=== PATIENT | male | born 1975 | race Caucasian/White ===

== ENCOUNTER → 2017-12-11 15:45 | Outpatient (CLI) | payer OTHER, SELFPAY ==
[2017-12-11 18:01] LABS: Amphetamine Urine VISTA NEGATIVE (<1000 ng/mL); Barbiturate Urine VISTA NEGATIVE (< 200 ng/mL); Benzodiazepine Urine VISTA NEGATIVE (< 200 ng/mL); Cocaine Urine VISTA NEGATIVE (< 300 ng/mL); Ecstacy Urine VISTA NEGATIVE (< 500 ng/mL); Methadone Urine VISTA NEGATIVE (< 300 ng/mL); PCP Urine VISTA NEGATIVE (< 25 ng/mL); THC Urine VISTA NEGATIVE (< 50 ng/mL); Vista UDS pH Range 6
== END ==
PROVIDERS: Family Provider Internal Medicine; PCP Internal Medicine; Visit Provider Anesthesiology
DX: F11.20 Opioid dependence, uncomplicated (principal)
CPT/HCPCS: 80307

== ENCOUNTER 2018-01-19 03:59 | Emergency (ER) | payer OTHER, SELFPAY ==
[2018-01-19 04:00] VITALS: BP 168/86; PULSE 104; RESP 20; TEMP 36.5; O2SAT 97; BMI 40.8
--- NOTE | 2018-01-19 04:07 | CT_ITS ---
STUDY: CT ABDOMEN AND PELVIS WITHOUT CONTRAST REASON FOR EXAM: Male, 42 years old. LOW ABDOMEN PAIN THAT RADIATES INTO BILATERAL FLANK AND NAUSEA THIS AM,ELEVATED BP RADIATION DOSAGE (If Supplied By Facility): CTDIvol = ( 23.63 ) mGy, DLP = ( 1387.22 ) mGycm TECHNIQUE: Transaxial images were obtained from the dome of the diaphragm to the symphysis pubis without oral contrast, and without intravenous contrast. Sagittal and coronal images were reconstructed. Individualized dose optimization techniques were used for this CT. COMPARISON: None. FINDINGS: The visualized lung bases are unremarkable. The visualized portions of the heart are within normal limits. There is a diffuse contour abnormality of the liver consistent with cirrhotic changes. There are surgical clips in the gallbladder fossa consistent with a prior cholecystectomy. There is moderate splenomegaly measuring 21 x 12 x 17 cm. Normal pancreas. Normal bilateral adrenal glands. Normal right kidney. Normal left kidney. Normal visualized stomach. Normal small intestine. Normal colon. The appendix is visualized and appears normal. Normal abdominal aorta. Normal inferior vena cava. Large varicose veins are seen in the retroperitoneum most likely represent portosystemic venous shunts. Normal urinary bladder. Normal abdominal wall. Normal osseous structures. CT/Abdomen/Pelvis without Cont IMPRESSION: Liver cirrhosis. Portal hypertension. Moderate splenomegaly. Large varicose veins are seen in the retroperitoneum most likely represent portosystemic venous shunts. Electronically Signed: Timoteo Harmon MD at 5:23 EDT Tel , Service support ,
--- NOTE | 2018-01-19 04:09 | ED.DCSUM_ITS ---
- ER Visit Summary Date of Service: 01/19/18 Chief Complaint: [] Left flank and back pain History of Present Illness: The patient is a 42 M planing of left flank and lower abdominal pain and back pain since 130 this morning approximately 2 and half hours ago. He came on suddenly a sleep continuous sharp pain. Difficult to get comfortable. Associated with nausea. He uses Zofran with minimal relief. No history of kidney stone. Never had this before. [place] normal before bed. Physical Examination: Vital signs reviewed General: Well-nourished well-developed Head: Normocephalic atraumatic Eyes: Pupils equal round and reactive to light extraocular movements intact ENT: TMs clear no hemotympanum no trauma Neck: Nontender full range of motion Cardiovascular: Regular rate rhythm no murmurs normal S1-S2 Respiratory: No distress clear to auscultation bilaterally chest nontender Abdomen: Soft nontender nondistended normal bowel sounds no masses Back: Nontender no CVA tenderness Extremities: Nontender active range of motion ?4 extremities no trauma Skin: Normal color no trauma Neuro alert oriented cranial nerves II through XII intact normal strength sensation reflexes Test Results: [] Emergency Department Course and Treatment: [] IV established given IV fluids Zofran Toradol and morphine. Lab work and CT abdomen pelvis obtained. Work shows a chronic thrombocytopenia at 50,000. Chemistries normal except glucose 133. Urinalysis normal. CT abdomen pelvis shows evidence of liver cirrhosis findings with moderate splenomegaly and varicosities. No stones seen or other abnormalities. This was discussed with the patient. He has been told he has a fatty liver in the past. He has never had hepatitis. He can follow-up with gastroenterology. At this time however reevaluation he just has some mild soreness in his right groin area. No hernia felt. Left-sided pain is gone. Is unclear to me the cause of this discomfort. Nonetheless I feel he can follow -up. Treatment Plan: [] Disposition: [] Impression: [] Lower abdominal pain This note was generated with [employer] dictation software. It may contain incorrect words, spelling, and punctuation that were not noted in review of the chart prior to signing ED Disposition - Plan for ED Patient: Chief Complaint: Abd Pain Referrals: Joselyn Cummings DO [Primary Care Provider] -
[2018-01-19] MEDS: Ondansetron 4 MG/2 ML Vial IV (04:17)
[2018-01-19 04:18] LABS: Absolute Lymphocyte Count 0.58 X10^3/ul (0.83-4.51); Absolute Neutrophil Count 6.7 X10^3/uL (2.0-7.7); Basophil# 0.01 X10^3/uL; Basophil% 0.1 % (0-1); Eosinophil# 0.14 X10^3/uL; Eosinophils% 1.7 % (0-5); Hematocrit 43.4 % (40-54); Hemoglobin 14.7 g/dl (13.0-16.5); Lymphocyte # 0.58 X10^3/ul (4.0); Lymphocyte % 7.2 % (19-41); Mean Corp Hgb Conc 33.9 g/gl (32-36); Mean Corpuscular Hgb 30.6 pg (27.0-32.0); Mean Corpuscular Volume 90.4 fL (80-94); Mean Platelet Vol. 11.6 fl (6.2-12.0); Monocyte# 0.62 X10^3/uL; Monocyte% 7.7 % (0-10); Neutrophil # 6.67 X10^3/uL (2.7-7.7); Neutrophil % 83.2 % (47-70); Platelet Count 59 K/mm3 (150-450); RBC Distribution Width CV 15.3 % (11.6-14.6); RBC Distribution Width SD 50.5 fl (35.1-43.9)
[2018-01-19] MEDS: morphine 8 MG/ML Syringe IV (04:18)
[2018-01-19] MEDS: Ketorolac 30 MG/ML Syringe IV (04:18)
[2018-01-19] MEDS: 0.9% Normal Saline 1,000 ML 1000 ML IV (04:18)
[2018-01-19 04:20] LABS: Differential Indicated SCAN CRITERIA MET; POSITIVE COUNT NO; POSITIVE DIFFERENTIAL YES; POSITIVE MORPHOLOGY NO
[2018-01-19 04:27] LABS: Anion Gap 5 (5-15); BUN 12 mg/dL (7-18); BUN/Creat Ratio 14.7 RATIO (10-20); Calcium,Total 8.4 mg/dL (8.5-10.1); Chloride 106 mmol/L (98-107); Creatinine, Serum 0.82 mg/dL (0.70-1.30); EST Glomerular Filtration Rate 109 mL/min (>60); Est Glom Filt Rate - Afr Amer 132 mL/min (>60); Estimated Creatinine Clearance 138.83 ml/min; Glucose 133 mg/dL (74-106); Potassium 4.4 mmol/L (3.5-5.1); Sodium Level 142 mmol/L (136-145)
[2018-01-19 04:51] LABS: Platelet Estimate MKD DEC (ADEQ)
[2018-01-19 04:52] LABS: Differential Comment SCANNED
[2018-01-19 04:56] LABS: Bacteria 0 SEEN /hpf (None Seen); Color, Urine Yellow (Yellow); Glucose, Dipstick Normal (Normal); Ketone-Dipstick Negative (Negative); Leukocyte Esterase-Dipstick Negative /ul (Negative); Mucous, Urine 0 SEEN /hpf (<or=2+); Nitrite-Dipstick Negative (Negative); Occult Blood-Urine Negative /ul (Negative); Protein-Dipstick Negative (Negative); Red Blood Cells-Urine 0 SEEN /hpf (0-5); Specific Gravity, Urine 1.015 (1.002-1.030); Squamous Epithelial Cells - UA 0 SEEN /hpf (0-5); Urine Bilirubin Dipstick Negative (Negative); Urine Clarity Clear (Clear); Urine Urobilinogen Normal (Normal); White Blood Cells 0 SEEN /hpf (0-5)
--- NOTE | 2018-01-19 05:37 | ED.DEP ---
ED Disposition - Plan for ED Patient: Disposition: Home or Assisted Living Chief Complaint: Abd Pain Instructions: ED Abdominal Pain Unkn Cause Referrals: Joselyn Cummings DO [Primary Care Provider] - Vahe Rowell MD [STAFF PHYSICIAN] -
[2018-01-19 05:47] VITALS: BP 157/68; PULSE 106; RESP 18; O2SAT 98
--- NOTE | 2018-01-19 05:48 | ED.RN ---
IV DC'ED, CATHETER INTACT, SMALL GAUZE DRESSING PLACED. DISCHARGE INSTRUCTIONS GIVEN TO AND REVIEWED WITH PATIENT, PATIENT DENIES QUESTIONS OR CONCERNS AND VOICES UNDERSTANDING OF DISCHARGE INSTRUCTIONS. PT AMBULATES OUT OF ROOM WITHOUT DIFFICULTY.
== END 2018-01-19 05:49 | disposition home or self-care (01) ==
PROVIDERS: Emergency Provider Emergency Medicine; Family Provider Internal Medicine; PCP Internal Medicine
DX: R10.30 Lower abdominal pain, unspecified (principal); E66.9 Obesity, unspecified; R11.0 Nausea; E11.9 Type 2 diabetes mellitus without complications; Z86.718 Personal history of other venous thrombosis and embolism; Z86.14 Personal history of Methicillin resistant Staphylococcus aureus infection; K74.60 Unspecified cirrhosis of liver; R16.1 Splenomegaly, not elsewhere classified; I83.90 Asymptomatic varicose veins of unspecified lower extremity
CPT/HCPCS: 74176; 80048; 81001; 85025; 96361; 96374; 96375; 99283; J7030; A4216; J2405

== ENCOUNTER → 2018-02-09 07:25 | Outpatient (CLI) | payer OTHER, SELFPAY | PROVIDERS: Family Provider Internal Medicine; PCP Internal Medicine; Visit Provider Anesthesiology | DX: Z53.9 Procedure and treatment not carried out, unspecified reason (principal) ==

== ENCOUNTER → 2018-04-23 17:56 | Outpatient (CLI) | payer SELFPAY ==
[2018-04-23 19:16] LABS: Amphetamine Urine VISTA POSITIVE (<1000 ng/mL); Barbiturate Urine VISTA NEGATIVE (< 200 ng/mL); Benzodiazepine Urine VISTA NEGATIVE (< 200 ng/mL); Cocaine Urine VISTA NEGATIVE (< 300 ng/mL); Ecstacy Urine VISTA NEGATIVE (< 500 ng/mL); Methadone Urine VISTA NEGATIVE (< 300 ng/mL); PCP Urine VISTA NEGATIVE (< 25 ng/mL); THC Urine VISTA NEGATIVE (< 50 ng/mL); Vista UDS pH Range 6
== END ==
PROVIDERS: Family Provider Internal Medicine; PCP Internal Medicine; Visit Provider Anesthesiology Pain Medicine
DX: F11.20 Opioid dependence, uncomplicated (principal)
CPT/HCPCS: 80307

== ENCOUNTER → 2018-07-16 15:01 | Outpatient (CLI) | payer OTHER, SELFPAY ==
[2018-07-16 16:31] LABS: International Normalized Ratio 1.3; Prothrombin Time (Protime)PT. 16.5 SECONDS (11.7-14.9)
[2018-07-16 16:32] LABS: Partial Thromboplast Time 36.7 Seconds (24.1-36.2)
== END ==
PROVIDERS: Family Provider Internal Medicine; PCP Internal Medicine; Referring Provider Anesthesiology; Visit Provider Anesthesiology
DX: K74.69 Other cirrhosis of liver (principal)
CPT/HCPCS: 36415; 85610; 85730

== ENCOUNTER → 2018-09-17 19:23 | Outpatient (CLI) | payer OTHER, SELFPAY ==
[2018-09-17 20:20] LABS: Amphetamine Urine VISTA POSITIVE (<1000 ng/mL); Barbiturate Urine VISTA NEGATIVE (< 200 ng/mL); Benzodiazepine Urine VISTA NEGATIVE (< 200 ng/mL); Cocaine Urine VISTA NEGATIVE (< 300 ng/mL); Ecstacy Urine VISTA NEGATIVE (< 500 ng/mL); Methadone Urine VISTA NEGATIVE (< 300 ng/mL); PCP Urine VISTA NEGATIVE (< 25 ng/mL); THC Urine VISTA NEGATIVE (< 50 ng/mL); Vista UDS pH Range 6
== END ==
PROVIDERS: Family Provider Internal Medicine; PCP Internal Medicine; Visit Provider Anesthesiology
DX: F11.20 Opioid dependence, uncomplicated (principal)
CPT/HCPCS: 80307

== ENCOUNTER 2018-09-22 16:00 | Outpatient (RCR) | payer OTHER, SELFPAY ==
--- NOTE | 2018-08-23 14:34 | HP.PTEVAL_ITS ---
Patient's Visit Information LIBRADO CARLSON is a 43 year old M referred to Physical Therapy by Rafael Beck MD with a diagnosis of Back pain, leg pain.. Date of Evaluation: 08/23/18 Physical Therapist: Robe Blair DPT, OC - Visit Plan Frequency: 3x /Week Duration: 4-6 Weeks Plan: 3x/week x 3-6 start with pool therapy for movement of LB, postural correection, L/S ext and core, LE,postural strength/ex. Progress to I or land as helpful. Overall pateint is very painful and if improvements not made, I would recommend return to doctor for possible referral to ortho. Although they could not heklp him 2 yrs ago, things may have changed. - Subjective Subjective: Deteriorating disc in LB. R LBP constant for 3 years, no specific onset incident. Had MRI and showed degeneration. Saw surgeon last year and cannot help him. Is in pain management with injections, got stomach pain and catscan showed cirrhosis so no more injections. On oxycodone for LBP was 3x/day and down to 2x/day. Sleep is interrupted as he cannot get to sleep, rolling really hurts. Turning too quick gives shot of pain like it does rolling at night. Leg cramps at night 50% of nights in quad and calf. Intermittent edema in legs but not lately. 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 Not missed work lately but has in past. Basic aDLS are a pain. Uses grabber a lot at home. Can dress self. I shower. Is not riding motorcycle and avoids any fun stuff due to back pain. [place] snot ride bikes. Did ride them al little in summer but worse lately. Walks dogs at night 15 minutes, worse as he goes. Lying down is best posiition. No problems with bowel or bladder. - Pain R LBP Pain Intensity (Out of 10): 7 Pain Intensity Range: 5, 7 Comment: bad last couple weeks. - Objective leans R in sitting. slow transfers. Coughing hurts. Pt is hesitant with all movements. flat lordosis and very limited pelvic and postural movments. LB AROM ext max limited and painful centrally, R SB limited>L and painful to R. Flexion mod limited and hesitant. HS adn gastroc mod tight, quads mod tight. + slump R and + SLR R. reflexes 2/3 patella and achilles. Sensation LE WNL to gross light touch. Strength LE 5/5 ankles, 4/5 R hip and knee due to pain with flexion and extension of both. PPU 1/2 way and painful self limiting. slightly better extension after PPUx10. Safe and I with gait and trasnfers albeit slow. - Goals Goal 1:: Trasnfer out of chair and fro table without evidence slowness or pain Goal Time Frame: 4-6 Weeks Goal 2:: Full L/S AROM with no greater than 1/10 pain. Goal Time Frame: 4-6 Weeks Goal 3:: Pt feel 50% better at 1-2/10 pain at worst. Goal Time Frame: 4-6 Weeks Goal 4:: I approp HEP to limit future problems. Goal Time Frame: 4-6 Weeks Goal 5:: Sleep without discomfort at night Goal Time Frame: 4-6 Weeks - Rehabilitation Potential Physical Therapy Diagnosis: LB radiulopathy Rehabilitation Potential: Fair - Anticipated Interventions Patient/Client Instruction: Educate patient on: Condition, Plan of Care For the Purpose of:: To decrease pain Therapeutic Exercise to Include: Strength training, Flexibilty training, In an aquatic setting, Passive ROM, Active ROM, Dynamic Lumbar Stabilization, Jose Exercises For the Purpose of:: To decrease pain, To increase ROM, To improve nutrient delivery to tissue, To improve muscle performance and motor function, To increase tolerance to activity/condition/position, To improve ability of physical actions for home/community/work/leisure Thank you for the opportunity to evaluate your patient. For Medicare and Medicare HMO plans, please review the plan of care and approve it. It will need to be FAXED BACK to us at [phone] for Medicare purposes. Please let me know if there are questions or concerns regarding this plan of care. Physician Signature: Date:
--- NOTE | 2018-12-06 08:02 | HP.PT.NRP ---
HP - Discharge Summary (1) - Patient Information LIBRADO CARLSON was seen in my office for initial evaluation on 08/23/18. The following Plan of Care was established for this patient: Initial Frequency: 3x /Week Initial Duration: 4-6 Weeks - Anticipated Interventions Patient/Client Instruction: Educate patient on: Condition, Plan of Care For the Purpose of:: To decrease pain Therapeutic Exercise to Include: Strength training, Flexibilty training, In an aquatic setting, Passive ROM, Active ROM, Dynamic Lumbar Stabilization, Jose Exercises For the Purpose of:: To decrease pain, To increase ROM, To improve nutrient delivery to tissue, To improve muscle performance and motor function, To increase tolerance to activity/condition/position, To improve ability of physical actions for home/community/work/leisure This patient was last seen in our office 09/22/18. Pertinent comments regarding their Physical therapy will appear below: Pt seen 5 visits of his 12 visit POC adn then neglected to schedule any further visits. At this point, it has been over two months and i will disconinue due to non attendance. At this point I will be discontinuing this patient from physical therapy. I would be happy to see this patient again in the future if found appropriate by the physician. Thank you! Robe Blair, DPT, OCS, CSCS
== END 2018-09-22 19:00 | disposition home or self-care (01) ==
LOC: PT 16:00
PROVIDERS: Family Provider Internal Medicine; PCP Internal Medicine; Referring Provider Anesthesiology; Visit Provider Anesthesiology
DX: M54.9 Dorsalgia, unspecified (principal); M79.606 Pain in leg, unspecified
CPT/HCPCS: 97113; 97162

== ENCOUNTER → 2018-11-12 18:18 | Outpatient (CLI) | payer OTHER, SELFPAY ==
[2018-11-12 18:58] LABS: Amphetamine Urine VISTA POSITIVE (<1000 ng/mL); Barbiturate Urine VISTA NEGATIVE (< 200 ng/mL); Benzodiazepine Urine VISTA NEGATIVE (< 200 ng/mL); Cocaine Urine VISTA NEGATIVE (< 300 ng/mL); Ecstacy Urine VISTA NEGATIVE (< 500 ng/mL); Methadone Urine VISTA NEGATIVE (< 300 ng/mL); PCP Urine VISTA NEGATIVE (< 25 ng/mL); THC Urine VISTA NEGATIVE (< 50 ng/mL); Vista UDS pH Range 6
== END ==
PROVIDERS: Family Provider Internal Medicine; PCP Internal Medicine; Visit Provider Anesthesiology
DX: F11.20 Opioid dependence, uncomplicated (principal)
CPT/HCPCS: 80307

== ENCOUNTER 2019-01-16 23:08 | Inpatient (IN) | payer OTHER, SELFPAY ==
[2019-01-16 23:09] VITALS: BP 157/79; PULSE 96; RESP 20; TEMP 37; O2SAT 99; BMI 38.5
--- NOTE | 2019-01-17 00:45 | ED.VISSUMM ---
- ER Visit Summary Date of Service: 01/17/19 Chief Complaint: Acute on chronic back pain with chronic pain syndrome Right lower leg redness, swelling and pain with chills. History of Present Illness: The patient is a 43 M history of liver cirrhosis, fatty liver, prior MRSA and cholecystectomy. Patient states he is getting chemotherapy back pain for last 9 days. See pain management. He denies any falls or trauma. He is on no blood thinners. He also states he had a prior DVT in his right lower leg after surgery. He is a right lower leg pain, redness and swelling the to date. No fever but chills. No fall or trauma to his leg. Physical Examination: Middle-aged male complaining of pain. Vital signs are stable. Temperature 98.6. He does not look septic or toxic. HEENT exam unremarkable. Neck nontender. No lymphadenopathy. Lungs clear to auscultation bilaterally. Heart regular rate and rhythm no murmur. Abdomen soft and nontender. Normal bowel sounds no peritoneal signs. Patient is moving all 4 extremities. Neurovascular intact. Left lower extremity is unremarkable. Right lower extremity from the knee to the foot has 1+ pitting edema. Redness and warmth. Tender anteriorly. No cords. Clinically that anterior right lower leg looks like cellulitis. He has dorsi and plantar flexion in both lower extremities. Normal DP pulses. Back the cervical, thoracic and lumbar spines are nontender. There is no signs of trauma. He has right SI tenderness. Neurologically is awake alert with no focal motor or sensory deficits. Test Results: CBC White count 6.5. Hemoglobin 13. No bands. Chemistries normal. Blood cultures x2 sent. Emergency Department Course and Treatment: Treated with morphine, Zofran and Toradol for pain. Started on Zosyn for right lower extremity cellulitis. He will also need an ultrasound of the right lower extremity due to his history of a prior DVT but that is unavailable at this time. Treatment Plan: Repeat exam at 020 8 AM patient is doing well. He I went over his test results. I spoke to the hospitalist about admission. At this time we will treat him for possible right lower leg cellulitis. However this could be a DVT and will need ultrasound. The hospitalist and I discussed that. Disposition: Admission Impression: Right lower extremity cellulitis with edema Acute on chronic back pain Rule out DVT right lower extremity pending noninvasive study This note was generated with [employer] dictation software. It may contain incorrect words, spelling, and punctuation that were not noted in review of the chart prior to signing ED Disposition - Plan for ED Patient: Referrals: Joselyn Cummings DO [Primary Care Provider] -
[2019-01-17] MEDS: Ondansetron 4 MG/2 ML Vial IV ×2 (01:08→08:35)
[2019-01-17] MEDS: Ketorolac 30 MG/ML Syringe IV (01:10)
[2019-01-17] MEDS: morphine 8 MG/ML Syringe 6 MG IV (01:13)
[2019-01-17 01:19] LABS: Absolute Lymphocyte Count 0.57 X10^3/ul (0.83-4.51); Absolute Neutrophil Count 5.4 X10^3/uL (2.0-7.7); Basophil# 0.01 X10^3/uL; Basophil% 0.2 % (0-1); Eosinophil# 0.12 X10^3/uL; Eosinophils% 1.9 % (0-5); Hematocrit 38.8 % (40-54); Hemoglobin 13.6 g/dl (13.0-16.5); Lymphocyte # 0.57 X10^3/ul (4.0); Lymphocyte % 8.8 % (19-41); Mean Corp Hgb Conc 35.1 g/gl (32-36); Mean Corpuscular Hgb 31.3 pg (27.0-32.0); Mean Corpuscular Volume 89.4 fL (80-94); Monocyte# 0.34 X10^3/uL; Monocyte% 5.3 % (0-10); Neutrophil # 5.41 X10^3/uL (2.7-7.7); Neutrophil % 83.8 % (47-70); RBC Distribution Width CV 14.9 % (11.6-14.6); RBC Distribution Width SD 48.7 fl (35.1-43.9); Red Blood Count 4.34 M/mm3 (4.6-6.2); White Blood Count 6.5 K/mm3 (4.4-11.0)
[2019-01-17 01:23] LABS: Anion Gap 5 (5-15); BUN 9 mg/dL (7-18); BUN/Creat Ratio 11.9 RATIO (10-20); Calcium,Total 8.2 mg/dL (8.5-10.1); Chloride 105 mmol/L (98-107); Creatinine, Serum 0.76 mg/dL (0.70-1.30); EST Glomerular Filtration Rate 119 mL/min (>60); Est Glom Filt Rate - Afr Amer 144 mL/min (>60); Estimated Creatinine Clearance 148.25 ml/min; Glucose 102 mg/dL (74-106); Potassium 3.5 mmol/L (3.5-5.1); Sodium Level 139 mmol/L (136-145)
[2019-01-17 01:33] LABS: Platelet Count 49 K/mm3 (150-450)
[2019-01-17 01:34] LABS: Differential Comment SCANNED; Differential Indicated SCAN CRITERIA MET; POSITIVE COUNT YES; POSITIVE DIFFERENTIAL YES; POSITIVE MORPHOLOGY NO; Platelet Estimate MKD DEC (ADEQ); Red Cell Morphology NORM C+C NORMAL (NORM C&C)
--- NOTE | 2019-01-17 01:34 | ED.RN ---
dr whitley made aware of platelets of 49.
--- NOTE | 2019-01-17 02:02 | HP.PCM_ITS ---
Problem List (1) DVT (deep venous thrombosis) Status: Chronic Qualifiers: DVT location: lower extremity Affected thrombotic vein of extremity: unspecified vein of extremity Chronicity: unspecified Laterality: unspecified laterality Qualified Code(s): I82.409 - Acute embolism and thrombosis of unspecified deep veins of unspecified lower extremity (2) Morbid obesity due to excess calories Status: Chronic (3) Cellulitis Status: Acute Qualifiers: Site of cellulitis: extremity Site of cellulitis of extremity: lower extremity Laterality: right Qualified Code(s): L03.115 - Cellulitis of right lower limb History of Present Illness Date of Admission: 01/17/19 Chief Complaint: right leg pain The patient is a 43 year old M Soriaon cirrhosis; MRSA of the left ankle; DVT after surgery on the right leg; chronic back pain who follows up with pain management; and who presented to the emergency department with 1 day history of progressively worsening excruciating stabbing and throbbing pain of his right leg that increases with movement. His pain is nonradiating. Associated with his symptoms is chills; nausea without vomiting as well as anorexia. At the emergency department patient was given morphine and Toradol to help with his pain. Also patient noticed swelling, redness and increased warmth of his right lower extremity. Also patient reports of increasing pain of his lower back. Significantly patient follows up with Dr. Beck; pain management doctor associated with [facility]. Patient reported that every 2-4 months he gets shots at his back. He reported that 5 days after receiving his last shot he noticed increasing pain at his back. At emergency department patient was given morphine; Zofran; Toradol and Zosyn. Patient has been using a scooter for mobility. Past Medical History Past Medical History (Chronic Problems): Chronic Problems DVT (deep venous thrombosis) (Chronic) Morbid obesity due to excess calories (Chronic) Diabetes mellitus with complication (Chronic) Edema (Chronic) Venous insufficiency (Chronic) Allergies No Known Allergies Allergy (Verified 01/19/18 03:59) Home Medications: Ambulatory Orders Medication Instructions Recorded Oxycodone HCl/Acetaminophen 1 - 2 tablet PO Q6H PRN PRN #15 08/17/16 [Percocet 5-325] tablet Gabapentin [Neurontin] 300 mg PO BIDCM 01/07/17 Methocarbamol [Robaxin] 500 mg PO QHS 01/07/17 Ondansetron [Zofran Odt] 4 mg PO Q8H PRN PRN #10 tablet 06/30/17 Dextroamp-Amphet ER 30 mg Cap 30 mg PO BID 01/17/19 Surgical History: cholecystectomy, - - Foot surgery, Finger surgery, Testicular surgery, ? EGD/L[facility]aro. Psychiatric History: Attn. deficit disorder Lives: With Family Smoking Status: Former smoker Alcohol: None - *Family History Maternal History Items: COPD, Hypertension Paternal History Items: Cancer Review of Systems Constitutional: Reports: Chills. Denies: Fever, Weight Change HEENT: Denies: Head Aches, Sinus Congestion, Sinus Drainage Cardiovascular: Reports: Edema - Right leg. Denies: Chest Pain, Palpitations Respiratory: Denies: Cough, Shortness of breath at rest, Sputum production Gastrointestinal: Reports: Nausea. Denies: Abdominal Pain, Vomiting Genitourinary: Denies: Dysuria Musculoskeletal: Reports: Back Pain, Leg Pain. Denies: Joint Pain Skin: Denies: Rash, Wounds Neurological: Denies: Numbness, Tingling, Focal weakness Psychiatric: Denies: Anxiety, Depression, Homicidal Ideations, Suicidal Ideations Hematologic/ Lymphatic: Denies: Easy Bruising, Easy Bleeding VTE Information - Inpt Only VTE Present on Admission: No VTE Mechan Device Prophylaxis: None VTE Pharm Prophylaxis ordered?: Yes Patient Problems: Active and Suspected Problems Cellulitis (Acute) - Physical Exam General: Alert, Oriented x3, Cooperative HEENT: Atraumatic, PERRLA, EOMI, Normocephalic Neck: Supple, No JVD, Negative Carotid Bruits Lungs: Clear to auscultation, Normal air movement Cardiovascular: Regular rate, No murmurs Abdomen: Bowel Sounds Present, Soft, Non Tender Extremities: Capillary Refill Less than 3 Seconds, Edema - Right leg, Tenderness - Right leg Skin: - - Erythema and increased redness of right leg. Ulcer on right fowler. Musculoskeletal: No Tenderness to Palpation of Joints or Extremities Neurological: Cranial nerves II-XII grossly intact Psych/Mental Status: Normal Affect, Appropriate Vital Signs Temp Pulse Resp BP Pulse Ox 98.6 F 96 20 H 157/79 H 99 01/16/19 23:09 01/16/19 23:09 01/16/19 23:09 01/16/19 23:09 01/16/19 23:09 Oxygen Delivery Method Room Air Weight: 139.706 kg Body Mass Index (BMI) 38.5 Finger Stick Blood Glucose 106 Laboratory Tests Past 24 Hrs 01/17/19 01/17/19 01:00 01:00 WBC 6.5 RBC 4.34 L Hgb 13.6 Hct 38.8 L MCV 89.4 MCH 31.3 MCHC 35.1 RDW 14.9 H RDW Differential 48.7 H Plt Count 49 L* MPV 11.0 Immature Gran % (Auto) 0.000 Neut % (Auto) 83.8 H Lymph % (Auto) 8.8 L [place] % (Auto) 5.3 Eos % (Auto) 1.9 Baso % (Auto) 0.2 Absolute Neuts (auto) 5.4 Absolute Lymphs (auto) 0.57 L Total Counted Not Reportable Differential Comment SCANNED Diff Path Review May foll Platelet Estimate MKD DEC RBC Morphology NORM C+C Sodium 139 Potassium 3.5 Chloride 105 Carbon Dioxide 29.0 Anion Gap 5 BUN 9 Creatinine 0.76 Estim Creat Clear Calc 148.25 Est GFR (MDRD) Af Amer 144 Est GFR (MDRD) Non-Af 119 BUN/Creatinine Ratio 11.9 Glucose 102 Calcium 8.2 L Assessment/Plan All Active Problems Cellulitis (Acute) Intervertebral disc disorder with radiculopathy of lumbar region (Acute) Malnutrition (Resolved) Ulcer of left ankle (Resolved) Other intervertebral disc degeneration, lumbar region (Acute) Other intervertebral disc degeneration, lumbar region (Acute) Spinal stenosis of lumbar region with neurogenic claudication (Acute) Spinal stenosis of lumbar region with neurogenic claudication (Acute) Lumbar disc prolapse with compression radiculopathy (Acute) Lumbar disc disease with radiculopathy (Acute) Lumbar disc disease with radiculopathy (Acute) Intervertebral disc disorder with radiculopathy of lumbar region (Acute) Cellulitis of left ankle (Resolved) The patient is a 43 year old M Sor[place] cirrhosis; MRSA of the left ankle; DVT after surgery on the right leg; chronic back pain who follows up with pain management; and who presented to the emergency department with 1 day history of progressively worsening excruciating stabbing and throbbing pain of his right leg with associated chills; nausea without vomiting and anorexia consistent with likely cellulitis. Acute Cellulitis Also on right fowler probable portal of entry of bacteria. Patient received Zosyn in the emergency department. Patient has no increased risk of Pseudomonas so will switch to Ancef 2 g every 8 hours. Follow CBC and BMP. We will get ultrasound of his right lower extremity to rule out DVT. Continue home Percocet as needed. Morphine as needed added to regimen. IV Zofran ordered. Because of his history of [place] cirrhosis will shy away from acetaminophen. Blood cultures were ordered in the emergency department, follow Acute on chronic lower back pain. Pain management as above Methocarbamol continued Gabapentin continued. Consider discussing case with Dr. Beck; his pain management doctor. PT and OT to work patient. ADHD Dextroamphetamine continued. Diabetes mellitus On presentation his blood glucose was within goal. Diet controlled at home Calorie controlled diet ordered. Thrombocytopenia On admission his platelet was 49 Chronic Differential diagnosis include liver disease Trend Elevated blood pressure without diagnosis of hypertension On presentation his blood pressure was not within goal. Trend blood pressures DVT prophylaxis Subcutaneous Lovenox. Code Visit OBSV E&M: [id number] Initial observation care L3
--- NOTE | 2019-01-17 03:20 | VDLE_ITS ---
Reason For Study: Pain RLE RIGHT LEFT GSV is normal. CFV is compressible, spontaneous, phasic, CFV is compressible, spontaneous, phasic, competent, and demonstrates normal competent and demonstrates normal augmentation. augmentation. FV is compressible, spontaneous, phasic, competent and demonstrates normal augmentation. POP V is compressible, spontaneous, phasic, competent and demonstrates normal augmentation. T/P Trunk is compressible. PTV is compressible. RT PerV is compressible. Rt SoleusV is dilated and non compressible consistent with acute DVT. Procedure Exam performed portable in patient room. A preliminary report was called and/or faxed to [facility]. Interpretation Summary Acute deep venous thrombosis right soleus vein. Patent and compressible right great saphenous vein Normal flow patterns left common femoral vein. Ordering Physician: Patrick Delgado Referring Physician: Joselyn Cummings Performed By: Charissa Aj, CYNDI, RVT
[2019-01-17 03:38] VITALS: BMI 38.9; BMI 39.0
[2019-01-17 04:00] VITALS: BMI 39.0
[2019-01-17 04:06] VITALS: BP 129/59; PULSE 103; RESP 18; TEMP 37.3; O2SAT 94
[2019-01-17 04:18] LABS: Albumin, Serum 3.6 g/dL (3.2-5.0)
[2019-01-17] MEDS: oxyCODONE 5 MG Tablet PO ×3 (04:59→19:35)
[2019-01-17] MEDS: Cefazolin 2 GM in 0.9% Normal Saline 100 ML IV ×2 (05:00→14:50)
[2019-01-17 07:35] VITALS: O2SAT 91
[2019-01-17 08:06] VITALS: BP 125/65; PULSE 78; RESP 16; TEMP 36.8; O2SAT 98
[2019-01-17] MEDS: Gabapentin 300 MG Capsule PO ×2 (08:22→16:53)
[2019-01-17] MEDS: 0.9% NaCl Peripheral Flush Adult/Peds IV (08:35)
[2019-01-17 11:46] LABS: Pathologist Review Reviewed
[2019-01-17] MEDS: APIXABAN 5 MG TABLET 10 MG PO ×2 (12:22→21:14)
--- NOTE | 2019-01-17 12:28 | CASEMGMT ---
RN CM Assessment Presentation: Cellulitis, radiculopathy of lumbar region Intro role of CM and purpose of RN CM assessment to patient in room. Pt is sleepy but able to participate in assessment. Demographics, PCP and Pharmacy verified. Pt states prior to a week ago he was independent, but back pain and leg pain have made it difficult for him to ambulate. He was using an umbrella around the house. RN CM let him know his can purchase cane for him for safety, but CM will review Pt/OT notes. Pt continued to work, used [employer] work. PCP: Dr. Joselyn Cummings Preferred Pharmacy: [facility] Insurance:[facility] Prescription Benefit: yes LNOK: Carmencita Ceballos Living Arrangements: First floor set up with bathroom and bedroom. can assist, but pt was independent prior to this episode. Transportation: drives DME: no HHC: no Patient DC goals: Home DC PLAN: anticipate home on discharge. PT/OT evaluations deferred for today. Rickie FERRELL RN ACM
--- NOTE | 2019-01-17 13:30 | PCM.PROGNOTE ---
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 Temp at admission to the emergency department was 98.6. White blood cell count was 6.5 with 84% neutrophils. Platelet count was low at 49,000 and review of old labs shows it has been chronically low since 2014. BMP was unremarkable. Blood cultures were drawn in the emergency department and he was treated with Zosyn. He was admitted to the hospital and was started on Ancef by the night hospitalist. A venous ultrasound was done on the right lower extremity and showed acute deep vein thrombosis of the right soleus vein. The right greater saphenous vein was patent and compressible and there was normal flow in the left common femoral vein. He has had MRSA infection in the RLE MM and had to have I&D in the past. This was in 2016. Recently he has been having increased back pain and has been using a scooter to get around at work. No FH of hypercoagulable disorders. His legs always swell and he does not consistently wear compression stockings. He does not moisturize his legs and the skin of the RLE is cracked open in several spots. He has a venous stasis ulcer on the R distal lateral leg that is currently healed but, when his legs swell a lot it breaks open. There is also a very small ulceration on the anterior fowler about mid fowler that appears to have a yellow crust. - Physical Exam General: Alert, Oriented x3, Cooperative, No apparent distress HEENT: Atraumatic, PERRLA, Normocephalic Oral: Moist Mucosa Neck: Supple Lungs: Clear to auscultation Cardiovascular: Regular rate, Regular Rhythm, Normal S1, Normal S2, No Gallop Abdomen: Bowel Sounds Present, Soft, Non Tender, Non-Distended, - - no pitting edema in the flanks Extremities: No clubbing, No cyanosis, Edema - of the RLE distl to the knee. There is erythema and increased warmth to touch. The skin over the distal leg is dry and cracked. there is a healed venous stasis ulcer on the lateral distal LE that periodically breaks open when his legs swell. there is a pinpoint opneing in the skin over the mid tibial shaft that has a small gold crust on it. No purulent DC. Neurological: Cranial nerves II-XII grossly intact, Neuro grossly intact Psych/Mental Status: Appropriate Vital Signs Temp Pulse Resp BP Pulse Ox 98.3 F 78 16 125/65 H 98 01/17/19 08:06 01/17/19 08:06 01/17/19 08:06 01/17/19 08:06 01/17/19 08:06 Oxygen Delivery Method Room Air Weight: 311 lb 15.265 oz Body Mass Index (BMI) 38.9 Finger Stick Blood Glucose 106 Intake and Output for Last 24 Hours 01/15/19 01/16/19 01/17/19 23:59 23:59 23:59 Intake Total 368 / 368 Balance 368 / 368 Laboratory Tests Past 24 Hrs 01/17/19 01/17/19 01/17/19 01:00 01:00 01:00 WBC 6.5 RBC 4.34 L Hgb 13.6 Hct 38.8 L MCV 89.4 MCH 31.3 MCHC 35.1 RDW 14.9 H RDW Differential 48.7 H Plt Count 49 L* MPV 11.0 Immature Gran % (Auto) 0.000 Neut % (Auto) 83.8 H Lymph % (Auto) 8.8 L [place] % (Auto) 5.3 Eos % (Auto) 1.9 Baso % (Auto) 0.2 Absolute Neuts (auto) 5.4 Absolute Lymphs (auto) 0.57 L Total Counted Not Reportable Differential Comment SCANNED Diff Path Review Reviewed Platelet Estimate MKD DEC RBC Morphology NORM C+C Sodium 139 Potassium 3.5 Chloride 105 Carbon Dioxide 29.0 Anion Gap 5 BUN 9 Creatinine 0.76 Estim Creat Clear Calc 148.25 Est GFR (MDRD) Af Amer 144 Est GFR (MDRD) Non-Af 119 BUN/Creatinine Ratio 11.9 Glucose 102 Calcium 8.2 L Albumin 3.6 Medical Necessity - Tobacco Use Smoking Status: Former smoker Assessment/Plan All Active Problems Cellulitis (Acute) Intervertebral disc disorder with radiculopathy of lumbar region (Acute) Malnutrition (Resolved) Ulcer of left ankle (Resolved) Other intervertebral disc degeneration, lumbar region (Acute) Other intervertebral disc degeneration, lumbar region (Acute) Spinal stenosis of lumbar region with neurogenic claudication (Acute) Spinal stenosis of lumbar region with neurogenic claudication (Acute) Lumbar disc prolapse with compression radiculopathy (Acute) Lumbar disc disease with radiculopathy (Acute) Lumbar disc disease with radiculopathy (Acute) Intervertebral disc disorder with radiculopathy of lumbar region (Acute) Cellulitis of left ankle (Resolved) Impressions 1. cellulitis and DVT RLE - hx of MRSA cellulitis 2. 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 thrombocytopenia due to DEAN/cirrhosis 4. obesity 5. DVT R 6. 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 hx if DM II - diet controlled at present DC Ancef and start Vancomycin Check an ESR, CRP and HGBA1C Started on Eliquis loading dose Eucerin BID elevate the LE's to control edema Reinforced the need for compression stockings and moisturizing his legs every day to prevent venous stasis ulcers in the future. advised weight loss to help with swelling of the LE's and with back pain. consult with the implementation consultant for weight loss
[2019-01-17 14:10] VITALS: BP 129/64; PULSE 97; RESP 16; TEMP 37.6; O2SAT 98
--- NOTE | 2019-01-17 16:38 | PCM.RX.CS ---
Consult Pharmacy has been consulted to manage selected antiobiotic: Vancomycin Type of Consult: New start Suspected Infection: Skin/Soft tissue Prior Doses of Antibiotics Received/Current Regimen: None Labs: Sodium 139 mmol/L (136-145) 01/17/19 01:00 Potassium 3.5 mmol/L (3.5-5.1) 01/17/19 01:00 Chloride 105 mmol/L (98-107) 01/17/19 01:00 Carbon Dioxide 29.0 mmol/L (21.0-32.0) 01/17/19 01:00 Anion Gap 5 (5-15) 01/17/19 01:00 BUN 9 mg/dL (7-18) 01/17/19 01:00 Creatinine 0.76 mg/dL (0.70-1.30) 01/17/19 01:00 Est GFR (MDRD) Af Amer 144 mL/min (>60) 01/17/19 01:00 Est GFR (MDRD) Non-Af 119 mL/min (>60) 01/17/19 01:00 BUN/Creatinine Ratio 11.9 RATIO (10-20) 01/17/19 01:00 Glucose 102 mg/dL (74-106) 01/17/19 01:00 Weight used for dosin kg Estimated Creatinine Clearance: 148ml/min Goal Trough: 15-20 mcg/mL Pharmacy Plan for Drug Dosing: Vancomycin for cellulitis. Pt will receive a standard loading dose of 2grams (based on 15mg/kg) over 2 hours to start 01/17/19 at 1630. The initial dose recommendation is for Vancomycin 1500mg q8h to start 6 hours after the loading dose. The dose was started early due to the pt's bmi. An initial trough will be drawn 01/18/19 at 2130. Pharmacy Service will continue to monitor and adjust dosing as required. Follow-Up Labs: Trough Vancomycin - 01/18/19 at 2130
[2019-01-17 17:01] LABS: CRP < 2.90 mg/L (0.0-3.0)
[2019-01-17 17:29] LABS: Erythrocyte Sedimentation Rate < 1 mm/hr (0-15)
[2019-01-17] MEDS: DEXTROAMPHETAMINE/AMPHETAMINE 30 MG TABLET PO (17:52)
[2019-01-17 18:07] LABS: Hemoglobin A1c 4.8 % (4.2-6.3)
[2019-01-17 19:38] VITALS: BP 149/60; PULSE 94; RESP 18; TEMP 36.9; O2SAT 97
[2019-01-17] MEDS: Methocarbamol 500 MG Tablet PO ×2 (21:14)
[2019-01-17] MEDS: Morphine 2 MG/ML Syringe IV (22:53)
[2019-01-18 01:40] VITALS: BP 133/62; PULSE 86; RESP 18; TEMP 36.7; O2SAT 96
[2019-01-18] MEDS: oxyCODONE 5 MG Tablet PO ×2 (04:01→10:47)
[2019-01-18 06:00] LABS: Absolute Lymphocyte Count 0.83 X10^3/ul (0.83-4.51); Absolute Neutrophil Count 4.1 X10^3/uL (2.0-7.7); Basophil# 0.03 X10^3/uL; Basophil% 0.5 % (0-1); Eosinophil# 0.21 X10^3/uL; Eosinophils% 3.6 % (0-5); Hematocrit 35.9 % (40-54); Hemoglobin 12.4 g/dl (13.0-16.5); Lymphocyte # 0.83 X10^3/ul (4.0); Lymphocyte % 14.3 % (19-41); Mean Corp Hgb Conc 34.5 g/gl (32-36); Mean Corpuscular Hgb 31.1 pg (27.0-32.0); Mean Platelet Vol. 11.8 fl (6.2-12.0); Monocyte# 0.66 X10^3/uL; Monocyte% 11.3 % (0-10); Neutrophil # 4.08 X10^3/uL (2.7-7.7); Neutrophil % 70.1 % (47-70); RBC Distribution Width CV 15.2 % (11.6-14.6); RBC Distribution Width SD 49.6 fl (35.1-43.9); Red Blood Count 3.99 M/mm3 (4.6-6.2); White Blood Count 5.8 K/mm3 (4.4-11.0)
[2019-01-18 06:04] LABS: Differential Indicated SCAN CRITERIA MET; POSITIVE COUNT YES; POSITIVE DIFFERENTIAL NO; POSITIVE MORPHOLOGY NO; Platelet Count 45 K/mm3 (150-450)
[2019-01-18 06:05] LABS: ALB/GLOB Ratio 0.9 RATIO (0.9-2.4); AST(SGOT) 29 U/L (15-37); Alanine Aminotransfer ALT/SGPT 53 U/L (16-61); Albumin, Serum 2.7 g/dL (3.2-5.0); Alkaline Phosphatase 60 U/L (45-117); Anion Gap 2 (5-15); BUN 11 mg/dL (7-18); BUN/Creat Ratio 16.2 RATIO (10-20); Calcium,Total 7.9 mg/dL (8.5-10.1); Chloride 113 mmol/L (98-107); Creatinine, Serum 0.68 mg/dL (0.70-1.30); EST Glomerular Filtration Rate 134 mL/min (>60); Est Glom Filt Rate - Afr Amer 162 mL/min (>60); Estimated Creatinine Clearance 165.69 ml/min; Globulin 2.9 g/dL (2.2-4.2); Glucose 128 mg/dL (74-106); Magnesium 2.2 mg/dL (1.6-2.6); Phosphorus 2.5 mg/dL (2.5-4.9); Potassium 4.2 mmol/L (3.5-5.1); Protein, Total 5.6 g/dL (6.4-8.2); Sodium Level 141 mmol/L (136-145)
[2019-01-18 06:34] LABS: Differential Comment SCAN; Platelet Estimate MKD DEC (ADEQ)
[2019-01-18 06:35] LABS: Platelet Morphology LARGE
[2019-01-18 08:30] VITALS: BP 132/67; PULSE 77; RESP 16; TEMP 36.9; O2SAT 98
[2019-01-18] MEDS: Gabapentin 300 MG Capsule PO ×2 (08:37→16:39)
[2019-01-18] MEDS: DEXTROAMPHETAMINE/AMPHETAMINE 30 MG TABLET PO ×2 (08:37→16:39)
[2019-01-18] MEDS: APIXABAN 5 MG TABLET 10 MG PO ×2 (10:30→23:01)
[2019-01-18 12:34] LABS: Pathologist Review Reviewed
--- NOTE | 2019-01-18 12:34 | CT_ITS ---
We are attempting to reach Ping Gaspar to discuss findings. An addendum with communication details will be sent when the communication is complete. STUDY: CTA CHEST REASON FOR EXAM: Male, 43 years old. Short of breath, history of DVT RADIATION DOSAGE (If Supplied By Facility): CTDIvol = ( 20.45 ) mGy, DLP = ( 2733.52 ) mGycm TECHNIQUE: The examination was performed with the intravenous administration of 100 IV Isovue 370. Post-processing of the angiographic images was performed, with multiplanar reformation and 3D reconstruction. Individualized dose optimization techniques were used for this CT. COMPARISON: None. FINDINGS: There are no filling defects within the right and left main pulmonary arteries. Evaluation of more distal pulmonary is nondiagnostic due to significant respiratory motion and timing of the contrast bolus. There is no aneurysmal dilatation of the thoracic aorta. Evaluation for dissection within the descending thoracic aorta is nondiagnostic due to respiratory motion. No dissection is visualized within the descending thoracic aorta. Evaluation for small pulmonary nodules is also nondiagnostic due to significant respiratory motion. There is mild cardiomegaly. There are mild multilevel Schmorl's nodes thoracic spine with small osteophytes. There is splenomegaly. There are upper abdominal varices. There is nodularity to the surface of the liver. CT/CTA Chest W/WO Contrast IMPRESSION: Nondiagnostic exam to exclude pulmonary emboli. There are no pulmonary emboli within the main pulmonary arteries. Evaluation of the more distal pulmonary arteries including segmental and subsegmental pulmonary arteries is nondiagnostic due to significant respiratory motion and timing of the contrast bolus. A repeat exam or VQ scan could be performed to further evaluate. Cardiomegaly Nondiagnostic exam to evaluate for small pulmonary nodules due to respiratory motion Evidence for hepatic cirrhosis, portal hypertension, splenomegaly and upper abdominal varices Electronically Signed: Kyle Holder, at 16:24 EDT Tel , Service support ,
--- NOTE | 2019-01-18 12:36 | CT_ITS ---
HISTORY: SOB, DVT RLE, CIRROHSIS TECHNIQUE: Helically acquired images were obtained of the abdomen and pelvis following 100 cc Isovue-300 IV contrast. Oral contrast was administered. A radiation dose optimization technique was used for this scan. COMPARISON: 01/19/18 CT abdomen and pelvis. FINDINGS: # of images incl. paperwork: 487 Cirrhotic liver, only mildly nodular, similar to prior. Moderate to severe splenomegaly unchanged. Again demonstrated is cavernous transformation of the portal vein with very large varicosities, with a dilated patent splenic vein with adjacent varicosities, and very large varicosities extending inferiorly adjacent to the left renal vein, and in the retroperitoneum left greater than right common iliac veins. The IVC is dilated secondary to receiving blood from these varicosities. No ascites, no free air. No obstruction or inflammation of the bowel. Normal appendix. Status post fundoplication. No hiatal hernia. Pancreas, adrenal glands, kidneys, urinary bladder and prostate unremarkable. Lung bases clear. No acute osseous abnormality. CT/Abdomen/Pelvis WITH Contrast IMPRESSION: Little change compared to the previous study. Cirrhotic liver with cavernous transformation of the portal vein and very large varicosities particularly in the retroperitoneum adjacent to the common iliac vessels. No ascites. Individualized dose optimization techniques were used for this CT. at 0154 Reported and signed by: Tommy Hernandes MD Electronically Signed: Tommy Hernandes, at 1:53 EDT Tel , Service support ,
--- NOTE | 2019-01-18 12:38 | PCM.PROGNOTE ---
Patient Problems: Active and Suspected Problems Cellulitis (Acute) Subjective: Vancomycin day #2 All events of the past 24 hours have been reviewed. Vital signs are stable. Pulse ox is 96-98% on room air Hemoglobin today is 12.4, down from 13.6 at admission. White blood cell count remains normal at 5.8 and the differential is unremarkable today. Platelets are stable at 45,000. BMP is unremarkable. HGBA1c was 4.8. Total bili is 1.7 but the AST, ALT and alkaline phosphatase are all normal. I reviewed an old CT the abdomen and pelvis which was done in January 2018 and it showed a cirrhotic liver with portal hypertension. There is moderate splenomegaly and large varicose veins were seen in the retroperitoneum. No ascites. ESR is < 1 and the CRP is normal. He continues to complain of pain in his right leg and it remains swollen. There is redness with mild warmth to touch. He has erythema of the right medial thigh and it is warm to touch also. A hard vein is palpable and very tender to palpation. He denies shortness of breath but has not been up and ambulating. He denies chest pain. He has R groin pain - Physical Exam General: Alert, Oriented x3, Cooperative, No apparent distress HEENT: Atraumatic Lungs: Clear to auscultation Cardiovascular: Regular rate, Regular Rhythm, Normal S1, Normal S2, No Gallop Abdomen: Bowel Sounds Present, Soft, Non-Distended, Obese, Tender - with palpation of the right groin......has a few enlarged tender nodes Extremities: Edema - LLE and the hands Skin: No rashes, - - patchy redness and warmth to touch of the R medial thigh and the calf. the skin over the distal LE looks much better after Eucerin and there is no cracking of the skin. Lymphatic: Inguinal Adenopathy Neurological: Cranial nerves II-XII grossly intact, Neuro grossly intact Vital Signs Temp Pulse Resp BP Pulse Ox 98.4 F 77 16 132/67 H 98 01/18/19 08:30 01/18/19 08:30 01/18/19 08:30 01/18/19 08:30 01/18/19 08:30 Oxygen Delivery Method Room Air Weight: 311 lb 15.265 oz Body Mass Index (BMI) 38.9 Finger Stick Blood Glucose 106 Intake and Output for Last 24 Hours 01/16/19 01/17/19 01/18/19 23:59 23:59 23:59 Intake Total 368 / 368 2061 Output Total 825 / 825 Balance -457 / -457 2061 Laboratory Tests Past 24 Hrs 01/17/19 01/17/19 01/17/19 01:00 01:00 01:00 WBC RBC Hgb Hct MCV MCH MCHC RDW RDW Differential Plt Count MPV Immature Gran % (Auto) Neut % (Auto) Lymph % (Auto) [place] % (Auto) Eos % (Auto) Baso % (Auto) Absolute Neuts (auto) Absolute Lymphs (auto) Total Counted Differential Comment Diff Path Review Platelet Estimate Plt Morphology Comment ESR < 1 Sodium Potassium Chloride Carbon Dioxide Anion Gap BUN Creatinine Estim Creat Clear Calc Est GFR (MDRD) Af Amer Est GFR (MDRD) Non-Af BUN/Creatinine Ratio Glucose Hemoglobin A1c 4.8 Calcium Phosphorus Magnesium Total Bilirubin AST ALT Alkaline Phosphatase C-React Prot Ext Range < 2.90 Total Protein Albumin Globulin Albumin/Globulin Ratio 01/18/19 01/18/19 05:32 05:32 WBC 5.8 RBC 3.99 L Hgb 12.4 L Hct 35.9 L MCV 90.0 MCH 31.1 MCHC 34.5 RDW 15.2 H RDW Differential 49.6 H Plt Count 45 L* MPV 11.8 Immature Gran % (Auto) 0.200 Neut % (Auto) 70.1 H Lymph % (Auto) 14.3 L [place] % (Auto) 11.3 H Eos % (Auto) 3.6 Baso % (Auto) 0.5 Absolute Neuts (auto) 4.1 Absolute Lymphs (auto) 0.83 Total Counted Not Reportable Differential Comment SCAN Diff Path Review Reviewed Platelet Estimate MKD DEC Plt Morphology Comment LARGE ESR Sodium 141 Potassium 4.2 Chloride 113 H Carbon Dioxide 26.0 Anion Gap 2 L BUN 11 Creatinine 0.68 L Estim Creat Clear Calc 165.69 Est GFR (MDRD) Af Amer 162 Est GFR (MDRD) Non-Af 134 BUN/Creatinine Ratio 16.2 Glucose 128 H Hemoglobin A1c Calcium 7.9 L Phosphorus 2.5 Magnesium 2.2 Total Bilirubin 1.70 H AST 29 ALT 53 Alkaline Phosphatase 60 C-React Prot Ext Range Total Protein 5.6 L Albumin 2.7 L Globulin 2.9 Albumin/Globulin Ratio 0.9 Medical Necessity - Tobacco Use Smoking Status: Former smoker Assessment/Plan All Active Problems Cellulitis (Acute) Intervertebral disc disorder with radiculopathy of lumbar region (Acute) Malnutrition (Resolved) Ulcer of left ankle (Resolved) Other intervertebral disc degeneration, lumbar region (Acute) Other intervertebral disc degeneration, lumbar region (Acute) Spinal stenosis of lumbar region with neurogenic claudication (Acute) Spinal stenosis of lumbar region with neurogenic claudication (Acute) Lumbar disc prolapse with compression radiculopathy (Acute) Lumbar disc disease with radiculopathy (Acute) Lumbar disc disease with radiculopathy (Acute) Intervertebral disc disorder with radiculopathy of lumbar region (Acute) Cellulitis of left ankle (Resolved) Impressions 1. DVT of the RLE - in a pt with cirrhosis, thrombocytopenia and mildly prolonged PT.......may have a hypercoagulable disorder or occult malignancy 2. chronic thrombocytopenia - stable 3. possible cellulitis but, I feel the erythema and warmth are more likely due to VTE since he is afebrile and the ESR is < 1 and the CRP < 2.9 4. DEAN with cirrhosis 5. obesity Continue vancomycin - I do not think he has cellulitis but, will await the results of the blood cultures CTA of the chest CT scan of the abdomen and pelvis with and without contrast Continue Eliquis ? why he has VTE.....his PT in Jul was 16.5 due to auto-anticoagulation from cirrhosis. Increase pain medication I am very concerned about anticoagulation in a pt with cirrhosis and retroperitoneal varices. Why does he have a DVT? his PT was mildly elevated last fall and his PLT's are chronically low. Hypercoagulable disorder? 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 His GI doc is Dr. Corley. I called the office to discuss anticoagulation and get his recommendations but, was placed on hold for > 30 minutes and had to hang up and go see my patients. There was no option to leave a message. Will call again in the AM. If I am unable to reach his doctor may try to transfer to another facility where GI is available. He may be a candidate for an IVC filter. Code Visit Inpatient E&M: 12556 Subs Hosp L3
[2019-01-18 14:16] VITALS: BP 138/75; PULSE 98; RESP 16; TEMP 37; O2SAT 98
[2019-01-18] MEDS: oxyCODONE 5 MG Tablet 10 MG PO ×3 (15:09→23:35)
[2019-01-18 20:32] VITALS: BP 144/53; PULSE 87; RESP 18; TEMP 37.2; O2SAT 100
[2019-01-18] MEDS: Morphine 4 MG/ML Syringe IV (20:42)
[2019-01-18] MEDS: 0.9% NaCl Peripheral Flush Adult/Peds IV ×3 (20:42→23:37)
[2019-01-18 23:05] LABS: Vancomycin, Trough Level 10.1 ug/mL (5.0-15.0)
--- NOTE | 2019-01-19 00:03 | PCM.RX.CS ---
Consult Pharmacy has been consulted to manage selected antiobiotic: Vancomycin Type of Consult: Follow-up Suspected Infection: Skin/Soft tissue Prior Doses of Antibiotics Received/Current Regimen: Medications Vancomycin HCl 2,000 mg/ (Sodium Chloride) 540 mls @ 250 mls/hr IV Q8H OPAL Discontinued Medications Vancomycin HCl 1,500 mg/ (Sodium Chloride) 530 mls @ 250 mls/hr IV Q8H OPAL Last Admin: 01/18/19 23:01 Dose: 250 mls/hr Labs: Sodium 141 mmol/L (136-145) 01/18/19 05:32 Potassium 4.2 mmol/L (3.5-5.1) 01/18/19 05:32 Chloride 113 mmol/L (98-107) H 01/18/19 05:32 Carbon Dioxide 26.0 mmol/L (21.0-32.0) 01/18/19 05:32 Anion Gap 2 (5-15) L 01/18/19 05:32 BUN 11 mg/dL (7-18) 01/18/19 05:32 Creatinine 0.68 mg/dL (0.70-1.30) L 01/18/19 05:32 Est GFR (MDRD) Af Amer 162 mL/min (>60) 01/18/19 05:32 Est GFR (MDRD) Non-Af 134 mL/min (>60) 01/18/19 05:32 BUN/Creatinine Ratio 16.2 RATIO (10-20) 01/18/19 05:32 Glucose 128 mg/dL (74-106) H 01/18/19 05:32 Vancomycin Trough 10.1 ug/mL (5.0-15.0) 01/18/19 22:00 Weight used for dosin.3 kg Estimated Creatinine Clearance: 166 Goal Trough: 15-20 mcg/mL Pharmacy Plan for Drug Dosing: Trough level of 10.1, below the target range of 15-20. Dose was increased to 2000mg q8h. Will re-draw trough before fourth dose at new strength. Pharmacy Service will continue to monitor and adjust dosing as required. Follow-Up Labs: Trough Vancomycin Labs to be done on [date and time ordered]: 01/20/19 @4229
[2019-01-19 02:34] VITALS: BP 142/61; PULSE 74; RESP 16; TEMP 37; O2SAT 95
[2019-01-19] MEDS: oxyCODONE 5 MG Tablet 10 MG PO ×3 (05:02→14:18)
[2019-01-19 06:36] LABS: Hematocrit 37.3 % (40-54); Hemoglobin 12.9 g/dl (13.0-16.5); Mean Corp Hgb Conc 34.6 g/gl (32-36); Mean Corpuscular Hgb 30.8 pg (27.0-32.0); Mean Platelet Vol. 11.1 fl (6.2-12.0); RBC Distribution Width CV 15.2 % (11.6-14.6); RBC Distribution Width SD 49.7 fl (35.1-43.9); Red Blood Count 4.19 M/mm3 (4.6-6.2); White Blood Count 6.1 K/mm3 (4.4-11.0)
[2019-01-19 06:40] LABS: Platelet Count 49 K/mm3 (150-450); Scan Indicated on CBC? Y/N YES- FLAGS NOTED
[2019-01-19 07:07] LABS: Differential Comment SCAN
[2019-01-19 07:30] VITALS: O2SAT 97
[2019-01-19 07:50] VITALS: BP 128/70; PULSE 78; RESP 16; TEMP 36.8; O2SAT 100
[2019-01-19] MEDS: Morphine 4 MG/ML Syringe IV ×2 (08:24→14:27)
[2019-01-19] MEDS: Gabapentin 300 MG Capsule PO ×2 (08:37→17:09)
[2019-01-19] MEDS: APIXABAN 5 MG TABLET 10 MG PO (08:37)
[2019-01-19] MEDS: DEXTROAMPHETAMINE/AMPHETAMINE 30 MG TABLET PO ×2 (08:40→17:09)
--- NOTE | 2019-01-19 12:05 | CASEMGMT ---
Tertiary facilities in-network with patient's insurance: [facility], [facility], , [facility], [facility], [facility].
[2019-01-19 12:19] LABS: Pathologist Review Reviewed
[2019-01-19 13:45] VITALS: BP 135/59; PULSE 88; RESP 16; TEMP 36.4; O2SAT 100
--- NOTE | 2019-01-19 14:54 | NURSING ---
student nurses charting used for educational and learning purposes. reviewed by eduin
[2019-01-19 17:17] LABS: International Normalized Ratio 1.4; Partial Thromboplast Time 41.2 Seconds (24.1-36.2); Prothrombin Time (Protime)PT. 17.2 SECONDS (11.7-14.9)
[2019-01-19] MEDS: HEPARIN/D5w 25,000 UNITS 25,000 UNITS/250 ML IV.SOLN. 18 UNITS IV (17:42)
[2019-01-19] MEDS: oxyCODONE 5 MG Tablet 15 MG PO ×2 (19:11→23:50)
--- NOTE | 2019-01-19 19:31 | PN_ITS ---
Patient Problems: Active and Suspected Problems Cellulitis (Acute) Subjective: Day #3 vancomycin All events the past 24 hours been reviewed. He has been afebrile since admission. Vital signs are stable He is 95-100% saturated on room air. Platelet count is stable. Hemoglobin is stable. He complains that his back pain is not adequately relieved with OxyIR 10 mg every 4 hours as needed. The pain in the right inner thigh is improved and the redness has nearly resolved. He denies nausea. No bright red blood per rectum. Denies chest pain and also denies shortness of breath. No abdominal pain. No Nausea. - Physical Exam General: Alert, Oriented x3, Cooperative, Well developed, Well nourished HEENT: Normocephalic Oral: Moist Mucosa Neck: Supple, No JVD, Trachea Midline Lungs: Clear to auscultation Cardiovascular: Regular rate, Regular Rhythm, Normal S1, Normal S2, No Gallop Abdomen: Bowel Sounds Present, Soft, Non Tender, Non-Distended, Obese Extremities: - - The RLE is swollen and red to the knee. There are no openings in the skin. It is tender to palpate and has increased warmth to touch. Skin: No breakdown Musculoskeletal: No Muscle Wasting Neurological: Cranial nerves II-XII grossly intact, Neuro grossly intact Psych/Mental Status: Normal Affect, Appropriate Vital Signs Temp Pulse Resp BP Pulse Ox 97.6 F L 88 16 135/59 H 100 01/19/19 13:45 01/19/19 13:45 01/19/19 13:45 01/19/19 13:45 01/19/19 13:45 Oxygen Delivery Method Room Air Weight: 311 lb 4.683 oz Body Mass Index (BMI) 38.9 Finger Stick Blood Glucose 106 Intake and Output for Last 24 Hours 01/17/19 01/18/19 01/19/19 23:59 23:59 23:59 Intake Total 368 / 368 4783 / 4783 2706 / 2706 Output Total 825 / 825 2450 / 2450 4600 / 4600 Balance -457 / -457 2333 / 2333 -1894 / -1894 Microbiology Past 72 Hours 01/17/19 01:20 Blood Culture - Preliminary Blood Culture (Wb) #2 - Anticubital Right No growth in 48 hours. 01/17/19 01:00 Blood Culture - Preliminary Blood Culture (Wb) #2 - Anticubital Left No growth in 48 hours. Laboratory Tests Past 24 Hrs 01/18/19 01/19/19 01/19/19 22:00 06:05 16:54 WBC 6.1 RBC 4.19 L Hgb 12.9 L Hct 37.3 L MCV 89.0 MCH 30.8 MCHC 34.6 RDW 15.2 H RDW Differential 49.7 H Plt Count 49 L* MPV 11.1 Differential Comment SCAN Diff Path Review Reviewed PT 17.2 H INR 1.4 APTT 41.2 H Vancomycin Trough 10.1 Medical Necessity - Tobacco Use Smoking Status: Former smoker Assessment/Plan All Active Problems Cellulitis (Acute) Intervertebral disc disorder with radiculopathy of lumbar region (Acute) Malnutrition (Resolved) Ulcer of left ankle (Resolved) Other intervertebral disc degeneration, lumbar region (Acute) Other intervertebral disc degeneration, lumbar region (Acute) Spinal stenosis of lumbar region with neurogenic claudication (Acute) Spinal stenosis of lumbar region with neurogenic claudication (Acute) Lumbar disc prolapse with compression radiculopathy (Acute) Lumbar disc disease with radiculopathy (Acute) Lumbar disc disease with radiculopathy (Acute) Intervertebral disc disorder with radiculopathy of lumbar region (Acute) Cellulitis of left ankle (Resolved) Impressions 1. DVT of the RLE - in a pt with cirrhosis, thrombocytopenia and mildly prolonged PT.......may have a hypercoagulable disorder or occult malignancy 2. chronic thrombocytopenia - stable 3. possible cellulitis but, I feel the erythema and warmth are more likely due to VTE since he is afebrile and the ESR is < 1 and the CRP < 2.9 4. DEAN with cirrhosis 5. 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 Corley, to discuss the best anticoagulant in this pt and whether he would benefit from a IVC filter Code Visit Inpatient E&M: [id number] Subs Hosp L2
[2019-01-19 21:06] VITALS: BP 147/84; PULSE 93; RESP 18; TEMP 36.8
[2019-01-19] MEDS: Methocarbamol 500 MG Tablet PO (21:17)
[2019-01-19] MEDS: Morphine 2 MG/ML Syringe IV (21:56)
[2019-01-19 23:40] VITALS: BP 135/71; PULSE 91; RESP 18; TEMP 36.8; O2SAT 94
[2019-01-19 23:51] LABS: Partial Thromboplast Time 66.9 Seconds (24.1-36.2)
[2019-01-20 02:24] VITALS: BP 124/58; PULSE 79; RESP 18; TEMP 36.7; O2SAT 96
[2019-01-20] MEDS: oxyCODONE 5 MG Tablet 15 MG PO ×5 (05:01→21:40)
--- NOTE | 2019-01-20 05:55 | VDLE_ITS ---
Reason For Study: DVT RIGHT LEFT GSV is normal. CFV is compressible, spontaneous, phasic, CFV is compressible, spontaneous, phasic, competent, and demonstrates normal competent and demonstrates normal augmentation. augmentation. FV is compressible, spontaneous, phasic, competent and demonstrates normal augmentation. POP V is compressible, spontaneous, phasic, competent and demonstrates normal augmentation. T/P Trunk is compressible. PTV is compressible. RT PerV is compressible. Soleus Vein is dilated and noncompressible. No chage from previous study done 01/17/19. Procedure Exam performed portable in patient room. The exam was diagnostic. A preliminary report was called and/or faxed to [facility]. Interpretation Summary Deep venous thrombosis right soleus vein with no change from 01/17/19. Patent and compressible right great saphenous vein Normal flow patterns left common femoral vein Ordering Physician: Ping Gaspar Performed By: Austen Begum RVT
[2019-01-20 06:09] LABS: Absolute Lymphocyte Count 1.15 X10^3/ul (0.83-4.51); Basophil# 0.02 X10^3/uL; Basophil% 0.4 % (0-1); Eosinophil# 0.39 X10^3/uL; Eosinophils% 7.5 % (0-5); Hematocrit 36.7 % (40-54); Hemoglobin 12.7 g/dl (13.0-16.5); Lymphocyte # 1.15 X10^3/ul (4.0); Mean Corp Hgb Conc 34.6 g/gl (32-36); Mean Corpuscular Hgb 30.8 pg (27.0-32.0); Mean Corpuscular Volume 89.1 fL (80-94); Mean Platelet Vol. 11.7 fl (6.2-12.0); Monocyte# 0.64 X10^3/uL; Monocyte% 12.3 % (0-10); Neutrophil # 3.02 X10^3/uL (2.7-7.7); Neutrophil % 57.8 % (47-70); Platelet Count 66 K/mm3 (150-450); RBC Distribution Width CV 15.1 % (11.6-14.6); RBC Distribution Width SD 48.9 fl (35.1-43.9); Red Blood Count 4.12 M/mm3 (4.6-6.2); White Blood Count 5.2 K/mm3 (4.4-11.0)
[2019-01-20 06:16] LABS: POSITIVE COUNT NO; POSITIVE DIFFERENTIAL NO; POSITIVE MORPHOLOGY NO
[2019-01-20 06:26] LABS: International Normalized Ratio 1.3; Prothrombin Time (Protime)PT. 16.4 SECONDS (11.7-14.9)
[2019-01-20 06:32] LABS: Partial Thromboplast Time 80.1 Seconds (24.1-36.2)
[2019-01-20] MEDS: HEPARIN/D5w 25,000 UNITS 25,000 UNITS/250 ML IV.SOLN. 17 UNITS IV (06:47)
[2019-01-20 06:55] LABS: Vancomycin, Trough Level 15.5 ug/mL (5.0-15.0)
[2019-01-20 07:35] VITALS: O2SAT 93
--- NOTE | 2019-01-20 07:50 | PCM.RX.CS ---
Consult Pharmacy has been consulted to manage selected antiobiotic: Vancomycin Type of Consult: Follow-up Suspected Infection: Skin/Soft tissue Prior Doses of Antibiotics Received/Current Regimen: Vancomycin 2000mg IV q8h x3 doses. Labs: Sodium 141 mmol/L (136-145) 01/18/19 05:32 Potassium 4.2 mmol/L (3.5-5.1) 01/18/19 05:32 Chloride 113 mmol/L (98-107) H 01/18/19 05:32 Carbon Dioxide 26.0 mmol/L (21.0-32.0) 01/18/19 05:32 Anion Gap 2 (5-15) L 01/18/19 05:32 BUN 11 mg/dL (7-18) 01/18/19 05:32 Creatinine 0.68 mg/dL (0.70-1.30) L 01/18/19 05:32 Est GFR (MDRD) Af Amer 162 mL/min (>60) 01/18/19 05:32 Est GFR (MDRD) Non-Af 134 mL/min (>60) 01/18/19 05:32 BUN/Creatinine Ratio 16.2 RATIO (10-20) 01/18/19 05:32 Glucose 128 mg/dL (74-106) H 01/18/19 05:32 Vancomycin Trough 15.5 ug/mL (5.0-15.0) H 01/20/19 05:58 Microbiology: Microbiology 01/17/19 01:20 Blood Culture (Wb) #2 - Anticubital Right Blood Culture - Preliminary No growth in 48 hours. 01/17/19 01:00 Blood Culture (Wb) #2 - Anticubital Left Blood Culture - Preliminary No growth in 48 hours. Weight used for dosin kg Goal Trough: 15-20 mcg/mL Pharmacy Plan for Drug Dosin43 year old male with a bmi of 38.7, admitted for MRSA+ cellulitis. Goal trough for the pt is 15-20. Recent dosing of Vancomycin 1500mg IV q8h resulted in a trough of 10.1. Dose was increased to 2grams q8h and trough drawn after 3 doses. New trough level resulted in a level of 15.5. Recommend keeping the pt on the same dose and interval of 2grams q8h and drawing another trough in 4 days (01/24/19) since he is at goal. Pharmacy Service will continue to monitor and adjust dosing as required. Follow-Up Labs: Trough Vancomycin - 01/24/19 at 0630
--- NOTE | 2019-01-20 08:03 | PN_ITS ---
Subjective: Day #4 vancomycin All events of the past 24 hours of been reviewed. Afebrile. Vital signs are stable. He is 93-96% saturated on room air. All lab was personally reviewed. White blood cell count is 5.2 with a normal differential. Eosinophils are 7.5 today. EDMUND globin is 12.7 and stable. Platelet count is actually improving and is 66,000 today. PT is 16.4 with an INR of 1.3 and his PTT is 80. Vancomycin trough is 15.5. Eliquis was discontinued on 01/19/2019 and the patient was started on heparin and Coumadin. 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 Corley and he recommended Coumadin since it is reversible. He related that the pt has no GI varices. He continues to complain of severe back pain and also pain in his right leg. Objective: General: Alert, Oriented x3, Cooperative, No apparent distress HEENT: Atraumatic Lungs: Clear to auscultation Cardiovascular: Regular rate, Regular Rhythm, Normal S1, Normal S2, No Gallop Abdomen: Bowel Sounds Present, Soft, Non-Distended, Obese, Tender - with palpation of the right groin......has a few enlarged tender nodes Extremities: Edema - LLE and the hands Skin: No rashes, - - patchy redness and warmth to touch of the R medial thigh and the calf. The skin over the distal LE looks much better after Eucerin and there is no cracking of the skin. Lymphatic: Inguinal Adenopathy Neurological: Cranial nerves II-XII grossly intact, Neuro grossly intact - Physical Exam Vital Signs Temp Pulse Resp BP Pulse Ox 98.1 F 79 18 124/58 H 93 01/20/19 02:24 01/20/19 02:24 01/20/19 02:24 01/20/19 02:24 01/20/19 07:35 Oxygen Delivery Method Room Air Weight: 309 lb 8 oz Body Mass Index (BMI) 38.9 Finger Stick Blood Glucose 106 Intake and Output for Last 24 Hours 01/18/19 01/19/19 01/20/19 23:59 23:59 23:59 Intake Total 4783 / 4783 3622 / 3622 120 / 120 Output Total 2450 / 2450 5775 / 5775 1000 / 1000 Balance 2333 / 2333 -2153 / -2153 -880 / -880 Microbiology Past 72 Hours 01/17/19 01:20 Blood Culture - Preliminary Blood Culture (Wb) #2 - Anticubital Right No growth in 48 hours. 01/17/19 01:00 Blood Culture - Preliminary Blood Culture (Wb) #2 - Anticubital Left No growth in 48 hours. Laboratory Tests Past 24 Hrs 01/19/19 01/19/19 01/19/19 06:05 16:54 23:30 WBC RBC Hgb Hct MCV MCH MCHC RDW RDW Differential Plt Count MPV Immature Gran % (Auto) Neut % (Auto) Lymph % (Auto) [place] % (Auto) Eos % (Auto) Baso % (Auto) Absolute Neuts (auto) Absolute Lymphs (auto) Total Counted Diff Path Review Reviewed PT 17.2 H INR 1.4 APTT 41.2 H 66.9 H Vancomycin Trough 01/20/19 01/20/19 01/20/19 05:58 05:58 05:58 WBC 5.2 RBC 4.12 L Hgb 12.7 L Hct 36.7 L MCV 89.1 MCH 30.8 MCHC 34.6 RDW 15.1 H RDW Differential 48.9 H Plt Count 66 L MPV 11.7 Immature Gran % (Auto) 0.000 Neut % (Auto) 57.8 Lymph % (Auto) 22.0 [place] % (Auto) 12.3 H Eos % (Auto) 7.5 H Baso % (Auto) 0.4 Absolute Neuts (auto) 3.0 Absolute Lymphs (auto) 1.15 Total Counted Not Reportable Diff Path Review PT 16.4 H INR 1.3 APTT 80.1 H Vancomycin Trough 15.5 H Medical Necessity - Tobacco Use Smoking Status: Former smoker Assessment/Plan All Active Problems Cellulitis (Acute) Intervertebral disc disorder with radiculopathy of lumbar region (Acute) DVT (deep venous thrombosis) (Acute) Malnutrition (Resolved) Ulcer of left ankle (Resolved) Intervertebral disc disorder with radiculopathy of lumbar region (Acute) Cellulitis of left ankle (Resolved) Impressions 1. DVT of the RLE - in a pt with cirrhosis, thrombocytopenia and mildly prolonged PT.......may have a hypercoagulable disorder or occult malignancy 2. chronic thrombocytopenia - stable 3. possible cellulitis but, I feel the erythema and warmth are more likely due to VTE since he is afebrile and the ESR is < 1 and the CRP < 2.9 4. DEAN with cirrhosis 5. obesity 6. 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 Corley, to discuss the best anticoagulant in this pt and whether he would benefit from a IVC filter ESR is less than 1 and CRP is less than 2.9 Code Visit Inpatient E&M: 25093 Subs Hosp L2
[2019-01-20 08:25] VITALS: BP 139/78; PULSE 81; RESP 16; TEMP 36.6; O2SAT 99
[2019-01-20] MEDS: Gabapentin 300 MG Capsule PO ×2 (08:41→17:21)
[2019-01-20] MEDS: DEXTROAMPHETAMINE/AMPHETAMINE 30 MG TABLET PO ×2 (08:45→17:19)
[2019-01-20] MEDS: Heparin Injection (Vial) 5,000 UNIT/ML VIAL IV (13:50)
[2019-01-20 14:00] VITALS: BP 132/72; PULSE 92; RESP 16; TEMP 36.8; O2SAT 97
[2019-01-20] MEDS: Morphine 4 MG/ML Syringe IV (14:00)
[2019-01-20 14:51] VITALS: BP 132/72; PULSE 92; RESP 16; TEMP 36.8; O2SAT 97
[2019-01-20 20:24] LABS: Partial Thromboplast Time 70.6 Seconds (24.1-36.2)
[2019-01-20 20:53] VITALS: BP 139/57; PULSE 94; RESP 18; TEMP 36.9; O2SAT 97
[2019-01-20] MEDS: Methocarbamol 500 MG Tablet PO (21:46)
[2019-01-20] MEDS: HEPARIN/D5w 25,000 UNITS 25,000 UNITS/250 ML IV.SOLN. 18 UNITS IV (22:32)
[2019-01-21 02:23] VITALS: BP 124/51; PULSE 82; RESP 16; TEMP 36.9; O2SAT 96
[2019-01-21] MEDS: oxyCODONE 5 MG Tablet 15 MG PO ×5 (02:29→20:36)
[2019-01-21 03:00] LABS: International Normalized Ratio 1.2; Prothrombin Time (Protime)PT. 15.2 SECONDS (11.7-14.9)
[2019-01-21 03:18] LABS: Partial Thromboplast Time 73.6 Seconds (24.1-36.2)
[2019-01-21 05:14] LABS: Absolute Lymphocyte Count 1.24 X10^3/ul (0.83-4.51); Absolute Neutrophil Count 2.5 X10^3/uL (2.0-7.7); Basophil# 0.04 X10^3/uL; Basophil% 0.8 % (0-1); Eosinophil# 0.36 X10^3/uL; Eosinophils% 7.6 % (0-5); Hematocrit 37.3 % (40-54); Hemoglobin 13.1 g/dl (13.0-16.5); Lymphocyte # 1.24 X10^3/ul (4.0); Lymphocyte % 26.2 % (19-41); Mean Corp Hgb Conc 35.1 g/gl (32-36); Mean Corpuscular Hgb 31.3 pg (27.0-32.0); Monocyte# 0.59 X10^3/uL; Monocyte% 12.4 % (0-10); Neutrophil # 2.51 X10^3/uL (2.7-7.7); Platelet Count 69 K/mm3 (150-450); RBC Distribution Width CV 15.1 % (11.6-14.6); RBC Distribution Width SD 49.3 fl (35.1-43.9); Red Blood Count 4.19 M/mm3 (4.6-6.2); White Blood Count 4.7 K/mm3 (4.4-11.0)
[2019-01-21 05:22] LABS: POSITIVE COUNT NO; POSITIVE DIFFERENTIAL NO; POSITIVE MORPHOLOGY NO
[2019-01-21 08:00] VITALS: PULSE 80
[2019-01-21] MEDS: Gabapentin 300 MG Capsule PO ×2 (09:25→17:22)
[2019-01-21] MEDS: Morphine 4 MG/ML Syringe IV ×2 (09:30→18:39)
[2019-01-21] MEDS: DEXTROAMPHETAMINE/AMPHETAMINE 30 MG TABLET PO ×2 (09:32→17:22)
--- NOTE | 2019-01-21 10:19 | NURSING ---
This AM~0242, patient's PTT was within goal range. This makes 2nd consecutive PTT within goal range.
--- NOTE | 2019-01-21 12:54 | PN_ITS ---
Subjective: Day #5 antibiotics Afebrile, stable vital signs All labs personally reviewed. White blood cell count today is 4.7 with no left shift. PT is 15.2 today and the INR is 1.2. PTT is 73.6. Platelet count has actually improved since admission and is currently 69,000. Hemoglobin is stable at 13.1. No bruising, bleeding from the nose or mouth or anus. Continues to c/o severe back pain and RLE.......not motivated to get out of bed. - Physical Exam General: Alert Oral: Moist Mucosa, No Gingival or Mucosal Lesions/ Ulcerations Cardiovascular: Regular rate, Regular Rhythm, Normal S1, Normal S2, No Gallop Abdomen: Bowel Sounds Present, Soft, Non Tender, Non-Distended Extremities: - - Patchy erythema of the medial thigh has resolved. He continues to have circumferential erythema extending from the right tibial plateau to the ankle. No openings in the skin. The skin is beginning to take on a purplish cast sometimes seen with streptococcal cellulitis. Skin: No rashes Vital Signs Temp Pulse Resp BP Pulse Ox 98.5 F 80 16 124/51 H 96 01/21/19 02:23 01/21/19 08:00 01/21/19 02:23 01/21/19 02:23 01/21/19 02:23 Oxygen Delivery Method Room Air Weight: 308 lb 12.8 oz Body Mass Index (BMI) 38.9 Finger Stick Blood Glucose 106 Intake and Output for Last 24 Hours 01/19/19 01/20/19 01/21/19 23:59 23:59 23:59 Intake Total 3622 / 3622 4800 / 4800 918 / 918 Output Total 5775 / 5775 4750 / 4750 1000 / 1000 Balance -2153 / -2153 50 / 50 -82 / -82 Microbiology Past 72 Hours 01/17/19 01:20 Blood Culture - Preliminary Blood Culture (Wb) #2 - Anticubital Right No growth in 48 hours. 01/17/19 01:00 Blood Culture - Preliminary Blood Culture (Wb) #2 - Anticubital Left No growth in 48 hours. Laboratory Tests Past 24 Hrs 01/20/19 01/20/19 01/21/19 12:35 20:05 02:42 WBC RBC Hgb Hct MCV MCH MCHC RDW RDW Differential Plt Count MPV Immature Gran % (Auto) Neut % (Auto) Lymph % (Auto) [place] % (Auto) Eos % (Auto) Baso % (Auto) Absolute Neuts (auto) Absolute Lymphs (auto) Total Counted PT 15.2 H INR 1.2 APTT 43.0 H 70.6 H 01/21/19 01/21/19 02:42 02:42 WBC 4.7 RBC 4.19 L Hgb 13.1 Hct 37.3 L MCV 89.0 MCH 31.3 MCHC 35.1 RDW 15.1 H RDW Differential 49.3 H Plt Count 69 L MPV 12.0 Immature Gran % (Auto) 0.000 Neut % (Auto) 53.0 Lymph % (Auto) 26.2 [place] % (Auto) 12.4 H Eos % (Auto) 7.6 H Baso % (Auto) 0.8 Absolute Neuts (auto) 2.5 Absolute Lymphs (auto) 1.24 Total Counted Not Reportable PT INR APTT 73.6 H Medical Necessity - Tobacco Use Smoking Status: Former smoker Assessment/Plan All Active Problems Cellulitis (Acute) Intervertebral disc disorder with radiculopathy of lumbar region (Acute) DVT (deep venous thrombosis) (Acute) Malnutrition (Resolved) Ulcer of left ankle (Resolved) Intervertebral disc disorder with radiculopathy of lumbar region (Acute) Cellulitis of left ankle (Resolved) Impressions 1. DVT of the RLE - in a pt with cirrhosis, thrombocytopenia and mildly prolonged PT.......may have a hypercoagulable disorder or occult malignancy 2. chronic thrombocytopenia - stable 3. possible cellulitis but, I feel the erythema and warmth are more likely due to VTE since he is afebrile and the ESR is < 1 and the CRP < 2.9 4. DEAN with cirrhosis 5. obesity 6. Suspected depression Continue antibiotics Adjust warfarin-discontinue heparin when the INR is 2 or greater. Because of his cirrhosis and thrombocytopenia will attempt to maintain the INR between 2 and 2.5 Code Visit Inpatient E&M: 16671 Subs Hosp L1
[2019-01-21] MEDS: HEPARIN/D5w 25,000 UNITS 25,000 UNITS/250 ML IV.SOLN. 18 UNITS IV (13:25)
[2019-01-21] MEDS: Clindamycin HCl 150 MG Capsule 450 MG PO ×2 (14:00→22:15)
[2019-01-21 14:04] VITALS: BP 124/67; PULSE 85; RESP 18; TEMP 37.1; O2SAT 97
--- NOTE | 2019-01-21 15:15 | CASEMGMT ---
MARIA EUGENIA BERMUDEZ followed up with patient regarding discharge needs. Per therapy notes patient has been using [facility]. Patient states he may benefit from [facility]. Script for [facility] on chart for hospitalist to sign. Patient can take script at discharge and fill at DME company of choice.
[2019-01-21 20:00] VITALS: BP 141/65; PULSE 94; RESP 16; TEMP 37.1; O2SAT 97
[2019-01-21] MEDS: Methocarbamol 500 MG Tablet PO (22:15)
[2019-01-22] MEDS: HEPARIN/D5w 25,000 UNITS 25,000 UNITS/250 ML IV.SOLN. 18 UNITS IV ×2 (02:23→16:32)
[2019-01-22] MEDS: oxyCODONE 5 MG Tablet 15 MG PO ×5 (02:27→22:33)
[2019-01-22 03:59] VITALS: BP 137/65; PULSE 94; RESP 16; TEMP 36.9; O2SAT 95
[2019-01-22] MEDS: Clindamycin HCl 150 MG Capsule 450 MG PO ×3 (06:01→21:26)
[2019-01-22 07:29] VITALS: BP 141/73; PULSE 85; RESP 16; TEMP 36.8; O2SAT 94
[2019-01-22] MEDS: DEXTROAMPHETAMINE/AMPHETAMINE 30 MG TABLET PO ×2 (07:48→16:31)
[2019-01-22] MEDS: Gabapentin 300 MG Capsule PO ×2 (07:49→16:36)
[2019-01-22 08:19] LABS: International Normalized Ratio 1.3; Prothrombin Time (Protime)PT. 15.9 SECONDS (11.7-14.9)
[2019-01-22 14:02] VITALS: BP 135/58; PULSE 80; RESP 16; TEMP 36.7; O2SAT 99
--- NOTE | 2019-01-22 18:14 | PN_ITS ---
Subjective: Day #6 antibiotics-clindamycin All events of the past 24 hours have been reviewed. He is afebrile with stable vital signs. INR is 1.3 today and the dose was increased yesterday from 2.5 mg daily to 5 mg daily. PLT's are stable at 69,000 Objective: No change in the examination of the right lower extremity. Continues to be in bed most of the time. I have not seen him in the chair yet. He states he ambulates but I have not observe this. Heart-regular rate and rhythm, no murmurs, no gallop Abdomen-soft, Nontender, nondistended, normal bowel sounds heard Appears depressed and is tearful at times - Physical Exam Vital Signs Temp Pulse Resp BP Pulse Ox 98.0 F 80 16 135/58 H 99 01/22/19 14:02 01/22/19 14:02 01/22/19 14:02 01/22/19 14:02 01/22/19 14:02 Oxygen Delivery Method Room Air Weight: 313 lb 15.012 oz Body Mass Index (BMI) 38.9 Finger Stick Blood Glucose 106 Intake and Output for Last 24 Hours 01/20/19 01/21/19 01/22/19 23:59 23:59 23:59 Intake Total 4800 / 4800 2312 / 2312 137 / 137 Output Total 4750 / 4750 2550 / 2550 1450 / 1450 Balance 50 / 50 -238 / -238 -1313 / -1313 Microbiology Past 72 Hours 01/17/19 01:20 Blood Culture - Final Blood Culture (Wb) #2 - Anticubital Right No growth in 5 days. 01/17/19 01:00 Blood Culture - Final Blood Culture (Wb) #2 - Anticubital Left No growth in 5 days. Laboratory Tests Past 24 Hrs 01/22/19 07:39 PT 15.9 H INR 1.3 Medical Necessity - Tobacco Use Smoking Status: Former smoker Assessment/Plan All Active Problems Cellulitis (Acute) Intervertebral disc disorder with radiculopathy of lumbar region (Acute) DVT (deep venous thrombosis) (Acute) Malnutrition (Resolved) Ulcer of left ankle (Resolved) Intervertebral disc disorder with radiculopathy of lumbar region (Acute) Cellulitis of left ankle (Resolved) Impressions 1. DVT of the RLE - in a pt with cirrhosis, thrombocytopenia and mildly prolonged PT.......may have a hypercoagulable disorder or occult malignancy 2. chronic thrombocytopenia - stable 3. possible cellulitis but, I feel the erythema and warmth are more likely due to VTE since he is afebrile and the ESR is < 1 and the CRP < 2.9 4. DEAN with cirrhosis 5. obesity change the Gabapentin to 300 mg BID and 600 mg at HS add Trazodone 50 mg at HS Start Effexor ER 37.5 mg A QAM - need to increase slowly due to liver dz and it can affect INR Reviewed the MRI of the LS spine and the only place there is a problem is at L5- S1. Encouraged his to purchase a TENS unit at the pharmacy and use it for back pain 3-4 times a day. Encouraged weight loss. Encouraged him to get up and walk 3 times a day Recheck the INR in the AM...DC when the INR is >1.9 Code Visit Inpatient E&M: 85596 Subs Hosp L2
[2019-01-22 20:08] VITALS: BP 136/71; PULSE 79; RESP 16; TEMP 37.3; O2SAT 96
[2019-01-22] MEDS: Morphine 4 MG/ML Syringe IV (20:25)
[2019-01-22] MEDS: Gabapentin 600 MG Tablet PO (21:26)
[2019-01-22] MEDS: Methocarbamol 500 MG Tablet PO (21:26)
[2019-01-22] MEDS: traZODone 50 MG Tablet PO (21:26)
[2019-01-23 02:05] VITALS: BP 133/66; PULSE 84; RESP 14; TEMP 37.4; O2SAT 96
[2019-01-23] MEDS: oxyCODONE 5 MG Tablet 15 MG PO ×4 (04:17→21:15)
[2019-01-23] MEDS: Clindamycin HCl 150 MG Capsule 450 MG PO ×3 (05:59→21:15)
[2019-01-23] MEDS: HEPARIN/D5w 25,000 UNITS 25,000 UNITS/250 ML IV.SOLN. 18 UNITS IV ×2 (06:01→21:17)
[2019-01-23 06:48] LABS: International Normalized Ratio 1.4; Prothrombin Time (Protime)PT. 17.1 SECONDS (11.7-14.9)
[2019-01-23 07:00] LABS: Hematocrit 38.7 % (40-54); Hemoglobin 13.5 g/dl (13.0-16.5); Mean Corp Hgb Conc 34.9 g/gl (32-36); Mean Corpuscular Hgb 31.5 pg (27.0-32.0); Mean Corpuscular Volume 90.2 fL (80-94); Mean Platelet Vol. 10.8 fl (6.2-12.0); Platelet Count 78 K/mm3 (150-450); RBC Distribution Width CV 15.2 % (11.6-14.6); RBC Distribution Width SD 50.2 fl (35.1-43.9); Red Blood Count 4.29 M/mm3 (4.6-6.2); White Blood Count 5.6 K/mm3 (4.4-11.0)
[2019-01-23 07:08] LABS: Scan Indicated on CBC? Y/N NO
--- NOTE | 2019-01-23 07:48 | PCM.PROGNOTE ---
Subjective: Hemoglobin is stable at 13.5 and platelets are up to 78,000. The INR today is 1.4 and PTT is pending. Remains afebrile. Still with minimal activity despite encouragement to ambulate. Objective: Right lower extremity has circumferential red/violaceous appearance to it with no openings in the skin. Edema has decreased. There is minimal increased warmth to touch today. Skin remains well moisturized. - Physical Exam Vital Signs Temp Pulse Resp BP Pulse Ox 99.4 F H 84 14 133/66 H 96 01/23/19 02:05 01/23/19 02:05 01/23/19 02:05 01/23/19 02:05 01/23/19 02:05 Oxygen Delivery Method Room Air Weight: 308 lb 13.882 oz Body Mass Index (BMI) 38.9 Finger Stick Blood Glucose 106 Intake and Output for Last 24 Hours 01/21/19 01/22/19 01/23/19 23:59 23:59 23:59 Intake Total 2312 / 2312 137 / 137 1131 / 1131 Output Total 2550 / 2550 1450 / 1450 1150 / 1150 Balance -238 / -238 -1313 / -1313 -19 / -19 Microbiology Past 72 Hours 01/17/19 01:20 Blood Culture - Final Blood Culture (Wb) #2 - Anticubital Right No growth in 5 days. 01/17/19 01:00 Blood Culture - Final Blood Culture (Wb) #2 - Anticubital Left No growth in 5 days. Laboratory Tests Past 24 Hrs 01/22/19 01/23/19 01/23/19 07:39 06:10 06:10 WBC 5.6 RBC 4.29 L Hgb 13.5 Hct 38.7 L MCV 90.2 MCH 31.5 MCHC 34.9 RDW 15.2 H RDW Differential 50.2 H Plt Count 78 L MPV 10.8 PT 15.9 H 17.1 H INR 1.3 1.4 APTT 01/23/19 06:10 WBC RBC Hgb Hct MCV MCH MCHC RDW RDW Differential Plt Count MPV PT INR APTT Pending Medical Necessity - Tobacco Use Smoking Status: Former smoker Assessment/Plan All Active Problems Cellulitis (Acute) Intervertebral disc disorder with radiculopathy of lumbar region (Acute) DVT (deep venous thrombosis) (Acute) Malnutrition (Resolved) Ulcer of left ankle (Resolved) Intervertebral disc disorder with radiculopathy of lumbar region (Acute) Cellulitis of left ankle (Resolved) Impressions 1. DVT of the RLE - in a pt with cirrhosis, thrombocytopenia and mildly prolonged PT.......may have a hypercoagulable disorder or occult malignancy 2. chronic thrombocytopenia - stable 3. possible cellulitis but, I feel the erythema and warmth are more likely due to VTE since he is afebrile and the ESR is < 1 and the CRP < 2.9 4. DEAN with cirrhosis 5. obesity Daily warfarin dose increased We will give an extra 3 mg today Recheck PT/INR and CBC in the a.m. Platelets have remained stable despite heparin infusion in fact they have improved. White blood cell count has been normal for the duration of his admission. He initially had a left shift but this resolved on 01/20/2019. ESR was less than 1 and CRP was less than 2.9. I think he does have cellulitis but is unable to mount sufficient immune response due to DEAN/cirrhosis. will continue to treat for cellulitis Code Visit Inpatient E&M: 94134 Subs Hosp L1
[2019-01-23 08:20] VITALS: BP 133/67; PULSE 89; RESP 16; TEMP 36.8; O2SAT 97
[2019-01-23] MEDS: DEXTROAMPHETAMINE/AMPHETAMINE 30 MG TABLET PO ×2 (08:32→17:35)
[2019-01-23] MEDS: Gabapentin 300 MG Capsule PO ×2 (08:34→17:34)
[2019-01-23] MEDS: Venlafaxine XR 37.5 MG Capsule PO (10:43)
[2019-01-23 14:46] VITALS: BP 134/70; PULSE 86; RESP 16; TEMP 36.9; O2SAT 95
[2019-01-23] MEDS: Morphine 4 MG/ML Syringe IV ×2 (17:46→22:28)
[2019-01-23 21:15] VITALS: BP 150/70; PULSE 82; RESP 18; TEMP 36.7; O2SAT 94
[2019-01-23] MEDS: traZODone 50 MG Tablet PO (21:15)
[2019-01-23] MEDS: Methocarbamol 500 MG Tablet PO (21:15)
[2019-01-23] MEDS: Gabapentin 600 MG Tablet PO (21:15)
[2019-01-23] MEDS: 0.9% NaCl Peripheral Flush Adult/Peds IV (22:29)
[2019-01-24 02:55] VITALS: BP 133/57; PULSE 83; RESP 18; TEMP 36.6; O2SAT 93
[2019-01-24 06:27] LABS: Absolute Lymphocyte Count 1.25 X10^3/ul (0.83-4.51); Basophil# 0.03 X10^3/uL; Basophil% 0.5 % (0-1); Eosinophils% 7.3 % (0-5); Hematocrit 38.6 % (40-54); Hemoglobin 13.3 g/dl (13.0-16.5); Lymphocyte # 1.25 X10^3/ul (4.0); Lymphocyte % 22.8 % (19-41); Mean Corp Hgb Conc 34.5 g/gl (32-36); Mean Platelet Vol. 11.4 fl (6.2-12.0); Monocyte# 0.75 X10^3/uL; Monocyte% 13.7 % (0-10); Neutrophil # 3.03 X10^3/uL (2.7-7.7); Neutrophil % 55.2 % (47-70); Platelet Count 90 K/mm3 (150-450); RBC Distribution Width CV 15.2 % (11.6-14.6); RBC Distribution Width SD 49.9 fl (35.1-43.9); Red Blood Count 4.29 M/mm3 (4.6-6.2); White Blood Count 5.5 K/mm3 (4.4-11.0)
[2019-01-24] MEDS: Clindamycin HCl 150 MG Capsule 450 MG PO ×2 (06:31→15:07)
[2019-01-24 06:34] LABS: International Normalized Ratio 1.8; Prothrombin Time (Protime)PT. 21.2 SECONDS (11.7-14.9)
[2019-01-24] MEDS: oxyCODONE 5 MG Tablet 15 MG PO ×3 (06:35→15:09)
[2019-01-24 06:38] LABS: POSITIVE COUNT NO; POSITIVE DIFFERENTIAL NO; POSITIVE MORPHOLOGY NO
[2019-01-24 08:43] VITALS: BP 119/66; PULSE 74; RESP 18; TEMP 36.9; O2SAT 94
[2019-01-24 08:45] VITALS: PULSE 88
[2019-01-24] MEDS: Gabapentin 300 MG Capsule PO (08:54)
[2019-01-24] MEDS: DEXTROAMPHETAMINE/AMPHETAMINE 30 MG TABLET PO (08:55)
[2019-01-24] MEDS: HEPARIN/D5w 25,000 UNITS 25,000 UNITS/250 ML IV.SOLN. 18 UNITS IV (10:07)
[2019-01-24] MEDS: Venlafaxine XR 37.5 MG Capsule PO (10:08)
--- NOTE | 2019-01-24 11:49 | NURSING ---
Addendum entered by Sherley Bingham 01/24/19 12:14: received return call from melodie aware he will be over around 12:30 to see pt, primary RN aware Original Note: left message for [facility] as dr. mercado requesting him see pt prior to his discharge
--- NOTE | 2019-01-24 12:13 | CASEMGMT ---
MARIA EUGENIA BERMUDEZ received script from hospitalist for Outpatient Aquatic Therapy. Script placed on chart and will be included with discharge paperwork. MARIA EUGENIA BERMUDEZ updated patient regarding script and instructed him to follow-up with [facility] regarding scheduling. Patient voiced understanding. CM to continue to follow and plan for a safe discharge.
--- NOTE | 2019-01-24 12:34 | DCINST_ITS ---
- Discharge Diagnoses Current Active Problems: Current Active and Chronic Problems Cellulitis (Acute) You will use the following diet at home:: Other - Resume previous diet Your food should be the consistency of: Regular Your liquids should be the consistency of: Regular/Thin Discharge Activity: Return to Normal Activity, May not drive while taking narcotic pain medications., Use Walker Return to work on:: 01/31/19 May resume sexual activity in: No Restrictions Weight Bearing Status: Full weight bearing Keep extremity elevated above heart level: Left Leg Call your doctor if you observe: Fever of 101 or Higher, Shortness of breath, Dizziness, Fainting spells, Chest pain, Uncontrolled pain, - - Call your PCP if severe diarrhea ( > 5 stools a day), painful sores in the mouth, painful swallowing, rash or itching. Taking a probiotic such as Lactobacillus or Kefir can help with loose stools while taking antibiotics. Any bleeding from the nose, mouth or anus or large bruises. Additional Instructions: 1. I have started you on an anti-depressant that will also help with chronic pain......it is called effexor. There is an interaction with warfarin but, we will be monitoring the PT/INR (bleeding time) We want to keep the INR between 2 and 2.3 since you have liver disease and low platelets. If the dosage is changed will need to get a PT/INR in 1 week. 2. The prescription for PT must say PT/aqua therapy not just aqua therapy.....hopefully this will work for you....if not tell Dr. Cummings and they will call the insurance company and ask why and straighten it out. 3. Please follow up with counselling to learn how to deal with chronic disease.......I think this will help you a lot.....you seem very depressed. 4. I called Dr. Worthy's office and told them I would be giving you a prescription for Oxy IR to get you through the DVT and the cellulitis until they resolve and they were going to put a note in the chart. 5. Depression makes EVERY pain worse and just taking a pill will not help.....therapy is very important. Depression not only affects you it will affect work, , children in addition to you. 6. I am giving you a lab slip to have the bleeding time and a platelet count Wed morning. Pending Tests on Discharge: none Allergies/Adverse Reactions: Allergies No Known Allergies Allergy (Verified 01/19/18 03:59) Medications to take at Discharge Methocarbamol [Robaxin] 500 mg PO QHS 01/07/17 Ondansetron [Zofran Odt] 4 mg PO Q8H PRN PRN #10 tablet 06/30/17 Dextroamp-Amphet ER 30 mg Cap 30 mg PO BID 01/17/19 Oxycodone [Oxyir] 5 mg PO BID 01/17/19 Clindamycin [Cleocin] 300 mg PO TID #18 cap 01/24/19 Enoxaparin Sodium [Lovenox] 140 mg SQ Q12H #10 syr 01/24/19 Gabapentin [Neurontin] 300 mg PO TID #120 cap 01/24/19 Oxycodone [Oxyir] 15 mg PO Q4H PRN PRN 7 Days #60 tab 01/24/19 Venlafaxine XR [Effexor Xr] 37.5 mg PO DAILY #30 cap 01/24/19 Warfarin [Coumadin] 7.5 mg PO DAILY #45 tab 01/24/19 The following prescriptions were given: Oxycodone [Oxyir] 15 mg PO Q4H PRN PRN 7 Days #60 tab PRN Reason: Pain Enoxaparin Sodium [Lovenox] 140 mg SQ Q12H #10 syr Venlafaxine XR [Effexor Xr] 37.5 mg PO DAILY #30 cap Warfarin [Coumadin] 7.5 mg PO DAILY #45 tab Clindamycin [Cleocin] 300 mg PO TID #18 cap Gabapentin [Neurontin] 300 mg PO TID #120 cap Orders to be completed after discharge: CBC-Complete Blood Cnt No Diff Location: Laboratory Prothrombin Time w/INR Location: Laboratory Primary Care Physician: Joselyn Cummings DO [Primary Care Provider] - Please follow up with your Primary Care Physician in: thursday at 11 Test Results: Test results from this visit will be discussed in further detail at your follow- up appointment, if applicable. Please Follow Up With: Joselyn Cummings DO When: THURSDAY at 11 Please Follow Up With: Dr. Mcelroy When: Thursday Proposed Discharge Date: 01/24/19
--- NOTE | 2019-01-24 12:49 | PCM.DC.SUM ---
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 Hospital Course and Treatment Imaging Results: Clinical Impression(s) from Imaging Studies Chest CTA 01/18/19 12:34 IMPRESSION: Nondiagnostic exam to exclude pulmonary emboli. There are no pulmonary emboli within the main pulmonary arteries. Evaluation of the more distal pulmonary arteries including segmental and subsegmental pulmonary arteries is nondiagnostic due to significant respiratory motion and timing of the contrast bolus. A repeat exam or VQ scan could be performed to further evaluate. Cardiomegaly Nondiagnostic exam to evaluate for small pulmonary nodules due to respiratory motion Evidence for hepatic cirrhosis, portal hypertension, splenomegaly and upper abdominal varices Electronically Signed: Kyle Holder, at 16:24 EDT Tel , Service support , ADDENDUM: 01/18/19 0903 IMPRESSION: Nondiagnostic exam to exclude pulmonary emboli. There are no pulmonary emboli within the main pulmonary arteries. Evaluation of the more distal pulmonary arteries including segmental and subsegmental pulmonary arteries is nondiagnostic due to significant respiratory motion and timing of the contrast bolus. A repeat exam or VQ scan could be performed to further evaluate. Cardiomegaly Nondiagnostic exam to evaluate for small pulmonary nodules due to respiratory motion Evidence for hepatic cirrhosis, portal hypertension, splenomegaly and upper abdominal varices N.B. : The above information has been verbally conveyed by Kyle Holder to Dr. Ping Gaspar MD, on 01/18/2019 16:36:05 (ET). Electronically Signed: Kyle Holder at 16:24 EDT Tel , Service support , Abdomen/Pelvis CT 01/18/19 12:36 IMPRESSION: Little change compared to the previous study. Cirrhotic liver with cavernous transformation of the portal vein and very large varicosities particularly in the retroperitoneum adjacent to the common iliac vessels. No ascites. Individualized dose optimization techniques were used for this CT. at 0154 Reported and signed by: Tommy Hernandes MD Electronically Signed: Tommy Hernandes, at 1:53 EDT Tel , Service support , Laboratory Results - last 24 hr 01/24/19 01/24/19 05:38 05:38 WBC 5.5 RBC 4.29 L Hgb 13.3 Hct 38.6 L MCV 90.0 MCH 31.0 MCHC 34.5 RDW 15.2 H RDW Differential 49.9 H Plt Count 90 L MPV 11.4 Immature Gran % (Auto) 0.500 Neut % (Auto) 55.2 Lymph % (Auto) 22.8 [place] % (Auto) 13.7 H Eos % (Auto) 7.3 H Baso % (Auto) 0.5 Absolute Neuts (auto) 3.0 Absolute Lymphs (auto) 1.25 Total Counted Not Reportable PT 21.2 H INR 1.8 APTT 79.0 H Microbiology 01/17/19 01:20 Blood Culture (Wb) #2 - Anticubital Right Blood Culture - Final No growth in 5 days. 01/17/19 01:00 Blood Culture (Wb) #2 - Anticubital Left Blood Culture - Final No growth in 5 days. [facility] Operations: None Procedures: None Summary of Care Provided: The patient is a 43-year-old male with a past medical history of cirrhosis secondary to SORIANO, morbid obesity, chronic back pain, thrombocytopenia, diabetes mellitus type 2(not currently on any medication.....tells me it has resolved), venous insufficiency and DVT of the right leg following a surgery who presented to the emergency department on 01/17/2019 complaining of right leg pain, chills and redness of the right lower extremity. Temp at admission to the emergency department was 98.6. White blood cell count was 6.5 with 84% neutrophils. Platelet count was low at 49,000 and review of old labs shows it has been chronically low since 2014. BMP was unremarkable. Blood cultures were drawn in the emergency department and he was treated with Zosyn. He was admitted to the hospital and was started on Ancef by the night hospitalist. A venous ultrasound was done on the right lower extremity and showed acute deep vein thrombosis of the right soleus vein. The right greater saphenous vein was patent and compressible and there was normal flow in the left common femoral vein. On PE there was patchy erythema of the right lower extremity and a 2 mm opening in the skin at approximately mid tibia. The patchy erythema extended up the medial thigh and there was increased warmth to touch. He was initially started on Eliquis but, I was finally able to connect with his human services worker, Dr. Corley, and he recommended a heparin drip and warfarin. He was started on a heparin infusion and platelets were monitored daily for a few days. The platelets actually improved while on heparin and increased from 44,000-90,000. Warfarin dosage was adjusted daily and on 01/24/2019 was 1.8. His platelets on that day were 90,000. He was discharged home on Lovenox and 7.5 mg of Warfarin daily. He has an appt with Dr. Cummings on Thu at 11 AM. He was maintained on clindamycin 300 mg p.o. 3 times daily at discharge for suspected strep cellulitis of the right lower extremity. The edema had improved but there was still some patchy redness with very minimal increased warmth to touch. While in the hospital he was noted to be severely depressed. He is not coping well with the chronic diagnosis of Soriano and cirrhosis. He was given literature to read about cirrhosis and what to expect. Prior to discharge he was seen in consultation by Johnnie from behavioral health and given resources to follow-up with for counseling to learn how to deal with his chronic illness. He was started on Effexor XR 37.5 mg daily while in the hospital and was tolerating prior to discharge. Effexor can prolong the INR and so if there is any change made in the doses he should have follow-up PT/INR. He was given a lab slip to have a PT/INR and CBC done on 01/26/[address] Cummings in the office. He will also follow-up with Dr. Beck for chronic pain management. He was given a prescription for OxyIR and instructed to take 15 mg every 4 hours as needed for pain. He was given 60 tablets. A phone call was made to Dr. Beck's office and they will make a notation in the chart. He will also continue to follow-up with Dr. Corley and will farrah the office to schedule an appt. PHYSICAL EXAM: GENERAL: alert, oriented X 3, Cooperative, NAD, looks depressed, poor pain tolerance ORAL: moist mucosa, no mucosal lesions NECK: No JVD, supple, trachea midline LUNGS: CTA, symmetric chest expansion HEART: RRR, Normal S1 and S2, no rub, no gallop ABDOMEN: soft, NT, ND, BS present, no guarding with palpation EXTREMITIES: Decreased edema of the RLE, no erythema involving the R thigh. He still has circumferential edema of the RLE distal to the knee. No openings in the skin, minimal increased warmth to touch SKIN: No rashes, no breakdown NEUROLOGIC: no focal neurologic deficits PSYCH: appropriate, normal affect, pleasant This note was generated with [employer] dictation software. It may contain incorrect words, spelling, and punctuation that were not noted in checking the note before signing. - Physical Exam Vital Signs Temp Pulse Resp BP Pulse Ox 98.5 F 88 18 119/66 94 01/24/19 08:43 01/24/19 08:45 01/24/19 08:43 01/24/19 08:43 01/24/19 08:43 Oxygen Delivery Method Room Air Weight: 308 lb 3.3 oz Body Mass Index (BMI) 38.9 Finger Stick Blood Glucose 106 Intake and Output for Last 24 Hours 01/22/19 01/23/19 01/24/19 23:59 23:59 23:59 Intake Total 137 / 137 1131 / 1131 1138.4 / 1138.4 Output Total 1450 / 1450 1150 / 1150 1300 / 1300 Balance -1313 / -1313 -19 / -19 -161.6 / -161.6 Microbiology Past 72 Hours 01/17/19 01:20 Blood Culture - Final Blood Culture (Wb) #2 - Anticubital Right No growth in 5 days. 01/17/19 01:00 Blood Culture - Final Blood Culture (Wb) #2 - Anticubital Left No growth in 5 days. Laboratory Tests Past 24 Hrs 01/24/19 01/24/19 05:38 05:38 WBC 5.5 RBC 4.29 L Hgb 13.3 Hct 38.6 L MCV 90.0 MCH 31.0 MCHC 34.5 RDW 15.2 H RDW Differential 49.9 H Plt Count 90 L MPV 11.4 Immature Gran % (Auto) 0.500 Neut % (Auto) 55.2 Lymph % (Auto) 22.8 [place] % (Auto) 13.7 H Eos % (Auto) 7.3 H Baso % (Auto) 0.5 Absolute Neuts (auto) 3.0 Absolute Lymphs (auto) 1.25 Total Counted Not Reportable PT 21.2 H INR 1.8 APTT 79.0 H Discharge Activity: Return to Normal Activity, May not drive while taking narcotic pain medications., Use Walker Return to work on:: 01/31/19 May resume sexual activity in: No Restrictions Weight Bearing Status: Full weight bearing Keep extremity elevated above heart level: Left Leg Call your doctor if you observe: Fever of 101 or Higher, Shortness of breath, Dizziness, Fainting spells, Chest pain, Uncontrolled pain, - - Call your PCP if severe diarrhea ( > 5 stools a day), painful sores in the mouth, painful swallowing, rash or itching. Taking a probiotic such as Lactobacillus or Kefir can help with loose stools while taking antibiotics. Any bleeding from the nose, mouth or anus or large bruises. Home Medications: Medications to take at Discharge Methocarbamol [Robaxin] 500 mg PO QHS 01/07/17 Ondansetron [Zofran Odt] 4 mg PO Q8H PRN PRN #10 tablet 06/30/17 Dextroamp-Amphet ER 30 mg Cap 30 mg PO BID 01/17/19 Oxycodone [Oxyir] 5 mg PO BID 01/17/19 Clindamycin [Cleocin] 300 mg PO TID #18 cap 01/24/19 Enoxaparin Sodium [Lovenox] 140 mg SQ Q12H #10 syr 01/24/19 Gabapentin [Neurontin] 300 mg PO TID #120 cap 01/24/19 Oxycodone [Oxyir] 15 mg PO Q4H PRN PRN 7 Days #60 tab 01/24/19 Venlafaxine XR [Effexor Xr] 37.5 mg PO DAILY #30 cap 01/24/19 Warfarin [Coumadin] 7.5 mg PO DAILY #45 tab 01/24/19 Following Prescrptions Were Given to Patient: Oxycodone [Oxyir] 15 mg PO Q4H PRN PRN 7 Days #60 tab PRN Reason: Pain Enoxaparin Sodium [Lovenox] 140 mg SQ Q12H #10 syr Venlafaxine XR [Effexor Xr] 37.5 mg PO DAILY #30 cap Warfarin [Coumadin] 7.5 mg PO DAILY #45 tab Clindamycin [Cleocin] 300 mg PO TID #18 cap Gabapentin [Neurontin] 300 mg PO TID #120 cap Other Amb Orders: CBC-Complete Blood Cnt No Diff Location: Laboratory Prothrombin Time w/INR Location: Laboratory Primary Care Physician: Joselyn Cummings DO [Primary Care Provider] - Please follow up with your Primary Care Physician in: thursday at 11 Please Follow Up With: Joselyn Cummings DO When: THURSDAY at 11 Please Follow Up With: Dr. Mcelroy When: Thursday Disposition: Home Minutes spent on discharge:: 40 Patient Condition:: Stable Medical Necessity - Tobacco Use Smoking Status: Former smoker Tobacco Use: Non-smoker Meaningful Use Info Meaningful Use Diagnoses (Choose all that apply): None applicable Code Visit Inpatient E&M: 09649 Disch Hosp
--- NOTE | 2019-01-24 13:20 | BH.NOTE ---
BH: Inpatient Note - Notes Behavioral Health Inpatient Note: 01/24/19 13:20 Referral to [facility] from Dr. Gaspar due to depressive symptoms related to chronic medical issues. Met with pt in his room with present. Pt denies any suicidal ideations, plan, or intent. Reports passive thoughts of sometimes life isn't worth it however again denies any thoughts of suicide. Pt believes that primary stressor is pain associated with medical symptoms which has limited his ability to complete tasks around the house and at work. Loss of independence also impacting depression and overall emotions. Insight into correlation between medical and depression. Endorses decreased sleep, decreased energy, hopelessness, anhedonia, irritability, and no pleasure in activities. Reports mild to moderate anxiety. Discussed the benefits of mental health counseling to decrease depressive symptoms. Pt was receptive and was given list of local mental health providers. Encouraged to follow-up.
[2019-01-24 15:10] VITALS: BP 134/65; PULSE 97; RESP 18; TEMP 37.2; O2SAT 97
--- NOTE | 2019-01-25 15:39 | CASEMGMT ---
RN CM Discharge Follow-up Phone Call: AMARILIS: 13 Strata: 4 Call Date: 01/25/19 Discharge Date: 01/24/19 Time of Call: 1540 Duration: 1 min Admitting Diagnosis: Cellulitis, DVT RN CM attempted to complete follow-up phone call after recent hospitalization. No answer, voice message left with return contact information.
== END 2019-01-24 17:08 | disposition home or self-care (01) | DRG 300 ==
LOC: ED 01-17 00:27 → MS3 01-17 03:07
PROVIDERS: Family Medicine; Admitting Provider Hospitalist; Emergency Provider Emergency Medicine; Family Provider Internal Medicine; PCP Internal Medicine; Visit Provider Internal Medicine
DX: I82.4Z1 Acute embolism and thrombosis of unspecified deep veins of right distal lower extremity (principal); L03.115 Cellulitis of right lower limb; K74.60 Unspecified cirrhosis of liver; K75.81 Nonalcoholic steatohepatitis (NASH); D69.59 Other secondary thrombocytopenia; I87.2 Venous insufficiency (chronic) (peripheral); E66.01 Morbid (severe) obesity due to excess calories; Z68.38 Body mass index [BMI] 38.0-38.9, adult; Z87.891 Personal history of nicotine dependence; G89.4 Chronic pain syndrome; Z86.718 Personal history of other venous thrombosis and embolism; Z86.14 Personal history of Methicillin resistant Staphylococcus aureus infection; M48.062 Spinal stenosis, lumbar region with neurogenic claudication; M51.16 Intervertebral disc disorders with radiculopathy, lumbar region
CPT/HCPCS: 36415; 71275; 74177; 80048; 80053; 80202; 82040; 83036; 83735; 84100; 85025; 85027; 85610; 85652; 85730; 86140; 87040; 93971; 97116; 97162; 97530; 97802; 99282; J7040; Q9967; A4216; J2405

== ENCOUNTER → 2019-01-26 10:30 | Outpatient (CLI) | payer OTHER, SELFPAY ==
[2019-01-17 03:38] VITALS: BMI 38.9
[2019-01-26 11:13] LABS: Hematocrit 41.7 % (40-54); Hemoglobin 14.6 g/dl (13.0-16.5); International Normalized Ratio 2.5; Mean Corpuscular Hgb 31.3 pg (27.0-32.0); Mean Corpuscular Volume 89.5 fL (80-94); Mean Platelet Vol. 10.7 fl (6.2-12.0); Platelet Count 110 K/mm3 (150-450); Prothrombin Time (Protime)PT. 27.1 SECONDS (11.7-14.9); RBC Distribution Width CV 15.1 % (11.6-14.6); RBC Distribution Width SD 49.1 fl (35.1-43.9); Red Blood Count 4.66 M/mm3 (4.6-6.2); White Blood Count 5.9 K/mm3 (4.4-11.0)
[2019-01-26 11:14] LABS: Scan Indicated on CBC? Y/N NO
== END ==
PROVIDERS: Family Provider Internal Medicine; PCP Internal Medicine; Referring Provider Internal Medicine; Visit Provider Internal Medicine
DX: D69.6 Thrombocytopenia, unspecified (principal); I82.409 Acute embolism and thrombosis of unspecified deep veins of unspecified lower extremity
CPT/HCPCS: 36415; 85027; 85610

== ENCOUNTER 2019-02-11 10:21 | Inpatient (IN) | payer OTHER, SELFPAY ==
[2019-01-17 03:38] VITALS: BMI 38.9
[2019-02-11 10:23] VITALS: BP 159/77; PULSE 101; RESP 18; TEMP 36.6; O2SAT 99; BMI 38.5
[2019-02-11] MEDS: 0.9% Normal Saline 1,000 ML 150 ML IV ×2 (11:04→17:30)
[2019-02-11] MEDS: Ondansetron 4 MG/2 ML Vial IV (11:04)
[2019-02-11 11:17] LABS: Absolute Lymphocyte Count 0.67 X10^3/ul (0.83-4.51); Absolute Neutrophil Count 7.5 X10^3/uL (2.0-7.7); Basophil# 0.03 X10^3/uL; Basophil% 0.3 % (0-1); Eosinophil# 0.25 X10^3/uL; Eosinophils% 2.8 % (0-5); Hemoglobin 13.6 g/dl (13.0-16.5); Lymphocyte # 0.67 X10^3/ul (4.0); Lymphocyte % 7.4 % (19-41); Mean Corp Hgb Conc 34.9 g/gl (32-36); Mean Corpuscular Hgb 30.8 pg (27.0-32.0); Mean Corpuscular Volume 88.2 fL (80-94); Mean Platelet Vol. 10.8 fl (6.2-12.0); Monocyte# 0.62 X10^3/uL; Monocyte% 6.9 % (0-10); Neutrophil # 7.45 X10^3/uL (2.7-7.7); Neutrophil % 82.5 % (47-70); POSITIVE COUNT NO; POSITIVE DIFFERENTIAL NO; POSITIVE MORPHOLOGY NO; Platelet Count 74 K/mm3 (150-450); RBC Distribution Width CV 14.8 % (11.6-14.6); Red Blood Count 4.42 M/mm3 (4.6-6.2)
[2019-02-11 11:29] LABS: Anion Gap 4 (5-15); BUN 7 mg/dL (7-18); BUN/Creat Ratio 9.2 RATIO (10-20); Calcium,Total 8.4 mg/dL (8.5-10.1); Chloride 108 mmol/L (98-107); Creatinine, Serum 0.76 mg/dL (0.70-1.30); EST Glomerular Filtration Rate 118 mL/min (>60); Est Glom Filt Rate - Afr Amer 143 mL/min (>60); Estimated Creatinine Clearance 148.25 ml/min; Glucose 134 mg/dL (74-106); Potassium 3.6 mmol/L (3.5-5.1); Sodium Level 140 mmol/L (136-145)
--- NOTE | 2019-02-11 11:33 | ED.VISSUMM ---
- ER Visit Summary Date of Service: 02/11/19 Chief Complaint: [Redness and swelling to right leg] History of Present Illness: The patient is a 43 M [presents the emergency department with complaint of redness and swelling to his right leg that he noticed this morning. Patient describes chills at home. He denies any significant pain. Patient states that he was diagnosed with a DVT 1 month ago and was placed on warfarin. Patient tells me he is been compliant with his medication. He denies any chest pain or shortness of breath.] Physical Examination: [HEENT-PERRLA, EOMI. Cranial nerves II through XII grossly intact. TMs clear. Mucous membranes moist. No adenopathy. Cardiovascular-regular rate and rhythm without murmur or ectopy Lungs-clear to auscultation, chest wall stable without crepitus or subcu emphysema Abdomen-normoactive bowel sounds, soft, nontender, no rebound or rigidity, no peritoneal signs. Extremities-intact ?4, normal range of motion, normal pulses, atraumatic. Right leg-patient does have erythema from the knee down to the foot. There is warmth associated. There is dry skin and cracked skin noted to the area of the ankle. He has normal dorsal pedal and posterior tibial pulses.] Test Results: [CBC with differential obtained showed a white count of 9.0, hemoglobin 13.6, hematocrit 39, platelets 74. Sodium was 140, potassium 3.6, chloride 108, CO2 28, BUN 7, creatinine 0.76, glucose 134.] Emergency Department Course and Treatment: [Patient had an IV line established and was started on Unasyn 3 g IV.] Treatment Plan: [Patient will likely require admission for IV antibiotics] Disposition: [Admit] Impression: [Cellulitis right leg DVT right leg] This note was generated with [employer] dictation software. It may contain incorrect words, spelling, and punctuation that were not noted in review of the chart prior to signing ED Disposition - Plan for ED Patient: Referrals: Joselyn Cummings DO [Primary Care Provider] -
[2019-02-11 11:34] LABS: International Normalized Ratio 2.2; Prothrombin Time (Protime)PT. 24.6 SECONDS (11.7-14.9)
[2019-02-11 11:38] LABS: Lactic Acid 1.6 mmol/L (0.4-2.0)
--- NOTE | 2019-02-11 12:15 | NURSING ---
DR GAMINO FOR DR MILLER
--- NOTE | 2019-02-11 12:18 | NURSING ---
MED SURG OBS PAINTSIL CELLULITIS RT LEG
[2019-02-11 12:20] VITALS: BP 127/40; PULSE 90; RESP 18; TEMP 37.4; O2SAT 99
--- NOTE | 2019-02-11 12:22 | HP.PCM_ITS ---
Problem List (1) Liver cirrhosis secondary to DEAN Status: Chronic (2) Thrombocytopenia Status: Chronic (3) Cellulitis Status: Acute Qualifiers: Site of cellulitis: extremity Site of cellulitis of extremity: lower extremity Laterality: right Qualified Code(s): L03.115 - Cellulitis of right lower limb (4) Morbid obesity due to excess calories Status: Chronic (5) Diabetes mellitus with complication Status: Chronic History of Present Illness Date of Admission: 02/11/19 Chief Complaint: Left lower extremity swelling and redness - 1 day The patient is a 43 year old M with PMHx of cirrhosis due to Dean, morbid obesity, chronic back pain, recently discharged with who comes in with complaints of right lower extremity swelling and redness. Patient states that he noticed that his right lower extremity was swollen and red today. He has been on his Coumadin. Denied any fever or chills or shortness of breath or chest pain. Vitals in ED showed temp 97.9F, HR 101, BP 159/77, RR 18, spo2 97% on room air. WBC 9.0, Hb 13.6, plt 74, INR 2.2, BMP is unremarkable. Lactic acid is 1.6. Blood cultures is negative. 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) Thrombocytopenia (Chronic) Morbid obesity due to excess calories (Chronic) Diabetes mellitus with complication (Chronic) Edema (Chronic) Venous insufficiency (Chronic) Other intervertebral disc degeneration, lumbar region (Chronic) Other intervertebral disc degeneration, lumbar region (Chronic) Spinal stenosis of lumbar region with neurogenic claudication (Chronic) Spinal stenosis of lumbar region with neurogenic claudication (Chronic) Lumbar disc prolapse with compression radiculopathy (Chronic) Lumbar disc disease with radiculopathy (Chronic) Allergies No Known Allergies Allergy (Verified 02/11/19 10:23) Home Medications: Ambulatory Orders Medication Instructions Recorded Methocarbamol [Robaxin] 500 mg PO QHS 01/07/17 Ondansetron [Zofran Odt] 4 mg PO Q8H PRN PRN #10 tablet 06/30/17 Dextroamp-Amphet ER 30 mg Cap 30 mg PO BID 01/17/19 Oxycodone [Oxyir] 5 mg PO BID 01/17/19 Gabapentin [Neurontin] 300 mg PO BID 02/11/19 Warfarin [Coumadin] 7.5 mg PO DAILY 02/11/19 Surgical History: cholecystectomy, - - Foot surgery, Finger surgery, Testicular surgery, ? EGD/Lazaro. Psychiatric History: Attn. deficit disorder Lives: Spouse/ Significant Other, With Family Smoking Status: Never smoker Tobacco Use: Non-smoker Alcohol: None Drugs: None - *Family History Maternal History Items: COPD, Hypertension Paternal History Items: Cancer Review of Systems Constitutional: Reports: Anorexia, Malaise, Weakness, Fatigue. Denies: Chills, Fever, Weight Change Eyes: Denies: Blurred vision, Cataracts, Conjunctivae Inflammation, Double vision, Pain, Redness, Vision Change HEENT: Denies: Difficulty Hearing, Difficulty Swallowing, Head Aches, Hearing Ch anges, Post Nasal Drip, Sinus Congestion, Sinus Drainage Cardiovascular: Denies: Chest Pain, Claudication, Orthopnea, Palpitations, Paroxysmal Noc. Dyspnea Respiratory: Denies: Cough, Hemoptysis, Shortness of breath at rest, Shortness of breath upon exertion, Sputum production Gastrointestinal: Denies: Abdominal Pain, Constipation, Hematemesis, Nausea, Vomiting Genitourinary: Denies: Dysuria, Frequency, Incontinence Musculoskeletal: Denies: Joint Pain, Joint stiffness, Joint swelling, Joint Tenderness Skin: Reports: - - Redness of the right lower extremity with differential warmth from the foot to the lower half of the right leg. Denies: Wounds Neurological: Denies: Numbness, Tingling, Focal weakness Psychiatric: Denies: Anxiety, Depression, Homicidal Ideations, Suicidal Ideations Hematologic/ Lymphatic: Denies: Easy Bruising, Easy Bleeding VTE Information - Inpt Only VTE Present on Admission: No VTE Pharm Prophylaxis ordered?: Yes - Physical Exam General: Alert, Oriented x3, Cooperative, No apparent distress HEENT: Atraumatic, PERRLA, EOMI, Normocephalic Oral: Moist Mucosa Neck: Supple Lungs: Clear to auscultation, Normal air movement Cardiovascular: Regular rate, Regular Rhythm, Normal S1, Normal S2, No murmurs Abdomen: Bowel Sounds Present, Soft, Non Tender, Non-Distended, No Hepato- splenomegaly Extremities: Edema, - - Redness of the right lower extremity with differential warmth from the foot to the lower half of the right leg Skin: No rashes Musculoskeletal: No Tenderness to Palpation of Joints or Extremities Lymphatic: No Cervical, Supraclavicular, or Inguinal Adenopathy Neurological: Cranial nerves II-XII grossly intact, Neuro grossly intact Psych/Mental Status: Normal Affect, Appropriate Vital Signs Temp Pulse Resp BP Pulse Ox 97.9 F 101 H 18 159/77 H 99 02/11/19 10:23 02/11/19 10:23 02/11/19 10:23 02/11/19 10:23 02/11/19 10:23 Oxygen Delivery Method Room Air Weight: 139.706 kg Body Mass Index (BMI) 38.5 Finger Stick Blood Glucose 106 Laboratory Tests Past 24 Hrs 02/11/19 02/11/19 02/11/19 10:55 10:55 10:55 WBC 9.0 RBC 4.42 L Hgb 13.6 Hct 39.0 L MCV 88.2 MCH 30.8 MCHC 34.9 RDW 14.8 H RDW Differential 48.0 H Plt Count 74 L MPV 10.8 Immature Gran % (Auto) 0.100 Neut % (Auto) 82.5 H Lymph % (Auto) 7.4 L [place] % (Auto) 6.9 Eos % (Auto) 2.8 Baso % (Auto) 0.3 Absolute Neuts (auto) 7.5 Absolute Lymphs (auto) 0.67 L Total Counted Not Reportable PT 24.6 H INR 2.2 Sodium 140 Potassium 3.6 Chloride 108 H Carbon Dioxide 28.0 Anion Gap 4 L BUN 7 Creatinine 0.76 Estim Creat Clear Calc 148.25 Est GFR (MDRD) Af Amer 143 Est GFR (MDRD) Non-Af 118 BUN/Creatinine Ratio 9.2 L Glucose 134 H Lactic Acid Calcium 8.4 L 02/11/19 10:55 WBC RBC Hgb Hct MCV MCH MCHC RDW RDW Differential Plt Count MPV Immature Gran % (Auto) Neut % (Auto) Lymph % (Auto) [place] % (Auto) Eos % (Auto) Baso % (Auto) Absolute Neuts (auto) Absolute Lymphs (auto) Total Counted PT INR Sodium Potassium Chloride Carbon Dioxide Anion Gap BUN Creatinine Estim Creat Clear Calc Est GFR (MDRD) Af Amer Est GFR (MDRD) Non-Af BUN/Creatinine Ratio Glucose Lactic Acid 1.6 Calcium Assessment/Plan All Active Problems Cellulitis (Acute) Intervertebral disc disorder with radiculopathy of lumbar region (Acute) DVT (deep venous thrombosis) (Acute) Malnutrition (Resolved) Ulcer of left ankle (Resolved) Intervertebral disc disorder with radiculopathy of lumbar region (Acute) Cellulitis of left ankle (Resolved) 43 year old M with PMHx of cirrhosis due to Dean, morbid obesity, chronic back pain, recently discharged with who comes in with complaints of right lower extremity swelling and redness. 1. Right LLE cellulitis, recently diagnosed with right lower extremity DVT, started on Coumadin Blood cultures pending, will admit patient to the floor, elevate lower extremity, IV cefazolin, pain control with oxycodone and morphine IV 2. Thrombocytopenia, likely secondary to liver cirrhosis, patient is on Coumadin, continue to monitor 3. Cirrhosis secondary to DEAN, follows with GI in the [facility] 3. Chronic back pain, continue home pain regimen 4. Morbid obesity, BMI 38.7,diet and exercises recommended 5. DVT prophylaxis with Coumadin; INR therapeutic Code Visit Inpatient E&M: 01484 Init Hosp L3
--- NOTE | 2019-02-11 12:46 | CASEMGMT ---
RN CM Assessment Introduced role of RN CM to patient.? Patient is alert, oriented and able?to participate in RN CM Assessment. ?Care providers, pharmacy, and demographics verified. Presentation: Redness and swelling to Right Leg Admit Dx: Cellulitis Re-Admit: Yes, 01/17-01/24/19 for Cellulitis Barriers/Issues: None. Patient states was having some difficulty with getting his Rx filled for the walker after his last hospital DC, states that it was not in network at one place and the other did not carry walkers. States that he has a walker that he borrowed from someone he can use if needed. PCP: Joselyn Cummings Specialist: Patient states went [facility]. Preferred Pharmacy: [facility] Insurance: [facility] Rx Benefit:?Yes LNOK: Carmencita Ceballos LW/HPOA: No, Refused offered information Living Arrangements:? Lives with on 1st floor set up w/bathroom and bedroom. ADL?s: Independent with ambulation and ADL's Transportation: Patient drives, will drive upon DC DME: CPAP HHC: None SNF: None Goal: None, states does not feel he will need any help or equipment DC PLAN: Home with no anticipated needs identified at this time. JACQUELYN Fraser
[2019-02-11 13:02] VITALS: BMI 38.7
[2019-02-11 13:10] VITALS: BP 113/53; PULSE 91; RESP 20; TEMP 37.1; O2SAT 97
[2019-02-11] MEDS: oxyCODONE 5 MG Tablet PO ×2 (13:55→20:36)
[2019-02-11 14:32] LABS: AST(SGOT) 28 U/L (15-37); Alanine Aminotransfer ALT/SGPT 31 U/L (16-61); Albumin, Serum 3.4 g/dL (3.2-5.0); Alkaline Phosphatase 106 U/L (45-117); Bilirubin, Direct 0.34 mg/dL (0.00-0.30); Globulin 3.9 g/dL (2.2-4.2); Protein, Total 7.3 g/dL (6.4-8.2)
[2019-02-11] MEDS: Cefazolin 1 GM/50 ML BAG IV ×2 (15:06→22:12)
[2019-02-11] MEDS: Gabapentin 300 MG Capsule PO ×2 (15:06→22:12)
[2019-02-11] MEDS: Ondansetron ODT 4 MG Tablet PO (16:12)
[2019-02-11 17:25] VITALS: BP 129/58; PULSE 92; RESP 18; TEMP 37.6; O2SAT 97
[2019-02-11 22:04] VITALS: BP 121/63; PULSE 89; RESP 18; TEMP 37.3; O2SAT 97
[2019-02-11] MEDS: Methocarbamol 500 MG Tablet PO (22:12)
[2019-02-11 22:51] LABS: Bedside Glucose 113 mg/dL (70-110)
[2019-02-12] MEDS: 0.9% Normal Saline 1,000 ML 150 ML IV ×4 (00:54→23:30)
[2019-02-12 04:20] VITALS: BP 131/62; PULSE 93; RESP 18; TEMP 36.9; O2SAT 97
[2019-02-12] MEDS: oxyCODONE 5 MG Tablet PO ×5 (04:31→23:30)
[2019-02-12] MEDS: Cefazolin 1 GM/50 ML BAG IV ×3 (05:55→22:04)
[2019-02-12 06:33] LABS: International Normalized Ratio 3.3; Prothrombin Time (Protime)PT. 33.5 SECONDS (11.7-14.9)
[2019-02-12 06:38] LABS: Absolute Lymphocyte Count 0.97 X10^3/ul (0.83-4.51); Absolute Neutrophil Count 3.9 X10^3/uL (2.0-7.7); Basophil# 0.02 X10^3/uL; Basophil% 0.4 % (0-1); Eosinophil# 0.13 X10^3/uL; Eosinophils% 2.3 % (0-5); Hematocrit 34.8 % (40-54); Lymphocyte # 0.97 X10^3/ul (4.0); Mean Corp Hgb Conc 34.5 g/gl (32-36); Mean Corpuscular Hgb 30.7 pg (27.0-32.0); Mean Platelet Vol. 10.3 fl (6.2-12.0); Monocyte# 0.68 X10^3/uL; Neutrophil # 3.88 X10^3/uL (2.7-7.7); Neutrophil % 68.1 % (47-70); Platelet Count 50 K/mm3 (150-450); RBC Distribution Width CV 15.1 % (11.6-14.6); RBC Distribution Width SD 48.8 fl (35.1-43.9); Red Blood Count 3.91 M/mm3 (4.6-6.2); White Blood Count 5.7 K/mm3 (4.4-11.0)
[2019-02-12 06:42] LABS: POSITIVE COUNT NO; POSITIVE DIFFERENTIAL NO; POSITIVE MORPHOLOGY NO
[2019-02-12 06:46] LABS: ALB/GLOB Ratio 0.8 RATIO (0.9-2.4); AST(SGOT) 22 U/L (15-37); Alanine Aminotransfer ALT/SGPT 23 U/L (16-61); Albumin, Serum 2.7 g/dL (3.2-5.0); Alkaline Phosphatase 78 U/L (45-117); Anion Gap 2 (5-15); BUN 7 mg/dL (7-18); BUN/Creat Ratio 9.8 RATIO (10-20); Calcium,Total 7.7 mg/dL (8.5-10.1); Chloride 112 mmol/L (98-107); Creatinine, Serum 0.72 mg/dL (0.70-1.30); EST Glomerular Filtration Rate 127 mL/min (>60); Est Glom Filt Rate - Afr Amer 153 mL/min (>60); Estimated Creatinine Clearance 156.48 ml/min; Globulin 3.2 g/dL (2.2-4.2); Glucose 110 mg/dL (74-106); Potassium 3.7 mmol/L (3.5-5.1); Protein, Total 5.9 g/dL (6.4-8.2); Sodium Level 140 mmol/L (136-145)
[2019-02-12 09:42] LABS: Bedside Glucose 169 mg/dL (70-110)
[2019-02-12] MEDS: Gabapentin 300 MG Capsule PO ×2 (10:01→22:04)
[2019-02-12 10:15] VITALS: BP 126/54; PULSE 74; RESP 16; TEMP 36.9; O2SAT 98
[2019-02-12 11:31] LABS: Bedside Glucose 92 mg/dL (70-110)
--- NOTE | 2019-02-12 12:08 | PCM.PN.HOSP ---
Subjective: Patient was seen and examined. Denied any new complaints. Pain is much improved. No fevers or chills. Objective: Physical Exam General: Alert, Oriented x3, Cooperative, No apparent distress HEENT: Atraumatic, PERRLA, EOMI, Normocephalic Oral: Moist Mucosa Neck: Supple Lungs: Clear to auscultation, Normal air movement Cardiovascular: Regular rate, Regular Rhythm, Normal S1, Normal S2, No murmurs Abdomen: Bowel Sounds Present, Soft, Non Tender, Non-Distended, No Hepato-splenomegaly Extremities: Edema, - - Redness of the right lower extremity with differential warmth from the foot to the lower half of the right leg Skin: No rashes Musculoskeletal: No Tenderness to Palpation of Joints or Extremities Lymphatic: No Cervical, Supraclavicular, or Inguinal Adenopathy Neurological: Cranial nerves II-XII grossly intact, Neuro grossly intact Psych/Mental Status: Normal Affect, Appropriate Vitals/I&O's: Vital Signs Temp Pulse Resp BP Pulse Ox 98.4 F 74 16 126/54 H 98 02/12/19 10:15 02/12/19 10:15 02/12/19 10:15 02/12/19 10:15 02/12/19 10:15 Oxygen Delivery Method Room Air Weight: 142 kg Body Mass Index (BMI) 38.7 Finger Stick Blood Glucose 106 Intake and Output for Last 24 Hours 02/10/19 02/11/19 02/12/19 23:59 23:59 23:59 Intake Total 901 / 901 2500 / 2500 Output Total 450 / 450 1750 / 1750 Balance 451 / 451 750 / 750 Laboratory Results 02/11/19 10:30: Total Bilirubin 1.10 H, Direct Bilirubin 0.34 H, AST 28, ALT 31, Alkaline Phosphatase 106, Total Protein 7.3, Albumin 3.4, Globulin 3.9 02/11/19 22:11: POC Glucose 113 H 02/12/19 05:05: WBC 5.7, RBC 3.91 L, Hgb 12.0 L, Hct 34.8 L, MCV 89.0, MCH 30.7, MCHC 34.5, RDW 15.1 H, RDW Differential 48.8 H, Plt Count 50 L*, MPV 10.3, Immature Gran % (Auto) 0.200, Neut % (Auto) 68.1, Lymph % (Auto) 17.0 L, [place] % (Auto) 12.0 H, Eos % (Auto) 2.3, Baso % (Auto) 0.4, Absolute Neuts (auto) 3.9, Absolute Lymphs (auto) 0.97, Total Counted Not Reportable, Diff Path Review February02/12/19 06:05: Sodium 140, Potassium 3.7, Chloride 112 H, Carbon Dioxide 26.0, Anion Gap 2 L, BUN 7, Creatinine 0.72, Estim Creat Clear Calc 156.48, Est GFR (MDRD) Af Amer 153, Est GFR (MDRD) Non-Af 127, BUN/Creatinine Ratio 9.8 L, Glucose 110 H, Calcium 7.7 L, Total Bilirubin 1.90 H, AST 22, ALT 23, Alkaline Phosphatase 78, Total Protein 5.9 L, Albumin 2.7 L, Globulin 3.2, Albumin/Globulin Ratio 0.8 L 02/12/19 06:05: PT 33.5 H, INR 3.3 02/12/19 06:51: POC Glucose 169 H 02/12/19 11:29: POC Glucose 92 Current Medications Acetaminophen (Tylenol) 650 mg PO Q6H PRN PRN PRN Reason: Mild Pain (1-3)/Temp > 100.7 F Gabapentin (Neurontin) 300 mg PO BID [facility] Last Admin: 02/12/19 10:01 Dose: 300 mg Sodium Chloride () 1,000 mls @ 150 mls/hr IV .Q6H40M [facility] Last Admin: 02/12/19 08:39 Dose: 150 mls/hr Cefazolin Sodium () 1 gm in 50 mls @ 150 mls/hr IV Q8 [facility] Last Admin: 02/12/19 05:55 Dose: 150 mls/hr Insulin Human Lispro (Humalog Kwikpen (Bkc)) 0 unit SQ ACHS [facility]; Protocol Last Admin: 02/12/19 12:02 Dose: Not Given Methocarbamol (Robaxin) 500 mg PO QHS [facility] Last Admin: 02/11/19 22:12 Dose: 500 mg Morphine Sulfate () 1 mg IV Q4H PRN PRN PRN Reason: SEVERE PAIN (6-10/10) Non-Formulary Medication (Dextroamp-Amphet Er 30 Mg Cap) 30 mg PO BID [facility] Ondansetron HCl (Zofran Odt) 4 mg PO Q8H PRN PRN PRN Reason: NAUSEA Last Admin: 02/11/19 16:12 Dose: 4 mg Oxycodone HCl (Oxyir) 5 mg PO Q4H PRN PRN PRN Reason: SEVERE PAIN (6-10/10) Last Admin: 02/12/19 10:01 Dose: 5 mg Sodium Chloride () 5 - 15 ml IV UD PRN PRN Reason: SALINE FLUSH Medical Necessity - Tobacco Use Smoking Status: Never smoker Tobacco Use: Non-smoker Assessment/Plan All Active Problems Cellulitis (Acute) Intervertebral disc disorder with radiculopathy of lumbar region (Acute) DVT (deep venous thrombosis) (Acute) Malnutrition (Resolved) Ulcer of left ankle (Resolved) Intervertebral disc disorder with radiculopathy of lumbar region (Acute) Cellulitis of left ankle (Resolved) 43 year old M with PMHx 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 1. Right LLE cellulitis, recently diagnosed with right lower extremity DVT, started on Coumadin Blood cultures pending, continue to elevate lower extremity, IV cefazolin, pain control with oxycodone and morphine IV 2. Thrombocytopenia, likely secondary to liver cirrhosis, platelets dropped to 50,000, no signs of bleeding, continue to monitor We will recheck labs tomorrow, if persistent, will switch antibiotics 3. Cirrhosis secondary to DEAN, follows with GI in the [facility] 3. Chronic back pain, continue home pain regimen 4. Morbid obesity, BMI 38.7,diet and exercises recommended 5. DVT prophylaxis with Coumadin; INR supratherapeutic - coumadin on hold for today Code Visit Inpatient E&M: 60977 Subs Hosp L2
[2019-02-12 14:43] VITALS: BP 140/58; PULSE 90; RESP 18; TEMP 36.7; O2SAT 98
[2019-02-12 20:24] VITALS: BP 145/72; PULSE 84; RESP 16; TEMP 37.1; O2SAT 100
[2019-02-12] MEDS: Methocarbamol 500 MG Tablet PO (22:04)
[2019-02-13 02:24] VITALS: BP 120/57; PULSE 90; RESP 16; TEMP 37; O2SAT 95
[2019-02-13] MEDS: Cefazolin 1 GM/50 ML BAG IV ×3 (05:17→21:19)
[2019-02-13 06:30] LABS: Absolute Lymphocyte Count 0.91 X10^3/ul (0.83-4.51); Absolute Neutrophil Count 2.3 X10^3/uL (2.0-7.7); Basophil# 0.03 X10^3/uL; Basophil% 0.7 % (0-1); Eosinophil# 0.23 X10^3/uL; Eosinophils% 5.7 % (0-5); Hematocrit 34.1 % (40-54); Hemoglobin 11.9 g/dl (13.0-16.5); Lymphocyte # 0.91 X10^3/ul (4.0); Lymphocyte % 22.5 % (19-41); Mean Corp Hgb Conc 34.9 g/gl (32-36); Mean Corpuscular Hgb 30.8 pg (27.0-32.0); Mean Corpuscular Volume 88.3 fL (80-94); Mean Platelet Vol. 11.3 fl (6.2-12.0); Monocyte# 0.58 X10^3/uL; Monocyte% 14.3 % (0-10); Neutrophil % 56.8 % (47-70); Platelet Count 53 K/mm3 (150-450); RBC Distribution Width CV 14.9 % (11.6-14.6); RBC Distribution Width SD 48.3 fl (35.1-43.9); Red Blood Count 3.86 M/mm3 (4.6-6.2); White Blood Count 4.1 K/mm3 (4.4-11.0)
[2019-02-13 06:31] LABS: International Normalized Ratio 2.6; Prothrombin Time (Protime)PT. 27.8 SECONDS (11.7-14.9)
[2019-02-13 06:33] LABS: POSITIVE COUNT NO; POSITIVE DIFFERENTIAL NO; POSITIVE MORPHOLOGY NO
[2019-02-13] MEDS: 0.9% Normal Saline 1,000 ML 150 ML IV (06:41)
[2019-02-13 06:52] LABS: Anion Gap 7 (5-15); BUN 6 mg/dL (7-18); BUN/Creat Ratio 9.4 RATIO (10-20); Calcium,Total 7.4 mg/dL (8.5-10.1); Chloride 110 mmol/L (98-107); Creatinine, Serum 0.64 mg/dL (0.70-1.30); EST Glomerular Filtration Rate 145 mL/min (>60); Est Glom Filt Rate - Afr Amer 175 mL/min (>60); Estimated Creatinine Clearance 176.04 ml/min; Glucose 102 mg/dL (74-106); Potassium 3.7 mmol/L (3.5-5.1); Sodium Level 141 mmol/L (136-145)
[2019-02-13] MEDS: oxyCODONE 5 MG Tablet PO ×3 (08:08→21:16)
[2019-02-13] MEDS: Gabapentin 300 MG Capsule PO ×2 (08:09→21:16)
[2019-02-13 08:23] VITALS: BP 123/64; PULSE 88; RESP 16; TEMP 36.7; O2SAT 98
[2019-02-13 11:15] VITALS: BP 116/51; PULSE 77; RESP 16; TEMP 36.7; O2SAT 98
--- NOTE | 2019-02-13 11:52 | PCM.PN.HOSP ---
Subjective: Patient was seen and examined. He feels much improved. No fevers or chills. Swelling and redness of the lower extremities improving. Review of systems is negative Objective: Physical Exam General: Alert, Oriented x3, Cooperative, No apparent distress HEENT: Atraumatic, PERRLA, EOMI, Normocephalic Oral: Moist Mucosa Neck: Supple Lungs: Clear to auscultation, Normal air movement Cardiovascular: Regular rate, Regular Rhythm, Normal S1, Normal S2, No murmurs Abdomen: Bowel Sounds Present, Soft, Non Tender, Non-Distended, No Hepato-splenomegaly Extremities: Edema, - - Improving redness of the right lower extremity with differential warmth from the foot to the lower half of the right leg, wrinkles of skin of leg from resolving edema. Skin: No rashes Musculoskeletal: No Tenderness to Palpation of Joints or Extremities Lymphatic: No Cervical, Supraclavicular, or Inguinal Adenopathy Neurological: Cranial nerves II-XII grossly intact, Neuro grossly intact Psych/Mental Status: Normal Affect, Appropriate Vitals/I&O's: Vital Signs Temp Pulse Resp BP Pulse Ox 98.1 F 77 16 116/51 L 98 02/13/19 11:15 02/13/19 11:15 02/13/19 11:15 02/13/19 11:15 02/13/19 11:15 Oxygen Delivery Method Room Air Weight: 139.8 kg Body Mass Index (BMI) 38.7 Finger Stick Blood Glucose 106 Intake and Output for Last 24 Hours 02/11/19 02/12/19 02/13/19 23:59 23:59 23:59 Intake Total 901 / 901 6127 / 6127 1799 / 1799 Output Total 450 / 450 1750 / 1750 Balance 451 / 451 4377 / 4377 1799 / 1799 Microbiology Past 72 Hours 02/11/19 11:05 Blood Culture (Wb) - Anticubital Right Blood Culture - Preliminary No growth in 48 hours. 02/11/19 10:55 Blood Culture (Wb) - Left Forearm Blood Culture - Preliminary No growth in 48 hours. Laboratory Results 02/13/19 05:35: PT 27.8 H, INR 2.6 02/13/19 05:35: WBC 4.1 L, RBC 3.86 L, Hgb 11.9 L, Hct 34.1 L, MCV 88.3, MCH 30.8, MCHC 34.9, RDW 14.9 H, RDW Differential 48.3 H, Plt Count 53 L, MPV 11.3, Immature Gran % (Auto) 0.000, Neut % (Auto) 56.8, Lymph % (Auto) 22.5, [place] % (Auto) 14.3 H, Eos % (Auto) 5.7 H, Baso % (Auto) 0.7, Absolute Neuts (auto) 2.3, Absolute Lymphs (auto) 0.91, Total Counted Not Reportable 02/13/19 05:35: Sodium 141, Potassium 3.7, Chloride 110 H, Carbon Dioxide 24.0, Anion Gap 7, BUN 6 L, Creatinine 0.64 L, Estim Creat Clear Calc 176.04, Est GFR (MDRD) Af Amer 175, Est GFR (MDRD) Non-Af 145, BUN/Creatinine Ratio 9.4 L, Glucose 102, Calcium 7.4 L Current Medications Acetaminophen (Tylenol) 650 mg PO Q6H PRN PRN PRN Reason: Mild Pain (1-3)/Temp > 100.7 F Gabapentin (Neurontin) 300 mg PO BID [facility] Last Admin: 02/13/19 08:09 Dose: 300 mg Cefazolin Sodium () 1 gm in 50 mls @ 150 mls/hr IV Q8 [facility] Last Admin: 02/13/19 05:17 Dose: 150 mls/hr Methocarbamol (Robaxin) 500 mg PO QHS [facility] Last Admin: 02/12/19 22:04 Dose: 500 mg Morphine Sulfate () 1 mg IV Q4H PRN PRN PRN Reason: SEVERE PAIN (6-10/10) Non-Formulary Medication (Dextroamp-Amphet Er 30 Mg Cap) 30 mg PO BID [facility] Ondansetron HCl (Zofran Odt) 4 mg PO Q8H PRN PRN PRN Reason: NAUSEA Last Admin: 02/11/19 16:12 Dose: 4 mg Oxycodone HCl (Oxyir) 5 mg PO Q4H PRN PRN PRN Reason: SEVERE PAIN (6-10/10) Last Admin: 02/13/19 08:08 Dose: 5 mg Sodium Chloride () 5 - 15 ml IV UD PRN PRN Reason: SALINE FLUSH Warfarin Sodium (Coumadin (Pbkc)) 7.5 mg PO DAILY@1700 [facility] Medical Necessity - Tobacco Use Smoking Status: Never smoker Tobacco Use: Non-smoker Assessment/Plan All Active Problems Cellulitis (Acute) Intervertebral disc disorder with radiculopathy of lumbar region (Acute) DVT (deep venous thrombosis) (Acute) Malnutrition (Resolved) Ulcer of left ankle (Resolved) Intervertebral disc disorder with radiculopathy of lumbar region (Acute) Cellulitis of left ankle (Resolved) 43 year old M with PMHx 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 1. Right LLE cellulitis, recently diagnosed with right lower extremity DVT, started on Coumadin Blood cultures negative, on IV cefazolin, continue to elevate lower extremity, pain control with oxycodone and morphine IV 2. Thrombocytopenia, likely secondary to liver cirrhosis, platelets count is 53,000, no signs of bleeding, continue to monitor 3. Cirrhosis secondary to DEAN, follows with GI in the [facility] 4. Chronic back pain, continue home pain regimen 5. Morbid obesity, BMI 38.7,diet and exercises recommended 6. DVT prophylaxis with Coumadin; INR is therapeutic Code Visit Inpatient E&M: 86089 Subs Hosp L2
--- NOTE | 2019-02-13 11:55 | PN_ITS ---
Subjective: Patient was seen and examined. He feels much improved. No fevers or chills. Swelling and redness of the lower extremities improving. Review of systems is negative Objective: Physical Exam General: Alert, Oriented x3, Cooperative, No apparent distress HEENT: Atraumatic, PERRLA, EOMI, Normocephalic Oral: Moist Mucosa Neck: Supple Lungs: Clear to auscultation, Normal air movement Cardiovascular: Regular rate, Regular Rhythm, Normal S1, Normal S2, No murmurs Abdomen: Bowel Sounds Present, Soft, Non Tender, Non-Distended, No Hepato- splenomegaly Extremities: Edema, - - Improving redness of the right lower extremity with differential warmth from the foot to the lower half of the right leg, wrinkles of skin of leg from resolving edema. Skin: No rashes Musculoskeletal: No Tenderness to Palpation of Joints or Extremities Lymphatic: No Cervical, Supraclavicular, or Inguinal Adenopathy Neurological: Cranial nerves II-XII grossly intact, Neuro grossly intact Psych/Mental Status: Normal Affect, Appropriate Vitals/I&O's: Vital Signs Temp Pulse Resp BP Pulse Ox 98.1 F 77 16 116/51 L 98 02/13/19 11:15 02/13/19 11:15 02/13/19 11:15 02/13/19 11:15 02/13/19 11:15 Oxygen Delivery Method Room Air Weight: 139.8 kg Body Mass Index (BMI) 38.7 Finger Stick Blood Glucose 106 Intake and Output for Last 24 Hours 02/11/19 02/12/19 02/13/19 23:59 23:59 23:59 Intake Total 901 / 901 6127 / 6127 1799 / 1799 Output Total 450 / 450 1750 / 1750 Balance 451 / 451 4377 / 4377 1799 / 1799 Microbiology Past 72 Hours 02/11/19 11:05 Blood Culture (Wb) - Anticubital Right Blood Culture - Preliminary No growth in 48 hours. 02/11/19 10:55 Blood Culture (Wb) - Left Forearm Blood Culture - Preliminary No growth in 48 hours. Laboratory Results 02/13/19 05:35: PT 27.8 H, INR 2.6 02/13/19 05:35: WBC 4.1 L, RBC 3.86 L, Hgb 11.9 L, Hct 34.1 L, MCV 88.3, MCH 30.8, MCHC 34.9, RDW 14.9 H, RDW Differential 48.3 H, Plt Count 53 L, MPV 11.3, Immature Gran % (Auto) 0.000, Neut % (Auto) 56.8, Lymph % (Auto) 22.5, [place] % (Auto) 14.3 H, Eos % (Auto) 5.7 H, Baso % (Auto) 0.7, Absolute Neuts (auto) 2.3, Absolute Lymphs (auto) 0.91, Total Counted Not Reportable 02/13/19 05:35: Sodium 141, Potassium 3.7, Chloride 110 H, Carbon Dioxide 24.0, Anion Gap 7, BUN 6 L, Creatinine 0.64 L, Estim Creat Clear Calc 176.04, Est GFR (MDRD) Af Amer 175, Est GFR (MDRD) Non-Af 145, BUN/Creatinine Ratio 9.4 L, Glucose 102, Calcium 7.4 L Current Medications Acetaminophen (Tylenol) 650 mg PO Q6H PRN PRN PRN Reason: Mild Pain (1-3)/Temp > 100.7 F Gabapentin (Neurontin) 300 mg PO BID [facility] Last Admin: 02/13/19 08:09 Dose: 300 mg Cefazolin Sodium () 1 gm in 50 mls @ 150 mls/hr IV Q8 [facility] Last Admin: 02/13/19 05:17 Dose: 150 mls/hr Methocarbamol (Robaxin) 500 mg PO QHS [facility] Last Admin: 02/12/19 22:04 Dose: 500 mg Morphine Sulfate () 1 mg IV Q4H PRN PRN PRN Reason: SEVERE PAIN (6-10/10) Non-Formulary Medication (Dextroamp-Amphet Er 30 Mg Cap) 30 mg PO BID [facility] Ondansetron HCl (Zofran Odt) 4 mg PO Q8H PRN PRN PRN Reason: NAUSEA Last Admin: 02/11/19 16:12 Dose: 4 mg Oxycodone HCl (Oxyir) 5 mg PO Q4H PRN PRN PRN Reason: SEVERE PAIN (6-10/10) Last Admin: 02/13/19 08:08 Dose: 5 mg Sodium Chloride () 5 - 15 ml IV UD PRN PRN Reason: SALINE FLUSH Warfarin Sodium (Coumadin (Pbkc)) 7.5 mg PO DAILY@1700 [facility] Medical Necessity - Tobacco Use Smoking Status: Never smoker Tobacco Use: Non-smoker Assessment/Plan All Active Problems Cellulitis (Acute) Intervertebral disc disorder with radiculopathy of lumbar region (Acute) DVT (deep venous thrombosis) (Acute) Malnutrition (Resolved) Ulcer of left ankle (Resolved) Intervertebral disc disorder with radiculopathy of lumbar region (Acute) Cellulitis of left ankle (Resolved) 43 year old M with PMHx 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 1. Right LLE cellulitis, recently diagnosed with right lower extremity DVT, started on Coumadin Blood cultures negative, on IV cefazolin, continue to elevate lower extremity, pain control with oxycodone and morphine IV 2. Thrombocytopenia, likely secondary to liver cirrhosis, platelets count is 53,000, no signs of bleeding, continue to monitor 3. Cirrhosis secondary to DEAN, follows with GI in the [facility] 4. Chronic back pain, continue home pain regimen 5. Morbid obesity, BMI 38.7,diet and exercises recommended 6. DVT prophylaxis with Coumadin; INR is therapeutic Code Visit Inpatient E&M: 29048 Subs Hosp L2
[2019-02-13] MEDS: 0.9% NaCl Peripheral Flush Adult/Peds IV ×2 (13:41→21:19)
[2019-02-13 14:15] VITALS: BP 135/66; PULSE 91; RESP 16; TEMP 37.1; O2SAT 98
[2019-02-13 19:59] VITALS: BP 147/71; PULSE 82; RESP 16; TEMP 37.3; O2SAT 98
[2019-02-13] MEDS: Methocarbamol 500 MG Tablet PO (21:16)
[2019-02-14 02:31] VITALS: BP 134/62; PULSE 81; RESP 16; TEMP 37.1; O2SAT 94
[2019-02-14] MEDS: 0.9% NaCl Peripheral Flush Adult/Peds IV ×2 (05:19→07:16)
[2019-02-14] MEDS: Cefazolin 1 GM/50 ML BAG IV (05:20)
[2019-02-14] MEDS: oxyCODONE 5 MG Tablet PO (05:20)
[2019-02-14 05:47] LABS: Absolute Lymphocyte Count 1.02 X10^3/ul (0.83-4.51); Absolute Neutrophil Count 1.9 X10^3/uL (2.0-7.7); Basophil# 0.03 X10^3/uL; Basophil% 0.8 % (0-1); Eosinophil# 0.22 X10^3/uL; Eosinophils% 6.1 % (0-5); Hematocrit 35.2 % (40-54); Hemoglobin 12.3 g/dl (13.0-16.5); Lymphocyte # 1.02 X10^3/ul (4.0); Lymphocyte % 28.1 % (19-41); Mean Corp Hgb Conc 34.9 g/gl (32-36); Mean Corpuscular Hgb 30.8 pg (27.0-32.0); Mean Corpuscular Volume 88.2 fL (80-94); Mean Platelet Vol. 11.4 fl (6.2-12.0); Monocyte# 0.42 X10^3/uL; Monocyte% 11.6 % (0-10); Neutrophil # 1.93 X10^3/uL (2.7-7.7); Neutrophil % 53.1 % (47-70); Platelet Count 64 K/mm3 (150-450); RBC Distribution Width CV 14.9 % (11.6-14.6); RBC Distribution Width SD 48.2 fl (35.1-43.9); Red Blood Count 3.99 M/mm3 (4.6-6.2); White Blood Count 3.6 K/mm3 (4.4-11.0)
[2019-02-14 05:50] LABS: POSITIVE COUNT NO; POSITIVE DIFFERENTIAL NO; POSITIVE MORPHOLOGY NO
[2019-02-14 06:12] LABS: ALB/GLOB Ratio 0.7 RATIO (0.9-2.4); AST(SGOT) 26 U/L (15-37); Alanine Aminotransfer ALT/SGPT 23 U/L (16-61); Albumin, Serum 2.6 g/dL (3.2-5.0); Alkaline Phosphatase 92 U/L (45-117); Anion Gap 5 (5-15); BUN 8 mg/dL (7-18); BUN/Creat Ratio 11.8 RATIO (10-20); Calcium,Total 7.8 mg/dL (8.5-10.1); Chloride 107 mmol/L (98-107); Creatinine, Serum 0.68 mg/dL (0.70-1.30); EST Glomerular Filtration Rate 134 mL/min (>60); Est Glom Filt Rate - Afr Amer 163 mL/min (>60); Estimated Creatinine Clearance 165.69 ml/min; Globulin 3.7 g/dL (2.2-4.2); Glucose 114 mg/dL (74-106); Potassium 3.9 mmol/L (3.5-5.1); Protein, Total 6.3 g/dL (6.4-8.2); Sodium Level 139 mmol/L (136-145)
[2019-02-14 07:26] LABS: International Normalized Ratio 2.1; Prothrombin Time (Protime)PT. 23.4 SECONDS (11.7-14.9)
[2019-02-14 07:38] VITALS: BP 116/71; PULSE 72; RESP 18; TEMP 36.7; O2SAT 97
[2019-02-14 07:39] VITALS: PULSE 72
--- NOTE | 2019-02-14 08:09 | DS.PCM_ITS ---
Discharge Date and Diagnosis Date of Admission: 02/11/19 Date of Discharge: 02/14/19 - Secondary Discharge Diagnosis Chronic Problems Liver cirrhosis secondary to DEAN (Chronic) Thrombocytopenia (Chronic) Morbid obesity due to excess calories (Chronic) Diabetes mellitus with complication (Chronic) Edema (Chronic) Venous insufficiency (Chronic) Other intervertebral disc degeneration, lumbar region (Chronic) Other intervertebral disc degeneration, lumbar region (Chronic) Spinal stenosis of lumbar region with neurogenic claudication (Chronic) Spinal stenosis of lumbar region with neurogenic claudication (Chronic) 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 1. Right LLE cellulitis, recently diagnosed with right lower extremity DVT, started on Coumadin Blood cultures negative, on IV cefazolin. Patient on conservative management with elevation of lower extremity, pain control with oxycodone and morphine IV. Patient is discharged on cefadroxil for 5 more days to complete a total of 7 days of antibiotic treatment. 2. Thrombocytopenia, likely secondary to liver cirrhosis, platelets count is 53,000, no signs of bleeding, continue to monitor. Patient platelet count is holding up on Coumadin. 3. Cirrhosis secondary to DEAN, follows with GI in the [facility] 4. Chronic back pain, with lumbar degenerative disc disorder. continue home pain regimen. Patient follows Dr. Beck. Patient asked for oxycodone pr escription for 2 to 3 weeks was told that he can give for 2 or 3 days as he needs to get more from pain doctor. Prescription for 7 tablets of oxycodone 5 mg twice daily given. Patient also complained of right lower leg pain 5. Morbid obesity, BMI 38.7,diet and exercises recommended 6. DVT prophylaxis with Coumadin; INR is therapeutic Discharge medication reconciliation done. Discharge follow-up instructions completed. Discharge process discussed with the patient and all questions were answered to patient's satisfaction. Total time spent, exact 35 minutes on discharge meds reconciliation, examination, review of imaging and blood test and discussion with the patient on follow-up instructions. Subjective: Seen and examined. Right lower extremity redness, tenderness and induration getting better. This entire history of right lower leg DVT diagnosed about a month ago and is on Coumadin. Patient is supposed to take Coumadin for a total of 3 months durati on. 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 - Physical Exam General: Alert, Oriented x3, Cooperative HEENT: Atraumatic, PERRLA, EOMI, Normocephalic Oral: Moist Mucosa Neck: Supple, No JVD, Negative Carotid Bruits Lungs: Clear to auscultation, No rhonchi, No wheeze, No rales, Diminished - Air entry is diminished in bilateral lung bases. Cardiovascular: Regular rate, Regular Rhythm, Normal S1, Normal S2, No murmurs Abdomen: Bowel Sounds Present, Soft, Non Tender, Non-Distended Extremities: Capillary Refill Less than 3 Seconds, Edema Skin: No breakdown, Rash Present - Erythematous rash present. Extent of c ellulitis getting better. Musculoskeletal: Arthritic Changes, Tenderness - Mild tenderness present in right calf. Tenderness present also lumbar spine. Lymphatic: No Cervical, Supraclavicular, or Inguinal Adenopathy Neurological: Cranial nerves II-XII grossly intact, Deep Tendon Reflexes 2+/4 and Symmetrical, Neuro grossly intact Psych/Mental Status: Normal Affect, Appropriate Vital Signs Temp Pulse Resp BP Pulse Ox 98.1 F 72 18 116/71 97 02/14/19 07:38 02/14/19 07:39 02/14/19 07:38 02/14/19 07:38 02/14/19 07:38 Oxygen Delivery Method Room Air Weight: 299 lb 9.731 oz Body Mass Index (BMI) 38.7 Finger Stick Blood Glucose 106 Intake and Output for Last 24 Hours 02/12/19 02/13/19 02/14/19 23:59 23:59 23:59 Intake Total 6127 / 6127 2449 / 2449 1302 / 1302 Output Total 1750 / 1750 Balance 4377 / 4377 2449 / 2449 1302 / 1302 Microbiology Past 72 Hours 02/11/19 11:05 Blood Culture - Preliminary Blood Culture (Wb) - Anticubital Right No growth in 48 hours. 02/11/19 10:55 Blood Culture - Preliminary Blood Culture (Wb) - Left Forearm No growth in 48 hours. Laboratory Tests Past 24 Hrs 02/14/19 02/14/19 02/14/19 05:20 05:20 07:10 WBC 3.6 L RBC 3.99 L Hgb 12.3 L Hct 35.2 L MCV 88.2 MCH 30.8 MCHC 34.9 RDW 14.9 H RDW Differential 48.2 H Plt Count 64 L MPV 11.4 Immature Gran % (Auto) 0.300 Neut % (Auto) 53.1 Lymph % (Auto) 28.1 [place] % (Auto) 11.6 H Eos % (Auto) 6.1 H Baso % (Auto) 0.8 Absolute Neuts (auto) 1.9 L Absolute Lymphs (auto) 1.02 Total Counted Not Reportable PT 23.4 H INR 2.1 Sodium 139 Potassium 3.9 Chloride 107 Carbon Dioxide 27.0 Anion Gap 5 BUN 8 Creatinine 0.68 L Estim Creat Clear Calc 165.69 Est GFR (MDRD) Af Amer 163 Est GFR (MDRD) Non-Af 134 BUN/Creatinine Ratio 11.8 Glucose 114 H Calcium 7.8 L Total Bilirubin 0.80 AST 26 ALT 23 Alkaline Phosphatase 92 Total Protein 6.3 L Albumin 2.6 L Globulin 3.7 Albumin/Globulin Ratio 0.7 L Discharge Activity: May Not Drive - for 1 week for Lower ext cellulitis Call your doctor if you observe: Fever of 101 or Higher, Inability to urinate, Inability to have a bowel movement, Shortness of breath, Fainting spells, Swelling in the ankles, Increased palpitations (irregular heartbeat), Uncontrolled pain Home Medications: Medications to take at Discharge Methocarbamol [Robaxin] 500 mg PO QHS 01/07/17 Dextroamp-Amphet ER 30 mg Cap 30 mg PO BID 01/17/19 Gabapentin [Neurontin] 300 mg PO BID 02/11/19 Warfarin [Coumadin] 7.5 mg PO DAILY 02/11/19 Cefadroxil [Duracef] 500 mg PO BID #10 capsule 02/14/19 Ondansetron [Zofran Odt] 4 mg PO Q8H PRN PRN #20 tablet 02/14/19 Oxycodone [Oxyir] 5 mg PO BID #7 tablet 02/14/19 Following Prescrptions Were Given to Patient: Ondansetron [Zofran Odt] 4 mg PO Q8H PRN PRN #20 tablet PRN Reason: Nausea/Vomiting Cefadroxil [Duracef] 500 mg PO BID #10 capsule Oxycodone [Oxyir] 5 mg PO BID #7 tablet Primary Care Physician: Joselyn Cummings DO [Primary Care Provider] - Please follow up with your Primary Care Physician in: in 2 weeks Medical Necessity - Tobacco Use Smoking Status: Never smoker Tobacco Use: Non-smoker Meaningful Use Info Meaningful Use Diagnoses (Choose all that apply): None applicable Code Visit Inpatient E&M: 29775 Disch Hosp
--- NOTE | 2019-02-14 08:09 | DCINST_ITS ---
You will use the following diet at home:: Calorie/Carbohydrate Controlled (specify 1200, 1400, etc) Your food should be the consistency of: Regular Discharge Activity: May Not Drive - for 1 week for Lower ext cellulitis Call your doctor if you observe: Fever of 101 or Higher, Inability to urinate, Inability to have a bowel movement, Shortness of breath, Fainting spells, Swelling in the ankles, Increased palpitations (irregular heartbeat), Uncontrolled pain Allergies/Adverse Reactions: Allergies No Known Allergies Allergy (Verified 02/11/19 10:23) Medications to take at Discharge Methocarbamol [Robaxin] 500 mg PO QHS 01/07/17 Ondansetron [Zofran Odt] 4 mg PO Q8H PRN PRN #10 tablet 06/30/17 Dextroamp-Amphet ER 30 mg Cap 30 mg PO BID 01/17/19 Oxycodone [Oxyir] 5 mg PO BID 01/17/19 Gabapentin [Neurontin] 300 mg PO BID 02/11/19 Warfarin [Coumadin] 7.5 mg PO DAILY 02/11/19 Cefadroxil [Duracef] 500 mg PO BID #10 capsule 02/14/19 The following prescriptions were given: Cefadroxil [Duracef] 500 mg PO BID #10 capsule Primary Care Physician: Joselyn Cummings DO [Primary Care Provider] - Please follow up with your Primary Care Physician in: in 2 weeks Test Results: Test results from this visit will be discussed in further detail at your follow- up appointment, if applicable.
[2019-02-14] MEDS: Gabapentin 300 MG Capsule PO (09:11)
[2019-02-14 12:52] LABS: Pathologist Review Reviewed
--- NOTE | 2019-02-15 12:18 | CASEMGMT ---
MARIA EUGENIA CM DC PHONE CALL DC DATE: 02/14/19 DC Disposition: Home LACE/STRATA: 01/21 attempted call to phone listed. Message machine did not have pt identifier. No message left. Rickie FERRELL RN ACM
== END 2019-02-14 10:17 | disposition home or self-care (01) | DRG 603 ==
LOC: ED 11:08 → MS3 12:34
PROVIDERS: Admitting Provider Internal Medicine; Emergency Provider Emergency Medicine; Family Provider Internal Medicine; PCP Internal Medicine; Referring Provider Internal Medicine; Visit Provider Internal Medicine
DX: L03.115 Cellulitis of right lower limb (principal); I82.491 Acute embolism and thrombosis of other specified deep vein of right lower extremity; K74.60 Unspecified cirrhosis of liver; K75.81 Nonalcoholic steatohepatitis (NASH); E66.01 Morbid (severe) obesity due to excess calories; Z68.38 Body mass index [BMI] 38.0-38.9, adult; D69.59 Other secondary thrombocytopenia; M51.36 Other intervertebral disc degeneration, lumbar region; Z79.01 Long term (current) use of anticoagulants; G89.29 Other chronic pain; M54.9 Dorsalgia, unspecified
CPT/HCPCS: 36415; 80048; 80053; 80076; 82962; 83605; 85025; 85610; 87040; 99284; J7030; A4216; J0295; J2405

== ENCOUNTER → 2019-02-25 20:32 | Outpatient (CLI) | payer OTHER, SELFPAY ==
[2019-02-11 13:02] VITALS: BMI 38.7
[2019-02-25 21:09] LABS: Amphetamine Urine VISTA POSITIVE (<1000 ng/mL); Barbiturate Urine VISTA NEGATIVE (< 200 ng/mL); Benzodiazepine Urine VISTA NEGATIVE (< 200 ng/mL); Cocaine Urine VISTA NEGATIVE (< 300 ng/mL); Ecstacy Urine VISTA NEGATIVE (< 500 ng/mL); Methadone Urine VISTA NEGATIVE (< 300 ng/mL); PCP Urine VISTA NEGATIVE (< 25 ng/mL); THC Urine VISTA NEGATIVE (< 50 ng/mL); Vista UDS pH Range 5
== END ==
LOC: LAB 20:34
PROVIDERS: Family Provider Internal Medicine; PCP Internal Medicine; Visit Provider Anesthesiology
DX: F11.20 Opioid dependence, uncomplicated (principal)
CPT/HCPCS: 80307

== ENCOUNTER → 2019-06-10 16:24 | Outpatient (CLI) | payer OTHER, SELFPAY ==
[2019-02-11 13:02] VITALS: BMI 38.7
[2019-06-10 17:24] LABS: Amphetamine Urine VISTA POSITIVE (<1000 ng/mL); Barbiturate Urine VISTA NEGATIVE (< 200 ng/mL); Benzodiazepine Urine VISTA NEGATIVE (< 200 ng/mL); Cocaine Urine VISTA NEGATIVE (< 300 ng/mL); Ecstacy Urine VISTA NEGATIVE (< 500 ng/mL); Methadone Urine VISTA NEGATIVE (< 300 ng/mL); PCP Urine VISTA NEGATIVE (< 25 ng/mL); THC Urine VISTA NEGATIVE (< 50 ng/mL); Vista UDS pH Range 8
== END ==
LOC: LAB 16:27
PROVIDERS: Family Provider Internal Medicine; PCP Internal Medicine; Referring Provider Anesthesiology; Visit Provider Anesthesiology
DX: F11.20 Opioid dependence, uncomplicated (principal)
CPT/HCPCS: 80307

== ENCOUNTER 2019-06-25 11:18 | Inpatient (IN) | payer OTHER, SELFPAY ==
[2019-02-11 13:02] VITALS: BMI 38.7
[2019-06-25] VITALS (10 sets, daily range): BP systolic 127–161; BP diastolic 61–71; PULSE 101–117; RESP 18–22; TEMP 36.8–37.9; O2SAT 94–99; BMI 41.2; BMI 41.9; BMI 42.0
--- NOTE | 2019-06-25 11:39 | VDLE_ITS ---
Reason For Study: Pain, Swelling RIGHT GSV is normal. CFV is compressible, spontaneous, phasic, competent and demonstrates normal augmentation. FV is compressible, spontaneous, phasic, competent and demonstrates normal augmentation. POP V is compressible, spontaneous, phasic, competent and demonstrates normal augmentation. T/P Trunk is compressible. PTV is compressible. RT PerV is compressible. Heterogenous, vascular structures noted Rt Groin measuring 1.23cm x 3.21cm and 1.50cm x 2.82cm Difficult to visualize Rt PeroV due to swelling. Procedure Exam performed portable in ED. A preliminary report was called and/or faxed to Dr. Fish. Interpretation Summary Deep veins of the right lower extremity are patent and compressible segmentally. There is no evidence of right lower extremity deep vein thrombosis. Valvular competence appears intact within the proximal deep venous system on the right . The right great saphenous vein appears patent and compressible segmentally. The right peroneal vein was not well visualized due to swelling. Several vascularized, heterogeneous structures are noted in the right groin, with dimensions as documented above. These may represent lymphadenopathy. Clinical correlation is advised. Ordering Physician: Odilon Fish Referring Physician: Joselyn Cummings Performed By: Charissa Aj, CYNDI, RVT
--- NOTE | 2019-06-25 11:41 | NURSING ---
VASCULAR PAGED AND RESPONDED. SHE WILL BE IN
[2019-06-25] MEDS: fentaNYL 100 MCG/2 ML Ampul IV (11:49)
[2019-06-25 11:55] LABS: Absolute Lymphocyte Count 0.46 X10^3/uL (0.83-4.51); Basophil# 0.04 X10^3/uL; Basophil% 0.7 % (0-1); Eosinophil# 0.21 X10^3/uL; Eosinophils% 3.4 % (0-5); Hematocrit 37.5 % (40-54); Hemoglobin 13.1 g/dL (13.0-16.5); Lymphocyte # 0.46 X10^3/ul (4.0); Lymphocyte % 7.5 % (19-41); Mean Corp Hgb Conc 34.9 g/dL (32-36); Mean Corpuscular Hgb 30.6 pg (27.0-32.0); Mean Corpuscular Volume 87.6 fL (80-94); Mean Platelet Vol. 11.4 fl (6.2-12.0); Monocyte# 0.38 X10^3/uL; Monocyte% 6.2 % (0-10); NRBC Flagged by Analyzer 0 % (0-5); Neutrophil # 5.03 X10^3/uL (2.7-7.7); Neutrophil % 81.9 % (47-70); POSITIVE DIFFERENTIAL YES; Platelet Count 68 K/mm3 (150-450); RBC Distribution Width CV 13.9 % (11.6-14.6); RBC Distribution Width SD 44.1 fl (35.1-43.9); Red Blood Count 4.28 M/mm3 (4.6-6.2); White Blood Count 6.1 K/mm3 (4.4-11.0)
[2019-06-25 11:59] LABS: Differential Indicated SCAN CRITERIA MET
[2019-06-25 12:00] LABS: International Normalized Ratio 1.2; Prothrombin Time (Protime)PT. 15.3 SECONDS (11.7-14.9)
[2019-06-25 12:01] LABS: Partial Thromboplast Time 36.2 Seconds (24.1-36.2)
[2019-06-25 12:14] LABS: ALB/GLOB Ratio 0.8 RATIO (0.9-2.4); AST(SGOT) 48 U/L (15-37); Alanine Aminotransfer ALT/SGPT 33 U/L (16-61); Albumin, Serum 3.2 g/dL (3.2-5.0); Alkaline Phosphatase 104 U/L (45-117); Anion Gap 3 (5-15); BUN 8 mg/dL (7-18); BUN/Creat Ratio 10.4 RATIO (10-20); Chloride 107 mmol/L (98-107); Creatinine, Serum 0.77 mg/dL (0.70-1.30); EST Glomerular Filtration Rate 116 mL/min (>60); Est Glom Filt Rate - Afr Amer 140 mL/min (>60); Globulin 4.1 g/dL (2.2-4.2); Glucose 151 mg/dL (74-106); Potassium 3.7 mmol/L (3.5-5.1); Protein, Total 7.3 g/dL (6.4-8.2); Sodium Level 138 mmol/L (136-145)
[2019-06-25 12:16] LABS: Platelet Estimate MOD DEC (ADEQ)
[2019-06-25 12:17] LABS: Lactic Acid 1.4 mmol/L (0.4-2.0)
--- NOTE | 2019-06-25 13:44 | ED.DCSUM_ITS ---
- ER Visit Summary Date of Service: 06/25/19 Chief Complaint: Right leg pain History of Present Illness: The patient is a 44 M with right leg pain. Patient has ongoing swelling and redness to his right leg but the pain started today. He has a history of Soriano and cirrhosis. He has a history of low platelets, diabetes, DVT, edema, cellulitis. He is not currently on blood thinners. He has a previous history of smoking. No fevers or systemic symptoms. Physical Examination: Afebrile. Heart rate 109. Otherwise vitals unremarkable. Patient appears uncomfortable. Right leg is diffusely swollen, more so than the left with warmth and redness. He has multiple abrasions up his leg. He is neurovascular intact distally. Otherwise exam unremarkable. Test Results: DVT ultrasound was negative. Platelets 68. Glucose 151. INR 1.2 and PTT 36.2. Lactate 1.4. Blood cultures pending. Emergency Department Course and Treatment: Patient received fentanyl while awaiting results. There was no evidence of DVT. I am more concerned for cellulitis. Labs are not horribly abnormal, but he has multiple medical issues and comorbidities. I believe he would benefit from IV antibiotics and inpatient care. He required additional pain medicine. I spoke with Dr. Millan who will admit. She advised that she will see the patient before starting antibiotics. Treatment Plan: As above Disposition: Admission Impression: 1. Right leg cellulitis This note was generated with [employer] dictation software. It may contain incorrect words, spelling, and punctuation that were not noted in review of the chart prior to signing ED Disposition - Plan for ED Patient: Referrals: Joselyn Cummings DO [Primary Care Provider] -
--- NOTE | 2019-06-25 13:46 | NURSING ---
MED SURG KORAM CELLULITIS
[2019-06-25] MEDS: fentaNYL 100 MCG/2 ML Ampul 50 MCG IV (13:52)
--- NOTE | 2019-06-25 13:53 | HP.PCM_ITS ---
History of Present Illness Date of Admission: 06/25/19 Chief Complaint: Pain and swelling in right lower extremity. The patient is a 44 year old M with past medical history of known alcohol colic steatohepatitis and history of DVT. He also has a history of recurrent cellulitis. He was admitted through the ED on 06/25/2019 with a complaint of pain and swelling in his right lower extremity as well as fever and chills. Symptoms started 1 day before admission. Patient states that he has eczema and is usually scratching his right lower extremity. He has had cellulitis multiple times in the right lower extremity. Yesterday after work, he was scratching on account of itching and woke up this morning she realized that the right lower extremity was markedly swollen and erythematous and very tender. He had associated fever and chills. He therefore decided to come into the ED. Vitals in the ED at time of review showed pulse rate of 101 and respiratory rate of 22 though heart rate during review went as high as the 120s and 1 teens and respiratory rate was up to the high 20s. CBC showed no leukocytosis with white cell count of 6.1. Chemistry was significant for total bilirubin of 1.4 and ALT of 48. Of note, patient denied consuming any raw seafood and denied being in any water bodies recently. Duplex done of the right lower extremity was negative for any DVT. He was started on IV Unasyn and is being admitted to be managed for sepsis due to cellulitis of the right lower extremity. 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 EGD/Lazaro. Psychiatric History: Attn. deficit disorder Lives: Spouse/ Significant Other Smoking Status: Former smoker Alcohol: None Drugs: None - *Family History Maternal History Items: COPD, Hypertension Paternal History Items: Cancer Review of Systems Constitutional: Reports: Chills, Fever, Malaise, Weakness, Fatigue. Denies: Anorexia Eyes: Denies: Blurred vision HEENT: Denies: Head Aches, Sinus Congestion, Sinus Drainage Cardiovascular: Denies: Chest Pain, Chest Pressure, Chest Tightness, Heaviness, Light Headedness, Orthopnea, Palpitations Respiratory: Denies: Cough, Shortness of breath at rest, Sputum production Gastrointestinal: Denies: Abdominal Pain, Nausea, Vomiting Genitourinary: Denies: Dysuria Musculoskeletal: Reports: Leg Pain Skin: Reports: Rash, Skin Changes - eczema and pruritus. Denies: Wounds Neurological: Denies: Numbness, Tingling, Focal weakness Psychiatric: Denies: Anxiety, Depression, Homicidal Ideations, Suicidal Ideations Hematologic/ Lymphatic: Denies: Easy Bruising, Easy Bleeding VTE Information - Inpt Only VTE Present on Admission: No VTE Pharm Prophylaxis ordered?: Yes - Physical Exam General: Alert, Oriented x3, Cooperative, No apparent distress, Lethargic HEENT: Atraumatic, PERRLA, EOMI, Normocephalic Oral: Dry Mucosa Neck: Supple, No JVD, Negative Carotid Bruits Lungs: Clear to auscultation, Normal air movement Cardiovascular: Normal S1, Normal S2, No murmurs, Tachycardic Abdomen: Bowel Sounds Present, Soft, Non Tender, Non-Distended, No Hepato- splenomegaly Extremities: No edema, Capillary Refill Less than 3 Seconds Skin: - - healing excoriations on RLE Musculoskeletal: - - RLE is markedly swollen, erythema extending from foot to just below knee, tender to touch; multiple erythematous excoriations Lymphatic: No Cervical, Supraclavicular, or Inguinal Adenopathy Neurological: Cranial nerves II-XII grossly intact, Neuro grossly intact, Motor Exam 5/5 strength throughout Psych/Mental Status: Normal Affect, Appropriate, Alert and oriented to time, place, person, mood and affect Vital Signs Temp Pulse Resp BP Pulse Ox 99.0 F 101 H 22 H 153/71 H 98 06/25/19 13:44 06/25/19 13:44 06/25/19 13:44 06/25/19 11:18 06/25/19 13:44 Oxygen Delivery Method Room Air Weight: 330 lb Body Mass Index (BMI) 41.2 Finger Stick Blood Glucose 106 Laboratory Tests Past 24 Hrs 06/25/19 06/25/19 06/25/19 11:40 11:40 11:40 WBC 6.1 RBC 4.28 L Hgb 13.1 Hct 37.5 L MCV 87.6 MCH 30.6 MCHC 34.9 RDW Std Deviation 44.1 H RDW Coeff of Ramya 13.9 Plt Count 68 L MPV 11.4 Immature Gran % (Auto) 0.300 Neut % (Auto) 81.9 H Lymph % (Auto) 7.5 L Clinch % (Auto) 6.2 Eos % (Auto) 3.4 Baso % (Auto) 0.7 Absolute Neuts (auto) 5.0 Absolute Lymphs (auto) 0.46 L Nucleated RBC % 0 Platelet Estimate MOD DEC PT 15.3 H INR 1.2 APTT 36.2 Sodium 138 Potassium 3.7 Chloride 107 Carbon Dioxide 28.0 Anion Gap 3 L BUN 8 Creatinine 0.77 Estim Creat Clear Calc 144.80 Est GFR (MDRD) Af Amer 140 Est GFR (MDRD) Non-Af 116 BUN/Creatinine Ratio 10.4 Glucose 151 H Lactic Acid Calcium 8.0 L Total Bilirubin 1.40 H AST 48 H ALT 33 Alkaline Phosphatase 104 Total Protein 7.3 Albumin 3.2 Globulin 4.1 Albumin/Globulin Ratio 0.8 L 06/25/19 11:40 WBC RBC Hgb Hct MCV MCH MCHC RDW Std Deviation RDW Coeff of Ramya Plt Count MPV Immature Gran % (Auto) Neut % (Auto) Lymph % (Auto) Clinch % (Auto) Eos % (Auto) Baso % (Auto) Absolute Neuts (auto) Absolute Lymphs (auto) Nucleated RBC % Platelet Estimate PT INR APTT Sodium Potassium Chloride Carbon Dioxide Anion Gap BUN Creatinine Estim Creat Clear Calc Est GFR (MDRD) Af Amer Est GFR (MDRD) Non-Af BUN/Creatinine Ratio Glucose Lactic Acid 1.4 Calcium Total Bilirubin AST ALT Alkaline Phosphatase Total Protein Albumin Globulin Albumin/Globulin Ratio Assessment/Plan All Active Problems Cellulitis (Acute) Intervertebral disc disorder with radiculopathy of lumbar region (Acute) DVT (deep venous thrombosis) (Acute) Malnutrition (Resolved) Ulcer of left ankle (Resolved) Intervertebral disc disorder with radiculopathy of lumbar region (Acute) Cellulitis of left ankle (Resolved) 44 y/o male admitted with a complaint of right LE redness and swelling of one day duration 1. Sepsis due to RLE cellulitis * admit to MEd sug with telemetry * SIRS criteria is 2/4 * no leucytosytosis * RLE duplex was negative for PE * start IV unasyn * IV morphine and oxycodone prn for pain control * keep RLE elevated * hydrate with IVF NS gently; patient's BP was up in the 150s systolic at time of review, with lactic acid of only 1.4. Will therefore hydrate with IVF NS 150cc/hr x 3 bags. * 2. History of DEAN: bilirubin is 1.4. AST is 48. Stable. Will monitor 3. History of DVT in RLE: had DVT in the past when he had cellulitis. Duplex during this admission is negative. DVT prophylaxis: lovenox Code Visit Inpatient E&M: 39343 Init Hosp L3
[2019-06-25] MEDS: 0.9% Normal Saline 1,000 ML 125 ML IV (15:48)
[2019-06-25] MEDS: Morphine 2 MG/ML Syringe IV ×2 (16:59→23:58)
[2019-06-25] MEDS: 0.9% Normal Saline 1,000 ML 150 ML IV (17:02)
[2019-06-25] MEDS: Ondansetron ODT 4 MG Tablet PO (17:07)
[2019-06-25] MEDS: Gabapentin 300 MG Capsule PO (17:08)
[2019-06-25] MEDS: oxyCODONE 5 MG Tablet PO (20:54)
[2019-06-25] MEDS: Methocarbamol 500 MG Tablet PO (20:55)
[2019-06-25] MEDS: Cefazolin 2 GM in 0.9% Normal Saline 100 ML IV (21:22)
[2019-06-26] VITALS (12 sets, daily range): BP systolic 127–155; BP diastolic 56–74; PULSE 88–105; RESP 16–18; TEMP 36.8–37.3; O2SAT 96–99
[2019-06-26] MEDS: 0.9% Normal Saline 1,000 ML 150 ML IV ×2 (00:03→06:44)
[2019-06-26] MEDS: Cefazolin 2 GM in 0.9% Normal Saline 100 ML IV ×3 (05:20→22:54)
[2019-06-26] MEDS: oxyCODONE 5 MG Tablet PO ×3 (05:23→22:50)
[2019-06-26] MEDS: DEXTROAMPHETAMINE/AMPHETAMINE 30 MG TABLET PO ×2 (06:45→13:17)
[2019-06-26 06:48] LABS: Absolute Lymphocyte Count 0.95 X10^3/uL (0.83-4.51); Absolute Neutrophil Count 5.9 X10^3/uL (2.0-7.7); Basophil# 0.04 X10^3/uL; Basophil% 0.5 % (0-1); Eosinophils% 3.8 % (0-5); Hematocrit 33.7 % (40-54); Hemoglobin 11.8 g/dL (13.0-16.5); Lymphocyte # 0.95 X10^3/ul (4.0); Lymphocyte % 12.1 % (19-41); Mean Corpuscular Volume 88.5 fL (80-94); Mean Platelet Vol. 11.8 fl (6.2-12.0); Monocyte# 0.66 X10^3/uL; Monocyte% 8.4 % (0-10); NRBC Flagged by Analyzer 0 % (0-5); Neutrophil # 5.87 X10^3/uL (2.7-7.7); Neutrophil % 74.9 % (47-70); Platelet Count 61 K/mm3 (150-450); RBC Distribution Width CV 14.3 % (11.6-14.6); RBC Distribution Width SD 45.8 fl (35.1-43.9); Red Blood Count 3.81 M/mm3 (4.6-6.2); White Blood Count 7.8 K/mm3 (4.4-11.0)
[2019-06-26 06:59] LABS: Anion Gap 5 (5-15); BUN 10 mg/dL (7-18); BUN/Creat Ratio 12.8 RATIO (10-20); Calcium,Total 7.8 mg/dL (8.5-10.1); Chloride 110 mmol/L (98-107); Creatinine, Serum 0.78 mg/dL (0.70-1.30); EST Glomerular Filtration Rate 114 mL/min (>60); Est Glom Filt Rate - Afr Amer 138 mL/min (>60); Estimated Creatinine Clearance 142.94 ml/min; Glucose 125 mg/dL (74-106); Potassium 4.1 mmol/L (3.5-5.1); Sodium Level 139 mmol/L (136-145)
[2019-06-26] MEDS: Enoxaparin 40 MG/0.4 ML Syringe SC (08:19)
[2019-06-26] MEDS: Gabapentin 300 MG Capsule PO ×2 (08:19→17:18)
[2019-06-26] MEDS: Morphine 2 MG/ML Syringe IV ×2 (08:22→14:27)
[2019-06-26] MEDS: Ondansetron ODT 4 MG Tablet PO ×2 (08:30→17:19)
--- NOTE | 2019-06-26 09:32 | PN_ITS ---
Subjective: Patient seen and examined. He was admitted on 06/25/2019 with complaint of right lower extremity redness, swelling and pain. He has been managed for cellulitis of the right lower extremity and is on IV cefazolin. Patient states pain is better today he feels like the swelling is going down. Fever and chills have resolved. Review of systems otherwise negative. Labs and vitals reviewed. Temperature peaked at 100.2 Fahrenheit overnight. Tachycardia has also resolved. Has no leukocytosis with white cell count being 7.8 today. Blood cultures are pending. Vitals/I&O's: Vital Signs Temp Pulse Resp BP Pulse Ox 98.6 F 89 18 129/62 H 96 06/26/19 05:24 06/26/19 05:24 06/26/19 05:24 06/26/19 05:24 06/26/19 05:24 Oxygen Delivery Method Room Air Weight: 335 lb 12.224 oz Body Mass Index (BMI) 41.9 Finger Stick Blood Glucose 106 Intake and Output for Last 24 Hours 06/24/19 06/25/19 06/26/19 23:59 23:59 23:59 Intake Total 1659.5 / 2619.5 2415.0 / 2415.0 Output Total 700 / 1400 1600 / 1600 Balance 959.5 / 1219.5 815.0 / 815.0 General: Alert, Oriented x3, Cooperative, No apparent distress, Lethargic HEENT: Atraumatic, PERRLA, EOMI, Normocephalic Oral: Dry Mucosa Neck: Supple, No JVD, Negative Carotid Bruits Lungs: Clear to auscultation, Normal air movement Cardiovascular: Normal S1, Normal S2, No murmurs, Tachycardic Abdomen: Bowel Sounds Present, Soft, Non Tender, Non-Distended, No Hepato- splenomegaly Extremities: No edema, Capillary Refill Less than 3 Seconds Skin: - - healing excoriations on RLE Musculoskeletal: - - RLE swelling has improved mildly, still erythematous but tenderness has improved. Lymphatic: No Cervical, Supraclavicular, or Inguinal Adenopathy Neurological: Cranial nerves II-XII grossly intact, Neuro grossly intact, Motor Exam 5/5 strength throughout Psych/Mental Status: Normal Affect, Appropriate, Alert and oriented to time, place, person, mood and affect Laboratory Results 06/25/19 11:40: WBC 6.1, RBC 4.28 L, Hgb 13.1, Hct 37.5 L, MCV 87.6, MCH 30.6, MCHC 34.9, RDW Std Deviation 44.1 H, RDW Coeff of Ramya 13.9, Plt Count 68 L, MPV 11.4, Immature Gran % (Auto) 0.300, Neut % (Auto) 81.9 H, Lymph % (Auto) 7.5 L, [place] % (Auto) 6.2, Eos % (Auto) 3.4, Baso % (Auto) 0.7, Absolute Neuts (auto) 5.0, Absolute Lymphs (auto) 0.46 L, Nucleated RBC % 0, Platelet Estimate MOD 06/25/19 11:40: PT 15.3 H, INR 1.2, APTT 36.2 06/25/19 11:40: Sodium 138, Potassium 3.7, Chloride 107, Carbon Dioxide 28.0, Anion Gap 3 L, BUN 8, Creatinine 0.77, Estim Creat Clear Calc 144.80, Est GFR (MDRD) Af Amer 140, Est GFR (MDRD) Non-Af 116, BUN/Creatinine Ratio 10.4, Glucose 151 H, Calcium 8.0 L, Total Bilirubin 1.40 H, AST 48 H, ALT 33, Alkaline Phosphatase 104, Total Protein 7.3, Albumin 3.2, Globulin 4.1, Albumin/Globulin Ratio 0.8 L 06/25/19 11:40: Lactic Acid 1.4 06/26/19 06:08: WBC 7.8, RBC 3.81 L, Hgb 11.8 L, Hct 33.7 L, MCV 88.5, MCH 31.0, MCHC 35.0, RDW Std Deviation 45.8 H, RDW Coeff of Ramya 14.3, Plt Count 61 L, MPV 11.8, Immature Gran % (Auto) 0.300, Neut % (Auto) 74.9 H, Lymph % (Auto) 12.1 L, [place] % (Auto) 8.4, Eos % (Auto) 3.8, Baso % (Auto) 0.5, Absolute Neuts (auto) 5.9, Absolute Lymphs (auto) 0.95, Nucleated RBC % 0 06/26/19 06:08: Sodium 139, Potassium 4.1, Chloride 110 H, Carbon Dioxide 24.0, Anion Gap 5, BUN 10, Creatinine 0.78, Estim Creat Clear Calc 142.94, Est GFR (MDRD) Af Amer 138, Est GFR (MDRD) Non-Af 114, BUN/Creatinine Ratio 12.8, Glucose 125 H, Calcium 7.8 L Current Medications Dextrose (D50w Syringe) 0 gm IV X1 PRN; Protocol PRN Reason: Hypoglycemia Enoxaparin Sodium (Lovenox) 40 mg SC DAILY@1000 OPAL Last Admin: 06/26/19 08:19 Dose: 40 mg Documented by: Gabapentin (Neurontin) 300 mg PO BIDCM [facility] Last Admin: 06/26/19 08:19 Dose: 300 mg Documented by: Glucagon () 1 mg IM .X1 PRN PRN Reason: Hypoglycemia Cefazolin Sodium 2 gm/ Sodium (Chloride) 110 mls @ 150 mls/hr IV Q8 [facility] Last Infusion: 06/26/19 06:11 Dose: Infused Documented by: Sodium Chloride () 1,000 mls @ 150 mls/hr IV .Q6H40M [facility] Stop: 06/26/19 12:09 Last Admin: 06/26/19 06:44 Dose: 150 mls/hr Documented by: Methocarbamol (Robaxin) 500 mg PO QHS [facility] Last Admin: 06/25/19 20:55 Dose: 500 mg Documented by: Morphine Sulfate () 2 mg IV Q3H PRN PRN PRN Reason: SEVERE PAIN (6-10/10) Last Admin: 06/26/19 08:22 Dose: 2 mg Documented by: Ondansetron HCl (Zofran Odt) 4 mg PO Q8H PRN PRN PRN Reason: NAUSEA/VOMITING Last Admin: 06/26/19 08:30 Dose: 4 mg Documented by: Oxycodone HCl (Oxyir) 5 mg PO TID [facility] Last Admin: 06/26/19 05:23 Dose: 5 mg Documented by: Medical Necessity - Tobacco Use Smoking Status: Former smoker Assessment/Plan All Active Problems Cellulitis (Acute) Intervertebral disc disorder with radiculopathy of lumbar region (Acute) DVT (deep venous thrombosis) (Acute) Malnutrition (Resolved) Ulcer of left ankle (Resolved) Intervertebral disc disorder with radiculopathy of lumbar region (Acute) Cellulitis of left ankle (Resolved) 44 y/o male admitted with a complaint of right LE redness and swelling of one day duration 1. Sepsis due to RLE cellulitis * SIRS criteria today is 0/4 * white cell count remains down at 7.8 * RLE duplex was negative for PE * on IV cefazolin * IV morphine and oxycodone prn for pain control * keep RLE elevated * blood cultures pending * 2. History of DEAN: Stable. Will monitor 3. History of DVT in RLE: had DVT in the past when he had cellulitis. Duplex done on admission was negative. 4. Chronic back pain: on oxycodone at home. DVT prophylaxis: lovenox Code Visit Inpatient E&M: 27786 [facility] Hosp L3
[2019-06-26] MEDS: Morphine 4 MG/ML Syringe IV ×2 (17:19→20:46)
[2019-06-26] MEDS: Methocarbamol 500 MG Tablet PO (22:51)
[2019-06-26] MEDS: 0.9% NaCl Peripheral Flush Adult/Peds IV (22:54)
[2019-06-27 03:00] VITALS: PULSE 87
[2019-06-27 03:41] VITALS: BP 139/78; PULSE 92; RESP 16; TEMP 36.9; O2SAT 96
[2019-06-27] MEDS: 0.9% NaCl Peripheral Flush Adult/Peds IV ×2 (03:44→06:08)
[2019-06-27] MEDS: Morphine 4 MG/ML Syringe IV ×2 (04:01→11:17)
[2019-06-27 06:05] VITALS: BP 142/77; PULSE 85; RESP 18
[2019-06-27 06:07] LABS: Absolute Lymphocyte Count 1.14 X10^3/uL (0.83-4.51); Absolute Neutrophil Count 3.9 X10^3/uL (2.0-7.7); Basophil# 0.03 X10^3/uL; Basophil% 0.5 % (0-1); Eosinophil# 0.33 X10^3/uL; Eosinophils% 5.5 % (0-5); Hematocrit 33.6 % (40-54); Hemoglobin 11.6 g/dL (13.0-16.5); Lymphocyte # 1.14 X10^3/ul (4.0); Lymphocyte % 19.1 % (19-41); Mean Corp Hgb Conc 34.5 g/dL (32-36); Mean Corpuscular Hgb 30.8 pg (27.0-32.0); Mean Corpuscular Volume 89.1 fL (80-94); Mean Platelet Vol. 11.6 fl (6.2-12.0); NRBC Flagged by Analyzer 0 % (0-5); Neutrophil # 3.86 X10^3/uL (2.7-7.7); Neutrophil % 64.6 % (47-70); Platelet Count 66 K/mm3 (150-450); RBC Distribution Width CV 14.4 % (11.6-14.6); RBC Distribution Width SD 46.3 fl (35.1-43.9); Red Blood Count 3.77 M/mm3 (4.6-6.2)
[2019-06-27] MEDS: oxyCODONE 5 MG Tablet PO (06:08)
[2019-06-27] MEDS: DEXTROAMPHETAMINE/AMPHETAMINE 30 MG TABLET PO (06:09)
[2019-06-27] MEDS: Cefazolin 2 GM in 0.9% Normal Saline 100 ML IV (06:09)
[2019-06-27 06:12] LABS: Anion Gap 6 (5-15); BUN 8 mg/dL (7-18); Calcium,Total 7.7 mg/dL (8.5-10.1); Chloride 109 mmol/L (98-107); EST Glomerular Filtration Rate 110 mL/min (>60); Est Glom Filt Rate - Afr Amer 134 mL/min (>60); Estimated Creatinine Clearance 139.37 ml/min; Glucose 130 mg/dL (74-106); Potassium 3.8 mmol/L (3.5-5.1); Sodium Level 141 mmol/L (136-145)
[2019-06-27 09:40] VITALS: BP 152/70; PULSE 94; RESP 20; TEMP 36.8; O2SAT 99
[2019-06-27] MEDS: Enoxaparin 40 MG/0.4 ML Syringe SC (09:41)
[2019-06-27] MEDS: Gabapentin 300 MG Capsule PO (09:41)
--- NOTE | 2019-06-27 10:14 | DCINST_ITS ---
You will use the following diet at home:: Calorie/Carbohydrate Controlled (specify 1200, 1400, etc) - 1999 Your food should be the consistency of: Regular Your liquids should be the consistency of: Regular/Thin Discharge Activity: Return to Normal Activity, No Restrictions Call your doctor if you observe: Fever of 101 or Higher, Shortness of breath, Dizziness, Fainting spells, Swelling in the ankles, Chest pain, Increased palpitations (irregular heartbeat) Allergies/Adverse Reactions: Allergies No Known Allergies Allergy (Verified 06/25/19 11:18) Medications to take at Discharge Methocarbamol [Robaxin] 500 mg PO QHS 01/07/17 Dextroamp-Amphet ER 30 mg Cap 30 mg PO BID 01/17/19 Gabapentin [Neurontin] 300 mg PO BID 02/11/19 Ondansetron [Zofran Odt] 4 mg PO Q8H PRN PRN #20 tablet 02/14/19 Oxycodone [Oxyir] 5 mg PO TID 06/25/19 Cephalexin [Keflex] 500 mg PO Q6 #36 cap 06/27/19 The following prescriptions were given: Cephalexin [Keflex] 500 mg PO Q6 #36 cap Transmission Status: Pending to [facility] Primary Care Physician: Joselyn Cummings DO [Primary Care Provider] - Please follow up with your Primary Care Physician in: 3-5 days Test Results: Test results from this visit will be discussed in further detail at your follow- up appointment, if applicable.
--- NOTE | 2019-06-27 11:04 | PHA.DC.MC ---
Pharmacy Service has performed discharge medication reconciliation and counseling for this patient. The patient's discharge medication list was reviewed for discrepancies and discrepancies were resolved. The patient was counseled on the following discharge medications and changes in medications for homegoing were reviewed. 1. CEPHALEXIN 500MG PO Q6H X6 DAYS The Reason for Use, instructions for use, and potential side effects were reviewed for all new medications. The patient's questions regarding all of their medications were answered. The patient was able to verbally demonstrate an understanding of their discharge medications. Home Medications Methocarbamol [Robaxin] 500 mg PO QHS 01/07/17 Dextroamp-Amphet ER 30 mg Cap 30 mg PO BID 01/17/19 Gabapentin [Neurontin] 300 mg PO BID 02/11/19 Ondansetron [Zofran Odt] 4 mg PO Q8H PRN PRN #20 tablet 02/14/19 Oxycodone [Oxyir] 5 mg PO TID 06/25/19 Cephalexin [Keflex] 500 mg PO Q6 #36 cap 06/27/19
--- NOTE | 2019-06-27 11:12 | CASEMGMT ---
MARIA EUGENIA BERMUDEZ assessment: Face to Face with patient for initial transition planning/care coordination assessment. MARIA EUGENIA BERMUDEZ introduced self and role at [facility], pt voices understanding and consents to assessment at this time. Pt is lying in bed in no distress at this time. Pt is A/Ox4 at this time and answers all questions appropriately at this time. Pt's is at bedside during assessment. Care providers, pharmacy, and demographics verified at this time. PCP: Zoila Specialists: [facility] liver specialist in [facility] Pharmacy: Alec Leyva Insurance: [employer] Prescription Benefit: UMR Living Will/HPOA: Pt states does not have LW/HPOA and declines info at this time. LNOK: Carmencita Ceballos, Living Arrangements: Pt states lives with in house and states no concerns at home at this time. Pt states is independent with ADL's. Transportation: Pt states drives self and states no transportation concerns at this time. DME/HHC: Pt states does not have any DME and states no need for any at this time. Pt states no hx of HHC or SNF at this time. Pt states no concerns with going home at time of discharge. 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 Pt states does not smoke or drink ETOH. Pt states no further concerns/needs at this time. CM to follow for any further discharge planning/needs. Advised pt to ask for CM if any further questions/concerns/needs arise, voices understanding. Pt Goal: Home Plan[place] MARIA EUGENIA BERMUDEZ
[2019-06-27 11:43] VITALS: PULSE 94; RESP 20
--- NOTE | 2019-06-27 12:28 | PCM.DC.SUM ---
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 There is no evidence of right lower extremity deep vein thrombosis. Valvular competence appears intact within the proximal deep venous system on the right . The right great saphenous vein appears patent and compressible segmentally. The right peroneal vein was not well visualized due to swelling. Several vascularized, heterogeneous structures are noted in the right groin, with dimensions as documented above. These may represent lymphadenopathy. Clinical correlation is advised. Consults: None Operations: None Procedures: None Summary of Care Provided: Per HPI: The patient is a 44 year old M with past medical history of known alcohol colic steatohepatitis and history of DVT. He also has a history of recurrent cellulitis. He was admitted through the ED on 06/25/2019 with a complaint of pain and swelling in his right lower extremity as well as fever and chills. Symptoms started 1 day before admission. Patient states that he has eczema and is usually scratching his right lower extremity. He has had cellulitis multiple times in the right lower extremity. Yesterday after work, he was scratching on account of itching and woke up this morning she realized that the right lower extremity was markedly swollen and erythematous and very tender. He had associated fever and chills. He therefore decided to come into the ED. Vitals in the ED at time of review showed pulse rate of 101 and respiratory rate of 22 though heart rate during review went as high as the 120s and 1 teens and respiratory rate was up to the high 20s. CBC showed no leukocytosis with white cell count of 6.1. Chemistry was significant for total bilirubin of 1.4 and ALT of 48. Of note, patient denied consuming any raw seafood and denied being in any water bodies recently. Duplex done of the right lower extremity was negative for any DVT. He was started on IV Unasyn and is being admitted to be managed for sepsis due to cellulitis of the right lower extremity. Hospital Course: 1. Right lower extremity cellulitis with [id number] male with significant past medical history of nonalcoholic steatohepatitis as well as chronic lower extremity swelling that is bilateral. He said that his right lower extremity was more swollen on this admission than his left and it was warm and red. This is the fourth time he has had cellulitis in that right lower extremity this year. He had an ultrasound Doppler to evaluate for DVT which was negative for DVT. He also states that he spoke to his primary care physician who thinks that a lot of the cellulitis is secondary to his job where he is on his feet for 12 hours a day. He is in the process of getting disability so that way he can take care of his health first. He was started on Ancef and received 5 doses total since admission and he states that his redness has practically resolved, and that the pain that he was feeling is also much improved, he is remained afebrile and never had a leukocytosis. He would like to go home on oral antibiotics. This was discussed with both him and the family and they were in agreement with the plan. Risks and benefits of going home were also discussed, and he was discharged with Keflex and outpatient follow-up. 2. Morbid obesity-I had a 45-minute discussion with him and the family about weight loss and lifestyle modifications. We discussed the fact that his obesity contributes to his chronic back pain as well as his swelling and other chronic conditions. 3. His other medical diagnoses were evaluated and his home medications were continued where appropriate - Physical Exam General: Alert, Oriented x3, Cooperative, No apparent distress HEENT: Atraumatic, PERRLA, EOMI, Normocephalic Oral: Moist Mucosa Neck: Supple, No JVD Lungs: Clear to auscultation, Normal air movement, No rhonchi, No wheeze, No rales Cardiovascular: Regular rate, Regular Rhythm, Normal S1, Normal S2, No murmurs Abdomen: Soft, Non Tender, Non-Distended, No Hepato-splenomegaly, Obese Extremities: Capillary Refill Less than 3 Seconds, Edema - Bilateral 1-2+ pitting Skin: - - Right lower extremity appears to have chronic venous stasis changes, erythema is not visible, however photos from admission on the 's phone were reviewed and his extremity today appears much better than it did on admission Neurological: Neuro grossly intact, Sensory exam intact to light touch and pain Psych/Mental Status: Normal Affect, Appropriate Vital Signs Temp Pulse Resp BP Pulse Ox 98.3 F 94 20 H 152/70 H 99 06/27/19 09:40 06/27/19 11:43 06/27/19 11:43 06/27/19 09:40 06/27/19 09:40 Oxygen Delivery Method Room Air Weight: 335 lb 12.224 oz Body Mass Index (BMI) 41.9 Finger Stick Blood Glucose 106 Intake and Output for Last 24 Hours 06/25/19 06/26/19 06/27/19 23:59 23:59 23:59 Intake Total 1659.5 / 2619.5 4475.0 / 4775.0 810 / 810 Output Total 700 / 1400 2850 / 3650 1400 / 1400 Balance 959.5 / 1219.5 1625.0 / 1125.0 -590 / -590 Laboratory Tests Past 24 Hrs 06/27/19 06/27/19 05:25 05:25 WBC 6.0 RBC 3.77 L Hgb 11.6 L Hct 33.6 L MCV 89.1 MCH 30.8 MCHC 34.5 RDW Std Deviation 46.3 H RDW Coeff of Ramya 14.4 Plt Count 66 L MPV 11.6 Immature Gran % (Auto) 0.300 Neut % (Auto) 64.6 Lymph % (Auto) 19.1 [place] % (Auto) 10.0 Eos % (Auto) 5.5 H Baso % (Auto) 0.5 Absolute Neuts (auto) 3.9 Absolute Lymphs (auto) 1.14 Nucleated RBC % 0 Sodium 141 Potassium 3.8 Chloride 109 H Carbon Dioxide 26.0 Anion Gap 6 BUN 8 Creatinine 0.80 Estim Creat Clear Calc 139.37 Est GFR (MDRD) Af Amer 134 Est GFR (MDRD) Non-Af 110 BUN/Creatinine Ratio 10.0 Glucose 130 H Calcium 7.7 L Discharge Activity: Return to Normal Activity, No Restrictions Call your doctor if you observe: Fever of 101 or Higher, Shortness of breath, Dizziness, Fainting spells, Swelling in the ankles, Chest pain, Increased palpitations (irregular heartbeat) Home Medications: Medications to take at Discharge Methocarbamol [Robaxin] 500 mg PO QHS 01/07/17 Dextroamp-Amphet ER 30 mg Cap 30 mg PO BID 01/17/19 Gabapentin [Neurontin] 300 mg PO BID 02/11/19 Ondansetron [Zofran Odt] 4 mg PO Q8H PRN PRN #20 tablet 02/14/19 Oxycodone [Oxyir] 5 mg PO TID 06/25/19 Cephalexin [Keflex] 500 mg PO Q6 #36 cap 06/27/19 Following Prescrptions Were Given to Patient: Cephalexin [Keflex] 500 mg PO Q6 #36 cap Transmission Status: Received by [facility] Primary Care Physician: Joselyn Cummings DO [Primary Care Provider] - Please follow up with your Primary Care Physician in: 3-5 days Please Follow Up With: Joselyn Cummings DO Disposition: Home Minutes spent on discharge:: 35 Patient Condition:: Stable Medical Necessity - Tobacco Use Smoking Status: Former smoker Meaningful Use Info Meaningful Use Diagnoses (Choose all that apply): None applicable Code Visit Inpatient E&M: 39426 Disch Hosp
--- NOTE | 2019-06-28 14:58 | CASEMGMT ---
RN CM Discharge F/U Phone Call LACE: 12 Strata: 4 Discharge date: 06/27/19 Call date: 06/28/19 Call time: [id number] Attempted to reach pt without success at this time, message left for pt to call this RN CM back, if/when able. SStaten RN CM Admission dx: Cellulitis
== END 2019-06-27 11:37 | disposition home or self-care (01) | DRG 872 ==
LOC: ED 11:46 → PCU 14:34
PROVIDERS: Admitting Provider Student in an Organized Health Care Education/Training Program; Emergency Provider Emergency Medicine; Family Provider Internal Medicine; PCP Internal Medicine; Referring Provider Student in an Organized Health Care Education/Training Program; Visit Provider Family Medicine
DX: A41.9 Sepsis, unspecified organism (principal); L03.115 Cellulitis of right lower limb; Z68.41 Body mass index [BMI] 40.0-44.9, adult; L30.9 Dermatitis, unspecified; K75.81 Nonalcoholic steatohepatitis (NASH); K74.60 Unspecified cirrhosis of liver; D69.6 Thrombocytopenia, unspecified; E66.01 Morbid (severe) obesity due to excess calories; I87.2 Venous insufficiency (chronic) (peripheral); E11.9 Type 2 diabetes mellitus without complications; Z79.891 Long term (current) use of opiate analgesic; Z82.49 Family history of ischemic heart disease and other diseases of the circulatory system; Z82.5 Family history of asthma and other chronic lower respiratory diseases; Z86.718 Personal history of other venous thrombosis and embolism; Z87.891 Personal history of nicotine dependence; M51.16 Intervertebral disc disorders with radiculopathy, lumbar region; G89.29 Other chronic pain; M54.9 Dorsalgia, unspecified
CPT/HCPCS: 36415; 80048; 80053; 83605; 85025; 85610; 85730; 87040; 93971; 97802; 99285; J7030; A4216; J0295

== ENCOUNTER → 2019-06-29 12:12 | Outpatient (CLI) | payer OTHER, SELFPAY ==
[2019-06-25 15:01] VITALS: BMI 41.9
[2019-06-29 19:21] LABS: M R Staph aureus DNA By PCR Negative (Negative); Probe Check PASS; Specimen Processing Control PASS
== END ==
PROVIDERS: Family Provider Internal Medicine; PCP Internal Medicine; Referring Provider Nurse Practitioner; Visit Provider Nurse Practitioner
DX: L03.90 Cellulitis, unspecified (principal)
CPT/HCPCS: 87641

== ENCOUNTER → 2019-07-05 16:25 | Outpatient (CLI) | payer OTHER, SELFPAY ==
[2019-02-11 13:02] VITALS: BMI 38.7
[2019-06-25 15:01] VITALS: BMI 41.9
--- NOTE | 2019-07-05 16:45 | MRI_ITS ---
STUDY: MRI LUMBAR SPINE WITHOUT CONTRAST REASON FOR EXAM: Male, 44 years old. Back pain and right leg pain TECHNIQUE: Standardized fat and water weighted pulse sequences were obtained in the sagittal and axial planes. COMPARISON: July 21, 2016 FINDINGS: T12-L1: Normal endplates. Normal disc height, hydration and morphology. Normal bilateral facet joints. Normal central canal and bilateral lateral recesses. Normal bilateral intervertebral neural foramina. Normal lumbar lordosis. There is no substantial scoliosis. Normal conus medullaris that terminates at T12-L1 L1-2: Normal endplates. Normal disc height, hydration and morphology. Normal bilateral facet joints. Normal central canal and bilateral lateral recesses. Normal bilateral intervertebral neural foramina. L2-3: Normal endplates. Normal disc height, hydration and morphology. Normal bilateral facet joints. Normal central canal and bilateral lateral recesses. Normal bilateral intervertebral neural foramina. L3-4: Normal endplates. Normal disc height, hydration and morphology. Normal bilateral facet joints. Normal central canal and bilateral lateral recesses. Normal bilateral intervertebral neural foramina. L4-5: Normal endplates. Normal disc height, hydration and tiny right foraminal disc protrusion.. Normal bilateral facet joints. Normal central canal and bilateral lateral recesses. Mild right neuroforaminal encroachment.. L5-S1: Degenerative endplate changes. Normal disc height, desiccation and minor annular bulge in association with a moderate size broad-based central/right paracentral disc protrusion impinging upon the thecal sac.. Bilateral facet arthropathy. Mild narrowing of the central canal. Normal bilateral lateral recesses. Normal bilateral intervertebral neural foramina. Normal visualized sacral ala. Normal visualized paraspinous soft tissue structures. The disc protrusion at L5-S1 has increased in size since prior exam. The tiny right foraminal disc protrusion at L4-5 is new finding MRI/Spine Lumbar (Routine) IMPRESSION: Mild right neural foraminal encroachment at L4-5 secondary to tiny disc protrusion. Minor bulging annulus at L5-S1 in association with moderate-sized broad-based central/right paracentral disc protrusion impinging upon the thecal sac and mildly narrowing the central canal. Electronically Signed: John Paul Mendez MD at 20:02 EDT , Service support ,
== END ==
PROVIDERS: Family Provider Internal Medicine; PCP Internal Medicine; Referring Provider Anesthesiology; Visit Provider Anesthesiology
DX: M54.16 Radiculopathy, lumbar region (principal)
CPT/HCPCS: 72148

== ENCOUNTER → 2019-07-08 18:17 | Outpatient (CLI) | payer OTHER, SELFPAY ==
[2019-06-25 15:01] VITALS: BMI 41.9
[2019-07-08 18:46] LABS: Amphetamine Urine VISTA POSITIVE (<1000 ng/mL); Barbiturate Urine VISTA NEGATIVE (< 200 ng/mL); Benzodiazepine Urine VISTA NEGATIVE (< 200 ng/mL); Cocaine Urine VISTA NEGATIVE (< 300 ng/mL); Ecstacy Urine VISTA NEGATIVE (< 500 ng/mL); Methadone Urine VISTA NEGATIVE (< 300 ng/mL); PCP Urine VISTA NEGATIVE (< 25 ng/mL); THC Urine VISTA NEGATIVE (< 50 ng/mL); Vista UDS pH Range 5
== END ==
PROVIDERS: Family Provider Internal Medicine; PCP Internal Medicine; Referring Provider Anesthesiology; Visit Provider Anesthesiology
DX: F11.20 Opioid dependence, uncomplicated (principal)
CPT/HCPCS: 36415; 80307

== ENCOUNTER → 2019-07-13 16:22 | Outpatient (CLI) | payer OTHER, SELFPAY ==
[2019-06-25 15:01] VITALS: BMI 41.9
[2019-07-13 18:13] LABS: Albumin, Serum 3.1 g/dL (3.2-5.0); BUN 6 mg/dL (7-18); BUN/Creat Ratio 8.1 RATIO (10-20); Calcium,Total 8.6 mg/dL (8.5-10.1); Chloride 110 mmol/L (98-107); Creatinine, Serum 0.74 mg/dL (0.70-1.30); EST Glomerular Filtration Rate 122 mL/min (>60); Est Glom Filt Rate - Afr Amer 147 mL/min (>60); Glucose 128 mg/dL (74-106); Phosphorus 3.8 mg/dL (2.5-4.9); Potassium 3.8 mmol/L (3.5-5.1); Sodium Level 144 mmol/L (136-145)
== END ==
PROVIDERS: Family Provider Internal Medicine; PCP Internal Medicine; Referring Provider Nurse Practitioner; Visit Provider Nurse Practitioner
DX: M79.89 Other specified soft tissue disorders (principal)
CPT/HCPCS: 36415; 80069

== ENCOUNTER 2019-07-13 22:14 | Inpatient (IN) | payer OTHER, SELFPAY ==
[2019-06-25 15:01] VITALS: BMI 41.9
[2019-07-13 22:15] VITALS: BP 150/86; PULSE 88; RESP 14; TEMP 36.9; O2SAT 97; BMI 42.4
--- NOTE | 2019-07-13 22:55 | ED.DCSUM_ITS ---
History of Present Illness Chief Complaint: Cellulitis Informant: Patient Onset: Yesterday Context: Sudden Onset Timing: Continuous Narrative: Patient is a 44-year-old male with history of Soriano, cellulitis of the lower e xtremity and chronic low back pain presenting with worsening pain, swelling and redness of his right foot. Patient states he was recently admitted to the hospital approximately 2 weeks ago for cellulitis in the same area. We discharged home on a course of Keflex. Patient finished antibiotics 2 to 3 days ago. Since then he has had increased swelling of that foot. Today he notes that he had increased pain, tingling and redness that has progressed quickly throughout the day. Patient denies any fever or chills. States that his cellulitis usually comes on quickly and so he came to the emergency room immediately for further evaluation. He notes he does have a history of 2 blood clots in that leg as well. Patient denies any other complaints at this time. He denies any associated chest pain, shortness of breath or difficulty breathing. He denies any new injury or trauma. He denies any pain with range of motion of the ankle or foot. Past Medical History - Allergies and Home Meds Allergies/Adverse Reactions: Allergies No Known Allergies Allergy (Verified 07/13/19 22:18) Past Medical History: - - SORIANO, chronic back pain, hx of DVT Surgical History: cholecystectomy, - - Foot surgery, Finger surgery, Testicular surgery, ? EGD/L[facility]aro. Smoking Status: Former smoker - Family History Maternal Family History: Reports: COPD, Hypertension Paternal Family History: Reports: Cancer Review of Systems All systems negative except as indicated Musculoskeletal: Reports: Extremity Pain - RLE- foot Skin: Reports: Rash - RLE- foot Physical Exam Vital Signs/Narrative: Vital Signs Temp Pulse Resp BP Pulse Ox 07/13/19 22:15 98.4 F 88 14 150/86 H 97 Inital Vital Signs reviewed: Yes General: Well nourished, Well developed, No Acute Distress Head: Normocephalic, Atraumatic Eyes: Perrl, EOMI ENT: Moist mucous membranes, No rhinorrhea Neck: Supple, Nontender Cardiovascular: Regular rate, Regular rhythm, No murmurs Respiratory: No distress, CTA bilaterally, Chest nontender Abdomen: Soft, Nontender, Nondistended, Normal bowel sounds Back: Nontender, Normal Inspection Extremities: Tenderness - Right foot- distal, Edema - 2+ RLE, >LLE, - - No associated crepitus Skin: Rash - Blanching, erythematous rash over dorsal aspect of distal foot, warm to touch, chronic skin changes of the right lower extremity, 2 cm healing wound over proximal fowler of the right Neurological: Alert, Oriented x3, Cranial nerves II-XII grossly intact, Normal Strength, Normal Sensation Psychological: Normal affect, Normal Mood Diagnostic/Tx/Re-eval Clinical Impression(s) from Imaging Studies Venous Duplex 07/13/19 22:57 IMPRESSION: Negative exam. No evidence of right lower extremity DVT. at 0012 Reported and signed by: Diego Cook MD Electronically Signed: Diego Cook, at 0:11 EDT Tel , Service support , Laboratory Data 07/13/19 07/13/19 07/13/19 23:22 23:22 23:22 WBC Cancelled Corrected WBC Cancelled RBC Cancelled Hgb Cancelled Hct Cancelled MCV Cancelled MCH Cancelled MCHC Cancelled RDW Std Deviation Cancelled RDW Coeff of Ramya Cancelled Plt Count Cancelled MPV Cancelled Immature Gran % (Auto) Cancelled Neut % (Auto) Cancelled Lymph % (Auto) Cancelled [place] % (Auto) Cancelled Eos % (Auto) Cancelled Baso % (Auto) Cancelled Absolute Neuts (auto) Cancelled Absolute Lymphs (auto) Cancelled Total Counted Cancelled Neutrophils % (Manual) Cancelled Band Neutrophils % Cancelled Lymphocytes % (Manual) Cancelled Monocytes % (Manual) Cancelled Eosinophils % (Manual) Cancelled Basophils % (Manual) Cancelled Metamyelocytes % Cancelled Myelocytes % Cancelled Promyelocytes % Cancelled Blast Cells % Cancelled Plasma Cell % (Manual) Cancelled Other Cells % Cancelled Nucleated RBC % Cancelled Nucleated RBCs/100 WBC Cancelled Differential Comment Cancelled Diff Path Review Cancelled Hypersegmented Neuts Cancelled Atypical Lymphocytes Cancelled Reactive Lymphocytes Cancelled Smudge Cells Cancelled Toxic Granulation Cancelled Toxic Vacuolation Cancelled Dohle Bodies Cancelled Candi Rods Cancelled Platelet Estimate Cancelled Plt Morphology Comment Cancelled RBC Morphology Cancelled Polychromasia Cancelled Hypochromasia Cancelled Poikilocytosis Cancelled Basophilic Stippling Cancelled Anisocytosis Cancelled Microcytosis Cancelled Macrocytosis Cancelled Spherocytes Cancelled Sickle Cells Cancelled Target Cells Cancelled Tear Drop Cells Cancelled Ovalocytes Cancelled Stomatocytes Cancelled Singh-[place] Bodies Cancelled Bartolo Cells Cancelled Bite Cells Cancelled Crenated Cell Cancelled Acanthocytes (Spur) Cancelled Rouleaux Cancelled Schistocytes Cancelled Sodium 142 Potassium 3.7 Chloride 112 H Carbon Dioxide 26.0 Anion Gap 4 L BUN 5 L Creatinine 0.76 Estim Creat Clear Calc 146.70 Est GFR (MDRD) Af Amer 142 Est GFR (MDRD) Non-Af 118 BUN/Creatinine Ratio 6.6 L Glucose 157 H Lactic Acid 1.6 Calcium 8.5 07/14/19 00:01 WBC 3.8 L Corrected WBC RBC 3.86 L Hgb 11.6 L Hct 33.9 L MCV 87.8 MCH 30.1 MCHC 34.2 RDW Std Deviation 46.1 H RDW Coeff of Ramya 14.6 Plt Count 72 L MPV 11.4 Immature Gran % (Auto) 0.000 Neut % (Auto) 48.2 Lymph % (Auto) 33.9 [place] % (Auto) 9.5 Eos % (Auto) 7.6 H Baso % (Auto) 0.8 Absolute Neuts (auto) 1.8 L Absolute Lymphs (auto) 1.29 Total Counted Neutrophils % (Manual) Band Neutrophils % Lymphocytes % (Manual) Monocytes % (Manual) Eosinophils % (Manual) Basophils % (Manual) Metamyelocytes % Myelocytes % Promyelocytes % Blast Cells % Plasma Cell % (Manual) Other Cells % Nucleated RBC % 0 Nucleated RBCs/100 WBC Differential Comment Diff Path Review Hypersegmented Neuts Atypical Lymphocytes Reactive Lymphocytes Smudge Cells Toxic Granulation Toxic Vacuolation Dohle Bodies Candi Rods Platelet Estimate Plt Morphology Comment RBC Morphology Polychromasia Hypochromasia Poikilocytosis Basophilic Stippling Anisocytosis Microcytosis Macrocytosis Spherocytes Sickle Cells Target Cells Tear Drop Cells Ovalocytes Stomatocytes Singh-[place] Bodies Bartolo Cells Bite Cells Crenated Cell Acanthocytes (Spur) Rouleaux Schistocytes Sodium Potassium Chloride Carbon Dioxide Anion Gap BUN Creatinine Estim Creat Clear Calc Est GFR (MDRD) Af Amer Est GFR (MDRD) Non-Af BUN/Creatinine Ratio Glucose Lactic Acid Calcium Diagnostic Data Venous Duplex 07/13/19 22:57 IMPRESSION: Negative exam. No evidence of right lower extremity DVT. at 0012 Reported and signed by: Diego Cook MD Electronically Signed: Diego Cook, at 0:11 EDT Tel , Service support , - Medical Decision Making Patient is evaluated for pain and redness of his right lower extremity. Exam is consistent with cellulitis. Venous duplex is obtained which is negative for DVT. Patient is given morphine initially for pain control. Patient does have mild improvement of but does require re-dose with 1 mg of IV Dilaudid. He is given IV fluids. Patient is leukopenic. His absolute neutrophil count is low but he does not meet criteria for neutropenia. Because of patient's history of recurrent cellulitis with return when he stopped his antibiotics as well and is immune compromised state from his liver disease he will be admitted for IV antibiotics. He is given IV vancomycin in the ER. Blood cultures are obtained. Patient is agreeable with this plan. He is stable for the general medical floor at time of disposition. ED Disposition - Plan for ED Patient: Disposition: Acute [facility] Diagnosis: Cellulitis, Leukopenia
--- NOTE | 2019-07-13 22:57 | US_ITS ---
HISTORY: RT LEG CELLULITIS-lower calf EXAMINATION: US Venous Duplex LE Unilat / Limited TECHNIQUE: De La Cruz scale, pulse wave, and color flow Doppler imaging was performed of the lower extremity venous system. The right greater saphenous, common femoral, femoral, and popliteal veins were interrogated. COMPARISON: 06/25/2019 FINDINGS: There is normal compression, augmentation, and signal throughout the visualized right lower extremity deep veins. At the right calf, the peroneal deep veins are not well seen. No mass or fluid collection. US/Venous Duplex Imag/Limited/Uni IMPRESSION: Negative exam. No evidence of right lower extremity DVT. at 0012 Reported and signed by: Diego Cook MD Electronically Signed: Diego Cook, at 0:11 EDT Tel , Service support ,
[2019-07-13] MEDS: morphine 8 MG/ML Syringe 6 MG IV (23:26)
[2019-07-13 23:48] LABS: Anion Gap 4 (5-15); BUN 5 mg/dL (7-18); BUN/Creat Ratio 6.6 RATIO (10-20); Calcium,Total 8.5 mg/dL (8.5-10.1); Chloride 112 mmol/L (98-107); Creatinine, Serum 0.76 mg/dL (0.70-1.30); EST Glomerular Filtration Rate 118 mL/min (>60); Est Glom Filt Rate - Afr Amer 142 mL/min (>60); Glucose 157 mg/dL (74-106); Potassium 3.7 mmol/L (3.5-5.1); Sodium Level 142 mmol/L (136-145)
[2019-07-13 23:54] LABS: Lactic Acid 1.6 mmol/L (0.4-2.0)
[2019-07-14] VITALS (8 sets, daily range): BP systolic 107–155; BP diastolic 62–82; PULSE 72–98; RESP 14–20; TEMP 36.4–37.3; O2SAT 95–98; BMI 42.2
[2019-07-14 00:10] LABS: Absolute Lymphocyte Count 1.29 X10^3/uL (0.83-4.51); Absolute Neutrophil Count 1.8 X10^3/uL (2.0-7.7); Basophil# 0.03 X10^3/uL; Basophil% 0.8 % (0-1); Eosinophil# 0.29 X10^3/uL; Eosinophils% 7.6 % (0-5); Hematocrit 33.9 % (40-54); Hemoglobin 11.6 g/dL (13.0-16.5); Lymphocyte # 1.29 X10^3/ul (4.0); Lymphocyte % 33.9 % (19-41); Mean Corp Hgb Conc 34.2 g/dL (32-36); Mean Corpuscular Hgb 30.1 pg (27.0-32.0); Mean Corpuscular Volume 87.8 fL (80-94); Mean Platelet Vol. 11.4 fl (6.2-12.0); Monocyte# 0.36 X10^3/uL; Monocyte% 9.5 % (0-10); NRBC Flagged by Analyzer 0 % (0-5); Neutrophil # 1.83 X10^3/uL (2.7-7.7); Neutrophil % 48.2 % (47-70); Platelet Count 72 K/mm3 (150-450); RBC Distribution Width CV 14.6 % (11.6-14.6); RBC Distribution Width SD 46.1 fl (35.1-43.9); Red Blood Count 3.86 M/mm3 (4.6-6.2); White Blood Count 3.8 K/mm3 (4.4-11.0)
--- NOTE | 2019-07-14 00:40 | PCM.HP.STD ---
Problem List (1) Cellulitis Status: Acute Qualifiers: Site of cellulitis: extremity Site of cellulitis of extremity: lower extremity Laterality: right Qualified Code(s): L03.115 - Cellulitis of right lower limb (2) Intervertebral disc disorder with radiculopathy of lumbar region Status: Chronic History of Present Illness Date of Admission: 07/14/19 Chief Complaint: swelling of right foot and right leg The patient is a 44 year old M with a significant history of DEAN; morbid obesity; MRSA infection of left leg; and multiple cellulitis and DVT of the right leg presenting with right foot and right leg swelling. Patient was admitted at our [facility] about 2 weeks ago for cellulitis. He was discharged home on Keflex. He finished taking the Keflex dose about 3 days ago and his cellulitic symptoms reoccurred. Associated with his symptoms is pain and erythema of his right foot and his right leg. He has a wound on his fowler that he sustained about 2 weeks ago from a JORJE hose. He thinks that his recurring cellulitis is from standing on his feet 12 hours at his job so he finally quit his job. He reports episodic drainage from his right calf which is chronic. Patient has appointment with wound care and is planning to see an infectious disease doctor at the wound care center. Doppler of his right leg in the emergency department was unremarkable for DVT. 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) Morbid obesity due to excess calories (Chronic) Diabetes mellitus with complication (Chronic) Edema (Chronic) Venous insufficiency (Chronic) Other intervertebral disc degeneration, lumbar region (Chronic) Other intervertebral disc degeneration, lumbar region (Chronic) Spinal stenosis of lumbar region with neurogenic claudication (Chronic) Spinal stenosis of lumbar region with neurogenic claudication (Chronic) Lumbar disc prolapse with compression radiculopathy (Chronic) Lumbar disc disease with radiculopathy (Chronic) Allergies No Known Allergies Allergy (Verified 07/13/19 22:18) Home Medications: Ambulatory Orders Medication Instructions Recorded Methocarbamol [Robaxin] 500 mg PO QHS 01/07/17 Dextroamp-Amphet ER 30 mg Cap 30 mg PO BID 01/17/19 Gabapentin [Neurontin] 300 mg PO BID 02/11/19 Ondansetron [Zofran Odt] 4 mg PO Q8H PRN PRN #20 tablet 02/14/19 Oxycodone [Oxyir] 5 mg PO TID 06/25/19 Cephalexin [Keflex] 500 mg PO Q6 #36 cap 06/27/19 Surgical History: cholecystectomy, - - Foot surgery, Finger surgery, Testicular surgery, ? EGD/Lazaro. Psychiatric History: Attn. deficit disorder Lives: With Family Smoking Status: Former smoker Tobacco Use: Cigarettes Alcohol: None - *Family History Maternal History Items: COPD, Hypertension Paternal History Items: Cancer Review of Systems Constitutional: Denies: Chills, Fever, Weight Change HEENT: Denies: Head Aches, Sinus Congestion, Sinus Drainage Cardiovascular: Denies: Chest Pain, Palpitations Respiratory: Denies: Cough, Shortness of breath at rest, Sputum production Gastrointestinal: Denies: Abdominal Pain, Nausea, Vomiting Genitourinary: Denies: Dysuria Musculoskeletal: Denies: Joint Pain, Joint Tenderness Skin: Reports: Skin Changes - Erythema and swelling of right foot and leg, Wounds - Right fowler; and abrasions on right calf. Denies: Rash Neurological: Reports: Numbness - Toes of right foot. Denies: Focal weakness, Tingling Psychiatric: Denies: Anxiety, Depression, Homicidal Ideations, Suicidal Ideations Hematologic/ Lymphatic: Denies: Easy Bruising, Easy Bleeding VTE Information - Inpt Only VTE Present on Admission: No VTE Mechan Device Prophylaxis: None VTE Pharm Prophylaxis ordered?: Yes - Physical Exam General: Alert, Oriented x3, Cooperative HEENT: Atraumatic, PERRLA, EOMI, Normocephalic Neck: Supple, No JVD, Negative Carotid Bruits Lungs: Clear to auscultation, Normal air movement Cardiovascular: Regular rate, No murmurs Abdomen: Bowel Sounds Present, Soft, Non Tender Extremities: Capillary Refill Less than 3 Seconds, Edema, Tenderness - Right foot Skin: Ulcer/ Wound - Right fowler; and with 2 areas of abrasions on cough, - - Erythema of right foot; prominence of the planatar side of metacarpophalangeal joint of right hallucis Musculoskeletal: No Muscle Wasting Neurological: Cranial nerves II-XII grossly intact Psych/Mental Status: Normal Affect, Appropriate Vital Signs Temp Pulse Resp BP Pulse Ox 98.4 F 88 14 150/86 H 97 07/13/19 22:15 07/13/19 22:15 07/13/19 22:15 07/13/19 22:15 07/13/19 22:15 Oxygen Delivery Method Room Air Weight: 154 kg Body Mass Index (BMI) 42.4 Finger Stick Blood Glucose 106 Laboratory Tests Past 24 Hrs 07/13/19 07/13/19 07/13/19 23:22 23:22 23:22 WBC Cancelled Corrected WBC Cancelled RBC Cancelled Hgb Cancelled Hct Cancelled MCV Cancelled MCH Cancelled MCHC Cancelled RDW Std Deviation Cancelled RDW Coeff of Ramya Cancelled Plt Count Cancelled MPV Cancelled Immature Gran % (Auto) Cancelled Neut % (Auto) Cancelled Lymph % (Auto) Cancelled Smith % (Auto) Cancelled Eos % (Auto) Cancelled Baso % (Auto) Cancelled Absolute Neuts (auto) Cancelled Absolute Lymphs (auto) Cancelled Total Counted Cancelled Neutrophils % (Manual) Cancelled Band Neutrophils % Cancelled Lymphocytes % (Manual) Cancelled Monocytes % (Manual) Cancelled Eosinophils % (Manual) Cancelled Basophils % (Manual) Cancelled Metamyelocytes % Cancelled Myelocytes % Cancelled Promyelocytes % Cancelled Blast Cells % Cancelled Plasma Cell % (Manual) Cancelled Other Cells % Cancelled Nucleated RBC % Cancelled Nucleated RBCs/100 WBC Cancelled Differential Comment Cancelled Diff Path Review Cancelled Hypersegmented Neuts Cancelled Atypical Lymphocytes Cancelled Reactive Lymphocytes Cancelled Smudge Cells Cancelled Toxic Granulation Cancelled Toxic Vacuolation Cancelled Dohle Bodies Cancelled Candi Rods Cancelled Platelet Estimate Cancelled Plt Morphology Comment Cancelled RBC Morphology Cancelled Polychromasia Cancelled Hypochromasia Cancelled Poikilocytosis Cancelled Basophilic Stippling Cancelled Anisocytosis Cancelled Microcytosis Cancelled Macrocytosis Cancelled Spherocytes Cancelled Sickle Cells Cancelled Target Cells Cancelled Tear Drop Cells Cancelled Ovalocytes Cancelled Stomatocytes Cancelled [place] Bodies Cancelled [place] Cells Cancelled Bite Cells Cancelled Crenated Cell Cancelled Acanthocytes (Spur) Cancelled Rouleaux Cancelled Schistocytes Cancelled Sodium 142 Potassium 3.7 Chloride 112 H Carbon Dioxide 26.0 Anion Gap 4 L BUN 5 L Creatinine 0.76 Estim Creat Clear Calc 146.70 Est GFR (MDRD) Af Amer 142 Est GFR (MDRD) Non-Af 118 BUN/Creatinine Ratio 6.6 L Glucose 157 H Lactic Acid 1.6 Calcium 8.5 07/14/19 00:01 WBC 3.8 L Corrected WBC RBC 3.86 L Hgb 11.6 L Hct 33.9 L MCV 87.8 MCH 30.1 MCHC 34.2 RDW Std Deviation 46.1 H RDW Coeff of Ramya 14.6 Plt Count 72 L MPV 11.4 Immature Gran % (Auto) 0.000 Neut % (Auto) 48.2 Lymph % (Auto) 33.9 Smith % (Auto) 9.5 Eos % (Auto) 7.6 H Baso % (Auto) 0.8 Absolute Neuts (auto) 1.8 L Absolute Lymphs (auto) 1.29 Total Counted Neutrophils % (Manual) Band Neutrophils % Lymphocytes % (Manual) Monocytes % (Manual) Eosinophils % (Manual) Basophils % (Manual) Metamyelocytes % Myelocytes % Promyelocytes % Blast Cells % Plasma Cell % (Manual) Other Cells % Nucleated RBC % 0 Nucleated RBCs/100 WBC Differential Comment Diff Path Review Hypersegmented Neuts Atypical Lymphocytes Reactive Lymphocytes Smudge Cells Toxic Granulation Toxic Vacuolation Dohle Bodies Candi Rods Platelet Estimate Plt Morphology Comment RBC Morphology Polychromasia Hypochromasia Poikilocytosis Basophilic Stippling Anisocytosis Microcytosis Macrocytosis Spherocytes Sickle Cells Target Cells Tear Drop Cells Ovalocytes Stomatocytes [place] Bodies [place] Cells Bite Cells Crenated Cell Acanthocytes (Spur) Rouleaux Schistocytes Sodium Potassium Chloride Carbon Dioxide Anion Gap BUN Creatinine Estim Creat Clear Calc Est GFR (MDRD) Af Amer Est GFR (MDRD) Non-Af BUN/Creatinine Ratio Glucose Lactic Acid Calcium Assessment/Plan All Active Problems Cellulitis (Acute) The patient is a 44 year old M with a significant history of DEAN cirrhosis; morbid obesity; MRSA infection of left leg; and multiple cellulitis and DVT of the right leg presenting with right foot and right leg swelling; erythema; pain and tenderness of the same extremity consistent with acute recurrent cellulitis. Acute recurrent cellulitis On previous admission patient responded well to Ancef and was discharged home on Keflex. At the emergency department patient received vancomycin. Will start patient on IV Ancef. On home oxycodone for back pain. Oxycodone. Continue for moderate pain. Morphine IV for severe pain. PRN Zofran ordered. Bowel protocol in place. Noted to have prominence of the plantar side of metacarpophalangeal joint of right hallucis. Patient can follow-up up with podiatry outpatient. Pancytopenia Review of old labs show that this is chronic. Patient is scheduled to see hematology as outpatient Trend CBC Degenerative joint disease of the back Pain medication as above Methocarbamol continued Morbid obesity Counseled. ADHD On amphetamines. DVT prophylaxis Subcutaneous Lovenox; weight-based. Code Visit Inpatient E&M: 14277 Init Hosp L3
[2019-07-14] MEDS: 0.9% Normal Saline 1,000 ML 999 ML IV (00:46)
[2019-07-14] MEDS: HYDROmorphone 1 MG/ML Syringe IV (00:51)
[2019-07-14] MEDS: oxyCODONE 5 MG Tablet PO ×4 (03:14→21:27)
[2019-07-14] MEDS: Cefazolin 1 GM/50 ML BAG IV (03:26)
[2019-07-14] MEDS: Morphine 4 MG/ML Syringe IV (06:40)
[2019-07-14] MEDS: 0.9% NaCl Peripheral Flush Adult/Peds IV (06:40)
[2019-07-14] MEDS: Enoxaparin 40 MG/0.4 ML Syringe SC ×2 (09:14→21:27)
[2019-07-14] MEDS: Gabapentin 300 MG Capsule PO ×2 (09:15→21:27)
[2019-07-14] MEDS: Senna/Docusate Sodium 1 Tablet PO (09:15)
[2019-07-14 12:27] LABS: Uric Acid 2.4 mg/dL (3.5-7.2)
--- NOTE | 2019-07-14 14:22 | PN_ITS ---
<John Breen - Last Filed: 07/14/19 14:22> Subjective: Ongoing pain, redness, warmth, swellling of the RLE, originating in foot/ankle area. This makes it painful and difficult to walk on. No fevers/chills. Pt states this occurred the day after stopping the keflex he was on as an outpatient. Since admission he denies any improvement. Wound distal to knee is 2/2 compression stocking cutting into the leg when it began swelling again. No discharge/drainage. No open wounds distal to this. Denies limited ROM or crepitus. - Physical Exam General: Alert, Oriented x3, Cooperative HEENT: Atraumatic, PERRLA, EOMI, Normocephalic Neck: Supple, No JVD, Negative Carotid Bruits Lungs: Clear to auscultation, Normal air movement Cardiovascular: Regular rate, No murmurs Abdomen: Bowel Sounds Present, Soft, Non Tender Extremities: No edema, Capillary Refill Less than 3 Seconds, Edema - 2-3+ edema Right foot/ankle. Skin: Rash Present - Right foot has erythematous, diffuse, changes Musculoskeletal: No Tenderness to Palpation of Joints or Extremities, - - RLE swelling, erythema, warmth, tenderness below knee especially in the right foot/ankle. No recent injury. Small open wound below knee without drainage. Diffuse soft swelling, no specific collection found. Callus right great toe pad. Neurological: Cranial nerves II-XII grossly intact Psych/Mental Status: Normal Affect, Appropriate, Alert and oriented to time, place, person, mood and affect Vital Signs Temp Pulse Resp BP Pulse Ox 98.0 F 85 14 155/74 H 96 07/14/19 12:00 07/14/19 12:00 07/14/19 12:00 07/14/19 12:00 07/14/19 12:00 Oxygen Delivery Method Room Air Weight: 337 lb 8.443 oz Body Mass Index (BMI) 42.2 Finger Stick Blood Glucose 106 Intake and Output for Last 24 Hours 07/12/19 07/13/19 07/14/19 23:59 23:59 23:59 Intake Total 1456.50 / 1456.50 Balance 1456.50 / 1456.50 Laboratory Tests Past 24 Hrs 07/13/19 07/13/19 07/13/19 23:22 23:22 23:22 WBC Cancelled Corrected WBC Cancelled RBC Cancelled Hgb Cancelled Hct Cancelled MCV Cancelled MCH Cancelled MCHC Cancelled RDW Std Deviation Cancelled RDW Coeff of Ramya Cancelled Plt Count Cancelled MPV Cancelled Immature Gran % (Auto) Cancelled Neut % (Auto) Cancelled Lymph % (Auto) Cancelled [place] % (Auto) Cancelled Eos % (Auto) Cancelled Baso % (Auto) Cancelled Absolute Neuts (auto) Cancelled Absolute Lymphs (auto) Cancelled Total Counted Cancelled Neutrophils % (Manual) Cancelled Band Neutrophils % Cancelled Lymphocytes % (Manual) Cancelled Monocytes % (Manual) Cancelled Eosinophils % (Manual) Cancelled Basophils % (Manual) Cancelled Metamyelocytes % Cancelled Myelocytes % Cancelled Promyelocytes % Cancelled Blast Cells % Cancelled Plasma Cell % (Manual) Cancelled Other Cells % Cancelled Nucleated RBC % Cancelled Nucleated RBCs/100 WBC Cancelled Differential Comment Cancelled Diff Path Review Cancelled Hypersegmented Neuts Cancelled Atypical Lymphocytes Cancelled Reactive Lymphocytes Cancelled Smudge Cells Cancelled Toxic Granulation Cancelled Toxic Vacuolation Cancelled Dohle Bodies Cancelled Candi Rods Cancelled Platelet Estimate Cancelled Plt Morphology Comment Cancelled RBC Morphology Cancelled Polychromasia Cancelled Hypochromasia Cancelled Poikilocytosis Cancelled Basophilic Stippling Cancelled Anisocytosis Cancelled Microcytosis Cancelled Macrocytosis Cancelled Spherocytes Cancelled Sickle Cells Cancelled Target Cells Cancelled Tear Drop Cells Cancelled Ovalocytes Cancelled Stomatocytes Cancelled [place] Bodies Cancelled [place] Cells Cancelled Bite Cells Cancelled Crenated Cell Cancelled Acanthocytes (Spur) Cancelled Rouleaux Cancelled Schistocytes Cancelled Sodium 142 Potassium 3.7 Chloride 112 H Carbon Dioxide 26.0 Anion Gap 4 L BUN 5 L Creatinine 0.76 Estim Creat Clear Calc 146.70 Est GFR (MDRD) Af Amer 142 Est GFR (MDRD) Non-Af 118 BUN/Creatinine Ratio 6.6 L Glucose 157 H Lactic Acid 1.6 Uric Acid Calcium 8.5 07/14/19 07/14/19 00:01 12:00 WBC 3.8 L Corrected WBC RBC 3.86 L Hgb 11.6 L Hct 33.9 L MCV 87.8 MCH 30.1 MCHC 34.2 RDW Std Deviation 46.1 H RDW Coeff of Ramya 14.6 Plt Count 72 L MPV 11.4 Immature Gran % (Auto) 0.000 Neut % (Auto) 48.2 Lymph % (Auto) 33.9 [place] % (Auto) 9.5 Eos % (Auto) 7.6 H Baso % (Auto) 0.8 Absolute Neuts (auto) 1.8 L Absolute Lymphs (auto) 1.29 Total Counted Neutrophils % (Manual) Band Neutrophils % Lymphocytes % (Manual) Monocytes % (Manual) Eosinophils % (Manual) Basophils % (Manual) Metamyelocytes % Myelocytes % Promyelocytes % Blast Cells % Plasma Cell % (Manual) Other Cells % Nucleated RBC % 0 Nucleated RBCs/100 WBC Differential Comment Diff Path Review Hypersegmented Neuts Atypical Lymphocytes Reactive Lymphocytes Smudge Cells Toxic Granulation Toxic Vacuolation Dohle Bodies Candi Rods Platelet Estimate Plt Morphology Comment RBC Morphology Polychromasia Hypochromasia Poikilocytosis Basophilic Stippling Anisocytosis Microcytosis Macrocytosis Spherocytes Sickle Cells Target Cells Tear Drop Cells Ovalocytes Stomatocytes [place] Bodies [place] Cells Bite Cells Crenated Cell Acanthocytes (Spur) Rouleaux Schistocytes Sodium Potassium Chloride Carbon Dioxide Anion Gap BUN Creatinine Estim Creat Clear Calc Est GFR (MDRD) Af Amer Est GFR (MDRD) Non-Af BUN/Creatinine Ratio Glucose Lactic Acid Uric Acid 2.4 L Calcium Medical Necessity - Tobacco Use Smoking Status: Former smoker Tobacco Use: Cigarettes Assessment/Plan All Active Problems Cellulitis (Acute) 1. Recurrent cellulitis vs gout/pseudogout - pain swelling warmth and redness recurred after completing Keflex. Since presentation he has been on ancef and vanc. no improvement on abx. No fever/chills/leukcytosis. Prednisone started. Uric acid level negative. Abx stopped. Venous US negative for DVT -Colchicine should be avoided in patients with chronic hepatic impairment. 2. Pancytopenia likely 2/2 DEAN - trend. 3. Hx DVT - does not chronically take anticoagulation, has had 2 DVTs in the past. As above, US negative. 4. Morbid obesity - dietary eval. 5. ADHD - stimulants held at admission 6. DJD spine - robaxin, gabapentin DVT ppx: lovenox DC planning: monitor for improvement with steroids. This patient was seen by John Breen PA-C Under the supervision of Dr. Knowles <Robe Knowles - Last Filed: 07/14/19 15:41> Subjective: States that his foot is unchanged despite antibiotics. Previously when he had cellulitis, it involved much of his lower leg. - Physical Exam General: Alert, Cooperative HEENT: Atraumatic, Normocephalic Extremities: - - swelling and erythema on dorsum of right foot with TTP Psych/Mental Status: Normal Affect, Appropriate Vital Signs Temp Pulse Resp BP Pulse Ox 36.7 C 85 14 155/74 H 96 07/14/19 12:00 07/14/19 12:00 07/14/19 12:00 07/14/19 12:00 07/14/19 12:00 Oxygen Delivery Method Room Air Weight: 153.1 kg Body Mass Index (BMI) 42.2 Finger Stick Blood Glucose 106 Intake and Output for Last 24 Hours 07/12/19 07/13/19 07/14/19 23:59 23:59 23:59 Intake Total 1456.50 / 1456.50 Balance 1456.50 / 1456.50 Laboratory Tests Past 24 Hrs 07/13/19 07/13/19 07/13/19 23:22 23:22 23:22 WBC Cancelled Corrected WBC Cancelled RBC Cancelled Hgb Cancelled Hct Cancelled MCV Cancelled MCH Cancelled MCHC Cancelled RDW Std Deviation Cancelled RDW Coeff of Ramya Cancelled Plt Count Cancelled MPV Cancelled Immature Gran % (Auto) Cancelled Neut % (Auto) Cancelled Lymph % (Auto) Cancelled [place] % (Auto) Cancelled Eos % (Auto) Cancelled Baso % (Auto) Cancelled Absolute Neuts (auto) Cancelled Absolute Lymphs (auto) Cancelled Total Counted Cancelled Neutrophils % (Manual) Cancelled Band Neutrophils % Cancelled Lymphocytes % (Manual) Cancelled Monocytes % (Manual) Cancelled Eosinophils % (Manual) Cancelled Basophils % (Manual) Cancelled Metamyelocytes % Cancelled Myelocytes % Cancelled Promyelocytes % Cancelled Blast Cells % Cancelled Plasma Cell % (Manual) Cancelled Other Cells % Cancelled Nucleated RBC % Cancelled Nucleated RBCs/100 WBC Cancelled Differential Comment Cancelled Diff Path Review Cancelled Hypersegmented Neuts Cancelled Atypical Lymphocytes Cancelled Reactive Lymphocytes Cancelled Smudge Cells Cancelled Toxic Granulation Cancelled Toxic Vacuolation Cancelled Dohle Bodies Cancelled Candi Rods Cancelled Platelet Estimate Cancelled Plt Morphology Comment Cancelled RBC Morphology Cancelled Polychromasia Cancelled Hypochromasia Cancelled Poikilocytosis Cancelled Basophilic Stippling Cancelled Anisocytosis Cancelled Microcytosis Cancelled Macrocytosis Cancelled Spherocytes Cancelled Sickle Cells Cancelled Target Cells Cancelled Tear Drop Cells Cancelled Ovalocytes Cancelled Stomatocytes Cancelled [place] Bodies Cancelled [place] Cells Cancelled Bite Cells Cancelled Crenated Cell Cancelled Acanthocytes (Spur) Cancelled Rouleaux Cancelled Schistocytes Cancelled Sodium 142 Potassium 3.7 Chloride 112 H Carbon Dioxide 26.0 Anion Gap 4 L BUN 5 L Creatinine 0.76 Estim Creat Clear Calc 146.70 Est GFR (MDRD) Af Amer 142 Est GFR (MDRD) Non-Af 118 BUN/Creatinine Ratio 6.6 L Glucose 157 H Lactic Acid 1.6 Uric Acid Calcium 8.5 07/14/19 07/14/19 00:01 12:00 WBC 3.8 L Corrected WBC RBC 3.86 L Hgb 11.6 L Hct 33.9 L MCV 87.8 MCH 30.1 MCHC 34.2 RDW Std Deviation 46.1 H RDW Coeff of Ramya 14.6 Plt Count 72 L MPV 11.4 Immature Gran % (Auto) 0.000 Neut % (Auto) 48.2 Lymph % (Auto) 33.9 [place] % (Auto) 9.5 Eos % (Auto) 7.6 H Baso % (Auto) 0.8 Absolute Neuts (auto) 1.8 L Absolute Lymphs (auto) 1.29 Total Counted Neutrophils % (Manual) Band Neutrophils % Lymphocytes % (Manual) Monocytes % (Manual) Eosinophils % (Manual) Basophils % (Manual) Metamyelocytes % Myelocytes % Promyelocytes % Blast Cells % Plasma Cell % (Manual) Other Cells % Nucleated RBC % 0 Nucleated RBCs/100 WBC Differential Comment Diff Path Review Hypersegmented Neuts Atypical Lymphocytes Reactive Lymphocytes Smudge Cells Toxic Granulation Toxic Vacuolation Dohle Bodies Candi Rods Platelet Estimate Plt Morphology Comment RBC Morphology Polychromasia Hypochromasia Poikilocytosis Basophilic Stippling Anisocytosis Microcytosis Macrocytosis Spherocytes Sickle Cells Target Cells Tear Drop Cells Ovalocytes Stomatocytes [place] Bodies [place] Cells Bite Cells Crenated Cell Acanthocytes (Spur) Rouleaux Schistocytes Sodium Potassium Chloride Carbon Dioxide Anion Gap BUN Creatinine Estim Creat Clear Calc Est GFR (MDRD) Af Amer Est GFR (MDRD) Non-Af BUN/Creatinine Ratio Glucose Lactic Acid Uric Acid 2.4 L Calcium Assessment/Plan Patient seen and examined independently. Data reviewed. I agree with the above note by the physician legal assistant. 1. Right foot erythema: I am suspecting that this may actually not be cellulitis given that he did not improve with antibiotics which include vancomycin and a ceftezole and. The appearance clinically seems to be more consistent with gout, [place] not the typical location being on the dorsum of his foot. It is however more exquisitely tender than anywhere else on his leg. I discussed with the patient and his that this could be the possibility and the plan would be to discontinue the antibiotics and start him on prednisone. Patient not a candidate for colchicine given his liver disease. If patient improves by tomorrow then that would be a likely diagnosis and then just have him continue with burst of prednisone to completion. And no antibiotics. They both seemed comfortable during this conversation and all questions were answered. I explained to them both that if things get worse then I would have low threshold to reinitiate antibiotics. Uric acid was performed and was actually low at 2.4 however uric acid can be normal levels during acute flare. Code Visit Procedures: Other Procedure - See Report - non-billable rounding.
[2019-07-14] MEDS: predniSONE 20 MG Tablet 60 MG PO (15:39)
--- NOTE | 2019-07-14 16:13 | CASEMGMT ---
RN CM Assessment Introduced role of RN CM to patient and patient Carmencita at bedside.? Patient is alert, oriented and able?to participate in RN CM Assessment. ?Care providers, pharmacy, and demographics verified. Presentation: Patient was recently admitted for Cellulitis and finished antibiotics a few days ago. C/o worsening of pain, swelling. and redness to Rt foot. Admit Dx: Cellulitis Re-Admit: Yes, 06/25-06/27/19 for Cellulitis Barriers/Issues: Patient states with his chronic medical conditions that it has been getting harder for him to walk further distances and was inquiring about an electric scooter, this writer producer advised him to discuss with his physician and probably have to see physical medicine for prescription and approval. This writer producer did discuss some superintendent terminal planning such as DIANA and additional services that may beneficial . PCP: Joselyn Cummings Specialists: Liver- Dr Corley, Pain- Dr Beck (In Dr Murrieta's office) Preferred Pharmacy: [facility] [place], [place] Insurance: UMR Rx Benefit: Yes? ?LNOK: Carmencita Ceballos LW/HPOA: None, Declines offered information Living Arrangements:?Lives with and kids in a 2 story home, 3 steps to enter ADL?s: Independent with ambulation and ADLs Transportation: Both patient and drive DME: CPAP- cannot recall which DME company, Denies any other DME HHC: None SNF: None Goal: Home and does not think will have any needs. Denies any questions/concerns/issues with DC planning at this time. Aware CM remains available for any emerging needs. DC PLAN: Home with no anticipated needs identified. JACQUELYN Fraser
[2019-07-14] MEDS: Methocarbamol 500 MG Tablet PO (21:27)
[2019-07-15 03:30] VITALS: BP 149/65; PULSE 96; RESP 16; TEMP 36.3; O2SAT 96
[2019-07-15] MEDS: oxyCODONE 5 MG Tablet PO (06:01)
[2019-07-15 07:02] LABS: Absolute Lymphocyte Count 0.98 X10^3/uL (0.83-4.51); Absolute Neutrophil Count 3.1 X10^3/uL (2.0-7.7); Basophil# 0.03 X10^3/uL; Basophil% 0.6 % (0-1); Eosinophil# 0.19 X10^3/uL; Eosinophils% 4.1 % (0-5); Hematocrit 33.5 % (40-54); Hemoglobin 11.5 g/dL (13.0-16.5); Lymphocyte # 0.98 X10^3/ul (4.0); Lymphocyte % 21.1 % (19-41); Mean Corp Hgb Conc 34.3 g/dL (32-36); Mean Corpuscular Hgb 30.4 pg (27.0-32.0); Mean Corpuscular Volume 88.6 fL (80-94); Mean Platelet Vol. 11.4 fl (6.2-12.0); Monocyte% 6.5 % (0-10); NRBC Flagged by Analyzer 0 % (0-5); Neutrophil # 3.14 X10^3/uL (2.7-7.7); Neutrophil % 67.7 % (47-70); Platelet Count 68 K/mm3 (150-450); RBC Distribution Width CV 14.3 % (11.6-14.6); RBC Distribution Width SD 46.1 fl (35.1-43.9); Red Blood Count 3.78 M/mm3 (4.6-6.2); White Blood Count 4.6 K/mm3 (4.4-11.0)
--- NOTE | 2019-07-15 07:47 | DCINST_ITS ---
You will use the following diet at home:: Regular Your food should be the consistency of: Regular Your liquids should be the consistency of: Regular/Thin Discharge Activity: Return to Normal Activity Call your doctor if your incision/area has: Increased Pain/ Swelling, Increased Redness Call your doctor if you observe: Fever of 101 or Higher Allergies/Adverse Reactions: Allergies No Known Allergies Allergy (Verified 07/13/19 22:18) Medications to take at Discharge Methocarbamol [Robaxin] 500 mg PO QHS 01/07/17 Dextroamp-Amphet ER 30 mg Cap 30 mg PO BID 01/17/19 Gabapentin [Neurontin] 300 mg PO BID 02/11/19 Ondansetron [Zofran Odt] 4 mg PO Q8H PRN PRN #20 tablet 02/14/19 Oxycodone [Oxyir] 5 mg PO TID 06/25/19 predniSONE tablet 2 tab PO DAILY@0800 #6 tab 07/15/19 The following prescriptions were given: predniSONE tablet 2 tab PO DAILY@0800 #6 tab Transmission Status: Pending to [facility] Primary Care Physician: Joselyn Cummings DO [Primary Care Provider] - Within 1 Week Test Results: Test results from this visit will be discussed in further detail at your follow-up appointment, if applicable. Proposed Discharge Date: 07/15/19
--- NOTE | 2019-07-15 07:49 | PCM.DC.SUM ---
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) Morbid obesity due to excess calories (Chronic) Diabetes mellitus with complication (Chronic) Edema (Chronic) Venous insufficiency (Chronic) Other intervertebral disc degeneration, lumbar region (Chronic) Other intervertebral disc degeneration, lumbar region (Chronic) Spinal stenosis of lumbar region with neurogenic claudication (Chronic) Spinal stenosis of lumbar region with neurogenic claudication (Chronic) 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 No evidence of right lower extremity DVT. at 0012 Reported and signed by: Diego Cook MD Electronically Signed: Diego Cook, at 0:11 EDT Tel , Service support , Operations: None Procedures: None Summary of Care Provided: The patient is a 44 year old M presents with pain on the dorsum of his right foot. Patient also had redness. Patient recently completed treatment for right lower extremity cellulitis and then couple days later his foot got worse. Concern was for recurrent cellulitis and patient was started on vancomycin as well as cefazolin. Patient yesterday stated that his foot was getting better. On exam, patient had some localized swelling and bogginess on the dorsum of his right foot. Patient has overall swelling in his right lower extremity given history of DVT as compared to his left. So I discussed with the patient that I felt that this may actually not be cellulitis this time and could be possible gout. Stop the antibiotics yesterday and started him on prednisone. Today, the patient is doing better. Patient did have uric acid level that was drawn and was normal at 2.4. This does not rule out gout flare during possible acute gout flare but the patient will continue with burst of total 5 days of prednisone. Patient advised, given his history of cellulitis, if he has any increased redness or pain to notify his physician or come back into the emergency room. At home the way to definitively rule out gout would be to do a arthrocentesis but given the location of the dorsum of his foot that would be difficult to perform with this episode. I discussed with the patient that prednisone, given his liver disease is safe as short-term treatment. I told him that I would not be able to use colchicine given his known cirrhosis. [] Patient Problems: Active and Suspected Problems Gout attack (Suspected) - Physical Exam General: Alert, No apparent distress HEENT: Atraumatic, Normocephalic Skin: - - Resolved erythema on the dorsum of his right foot. Still with swelling and slight warmth. Vital Signs Temp Pulse Resp BP Pulse Ox 36.3 C L 96 16 149/65 H 96 07/15/19 03:30 07/15/19 03:30 07/15/19 03:30 07/15/19 03:30 07/15/19 03:30 Oxygen Delivery Method Room Air Weight: 153.1 kg Body Mass Index (BMI) 42.2 Finger Stick Blood Glucose 106 Intake and Output for Last 24 Hours 07/13/19 07/14/19 07/15/19 23:59 23:59 23:59 Intake Total 1456.50 / 1816.50 840 / 840 Balance 1456.50 / 1816.50 840 / 840 Laboratory Tests Past 24 Hrs 07/14/19 07/15/19 12:00 06:42 WBC 4.6 RBC 3.78 L Hgb 11.5 L Hct 33.5 L MCV 88.6 MCH 30.4 MCHC 34.3 RDW Std Deviation 46.1 H RDW Coeff of Ramya 14.3 Plt Count 68 L MPV 11.4 Immature Gran % (Auto) 0.000 Neut % (Auto) 67.7 Lymph % (Auto) 21.1 [place] % (Auto) 6.5 Eos % (Auto) 4.1 Baso % (Auto) 0.6 Absolute Neuts (auto) 3.1 Absolute Lymphs (auto) 0.98 Nucleated RBC % 0 Uric Acid 2.4 L Discharge Diet: 2000 mg Sodium Diet Discharge Activity: Return to Normal Activity Call your doctor if your incision/area has: Increased Pain/ Swelling, Increased Redness Call your doctor if you observe: Fever of 101 or Higher Home Medications: Medications to take at Discharge Methocarbamol [Robaxin] 500 mg PO QHS 01/07/17 Dextroamp-Amphet ER 30 mg Cap 30 mg PO BID 01/17/19 Gabapentin [Neurontin] 300 mg PO BID 02/11/19 Ondansetron [Zofran Odt] 4 mg PO Q8H PRN PRN #20 tablet 02/14/19 Oxycodone [Oxyir] 5 mg PO TID 06/25/19 predniSONE tablet 2 tab PO DAILY@0800 #6 tab 07/15/19 Following Prescrptions Were Given to Patient: predniSONE tablet 2 tab PO DAILY@0800 #6 tab Transmission Status: Pending to [facility] Primary Care Physician: Joselyn Cummings DO [Primary Care Provider] - Within 1 Week Disposition: Home Minutes spent on discharge:: 28 Patient Condition:: Good Medical Necessity - Tobacco Use Smoking Status: Former smoker Tobacco Use: Cigarettes Meaningful Use Info Meaningful Use Diagnoses (Choose all that apply): None applicable Code Visit Inpatient E&M: 70693 Disch Hosp
[2019-07-15] MEDS: predniSONE 20 MG Tablet 40 MG PO (08:45)
[2019-07-15] MEDS: Gabapentin 300 MG Capsule PO (08:45)
--- NOTE | 2019-07-18 15:56 | CASEMGMT ---
MARIA EUGENIA BERMUDEZ F/U Phone Call LACE: 12 Strata: 4 Discharge date: 07/15/19 Call date: 07/18/19 Call time: [id number] Duration: 1 minute Admission dx: Gout attack Pt states has been 'alright' since discharge. Pt states no questions regarding discharge instructions or medications at this time. Pt states that area is still sl. red but swelling is 'much better.' Pt states has f/u with PCP on thursday. Pt states no suggestions for [facility] at this time. Pt states no further questions/concerns/needs at this time. S[place]en MARIA EUGENIA CM
== END 2019-07-15 09:06 | disposition home or self-care (01) | DRG 554 ==
LOC: ED 22:43 → PCU 07-14 00:56
PROVIDERS: Physician Assistant; Admitting Provider Hospitalist; Emergency Provider Emergency Medicine; Family Provider Internal Medicine; PCP Internal Medicine
DX: M10.9 Gout, unspecified (principal); D61.818 Other pancytopenia; Z68.41 Body mass index [BMI] 40.0-44.9, adult; M47.9 Spondylosis, unspecified; E66.01 Morbid (severe) obesity due to excess calories; F90.9 Attention-deficit hyperactivity disorder, unspecified type; Z86.718 Personal history of other venous thrombosis and embolism; K74.60 Unspecified cirrhosis of liver; K75.81 Nonalcoholic steatohepatitis (NASH); E11.9 Type 2 diabetes mellitus without complications; I87.2 Venous insufficiency (chronic) (peripheral)
CPT/HCPCS: 36415; 80048; 83605; 84550; 85025; 87040; 93971; 97802; 99285; J7030; A4216

== ENCOUNTER 2019-08-11 10:15 | Outpatient (RCR) | payer OTHER, SELFPAY ==
[2019-07-14 01:35] VITALS: BMI 42.2
[2019-07-20 08:32] VITALS: BP 156/80; PULSE 89; RESP 20; TEMP 37.4; BMI 41.3
--- NOTE | 2019-07-20 17:04 | PCM.WC.HP ---
(1) Ulcer of right lower extremity with fat layer exposed Status: Acute Current Visit: Yes Code(s): L97.912 - Non-pressure chronic ulcer of unspecified part of right lower leg with fat layer exposed (2) Venous insufficiency Status: Chronic Current Visit: Yes (3) DVT (deep venous thrombosis) Status: Inactive Current Visit: No Code(s): I82.409 - Acute embolism and thrombosis of unspecified deep veins of unspecified lower extremity History of Present Illness Date of Service: 07/20/19 Chief Complaint: Recurrent right lower extremity swelling and right leg ulcer. History of Wound: Mr. Ceballos is a 44-year-old who was referred to the wound center due to recurrent right lower extremity swelling. He is status post several hospital admissions/management for right lower extremity cellulitis. Most recent symptoms said to have started in December at which time he also had a DVT. Has had 2 DVTs in his right lower extremity and subsequently has noted significant swelling in his right as compared to his left. He also recently noted a right leg ulcer. Started out as a blister after use of his compression stockings. Conservative measures have not been helpful. Denies chills, fever otherwise feeling of unwell. 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) Morbid obesity due to excess calories (Chronic) Diabetes mellitus with complication (Chronic) Edema (Chronic) Venous insufficiency (Chronic) Other intervertebral disc degeneration, lumbar region (Chronic) Other intervertebral disc degeneration, lumbar region (Chronic) Spinal stenosis of lumbar region with neurogenic claudication (Chronic) Spinal stenosis of lumbar region with neurogenic claudication (Chronic) 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 EGD/[facility]. Allergies/Adverse Reactions: Allergies No Known Allergies Allergy (Verified 07/13/19 22:18) Home Medications: Ambulatory Orders Medication Instructions Recorded Methocarbamol [Robaxin] 500 mg PO QHS 01/07/17 Dextroamp-Amphet ER 30 mg Cap 30 mg PO BID 01/17/19 Gabapentin [Neurontin] 300 mg PO BID 02/11/19 Ondansetron [Zofran Odt] 4 mg PO Q8H PRN PRN #20 tablet 02/14/19 Oxycodone [Oxyir] 5 mg PO TID 06/25/19 Furosemide [Lasix] 20 mg PO DAILY 07/20/19 Spironolactone [Aldactone] 07/20/19 - Family History Maternal COPD, Hypertension Paternal Cancer Smoking Status: Former smoker Review of Systems Constitutional: Denies: Anorexia, Chills, Fever Eyes: Denies: Blurred vision, Pain, Redness HEENT: Denies: Difficulty Swallowing Cardiovascular: Denies: Chest Pain, Chest Pressure Respiratory: Denies: Hemoptysis Gastrointestinal: Denies: Abdominal Pain, Hematemesis, Vomiting Skin: Denies: Jaundice - Physical Exam Vital Signs Temp Pulse Resp BP 99.3 F H 89 20 H 156/80 H 07/20/19 08:32 07/20/19 08:32 07/20/19 08:32 07/20/19 08:32 General: Alert, Oriented x3, Cooperative, No apparent distress HEENT: Atraumatic, Normocephalic Oral: Moist Mucosa Neck: Supple Lungs: Normal air movement Cardiovascular: Regular rate, Regular Rhythm, Normal S1, Normal S2 Abdomen: Non Tender, Obese Extremities: No cyanosis Skin: Ulcer/ Wound Wound Measurements and Assessment WC - Nurse 1 - General Ulcer Measurement Start: 07/20/19 08:28 Freq: Status: Active Protocol: Activity Type Activity Date Activity User E-Sign Co-Sign Detail Recorded Client Recorded Date Recorded By Document 07/20/19 08:32 DL [id number] 07/20/19 08:55 DL 07/20/19 08:32 Wound Center Nurse 1 [Ulcer Assessment] #3 R Calf -Current Size (cm) - Length 0.3 -Current Size (cm) - Width 0.3 -Current Size (cm) - Depth 0.1 -Total Square Cm 0.09 -Photo Taken Yes -Exudate Amt None Present -Wound Margin Distinct, Outline Attached -Granulation Amt None Present (0 %) -Necrosis Amt Small (1-33%) -Necrotic Tissue Type Adherent Slough -Structure Exposed N/A -Texture (Meghna-wound Skin Appearance) Induration, Localized Edema -Moisture (Meghna-wound Skin Appearance No Abnormality ) -Color (Meghna-wound Skin Appearance) Erythema -Temperature (Meghna-wound Skin No Abnormality Appearance) (Pt Warm) -Tenderness on Palpation (Meghna-wound No Skin Appearance) -Ulcer Cleansing Rinsed/ Irrigated with Saline -Foul Odor after Cleansing No -Anesthetic Used 5% Lidocaine Gel #2 R Upper LE -Current Size (cm) - Length 0.7 -Current Size (cm) - Width 1.8 -Current Size (cm) - Depth 0.2 -Total Square Cm 1.26 -Photo Taken Yes -Exudate Amt None Present -Wound Margin Thickened -Granulation Amt None Present (0 %) -Necrosis Amt Large (67-100%) -Necrotic Tissue Type Adherent Slough -Structure Exposed N/A -Texture (Meghna-wound Skin Appearance) Localized Edema ,Scarring -Moisture (Meghna-wound Skin Appearance No Abnormality ) -Color (Meghna-wound Skin Appearance) Erythema -Temperature (Meghna-wound Skin No Abnormality Appearance) (Pt Warm) -Tenderness on Palpation (Meghna-wound No Skin Appearance) -Ulcer Cleansing Rinsed/ Irrigated with Saline -Foul Odor after Cleansing No -Anesthetic Used 5% Lidocaine Gel [Edema Assessment] -Right Calf (cm) 50.5 -Right Ankle (cm) 30.4 -Left Calf (cm) 44 -Left Ankle (cm) 30.4 WC - Nurse 2 - General Ulcer CM Notes Start: 07/20/19 08:28 Freq: Status: Active Protocol: Activity Type Activity Date Activity User E-Sign Co-Sign Detail Recorded Client Recorded Date Recorded By Document 07/20/19 09:33 MW [id number] 07/20/19 09:41 MW 07/20/19 09:33 Wound Center Nurse 2 [Procedure/Treatment] #3 R Calf -Time 09:34 -Correct Patient Yes -Correct Side, Site, Position Yes -Correct Procedure Yes -Procedure Performed No -Post Debridement Size (cm) - Length 0 -Post Debridement Size (cm) - Width 0 -Post Debridement Size (cm) - Depth 0 -Total Square Cm 0 -Wound/Ulcer Outcome Healed- Epithelialized -Treatment Response Procedure Tolerated Well #2 R Upper LE -Time 09:35 -Correct Patient Yes -Correct Side, Site, Position Yes -Correct Procedure Yes -Procedure Performed Yes -Type of Procedure Debridement -Clinical Debridement Subcutaneous -Post Debridement Size (cm) - Length 0.6 -Post Debridement Size (cm) - Width 2.0 -Post Debridement Size (cm) - Depth 0.2 -Total Square Cm 1.20 -Wound/Ulcer Outcome Not Healed -Ulcer Cleansing Rinsed/ Irrigated with Saline -Foul Odor after Cleansing No -Bioengineered Tissue No -Bleeding Controlled with Pressure -Offloading No -Treatment Response Procedure Tolerated Well [See Physician Procedure note for Specifics] Pain Scale: 0-10 Numeric [Pain] -Is Patient Pain Free? Yes Musculoskeletal: No Muscle Wasting Neurological: Cranial nerves II-XII grossly intact Psych/Mental Status: Normal Affect Debridement Note Post-Debridement Measurements/Treatment WC - Nurse 2 - General Ulcer CM Notes Start: 07/20/19 08:28 Freq: Status: Active Protocol: Activity Type Activity Date Activity User E-Sign Co-Sign Detail Recorded Client Recorded Date Recorded By Document 07/20/19 09:33 MW [id number] 07/20/19 09:41 MW 07/20/19 09:33 Wound Center Nurse 2 #3 R Calf -Time 09:34 -Correct Patient Yes -Correct Side, Site, Position Yes -Correct Procedure Yes -Procedure Performed No -Post Debridement Size (cm) - Length 0 -Post Debridement Size (cm) - Width 0 -Post Debridement Size (cm) - Depth 0 -Total Square Cm 0 -Wound/Ulcer Outcome Healed- Epithelialized -Treatment Response Procedure Tolerated Well #2 R Upper LE -Time 09:35 -Correct Patient Yes -Correct Side, Site, Position Yes -Correct Procedure Yes -Procedure Performed Yes -Type of Procedure Debridement -Clinical Debridement Subcutaneous -Post Debridement Size (cm) - Length 0.6 -Post Debridement Size (cm) - Width 2.0 -Post Debridement Size (cm) - Depth 0.2 -Total Square Cm 1.20 -Wound/Ulcer Outcome Not Healed -Ulcer Cleansing Rinsed/ Irrigated with Saline -Foul Odor after Cleansing No -Bioengineered Tissue No -Bleeding Controlled with Pressure -Offloading No -Treatment Response Procedure Tolerated Well Pain Scale: 0-10 Numeric Is Patient Pain Free? Yes Wound debrided: Right leg Type of Debridement: Excisional debridement Anesthesia Used: 4% Lidocaine Solution Depth: Down to and including healthy tissue, in the subcutaneous layer Percentage of wound debrided: 100 Instrument Used: 3mm curette Tissue Removed: Slough and devitalized tissue Severity: Fat Layer Exposed Amount of bleeding with debridement: Mild Bleeding Controlled with: Pressure Patient tolerated procedure well Assessment/Plan Active Problems Ulcer of right lower extremity with fat layer exposed (Acute) Venous insufficiency (Chronic) Assessment: Recurrent right lower extremity swelling status post 2 episodes of DVT to his right leg. Right leg ulcer. Plan: Debridement done as documented above, procedure was well-tolerated. Patient's recurrent swelling may be due to post DVT syndrome/obstruction/venous insufficiency. Promogran moistened to right leg ulcer. 3M wrap for edema management. Arrangements are being made for thigh-high compression stockings (30 to 40 mmHg). Follow-up on Thursday for nurse visit/change. Exercise as tolerated, leg elevation also recommended. Increase protein intake. His questions were answered and he was advised to call with any further questions or concerns. Follow-up with me in a week. This note was generated with [employer] dictation software. It may contain incorrect words, spelling, and punctuation that were not noted in checking the note before signing.
[2019-07-22 08:24] VITALS: BP 160/85; PULSE 84; RESP 18; TEMP 37.1; BMI 41.3
[2019-07-27 09:42] VITALS: BP 155/87; PULSE 97; RESP 18; TEMP 37.7; BMI 41.3
--- NOTE | 2019-07-27 10:34 | PN.PCM_ITS ---
(1) Ulcer of right lower extremity with fat layer exposed Status: Acute Current Visit: Yes Code(s): L97.912 - Non-pressure chronic ulcer of unspecified part of right lower leg with fat layer exposed (2) Venous insufficiency Status: Chronic Current Visit: Yes Type of Wound Date of Service: 07/27/19 Chief Complaint: Recurrent right lower extremity swelling and right leg ulcer. History of Wound: Mr. Ceballos is a 44-year-old who was referred to the wound center due to recurrent right lower extremity swelling. He is status post [facility] hospital admissions/management for right lower extremity cellulitis. Most recent symptoms said to have started in December at which time he also had a DVT. Has had 2 DVTs in his right lower extremity and subsequently has noted significant swelling in his right as compared to his left. He also recently noted a right leg ulcer. Started out as a blister after use of his compression stockings. Conservative measures have not been helpful. Denies chills, fever otherwise feeling of unwell. Progress of Wound: Improving right leg ulcer and edema. New minimal left fowler wo und from scratching. - Physical Exam Vital Signs Temp Pulse Resp BP 99.8 F H 97 18 155/87 H 07/27/19 09:42 07/27/19 09:42 07/27/19 09:42 07/27/19 09:42 General: Alert, Oriented x3, Cooperative, No apparent distress HEENT: Atraumatic, Normocephalic Oral: Moist Mucosa Neck: Supple Lungs: Normal air movement Abdomen: Non Tender, Obese Extremities: No cyanosis Skin: Ulcer/ Wound Wound Measurements and Assessment WC - Nurse 1 - General Ulcer Measurement Start: 07/20/19 08:28 Freq: Status: Active Protocol: Activity Type Activity Date Activity User E-Sign Co-Sign Detail Recorded Client Recorded Date Recorded By Document 07/27/19 09:42 [id number] 07/27/19 09:56 07/27/19 09:42 Wound Center Nurse 1 [Ulcer Assessment] #4 Left fowler -Combined with other wound No -Current Size (cm) - Length 1.0 -Current Size (cm) - Width 0.3 -Current Size (cm) - Depth 0.1 -Total Square Cm 0.30 -Date of Last Picture (Recall this 07/27/19 field) -Photo Taken Yes -Epithelialization None Present -Tunneling No -Undermining/Tunneling No -Circular Undermining No -Exudate Amt Small -Exudate Type Serosanguineous -Wound Margin Distinct, Outline Attached -Granulation Amt Large (67-100%) -Granulation Quality Red -Slough/Fibrin Yes -Necrosis Amt None Present (0 %) -Necrotic Tissue Type Adherent Slough -Structure Exposed N/A -Texture (Meghna-wound Skin Appearance) No Abnormality, Assessed -Moisture (Meghna-wound Skin Appearance No Abnormality, ) Assessed -Color (Meghna-wound Skin Appearance) No Abnormality, Assessed -Temperature (Meghna-wound Skin No Abnormality Appearance) (Pt Warm) -Tenderness on Palpation (Meghna-wound No Skin Appearance) -Ulcer Cleansing Rinsed/ Irrigated with Saline -Foul Odor after Cleansing No -Anesthetic Used 4% Lidocaine Solution #2 R Upper LE -Combined with other wound No -Current Size (cm) - Length 0.7 -Current Size (cm) - Width 1.4 -Current Size (cm) - Depth 0.1 -Total Square Cm 0.98 -Photo Taken No -Epithelialization None Present -Tunneling No -Undermining/Tunneling No -Circular Undermining No -Exudate Amt Medium -Exudate Type Serosanguineous -Wound Margin Distinct, Outline Attached -Granulation Amt Small (1-33%) -Granulation Quality Red -Slough/Fibrin Yes -Necrosis Amt Small (1-33%) -Necrotic Tissue Type Adherent Slough -Structure Exposed N/A -Texture (Meghna-wound Skin Appearance) No Abnormality, Assessed -Moisture (Meghna-wound Skin Appearance Dry/Scaly ) -Color (Meghna-wound Skin Appearance) No Abnormality, Assessed -Temperature (Meghna-wound Skin No Abnormality Appearance) (Pt Warm) -Tenderness on Palpation (Meghna-wound No Skin Appearance) -Ulcer Cleansing Rinsed/ Irrigated with Saline -Foul Odor after Cleansing No -Anesthetic Used 4% Lidocaine Solution [Edema Assessment] -Lower Limb Edema Present No -Right Calf (cm) 42.7 -Right Ankle (cm) 27.0 -Left Calf (cm) 39.8 -Left Ankle (cm) 26.2 WC - Nurse 2 - General Ulcer CM Notes Start: 07/20/19 08:28 Freq: Status: Active Protocol: Activity Type Activity Date Activity User E-Sign Co-Sign Detail Recorded Client Recorded Date Recorded By Document 07/27/19 10:09 MW [id number] 07/27/19 10:13 MW 07/27/19 10:09 Wound Center Nurse 2 [Procedure/Treatment] #4 Left fowler -Time 10:10 -Correct Patient Yes -Correct Side, Site, Position Yes -Correct Procedure Yes -Procedure Performed No -Wound/Ulcer Outcome Not Healed -Ulcer Cleansing Not Cleansed -Bleeding Controlled with NA -Offloading No -Treatment Response Procedure Tolerated Well #2 R Upper LE -Time 10:10 -Correct Patient Yes -Correct Side, Site, Position Yes -Correct Procedure Yes -Procedure Performed Yes -Type of Procedure Debridement -Clinical Debridement Subcutaneous -Post Debridement Size (cm) - Length 0.5 -Post Debridement Size (cm) - Width 1.1 -Post Debridement Size (cm) - Depth 0.1 -Total Square Cm 0.55 -Wound/Ulcer Outcome Not Healed -Ulcer Cleansing Rinsed/ Irrigated with Saline -Foul Odor after Cleansing No -Bioengineered Tissue No -Bleeding Controlled with Pressure -Offloading No -Treatment Response Procedure Tolerated Well [See Physician Procedure note for Specifics] Pain Scale: 0-10 Numeric [Pain] -Is Patient Pain Free? Yes Musculoskeletal: No Muscle Wasting Neurological: Cranial nerves II-XII grossly intact Psych/Mental Status: Normal Affect Debridement Note Post-Debridement Measurements/Treatment WC - Nurse 2 - General Ulcer CM Notes Start: 07/20/19 08:28 Freq: Status: Active Protocol: Activity Type Activity Date Activity User E-Sign Co-Sign Detail Recorded Client Recorded Date Recorded By Document 07/20/19 09:33 MW [id number] 07/20/19 09:41 MW Document 07/27/19 10:09 MW [id number] 07/27/19 10:13 MW 07/20/19 07/27/19 09:33 10:09 Wound Center Nurse 2 #4 Left fowler -Time 10:10 -Correct Patient Yes -Correct Side, Site, Position Yes -Correct Procedure Yes -Procedure Performed No -Wound/Ulcer Outcome Not Healed -Ulcer Cleansing Not Cleansed -Bleeding Controlled with NA -Offloading No -Treatment Response Procedure Tolerated Well #3 R Calf -Time 09:34 -Correct Patient Yes -Correct Side, Site, Position Yes -Correct Procedure Yes -Procedure Performed No -Post Debridement Size (cm) - Length 0 -Post Debridement Size (cm) - Width 0 -Post Debridement Size (cm) - Depth 0 -Total Square Cm 0 -Wound/Ulcer Outcome Healed- Epithelialized -Treatment Response Procedure Tolerated Well #2 R Upper LE -Time 09:35 10:10 -Correct Patient Yes Yes -Correct Side, Site, Position Yes Yes -Correct Procedure Yes Yes -Procedure Performed Yes Yes -Type of Procedure Debridement Debridement -Clinical Debridement Subcutaneous Subcutaneous -Post Debridement Size (cm) - Length 0.6 0.5 -Post Debridement Size (cm) - Width 2.0 1.1 -Post Debridement Size (cm) - Depth 0.2 0.1 -Total Square Cm 1.20 0.55 -Wound/Ulcer Outcome Not Healed Not Healed -Ulcer Cleansing Rinsed/ Rinsed/ Irrigated with Irrigated with Saline Saline -Foul Odor after Cleansing No No -Bioengineered Tissue No No -Bleeding Controlled with Pressure Pressure -Offloading No No -Treatment Response Procedure Procedure Tolerated Well Tolerated Well Pain Scale: 0-10 Numeric Is Patient Pain Free? Yes Yes Wound debrided: Left Leg Type of Debridement: Excisional debridement Anesthesia Used: 4% Lidocaine Solution Depth: Down to and including healthy tissue, in the subcutaneous layer Percentage of wound debrided: 100 Instrument Used: 3mm curette Tissue Removed: Slough and devitalized tissue Amount of bleeding with debridement: Mild Bleeding Controlled with: Pressure Patient tolerated procedure well Assessment/Plan Active Problems Ulcer of right lower extremity with fat layer exposed (Acute) Venous insufficiency (Chronic) Assessment: Recurrent right lower extremity swelling status post 2 episodes of DVT to his right leg. Right leg ulcer. Plan: Debridement done as documented above, procedure was well-tolerated. Improving. Continue moistened pomogran to right leg ulcer. Adaptic to left fowler wound. 3M wrap for edema management. Now has thigh high compression stockings. Will start after healing. Exercise as tolerated, leg elevation also recommended. Increase protein intake. His questions were answered and he was advised to call with any further questions or concerns. Follow-up with me in a week. This note was generated with [employer] software. It may contain incorrect words, spelling, and punctuation that were not noted in checking the note before signing.
[2019-08-04 09:43] VITALS: BP 163/82; PULSE 81; RESP 16; TEMP 37.5; BMI 41.3
--- NOTE | 2019-08-04 10:19 | PN.PCM_ITS ---
(1) Ulcer of right lower extremity with fat layer exposed Status: Acute Current Visit: Yes Code(s): L97.912 - Non-pressure chronic ulcer of unspecified part of right lower leg with fat layer exposed (2) Venous insufficiency Status: Chronic Current Visit: Yes Type of Wound Date of Service: 08/04/19 Chief Complaint: Recurrent right lower extremity swelling and right leg ulcer. History of Wound: Mr. Ceballos is a 44-year-old who was referred to the wound center due to recurrent right lower extremity swelling. He is status post [facility] hospital admissions/management for right lower extremity cellulitis. Most recent symptoms said to have started in December at which time he also had a DVT. Has had 2 DVTs in his right lower extremity and subsequently has noted significant swelling in his right as compared to his left. He also recently noted a right leg ulcer. Started out as a blister after use of his compression stockings. Conservative measures have not been helpful. Denies chills, fever otherwise feeling of unwell. Progress of Wound: Improving. No new concerns at this time. - Physical Exam Vital Signs Temp Pulse Resp BP 99.5 F H 81 16 163/82 H 08/04/19 09:43 08/04/19 09:43 08/04/19 09:43 08/04/19 09:43 General: Alert, Oriented x3, Cooperative, No apparent distress HEENT: Atraumatic, Normocephalic Oral: Moist Mucosa Neck: Supple Lungs: Normal air movement Abdomen: Non Tender, Obese Extremities: No cyanosis, Edema Skin: Ulcer/ Wound Wound Measurements and Assessment WC - Nurse 1 - General Ulcer Measurement Start: 07/20/19 08:28 Freq: Status: Active Protocol: Activity Type Activity Date Activity User E-Sign Co-Sign Detail Recorded Client Recorded Date Recorded By Document 08/04/19 09:43 [facility] [id number] 08/04/19 09:56 [facility] 08/04/19 09:43 Wound Center Nurse 1 [Ulcer Assessment] #4 Left fowler -Combined with other wound No -Current Size (cm) - Length 0.1 -Current Size (cm) - Width 0.1 -Current Size (cm) - Depth 0.1 -Total Square Cm 0.01 -Photo Taken No -Epithelialization Large 67-100% -Tunneling No -Undermining/Tunneling No -Circular Undermining No -Exudate Amt None Present -Slough/Fibrin Yes -Necrosis Amt Small (1-33%) -Necrotic Tissue Type Eschar -Texture (Meghna-wound Skin Appearance) Assessed, Scarring -Moisture (Meghna-wound Skin Appearance Assessed,Dry/ ) Scaly -Color (Meghna-wound Skin Appearance) Assessed -Temperature (Meghna-wound Skin No Abnormality Appearance) (Pt Warm) -Tenderness on Palpation (Meghna-wound No Skin Appearance) -Ulcer Cleansing soap and water -Foul Odor after Cleansing No -Anesthetic Used 5% Lidocaine Gel #2 R Upper LE -Combined with other wound No -Current Size (cm) - Length 0.3 -Current Size (cm) - Width 0.7 -Current Size (cm) - Depth 0.1 -Total Square Cm 0.21 -Photo Taken No -Epithelialization Small 1-33% -Tunneling No -Undermining/Tunneling No -Circular Undermining No -Exudate Amt Small -Exudate Type Sanguineous -Wound Margin Distinct, Outline Attached -Granulation Amt Large (67-100%) -Granulation Quality Red -Slough/Fibrin No -Necrosis Amt None Present (0 %) -Texture (Meghna-wound Skin Appearance) Assessed -Moisture (Meghna-wound Skin Appearance Assessed,Dry/ ) Scaly -Color (Meghna-wound Skin Appearance) Assessed -Temperature (Meghna-wound Skin No Abnormality Appearance) (Pt Warm) -Tenderness on Palpation (Meghna-wound No Skin Appearance) -Ulcer Cleansing soap and water -Foul Odor after Cleansing No -Anesthetic Used 5% Lidocaine Gel [Edema Assessment] -Lower Limb Edema Present Yes -Right Calf (cm) 42.8 -Right Ankle (cm) 25.1 -Left Calf (cm) 42.6 -Left Ankle (cm) 25.7 WC - Nurse 2 - General Ulcer CM Notes Start: 07/20/19 08:28 Freq: Status: Active Protocol: Activity Type Activity Date Activity User E-Sign Co-Sign Detail Recorded Client Recorded Date Recorded By Document 08/04/19 10:16 MW [id number] 08/04/19 10:19 MW 08/04/19 10:16 Wound Center Nurse 2 [Procedure/Treatment] #4 Left fowler -Time 10:18 -Correct Patient Yes -Correct Side, Site, Position Yes -Correct Procedure Yes -Procedure Performed No -Wound/Ulcer Outcome Not Healed -Ulcer Cleansing Not Cleansed -Foul Odor after Cleansing No -Bioengineered Tissue No -Bleeding Controlled with NA -Offloading No -Treatment Response Procedure Tolerated Well #2 R Upper LE -Time 10:17 -Correct Patient Yes -Correct Side, Site, Position Yes -Correct Procedure Yes -Procedure Performed Yes -Type of Procedure Debridement -Clinical Debridement Subcutaneous -Post Debridement Size (cm) - Length 0.3 -Post Debridement Size (cm) - Width 0.8 -Post Debridement Size (cm) - Depth 0.1 -Total Square Cm 0.24 -Wound/Ulcer Outcome Not Healed -Ulcer Cleansing Rinsed/ Irrigated with Saline -Foul Odor after Cleansing No -Bioengineered Tissue No -Bleeding Controlled with Pressure -Offloading No -Treatment Response Procedure Tolerated Well [See Physician Procedure note for Specifics] Pain Scale: 0-10 Numeric [Pain] -Is Patient Pain Free? Yes Musculoskeletal: No Muscle Wasting Neurological: Cranial nerves II-XII grossly intact Psych/Mental Status: Normal Affect Debridement Note Post-Debridement Measurements/Treatment WC - Nurse 2 - General Ulcer CM Notes Start: 07/20/19 08:28 Freq: Status: Active Protocol: Activity Type Activity Date Activity User E-Sign Co-Sign Detail Recorded Client Recorded Date Recorded By Document 07/20/19 09:33 MW [id number] 07/20/19 09:41 MW Document 07/27/19 10:09 MW [id number] 07/27/19 10:13 MW Document 08/04/19 10:16 MW [id number] 08/04/19 10:19 MW 07/20/19 07/27/19 08/04/19 09:33 10:09 10:16 Wound Center Nurse 2 #4 Left fowler -Time 10:10 10:18 -Correct Patient Yes Yes -Correct Side, Site, Position Yes Yes -Correct Procedure Yes Yes -Procedure Performed No No -Wound/Ulcer Outcome Not Healed Not Healed -Ulcer Cleansing Not Cleansed Not Cleansed -Foul Odor after Cleansing No -Bioengineered Tissue No -Bleeding Controlled with NA NA -Offloading No No -Treatment Response Procedure Procedure Tolerated Well Tolerated Well #3 R Calf -Time 09:34 -Correct Patient Yes -Correct Side, Site, Position Yes -Correct Procedure Yes -Procedure Performed No -Post Debridement Size (cm) - Length 0 -Post Debridement Size (cm) - Width 0 -Post Debridement Size (cm) - Depth 0 -Total Square Cm 0 -Wound/Ulcer Outcome Healed- Epithelialized -Treatment Response Procedure Tolerated Well #2 R Upper LE -Time 09:35 10:10 10:17 -Correct Patient Yes Yes Yes -Correct Side, Site, Position Yes Yes Yes -Correct Procedure Yes Yes Yes -Procedure Performed Yes Yes Yes -Type of Procedure Debridement Debridement Debridement -Clinical Debridement Subcutaneous Subcutaneous Subcutaneous -Post Debridement Size (cm) - Length 0.6 0.5 0.3 -Post Debridement Size (cm) - Width 2.0 1.1 0.8 -Post Debridement Size (cm) - Depth 0.2 0.1 0.1 -Total Square Cm 1.20 0.55 0.24 -Wound/Ulcer Outcome Not Healed Not Healed Not Healed -Ulcer Cleansing Rinsed/ Rinsed/ Rinsed/ Irrigated with Irrigated with Irrigated with Saline Saline Saline -Foul Odor after Cleansing No No No -Bioengineered Tissue No No No -Bleeding Controlled with Pressure Pressure Pressure -Offloading No No No -Treatment Response Procedure Procedure Procedure Tolerated Well Tolerated Well Tolerated Well Pain Scale: 0-10 Numeric Is Patient Pain Free? Yes Yes Yes Wound debrided: Right Leg Type of Debridement: Excisional debridement Anesthesia Used: 4% Lidocaine Solution Depth: Down to and including healthy tissue, in the subcutaneous layer Percentage of wound debrided: 100 Instrument Used: 3mm curette Tissue Removed: Slough and devitlized tissue Severity: Fat Layer Exposed Amount of bleeding with debridement: Mild Bleeding Controlled with: Pressure Patient tolerated procedure well Assessment/Plan Active Problems Ulcer of right lower extremity with fat layer exposed (Acute) Venous insufficiency (Chronic) Assessment: Recurrent right lower extremity swelling status post 2 episodes of DVT to his right leg. Right leg ulcer. Plan: Debridement done as documented above, procedure was well-tolerated. Improving. Continue moistened pomogran to right leg ulcer. Adaptic to left fowler wound. 3M wrap for edema management. Now has thigh high compression stockings. Will start after healing. Exercise as tolerated, leg elevation also recommended. Increase protein intake. His questions were answered and he was advised to call with any further questions or concerns. Follow-up with me in a week. This note was generated with [employer] software. It may contain incorrect words, spelling, and punctuation that were not noted in checking the note before signing.
[2019-08-11 10:17] VITALS: BP 157/85; PULSE 94; RESP 16; TEMP 37.6; BMI 41.3
--- NOTE | 2019-08-11 10:56 | PN.PCM_ITS ---
(1) Ulcer of right lower extremity with fat layer exposed Status: Acute Current Visit: Yes Code(s): L97.912 - Non-pressure chronic ulcer of unspecified part of right lower leg with fat layer exposed (2) Venous insufficiency Status: Chronic Current Visit: Yes Type of Wound Date of Service: 08/11/19 Chief Complaint: Recurrent right lower extremity swelling and right leg ulcer. History of Wound: Mr. Ceballos is a 44-year-old who was referred to the wound center due to recurrent right lower extremity swelling. He is status post [facility] hospital admissions/management for right lower extremity cellulitis. Most recent symptoms said to have started in December at which time he also had a DVT. Has had 2 DVTs in his right lower extremity and subsequently has noted significant swelling in his right as compared to his left. He also recently noted a right leg ulcer. Started out as a blister after use of his compression stockings. Conservative measures have not been helpful. Denies chills, fever otherwise feeling of unwell. Progress of Wound: Improving. No new concerns at this time. - Physical Exam Vital Signs Temp Pulse Resp BP 99.6 F H 94 16 157/85 H 08/11/19 10:17 08/11/19 10:17 08/11/19 10:17 08/11/19 10:17 General: Alert, Oriented x3, Cooperative, No apparent distress HEENT: Atraumatic, Normocephalic Oral: Moist Mucosa Neck: Supple Lungs: Normal air movement Extremities: No cyanosis, Edema Skin: Ulcer/ Wound Wound Measurements and Assessment WC - Nurse 1 - General Ulcer Measurement Start: 07/20/19 08:28 Freq: Status: Active Protocol: Activity Type Activity Date Activity User E-Sign Co-Sign Detail Recorded Client Recorded Date Recorded By Document 08/11/19 10:17 [facility] [id number] 08/11/19 10:26 [facility] 08/11/19 10:17 Wound Center Nurse 1 [Ulcer Assessment] #4 Left fowler -Combined with other wound No -Current Size (cm) - Length 0.1 -Current Size (cm) - Width 0.1 -Current Size (cm) - Depth 0.1 -Total Square Cm 0.01 -Epithelialization Large 67-100% #2 R Upper LE -Combined with other wound No -Current Size (cm) - Length 0.3 -Current Size (cm) - Width 0.9 -Current Size (cm) - Depth 0.1 -Total Square Cm 0.27 -Photo Taken No -Epithelialization Small 1-33% -Tunneling No -Undermining/Tunneling No -Circular Undermining No -Exudate Amt Small -Exudate Type Serosanguineous -Wound Margin Distinct, Outline Attached -Granulation Amt Large (67-100%) -Granulation Quality Red -Slough/Fibrin Yes -Necrosis Amt Small (1-33%) -Necrotic Tissue Type Adherent Slough -Texture (Meghna-wound Skin Appearance) Assessed, Scarring -Moisture (Meghna-wound Skin Appearance Assessed,Dry/ ) Scaly -Color (Meghna-wound Skin Appearance) Assessed -Temperature (Meghna-wound Skin No Abnormality Appearance) (Pt Warm) -Tenderness on Palpation (Meghna-wound No Skin Appearance) -Ulcer Cleansing SOAP AND WATER -Foul Odor after Cleansing No -Anesthetic Used 4% Lidocaine Solution [Edema Assessment] -Lower Limb Edema Present Yes -Right Calf (cm) 45.1 -Right Ankle (cm) 25.8 -Left Calf (cm) 41.5 -Left Ankle (cm) 27.3 WC - Nurse 2 - General Ulcer CM Notes Start: 07/20/19 08:28 Freq: Status: Active Protocol: Activity Type Activity Date Activity User E-Sign Co-Sign Detail Recorded Client Recorded Date Recorded By Document 08/11/19 10:46 MW [id number] 08/11/19 10:48 MW 08/11/19 10:46 Wound Center Nurse 2 [Procedure/Treatment] #4 Left fowler -Time 10:46 -Correct Patient Yes -Correct Side, Site, Position Yes -Correct Procedure Yes -Procedure Performed No -Post Debridement Size (cm) - Length 0 -Post Debridement Size (cm) - Width 0 -Post Debridement Size (cm) - Depth 0 -Total Square Cm 0 -Wound/Ulcer Outcome Healed- Epithelialized #2 R Upper LE -Time 10:47 -Correct Patient Yes -Correct Side, Site, Position Yes -Correct Procedure Yes -Procedure Performed Yes -Type of Procedure Debridement -Clinical Debridement Subcutaneous -Post Debridement Size (cm) - Length 0.2 -Post Debridement Size (cm) - Width 0.4 -Post Debridement Size (cm) - Depth 0.1 -Total Square Cm 0.08 -Wound/Ulcer Outcome Not Healed -Ulcer Cleansing Rinsed/ Irrigated with Saline -Foul Odor after Cleansing No -Bioengineered Tissue No -Bleeding Controlled with Pressure -Offloading No -Treatment Response Procedure Tolerated Well [See Physician Procedure note for Specifics] Pain Scale: 0-10 Numeric [Pain] -Is Patient Pain Free? Yes Musculoskeletal: No Muscle Wasting Neurological: Cranial nerves II-XII grossly intact Psych/Mental Status: Normal Affect Debridement Note Post-Debridement Measurements/Treatment WC - Nurse 2 - General Ulcer CM Notes Start: 07/20/19 08:28 Freq: Status: Active Protocol: Activity Type Activity Date Activity User E-Sign Co-Sign Detail Recorded Client Recorded Date Recorded By Document 07/20/19 09:33 MW [id number] 07/20/19 09:41 MW Document 07/27/19 10:09 MW [id number] 07/27/19 10:13 MW Document 08/04/19 10:16 MW [id number] 08/04/19 10:19 MW Document 08/11/19 10:46 MW [id number] 08/11/19 10:48 MW 07/20/19 07/27/19 08/04/19 09:33 10:09 10:16 Wound Center Nurse 2 #4 Left fowler -Time 10:10 10:18 -Correct Patient Yes Yes -Correct Side, Site, Position Yes Yes -Correct Procedure Yes Yes -Procedure Performed No No -Post Debridement Size (cm) - Length -Post Debridement Size (cm) - Width -Post Debridement Size (cm) - Depth -Total Square Cm -Wound/Ulcer Outcome Not Healed Not Healed -Ulcer Cleansing Not Cleansed Not Cleansed -Foul Odor after Cleansing No -Bioengineered Tissue No -Bleeding Controlled with NA NA -Offloading No No -Treatment Response Procedure Procedure Tolerated Well Tolerated Well #3 R Calf -Time 09:34 -Correct Patient Yes -Correct Side, Site, Position Yes -Correct Procedure Yes -Procedure Performed No -Post Debridement Size (cm) - Length 0 -Post Debridement Size (cm) - Width 0 -Post Debridement Size (cm) - Depth 0 -Total Square Cm 0 -Wound/Ulcer Outcome Healed- Epithelialized -Treatment Response Procedure Tolerated Well #2 R Upper LE -Time 09:35 10:10 10:17 -Correct Patient Yes Yes Yes -Correct Side, Site, Position Yes Yes Yes -Correct Procedure Yes Yes Yes -Procedure Performed Yes Yes Yes -Type of Procedure Debridement Debridement Debridement -Clinical Debridement Subcutaneous Subcutaneous Subcutaneous -Post Debridement Size (cm) - Length 0.6 0.5 0.3 -Post Debridement Size (cm) - Width 2.0 1.1 0.8 -Post Debridement Size (cm) - Depth 0.2 0.1 0.1 -Total Square Cm 1.20 0.55 0.24 -Wound/Ulcer Outcome Not Healed Not Healed Not Healed -Ulcer Cleansing Rinsed/ Rinsed/ Rinsed/ Irrigated with Irrigated with Irrigated with Saline Saline Saline -Foul Odor after Cleansing No No No -Bioengineered Tissue No No No -Bleeding Controlled with Pressure Pressure Pressure -Offloading No No No -Treatment Response Procedure Procedure Procedure Tolerated Well Tolerated Well Tolerated Well Pain Scale: 0-10 Numeric Is Patient Pain Free? Yes Yes Yes 08/11/19 10:46 Wound Center Nurse 2 #4 Left fowler -Time 10:46 -Correct Patient Yes -Correct Side, Site, Position Yes -Correct Procedure Yes -Procedure Performed No -Post Debridement Size (cm) - Length 0 -Post Debridement Size (cm) - Width 0 -Post Debridement Size (cm) - Depth 0 -Total Square Cm 0 -Wound/Ulcer Outcome Healed- Epithelialized -Ulcer Cleansing -Foul Odor after Cleansing -Bioengineered Tissue -Bleeding Controlled with -Offloading -Treatment Response #3 R Calf -Time -Correct Patient -Correct Side, Site, Position -Correct Procedure -Procedure Performed -Post Debridement Size (cm) - Length -Post Debridement Size (cm) - Width -Post Debridement Size (cm) - Depth -Total Square Cm -Wound/Ulcer Outcome -Treatment Response #2 R Upper LE -Time 10:47 -Correct Patient Yes -Correct Side, Site, Position Yes -Correct Procedure Yes -Procedure Performed Yes -Type of Procedure Debridement -Clinical Debridement Subcutaneous -Post Debridement Size (cm) - Length 0.2 -Post Debridement Size (cm) - Width 0.4 -Post Debridement Size (cm) - Depth 0.1 -Total Square Cm 0.08 -Wound/Ulcer Outcome Not Healed -Ulcer Cleansing Rinsed/ Irrigated with Saline -Foul Odor after Cleansing No -Bioengineered Tissue No -Bleeding Controlled with Pressure -Offloading No -Treatment Response Procedure Tolerated Well Pain Scale: 0-10 Numeric Is Patient Pain Free? Yes Wound debrided: Right Leg Type of Debridement: Selective debridement Anesthesia Used: 4% Lidocaine Solution Depth: Down to and including healthy tissue Percentage of wound debrided: 100 Tissue Removed: Slough and devitalized tissue Severity: Fat Layer Exposed Amount of bleeding with debridement: Mild Bleeding Controlled with: Pressure Patient tolerated procedure well Assessment/Plan Active Problems Ulcer of right lower extremity with fat layer exposed (Acute) Venous insufficiency (Chronic) Assessment: Recurrent right lower extremity swelling status post 2 episodes of DVT to his right leg. Right leg ulcer. Plan: Debridement done as documented above, procedure was well-tolerated. Improving. Continue moistened pomogran to right leg ulcer with adaptic over top. Change daily. Thigh high compression stockings daily for edema management. Exercise as tolerated, leg elevation also recommended. Increase protein intake. His questions were answered and he was advised to call with any further questions or concerns. Follow-up with me in a week. This note was generated with [employer] dictation software. It may contain incorrect words, spelling, and punctuation that were not noted in checking the note before signing.
== END 2019-08-11 23:59 ==
LOC: WC 10:15
PROVIDERS: Family Provider Internal Medicine; PCP Internal Medicine; Visit Provider Internal Medicine
DX: E11.622 Type 2 diabetes mellitus with other skin ulcer (principal); I87.2 Venous insufficiency (chronic) (peripheral); L97.812 Non-pressure chronic ulcer of other part of right lower leg with fat layer exposed; M79.89 Other specified soft tissue disorders; E66.01 Morbid (severe) obesity due to excess calories; Z68.41 Body mass index [BMI] 40.0-44.9, adult; Z71.3 Dietary counseling and surveillance; Z79.899 Other long term (current) drug therapy; Z86.718 Personal history of other venous thrombosis and embolism; Z87.891 Personal history of nicotine dependence
CPT/HCPCS: 11042; 29581; 97597; 99213; G0463

== ENCOUNTER 2019-08-18 09:25 | Outpatient (RCR) | payer OTHER, SELFPAY ==
[2019-08-12 01:23] VITALS: BP 157/85; PULSE 94; RESP 16; TEMP 37.6
== END 2019-09-10 23:59 ==
LOC: WC 09:25
PROVIDERS: Family Provider Internal Medicine; PCP Internal Medicine; Visit Provider Internal Medicine
DX: Z09 Encounter for follow-up examination after completed treatment for conditions other than malignant neoplasm (principal)

== ENCOUNTER → 2019-09-07 09:36 | Outpatient (CLI) | payer OTHER, SELFPAY ==
[2019-08-11 10:17] VITALS: BMI 41.3
--- NOTE | 2019-09-07 09:40 | BI_ITS ---
MAMMOGRAPHY - BILATERAL DIAGNOSTIC REASON FOR EXAM: Male, 44 years old. PERTINENT HISTORY: Non-contributory. TECHNIQUE: Digital examination. Mediolateral oblique (MLO) and craniocaudad (CC) views of both breasts were obtained. CAD: COMPARISON: None. FINDINGS: Breast Composition of scattered fibroglandular tissue Slight prominence of the fibroglandular tissue behind the nipple on the left. There is focal area of density with the microcalcifications in the left axilla. Apparently this is a mole with some deodorant particles and this was markedly by the tech as seen on the patient's skin , it is not significant. No abnormality detected on the right side BI/DIAG MAMM W/CAD, BILAT IMPRESSION: Prominence of the fibroglandular tissue on the left no masses seen patient had ultrasound as well, please refer to that report. Electronically Signed: Braydon Bowers, at 12:09 EST Tel , Service support ,
--- NOTE | 2019-09-07 09:40 | US_ITS ---
STUDY: ULTRASOUND BREAST - LEFT REASON FOR EXAM: Male, 44 years old. TECHNIQUE: Axial and longitudinal images of the LEFT breast were performed with a high resolution ultrasound transducer. # OF IMAGES: 17 COMPARISON: None. FINDINGS: LEFT Breast: There is prominence of the fibroglandular tissue behind the nipple on the left side but no obvious masses suggest malignancy. US/Breast Limited Unilateral IMPRESSION: Prominence of the fibroglandular tissue behind the nipple on the left no obvious pathology. Electronically Signed: Braydon Bowers, at 12:01 EST Tel , Service support ,
== END ==
PROVIDERS: Family Provider Internal Medicine; PCP Internal Medicine; Visit Provider Internal Medicine
DX: N64.89 Other specified disorders of breast (principal)
CPT/HCPCS: 76642; 77062; 77066; G0279

== ENCOUNTER → 2019-10-07 17:51 | Outpatient (CLI) | payer OTHER, SELFPAY ==
[2019-10-07 18:16] LABS: Amphetamine Urine VISTA POSITIVE (<1000 ng/mL); Barbiturate Urine VISTA NEGATIVE (< 200 ng/mL); Benzodiazepine Urine VISTA NEGATIVE (< 200 ng/mL); Cocaine Urine VISTA NEGATIVE (< 300 ng/mL); Ecstacy Urine VISTA NEGATIVE (< 500 ng/mL); Methadone Urine VISTA NEGATIVE (< 300 ng/mL); PCP Urine VISTA NEGATIVE (< 25 ng/mL); THC Urine VISTA NEGATIVE (< 50 ng/mL); Vista UDS pH Range 5
== END ==
LOC: LAB 17:53
PROVIDERS: Family Provider Internal Medicine; PCP Internal Medicine; Referring Provider Anesthesiology; Visit Provider Anesthesiology
DX: F11.20 Opioid dependence, uncomplicated (principal)
CPT/HCPCS: 36415; 80307

== ENCOUNTER → 2019-11-29 10:17 | Outpatient (CLI) | payer OTHER, SELFPAY ==
--- NOTE | 2019-11-29 10:21 | RAD_ITS ---
HISTORY: MEDIAL KNEE PAIN S/P FEELING POP 2 WEEKS AGO EXAMINATION/TECHNIQUE: XR right 4 views COMPARISON: 06/30/2017 FINDINGS: No fracture or acute osseous abnormality. Joint spaces appear preserved. No bony erosions. Normal bony alignment. Small benign appearing bone island of the lateral femoral condyle. Suprapatellar effusion, new compared to previous. Otherwise negative exam. RAD/Knee 4 or More Views IMPRESSION: 1. Suprapatellar effusion, new compared to previous. Consider MRI to exclude internal derangement. 2. Otherwise stable exam. No fracture or bony abnormality. at 0538 Reported and signed by: Diego Cook MD Electronically Signed: Diego Cook, at 5:37 EST Tel , Service support ,
== END ==
LOC: HPRAD 10:18
PROVIDERS: PCP Internal Medicine; Referring Provider Nurse Practitioner; Visit Provider Nurse Practitioner
DX: M25.561 Pain in right knee (principal)
CPT/HCPCS: 73564

== ENCOUNTER 2020-02-19 21:19 | Emergency (ER) | payer OTHER, SELFPAY ==
[2020-02-19 21:20] VITALS: BP 157/76; PULSE 108; PULSE 111; RESP 18; TEMP 36.8; O2SAT 97; O2SAT 98; BMI 44.7
--- NOTE | 2020-02-19 21:31 | ED.VISSUMM ---
- ER Visit Summary Date of Service: 02/19/20 Chief Complaint: Hematuria History of Present Illness: The patient is a 44 M presenting with hematuria. Patient states this started a few hours ago. He noticed pink-tinged urine in the toilet. He states he also had difficulty urinating today and throughout the week. He denies fever. He denies concern for STD. He has chronic back pain that is no worse than usual. Denies other complaints. Physical Examination: Vitals are stable. Patient is afebrile. Alert no acute distress. HEENT exam is unremarkable. Neck is supple. Lungs are clear and equal bilaterally. Heart is regular rate and rhythm. Abdomen is soft nontender nondistended. No rebound or guarding : Normal. No rash or discharge. No testicular tenderness. Extremities are unremarkable. Skin is warm and dry. Remainder of exam is unremarkable. Emergency Department Course and Treatment: Bernabe catheter was placed and irrigated. His urine is clear. Urinalysis shows 10-25 white blood cells, over 100 red blood cells, positive glucose. Basic metabolic panel was obtained and shows glucose of 378. Patient states that he was told in the past that he no longer has diabetes and was taken off medications. He ate just before arrival to the ED. He states he is able to monitor his blood sugar at home and will check a fasting blood sugar in the morning. He will follow up with his PCP in the morning. Bernabe leg bag was placed. Urine culture was sent. He was started on Keflex. He was given insulin subcutaneously. Repeat blood sugar is 274. Patient feels improved. He is advised to follow-up with his primary care physician tomorrow. Advised return to ED for worsening complaints. Disposition: Discharge home Impression: UTI, urinary retention, hyperglycemia This note was generated with [employer] dictation software. It may contain incorrect words, spelling, and punctuation that were not noted in review of the chart prior to signing ED Disposition - Plan for ED Patient: Referrals: Joselyn Cummings DO [Primary Care Provider] -
[2020-02-19 21:49] LABS: Bacteria 0 SEEN /hpf (None Seen); Mucous, Urine 0 SEEN /hpf (<or=2+); Squamous Epithelial Cells - UA 0 SEEN /hpf (0-5)
[2020-02-19 21:52] LABS: Color, Urine Yellow (Yellow); Glucose, Dipstick 1000 mg/dl (Normal); Ketone-Dipstick 5 mg/dl (Negative); Leukocyte Esterase-Dipstick 100 /ul (Negative); Nitrite-Dipstick Negative (Negative); Occult Blood-Urine 250 /ul (Negative); Protein-Dipstick 100 mg/dl (Negative); Urine Bilirubin Dipstick Negative (Negative); Urine Clarity Sl. Cloudy (Clear); Urine Urobilinogen Normal (Normal)
[2020-02-19 22:13] LABS: Red Blood Cells-Urine > 100 SEEN /hpf (0-5); White Blood Cells 10-25 SEEN /hpf (0-5)
[2020-02-19 22:45] LABS: Anion Gap 7 (5-15); BUN 9 mg/dL (7-18); BUN/Creat Ratio 8.5 RATIO (10-20); Calcium,Total 8.4 mg/dL (8.5-10.1); Chloride 109 mmol/L (98-107); Creatinine, Serum 1.06 mg/dL (0.70-1.30); EST Glomerular Filtration Rate 80 mL/min (>60); Est Glom Filt Rate - Afr Amer 97 mL/min (>60); Estimated Creatinine Clearance 105.18 ml/min; Glucose 378 mg/dL (74-106); Potassium 4.6 mmol/L (3.5-5.1); Sodium Level 141 mmol/L (136-145)
[2020-02-19] MEDS: Cephalexin 250 MG Capsule 500 MG PO (23:23)
[2020-02-19] MEDS: Insulin Lispro 100 UNIT/ML INSULN.PEN 10 UNIT SC (23:23)
[2020-02-19 23:32] VITALS: BP 146/80; PULSE 102; RESP 16
--- NOTE | 2020-02-20 00:10 | ED.DEP ---
ED Disposition - Plan for ED Patient: Prescriptions: Cephalexin [Keflex] 500 mg PO Q12 #14 capsule Referrals: Joselyn Cummings DO [Primary Care Provider] - Travis Lee MD [STAFF PHYSICIAN] -
[2020-02-20 00:11] LABS: Bedside Glucose 274 mg/dL (70-110)
--- NOTE | 2020-02-20 00:15 | ED.DEP ---
ED Disposition - Plan for ED Patient: Instructions: ED Urinary Retention Male, ED Hematuria, ED Diabetic Hyperglycemia Prescriptions: Cephalexin [Keflex] 500 mg PO Q12 #14 cap Prescription Printed Referrals: Travis Lee MD [STAFF PHYSICIAN] - Joselyn Cummings DO [Primary Care Provider] -
== END 2020-02-20 00:25 | disposition home or self-care (01) ==
LOC: ED 22:00
PROVIDERS: Emergency Provider Emergency Medicine; PCP Internal Medicine
DX: N39.0 Urinary tract infection, site not specified (principal); R33.9 Retention of urine, unspecified; R73.9 Hyperglycemia, unspecified; G89.29 Other chronic pain; I10 Essential (primary) hypertension; K75.81 Nonalcoholic steatohepatitis (NASH); M54.9 Dorsalgia, unspecified
CPT/HCPCS: 36415; 51702; 80048; 81001; 82962; 87086; 99283

== ENCOUNTER → 2020-03-06 17:28 | Outpatient (CLI) | payer OTHER, SELFPAY ==
[2020-02-19 21:20] VITALS: BMI 44.7
--- NOTE | 2020-03-06 | CYSPIN_PTH ---
PATIENT: LIBRADO CARLSON LOC: [facility] U#:[id number] AGE/SX: 50/M ROOM: RE03/06/[address]: Dr. Travis Lee MD : 1975 BED: DIS: SPEC #: [id number] RECD: 03/07/20 11:58 STATUS: DOMINGA REKhloe #: [id number] POLLO: 03/06/20 00:[address]: Travis Lee DEPT: CYTOLOGY RECD BY: Javy Kang ENTERED: 03/07/20 11:58 SP TYPE: CYSPIN FL OTHR DR: Dr. Joselyn Cummings, DO Tissues: Urine Procedures: Pap Stain (control) Special Stain Group II Cytospin Fluid HEADER OPERATION: Not noted PRE-OP DIAGNOSIS: Microscopic hematuria TISSUE SUBMITTED: Urine for cytology DIAGNOSIS CYTOLOGY Urine for cytology (cytospin): Negative for malignant cells. AM:rich 03/08/20 CYTOLOGY STUDY Slides are reviewed. CYTOLOGY GROSS Received is 40 ml of orange cloudy fluid labeled with the patient's name and and designated per the requisition as urine. Submitted for cytology preparation. / rich 03/07/20 TC:5 [facility]: [id number]
[2020-03-06 17:30] LABS: Cytology, Body Fluid / CSF SEE PATHOLOGY REPORT
== END ==
PROVIDERS: PCP Internal Medicine; Referring Provider Urology; Visit Provider Urology
DX: R31.29 Other microscopic hematuria (principal)
CPT/HCPCS: 88108; 88313

== ENCOUNTER → 2020-03-08 07:46 | Outpatient (CLI) | payer OTHER, SELFPAY ==
[2020-02-19 21:20] VITALS: BMI 44.7
--- NOTE | 2020-03-08 07:53 | CT_ITS ---
STUDY: CT ABDOMEN AND PELVIS WITH AND WITHOUT CONTRAST REASON FOR EXAM: Male, 44 years old. GROSS HEMATURIA/BLADDER LESIONS -- SURG-GB,STOMACH FOR ACID REFLUX RADIATION DOSAGE (If Supplied By Facility): CTDIvol = ( 26.98 ) mGy, DLP = ( 4585.73 ) mGycm TECHNIQUE: Transaxial images were obtained from the dome of the diaphragm to the symphysis pubis without oral contrast. IV 100mL Isovue-300 was administered. Sagittal and coronal images were reconstructed. Individualized dose optimization techniques were used for this CT. COMPARISON: Comparison is made with prior examination dated January 18, 2019. FINDINGS: The visualized lung bases are unremarkable. The visualized portions of the heart are within normal limits. Normal liver. There are surgical clips in the gallbladder fossa consistent with a prior cholecystectomy. There is moderate splenomegaly. Varicosities are once again seen in the region of the splenic hilum. Normal pancreas. Normal bilateral adrenal glands. Normal right kidney. Normal left kidney. Normal visualized stomach. Normal small intestine. There are scattered colonic diverticula consistent with diverticulosis. The appendix is visualized and appears normal. There is scattered atherosclerotic calcification of the abdominal aorta, without a demonstrated aneurysm. Normal inferior vena cava. Stable appearance of the retroperitoneal varicosities extending inferior to the pelvis. The inferior vena cava is distended. This is unchanged. Normal urinary bladder. There are prostatic calcifications. Normal abdominal wall. Normal osseous structures. CT/CT Abd/Pelvis W/WO Contrast IMPRESSION: Moderate splenomegaly with the persistent enlarged varicosities in the retroperitoneum extending into the pelvis more prominent on the left side. Electronically Signed: Timothy Guo, at 8:45 EDT , Service support ,
== END ==
LOC: CT 07:47
PROVIDERS: PCP Internal Medicine; Referring Provider Nurse Practitioner Adult Health; Visit Provider Nurse Practitioner Adult Health
DX: R31.0 Gross hematuria (principal)
CPT/HCPCS: 74178; Q9967

== ENCOUNTER → 2020-03-09 18:04 | Outpatient (CLI) | payer OTHER, SELFPAY ==
[2020-02-19 21:20] VITALS: BMI 44.7
[2020-03-09 18:50] LABS: Amphetamine Urine VISTA POSITIVE (<1000 ng/mL); Barbiturate Urine VISTA NEGATIVE (< 200 ng/mL); Benzodiazepine Urine VISTA NEGATIVE (< 200 ng/mL); Cocaine Urine VISTA NEGATIVE (< 300 ng/mL); Ecstacy Urine VISTA NEGATIVE (< 500 ng/mL); Methadone Urine VISTA NEGATIVE (< 300 ng/mL); PCP Urine VISTA NEGATIVE (< 25 ng/mL); THC Urine VISTA NEGATIVE (< 50 ng/mL); Vista UDS pH Range 6
== END ==
PROVIDERS: Referring Provider Anesthesiology; Visit Provider Anesthesiology
DX: F11.20 Opioid dependence, uncomplicated (principal)
CPT/HCPCS: 36415; 80307

== ENCOUNTER 2020-04-16 11:51 | Day surgery (SDC) | payer OTHER, SELFPAY ==
--- NOTE | 2020-04-10 15:58 | EKG12_ITS ---
Test Reason : Blood Pressure : / mmHG Vent. Rate : 098 BPM Atrial Rate : 098 BPM P-R Int : 146 ms QRS Dur : 090 ms QT Int : 386 ms P-R-T Axes : 047 017 041 degrees QTc Int : 492 ms Normal sinus rhythm Prolonged QT Abnormal ECG Confirmed by CHARISSA CULLEN, KIAN ([id number]), supervising film or videotape editor SADIE CONTRERAS ([id number]) on 04/11/2020 12:43:55 PM Referred By: Stephani Mitchell Confirmed By:KIAN CARRINGTON MD
--- NOTE | 2020-04-10 16:12 | HP.PCM_ITS ---
History and Physical History and Physical Patient Name: Timothy Ceballos : 1975 From: KAREEM STEELE NP DATE OF SURGERY: 04/16/2020 SCHEDULED PROCEDURE: Right knee arthroscopy with medial meniscectomy and chondroplasty HISTORY OF PRESENT ILLNESS: Preoperative history and physical exam was performed on April 04, 2020. This is a 44-year-old male who injured his knee on November 12, 2019. The patient was walking in a store, heard a pop and experienced increased pain and swelling in the right knee. He describes the pain as constant, sharp, stabbing and sore. The pain is located over the medial aspect of the right knee. The pain is 3 on a scale of 10 at best, 5 on a scale of 10 on average and 8 on a scale of 10 at worst. He denies numbness and tingling. The patient does experience clicking, catching, locking and popping in the right knee. He does report instability in the right knee. Previous conservative measures attempted include aspiration with a cortisone injection, formal physical therapy and weight loss. He denies fevers, chills, chest pain, shortness of breath or difficulty breathing. The patient does have a history pertinent for asthma, ulcers, stomach varices, portal hypertension and non-alcoholics cirrhosis. He has a history of DVT in the right leg. Surgical clearance has been obtained from Dr. Corley. We did request clearance from Dr. Cummings with internal medicine. After failing conservative measures and discussing treatment options with Dr. Timothy Bunn the patient does wish to proceed with a right knee arthroscopy with medial meniscectomy and chondroplasty. The patient does see Dr. Beck for pain management. He is in a pain contract with Dr. Beck. The patient states Dr. Beck will manage his pain postoperatively. REVIEW OF SYSTEMS: ROS: Const: Denies anorexia, change in appetite, fever, hard of hearing, vision problems and weight change. CV: Denies chest pain, heart murmur, irregular heartbeat and peripheral vascular disease. Resp: Reports asthma and wheezing, but denies cough, pneumonia, sleep apnea, SOB and tuberculosis. GI: Denies constipation, diarrhea, difficulty swallowing, heartburn, nausea, bloody stools and vomiting. : Urinary: denies incontinence. Musculo: Reports trouble walking, but denies leg swelling, limp and weakness. Skin: Denies Raynaud's, history of shingles and tattoo. Neuro: Reports numbness/tingling but denies ambulatory dysfunction, dizziness and tremor. Psych: Denies anxiety, depression, insomnia, mental illness and stress. Isai/Lymph: Denies anemia, bleeding/bruising tendency and past transfusion. Reviewed, no changes. PAST MEDICAL HISTORY: Advance Care Plan: No Advance Directives Effective Date: 11/30/2019 PMH: Medical Problems: Asthma, Ulcers, High Blood Pressure, Non Alchoholic Cirrhosis Accidents: Fracture - RT ARM- A CHILD Surgical Hx: Gallbladder - (2000) AMEYA RT Hand Fifth Finger - FX Acid Relux SX RT Foot Plantar Facistis - (01/2012) STEFAN @ [facility] Anesthesia Complications: None Assistive Devices: None Reviewed and updated. 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 Personal Habits: Cigarette Use: Former.Alcohol: Denies use.Drug Use: Denies Use.Enjoy Exercising: Exercises 1-3 x/month. Reviewed and updated. VITALS: Ht: 75 Wt: 367lb 4oz Wt k.585 BMI: 45.9 BP: 106/57 Pulse: 107 Resp: 24 T: 98.3 T: 36.8C ALLERGIES: No Known Drug Allergy MEDICATIONS: Oxycodone HCL 5 mg 1 by mouth every 6 hours, Gabapentin 400 mg 3 po qd, Adderall 30 mg 2 po qd, Furosemide 20 mg 2 po qd, Spironolactone 50 mg 2 po qd, Milk Thistle 1 po qd, Vitamin E 1 po qd, Robaxin-750 750 mg 1po qhs, Lisinopril 20 mg take 1 tablet by mouth once daily, Tamsulosin HCL 0.4 mg 1 by mouth every day, Dupixent 200 mg/1.14ml Every 2 weeks PRE-OP EXAM: General appearance:NORMAL Other: Eyes: Conjunctivae and lids: NORMAL Pupils: ERR Ears, Nose, Mouth, and Throat: NORMAL Other: Inspection of lips, teeth and gums: NORMAL Other: Respiratory: Assessment of respiratory effort: NORMAL Other: Auscultation of lungs: clear to auscultation no wheezes, rhonchi or rales. Cardiovascular: Auscultation of heart: regular rate and rhythm, no murmurs, gallops or rubs. Gastrointestinal: Exam of abdomen: soft, nontender, nondistended bowel sounds present. Neurological: see below Psychiatric: Orientation to time, place and person: NORMAL Other: Mood and affect: NORMAL Other: PHYSICAL EXAMINATION: The patient ambulates with an antalgic gait. Right knee with moderate effusion. No erythema, warmth or signs of infection. Pain with palpation along the medial lateral joint lines. Range of motion: 0 extension to 95 flexion. Negative anterior drawer testing. Negative posterior drawer testing. Pain medially with Kika testing. Stable to varus and valgus stress testing. Negative Homans sign. Patient does have pitting edema on the right lower extremity. Sensation intact to light touch. IMAGING STUDIES: X-rays of the right knee obtained at [facility] on November 29, 2019 reveal degenerative changes over the medial compartment. No acute fractures or dislocations. No lytic or blastic lesions. MRI obtained on December 03, 2019 reveals degenerative changes in the medial compartment with chronic undersurface tearing of the medial meniscus, bone bruising of the medial femoral condyle, MCL sprain and a large knee effusion with lateral subluxation of the patella. IMPRESSION: 1. Right knee, osteoarthritis 2. Medial meniscus tear, right knee 3. Knee effusion, right 4. Hypertension 5. Asthma 6. Obesity 7. Nonalcoholic fatty liver disease PLAN: Dr. Timothy Bunn did discuss and review with the patient all treatment options including surgical versus nonsurgical. The patient does wish to proceed with the above-stated procedure. Potential risk, benefits and complications of the procedure were discussed in detail including but not limited to , infection, nerve and blood vessel damage, persistent pain, numbness, tingling, paresthesia, blood clot, pulmonary embolism and requirement for possible further surgery. The patient expressed full understanding and has no further questions for the doctor. The patient does agree to proceed with the above-stated procedure and has signed the surgery consent form. The patient will bring a walker or crutches to the hospital the day of the surgery. The patient does have a history of deep vein thrombosis in the right lower extremity. We are in the process of discussing DVT prophylaxis with his his dairy chemist. The patient stated he is only able to take Coumadin. At the time of the history and physical we had not heard back from his dairy chemist. Discussed with the patient the risks associated with the COVID-19 virus including the risk of exposure while at the hospital. The patient was reassured local hospitals have low infection rates and taken all necessary precautions to limit patient exposure to COVID-19. Limiting the patient's time in the hospital may decrease their exposure to COVID-19. The patient was notified that we will need to comply with any screening or testing the hospital wishes to perform and that surgery may be delayed for any positive test results. This dictation was created using voice recognition software. Phonetic and/or grammatical errors may exist. ___ I have re-examined the patient. There are no clinical changes since date of exam. ___ See progress notes for changes. ___ Dictated on admission Date: Time: Signature:
[2020-04-16] VITALS (8 sets, daily range): BP systolic 123–146; BP diastolic 51–66; PULSE 73–88; RESP 14–16; TEMP 36.4–37.2; O2SAT 95–100; BMI 46.0
[2020-04-16] MEDS: Lactated Ringers 1,000 ML 100 ML IV (12:43)
[2020-04-16] MEDS: Epinephrine (1 mg/ml) 1 MG/ML VIAL (14:03)
[2020-04-16] MEDS: Bupiv/Epi 0.5% Mpf 30 ML Vial (14:04)
--- NOTE | 2020-04-16 15:05 | PCM.OPRPT ---
Report of Operation Date of Procedure: 04/16/20 Pre-Operative Diagnosis: Internal derangement right knee Post-Operative Diagnosis: MMT, grade II chondromalacia MFC and patella, 7 mm x 7mm cartilagenous loose body Surgery/Procedure Performed:: Diagnostic and Operative arthroscopy right knee Type of Anesthesia:: General Anesthesiologist: Liam Jj - Admit VTE Documentation VTE Present on Admission: No VTE Mechan Device Prophylaxis: SCD's, Thigh High JORJE Hose VTE Pharm Prophylaxis ordered?: Yes
[2020-04-16] MEDS: HYDROcodone Bitartrate/Apap 5/325 Tablet PO (15:42)
== END 2020-04-16 16:27 | disposition home or self-care (01) ==
LOC: SDC 11:53 → AC 11:53
PROVIDERS: Orthopaedic Surgery; PCP Internal Medicine; Referring Provider Registered Nurse; Visit Provider Registered Nurse
PROC: (CPT 29870; principal; 2020-04-16 13:10)
DX: M17.11 Unilateral primary osteoarthritis, right knee (principal); E66.9 Obesity, unspecified; S83.241A Other tear of medial meniscus, current injury, right knee, initial encounter; M25.461 Effusion, right knee; M94.261 Chondromalacia, right knee; Z86.718 Personal history of other venous thrombosis and embolism; Z79.899 Other long term (current) drug therapy; K76.6 Portal hypertension; K74.60 Unspecified cirrhosis of liver; K76.0 Fatty (change of) liver, not elsewhere classified; I10 Essential (primary) hypertension; J45.909 Unspecified asthma, uncomplicated; Z20.828 Contact with and (suspected) exposure to other viral communicable diseases
CPT/HCPCS: 01400; 29880; 87635; 93005; G2023; J7120; J2405; U0003

== ENCOUNTER → 2020-06-15 10:58 | Outpatient (CLI) | payer OTHER, SELFPAY ==
[2020-04-16 12:25] VITALS: BMI 46.0
[2020-06-15 12:17] LABS: Amphetamine Urine VISTA NEGATIVE (<1000 ng/mL); Barbiturate Urine VISTA NEGATIVE (< 200 ng/mL); Benzodiazepine Urine VISTA NEGATIVE (< 200 ng/mL); Cocaine Urine VISTA NEGATIVE (< 300 ng/mL); Ecstacy Urine VISTA NEGATIVE (< 500 ng/mL); Methadone Urine VISTA NEGATIVE (< 300 ng/mL); PCP Urine VISTA NEGATIVE (< 25 ng/mL); THC Urine VISTA NEGATIVE (< 50 ng/mL); Vista UDS pH Range 6
== END ==
PROVIDERS: PCP Internal Medicine; Visit Provider Anesthesiology
DX: F11.20 Opioid dependence, uncomplicated (principal)
CPT/HCPCS: 80307

== ENCOUNTER 2020-07-05 | Inpatient (IN) | payer OTHER, SELFPAY ==
[2020-04-16 12:25] VITALS: BMI 46.0
[2020-07-05] VITALS (13 sets, daily range): BP systolic 135–171; BP diastolic 55–100; PULSE 85–104; RESP 18–22; TEMP 36.6–37.1; O2SAT 95–97; BMI 47.5; BMI 47.2; BMI 47.3
--- NOTE | 2020-07-05 00:16 | ED.DCSUM_ITS ---
History of Present Illness Chief Complaint: Cellulitis Informant: Patient Narrative: 45-year-old male presenting for chief complaint of cellulitis which developed on his left leg. He states he usually gets this in his right leg and takes antibiotics and gets better. Patient then stated that he was having some chest pain when he takes a deep breath. He states he has a history of a provoked DVT from surgery for plantar fasciitis and also has a history of unprovoked DVT. He was previously on Coumadin but states they took him off of it because he has Dean and he has liver cirrhosis and they did not want him to have any GI bleeding. 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 EGD/Lazaro. Lives: Spouse/ Significant Other Smoking Status: Former smoker Alcohol: None Drugs: None - Family History Maternal Family History: Reports: COPD, Hypertension Paternal Family History: Reports: Cancer Review of Systems General: Reports: Sweats. Denies: Fever Eyes: Denies: Visual changes - bilaterally, Diplopia ENT: Denies: Rhinorrhea, Sore throat Cardiovascular: Reports: Chest pain Respiratory: Denies: Dyspnea, Cough, Dyspnea on exertion Gastrointestinal: Denies: Abdominal pain, Nausea, Vomiting, Diarrhea, Melena, Hematochezia Musculoskeletal: Reports: Extremity Pain - Left leg pain Skin: Reports: - - Left leg rash. Denies: Abscess Neurological: Denies: Headache, Weakness Psych: Reports: Depression Physical Exam Vital Signs/Narrative: Vital Signs Temp Pulse Resp BP Pulse Ox 07/05/20 00:11 104 H 22 H 97 07/05/20 00:00 98.4 F 102 H 20 H 149/83 H 97 Inital Vital Signs reviewed: Yes General: Obese, No Acute Distress Head: Normocephalic, Atraumatic ENT: Moist mucous membranes, No rhinorrhea Cardiovascular: Regular rhythm, Tachycardia Respiratory: No distress, CTA bilaterally Abdomen: Soft, Nontender Extremities: - - Noticed to palpation left leg over rash Skin: Rash - Edema and warmth extending over the left knee extending up into the thigh and is nearly circumferential around the thigh. Neurological: Alert, Oriented x3 Psychological: Normal affect, Normal Mood Diagnostic/Tx/Re-eval Clinical Impression(s) from Imaging Studies Chest X-Ray 07/05/20 00:20 IMPRESSION: Normal x-ray examination of the chest. Electronically Signed: Milton Snider MD at 1:00 EDT , Service support , Chest CTA 07/05/20 00:55 IMPRESSION: There is inadequate IV contrast to detect pulmonary embolism. There is inadequate IV contrast detect dissection of the aorta. Repeat examination or VQ scan may be helpful. Normal heart and pericardium. The lungs are well expanded. Normal pulmonary parenchyma. Normal pleura. Liver and spleen are enlarged. There has been a cholecystectomy. Electronically Signed: Milton Snider MD at 2:06 EDT , Service support , Laboratory Data 07/05/20 07/05/20 07/05/20 00:20 00:20 00:20 WBC 4.3 L RBC 3.89 L Hgb 12.2 L Hct 35.2 L MCV 90.5 MCH 31.4 MCHC 34.7 RDW Std Deviation 47.0 H RDW Coeff of Ramya 14.3 Plt Count 50 L* MPV 12.0 Immature Gran % (Auto) 0.200 Neut % (Auto) 68.1 Lymph % (Auto) 17.6 L [place] % (Auto) 11.5 H Eos % (Auto) 2.1 Baso % (Auto) 0.5 Absolute Neuts (auto) 3.0 Absolute Lymphs (auto) 0.76 L Nucleated RBC % 0 Differential Comment SCANNED Platelet Estimate MOD DEC PT 15.8 H INR 1.3 APTT 38.9 H D-Dimer Quant (PE/DVT) 0.52 H* Sodium 138 Potassium 3.8 Chloride 109 H Carbon Dioxide 26.0 Anion Gap 3 L BUN 7 Creatinine 0.82 Estim Creat Clear Calc 134.54 Est GFR (MDRD) Af Amer 129 Est GFR (MDRD) Non-Af 107 BUN/Creatinine Ratio 8.5 L Glucose 312 H Lactic Acid Calcium 7.9 L Troponin I 0.027 07/05/20 00:28 WBC RBC Hgb Hct MCV MCH MCHC RDW Std Deviation RDW Coeff of Ramya Plt Count MPV Immature Gran % (Auto) Neut % (Auto) Lymph % (Auto) [place] % (Auto) Eos % (Auto) Baso % (Auto) Absolute Neuts (auto) Absolute Lymphs (auto) Nucleated RBC % Differential Comment Platelet Estimate PT INR APTT D-Dimer Quant (PE/DVT) Sodium Potassium Chloride Carbon Dioxide Anion Gap BUN Creatinine Estim Creat Clear Calc Est GFR (MDRD) Af Amer Est GFR (MDRD) Non-Af BUN/Creatinine Ratio Glucose Lactic Acid 1.3 Calcium Troponin I - EKG Initial EKG Interpretation: No Acute Injury Pattern, Sinus Tachycardia - Medical Decision Making Patient presents with concern for cellulitis on his leg which is fairly well circumferential on the left thigh extending into the posterior knee. It is c onsistent with cellulitis. Patient also has complaint of chest pain and he has a history of DVT and is not anticoagulated due to his DEAN thrombocytopenia. His troponin was negative. His EKG is sinus rhythm without signs of ischemia. D-dimer is elevated so he did have CTA of the chest however the CTA was nondiagnostic. Although his d-dimer could be elevated from his cellulitis I believe he needs to be admitted for a VQ scan. Believe the patient could also benefit from antibiotics for his cellulitis. I initially gave him clindamycin however the hospitalist requested Ancef as well. Patient will be admitted to the medical floor in stable condition. Impression: 1. Chest pain 2. Cellulitis left leg 3. Thrombocytopenia 4. Leukopenia ED Disposition - Plan for ED Patient: Disposition: Acute Care Hospital [facility]
--- NOTE | 2020-07-05 00:20 | RAD_ITS ---
STUDY: X-RAY CHEST REASON FOR EXAM: Male, 45 years old. CP WITH INSPIRATIONS TECHNIQUE: Frontal view COMPARISON: 01/06/2016 FINDINGS: The lungs are clear and expanded. There is no demonstrated pleural abnormality. Normal size heart. Normal mediastinum and akil. Normal visualized pulmonary arteries. Normal visualized aortic arch and descending thoracic aorta. Normal visualized thoracic spine. Normal visualized ribs, clavicles, and shoulders. There is no demonstrated abnormality of the visualized soft tissue structures of the upper abdomen. RAD/Chest 1 View (Portable) IMPRESSION: Normal x-ray examination of the chest. Electronically Signed: Milton Snider MD at 1:00 EDT , Service support ,
--- NOTE | 2020-07-05 00:20 | EKG12_ITS ---
Test Reason : CP Blood Pressure : / mmHG Vent. Rate : 088 BPM Atrial Rate : 088 BPM P-R Int : 158 ms QRS Dur : 100 ms QT Int : 386 ms P-R-T Axes : 037 031 058 degrees QTc Int : 467 ms Normal sinus rhythm Normal ECG When compared with ECG of 05-JUL-2020 15:01, MANUAL COMPARISON REQUIRED, DATA IS UNCONFIRMED Confirmed by JILLIAN CULLEN, HERMILA ([id number]), legal editor ELICIA BARBA ([id number]) on 07/10/2020 12:42:52 PM Referred By: ISAIAS Confirmed By:HERMILA WALSH MD
[2020-07-05 00:30] LABS: Absolute Lymphocyte Count 0.76 X10^3/uL (0.83-4.51); Basophil# 0.02 X10^3/uL; Basophil% 0.5 % (0-1); Eosinophil# 0.09 X10^3/uL; Eosinophils% 2.1 % (0-5); Hematocrit 35.2 % (40-54); Hemoglobin 12.2 g/dL (13.0-16.5); Lymphocyte # 0.76 X10^3/ul (4.0); Lymphocyte % 17.6 % (19-41); Mean Corp Hgb Conc 34.7 g/dL (32-36); Mean Corpuscular Hgb 31.4 pg (27.0-32.0); Mean Corpuscular Volume 90.5 fL (80-94); Monocyte% 11.5 % (0-10); NRBC Flagged by Analyzer 0 % (0-5); Neutrophil # 2.95 X10^3/uL (2.7-7.7); Neutrophil % 68.1 % (47-70); POSITIVE COUNT YES; Platelet Count 50 K/mm3 (150-450); RBC Distribution Width CV 14.3 % (11.6-14.6); Red Blood Count 3.89 M/mm3 (4.6-6.2); White Blood Count 4.3 K/mm3 (4.4-11.0)
[2020-07-05 00:36] LABS: Differential Indicated SCAN CRITERIA MET
[2020-07-05] MEDS: Aspirin 81 MG TAB.CHEW 324 MG PO (00:40)
[2020-07-05 00:48] LABS: Anion Gap 3 (5-15); BUN 7 mg/dL (7-18); BUN/Creat Ratio 8.5 RATIO (10-20); Calcium,Total 7.9 mg/dL (8.5-10.1); Chloride 109 mmol/L (98-107); Creatinine, Serum 0.82 mg/dL (0.70-1.30); EST Glomerular Filtration Rate 107 mL/min (>60); Est Glom Filt Rate - Afr Amer 129 mL/min (>60); Estimated Creatinine Clearance 134.54 ml/min; Glucose 312 mg/dL (74-106); Potassium 3.8 mmol/L (3.5-5.1); Sodium Level 138 mmol/L (136-145)
[2020-07-05 00:51] LABS: Differential Comment SCANNED; Platelet Estimate MOD DEC (ADEQ)
[2020-07-05 00:54] LABS: D-Dimer Quantitative (DVT/PE) 0.52 FEU/ug/m (0.27-0.49)
--- NOTE | 2020-07-05 00:55 | CT_ITS ---
STUDY: CTA CHEST REASON FOR EXAM: Male, 45 years old. SOB, CELLULITIS LEFT INNER THIGH WITH REDNESS, HX ASTHMA RADIATION DOSAGE (If Supplied By Facility): CTDIvol = ( 70.49 ) mGy, DLP = ( 1728.17 ) mGycm TECHNIQUE: The examination was performed with the intravenous administration of IV 100mL Isovue-370. Post-processing of the angiographic images was performed, with multiplanar reformation and 3D reconstruction. Individualized dose optimization techniques were used for this CT. COMPARISON: None. FINDINGS: There is inadequate IV contrast to detect pulmonary embolism. Normal thoracic aorta and visualized great vessels. There is inadequate IV contrast detect dissection of the aorta. Normal heart and pericardium. Normal mediastinum. Normal hilar regions. Normal visualized trachea and bronchi. The lungs are well expanded. Normal pulmonary parenchyma. Normal pleura. Normal chest wall structures. Normal osseous structures. Liver and spleen are enlarged. There has been a cholecystectomy. CT/CTA Chest W/WO Contrast IMPRESSION: There is inadequate IV contrast to detect pulmonary embolism. There is inadequate IV contrast detect dissection of the aorta. Repeat examination or VQ scan may be helpful. Normal heart and pericardium. The lungs are well expanded. Normal pulmonary parenchyma. Normal pleura. Liver and spleen are enlarged. There has been a cholecystectomy. Electronically Signed: Milton Snider MD at 2:06 EDT , Service support ,
[2020-07-05] MEDS: Ondansetron 4 MG/2 ML Vial IM (01:22)
[2020-07-05] MEDS: 0.9% Normal Saline 1,000 ML 999 ML IV ×2 (01:22→04:14)
[2020-07-05] MEDS: Morphine 4 MG/ML Syringe IV ×2 (01:24→02:52)
[2020-07-05 04:06] LABS: International Normalized Ratio 1.3; Prothrombin Time (Protime)PT. 15.8 SECONDS (11.7-14.9)
[2020-07-05 04:07] LABS: Partial Thromboplast Time 38.9 Seconds (24.1-36.2)
[2020-07-05] MEDS: Cefazolin 2 GM in 0.9% Normal Saline 100 ML IV ×3 (04:14→21:30)
[2020-07-05 04:15] LABS: Lactic Acid 1.3 mmol/L (0.4-1.9)
--- NOTE | 2020-07-05 04:26 | PCM.HP.STD ---
History of Present Illness Date of Admission: 07/05/20 Chief Complaint: Cellulitis The patient is a 45 year old M with a PMH as below who presents to the hospital with cellulitis. It started on his left leg and appears to be somewhat circumferential. He denies any fevers or chills here, but states that he usually gets infection on his right leg and it resolves with antibiotics. He also expressed to the ED physician that he was having chest pain when he takes a deep breath he has a history of a provoked DVT from surgery as well as a history of unprovoked DVT. 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 He had a d-dimer was obtained which was slightly elevated to 0.52 which is likely secondary to a cellulitis however a CTA was performed unfortunately the contrast bolus was not adequate and therefore a PE cannot be definitively ruled out. However from a vital sign standpoint, he is not hypoxic and he is not tachycardic. His troponin is normal and his lactic acid is unremarkable. 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) Morbid obesity due to excess calories (Chronic) Diabetes mellitus with complication (Chronic) Edema (Chronic) Venous insufficiency (Chronic) Other intervertebral disc degeneration, lumbar region (Chronic) Other intervertebral disc degeneration, lumbar region (Chronic) Spinal stenosis of lumbar region with neurogenic claudication (Chronic) Spinal stenosis of lumbar region with neurogenic claudication (Chronic) 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 EGD/Lazaro. Psychiatric History: Attn. deficit disorder Lives: Spouse/ Significant Other Smoking Status: Former smoker Tobacco Use: Non-smoker Alcohol: None Drugs: None - *Family History Maternal History Items: COPD, Hypertension Paternal History Items: Cancer Review of Systems Constitutional: Denies: Chills, Fever, Weight Change HEENT: Denies: Head Aches, Sinus Congestion, Sinus Drainage Cardiovascular: Reports: Chest Pain. Denies: Palpitations Respiratory: Denies: Cough, Shortness of breath at rest, Sputum production Gastrointestinal: Denies: Abdominal Pain, Nausea, Vomiting Genitourinary: Denies: Dysuria Musculoskeletal: Denies: Joint Pain, Joint Tenderness Skin: Reports: Rash - Left leg. Denies: Wounds Neurological: Denies: Numbness, Tingling, Focal weakness Psychiatric: Denies: Anxiety, Depression, Homicidal Ideations, Suicidal Ideations Hematologic/ Lymphatic: Denies: Easy Bruising, Easy Bleeding VTE Information - Inpt Only VTE Present on Admission: No - Physical Exam Vitals/I&O's: Vital Signs Temp Pulse Resp BP Pulse Ox 98.4 F 85 18 139/66 H 96 07/05/20 04:16 07/05/20 04:16 07/05/20 04:16 07/05/20 04:16 07/05/20 04:16 Oxygen Delivery Method Room Air Weight: 379 lb 13.703 oz Body Mass Index (BMI) 47.5 Finger Stick Blood Glucose 274 Intake and Output for Last 24 Hours 07/03/20 07/04/20 07/05/20 23:59 23:59 23:59 Intake Total 1054 / 1054 Balance 1054 / 1054 General: Alert, Oriented x3, Cooperative, No apparent distress HEENT: Atraumatic, PERRLA, EOMI, Normocephalic Oral: Moist Mucosa Neck: Supple, No JVD Lungs: Clear to auscultation, Normal air movement, No rhonchi, No wheeze, No rales Cardiovascular: Regular rate, Regular Rhythm, Normal S1, Normal S2, No murmurs Abdomen: Soft, Non Tender, Non-Distended, No Hepato-splenomegaly Extremities: No edema, Capillary Refill Less than 3 Seconds Skin: Rash Present - Edema and erythema over his left knee to his left thigh Neurological: Neuro grossly intact, Sensory exam intact to light touch and pain Psych/Mental Status: Normal Affect, Appropriate Laboratory Results 07/05/20 00:20: WBC 4.3 L, RBC 3.89 L, Hgb 12.2 L, Hct 35.2 L, MCV 90.5, MCH 31.4, MCHC 34.7, RDW Std Deviation 47.0 H, RDW Coeff of Ramya 14.3, Plt Count 50 L*, MPV 12.0, Immature Gran % (Auto) 0.200, Neut % (Auto) 68.1, Lymph % (Auto) 17.6 L, [place] % (Auto) 11.5 H, Eos % (Auto) 2.1, Baso % (Auto) 0.5, Absolute Neuts (auto) 3.0, Absolute Lymphs (auto) 0.76 L, Nucleated RBC % 0, Differential Comment SCANNED, Platelet Estimate MOD 07/05/20 00:20: PT 15.8 H, INR 1.3, APTT 38.9 H, D-Dimer Quant (PE/DVT) 0.52 H* 07/05/20 00:20: Sodium 138, Potassium 3.8, Chloride 109 H, Carbon Dioxide 26.0, Anion Gap 3 L, BUN 7, Creatinine 0.82, Estim Creat Clear Calc 134.54, Est GFR (MDRD) Af Amer 129, Est GFR (MDRD) Non-Af 107, BUN/Creatinine Ratio 8.5 L, Glucose 312 H, Calcium 7.9 L, Troponin I 0.027 07/05/20 00:28: Lactic Acid 1.3 Current Medications Cefazolin Sodium 2 gm/ Sodium (Chloride) 110 mls @ 150 mls/hr IV X1 ONE Stop: 07/05/20 04:33 Last Admin: 07/05/20 04:14 Dose: 150 mls/hr Documented by: Sodium Chloride () 1,000 mls @ 999 mls/hr IV .[id number] ONE Stop: 07/05/20 04:56 Last Admin: 07/05/20 04:14 Dose: 999 mls/hr Documented by: Assessment/Plan All Active Problems Ulcer of right lower extremity with fat layer exposed (Acute) Cellulitis (Ruled-out) 1. Sepsis secondary to left lower extremity cellulitis/questionable PE -He was slightly septic in the ER on presentation, this has resolved with fluids and antibiotics -We will continue with Ancef -Given where his erythema and cellulitis is in the lack of significant lower extremity swelling on the left leg I do not think that a Doppler will be necessary -Currently with a platelet count of 50 he is not a candidate for full anticoagulation therefore place him on SCDs -May need a VQ scan during this admission to completely rule out a PE though based on his vital signs I do not feel like this is very high on the differential, chest x-ray was normal -Urine blood cultures are pending 2. Cirrhosis secondary to Dean/chronic thrombocytopenia -Platelet count generally is around 60,000, currently 50,000 making him not a great candidate for systemic anticoagulation -Continue to monitor, will obtain a CMP in the morning 3. Chronic pain secondary to bulging disks in his lower back -Stable -Continue with his home pain regimen 4. HTN -Blood pressure is stable, he states that he supposed be on lisinopril -Can reorder this medication once verified by pharmacy 5. BPH -States that he is on Flomax at home -Can order this medication once verified by pharmacy DVT: SCDs Inpatient E&M: [id number] Init Hosp L2
[2020-07-05 04:28] LABS: Bacteria 0 SEEN /hpf (None Seen); Mucous, Urine 0 SEEN /hpf (<or=2+); Squamous Epithelial Cells - UA 0 SEEN /hpf (0-5); White Blood Cells 0 SEEN /hpf (0-5)
[2020-07-05 04:31] LABS: Color, Urine Yellow (Yellow); Glucose, Dipstick 1000 mg/dl (Normal); Ketone-Dipstick Negative (Negative); Leukocyte Esterase-Dipstick Negative /ul (Negative); Nitrite-Dipstick Negative (Negative); Occult Blood-Urine 50 /ul (Negative); Protein-Dipstick Negative (Negative); Urine Bilirubin Dipstick Negative (Negative); Urine Clarity Clear (Clear); Urine Urobilinogen 1 mg/dl (Normal)
[2020-07-05 04:41] LABS: Red Blood Cells-Urine 0-5 SEEN /hpf (0-5)
[2020-07-05] MEDS: 0.9% Normal Saline 1,000 ML 100 ML IV ×2 (05:20→14:37)
[2020-07-05 05:57] LABS: Absolute Lymphocyte Count 1.08 X10^3/uL (0.83-4.51); Absolute Neutrophil Count 3.2 X10^3/uL (2.0-7.7); Basophil# 0.03 X10^3/uL; Basophil% 0.6 % (0-1); Eosinophil# 0.14 X10^3/uL; Eosinophils% 2.7 % (0-5); Hemoglobin 12.2 g/dL (13.0-16.5); Lymphocyte # 1.08 X10^3/ul (4.0); Lymphocyte % 20.9 % (19-41); Mean Corp Hgb Conc 34.9 g/dL (32-36); Mean Corpuscular Hgb 31.4 pg (27.0-32.0); Mean Corpuscular Volume 90.2 fL (80-94); Mean Platelet Vol. 11.9 fl (6.2-12.0); Monocyte# 0.69 X10^3/uL; Monocyte% 13.3 % (0-10); NRBC Flagged by Analyzer 0 % (0-5); Neutrophil # 3.22 X10^3/uL (2.7-7.7); Neutrophil % 62.3 % (47-70); POSITIVE COUNT YES; Platelet Count 52 K/mm3 (150-450); RBC Distribution Width CV 14.3 % (11.6-14.6); RBC Distribution Width SD 46.5 fl (35.1-43.9); Red Blood Count 3.88 M/mm3 (4.6-6.2); White Blood Count 5.2 K/mm3 (4.4-11.0)
[2020-07-05] MEDS: oxyCODONE 5 MG Tablet PO ×2 (06:03→21:30)
[2020-07-05 06:39] LABS: ALB/GLOB Ratio 0.8 RATIO (0.9-2.4); AST(SGOT) 40 U/L (15-37); Alanine Aminotransfer ALT/SGPT 28 U/L (16-61); Albumin, Serum 2.9 g/dL (3.2-5.0); Alkaline Phosphatase 108 U/L (45-117); Anion Gap 3 (5-15); BUN 5 mg/dL (7-18); BUN/Creat Ratio 6.7 RATIO (10-20); Calcium,Total 7.6 mg/dL (8.5-10.1); Chloride 107 mmol/L (98-107); Creatinine, Serum 0.74 mg/dL (0.70-1.30); EST Glomerular Filtration Rate 121 mL/min (>60); Est Glom Filt Rate - Afr Amer 146 mL/min (>60); Estimated Creatinine Clearance 149.08 ml/min; Globulin 3.6 g/dL (2.2-4.2); Glucose 165 mg/dL (74-106); Potassium 3.8 mmol/L (3.5-5.1); Protein, Total 6.5 g/dL (6.4-8.2); Sodium Level 137 mmol/L (136-145)
--- NOTE | 2020-07-05 07:23 | VDLE_ITS ---
Reason For Study: Swelling RIGHT LEFT GSV is normal. GSV is normal. CFV is compressible, spontaneous, competent CFV is compressible, spontaneous, competent, and demonstrates pulsatile venous flow. and demonstrates pulsatile venous flow. FV is compressible, spontaneous, competent FV is compressible, spontaneous, competent and demonstrates pulsatile venous flow. and demonstrates pulsatile venous flow. POP V is compressible, spontaneous, competent POP V is compressible, spontaneous, competent and demonstrates pulsatile venous flow. and demonstrates pulsatile venous flow. T/P Trunk is compressible. T/P Trunk is compressible. PTV is compressible. PTV is compressible. RT PerV is compressible. LT PerV is compressible. Procedure Exam performed in department. A preliminary report was called and/or faxed to RN. Interpretation Summary No evidence for acute deep venous thrombosis bilateral lower extremities with patent and compressible bilateral great saphenous veins. Pulsitile venous flow noted bilaterally consistent with proximal venous hypertension or obstruction; clinical correlation would be appropriate Ordering Physician: Dariel Goel Referring Physician: Joselyn Cummings M.D. Performed By: Mitzi Nash RVT and Student
[2020-07-05] MEDS: Acetaminophen 325 MG Tablet 650 MG PO ×2 (08:35→14:57)
[2020-07-05] MEDS: Ondansetron 4 MG/2 ML Vial IV (08:35)
--- NOTE | 2020-07-05 11:15 | CASEMGMT ---
RN CM Face to Face with patient for initial transition planning/care coordination assessment. RN CM introduced self and role at [facility]. Patient lying in bed, alert and oriented. Patient willing to participate in assessment and is able to answer all questions appropriately. Care providers, pharmacy, and demographics verified. Patient wishes to discharge home, denies need for home health at this time. Patient states he has no further needs or concerns at this time. CM to follow for discharge planning needs that may arise. PCP: Zoila Specialists: Ebony, pain; Jory, [employer] and gastro Preferred Pharmacy: [facility] Insurance: U[employer] Prescription Benefit: yes Living Will/HPOA: none LNOK: Living Arrangements: Patient lives with and 5 kids in a 2 story home with bed and bath on the main level. Patient states he is independent at home. Transportation: self/ DME/HHC: Patient states he has a cpap machine at home. Patient denies previous HHC. Disposition Plan: Patient to discharge home with family support and follow-up plans in place. Mitzi FERRELL, RN, CM
--- NOTE | 2020-07-05 14:40 | PCM.PN.HOSP ---
Reason for Visit: Seen and examined. Follow-up for right thigh cellulitis. Multiple comorbidities including Soriano related cirrhosis Objective: No fever or chills. No tachycardia or hypotension. Lactic acid normal Patient also complained of chest pain in the afternoon. EKG is being done. Physical exam General: Alert, Oriented x3, Cooperative, morbid obesity, BMI 47.3 HEENT: Atraumatic, PERRLA, EOMI, Normocephalic Oral: No Gingival or Mucosal Lesions/ Ulcerations Neck: Supple, No JVD, Negative Carotid Bruits Lungs: Air entry diminished in bilateral lung bases. No crepitation/rhonchi Cardiovascular: Regular rate, Regular Rhythm, Normal S1, Normal S2, No murmurs Abdomen: Mild abdominal distention. Fat abdomen. No significant shifting dullness palpable. Bowel Sounds Present, Soft, Non Tender : No renal angle tenderness. No suprapubic tenderness. Extremities: Bilateral lower extremity edema. Capillary Refill Less than 3 Seconds Skin: Macular rash present over left thigh. Musculoskeletal: No Tenderness to Palpation of Joints or Extremities Neurological: Cranial nerves II-XII grossly intact, Deep Tendon Reflexes 2+/4 and Symmetrical, Neuro grossly intact Psych/Mental Status: Normal Affect, Appropriate. Vitals/I&O's: Vital Signs Temp Pulse Resp BP Pulse Ox 98.1 F 86 18 135/55 H 96 07/05/20 08:37 07/05/20 08:37 07/05/20 08:37 07/05/20 08:37 07/05/20 08:37 Oxygen Delivery Method Room Air Weight: 378 lb 1.484 oz Body Mass Index (BMI) 47.2 Finger Stick Blood Glucose 274 Intake and Output for Last 24 Hours 07/03/20 07/04/20 07/05/20 23:59 23:59 23:59 Intake Total 3092.33 / 3092.33 Balance 3092.33 / 3092.33 Laboratory Results 07/05/20 00:20: WBC 4.3 L, RBC 3.89 L, Hgb 12.2 L, Hct 35.2 L, MCV 90.5, MCH 31.4, MCHC 34.7, RDW Std Deviation 47.0 H, RDW Coeff of Ramya 14.3, Plt Count 50 L*, MPV 12.0, Immature Gran % (Auto) 0.200, Neut % (Auto) 68.1, Lymph % (Auto) 17.6 L, Noble % (Auto) 11.5 H, Eos % (Auto) 2.1, Baso % (Auto) 0.5, Absolute Neuts (auto) 3.0, Absolute Lymphs (auto) 0.76 L, Nucleated RBC % 0, Differential Comment SCANNED, Platelet Estimate MOD 07/05/20 00:20: PT 15.8 H, INR 1.3, APTT 38.9 H, D-Dimer Quant (PE/DVT) 0.52 H* 07/05/20 00:20: Sodium 138, Potassium 3.8, Chloride 109 H, Carbon Dioxide 26.0, Anion Gap 3 L, BUN 7, Creatinine 0.82, Estim Creat Clear Calc 134.54, Est GFR (MDRD) Af Amer 129, Est GFR (MDRD) Non-Af 107, BUN/Creatinine Ratio 8.5 L, Glucose 312 H, Calcium 7.9 L, Troponin I 0.027 07/05/20 00:28: Lactic Acid 1.3 07/05/20 04:20: Urine Color Yellow, Urine Clarity Clear, Urine pH 7.0, Ur Specific [place] 1.010, Urine Protein Negative, Urine Glucose (UA) 1000 H, Urine Ketones Negative, Urine Occult Blood 50 H, Urine Nitrite Negative, Urine Bilirubin Negative, Urine Urobilinogen 1 H, Ur Leukocyte Esterase Negative, Urine RBC 0-5 SEEN, Urine WBC 0 SEEN, Ur Squamous Epith Cells 0 SEEN, Urine Bacteria 0 SEEN, Urine Mucus 0 SEEN 07/05/20 05:40: WBC 5.2, RBC 3.88 L, Hgb 12.2 L, Hct 35.0 L, MCV 90.2, MCH 31.4, MCHC 34.9, RDW Std Deviation 46.5 H, RDW Coeff of Ramya 14.3, Plt Count 52 L, MPV 11.9, Immature Gran % (Auto) 0.200, Neut % (Auto) 62.3, Lymph % (Auto) 20.9, Noble % (Auto) 13.3 H, Eos % (Auto) 2.7, Baso % (Auto) 0.6, Absolute Neuts (auto) 3.2, Absolute Lymphs (auto) 1.08, Nucleated RBC % 0 07/05/20 05:40: Sodium 137, Potassium 3.8, Chloride 107, Carbon Dioxide 27.0, Anion Gap 3 L, BUN 5 L, Creatinine 0.74, Estim Creat Clear Calc 149.08, Est GFR (MDRD) Af Amer 146, Est GFR (MDRD) Non-Af 121, BUN/Creatinine Ratio 6.7 L, Glucose 165 H, Calcium 7.6 L, Total Bilirubin 1.40 H, AST 40 H, ALT 28, Alkaline Phosphatase 108, Total Protein 6.5, Albumin 2.9 L, Globulin 3.6, Albumin/Globulin Ratio 0.8 L Current Medications Acetaminophen (Tylenol) 650 mg PO Q6H PRN PRN PRN Reason: Pain Score 1-10/Temp > 100.7 F Last Admin: 07/05/20 08:35 Dose: 650 mg Documented by: Sodium Chloride () 1,000 mls @ 100 mls/hr IV .Q10H [facility] Last Admin: 07/05/20 14:37 Dose: 100 mls/hr Documented by: Cefazolin Sodium 2 gm/ Sodium (Chloride) 110 mls @ 150 mls/hr IV Q8 [facility] Last Admin: 07/05/20 14:37 Dose: 150 mls/hr Documented by: Sodium Chloride () 250 mls @ 15 mls/hr IV .[id number] PRN PRN Reason: Saline Flush Melatonin (Melatonin) 3 mg PO QHS PRN PRN PRN Reason: INSOMNIA Methocarbamol (Robaxin) 500 mg PO QHS [facility] Ondansetron HCl (Zofran) 4 mg IV Q8H PRN PRN PRN Reason: NAUSEA/VOMITING Last Admin: 07/05/20 08:35 Dose: 4 mg Documented by: Oxycodone HCl (Oxyir) 5 mg PO BID [facility] Last Admin: 07/05/20 06:03 Dose: 5 mg Documented by: Sodium Chloride () 10 - 40 ml IV UD PRN PRN Reason: SALINE FLUSH Medical Necessity - Tobacco Use Smoking Status: Former smoker Tobacco Use: Non-smoker Assessment/Plan All Active Problems Ulcer of right lower extremity with fat layer exposed (Acute) Cellulitis (Ruled-out) 1. Sepsis secondary to left lower extremity cellulitis: Patient admitted on [facility] floor. On IV fluids and antibiotics. Venous Doppler was done and is negative for DVT. With history of chronic thrombocytopenia, severe platelet 150,000, role of anticoagulant was discussed with the patient. Modified Wells criteria was calculated and it is 1.5, low risk for PE and 1.5 for DVT that is less than 4 risk for DVT. Patient had history of 2 times DVT in right leg as he has problem with the right knee ligament injury in the past. Patient decided not to go for VQ scan as test seemed futile for therapeutic purpose as he is not good candidate for anticoagulation. Currently on IV cefazolin 2 g every 8 hourly. Blood cultures x2 are pending. Culture pending. 2.Atypical chest pain probably musculoskeletal: Patient never chest pain on the floor different than in ER. He describes chest pain as around the left nipple area without radiation, constant for 1 hour with relieved with lifting the left arm. Repeat EKG shows normal sinus rhythm at [address]-T changes. It is similar to the first EKG. Repeat troponin. First troponin negative. 3. 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 Albumin 2.9. He never had paracentesis. 3. Chronic pain secondary to bulging disks in his lower back -Continue with his home pain regimen 4. HTN: Blood pressure is controlled. 5. BPH: On Flomax. DVT: SCDs
[2020-07-05] MEDS: Ibuprofen 600 MG Tablet PO (15:16)
[2020-07-05] MEDS: Gabapentin 300 MG Capsule PO (18:24)
[2020-07-05] MEDS: Methocarbamol 500 MG Tablet PO (21:30)
[2020-07-06] VITALS (17 sets, daily range): BP systolic 141–193; BP diastolic 60–83; PULSE 79–96; RESP 14–20; TEMP 36.6–37.2; O2SAT 91–99
[2020-07-06] MEDS: MELATONIN 3 MG TABLET PO (02:05)
[2020-07-06] MEDS: Cefazolin 2 GM in 0.9% Normal Saline 100 ML IV ×3 (05:10→23:01)
--- NOTE | 2020-07-06 08:41 | NURSING ---
This nurse in to see pt, asked how he was doing this morning. pt stated, Not good. pt states he has had chest pain for a couple hours now. Doesnt feel like it did yesterday. feels like something is in my chest. States pain radiates from middle of chest to to upper rt and lt lobes. This nurse taking Vital Signs. BP 185/63. HR 90.
[2020-07-06] MEDS: Gabapentin 300 MG Capsule PO ×2 (08:48→18:30)
[2020-07-06] MEDS: oxyCODONE 5 MG Tablet PO (09:14)
--- NOTE | 2020-07-06 09:43 | EKG12_ITS ---
Test Reason : CP Blood Pressure : / mmHG Vent. Rate : 081 BPM Atrial Rate : 081 BPM P-R Int : 156 ms QRS Dur : 096 ms QT Int : 392 ms P-R-T Axes : 064 037 057 degrees QTc Int : 455 ms Normal sinus rhythm Normal ECG When compared with ECG of 05-JUL-2020 00:11, MANUAL COMPARISON REQUIRED, DATA IS UNCONFIRMED Confirmed by JILLIAN CULLEN, HERMILA ([id number]), editorial project manager ELICIA BARBA ([id number]) on 07/10/2020 12:43:05 PM Referred By: PRASANNA Confirmed By:HERMILA WALSH MD
--- NOTE | 2020-07-06 09:45 | NURSING ---
This nurse tried to give the Flu Vaccine to pt this morning, pt refused. Not now. Will try again later.
--- NOTE | 2020-07-06 10:04 | NM_ITS ---
CLINICAL: 45-year-old male with reported history of pleuritic chest discomfort. VENTILATION-PERFUSION LUNG SCINTIGRAPHY COMPARISON: Plain film chest radiograph report 07/05/2020 FINDINGS: The patient was administered 47.4 mCi 99m Tc DTPA aerosol. The aerosol ventilation study demonstrates heterogeneous ventilation identified throughout the bilateral lung serna without corresponding radiographic changes defined on plain film chest x-ray report dated 07/05/2020. Central clumping of the aerosol is noted in the bilateral hemithorax. Following the intravenous administration of 5.5 mCi of 99m Tc MAA the pulmonary perfusion study reveals uniform perfusion throughout both lung serna. There are no segmental or subsegmental perfusion defects identified. There are no ventilation-perfusion mismatches observed. NM/Lung Scan Vent/Perf IMPRESSION: 1. NORMAL 99m Tc MAA pulmonary perfusion imaging examination, according to PIOPED II interpretive criteria. (Sotsman et al, Radiology 246: 941, 2008 Sodilma et al, J Nucl Med 49: 1741, 2008). 2. Central clumping of the aerosol may be secondary to obstructive airway mechanics and or clinical tachypnea. Electronically Signed: Anibal Bright DO at 12:39 EDT Tel , Service support ,
[2020-07-06] MEDS: Lisinopril 20 MG Tablet PO (10:31)
[2020-07-06] MEDS: Enalaprilat 1.25 MG/ML Vial IV (10:31)
[2020-07-06] MEDS: 0.9% Saline Lock 10 ML Syringe IV ×3 (10:32→22:47)
--- NOTE | 2020-07-06 10:55 | NURSING ---
Pt is off the floor at this time.
[2020-07-06] MEDS: Ketorolac 15 MG/ML Vial IV (12:10)
--- NOTE | 2020-07-06 13:17 | NURSING ---
Dr. Goel aware that BP still high despite Vasotec and Lisinopril. Wants pt to go to PCU.
--- NOTE | 2020-07-06 13:21 | PCM.PN.HOSP ---
Reason for Visit: Hypertensive urgency. Blood pressure 185/63. Had 1.25 mg IV enalapril with no change in blood pressure. Patient again had chest pain in the morning which seems more musculoskeletal. EKG and troponin was again done and was normal with no change from the previous EKG Furthermore, patient had VQ scan which was read normal. Physical exam General: Alert, Oriented x3, Cooperative, morbid obesity, BMI 47.3 HEENT: Atraumatic, PERRLA, EOMI, Normocephalic Oral: No Gingival or Mucosal Lesions/ Ulcerations Neck: Supple, No JVD, Negative Carotid Bruits Lungs: Air entry diminished in bilateral lung bases. No crepitation/rhonchi. Mild reproducible tenderness on the left subclavicular region Cardiovascular: Regular rate, Regular Rhythm, Normal S1, Normal S2, No murmurs Abdomen: Mild abdominal distention. Fat abdomen. No significant shifting dullness palpable. Bowel Sounds Present, Soft, Non Tender : No renal angle tenderness. No suprapubic tenderness. Extremities: Bilateral lower extremity edema. Capillary Refill Less than 3 Seconds Skin: Macular rash present over left thigh. Musculoskeletal: No Tenderness to Palpation of Joints or Extremities Neurological: Cranial nerves II-XII grossly intact, Deep Tendon Reflexes 2+/4 and Symmetrical, Neuro grossly intact Psych/Mental Status: Normal Affect, Appropriate. Vitals/I&O's: Vital Signs Temp Pulse Resp BP Pulse Ox 98.5 F 91 20 H 185/60 H 99 07/06/20 12:16 07/06/20 12:16 07/06/20 12:16 07/06/20 12:16 07/06/20 12:16 Oxygen Delivery Method Room Air Weight: 378 lb 1.484 oz Body Mass Index (BMI) 47.2 Finger Stick Blood Glucose 274 Intake and Output for Last 24 Hours 07/04/20 07/05/20 07/06/20 23:59 23:59 23:59 Intake Total 4163.99 / 4763.99 1430 / 1430 Output Total 575 / 575 1800 / 1800 Balance 3588.99 / 4188.99 -370 / -370 Laboratory Results 07/05/20 15:20: Troponin I 0.020 07/06/20 10:10: Troponin I 0.025 Current Medications Acetaminophen (Tylenol) 650 mg PO Q6H PRN PRN PRN Reason: Pain Score 1-10/Temp > 100.7 F Last Admin: 07/05/20 14:57 Dose: 650 mg Documented by: Enalaprilat (Vasotec) 1.25 mg IV Q6 PRN PRN Reason: sbp>170 Last Admin: 07/06/20 10:31 Dose: 1.25 mg Documented by: Gabapentin (Neurontin) 300 mg PO BIDCOX BRANSON Last Admin: 07/06/20 08:48 Dose: 300 mg Documented by: Cefazolin Sodium 2 gm/ Sodium (Chloride) 110 mls @ 150 mls/hr IV Q8 [facility] Last Infusion: 07/06/20 06:01 Dose: Infused Documented by: Sodium Chloride () 250 mls @ 15 mls/hr IV .[id number] PRN PRN Reason: Saline Flush Ketorolac Tromethamine (Toradol (Bkc)) 15 mg IV Q6 PRN PRN Reason: Pain Score 6-10/10 Stop: 07/11/20 09:04 Last Admin: 07/06/20 12:10 Dose: 15 mg Documented by: Melatonin (Melatonin) 3 mg PO QHS PRN PRN PRN Reason: INSOMNIA Last Admin: 07/06/20 02:05 Dose: 3 mg Documented by: Methocarbamol (Robaxin) 500 mg PO QHS [facility] Last Admin: 07/05/20 21:30 Dose: 500 mg Documented by: Ondansetron HCl (Zofran) 4 mg IV Q8H PRN PRN PRN Reason: NAUSEA/VOMITING Last Admin: 07/05/20 08:35 Dose: 4 mg Documented by: Ondansetron HCl (Zofran Odt) 4 mg PO Q8H PRN PRN PRN Reason: NAUSEA/VOMITING Oxycodone HCl (Oxyir) 5 mg PO BID [facility] Last Admin: 07/06/20 09:14 Dose: 5 mg Documented by: Sodium Chloride () 10 - 40 ml IV UD PRN PRN Reason: SALINE FLUSH Last Admin: 07/06/20 12:10 Dose: 10 ml Documented by: STROKE Vital Signs/Narrative: Vital Signs Temp Pulse Resp BP Pulse Ox 07/06/20 12:16 98.5 F 91 20 H 185/60 H 99 Medical Necessity - Tobacco Use Smoking Status: Former smoker Tobacco Use: Non-smoker Assessment/Plan All Active Problems Ulcer of right lower extremity with fat layer exposed (Acute) Cellulitis (Ruled-out) 1. Sepsis secondary to left lower extremity cellulitis: [facility] On IV fluids and antibiotics. Venous Doppler was done and is negative for DVT. With history of chronic thrombocytopenia, severe platelet 150,000, role of anticoagulant was discussed with the patient. Modified Wells criteria was calculated and it is 1.5, low risk for PE and 1.5 for DVT that is less than 4 risk for DVT. Patient had history of 2 times DVT in right leg as he has problem with the right knee ligament injury in the past. Patient decided not to go for VQ scan as test seemed futile for therapeutic purpose as he is not good candidate for anticoagulation. Currently on IV cefazolin 2 g every 8 hourly. Blood cultures x2 are pending. Culture pending. 2. Atypical chest pain probably musculoskeletal: Patient never chest pain on the floor different than in ER. He describes chest pain as around the left nipple area without radiation, constant for 1 hour with relieved with lifting the left arm. Repeat EKG shows normal sinus rhythm at [address]-T changes. Patient had serial EKG and troponin continuously 3 times in last 2 days and are negative for acute coronary syndrome. No ischemic changes. Furthermore, patient had VQ scan which was reported normal. 3. Hypertensive urgency: Patient is being transferred to PCU on IV labetalol 20 mg every 6 hourly as needed, IV enalapril and hydralazine oral 50 mg 3 times daily. Blood parameter ordered 4. 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 Albumin 2.9. He never had paracentesis. 5. Chronic pain secondary to bulging disks in his lower back -Continue with his home pain regimen 6. HTN: Blood pressure is controlled. 7. BPH: On Flomax. DVT: SCDs Total time of the visit including total time spent in counseling or coordination of care, (more than 50% of the total time, spent in obtaining medical information from nurses and other ancillary care providers) , review of labs and imaging is 30 minutes. Clinical Impression(s) from Imaging Studies Chest X-Ray 07/05/20 00:20 IMPRESSION: Normal x-ray examination of the chest. Electronically Signed: Milton Snider MD at 1:00 EDT , Service support , Chest CTA 07/05/20 00:55 IMPRESSION: There is inadequate IV contrast to detect pulmonary embolism. There is inadequate IV contrast detect dissection of the aorta. Repeat examination or VQ scan may be helpful. Normal heart and pericardium. The lungs are well expanded. Normal pulmonary parenchyma. Normal pleura. Liver and spleen are enlarged. There has been a cholecystectomy. Lung Scan-VQ NM 07/06/20 10:04 IMPRESSION: 1. NORMAL 99m Tc MAA pulmonary perfusion imaging examination, according to PIOPED II interpretive criteria. (Sotsman et al, Radiology 246: 941, 2008 Sodilma et al, J Nucl Med 49: 1741, 2008). 2. Central clumping of the aerosol may be secondary to obstructive airway mechanics and or clinical tachypnea. Inpatient E&M: 50626 [facility] L3
--- NOTE | 2020-07-06 13:59 | NURSING ---
Report given to MARIA EUGENIA Monahan in PCU.
[2020-07-06] MEDS: HYDROmorphone 1 MG/ML Syringe IV (14:35)
[2020-07-06] MEDS: hydrALAZINE 50 MG Tablet PO ×2 (15:16→22:46)
[2020-07-06] MEDS: oxyCODONE CR 15 MG Tablet PO ×2 (16:06→22:46)
[2020-07-06] MEDS: Labetalol (Prefilled) 20 MG/4 ML IV (16:07)
[2020-07-06] MEDS: Ondansetron 4 MG/2 ML Vial IV (19:01)
[2020-07-06] MEDS: Methocarbamol 500 MG Tablet PO (22:47)
[2020-07-06] MEDS: proCHLORPERazine 10 MG/2 ML Vial 5 MG IV (22:47)
[2020-07-07] MEDS: Ondansetron 4 MG/2 ML Vial IV ×2 (02:24→08:32)
[2020-07-07] MEDS: 0.9% Saline Lock 10 ML Syringe IV (02:24)
[2020-07-07 03:03] VITALS: PULSE 97
[2020-07-07 04:32] VITALS: BP 157/78; PULSE 100; RESP 12; TEMP 36.6; O2SAT 95
[2020-07-07 05:25] VITALS: PULSE 99
[2020-07-07] MEDS: hydrALAZINE 50 MG Tablet PO (05:25)
[2020-07-07] MEDS: Cefazolin 2 GM in 0.9% Normal Saline 100 ML IV (05:26)
[2020-07-07 07:02] VITALS: PULSE 102
[2020-07-07 09:53] VITALS: BP 171/53; PULSE 103; RESP 16; TEMP 36.6; O2SAT 97
--- NOTE | 2020-07-07 10:05 | DCINST_ITS ---
You will use the following diet at home:: Calorie/Carbohydrate Controlled (specify 1200, 1400, etc), Cardiac Your food should be the consistency of: Regular Discharge Activity: May Not Drive Call your doctor if you observe: Fever of 101 or Higher, Coldness, Increased Pain, Numbness or Tingling, Change in Color, Inability to urinate, Shortness of breath, Dizziness, Fainting spells, Swelling in the ankles, Chest pain, Prolonged hiccoughing, Increased palpitations (irregular heartbeat), Calf discomfort, Uncontrolled pain Additional Instructions: Follow-up with [facility] and medical office professional [place] for Soriano/cirrhosis. Allergies/Adverse Reactions: Allergies No Known Allergies Allergy (Verified 07/05/20 00:03) Medications to take at Discharge Methocarbamol [Robaxin] 500 mg PO QHS 01/07/17 Gabapentin [Neurontin] 300 mg PO BID 02/11/19 Ondansetron [Zofran Odt] 4 mg PO Q8H PRN PRN #20 tablet 02/14/19 Oxycodone [Oxyir] 5 mg PO BID 06/25/19 Dupilumab [Dupixent Syringe] 300 mg SQ .[id number] 04/09/20 Cefadroxil 1 gm PO BID #10 tab 07/07/20 hydrALAZINE [Apresoline] 75 mg PO TID #100 tab 07/07/20 The following prescriptions were given: hydrALAZINE [Apresoline] 75 mg PO TID #100 tab Transmission Status: Pending to [facility] Cefadroxil 1 gm PO BID #10 tab Transmission Status: Pending to [facility] Primary Care Physician: Joselyn Cummings DO [Primary Care Provider] - Please follow up with your Primary Care Physician in: in 2 weeks Test Results: Test results from this visit will be discussed in further detail at your follow- up appointment, if applicable. Please Follow Up With: Rafael Beck MD When: for pain
--- NOTE | 2020-07-07 10:06 | PCM.DC.SUM ---
Discharge Date and Diagnosis Date of Admission: 07/05/20 Date of Discharge: 07/07/20 - Primary Discharge Diagnosis Acute Problems: Sepsis secondary left lower extremity cellulitis. Atypical chest pain most probably musculoskeletal. ACS, PE and DVT ruled out. 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) Morbid obesity due to excess calories (Chronic) Diabetes mellitus with complication (Chronic) Edema (Chronic) Venous insufficiency (Chronic) Other intervertebral disc degeneration, lumbar region (Chronic) Other intervertebral disc degeneration, lumbar region (Chronic) Spinal stenosis of lumbar region with neurogenic claudication (Chronic) Spinal stenosis of lumbar region with neurogenic claudication (Chronic) 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 He also had left-sided upper chest pain. 1. Sepsis secondary to left lower extremity cellulitis: Patient admitted on MedSurg floor. On IV fluids and antibiotics. Patient cellulitis got better and discharged home Duricef 1 g twice daily for 5 more days. Blood culture no growth for more than 48 hours. Urine culture negative. VQ scan was done and is negative for PE; reported normal. 2. Atypical chest pain probably musculoskeletal: Patient never chest pain on the floor different than in ER. He describes chest pain as around the left nipple area without radiation, constant for 1 hour with relieved with lifting the left arm. Repeat EKG shows normal sinus rhythm at [address]-T changes. Patient had serial EKG x3 and troponin continuously 3 times in last 2 days and are negative for acute coronary syndrome. No ischemic changes. Furthermore, patient had VQ scan which was reported normal. Venous Doppler was done and is negative for DVT. Patient denies history of DVT in the past. Currently he has chronic thrombocytopenia. 3. Hypertensive urgency: Patient is being transferred to PCU on IV labetalol 20 mg every 6 hourly as needed, IV enalapril and hydralazine oral 50 mg 3 times daily. Blood parameter ordered 4. 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 Albumin 2.9. He never had paracentesis. 5. Chronic pain secondary to bulging disks in his lower back -Continue with his home pain regimen. Patient follows Dr. Beck and is on OxyIR. 6. HTN: Blood pressure is controlled. 7. BPH: On Flomax. DVT: SCDs Discharge medication reconciliation done. Discharge follow-up instructions completed. Discharge process discussed with the patient and all questions were answered to patient and his satisfaction. Prescription sent to patient pharmacy. Total time spent, exact 35 minutes on discharge meds reconciliation, examination, coordination of care with nurses and ancillary staff, review of imaging and blood test and discussion with the patient on follow-up instructions Objective: Seen and examined. Heart rate in 100s. Blood pressure is elevated 171/53 controlled to 160/59. Patient wants to go home. Patient had back pain yesterday after nuclear VQ scan. Also feels nausea and takes Zofran at home. Physical exam General: Alert, Oriented x3, Cooperative, morbid obesity, BMI 47.3 HEENT: Atraumatic, PERRLA, EOMI, Normocephalic Oral: No Gingival or Mucosal Lesions/ Ulcerations Neck: Supple, No JVD, Negative Carotid Bruits Lungs: Air entry diminished in bilateral lung bases. No crepitation/rhonchi. Mild reproducible tenderness on the left subclavicular region Cardiovascular: Regular rate, Regular Rhythm, Normal S1, Normal S2, No murmurs Abdomen: Mild abdominal distention. Fat abdomen. No significant shifting dullness palpable. Bowel Sounds Present, Soft, Non Tender : No renal angle tenderness. No suprapubic tenderness. Extremities: Bilateral lower extremity edema. Capillary Refill Less than 3 Seconds Skin: Macular rash present over left thigh. Musculoskeletal: No Tenderness to Palpation of Joints or Extremities Neurological: Cranial nerves II-XII grossly intact, Deep Tendon Reflexes 2+/4 and Symmetrical, Neuro grossly intact Psych/Mental Status: Normal Affect, Appropriate. - Physical Exam Vitals/I&O's: Vital Signs Temp Pulse Resp BP Pulse Ox 98 F 103 H 16 171/53 H 97 07/07/20 09:53 07/07/20 09:53 07/07/20 09:53 07/07/20 09:53 07/07/20 09:53 Oxygen Delivery Method Room Air Weight: 378 lb 1.484 oz Body Mass Index (BMI) 47.2 Finger Stick Blood Glucose 274 Intake and Output for Last 24 Hours 07/05/20 07/06/20 07/07/20 23:59 23:59 23:59 Intake Total 4163.99 / 4763.99 2570.25 / 2680.25 682.5 / 682.5 Output Total 575 / 575 2725 / 2725 960 / 960 Balance 3588.99 / 4188.99 -154.75 / -44.75 -277.5 / -277.5 Microbiology Past 72 Hours 07/05/20 04:20 Urine, Clean Catch Urine Culture - Final Culture exhibits no growth. 07/05/20 04:12 Blood Culture (Wb) - Right Hand Blood Culture - Preliminary No growth in 48 hours. 07/05/20 04:10 Blood Culture (Wb) - Anticubital Left Blood Culture - Preliminary No growth in 48 hours. Laboratory Results 07/06/20 10:10: Troponin I 0.025 Current Medications Acetaminophen (Tylenol) 650 mg PO Q6H PRN PRN PRN Reason: Pain Score 1-10/Temp > 100.7 F Last Admin: 07/05/20 14:57 Dose: 650 mg Documented by: Enalaprilat (Vasotec) 1.25 mg IV Q6 PRN PRN Reason: sbp>170 Last Admin: 07/06/20 10:31 Dose: 1.25 mg Documented by: Gabapentin (Neurontin) 300 mg PO BIDCM [facility] Last Admin: 07/07/20 08:36 Dose: Not Given Documented by: Hydralazine HCl (Apresoline) 50 mg PO TID [facility] Last Admin: 07/07/20 05:25 Dose: 50 mg Documented by: Hydromorphone HCl (Dilaudid Inj) 1 mg IV Q3H PRN PRN PRN Reason: Pain Score 7-10/10 Last Admin: 07/06/20 14:35 Dose: 1 mg Documented by: Cefazolin Sodium 2 gm/ Sodium (Chloride) 110 mls @ 150 mls/hr IV Q8 [facility] Last Infusion: 07/07/20 06:10 Dose: Infused Documented by: Sodium Chloride () 250 mls @ 15 mls/hr IV .[id number] PRN PRN Reason: Saline Flush Last Infusion: 07/07/20 06:10 Dose: 15 mls/hr Documented by: Ketorolac Tromethamine (Toradol (Bkc)) 15 mg IV Q6 PRN PRN Reason: Pain Score 6-10/10 Stop: 07/11/20 09:04 Last Admin: 07/06/20 12:10 Dose: 15 mg Documented by: Labetalol HCl (Trandate) 20 mg IV Q4H PRN PRN Reason: SBP>180 [facility] Last Admin: 07/06/20 16:07 Dose: 20 mg Documented by: Melatonin (Melatonin) 3 mg PO QHS PRN PRN PRN Reason: INSOMNIA Last Admin: 07/06/20 02:05 Dose: 3 mg Documented by: Methocarbamol (Robaxin) 500 mg PO QHS [facility] Last Admin: 07/06/20 22:47 Dose: 500 mg Documented by: Ondansetron HCl (Zofran) 4 mg IV Q6H PRN PRN PRN Reason: NAUSEA Last Admin: 07/07/20 08:32 Dose: 4 mg Documented by: Oxycodone HCl (Oxyir) 10 mg PO Q4H PRN PRN PRN Reason: Pain Score 6-10/10 Oxycodone HCl (Oxycontin) 15 mg PO BID [facility] Last Admin: 07/07/20 09:54 Dose: Not Given Documented by: Prochlorperazine Edisylate (Compazine Iv) 5 mg IV Q4H PRN PRN PRN Reason: NAUSEA Last Admin: 07/06/20 22:47 Dose: 5 mg Documented by: Sodium Chloride () 10 - 40 ml IV UD PRN PRN Reason: SALINE FLUSH Last Admin: 07/07/20 02:24 Dose: 30 ml Documented by: Home Medications: Medications to take at Discharge Methocarbamol [Robaxin] 500 mg PO QHS 01/07/17 Gabapentin [Neurontin] 300 mg PO BID 02/11/19 Ondansetron [Zofran Odt] 4 mg PO Q8H PRN PRN #20 tablet 02/14/19 Oxycodone [Oxyir] 5 mg PO BID 06/25/19 Dupilumab [Dupixent Syringe] 300 mg SQ .[id number] 04/09/20 Cefadroxil 1 gm PO BID #10 tab 07/07/20 hydrALAZINE [Apresoline] 75 mg PO TID #100 tab 07/07/20 Following Prescriptions Were Given to Patient: hydrALAZINE [Apresoline] 75 mg PO TID #100 tab Transmission Status: Received by [facility]30 Cefadroxil 1 gm PO BID #10 tab Transmission Status: Received by [facility]30 Primary Care Physician: Joselyn Cummings DO [Primary Care Provider] - Medical Necessity - Tobacco Use Smoking Status: Former smoker Tobacco Use: Non-smoker Meaningful Use Info Meaningful Use Diagnoses (Choose all that apply): None applicable Inpatient E&M: 412[address] [facility]
[2020-07-07 11:50] VITALS: BP 160/59; PULSE 103; RESP 16; TEMP 36.5; O2SAT 96
--- NOTE | 2020-07-09 13:49 | CASEMGMT ---
MARIA EUGENIA BERMUDEZ DC PHONE CALL DC DATE: 07/07/2020 DC Disposition: Home Diagnosis on Discharge: Sepsis, cellulitis. LACE/STRATA: 08/14 Attempted call to patient's phone, no answer. No message left due to no name identifier on messaging. Rickie SINGHN RN AC
--- NOTE | 2020-07-12 13:18 | EKG12_ITS ---
Test Reason : CP Blood Pressure : / mmHG Vent. Rate : 101 BPM Atrial Rate : 101 BPM P-R Int : 154 ms QRS Dur : 084 ms QT Int : 350 ms P-R-T Axes : 032 015 062 degrees QTc Int : 453 ms Sinus tachycardia Septal infarct , age undetermined Abnormal ECG Confirmed by MICHAEL CULLEN, PHIL ([id number]), purchasing expeditor ELICIA BARBA ([id number]) on 07/12/2020 1:20:36 PM Referred By: OLY Confirmed By:ISACC RODRIGUEZ MD
== END 2020-07-07 11:53 | disposition home or self-care (01) | DRG 872 ==
LOC: ED 02:39 → MS3 04:26 → PCU 07-06 14:14
PROVIDERS: Admitting Provider Family Medicine; Emergency Provider Student in an Organized Health Care Education/Training Program; PCP Internal Medicine; Visit Provider Internal Medicine
DX: A41.9 Sepsis, unspecified organism (principal); L03.116 Cellulitis of left lower limb; Z68.42 Body mass index [BMI] 45.0-49.9, adult; R07.89 Other chest pain; I16.0 Hypertensive urgency; K75.81 Nonalcoholic steatohepatitis (NASH); K74.60 Unspecified cirrhosis of liver; D69.6 Thrombocytopenia, unspecified; I87.2 Venous insufficiency (chronic) (peripheral); E11.9 Type 2 diabetes mellitus without complications; E66.01 Morbid (severe) obesity due to excess calories; M51.16 Intervertebral disc disorders with radiculopathy, lumbar region; G89.29 Other chronic pain; I10 Essential (primary) hypertension; N40.0 Benign prostatic hyperplasia without lower urinary tract symptoms; Z82.49 Family history of ischemic heart disease and other diseases of the circulatory system; Z82.5 Family history of asthma and other chronic lower respiratory diseases; Z86.718 Personal history of other venous thrombosis and embolism; Z87.891 Personal history of nicotine dependence
CPT/HCPCS: 36415; 71045; 71275; 78582; 80048; 80053; 81001; 83605; 84484; 85025; 85379; 85610; 85730; 87040; 87086; 93005; 93970; 97162; 99251; 99285; A9540; A9567; J7030; J7050; Q9967; A4216; G0463; J2405

== ENCOUNTER 2020-10-05 12:02 | Observation (INO) | payer OTHER, SELFPAY ==
[2020-07-05 05:21] VITALS: BMI 47.2
[2020-10-05] VITALS (18 sets, daily range): BP systolic 134–173; BP diastolic 41–111; PULSE 68–113; RESP 16–22; TEMP 36.6–37.6; O2SAT 94–97; BMI 46.8
--- NOTE | 2020-10-05 12:21 | CT_ITS ---
STUDY: CT ABDOMEN AND PELVIS WITH CONTRAST REASON FOR EXAM: Male, 45 years old. PERIRECTAL PAIN AND FULLNESS X 3 DAYS RADIATION DOSAGE (If Supplied By Facility): CTDIvol = ( 32.03 ) mGy, DLP = ( 1664.73 ) mGycm TECHNIQUE: Transaxial images were obtained from the dome of the diaphragm to the symphysis pubis without oral contrast. IV 100mL Isovue-300 was administered. Sagittal and coronal images were reconstructed. Individualized dose optimization techniques were used for this CT. COMPARISON: 03/08/2020. FINDINGS: Lung bases are clear. Heart size is normal. Diffuse fatty infiltration of the liver. Nodular hepatic contour consistent with cirrhosis. Small portal vein is consistent with portal hypertension and possible occlusion with cavernous transformation. These findings are unchanged compared to the prior study. The gallbladder is surgically absent. Normal pancreas. Spleen is moderately enlarged measuring up to 21 cm AP. Enlarged splenic vein. Prominent retroperitoneal varices. The adrenal glands are normal. The kidneys are unremarkable. No stones or hydronephrosis. The aorta is normal in caliber. There is no free fluid or free air. No bowel obstruction or inflammatory change. Normal appendix. Urinary bladder is unremarkable. Normal osseous structures. 2.6 x 5.1 x 6 cm perianal collection posterior and inferior to the anal verge. Trace foci of gas within the collection. Mild inflammatory stranding surrounding the collection. CT/Abdomen/Pelvis W IV Cont ONLY IMPRESSION: 1. Perianal abscess. 2. 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 3. Hepatic steatosis. Electronically Signed: Deanna Jimenez MD at 13:34 EST Tel , Service support ,
--- NOTE | 2020-10-05 12:22 | ED.DCSUM_ITS ---
History of Present Illness Chief Complaint: Cellulitis Informant: Patient Onset: Days Maximum Severity: Mild Narrative: Presents complaining of perirectal pain and fullness for about 2 days he noticed some slight blood tingeing when he wiped after bowel movements. He has no history of any perirectal problems. He has a history of nonalcoholic cirrhosis related fatty liver stable no diabetes, his urinary habits are normal his bowel habits are loose, he is having intense pain that shoots into his scrotum. No fever no cough no coronavirus exposures Past Medical History - Allergies and Home Meds Allergies/Adverse Reactions: Allergies No Known Allergies Allergy (Verified 10/05/20 12:04) Primary Care Physician: Joselyn Cummings DO [Primary Care Provider] - Past Medical History: - - Nonalcoholic cirrhosis likely related to fatty liver by his history Surgical History: cholecystectomy, - - Foot surgery, Finger surgery, Testicular surgery, ? EGD/[facility]aro. Smoking Status: Former smoker - Family History Maternal Family History: Reports: COPD, Hypertension Paternal Family History: Reports: Cancer Review of Systems General: Denies: Chills, Fever, Sweats Eyes: Denies: Visual changes - bilaterally, Diplopia ENT: Denies: Rhinorrhea, Sore throat Cardiovascular: Denies: Chest pain, Palpitations Respiratory: Denies: Dyspnea, Cough, Dyspnea on exertion Gastrointestinal: Denies: Abdominal pain, Nausea, Vomiting, Diarrhea, Melena, Hematochezia Genitourinary: Reports: - - Rectal pain. Denies: Dysuria, Hematuria, Frequency Musculoskeletal: Denies: Back pain, Extremity Pain Skin: Denies: Rash, Wounds Neurological: Denies: Headache, Weakness, Numbness Physical Exam Vital Signs/Narrative: Vital Signs Temp Pulse Resp BP Pulse Ox 10/05/20 12:04 98.4 F 113 H 17 158/111 H 95 General: Well nourished, Well developed, No Acute Distress Head: Normocephalic, Atraumatic Eyes: Perrl, EOMI ENT: Moist mucous membranes, No rhinorrhea Neck: Supple, Nontender Cardiovascular: Regular rate, Regular rhythm, No murmurs Respiratory: No distress, CTA bilaterally, Chest nontender Abdomen: Soft, Nontender, Nondistended, Normal bowel sounds Rectal: - - He has about a 4 cm area of perirectal fullness that extends slightly into the scrotal base, the scrotal area area testicles scrotal sac are all negative no signs of foreign years gangrene fullness redness, rectal exam shows some discomfort with palpation no obvious mass in the rectum Back: Nontender, Normal Inspection Extremities: Nontender, No edema Skin: Normal color, No rash Neurological: Alert, Oriented x3, Cranial nerves II-XII grossly intact, Normal Strength, Normal Sensation Psychological: Normal affect, Normal Mood Diagnostic/Tx/Re-eval - Medical Decision Making Given all the above differentials rather extensive perirectal abscess, IV fluids pain management CT and reevaluation CT scan showed shows a 3 x 5 x 6 cm perianal abscess see that report there is some small gas bubbles associated with the above, the patient indicates he cannot tolerate procedures that are done with local anesthetic and is asking to be basically put to sleep for the procedure, I spoke with Dr. Espinal who is on- call for surgery and he will be to see the patient shortly for further management options Disposition pending surgery evaluation Impression final perianal abscess ED Disposition - Plan for ED Patient: Referrals: Joselyn Cummings DO [Primary Care Provider] -
[2020-10-05] MEDS: morphine 8 MG/ML Syringe IV ×2 (12:39→13:04)
[2020-10-05] MEDS: Ondansetron 4 MG/2 ML Vial IV (12:39)
[2020-10-05 12:45] LABS: Absolute Lymphocyte Count 0.88 X10^3/uL (0.83-4.51); Absolute Neutrophil Count 4.6 X10^3/uL (2.0-7.7); Basophil# 0.02 X10^3/uL; Basophil% 0.3 % (0-1); Eosinophil# 0.17 X10^3/uL; Eosinophils% 2.7 % (0-5); Hematocrit 38.5 % (40-54); Hemoglobin 13.7 g/dL (13.0-16.5); Lymphocyte # 0.88 X10^3/ul (4.0); Lymphocyte % 13.8 % (19-41); Mean Corp Hgb Conc 35.6 g/dL (32-36); Mean Corpuscular Hgb 30.6 pg (27.0-32.0); Mean Corpuscular Volume 85.9 fL (80-94); Mean Platelet Vol. 11.8 fl (6.2-12.0); Monocyte# 0.62 X10^3/uL; Monocyte% 9.7 % (0-10); NRBC Flagged by Analyzer 0 % (0-5); Neutrophil # 4.64 X10^3/uL (2.7-7.7); POSITIVE COUNT YES; Platelet Count 73 K/mm3 (150-450); RBC Distribution Width CV 13.2 % (11.6-14.6); RBC Distribution Width SD 40.9 fl (35.1-43.9); Red Blood Count 4.48 M/mm3 (4.6-6.2); White Blood Count 6.4 K/mm3 (4.4-11.0)
[2020-10-05 12:57] LABS: Anion Gap 5 (5-15); BUN 8 mg/dL (7-18); BUN/Creat Ratio 9.4 RATIO (10-20); Calcium,Total 7.8 mg/dL (8.5-10.1); Chloride 106 mmol/L (98-107); Creatinine, Serum 0.86 mg/dL (0.70-1.30); EST Glomerular Filtration Rate 102 mL/min (>60); Est Glom Filt Rate - Afr Amer 124 mL/min (>60); Estimated Creatinine Clearance 128.28 ml/min; Glucose 315 mg/dL (74-106); Potassium 3.8 mmol/L (3.5-5.1); Sodium Level 137 mmol/L (136-145)
[2020-10-05 14:56] LABS: Bacteria 0 SEEN /hpf (None Seen); Mucous, Urine 0 SEEN /hpf (<or=2+); Squamous Epithelial Cells - UA 0 SEEN /hpf (0-5); White Blood Cells 0 SEEN /hpf (0-5)
[2020-10-05 15:10] LABS: Color, Urine Yellow (Yellow); Glucose, Dipstick 1000 mg/dl (Normal); Ketone-Dipstick 5 mg/dl (Negative); Leukocyte Esterase-Dipstick 25 /ul (Negative); Nitrite-Dipstick Negative (Negative); Occult Blood-Urine 150 /ul (Negative); Protein-Dipstick Negative (Negative); Urine Bilirubin Dipstick 1 mg/dL (Negative); Urine Clarity Clear (Clear); Urine Urobilinogen 8 mg/dl (Normal)
[2020-10-05 15:11] LABS: Red Blood Cells-Urine 0-5 SEEN /hpf (0-5)
[2020-10-05] MEDS: HYDROmorphone 0.5 MG/0.5 ML SYRINGE IV (15:59)
--- NOTE | 2020-10-05 16:24 | CON.PCM_ITS ---
Problem List (1) Perianal abscess Status: Acute Reason for Consult Date of Consultation: 10/05/20 History of Present Illness: The patient is a 45 year old M Presents complaining of perirectal pain and fullness for about 2 days he noticed some slight blood tingeing when he wiped after bowel movements. He has no history of any perirectal problems. He has a history of nonalcoholic cirrhosis related fatty liver stable no diabetes, his urinary habits are normal his bowel habits are loose, he is having intense pain that shoots into his scrotum. 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) Morbid obesity due to excess calories (Chronic) Diabetes mellitus with complication (Chronic) Edema (Chronic) Venous insufficiency (Chronic) Other intervertebral disc degeneration, lumbar region (Chronic) Other intervertebral disc degeneration, lumbar region (Chronic) Spinal stenosis of lumbar region with neurogenic claudication (Chronic) Spinal stenosis of lumbar region with neurogenic claudication (Chronic) 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 EGD/Lazaro. Psychiatric History: Attn. deficit disorder Smoking Status: Former smoker - *Family History Maternal History Items: COPD, Hypertension Paternal History Items: Cancer Review of Systems Constitutional: Denies: Chills, Fever, Weight Change Cardiovascular: Denies: Chest Pain, Chest Pressure, Chest Tightness, Palpitations Respiratory: Denies: Cough, Hemoptysis, Shortness of breath at rest, Shortness of breath upon exertion, Wheezing Gastrointestinal: Denies: Abdominal Pain, Constipation, Diarrhea, Hematemesis, Nausea, Melena, Vomiting - Physical Exam Vitals/I&O's: Vital Signs Temp Pulse Resp BP Pulse Ox 98 F 83 16 147/80 H 96 12/25/20 14:32 10/05/20 14:32 10/05/20 14:32 10/05/20 15:59 10/05/20 14:32 Oxygen Delivery Method Room Air Weight: 375 lb Body Mass Index (BMI) 46.8 Finger Stick Blood Glucose 274 Intake and Output for Last 24 Hours 10/03/20 10/04/20 10/05/20 23:59 23:59 23:59 Intake Total 600 / 600 Balance 600 / 600 General: Alert, Oriented x3 Lungs: Clear to auscultation Cardiovascular: Regular rate, Regular Rhythm, No murmurs Abdomen: Bowel Sounds Present, Soft, Non Tender, Non-Distended, - - Patient in the anterior perianal area has a fluctuant mass which is firm hard and tender. Microbiology Past 72 Hours 10/05/20 15:33 Mucosa - Nose SARS-CoV-2 Antigen (Rapid) - Final Laboratory Results 10/05/20 12:25: WBC 6.4, RBC 4.48 L, Hgb 13.7, Hct 38.5 L, MCV 85.9, MCH 30.6, MCHC 35.6, RDW Std Deviation 40.9, RDW Coeff of Ramya 13.2, Plt Count 73 L, MPV 11.8, Immature Gran % (Auto) 0.500, Neut % (Auto) 73.0 H, Lymph % (Auto) 13.8 L, [place] % (Auto) 9.7, Eos % (Auto) 2.7, Baso % (Auto) 0.3, Absolute Neuts (auto) 4.6, Absolute Lymphs (auto) 0.88, Nucleated RBC % 0 10/05/20 12:25: Sodium 137, Potassium 3.8, Chloride 106, Carbon Dioxide 26.0, Anion Gap 5, BUN 8, Creatinine 0.86, Estim Creat Clear Calc 128.28, Est GFR (MDRD) Af Amer 124, Est GFR (MDRD) Non-Af 102, BUN/Creatinine Ratio 9.4 L, Glucose 315 H, Calcium 7.8 L 10/05/20 14:50: Urine Color Yellow, Urine Clarity Clear, Urine pH 5.0, Ur Specific [place] 1.010, Urine Protein Negative, Urine Glucose (UA) 1000 H, Urine Ketones 5 H, Urine Occult Blood 150 H, Urine Nitrite Negative, Urine Bilirubin 1 H, Urine Urobilinogen 8 H, Ur Leukocyte Esterase 25 H, Urine RBC 0-5 SEEN, Urine WBC 0 SEEN, Ur Squamous Epith Cells 0 SEEN, Urine Bacteria 0 SEEN, Urine Mucus 0 SEEN Assessment/Plan All Active Problems Ulcer of right lower extremity with fat layer exposed (Acute) Perianal abscess (Acute) Cellulitis (Ruled-out) Plan will be perform an incision and drainage of the perianal abscess under general anesthetic. Patient will be admitted to the hospital after this for pain control. Risk benefits to include bleeding and infection were reviewed with the patient patient also understands that this might be the development of a fistula formation and we will need to watch for this over the next several months as this heals. Office Visits / Consults: [id number] IP Consult L4 - Modifier [id number]
[2020-10-05] MEDS: BUPIVACAINE LIPOSOME/PF 20 ML VIAL OPERA.SITE (16:30)
--- NOTE | 2020-10-05 16:50 | PCM.OPRPT ---
Problem List (1) Perianal abscess Status: Acute Report of Operation Date of Procedure: 10/05/20 Pre-Operative Diagnosis: Perianal abscess Post-Operative Diagnosis: Same Surgery/Procedure Performed:: Incision and drainage of perianal abscess Type of Anesthesia:: General Anesthesiologist: Michi Mullins Estimated Blood Loss (mL): < 25 cc Description of Procedure: Patient was brought into the operating room. Placed in the supine position. Under excellent general endotracheal ovation legs were placed up in stirrups the perineum from the scrotum down to the anus was sterilely prepped and draped in usual fashion. Exparel was injected. A 10 cm incision was made entering a large abscess cavity purulent in nature. Foul-smelling. Aerobic and anaerobic cultures were obtained. I irrigated out the wound. I use electrocautery for good in the stasis. I injected more Exparel around the wound. The depth of the cavity was approximately 4 cm the length was approximately 10 cm it did not appear to track in the anus nor up into the scrotum. The surrounding skin looked viable there was no areas of necrotic skin and there was no areas that tracked. I had a nice open cavity where I was able to irrigate out given the fact that this area was raw I did sprinkle some Ty onto the wound held some pressure. Remove the excess Exparel. Betadine Kerlix was then placed into the wound. ABD was placed into the wound. Sterile dressings were applied. - Admit VTE Documentation VTE Present on Admission: No VTE Mechan Device Prophylaxis: SCD's VTE Pharm Prophylaxis ordered?: No Reason prophylaxis not ordered:: Treatment Not Indicated [id number]: Other Procedure [place] [address]
[2020-10-05] MEDS: 0.9% Normal Saline 1,000 ML 100 ML IV (18:26)
[2020-10-05] MEDS: Calcium Carbonate 500 MG Tablet 1000 MG PO (18:44)
[2020-10-05 18:45] LABS: M R Staph aureus DNA By PCR Negative (Negative); Probe Check PASS; Specimen Processing Control PASS; Staph aureus DNA By PCR NEGATIVE (Negative)
--- NOTE | 2020-10-05 19:03 | PN_ITS ---
Patient Problems: Active and Suspected Problems Perianal abscess (Acute) Subjective: 45-year-old male presents to the hospital with a perianal abscess. He was taken to the OR and had this drained. His only chronic medical condition is chronic back pain he takes gabapentin, Robaxin and oxycodone for. He has gained 60 pounds he says over the last year and his blood sugars now up to 318 he does go to the doctor and his last A1c in 2019 was 4.8. He says that he has been getting thirstier over the last month or so. Vitals/I&O's: Vital Signs Temp Pulse Resp BP Pulse Ox 98.8 F 89 18 151/81 H 94 10/05/20 17:55 10/05/20 17:55 10/05/20 17:55 10/05/20 17:55 10/05/20 17:55 Oxygen Delivery Method Room Air Weight: 375 lb Body Mass Index (BMI) 46.8 Finger Stick Blood Glucose 274 Intake and Output for Last 24 Hours 10/03/20 10/04/20 10/05/20 23:59 23:59 23:59 Intake Total 600 / 600 Balance 600 / 600 General: Alert, Oriented x3, Cooperative, No apparent distress HEENT: Atraumatic, PERRLA, EOMI, Normocephalic Oral: Moist Mucosa Neck: Supple, No JVD Lungs: Clear to auscultation, Normal air movement, No rhonchi, No wheeze, No rales Cardiovascular: Regular rate, Regular Rhythm, Normal S1, Normal S2, No murmurs Abdomen: Soft, Non Tender, Non-Distended, No Hepato-splenomegaly Extremities: No edema, Capillary Refill Less than 3 Seconds Skin: No rashes, No breakdown Neurological: Neuro grossly intact, Sensory exam intact to light touch and pain Psych/Mental Status: Normal Affect, Appropriate Microbiology Past 72 Hours 10/05/20 15:33 Mucosa - Nose SARS-CoV-2 Antigen (Rapid) - Final Laboratory Results 10/05/20 12:25: WBC 6.4, RBC 4.48 L, Hgb 13.7, Hct 38.5 L, MCV 85.9, MCH 30.6, MCHC 35.6, RDW Std Deviation 40.9, RDW Coeff of Ramya 13.2, Plt Count 73 L, MPV 11.8, Immature Gran % (Auto) 0.500, Neut % (Auto) 73.0 H, Lymph % (Auto) 13.8 L, [place] % (Auto) 9.7, Eos % (Auto) 2.7, Baso % (Auto) 0.3, Absolute Neuts (auto) 4.6, Absolute Lymphs (auto) 0.88, Nucleated RBC % 0 10/05/20 12:25: Sodium 137, Potassium 3.8, Chloride 106, Carbon Dioxide 26.0, Anion Gap 5, BUN 8, Creatinine 0.86, Estim Creat Clear Calc 128.28, Est GFR (MDRD) Af Amer 124, Est GFR (MDRD) Non-Af 102, BUN/Creatinine Ratio 9.4 L, Glucose 315 H, Calcium 7.8 L 10/05/20 14:50: Urine Color Yellow, Urine Clarity Clear, Urine pH 5.0, Ur Specific [place] 1.010, Urine Protein Negative, Urine Glucose (UA) 1000 H, Urine Ketones 5 H, Urine Occult Blood 150 H, Urine Nitrite Negative, Urine Bilirubin 1 H, Urine Urobilinogen 8 H, Ur Leukocyte Esterase 25 H, Urine RBC 0-5 SEEN, Urine WBC 0 SEEN, Ur Squamous Epith Cells 0 SEEN, Urine Bacteria 0 SEEN, Urine Mucus 0 SEEN 10/05/20 : S.aureus Protein A PCR NEGATIVE, MRSA (PCR) Negative Current Medications Calcium Carbonate (Calcium Carbonate 500 Mg Tablet) 1,000 mg PO TIDCM [facility] Last Admin: 10/05/20 18:44 Dose: 1,000 mg Documented by: Dextrose (Dextrose 50%-Water 25 Gm/50 Ml Disp.Syrin) 0 gm IV X1 PRN; Protocol PRN Reason: Hypoglycemia Enoxaparin Sodium (Enoxaparin 40 Mg/0.4 Ml Syringe) 40 mg SC DAILY [facility] Gabapentin (Gabapentin 300 Mg Capsule) 300 mg PO BID [facility] Glucagon (Glucagon 1 Mg/Ml Syringe) 1 mg IM .X1 PRN PRN Reason: Hypoglycemia Hydromorphone HCl (Hydromorphone 0.5 Mg/0.5 Ml Syringe) 0.5 - 1 mg IV Q2H PRN PRN PRN Reason: Pain Score 1-10 Sodium Chloride () 1,000 mls @ 100 mls/hr IV .Q10H [facility] Last Admin: 10/05/20 18:26 Dose: 100 mls/hr Documented by: Piperacillin Sod/Tazobactam (Sod 3.375 gm/ Sodium Chloride) 50 mls @ 12.5 mls/hr IV Q8 OPAL Sodium Chloride () 250 mls @ 15 mls/hr IV .[id number] PRN PRN Reason: Saline Flush Sodium Chloride () 250 mls @ 15 mls/hr IV .[id number] PRN PRN Reason: Additional IVPB Infusion Insulin Glargine (Insulin Glargine 100 Units/Ml Pen) 10 units SC QHS OPAL Insulin Human Lispro (Insulin Lispro 100 Unit/Ml Insuln.Pen) 0 unit SC ACHS OPAL; Protocol Ketorolac Tromethamine (Ketorolac 15 Mg/Ml Vial) 15 mg IV Q6H PRN PRN PRN Reason: Pain Score 1-10 Methocarbamol (Methocarbamol 500 Mg Tablet) 500 mg PO QHS OPAL Ondansetron HCl (Ondansetron 4 Mg/2 Ml Vial) 4 mg IV Q8H PRN PRN PRN Reason: NAUSEA Oxycodone HCl (Oxycodone 5 Mg Tablet) 5 - 10 mg PO Q4H PRN PRN PRN Reason: Pain Score 6-10 Sodium Chloride (0.9% Saline Lock 10 Ml Syringe) 10 - 40 ml IV UD PRN PRN Reason: SALINE FLUSH STROKE Vital Signs/Narrative: Vital Signs Temp Pulse Resp BP Pulse Ox 10/05/20 17:55 98.8 F 89 18 151/81 H 94 10/05/20 17:33 99.7 F H 91 16 147/41 H 94 10/05/20 17:31 92 16 136/60 H 94 10/05/20 17:17 84 16 165/87 H 95 10/05/20 17:15 86 16 137/74 H 96 10/05/20 17:11 84 16 156/78 H 94 10/05/20 17:08 97 16 173/86 H 95 10/05/20 17:01 99.6 F H 68 16 165/92 H 96 10/05/20 15:59 147/80 H Medical Necessity - Tobacco Use Smoking Status: Former smoker Assessment/Plan All Active Problems Ulcer of right lower extremity with fat layer exposed (Acute) Perianal abscess (Acute) Cellulitis (Ruled-out) 1. Perianal abscess -Status post I&D 10/05/2020 -Continue with Zosyn, cultures are pending -Pain meds per primary 2. Hyperglycemia/morbid obesity/Soriano -He states that he has been borderline diabetic previously and then this year he gained 60 pounds -With his polydipsia, will check an A1c and place him on 10 units of Lantus overnight as well as sliding scale insulin with Accu-Cheks AC at bedtime -If his A1c comes back elevated he will likely need to be discharged on Metformin or even insulin depending on how high the A1c is -Discussed lifestyle modifications, his BMI is 46.9 -Nothing to do for Soriano other than monitoring, did advise weight loss 3. Chronic back pain -Stable -Continue with his home meds DVT: Lovenox OBSV E&M: [id number] Subsequent observation care L3
[2020-10-05] MEDS: oxyCODONE 5 MG Tablet PO (20:24)
[2020-10-05 20:50] LABS: Hemoglobin A1c 7.4 % (3.8-5.6)
[2020-10-05] MEDS: Insulin Lispro 100 UNIT/ML INSULN.PEN SC (21:48)
[2020-10-05] MEDS: Methocarbamol 500 MG Tablet PO (21:57)
[2020-10-05] MEDS: Gabapentin 300 MG Capsule PO (21:57)
[2020-10-05 22:20] LABS: Bedside Glucose 240 mg/dL (70-110)
[2020-10-06 01:24] VITALS: BP 137/68; PULSE 79; RESP 18; TEMP 37; O2SAT 97
[2020-10-06] MEDS: oxyCODONE 5 MG Tablet PO ×5 (01:26→20:21)
[2020-10-06] MEDS: 0.9% Normal Saline 1,000 ML 100 ML IV (03:02)
[2020-10-06 05:33] VITALS: BP 159/67; PULSE 84; RESP 18; TEMP 37.1; O2SAT 95
[2020-10-06 06:51] LABS: Bedside Glucose 146 mg/dL (70-110)
[2020-10-06] MEDS: Calcium Carbonate 500 MG Tablet 1000 MG PO ×2 (08:05→16:20)
[2020-10-06] MEDS: Ketorolac 15 MG/ML Vial IV ×2 (08:07→16:25)
--- NOTE | 2020-10-06 09:22 | PCM.PN.SRG ---
Patient Problems: Active and Suspected Problems Perianal abscess (Acute) Subjective: Patient is feeling better. - Physical Exam Vitals/I&O's: Vital Signs Temp Pulse Resp BP Pulse Ox 98.7 F 84 18 159/67 H 95 10/06/20 05:33 10/06/20 05:33 10/06/20 05:33 10/06/20 05:33 10/06/20 05:33 Oxygen Delivery Method Room Air Weight: 375 lb Body Mass Index (BMI) 46.8 Finger Stick Blood Glucose 274 Intake and Output for Last 24 Hours 10/04/20 10/05/20 10/06/20 23:59 23:59 23:59 Intake Total 600.25 / 600.25 1666 / 1666 Output Total 750 / 750 900 / 900 Balance -149.75 / -149.75 766 / 766 Microbiology Past 72 Hours 10/05/20 15:33 Mucosa - Nose SARS-CoV-2 Antigen (Rapid) - Final Laboratory Results 10/05/20 12:25: WBC 6.4, RBC 4.48 L, Hgb 13.7, Hct 38.5 L, MCV 85.9, MCH 30.6, MCHC 35.6, RDW Std Deviation 40.9, RDW Coeff of Ramya 13.2, Plt Count 73 L, MPV 11.8, Immature Gran % (Auto) 0.500, Neut % (Auto) 73.0 H, Lymph % (Auto) 13.8 L, [place] % (Auto) 9.7, Eos % (Auto) 2.7, Baso % (Auto) 0.3, Absolute Neuts (auto) 4.6, Absolute Lymphs (auto) 0.88, Nucleated RBC % 0 10/05/20 12:25: Sodium 137, Potassium 3.8, Chloride 106, Carbon Dioxide 26.0, Anion Gap 5, BUN 8, Creatinine 0.86, Estim Creat Clear Calc 128.28, Est GFR (MDRD) Af Amer 124, Est GFR (MDRD) Non-Af 102, BUN/Creatinine Ratio 9.4 L, Glucose 315 H, Calcium 7.8 L 10/05/20 12:25: Hemoglobin A1c 7.4 H 10/05/20 14:50: Urine Color Yellow, Urine Clarity Clear, Urine pH 5.0, Ur Specific [place] 1.010, Urine Protein Negative, Urine Glucose (UA) 1000 H, Urine Ketones 5 H, Urine Occult Blood 150 H, Urine Nitrite Negative, Urine Bilirubin 1 H, Urine Urobilinogen 8 H, Ur Leukocyte Esterase 25 H, Urine RBC 0-5 SEEN, Urine WBC 0 SEEN, Ur Squamous Epith Cells 0 SEEN, Urine Bacteria 0 SEEN, Urine Mucus 0 SEEN 10/05/20 21:46: POC Glucose 240 H 10/05/20 : S.aureus Protein A PCR NEGATIVE, MRSA (PCR) Negative 10/06/20 06:30: POC Glucose 146 H Current Medications Calcium Carbonate (Calcium Carbonate 500 Mg Tablet) 1,000 mg PO TIDCM [facility] Last Admin: 10/06/20 08:05 Dose: 1,000 mg Documented by: Dextrose (Dextrose 50%-Water 25 Gm/50 Ml Disp.Syrin) 0 gm IV X1 PRN; Protocol PRN Reason: Hypoglycemia Enoxaparin Sodium (Enoxaparin 40 Mg/0.4 Ml Syringe) 40 mg SC DAILY [facility] Gabapentin (Gabapentin 300 Mg Capsule) 300 mg PO BID [facility] Last Admin: 10/05/20 21:57 Dose: 300 mg Documented by: Glucagon (Glucagon 1 Mg/Ml Syringe) 1 mg IM .X1 PRN PRN Reason: Hypoglycemia Hydromorphone HCl (Hydromorphone 0.5 Mg/0.5 Ml Syringe) 0.5 - 1 mg IV Q2H PRN PRN PRN Reason: Pain Score 1-10 Sodium Chloride () 1,000 mls @ 100 mls/hr IV .Q10H [facility] Last Admin: 10/06/20 03:02 Dose: 100 mls/hr Documented by: Piperacillin Sod/Tazobactam (Sod 3.375 gm/ Sodium Chloride) 50 mls @ 12.5 mls/hr IV Q8 [facility] Last Admin: 10/06/20 05:35 Dose: 12.5 mls/hr Documented by: Sodium Chloride () 250 mls @ 15 mls/hr IV .[id number] PRN PRN Reason: Saline Flush Last Infusion: 10/06/20 05:35 Dose: 0 mls/hr Documented by: Sodium Chloride () 250 mls @ 15 mls/hr IV .[id number] PRN PRN Reason: Additional IVPB Infusion Insulin Glargine (Insulin Glargine 100 Units/Ml Pen) [facility] Last Admin: 10/05/20 21:47 Dose: 10 u Documented by: Insulin Human Lispro (Insulin Lispro 100 Unit/Ml Insuln.Pen) 0 unit SC [facility]; Protocol Last Admin: 10/06/20 06:33 Dose: Not Given Documented by: Ketorolac Tromethamine (Ketorolac 15 Mg/Ml Vial) 15 mg IV Q6H PRN PRN PRN Reason: Pain Score 1-10 Last Admin: 10/06/20 08:07 Dose: 15 mg Documented by: Methocarbamol (Methocarbamol 500 Mg Tablet) 500 mg PO QHS [facility] Last Admin: 10/05/20 21:57 Dose: 500 mg Documented by: Ondansetron HCl (Ondansetron 4 Mg/2 Ml Vial) 4 mg IV Q8H PRN PRN PRN Reason: NAUSEA Oxycodone HCl (Oxycodone 5 Mg Tablet) 5 - 10 mg PO Q4H PRN PRN PRN Reason: Pain Score 6-10 Last Admin: 10/06/20 05:35 Dose: 10 mg Documented by: Sodium Chloride (0.9% Saline Lock 10 Ml Syringe) 10 - 40 ml IV UD PRN PRN Reason: SALINE FLUSH Medical Necessity - Tobacco Use Smoking Status: Former smoker Assessment/Plan All Active Problems Ulcer of right lower extremity with fat layer exposed (Acute) Perianal abscess (Acute) Cellulitis (Ruled-out) This point will have the come in and be taught how to do dressing changes. Patient will be following up with the wound center.
[2020-10-06 09:30] VITALS: BP 142/83; PULSE 69; RESP 18; TEMP 36.6; O2SAT 94
--- NOTE | 2020-10-06 09:33 | PCM.DC.GS ---
Discharge Diet: Light diet - advance as tolerated - If you have questions about your diet instructions, please talk to your doctor. Discharge Activity: May Not Drive - for 1 week or while taking narcotic pain medicine. May shower in (days): 1 Lifting Restrictions: 10 pounds Call your doctor if your incision/area has: Continuous Slow Oozing, Sudden Increased Bleeding, Increased Pain/ Swelling, Increased Redness, Foul Smelling Discharge Call your doctor if you observe: Fever of 101 or Higher Suture Line Care: Avoid Pulling/Pushing, Avoid Pinching/Bending Additional Dressing/Incision Instructions:: Wet-to-dry dressing changes twice daily. Prior to dressing changes soak in Epson salts bath for at least 30 minutes. Put 2 cups of Epson salts and is hot is water is can tolerated further soaking. Additional Instructions: Please call and make an appointment with the wound center. Allergies/Adverse Reactions: Allergies No Known Allergies Allergy (Verified 10/05/20 12:04) Medications to take at Discharge Methocarbamol [Robaxin] 500 mg PO QHS 01/07/17 Gabapentin [Neurontin] 300 mg PO BID 02/11/19 Oxycodone [Oxyir] 5 mg PO BID 06/25/19 Gauze Bandage [Kerlix] 1 ea TP BID #10 bandage 10/06/20 Oxycodone [Oxyir] 10 mg PO Q6H PRN PRN 5 Days #20 tablet 10/06/20 Sodium Cl 0.9PC Irrig. Soln [Ns For Irrigation] 1,000 ml IR BID 10 Days #3 irrig.soln 10/06/20 The following prescriptions were given: Gauze Bandage [Kerlix] 1 ea TP BID #10 bandage Transmission Status: Pending to [facility] Sodium Cl 0.9PC Irrig. Soln [Ns For Irrigation] 1,000 ml IR BID 10 Days #3 irrig.soln Transmission Status: Pending to [facility] Oxycodone [Oxyir] 10 mg PO Q6H PRN PRN 5 Days #20 tablet PRN Reason: Pain 1-10 Or Fever Transmission Status: Sent to [facility] Primary Care Physician: Joselyn Cummings DO [Primary Care Provider] - Test Results: Test results from this visit will be discussed in further detail at your follow-up appointment, if applicable. Please Follow Up With: Odilon Espinal MD - [phone] When: Call to make an appointment to be seen in about 10 days.
--- NOTE | 2020-10-06 09:36 | PCM.DC ---
- Discharge Diagnoses Current Active Problems: Current Active and Chronic Problems Perianal abscess (Acute) You will use the following diet at home:: Calorie/Carbohydrate Controlled (specify 1200, 1400, etc) - 1800 farrah Your food should be the consistency of: Regular Your liquids should be the consistency of: Regular/Thin Discharge Activity: Return to Normal Activity Weight Bearing Status: Full weight bearing Additional Instructions: Change packing twice daily after epson salt bath for 20 min Follow up with the [facility]-schedule for next week [phone], you will need follow up with Dr. Espinal after you go to the wound center Allergies/Adverse Reactions: Allergies No Known Allergies Allergy (Verified 10/05/20 12:04) Medications to take at Discharge Methocarbamol [Robaxin] 500 mg PO QHS 01/07/17 Gabapentin [Neurontin] 300 mg PO BID 02/11/19 Gauze Bandage [Kerlix] 1 ea TP BID #10 bandage 10/06/20 Oxycodone [Oxyir] 10 mg PO Q6H PRN PRN 5 Days #20 tab 10/06/20 Sodium Cl 0.9PC Irrig. Soln [Ns For Irrigation] 1,000 ml IR BID 10 Days #3 irrig.soln 10/06/20 metFORMIN HCl [Glucophage] 850 mg PO BIDCM #60 tab 10/06/20 The following prescriptions were given: metFORMIN HCl [Glucophage] 850 mg PO BIDCM #60 tab Transmission Status: Pending to [facility] Gauze Bandage [Kerlix] 1 ea TP BID #10 bandage Transmission Status: Pending to [facility] Sodium Cl 0.9PC Irrig. Soln [Ns For Irrigation] 1,000 ml IR BID 10 Days #3 irrig.soln Transmission Status: Pending to [facility] Oxycodone [Oxyir] 10 mg PO Q6H PRN PRN 5 Days #20 tab PRN Reason: Pain 1-10 Or Fever Transmission Status: Received by [facility] Primary Care Physician: Joselyn Cummings DO [Primary Care Provider] - Test Results: Test results from this visit will be discussed in further detail at your follow-up appointment, if applicable.
[2020-10-06] MEDS: Enoxaparin 40 MG/0.4 ML Syringe SC (09:51)
[2020-10-06] MEDS: Gabapentin 300 MG Capsule PO ×2 (09:52→22:28)
--- NOTE | 2020-10-06 10:45 | CASEMGMT ---
Per Teddy note, pt's to be taught how to complete twice daily dressing changes prior to discharge. Pt to be started on PO DM med and per Dr. Julio, will advise pt to get glucometer at [facility]. Richar DEL CID CM
[2020-10-06] MEDS: HYDROmorphone 0.5 MG/0.5 ML SYRINGE IV ×2 (10:52→22:34)
[2020-10-06] MEDS: 0.9% Saline Lock 10 ML Syringe IV ×2 (10:53→22:33)
--- NOTE | 2020-10-06 11:42 | PCM.PROGNOTE ---
Patient Problems: Active and Suspected Problems Perianal abscess (Acute) Subjective: Patient was seen and examined today, I discussed his medical status with Dr. Espinal today, the plan was to discharge the patient home but the was unable to change the patient's packing in his wound and so his discharge was not placed. I have decided today to change him to oral medications for blood sugar control and continue fingerstick blood sugars with sliding scale insulin coverage. - Physical Exam Vitals/I&O's: Vital Signs Temp Pulse Resp BP Pulse Ox 97.8 F 69 18 142/83 H 94 10/06/20 09:30 10/06/20 09:30 10/06/20 09:30 10/06/20 09:30 10/06/20 09:30 Oxygen Delivery Method Room Air Weight: 170.097 kg Body Mass Index (BMI) 46.8 Finger Stick Blood Glucose 274 Intake and Output for Last 24 Hours 10/04/20 10/05/20 10/06/20 23:59 23:59 23:59 Intake Total 600.25 / 600.25 1716 / 1716 Output Total 750 / 750 900 / 900 Balance -149.75 / -149.75 816 / 816 General: Alert, Oriented x3, Cooperative, No apparent distress, Well developed, Well nourished HEENT: Atraumatic, PERRLA, EOMI, Normocephalic Oral: Moist Mucosa Neck: Supple, No JVD, Trachea Midline, Thyroid Normal Size and Texture Lungs: Clear to auscultation, Normal air movement, No rhonchi, No wheeze, No rales Cardiovascular: Regular rate, Regular Rhythm, Normal S1, Normal S2, No murmurs, PMI Normal, No rub noted, No Gallop Abdomen: Bowel Sounds Present, Soft, Non Tender, Non-Distended, Obese Extremities: No clubbing, No cyanosis, No edema, Capillary Refill Less than 3 Seconds Skin: No rashes Musculoskeletal: No Tenderness to Palpation of Joints or Extremities Neurological: Cranial nerves II-XII grossly intact, Neuro grossly intact, Sensory exam intact to light touch and pain, Coordination normal Psych/Mental Status: Normal Affect, Appropriate, Alert and oriented to time, place, person, mood and affect Microbiology Past 72 Hours 10/05/20 Unknown Aspirate - Buttock Gram Stain - Final 10/05/20 15:33 Mucosa - Nose SARS-CoV-2 Antigen (Rapid) - Final Laboratory Results 10/05/20 12:25: WBC 6.4, RBC 4.48 L, Hgb 13.7, Hct 38.5 L, MCV 85.9, MCH 30.6, MCHC 35.6, RDW Std Deviation 40.9, RDW Coeff of Ramya 13.2, Plt Count 73 L, MPV 11.8, Immature Gran % (Auto) 0.500, Neut % (Auto) 73.0 H, Lymph % (Auto) 13.8 L, [place] % (Auto) 9.7, Eos % (Auto) 2.7, Baso % (Auto) 0.3, Absolute Neuts (auto) 4.6, Absolute Lymphs (auto) 0.88, Nucleated RBC % 0 10/05/20 12:25: Sodium 137, Potassium 3.8, Chloride 106, Carbon Dioxide 26.0, Anion Gap 5, BUN 8, Creatinine 0.86, Estim Creat Clear Calc 128.28, Est GFR (MDRD) Af Amer 124, Est GFR (MDRD) Non-Af 102, BUN/Creatinine Ratio 9.4 L, Glucose 315 H, Calcium 7.8 L 10/05/20 12:25: Hemoglobin A1c 7.4 H 10/05/20 14:50: Urine Color Yellow, Urine Clarity Clear, Urine pH 5.0, Ur Specific [place] 1.010, Urine Protein Negative, Urine Glucose (UA) 1000 H, Urine Ketones 5 H, Urine Occult Blood 150 H, Urine Nitrite Negative, Urine Bilirubin 1 H, Urine Urobilinogen 8 H, Ur Leukocyte Esterase 25 H, Urine RBC 0-5 SEEN, Urine WBC 0 SEEN, Ur Squamous Epith Cells 0 SEEN, Urine Bacteria 0 SEEN, Urine Mucus 0 SEEN 10/05/20 21:46: POC Glucose 240 H 10/05/20 : S.aureus Protein A PCR NEGATIVE, MRSA (PCR) Negative 10/06/20 06:30: POC Glucose 146 H Current Medications Calcium Carbonate (Calcium Carbonate 500 Mg Tablet) 1,000 mg PO TIDCM [facility] Last Admin: 10/06/20 08:05 Dose: 1,000 mg Documented by: Dextrose (Dextrose 50%-Water 25 Gm/50 Ml Disp.Syrin) 0 gm IV X1 PRN; Protocol PRN Reason: Hypoglycemia Enoxaparin Sodium (Enoxaparin 40 Mg/0.4 Ml Syringe) 40 mg SC DAILY [facility] Last Admin: 10/06/20 09:51 Dose: 40 mg Documented by: Gabapentin (Gabapentin 300 Mg Capsule) 300 mg PO BID [facility] Last Admin: 10/06/20 09:52 Dose: 300 mg Documented by: Glucagon (Glucagon 1 Mg/Ml Syringe) 1 mg IM .X1 PRN PRN Reason: Hypoglycemia Hydromorphone HCl (Hydromorphone 0.5 Mg/0.5 Ml Syringe) 0.5 - 1 mg IV Q2H PRN PRN PRN Reason: Pain Score 1-10 Last Admin: 10/06/20 10:52 Dose: 0.5 mg Documented by: Sodium Chloride () 1,000 mls @ 100 mls/hr IV .Q10H [facility] Last Admin: 10/06/20 03:02 Dose: 100 mls/hr Documented by: Piperacillin Sod/Tazobactam (Sod 3.375 gm/ Sodium Chloride) 50 mls @ 12.5 mls/hr IV Q8 [facility] Last Infusion: 10/06/20 10:00 Dose: Infused Documented by: Sodium Chloride () 250 mls @ 15 mls/hr IV .[id number] PRN PRN Reason: Saline Flush Last Infusion: 10/06/20 05:35 Dose: 0 mls/hr Documented by: Sodium Chloride () 250 mls @ 15 mls/hr IV .[id number] PRN PRN Reason: Additional IVPB Infusion Insulin Glargine (Insulin Glargine 100 Units/Ml Pen) 10 units SC QHS [facility] Last Admin: 10/05/20 21:47 Dose: 10 u Documented by: Insulin Human Lispro (Insulin Lispro 100 Unit/Ml Insuln.Pen) 0 unit SC [facility]; Protocol Last Admin: 10/06/20 06:33 Dose: Not Given Documented by: Ketorolac Tromethamine (Ketorolac 15 Mg/Ml Vial) 15 mg IV Q6H PRN PRN PRN Reason: Pain Score 1-10 Last Admin: 10/06/20 08:07 Dose: 15 mg Documented by: Methocarbamol (Methocarbamol 500 Mg Tablet) 500 mg PO QHS [facility] Last Admin: 10/05/20 21:57 Dose: 500 mg Documented by: Ondansetron HCl (Ondansetron 4 Mg/2 Ml Vial) 4 mg IV Q8H PRN PRN PRN Reason: NAUSEA Oxycodone HCl (Oxycodone 5 Mg Tablet) 5 - 10 mg PO Q4H PRN PRN PRN Reason: Pain Score 6-10 Last Admin: 10/06/20 09:51 Dose: 10 mg Documented by: Sodium Chloride (0.9% Saline Lock 10 Ml Syringe) 10 - 40 ml IV UD PRN PRN Reason: SALINE FLUSH Last Admin: 10/06/20 10:53 Dose: 10 ml Documented by: Medical Necessity - Tobacco Use Smoking Status: Former smoker Assessment/Plan All Active Problems Ulcer of right lower extremity with fat layer exposed (Acute) Perianal abscess (Acute) Cellulitis (Ruled-out) #1 type 2 diabetes-I will place the patient on Metformin 850 mg twice a day, he will remain on sliding scale insulin #2 morbid obesity #3 status post perianal abscess drainage postop day #1 #4 liver cirrhosis secondary to Soriano #5 spinal stenosis Inpatient E&M: [id number] [facility] Hosp L2
[2020-10-06] MEDS: Insulin Lispro 100 UNIT/ML INSULN.PEN SC ×3 (11:46→22:26)
[2020-10-06 11:50] LABS: Bedside Glucose 268 mg/dL (70-110)
[2020-10-06] MEDS: metFORMIN HCl 850 MG Tablet PO ×2 (12:09→16:20)
[2020-10-06 14:16] VITALS: PULSE 66
[2020-10-06] MEDS: Amox/Clavulanate 500 MG Tablet PO (16:19)
[2020-10-06 17:00] LABS: Bedside Glucose 171 mg/dL (70-110)
[2020-10-06 22:20] VITALS: BP 147/58; PULSE 82; RESP 18; TEMP 36.8; O2SAT 97
[2020-10-06] MEDS: Methocarbamol 500 MG Tablet PO (22:28)
[2020-10-06 22:56] LABS: Bedside Glucose 161 mg/dL (70-110)
[2020-10-07] VITALS (8 sets, daily range): BP systolic 138–164; BP diastolic 65–89; PULSE 76–81; RESP 18–20; TEMP 36.7–36.8; O2SAT 95–98
[2020-10-07] MEDS: Ketorolac 15 MG/ML Vial IV ×2 (00:19→08:25)
[2020-10-07] MEDS: 0.9% Saline Lock 10 ML Syringe IV ×4 (00:19→22:14)
[2020-10-07] MEDS: oxyCODONE 5 MG Tablet PO ×4 (02:20→20:30)
[2020-10-07] MEDS: Insulin Lispro 100 UNIT/ML INSULN.PEN SC ×3 (06:34→16:24)
[2020-10-07 06:40] LABS: Bedside Glucose 167 mg/dL (70-110)
[2020-10-07] MEDS: Calcium Carbonate 500 MG Tablet 1000 MG PO ×3 (08:26→16:17)
[2020-10-07] MEDS: metFORMIN HCl 850 MG Tablet PO ×2 (08:27→16:17)
[2020-10-07] MEDS: Enoxaparin 40 MG/0.4 ML Syringe SC (08:27)
[2020-10-07] MEDS: Amox/Clavulanate 500 MG Tablet PO ×3 (08:27→16:17)
[2020-10-07] MEDS: Gabapentin 300 MG Capsule PO ×2 (08:28→22:22)
--- NOTE | 2020-10-07 09:46 | PN.SURG_ITS ---
Patient Problems: Active and Suspected Problems Perianal abscess (Acute) Subjective: Pain still an issue with dressing changes needing IV pain medication. Objective: No cellulitis around incision sites dressing is intact. - Physical Exam Vitals/I&O's: Vital Signs Temp Pulse Resp BP Pulse Ox 98.1 F 80 18 154/87 H 96 10/07/20 08:15 10/07/20 08:39 10/07/20 08:15 10/07/20 08:15 10/07/20 08:15 Oxygen Delivery Method Room Air Weight: 375 lb Body Mass Index (BMI) 46.8 Finger Stick Blood Glucose 274 Intake and Output for Last 24 Hours 10/05/20 10/06/20 10/07/20 23:59 23:59 23:59 Intake Total 600.25 / 600.25 4312.67 / 4312.67 600 / 600 Output Total 750 / 750 2400 / 2400 Balance -149.75 / -149.75 1912.67 / 1912.67 600 / 600 Microbiology Past 72 Hours 10/05/20 14:50 Urine, Clean Catch Urine Culture - Preliminary Culture exhibits no growth. 10/05/20 Unknown Aspirate - Buttock Gram Stain - Final 10/05/20 15:33 Mucosa - Nose SARS-CoV-2 Antigen (Rapid) - Final Laboratory Results 10/06/20 11:41: POC Glucose 268 H 10/06/20 16:24: POC Glucose 171 H 10/06/20 22:25: POC Glucose 161 H 10/07/20 06:34: POC Glucose 167 H Current Medications Amoxicillin/Clavulanate Potassium (Amox/Clavulanate 500 Mg Tablet) 500 mg PO TIDCM [facility] Last Admin: 10/07/20 08:27 Dose: 500 mg Documented by: Calcium Carbonate (Calcium Carbonate 500 Mg Tablet) 1,000 mg PO TIDCM [facility] Last Admin: 10/07/20 08:26 Dose: 1,000 mg Documented by: Dextrose (Dextrose 50%-Water 25 Gm/50 Ml Disp.Syrin) 0 gm IV X1 PRN; Protocol PRN Reason: Hypoglycemia Enoxaparin Sodium (Enoxaparin 40 Mg/0.4 Ml Syringe) 40 mg SC DAILY [facility] Last Admin: 10/07/20 08:27 Dose: 40 mg Documented by: Gabapentin (Gabapentin 300 Mg Capsule) 300 mg PO BID [facility] Last Admin: 10/07/20 08:28 Dose: 300 mg Documented by: Glucagon (Glucagon 1 Mg/Ml Syringe) 1 mg IM .X1 PRN PRN Reason: Hypoglycemia Hydromorphone HCl (Hydromorphone 0.5 Mg/0.5 Ml Syringe) 0.5 - 1 mg IV Q2H PRN PRN PRN Reason: Pain Score 1-10 Last Admin: 10/06/20 22:34 Dose: 1 mg Documented by: Sodium Chloride () 250 mls @ 15 mls/hr IV .[id number] PRN PRN Reason: Saline Flush Last Infusion: 10/06/20 05:35 Dose: 0 mls/hr Documented by: Sodium Chloride () 250 mls @ 15 mls/hr IV .[id number] PRN PRN Reason: Additional IVPB Infusion Insulin Human Lispro (Insulin Lispro 100 Unit/Ml Insuln.Pen) 0 unit SC [facility]; Protocol Last Admin: 10/07/20 06:34 Dose: 2 u Documented by: Ketorolac Tromethamine (Ketorolac 15 Mg/Ml Vial) 15 mg IV Q6H PRN PRN PRN Reason: Pain Score 1-10 Last Admin: 10/07/20 08:25 Dose: 15 mg Documented by: Metformin HCl ([facility] Hcl 850 Mg Tablet) [facility] Last Admin: 10/07/20 08:27 Dose: 850 mg Documented by: Methocarbamol (Methocarbamol 500 Mg Tablet) 500 mg PO QHS [facility] Last Admin: 10/06/20 22:28 Dose: 500 mg Documented by: Ondansetron HCl (Ondansetron 4 Mg/2 Ml Vial) 4 mg IV Q8H PRN PRN PRN Reason: NAUSEA Oxycodone HCl (Oxycodone 5 Mg Tablet) 5 - 10 mg PO Q4H PRN PRN PRN Reason: Pain Score 6-10 Last Admin: 10/07/20 08:23 Dose: 10 mg Documented by: Sodium Chloride (0.9% Saline Lock 10 Ml Syringe) 10 - 40 ml IV UD PRN PRN Reason: SALINE FLUSH Last Admin: 10/07/20 08:26 Dose: 10 ml Documented by: Medical Necessity - Tobacco Use Smoking Status: Former smoker Assessment/Plan All Active Problems Ulcer of right lower extremity with fat layer exposed (Acute) Perianal abscess (Acute) Cellulitis (Ruled-out) Hopefully we will get the pain under control today and possibly be able to discharge tomorrow.
[2020-10-07] MEDS: HYDROmorphone 0.5 MG/0.5 ML SYRINGE IV ×3 (10:38→22:14)
[2020-10-07 11:40] LABS: Bedside Glucose 209 mg/dL (70-110)
--- NOTE | 2020-10-07 15:15 | PCM.PROGNOTE ---
Patient Problems: Active and Suspected Problems Perianal abscess (Acute) Subjective: Patient was seen and examined today, he still having incisional pain in his perirectal area. Patient's blood sugar is still not under adequate control, I will continue with present sliding scale insulin and Glucophage for now however and reevaluate. - Physical Exam Vitals/I&O's: Vital Signs Temp Pulse Resp BP Pulse Ox 98.1 F 80 18 154/87 H 96 10/07/20 08:15 10/07/20 12:37 10/07/20 08:15 10/07/20 08:15 10/07/20 08:15 Oxygen Delivery Method Room Air Weight: 170.1 kg Body Mass Index (BMI) 46.8 Finger Stick Blood Glucose 274 Intake and Output for Last 24 Hours 10/05/20 10/06/20 10/07/20 23:59 23:59 23:59 Intake Total 600.25 / 600.25 4312.67 / 4312.67 1100 / 1100 Output Total 750 / 750 2400 / 2400 Balance -149.75 / -149.75 1912.67 / 1912.67 1100 / 1100 General: Alert, Oriented x3, Cooperative, No apparent distress, Well developed, Well nourished HEENT: Atraumatic, PERRLA, EOMI, Normocephalic Oral: Moist Mucosa Neck: Supple, No JVD, Trachea Midline, Thyroid Normal Size and Texture Lungs: Clear to auscultation, Normal air movement, No rhonchi, No wheeze, No rales Cardiovascular: Regular rate, Regular Rhythm, Normal S1, Normal S2, No murmurs, PMI Normal, No rub noted, No Gallop Abdomen: Bowel Sounds Present, Soft, Non Tender, Non-Distended, Obese Extremities: No clubbing, No cyanosis, No edema, Capillary Refill Less than 3 Seconds Skin: No rashes Musculoskeletal: No Tenderness to Palpation of Joints or Extremities Neurological: Cranial nerves II-XII grossly intact, Neuro grossly intact, Sensory exam intact to light touch and pain Psych/Mental Status: Normal Affect, Appropriate, Alert and oriented to time, place, person, mood and affect Microbiology Past 72 Hours 10/05/20 Unknown Aspirate - Buttock Gram Stain - Final 10/05/20 Unknown Aspirate - Buttock Wound Culture - Preliminary Gram positive organism 10/05/20 14:50 Urine, Clean Catch Urine Culture - Preliminary Culture exhibits no growth. 10/05/20 15:33 Mucosa - Nose SARS-CoV-2 Antigen (Rapid) - Final Laboratory Results 10/06/20 16:24: POC Glucose 171 H 10/06/20 22:25: POC Glucose 161 H 10/07/20 06:34: POC Glucose 167 H 10/07/20 11:35: POC Glucose 209 H Current Medications Amoxicillin/Clavulanate Potassium (Amox/Clavulanate 500 Mg Tablet) 500 mg PO TIDCM [facility] Last Admin: 10/07/20 12:03 Dose: 500 mg Documented by: Calcium Carbonate (Calcium Carbonate 500 Mg Tablet) 1,000 mg PO TIDCM [facility] Last Admin: 10/07/20 12:03 Dose: 1,000 mg Documented by: Dextrose (Dextrose 50%-Water 25 Gm/50 Ml Disp.Syrin) 0 gm IV X1 PRN; Protocol PRN Reason: Hypoglycemia Enoxaparin Sodium (Enoxaparin 40 Mg/0.4 Ml Syringe) 40 mg SC DAILY [facility] Last Admin: 10/07/20 08:27 Dose: 40 mg Documented by: Gabapentin (Gabapentin 300 Mg Capsule) 300 mg PO BID [facility] Last Admin: 10/07/20 08:28 Dose: 300 mg Documented by: Glucagon (Glucagon 1 Mg/Ml Syringe) 1 mg IM .X1 PRN PRN Reason: Hypoglycemia Hydromorphone HCl (Hydromorphone 0.5 Mg/0.5 Ml Syringe) 0.5 - 1 mg IV Q2H PRN PRN PRN Reason: Pain Score 1-10 Last Admin: 10/07/20 10:55 Dose: 0.5 mg Documented by: Sodium Chloride () 250 mls @ 15 mls/hr IV .[id number] PRN PRN Reason: Saline Flush Last Infusion: 10/06/20 05:35 Dose: 0 mls/hr Documented by: Sodium Chloride () 250 mls @ 15 mls/hr IV .[id number] PRN PRN Reason: Additional IVPB Infusion Insulin Human Lispro (Insulin Lispro 100 Unit/Ml Insuln.Pen) 0 unit SC ACHS [facility]; Protocol Last Admin: 10/07/20 12:02 Dose: 4 u Documented by: Ketorolac Tromethamine (Ketorolac 15 Mg/Ml Vial) 15 mg IV Q6H PRN PRN PRN Reason: Pain Score 1-10 Last Admin: 10/07/20 08:25 Dose: 15 mg Documented by: Metformin HCl (Metformin Hcl 850 Mg Tablet) 850 mg PO BIDCM [facility] Last Admin: 10/07/20 08:27 Dose: 850 mg Documented by: Methocarbamol (Methocarbamol 500 Mg Tablet) 500 mg PO QHS [facility] Last Admin: 10/06/20 22:28 Dose: 500 mg Documented by: Ondansetron HCl (Ondansetron 4 Mg/2 Ml Vial) 4 mg IV Q8H PRN PRN PRN Reason: NAUSEA Oxycodone HCl (Oxycodone 5 Mg Tablet) 5 - 10 mg PO Q4H PRN PRN PRN Reason: Pain Score 6-10 Last Admin: 10/07/20 08:23 Dose: 10 mg Documented by: Polyethylene Glycol (Polyethylene Glycol 3350 17 Gm Packet) 17 gm PO DAILY [facility] Sodium Chloride (0.9% Saline Lock 10 Ml Syringe) 10 - 40 ml IV UD PRN PRN Reason: SALINE FLUSH Last Admin: 10/07/20 08:26 Dose: 10 ml Documented by: Medical Necessity - Tobacco Use Smoking Status: Former smoker Assessment/Plan All Active Problems Ulcer of right lower extremity with fat layer exposed (Acute) Perianal abscess (Acute) Cellulitis (Ruled-out) #1 type 2 diabetes-patient will remain on Metformin and sliding scale insulin #2 morbid obesity #3 status post perianal abscess drainage postop day #2 #4 liver cirrhosis secondary to Soriano #5 spinal stenosis Inpatient E&M: [id number] [facility] Hosp L2
[2020-10-07 16:35] LABS: Bedside Glucose 195 mg/dL (70-110)
[2020-10-07] MEDS: Polyethylene Glycol 3350 17 GM PACKET PO (17:38)
[2020-10-07] MEDS: Methocarbamol 500 MG Tablet PO (22:22)
[2020-10-08 00:06] LABS: Bedside Glucose 128 mg/dL (70-110)
[2020-10-08] MEDS: oxyCODONE 5 MG Tablet PO ×4 (00:53→16:03)
[2020-10-08 06:14] VITALS: BP 143/66; PULSE 88; RESP 18; TEMP 36.8; O2SAT 95
[2020-10-08 06:56] LABS: Bedside Glucose 102 mg/dL (70-110)
[2020-10-08] MEDS: Amox/Clavulanate 500 MG Tablet PO ×2 (08:43→11:58)
[2020-10-08] MEDS: Calcium Carbonate 500 MG Tablet 1000 MG PO ×2 (08:44→11:58)
[2020-10-08] MEDS: Enoxaparin 40 MG/0.4 ML Syringe SC (08:44)
[2020-10-08] MEDS: metFORMIN HCl 850 MG Tablet PO (08:44)
[2020-10-08] MEDS: Gabapentin 300 MG Capsule PO (08:45)
--- NOTE | 2020-10-08 09:50 | PN.SURG_ITS ---
Patient Problems: Active and Suspected Problems Perianal abscess (Acute) Subjective: Patient evaluated resting comfortably in bed. He notes pain is much more tolerable. He states his is unable to perform dressing changes. Patient notes he has been to the wound center before. - Physical Exam Vitals/I&O's: Vital Signs Temp Pulse Resp BP Pulse Ox 98.3 F 88 18 143/66 H 95 10/08/20 06:14 10/08/20 06:14 10/08/20 06:14 10/08/20 06:14 10/08/20 06:14 Oxygen Delivery Method Room Air Weight: 375 lb 0.101 oz Body Mass Index (BMI) 46.8 Finger Stick Blood Glucose 274 Intake and Output for Last 24 Hours 10/06/20 10/07/20 10/08/20 23:59 23:59 23:59 Intake Total 4312.67 / 4312.67 2300 / 2300 400 / 400 Output Total 2400 / 2400 Balance 1912.67 / 1912.67 2300 / 2300 400 / 400 General: Alert, Oriented x3, Cooperative Skin: - - Moderate sized perianal wound with packing. Small amount of drainage noted on ABD Microbiology Past 72 Hours 10/05/20 Unknown Aspirate - Buttock Gram Stain - Final 10/05/20 Unknown Aspirate - Buttock Wound Culture - Preliminary Gram positive organism 10/05/20 Unknown Aspirate - Buttock Anaerobic Culture - Preliminary Checking for anaerobes, further studies to follow. 10/05/20 14:50 Urine, Clean Catch Urine Culture - Final Culture exhibits no growth. 10/05/20 15:33 Mucosa - Nose SARS-CoV-2 Antigen (Rapid) - Final Laboratory Results 10/07/20 11:35: POC Glucose 209 H 10/07/20 16:23: POC Glucose 195 H 10/07/20 22:19: POC Glucose 128 H 10/08/20 06:39: POC Glucose 102 Current Medications Amoxicillin/Clavulanate Potassium (Amox/Clavulanate 500 Mg Tablet) 500 mg PO TIDCM [facility] Last Admin: 10/08/20 08:43 Dose: 500 mg Documented by: Calcium Carbonate (Calcium Carbonate 500 Mg Tablet) 1,000 mg PO TIDCM [facility] Last Admin: 10/08/20 08:44 Dose: 1,000 mg Documented by: Dextrose (Dextrose 50%-Water 25 Gm/50 Ml Disp.Syrin) 0 gm IV X1 PRN; Protocol PRN Reason: Hypoglycemia Enoxaparin Sodium (Enoxaparin 40 Mg/0.4 Ml Syringe) 40 mg SC DAILY [facility] Last Admin: 10/08/20 08:44 Dose: 40 mg Documented by: Gabapentin (Gabapentin 300 Mg Capsule) 300 mg PO BID [facility] Last Admin: 10/08/20 08:45 Dose: 300 mg Documented by: Glucagon (Glucagon 1 Mg/Ml Syringe) 1 mg IM .X1 PRN PRN Reason: Hypoglycemia Hydromorphone HCl (Hydromorphone 0.5 Mg/0.5 Ml Syringe) 0.5 - 1 mg IV Q2H PRN PRN PRN Reason: Pain Score 1-10 Last Admin: 10/07/20 22:14 Dose: 1 mg Documented by: Sodium Chloride () 250 mls @ 15 mls/hr IV .[id number] PRN PRN Reason: Saline Flush Last Infusion: 10/08/20 08:05 Dose: Infused Documented by: Sodium Chloride () 250 mls @ 15 mls/hr IV .[id number] PRN PRN Reason: Additional IVPB Infusion Insulin Human Lispro (Insulin Lispro 100 Unit/Ml Insuln.Pen) 0 unit SC ACHS [facility]; Protocol Last Admin: 10/08/20 06:41 Dose: Not Given Documented by: Ketorolac Tromethamine (Ketorolac 15 Mg/Ml Vial) 15 mg IV Q6H PRN PRN PRN Reason: Pain Score 1-10 Last Admin: 10/07/20 08:25 Dose: 15 mg Documented by: Metformin HCl (Met[facility] Hcl 850 Mg Tablet) [facility] Last Admin: 10/08/20 08:44 Dose: 850 mg Documented by: Methocarbamol (Methocarbamol 500 Mg Tablet) 500 mg PO QHS [facility] Last Admin: 10/07/20 22:22 Dose: 500 mg Documented by: Ondansetron HCl (Ondansetron 4 Mg/2 Ml Vial) 4 mg IV Q8H PRN PRN PRN Reason: NAUSEA Oxycodone HCl (Oxycodone 5 Mg Tablet) 5 - 10 mg PO Q4H PRN PRN PRN Reason: Pain Score 6-10 Last Admin: 10/08/20 07:35 Dose: 10 mg Documented by: Polyethylene Glycol (Polyethylene Glycol 3350 17 Gm Packet) 17 gm PO DAILY [facility] Last Admin: 10/08/20 08:49 Dose: Not Given Documented by: Sodium Chloride (0.9% Saline Lock 10 Ml Syringe) 10 - 40 ml IV UD PRN PRN Reason: SALINE FLUSH Last Admin: 10/07/20 22:14 Dose: 10 ml Documented by: Medical Necessity - Tobacco Use Smoking Status: Former smoker Assessment/Plan All Active Problems Ulcer of right lower extremity with fat layer exposed (Acute) Perianal abscess (Acute) Cellulitis (Ruled-out) I am following this patient in conjunction with Dr. Crawford in Dr. Espinal's absence. S/p I&D and wound debridement of perianal abscess Wound vac is not appropriate for this patient Patient will need dressing changes daily Recommend wound center versus our office, however he will need someone to change dressing on the weekend. Hopefully can assist with changes If not, patient may need fdc placement Continue on Augmentin for 8 more days Ready for discharge today Inpatient E&M: [id number] [facility] Hosp L1 - No charge
[2020-10-08 10:30] VITALS: BP 168/63; PULSE 85; RESP 16; TEMP 36.9; O2SAT 94
[2020-10-08] MEDS: HYDROmorphone 0.5 MG/0.5 ML SYRINGE IV (10:33)
[2020-10-08] MEDS: 0.9% Saline Lock 10 ML Syringe IV (10:36)
--- NOTE | 2020-10-08 10:54 | NURSING ---
wound photo: travon anal
[2020-10-08] MEDS: Insulin Lispro 100 UNIT/ML INSULN.PEN SC (11:58)
[2020-10-08 12:16] LABS: Bedside Glucose 201 mg/dL (70-110)
--- NOTE | 2020-10-08 14:14 | CASEMGMT ---
MARIA EUGENIA BERMUDEZ NOTE: Per Danette SET UP MECH[employer]SEM[employer] MACHINE, for Dr Espinal, dressing changes can be QD instead of BID. Attempt to teach pt's how to do dressing changes has been made, but she is unable to tolerate this task. Pt's brother girlfriend, Rosanne, is an SET UP MECH[employer] MACHINE and may be available to do them, but pt would prefer other options be explored first. Pt interested in HHC for daily dressing changes. Pt has [employer]. [facility], [facility]'s insurance requires pt to be homebound. Pt has been up ad dary in room w/no DME and is not homebound, so therefore insurance would not cover for HHC. Pt/ made aware. Call placed to [facility] to inquire if they are able to schedule daily dressing changes. MARIA EUGENIA BERMUDEZ left VM with Warren clinical nurse lunch counter manager @ [facility], this AM but have not received call back. Attempts to reach W[facility] clinic has been made several more times today with no results. Per MARIA EUGENIA Hardwick, she has made appt for pt to go to Dr Espinal's office tomorrow @ 0930. Pt to schedule f/u appts. MARIA EUGENIA BERMUDEZ and Mulu DEL CID, met with pt and in room. They were made aware of appt scheduled @ Dr Espinal's office and they are to schedule additonal daily appts with them. They are aware the office is not open this Thu (New Year's) or on the weekends. They will arrange to have Rosanne do daily dressing changes on the days Dr Espinal's office is not open. They deny having any further discharge planning needs/questions. Will obtain script for dressing supplies and give to pt/ when available. Claus FERRELL RN, CM
--- NOTE | 2020-10-08 14:42 | PCM.DC.GS ---
Discharge Diet: Light diet - advance as tolerated - If you have questions about your diet instructions, please talk to your doctor. Discharge Activity: Return to Normal Activity May shower in (days): 1 Weight Bearing Status: Full weight bearing Call your doctor if your incision/area has: Continuous Slow Oozing, Sudden Increased Bleeding, Increased Pain/ Swelling, Increased Redness, Foul Smelling Discharge Call your doctor if you observe: Fever of 101 or Higher Suture Line Care: Avoid Pulling/Pushing, Avoid Pinching/Bending Additional Dressing/Incision Instructions:: Wet-to-dry dressing changes daily. Prior to dressing changes, soak in Epson salts bath for at least 30 minutes. Put 2 cups of Epson salts in warm water and soak for 30 minutes. If the dressing has stool on it, the dressing will need to be removed and dry gauze dressing placed until packing can be completed. Patient to come into our office daily to have dressing changes. Allergies/Adverse Reactions: Allergies No Known Allergies Allergy (Verified 10/05/20 12:04) Medications to take at Discharge Methocarbamol [Robaxin] 500 mg PO QHS 01/07/17 Gabapentin [Neurontin] 300 mg PO BID 02/11/19 Gauze Bandage [Kerlix] 1 ea TP BID #10 bandage 10/06/20 Oxycodone [Oxyir] 10 mg PO Q6H PRN PRN 5 Days #20 tab 10/06/20 Sodium Cl 0.9PC Irrig. Soln [Ns For Irrigation] 1,000 ml IR BID 10 Days #3 irrig.soln 10/06/20 metFORMIN HCl [Glucophage] 850 mg PO BIDCM #60 tab 10/06/20 Amox/Clavulanate Tablet [Augmentin Tablet] 500 mg PO TIDCM 8 Days #24 tab 10/08/20 The following prescriptions were given: Amox/Clavulanate Tablet [Augmentin Tablet] 500 mg PO TIDCM 8 Days #24 tab Transmission Status: Pending to [facility] #30 metFORMIN HCl [Glucophage] 850 mg PO BIDCM #60 tab Transmission Status: Received by [facility] #30 Gauze Bandage [Kerlix] 1 ea TP BID #10 bandage Transmission Status: Received by [facility]30 Sodium Cl 0.9PC Irrig. Soln [Ns For Irrigation] 1,000 ml IR BID 10 Days #3 irrig.soln Transmission Status: Received by [facility]30 Oxycodone [Oxyir] 10 mg PO Q6H PRN PRN 5 Days #20 tab PRN Reason: Pain 1-10 Or Fever Transmission Status: Received by [facility] Primary Care Physician: Joselyn Cummings DO [Primary Care Provider] - Test Results: Test results from this visit will be discussed in further detail at your follow-up appointment, if applicable. Please Follow Up With: Danette Villanueva, STEVENC - [phone] When: Tomorrow at 0930 Proposed Discharge Date: 10/08/20
--- NOTE | 2020-10-08 14:55 | DS.PCM_ITS ---
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) Morbid obesity due to excess calories (Chronic) Diabetes mellitus with complication (Chronic) Edema (Chronic) Venous insufficiency (Chronic) Other intervertebral disc degeneration, lumbar region (Chronic) Other intervertebral disc degeneration, lumbar region (Chronic) Spinal stenosis of lumbar region with neurogenic claudication (Chronic) Spinal stenosis of lumbar region with neurogenic claudication (Chronic) 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 Dr. Espinal performed an incision and drainage of perianal abscess on 10/05/2020. Patient tolerated the procedure well. He was having difficulties with pain control and his glucose levels were not under adequate control. Upon discharge, pain was better controlled. His glucose was better controlled. His is unable to complete dressing changes. Office follow-up was scheduled for the patient for dressing changes. Patient Problems: Active and Suspected Problems Perianal abscess (Acute) - Physical Exam Vitals/I&O's: Vital Signs Temp Pulse Resp BP Pulse Ox 98.5 F 85 16 168/63 H 94 10/08/20 10:30 10/08/20 10:30 10/08/20 10:30 10/08/20 10:30 10/08/20 10:30 Oxygen Delivery Method Room Air Weight: 375 lb 0.101 oz Body Mass Index (BMI) 46.8 Finger Stick Blood Glucose 274 Intake and Output for Last 24 Hours 10/06/20 10/07/20 10/08/20 23:59 23:59 23:59 Intake Total 4312.67 / 4312.67 2300 / 2300 900 / 900 Output Total 2400 / 2400 Balance 1912.67 / 1912.67 2300 / 2300 900 / 900 Skin: Ulcer/ Wound - perianal wound- moderate sized wound with small amount of drainage Microbiology Past 72 Hours 10/05/20 Unknown Aspirate - Buttock Gram Stain - Final 10/05/20 Unknown Aspirate - Buttock Wound Culture - Final Streptococcus group G 10/05/20 Unknown Aspirate - Buttock Anaerobic Culture - Preliminary Checking for anaerobes, further studies to follow. 10/05/20 14:50 Urine, Clean Catch Urine Culture - Final Culture exhibits no growth. 10/05/20 15:33 Mucosa - Nose SARS-CoV-2 Antigen (Rapid) - Final Laboratory Results 10/07/20 16:23: POC Glucose 195 H 10/07/20 22:19: POC Glucose 128 H 10/08/20 06:39: POC Glucose 102 10/08/20 11:56: POC Glucose 201 H Current Medications Amoxicillin/Clavulanate Potassium (Amox/Clavulanate 500 Mg Tablet) 500 mg PO TIDCM [facility] Last Admin: 10/08/20 11:58 Dose: 500 mg Documented by: Calcium Carbonate (Calcium Carbonate 500 Mg Tablet) 1,000 mg PO TIDCM [facility] Last Admin: 10/08/20 11:58 Dose: 1,000 mg Documented by: Dextrose (Dextrose 50%-Water 25 Gm/50 Ml Disp.Syrin) 0 gm IV X1 PRN; Protocol PRN Reason: Hypoglycemia Enoxaparin Sodium (Enoxaparin 40 Mg/0.4 Ml Syringe) 40 mg SC DAILY [facility] Last Admin: 10/08/20 08:44 Dose: 40 mg Documented by: Gabapentin (Gabapentin 300 Mg Capsule) 300 mg PO BID [facility] Last Admin: 10/08/20 08:45 Dose: 300 mg Documented by: Glucagon (Glucagon 1 Mg/Ml Syringe) 1 mg IM .X1 PRN PRN Reason: Hypoglycemia Hydromorphone HCl (Hydromorphone 0.5 Mg/0.5 Ml Syringe) 0.5 - 1 mg IV Q2H PRN PRN PRN Reason: Pain Score 1-10 Last Admin: 10/08/20 10:33 Dose: 0.5 mg Documented by: Sodium Chloride () 250 mls @ 15 mls/hr IV .[id number] PRN PRN Reason: Saline Flush Last Infusion: 10/08/20 08:05 Dose: Infused Documented by: Sodium Chloride () 250 mls @ 15 mls/hr IV .[id number] PRN PRN Reason: Additional IVPB Infusion Insulin Human Lispro (Insulin Lispro 100 Unit/Ml Insuln.Pen) 0 unit SC [facility]; Protocol Last Admin: 10/08/20 11:58 Dose: 4 u Documented by: Ketorolac Tromethamine (Ketorolac 15 Mg/Ml Vial) 15 mg IV Q6H PRN PRN PRN Reason: Pain Score 1-10 Last Admin: 10/07/20 08:25 Dose: 15 mg Documented by: Metformin [facility] ([facility] Hcl 850 Mg [facility]) [facility] Admin: 10/08/20 08:44 Dose: 850 mg Documented by: Methocarbamol (Methocarbamol 500 Mg Tablet) 500 mg PO QHS [facility] Last Admin: 10/07/20 22:22 Dose: 500 mg Documented by: Ondansetron HCl (Ondansetron 4 Mg/2 Ml Vial) 4 mg IV Q8H PRN PRN PRN Reason: NAUSEA Oxycodone HCl (Oxycodone 5 Mg Tablet) 5 - 10 mg PO Q4H PRN PRN PRN Reason: Pain Score 6-10 Last Admin: 10/08/20 12:01 Dose: 10 mg Documented by: Polyethylene Glycol (Polyethylene Glycol 3350 17 Gm Packet) 17 gm PO DAILY [facility] [place] Last Admin: 10/08/20 08:49 Dose: Not Given Documented by: Sodium Chloride (0.9% Saline Lock 10 Ml Syringe) 10 - 40 ml IV UD PRN PRN Reason: SALINE FLUSH Last Admin: 10/08/20 10:36 Dose: 10 ml Documented by: Discharge Diet: Light diet - advance as tolerated - If you have questions about your diet instructions, please talk to your doctor. Discharge Activity: Return to Normal Activity May shower in (days): 1 Weight Bearing Status: Full weight bearing Call your doctor if your incision/area has: Continuous Slow Oozing, Sudden Increased Bleeding, Increased Pain/ Swelling, Increased Redness, Foul Smelling Discharge Call your doctor if you observe: Fever of 101 or Higher Suture Line Care: Avoid Pulling/Pushing, Avoid Pinching/Bending Additional Dressing/Incision Instructions:: Wet-to-dry dressing changes daily. Prior to dressing changes, soak in Epson salts bath for at least 30 minutes. Put 2 cups of Epson salts in warm water and soak for 30 minutes. If the dressing has stool on it, the dressing will need to be removed and dry gauze dressing placed until packing can be completed. Patient to come into our office daily to have dressing changes. Home Medications: Medications to take at Discharge Methocarbamol [Robaxin] 500 mg PO QHS 01/07/17 Gabapentin [Neurontin] 300 mg PO BID 02/11/19 Gauze Bandage [Kerlix] 1 ea TP BID #10 bandage 10/06/20 Oxycodone [Oxyir] 10 mg PO Q6H PRN PRN 5 Days #20 tab 10/06/20 Sodium Cl 0.9PC Irrig. Soln [Ns For Irrigation] 1,000 ml IR BID 10 Days #3 irrig.soln 10/06/20 metFORMIN HCl [Glucophage] 850 mg PO BIDCM #60 tab 10/06/20 Amox/Clavulanate Tablet [Augmentin Tablet] 500 mg PO TIDCM 8 Days #24 tab 10/08/20 Following Prescriptions Were Given to Patient: Amox/Clavulanate Tablet [Augmentin Tablet] 500 mg PO TIDCM 8 Days #24 tab Transmission Status: Pending to [facility] #30 metFORMIN HCl [Glucophage] 850 mg PO BIDCM #60 tab Transmission Status: Received by [facility] #30 Gauze Bandage [Kerlix] 1 ea TP BID #10 bandage Transmission Status: Received by [facility] #30 Sodium Cl 0.9PC Irrig. Soln [Ns For Irrigation] 1,000 ml IR BID 10 Days #3 irrig.soln Transmission Status: Received by [facility] #30 Oxycodone [Oxyir] 10 mg PO Q6H PRN PRN 5 Days #20 tab PRN Reason: Pain 1-10 Or Fever Transmission Status: Received by [facility] #30 Primary Care Physician: Joselyn Cummings DO [Primary Care Provider] - Please Follow Up With: Danette Villanueva PA-C - [phone] When: Tomorrow at 0930 Additional Instructions: Please call and make an appointment with the wound center. Disposition: Home Minutes spent on discharge:: 20 Patient Condition:: Stable Medical Necessity - Tobacco Use Smoking Status: Former smoker Meaningful Use Info Meaningful Use Diagnoses (Choose all that apply): None applicable Inpatient E&M: 52902 Disch Hosp
[2020-10-08 15:20] VITALS: BP 163/92; PULSE 84; RESP 16; TEMP 36.9; O2SAT 97
--- NOTE | 2020-10-08 15:31 | PN_ITS ---
Patient Problems: Active and Suspected Problems Perianal abscess (Acute) Subjective: Patient was seen and examined today, arrangements were made for the patient to have his packing changed on a daily basis, blood sugars are still not under optimal control but I feel that the patient alters his diet and takes the Metformin, he might have a possibility of being under control on oral medications. - Physical Exam Vitals/I&O's: Vital Signs Temp Pulse Resp BP Pulse Ox 98.5 F 85 16 168/63 H 94 10/08/20 10:30 10/08/20 10:30 10/08/20 10:30 10/08/20 10:30 10/08/20 10:30 Oxygen Delivery Method Room Air Weight: 170.1 kg Body Mass Index (BMI) 46.8 Finger Stick Blood Glucose 274 Intake and Output for Last 24 Hours 10/06/20 10/07/20 10/08/20 23:59 23:59 23:59 Intake Total 4312.67 / 4312.67 2300 / 2300 900 / 900 Output Total 2400 / 2400 Balance 1912.67 / 1912.67 2300 / 2300 900 / 900 General: Alert, Oriented x3, Cooperative, No apparent distress, Well developed, Well nourished HEENT: Atraumatic, PERRLA, EOMI, Normocephalic Oral: Moist Mucosa Neck: Supple, No JVD, Trachea Midline, Thyroid Normal Size and Texture Lungs: Clear to auscultation, Normal air movement, No rhonchi, No wheeze, No rales Cardiovascular: Regular rate, Regular Rhythm, Normal S1, Normal S2, No murmurs, PMI Normal, No rub noted, No Gallop Abdomen: Bowel Sounds Present, Soft, Non Tender, Non-Distended, Obese Extremities: No clubbing, No cyanosis, No edema, Capillary Refill Less than 3 Seconds Skin: No rashes Musculoskeletal: No Tenderness to Palpation of Joints or Extremities Neurological: Cranial nerves II-XII grossly intact, Neuro grossly intact, Sensory exam intact to light touch and pain Psych/Mental Status: Normal Affect, Appropriate, Alert and oriented to time, place, person, mood and affect Microbiology Past 72 Hours 10/05/20 Unknown Aspirate - Buttock Gram Stain - Final 10/05/20 Unknown Aspirate - Buttock Wound Culture - Final Streptococcus group G 12/25/20 Unknown Aspirate - Buttock Anaerobic Culture - Preliminary Checking for anaerobes, further studies to follow. 10/05/20 14:50 Urine, Clean Catch Urine Culture - Final Culture exhibits no growth. 10/05/20 15:33 Mucosa - Nose SARS-CoV-2 Antigen (Rapid) - Final Laboratory Results 10/07/20 16:23: POC Glucose 195 H 10/07/20 22:19: POC Glucose 128 H 10/08/20 06:39: POC Glucose 102 10/08/20 11:56: POC Glucose 201 H Current Medications Amoxicillin/Clavulanate Potassium (Amox/Clavulanate 500 Mg Tablet) 500 mg PO TIDCM [facility] Last Admin: 10/08/20 11:58 Dose: 500 mg Documented by: Calcium Carbonate (Calcium Carbonate 500 Mg Tablet) 1,000 mg PO TIDCM [facility] Last Admin: 10/08/20 11:58 Dose: 1,000 mg Documented by: Dextrose (Dextrose 50%-Water 25 Gm/50 Ml Disp.Syrin) 0 gm IV X1 PRN; Protocol PRN Reason: Hypoglycemia Enoxaparin Sodium (Enoxaparin 40 Mg/0.4 Ml Syringe) 40 mg SC DAILY [facility] Last Admin: 10/08/20 08:44 Dose: 40 mg Documented by: Gabapentin (Gabapentin 300 Mg Capsule) 300 mg PO BID [facility] Last Admin: 10/08/20 08:45 Dose: 300 mg Documented by: Glucagon (Glucagon 1 Mg/Ml Syringe) 1 mg IM .X1 PRN PRN Reason: Hypoglycemia Hydromorphone HCl (Hydromorphone 0.5 Mg/0.5 Ml Syringe) 0.5 - 1 mg IV Q2H PRN PRN PRN Reason: Pain Score 1-10 Last Admin: 10/08/20 10:33 Dose: 0.5 mg Documented by: Sodium Chloride () 250 mls @ 15 mls/hr IV .[id number] PRN PRN Reason: Saline Flush Last Infusion: 10/08/20 08:05 Dose: Infused Documented by: Sodium Chloride () 250 mls @ 15 mls/hr IV .[id number] PRN PRN Reason: Additional IVPB Infusion Insulin Human Lispro (Insulin Lispro 100 Unit/Ml Insuln.Pen) 0 unit SC ACHS [facility]; Protocol Last Admin: 10/08/20 11:58 Dose: 4 u Documented by: Ketorolac Tromethamine (Ketorolac 15 Mg/Ml Vial) 15 mg IV Q6H PRN PRN PRN Reason: Pain Score 1-10 Last Admin: 10/07/20 08:25 Dose: 15 mg Documented by: Metformin HCl (Metformin Hcl 850 Mg Tablet) 850 mg PO BIDCM [facility] Last Admin: 10/08/20 08:44 Dose: 850 mg Documented by: Methocarbamol (Methocarbamol 500 Mg Tablet) 500 mg PO QHS [facility] Last Admin: 10/07/20 22:22 Dose: 500 mg Documented by: Ondansetron HCl (Ondansetron 4 Mg/2 Ml Vial) 4 mg IV Q8H PRN PRN PRN Reason: NAUSEA Oxycodone HCl (Oxycodone 5 Mg Tablet) 5 - 10 mg PO Q4H PRN PRN PRN Reason: Pain Score 6-10 Last Admin: 10/08/20 12:01 Dose: 10 mg Documented by: Polyethylene Glycol (Polyethylene Glycol 3350 17 Gm Packet) 17 gm PO DAILY [facility] Last Admin: 10/08/20 08:49 Dose: Not Given Documented by: Sodium Chloride (0.9% Saline Lock 10 Ml Syringe) 10 - 40 ml IV UD PRN PRN Reason: SALINE FLUSH Last Admin: 10/08/20 10:36 Dose: 10 ml Documented by: Medical Necessity - Tobacco Use Smoking Status: Former smoker Assessment/Plan All Active Problems Ulcer of right lower extremity with fat layer exposed (Acute) Perianal abscess (Acute) Cellulitis (Ruled-out) #1 type 2 diabetes-patient will remain on Metformin as an outpatient, he was given a prescription for a glucose monitor, strips, and lancets. He has been instructed to check his sugars twice a day and follow-up with his PCP. #2 morbid obesity #3 status post perianal abscess drainage postop day #3 #4 liver cirrhosis secondary to Soriano #5 spinal stenosis Inpatient E&M: [id number] [facility] L2
== END 2020-10-08 16:23 | disposition home or self-care (01) ==
LOC: ED 12:39 → SDC 15:31 → AC 15:33 → SDC 18:02 → MS3 18:02
PROVIDERS: Family Medicine; Admitting Provider Surgery; Emergency Provider Emergency Medicine; PCP Internal Medicine; Visit Provider Surgery
PROC: (CPT 46040; principal; 2020-10-05 16:00)
DX: K61.0 Anal abscess (principal); K75.81 Nonalcoholic steatohepatitis (NASH); K74.60 Unspecified cirrhosis of liver; I10 Essential (primary) hypertension; M48.062 Spinal stenosis, lumbar region with neurogenic claudication; M51.16 Intervertebral disc disorders with radiculopathy, lumbar region; I87.2 Venous insufficiency (chronic) (peripheral); E66.01 Morbid (severe) obesity due to excess calories; J45.909 Unspecified asthma, uncomplicated; G47.30 Sleep apnea, unspecified; G89.29 Other chronic pain; E11.65 Type 2 diabetes mellitus with hyperglycemia; Z87.891 Personal history of nicotine dependence; Z68.42 Body mass index [BMI] 45.0-49.9, adult; G25.81 Restless legs syndrome; Z86.718 Personal history of other venous thrombosis and embolism; Z79.899 Other long term (current) drug therapy
CPT/HCPCS: 46050; 74177; 80048; 81001; 82962; 83036; 85025; 87070; 87075; 87077; 87086; 87205; 87426; 87640; 96361; 96365; 96366; 96372; 96375; 96376; 97802; 99218; 99251; 99282; J7030; J7050; Q9967; A4216; G0378; G0463; J2405

== ENCOUNTER 2020-10-14 04:39 | Emergency (ER) | payer OTHER, SELFPAY ==
[2020-10-14 04:39] VITALS: BP 184/81; PULSE 89; RESP 18; TEMP 36.6; O2SAT 96; BMI 44.2
--- NOTE | 2020-10-14 04:46 | ED.DCSUM_ITS ---
History of Present Illness Chief Complaint: Lower Extremity Injury Detail of Chief Complaint: left calf pain Informant: Patient Onset: Yesterday Context: Gradual Onset - without injury Timing: Continuous Quality: sore Location: left calf Current Severity: Mild Maximum Severity: Moderate Worsened by: moving, walking Relieved by: remaining still Associated Symptoms: none. no cp, sob, lightheadedness, syncope, palpitations. Narrative: Patient concerned he may have a DVT in his left lower leg. He states that on Abel[place] just over 1 week ago, he had an abscess surgically drained from his perineum in the operating room. Since then he has not been getting around very much and yesterday developed pain without swelling in his left calf. He denies any symptoms of a PE. He states in the past he was on warfarin for DVT and is not anticoagulated any longer. 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 Prior similar symptoms: Yes - similar pain w/ prior DVT - Past Medical History (1) Diabetes mellitus with complication Status: Chronic (2) Intervertebral disc disorder with radiculopathy of lumbar region Status: Chronic (3) Liver cirrhosis secondary to DEAN Status: Chronic (4) Spinal stenosis of lumbar region with neurogenic claudication Status: Chronic (5) Venous insufficiency Status: Chronic (6) Gout attack Status: Suspected (7) DVT (deep venous thrombosis) Status: Inactive Past Medical History - Allergies and Home Meds Allergies/Adverse Reactions: Allergies No Known Allergies Allergy (Verified 10/10/20 10:04) Primary Care Physician: Joselyn Cummings DO [Primary Care Provider] - Surgical History: cholecystectomy, - - Foot surgery, Finger surgery, Testicular surgery, ? EGD/[facility]. - Family History Maternal Family History: Reports: COPD, Hypertension Paternal Family History: Reports: Cancer Review of Systems General: Denies: Chills, Fever, Sweats Eyes: Denies: Visual changes - bilaterally, Diplopia ENT: Denies: Rhinorrhea, Sore throat Cardiovascular: Denies: Chest pain, Palpitations, Heart racing Respiratory: Denies: Dyspnea, Cough, Dyspnea on exertion Gastrointestinal: Denies: Abdominal pain, Nausea, Vomiting, Diarrhea, Melena, Hematochezia Genitourinary: Denies: Dysuria, Hematuria, Frequency Musculoskeletal: Reports: Extremity Pain. Denies: Back pain Skin: Denies: Rash, Abrasions Neurological: Denies: Headache, Weakness, Numbness Physical Exam Vital Signs/Narrative: Vital Signs Temp Pulse Resp BP Pulse Ox 10/14/20 04:39 97.8 F 89 18 184/81 H 96 Inital Vital Signs reviewed: Yes General: Well nourished, Well developed, Obese, No Acute Distress Head: Normocephalic, Atraumatic Eyes: Perrl, EOMI ENT: Moist mucous membranes, No rhinorrhea Neck: Supple, - - FROM Respiratory: No distress Back: Nontender, Normal Inspection Extremities: No edema, Calf Tenderness - Left, with positive Homans. No p alpable cords in left lower leg or thigh. No erythema/color changes. Skin: Normal color, No rash, No Trauma Neurological: Alert, Oriented x3, Cranial nerves II-XII grossly intact, Normal Strength, Normal Sensation, Normal Gait Psychological: Normal affect, Normal Mood Diagnostic/Tx/Re-eval Laboratory Tests 10/14/20 Range/Units 04:50 D-Dimer Quant (PE/DVT) 0.49 (0.27-0.49) FEU/ug/m - Medical Decision Making Patient presents when vascular ultrasound is not available, overnight shift. Therefore, D-dimer was obtained and is within normal limits. Patient is reassured, this essentially rules out an acute DVT. He is advised to follow-up, or is always welcome to return for worsening issues with his leg. ED Disposition - Plan for ED Patient: Disposition: Home or Assisted Living Diagnosis: Pain of left calf Instructions: ED Leg Spasm Referrals: Joselyn Cummings DO [Primary Care Provider] - 1-2 Days if not improving
[2020-10-14 05:17] LABS: D-Dimer Quantitative (DVT/PE) 0.49 FEU/ug/m (0.27-0.49)
== END 2020-10-14 05:40 | disposition home or self-care (01) ==
PROVIDERS: Emergency Provider Emergency Medicine; PCP Internal Medicine
DX: M79.662 Pain in left lower leg (principal); E11.9 Type 2 diabetes mellitus without complications; K75.81 Nonalcoholic steatohepatitis (NASH); K74.60 Unspecified cirrhosis of liver; I87.2 Venous insufficiency (chronic) (peripheral); M54.16 Radiculopathy, lumbar region; Z79.01 Long term (current) use of anticoagulants; Z82.49 Family history of ischemic heart disease and other diseases of the circulatory system; Z86.718 Personal history of other venous thrombosis and embolism; Z90.49 Acquired absence of other specified parts of digestive tract; M48.062 Spinal stenosis, lumbar region with neurogenic claudication
CPT/HCPCS: 36415; 85379; 99282

== ENCOUNTER → 2020-11-30 17:43 | Outpatient (CLI) | payer OTHER, SELFPAY | PROVIDERS: PCP Internal Medicine; Referring Provider Anesthesiology; Visit Provider Anesthesiology | DX: F11.20 Opioid dependence, uncomplicated (principal) | CPT/HCPCS: 36415 ==

== ENCOUNTER 2021-04-05 06:10 | Emergency (ER) | payer OTHER, SELFPAY ==
[2021-04-05 06:11] VITALS: BP 159/58; PULSE 105; RESP 18; TEMP 36.9; O2SAT 100; BMI 44.4
--- NOTE | 2021-04-05 06:28 | EKG12_ITS ---
Test Reason : REPEAT Blood Pressure : / mmHG Vent. Rate : 075 BPM Atrial Rate : 081 BPM P-R Int : 162 ms QRS Dur : 110 ms QT Int : 414 ms P-R-T Axes : 060 032 056 degrees QTc Int : 462 ms Normal sinus rhythm with sinus arrhythmia Cannot rule out Anterior infarct , age undetermined Abnormal ECG Confirmed by CHARISSA CULLEN, KIAN ([id number]), newspaper photo editor ELICIA BARBA ([id number]) on 04/09/2021 6:58:19 AM Referred By: BRIANNA Confirmed By:KIAN CARRINGTON MD
--- NOTE | 2021-04-05 06:29 | EX.ED.DYSGE1 ---
HPI History of Present Illness Chief Complaint: General Illness Informant: patient Onset/Context/Timing Onset: Today Current Severity: Mild Maximum Severity: Moderate Narrative Narrative: Patient presents secondary to not feeling well. Patient states he woke this morning does not feel right. He checked his blood pressure at home and systolic pressure was reading 201. He took his normal blood pressure medication approximately an hour ago. He was not feeling better so came to the emergency room. He states he did feel nauseated and was having some dry heaves. He thinks he may have pulled a muscle across his chest from the dry heaves. He does note that both hands have been shaky for the past 4 days. 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 Lumbar disc disease with radiculopathy Lumbar disc prolapse with compression radiculopathy Malnutrition Morbid obesity due to excess calories Other intervertebral disc degeneration, lumbar region Other intervertebral disc degeneration, lumbar region Perianal abscess Perianal abscess Spinal stenosis of lumbar region with neurogenic claudication Spinal stenosis of lumbar region with neurogenic claudication Thrombocytopenia Ulcer of left ankle Ulcer of right lower extremity with fat layer exposed Venous insufficiency Home Medications methocarbamol 750 mg PO QHS 01/07/17 [History Last Taken 07/03/20 21:00] gabapentin 300 mg PO BID 02/11/19 [History Last Taken 07/05/20 05:00] gauze bandage #10 bandage 10/06/20 [Rx Last Taken Unknown] metformin 850 mg PO BIDCM #60 tab 10/06/20 [Rx Last Taken Unknown] buprenorphine 1 patch TRANSDERMAL QWEEK 04/05/21 [History Last Taken Unknown] lisinopril 10 mg PO DAILY 04/05/21 [History Last Taken Unknown] oxycodone 5 mg PO BID 04/05/21 [History Last Taken Unknown] tamsulosin 0.4 mg PO DAILY 04/05/21 [History Last Taken Unknown] Allergy/AdvReac Type Severity Reaction Status Date / Time No Known Allergies Allergy Verified 04/05/21 06:14 Surgical History history incision and drainage perianal abscess (~10/05/20) Social History Smoking Status: Former smoker ROS ROS ED Constitutional Constitutional ED: Denies chills or fever(s) Eyes Eyes: Denies change in vision ENT ENT ED: Denies sore throat Cardiovascular Cardiovascular: Denies chest pain Respiratory/Chest Respiratory/Chest: Denies cough or dyspnea Gastrointestinal Gastrointestinal: Reports nausea; Denies abdominal pain, diarrhea or vomiting Genitourinary Genitourinary ED: Denies dysuria Musculoskeletal Musculoskeletal: Denies back pain Integumentary Denies rash Neurologic Neurologic: Denies headache(s) or weakness Psychiatric Psychiatric: Denies anxiety or depression Endocrine Endocrinology: Denies polydipsia or polyuria Allergic/Immunologic Allergic/Immunologic ED: Denies urticaria EXAM Physical Exam Const Vital Signs: 04/05/21 06:11 04/05/21 06:16 Temperature 98.4 F Temperature Source Temporal Pulse Rate 105 H Respiratory Rate 18 Respiratory Effort Normal Respiratory Pattern Normal Blood Pressure 159/58 H Blood Pressure Mean 91 Pulse Ox 100 Positive well nourished and well developed General Appearance ED: well developed HEENT Reports normocephalic and head/scalp atraumatic Eyes PERRL and EOMs intact bilaterally Neck supple Chest Wall inspection of chest normal and palpation of chest normal Resp normal respiratory effort and clear to auscultation bilaterally Cardio regular rate and regular rhythm GI normal to inspection, nondistended, normoactive bowel sounds and non-tender Palpation: soft Extremity normal to inspection Neuro oriented x3 and no sensory deficits noted Sensorium / Orientation: alert Motor Exam: strength 5/5 throughout Psych mental status grossly normal Skin no rashes or lesions noted MDM MDM MDM Narrative Medical decision making narrative: EKG and labs are obtained. BGT on arrival is 242. Lab Data Attestation: I reviewed the patient's lab results. Labs: Laboratory Results - last 24 hr 04/05/21 04/05/21 04/05/21 06:20 06:20 06:30 WBC 3.3 L RBC 4.50 L Hgb 14.4 Hct 40.8 MCV 90.7 MCH 32.0 MCHC 35.3 RDW Std Deviation 45.7 H RDW Coeff of Ramya 13.7 Plt Count 60 L MPV 11.6 Immature Gran % (Auto) 0.300 Neut % (Auto) 49.6 Lymph % (Auto) 33.1 Henry % (Auto) 9.4 Eos % (Auto) 6.4 H Baso % (Auto) 1.2 H Absolute Neuts (auto) 1.6 L Absolute Lymphs (auto) 1.09 Nucleated RBC % 0 Differential Comment SCANNED Platelet Estimate MOD DEC Sodium 141 Potassium 3.5 Chloride 108 H Carbon Dioxide 25.0 Anion Gap 8 BUN 6 L Creatinine 0.78 Estim Creat Clear Calc 141.44 Est GFR (MDRD) Af Amer 138 Est GFR (MDRD) Non-Af 114 BUN/Creatinine Ratio 7.7 L Glucose 242 H Calcium 8.1 L Troponin I High Sens 14.2 POC Glucose 04/05/21 06:33 WBC RBC Hgb Hct MCV MCH MCHC RDW Std Deviation RDW Coeff of Ramya Plt Count MPV Immature Gran % (Auto) Neut % (Auto) Lymph % (Auto) Henry % (Auto) Eos % (Auto) Baso % (Auto) Absolute Neuts (auto) Absolute Lymphs (auto) Nucleated RBC % Differential Comment Platelet Estimate Sodium Potassium Chloride Carbon Dioxide Anion Gap BUN Creatinine Estim Creat Clear Calc Est GFR (MDRD) Af Amer Est GFR (MDRD) Non-Af BUN/Creatinine Ratio Glucose Calcium Troponin I High Sens POC Glucose 242 H EKG Initial EKG: Attestation: I personally reviewed and interpreted this EKG as follows: Interpretation: Sinus Rhythm (Sinus at [address] change.) Treatment and Re-Evaluation Comments:: Repeat evaluation patient stated he felt still did not feel well. He tells me he had one episode like this in the past. He had a significant cardiac work-up with no acute findings and it was felt the patient had a panic attack. At this time troponin is added and patient is given a small dose of Ativan. On repeat evaluation he is resting comfortably and states he no longer feels like he is so anxious. High-sensitivity troponin returns at 14 with only 1 hour symptoms. This will be repeated in 2 hours. Discharge Plan Triage Chief Complaint: General Illness ED Provider: Milly Grady Dx/Rx/DC Orders Prescriptions: No Action methocarbamol 500 MG tablet 750 mg PO QHS RF: 0 gabapentin 300 MG capsule 300 mg PO BID RF: 0 (DME) gauze bandage 1 EACH bandage 1 ea TP BID Qty: 10 RF: 5 metformin 850 MG tablet 850 mg PO BIDCM Qty: 60 RF: 0 lisinopril 10 mg tablet 10 mg PO DAILY RF: 0 buprenorphine 10 mcg/hour patch weekly 1 patch transdermal QWEEK RF: 0 tamsulosin 0.4 mg capsule 0.4 mg PO DAILY RF: 0 oxycodone 5 mg tablet 5 mg PO BID RF: 0 Primary Care Provider: Joselyn Cummings Referrals: Joselyn Cummings DO [Primary Care Provider] -
[2021-04-05 06:35] LABS: Bedside Glucose 242 mg/dL (70-110)
[2021-04-05 06:36] LABS: Absolute Lymphocyte Count 1.09 X10^3/uL (0.83-4.51); Absolute Neutrophil Count 1.6 X10^3/uL (2.0-7.7); Basophil# 0.04 X10^3/uL; Basophil% 1.2 % (0-1); Eosinophil# 0.21 X10^3/uL; Eosinophils% 6.4 % (0-5); Hematocrit 40.8 % (40-54); Hemoglobin 14.4 g/dL (13.0-16.5); Lymphocyte # 1.09 X10^3/ul (0.83-4.51); Lymphocyte % 33.1 % (19-41); Mean Corp Hgb Conc 35.3 g/dL (32-36); Mean Corpuscular Volume 90.7 fL (80-94); Mean Platelet Vol. 11.6 fl (6.2-12.0); Monocyte# 0.31 X10^3/uL; Monocyte% 9.4 % (0-10); NRBC Flagged by Analyzer 0 % (0-5); Neutrophil # 1.63 X10^3/uL (2.7-7.7); Neutrophil % 49.6 % (47-70); POSITIVE COUNT YES; Platelet Count 60 K/mm3 (150-450); RBC Distribution Width CV 13.7 % (11.6-14.6); RBC Distribution Width SD 45.7 fl (35.1-43.9); White Blood Count 3.3 K/mm3 (4.4-11.0)
[2021-04-05 06:51] LABS: Differential Indicated SCAN CRITERIA MET
[2021-04-05 06:52] LABS: Differential Comment SCANNED; Platelet Estimate MOD DEC (ADEQ)
[2021-04-05 06:59] LABS: Anion Gap 8 (5-15); BUN 6 mg/dL (7-18); BUN/Creat Ratio 7.7 RATIO (10-20); Calcium,Total 8.1 mg/dL (8.5-10.1); Chloride 108 mmol/L (98-107); Creatinine, Serum 0.78 mg/dL (0.70-1.30); EST Glomerular Filtration Rate 114 mL/min (>60); Est Glom Filt Rate - Afr Amer 138 mL/min (>60); Estimated Creatinine Clearance 141.44 ml/min; Glucose 242 mg/dL (74-106); Potassium 3.5 mmol/L (3.5-5.1); Sodium Level 141 mmol/L (136-145)
[2021-04-05] MEDS: Ondansetron 4 MG/2 ML Vial IV (07:00)
[2021-04-05] MEDS: 0.9% Normal Saline 1,000 ML 150 ML IV (07:00)
[2021-04-05] MEDS: LORazepam 2 MG/ML Syringe 0.5 MG IV (07:27)
[2021-04-05 07:56] LABS: Troponin-I HS 14.2 pg/mL (3.0-78.5)
[2021-04-05 08:14] VITALS: BP 133/61; PULSE 103; RESP 15; O2SAT 96
--- NOTE | 2021-04-05 08:30 | EKG12_ITS ---
Test Reason : GENERAL ILLNNESS Blood Pressure : / mmHG Vent. Rate : 091 BPM Atrial Rate : 091 BPM P-R Int : 162 ms QRS Dur : 108 ms QT Int : 396 ms P-R-T Axes : 057 010 046 degrees QTc Int : 487 ms Normal sinus rhythm Septal infarct , age undetermined Possible Inferior infarct , age undetermined Abnormal ECG Confirmed by CHARISSA CULLEN, KIAN ([id number]), editorial assistant ELICIA BARBA ([id number]) on 04/09/2021 8:38:46 AM Referred By: BRIANNA Confirmed By:KIAN CARRINGTON MD
[2021-04-05 08:52] LABS: Troponin-I HS 12.9 pg/mL (3.0-78.5)
[2021-04-05 09:03] VITALS: BP 130/72; PULSE 64; RESP 15; O2SAT 97
== END 2021-04-05 09:04 | disposition home or self-care (01) ==
PROVIDERS: Emergency Provider Emergency Medicine; PCP Internal Medicine
DX: R11.0 Nausea (principal); D69.6 Thrombocytopenia, unspecified; E11.9 Type 2 diabetes mellitus without complications; I87.2 Venous insufficiency (chronic) (peripheral); Z79.84 Long term (current) use of oral hypoglycemic drugs; Z79.899 Other long term (current) drug therapy; Z87.891 Personal history of nicotine dependence
CPT/HCPCS: 80048; 82962; 84484; 85025; 93005; 96361; 96374; 96375; 99284; J7030; A4216; J2405

== ENCOUNTER 2021-05-17 08:32 | Outpatient (RCR) | payer OTHER, SELFPAY ==
--- NOTE | 2021-05-21 08:53 | HP.OTFCE_ITS ---
Floor (Occasional 1-33% of Day): 25# Floor (Frequent 34-66% of Day): 12# Floor (Constant 67-100% of Day): NA Floor PDL: Light Knee (Occasional 1-33% of Day): 25# Knee (Frequent 34-66% of Day): 12# Knee (Constant 67-100% of Day): NA Knee PDL: Light Waist (Occasional 1-33% of Day): 25# Waist (Frequent 34-66% of Day): 12# Waist (Constant 67-100% of Day): NA Waist PDL: Light Shoulder (Occasional 1-33% of Day): 25# Shoulder (Frequent 34-66% of Day): 12# Shoulder (Constant 67-100% of Day): NA Shoulder PDL: Light Overhead (Occasional 1-33% of Day): 25# Overhead (Frequent 34-66% of Day): 12# Overhead (Constant 67-100% of Day): NA Overhead PDL: Light Bending: Occasional Ability (1-33% of day) Squatting: Occasional Ability (1-33% of day) Comments: low occasional ability Kneeling: No Ablility (0% of day) Comments: knee injury Reaching out: Frequent Ability (34-66% of day) Reaching up: Frequent Ability (34-66% of day) Sitting: Frequent Ability (34-66% of day) Walking: Occasional Ability (1-33% of day) Standing: Occasional Ability (1-33% of day) Duration Sedentary Sedentary Light Light Light Medium Medium Medium Heavy Very Heavy Heavy Occasional (0-33% of day) Frequent (34-66% of day) Constant (67-100% of day) 10 # Negligible Negligible 15 # 8 # Negligible 20 # 10# Negli. 35 # 18 # 7 # 50 # 25 # 10 # 75 # 100 # >100 # 38 # 50 # >50 # 15 # 20 # >20 # Weight:: 158.757 kg Hand Dominance: right Medical History Including Restrictions: This pt states he was in good health until about 5 years ago he developed back pain over time. pt states he underwent physical therapy two or three times but last time pt was there was in 2018. pt states he has been in pain mtg for about 4 years. pt states he gets injections but due to pts dx of DEAN he hasn't had many injections. pt states he did see a orthopedic spine sx about 4 years ago but hasn't return diogo one since. pt states his would like him to have a MRI but hasn't heard back from scheduling yet. pt states he sees his pain mtg. dr Beck today for a four week follow up. pt states he does use compression sock for LE swelling pt states he feels the compression socks are 30-40 mmHg. due to recurrent cellulites. pt states last flair of cellulitis 2019. pt does not exercise on a regular basis. Pt does not use tobacco products. pt states his pain mtg. doctor did place him on a 20# lifting restriction. Diagnoses: DEAN dx 2018 or 2019. HTN dx in 2018/2018. Prostate dx 2018. DM II dx in 2017. left Knee meniscus tear. right knee repaired meniscus 2019. ADHD controlled with medication Symptoms: Back pain. Cramping in LE. Tingling on middle toe of right foot. Left knee pain Pain: Pt reports his pain level is 7/10 with medication of oxycodone taken at 8am. Work History: pt states he has worked for [employer] for 20 years. Pt states the last he worked was 2018. pt states he went on short term disability and followed with assisted disability. pt states the pain mtg told pt to stop working. 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 pt states he does use compression sock for LE swelling pt states he feels the compression socks are 30-40 mmHg. due to recurrent cellulites. pt states last flair of cellulitis 2019. Behavioral: pt was cooperative throughout session- pt flat affect during assessment. ADLS: Pt lives in a two story home with three entry steps without handrail. Pt lives with his and two children (ages 16-17). Pt states he has master bedroom and bathroom on first floor. pt has tub shower combination - pt states he does have a shower chair but does not currently use it. Pt drives [employer]. Pt states his son does the yard work. Pt states he does some of the cooking, cleaning and laundry- pt does not do the grocery shopping. Pt works outside of home- pt states he is independent with bathing and dressing and has not needed assistance with this. Physical Examination: resting heart rate 78 ROM: pt demo UB and LB ROM WFL. pt demo with Strength: pt demo with good UB strength testing with MMT 5/5 UB grossly throughout. Pt LB. MMT 4/5 grossly throughout. pt did complain of back pain with testing LB. Right Hydro Generation Manager Strength Average: 91.66 Right Hydro Generation Manager Strength Percentile: 13% Left Hydro Generation Manager Strength Average: 95.00 Left Hydro Generation Manager Strength Percentile: 28% Right Lateral Pinch Average: 14.00 Right Lateral Pinch Percentile: <10-% Left Lateral Pinch Average: 14.00 Left Lateral Pinch Percentile: 10% Right Tripod Pinch Average: 18.66 Right Tripod Pinch Percentile: 25% Left Tripod Pinch Average: 19.66 Left Tripod Pinch Percentile: 50% Sensation: [place] [employer] sensory testing. right and left tested at 2.83 all digits = Normal sensation Fine Motor: 9 hole-peg. right 18.70sec. = 75%. left 20.53 sec. =50% Balance: pt demonstrated good-normal dynamic and standing balance. no noted loss of balance throughout assessment. Bending: pt demonstrated the ability to bend forward 3/3, 10/10 and 1010. heart rage increased to 114. pt reported back low back pain 8/. pt can bend forward on an occasional ability Squatting: pt demonstrated the ability to squat three times with external support- pt refused to continue due to left knee pain 8/10 and low back pain 8/10. pt can squat on a low occasional ability with external support. Kneeling: pt demonstrated the ability to kneel three times with external support- pt refused to continue due to left knee pain 8/10 and low back pain 8/10. pts heart rate 87. pt demo no safe ability to kneel due to per pt left meniscus tear Reaching out/up: pt demonstrated the ability to reach up/out 3/3, 10/10 and 1010. heart rate 92, pt repots left shoulder pain 12/19. pt can reach out/up on a frequent ability Walking: pt ambulated with a reciprocal antalgic gait pattern. heart rate 106. low back pain and to the right at 7-8/ Standing: pt demonstrated the ability to stand for 4 min with good ability- Sitting: pt demonstrated the ability to sit for 35 min with no apparent or expre ssed discomfort. pt can sit on a frequent ability Climbing Stairs: pt demonstrated the ability to ascend and descend 10 steps with a reciprocal step pattern with use of bilateral handrails. Floor Lift: pt demonstrated the ability to lift 25#. pt demo fair lifting mechanics Knee Lift: pt demonstrate the ability to lift 25#. pt demo fair lifting mechanics Waist Lift: pt demonstrate the ability to lift 25#. pt demo fair lifting mechanics Shoulder Lift: pt demonstrate the ability to lift 25#. pt demo fair lifting mechanics Overhead Lift: pt demonstrate the ability to lift 25#. pt demo fair lifting mechanics Carrying: pt demonstrated the ability to carry 15# for 40 feet with good ability Comments: pt did demo fair lifting mechanics during tasks-. pt reported low back and left knee pain at 05/21. pts heart rate 101 following assessment -pt sat for 4 min and heart rate decreased to 83
--- NOTE | 2021-05-21 08:53 | HP.OTFCE.D ---
FCE D/C Summary - Discharge PAUL COLEMAN was seen for a one time visit for an FCE on 05/17/21 and is discharged.
== END 2021-05-17 19:00 | disposition home or self-care (01) ==
LOC: OT 08:32
PROVIDERS: PCP Nurse Practitioner; Referring Provider Anesthesiology; Visit Provider Anesthesiology
DX: M51.36 Other intervertebral disc degeneration, lumbar region (principal)
CPT/HCPCS: 97750

== ENCOUNTER → 2021-05-17 17:48 | Outpatient (CLI) | payer OTHER, SELFPAY | PROVIDERS: PCP Nurse Practitioner; Referring Provider Anesthesiology; Visit Provider Anesthesiology | DX: F11.20 Opioid dependence, uncomplicated (principal) | CPT/HCPCS: 36415 ==

== ENCOUNTER 2021-05-22 18:01 | Inpatient (IN) | payer OTHER, SELFPAY ==
[2021-05-22] VITALS (15 sets, daily range): BP systolic 121–147; BP diastolic 49–96; PULSE 88–104; RESP 14–20; TEMP 37.7–38.4; O2SAT 93–98; BMI 43.7; BMI 44.4
--- NOTE | 2021-05-22 19:04 | EKG12_ITS ---
Test Reason : DYSRHYTHMIA Blood Pressure : / mmHG Vent. Rate : 089 BPM Atrial Rate : 089 BPM P-R Int : 156 ms QRS Dur : 096 ms QT Int : 410 ms P-R-T Axes : 027 008 032 degrees QTc Int : 498 ms Normal sinus rhythm Normal ECG Confirmed by MICHAEL CULLEN, PHIL ([id number]), state editor ELICIA BARBA ([id number]) on 05/24/2021 10:13:03 A M Referred By: YG Confirmed By:ISACC RODRIGUEZ MD
--- NOTE | 2021-05-22 19:23 | EDS_ITS ---
HPI History of Present Illness Chief Complaint: Cellulitis Informant: patient and spouse/S.O. Onset/Context/Timing Onset: Yesterday (Redness and pain left leg started last evening) and Weeks (Abrasion abdomen with redness approximately 2 weeks ago) Context: Sudden Onset (The wound on the abdomen and left lower extremity/leg) Timing: Continuous Current Severity: Moderate Maximum Severity: Moderate Worsened by: Nothing Relieved by: Nothing Associated Symptoms Associated Symptoms: Fever documented to 101.8 ?F, chills, polyuria and polydipsia Narrative Narrative: Patient is a 46-year-old male with type 2 diabetes, cellulitis (see MRSA) who presents with documented fever 201.8 with shaking chills. He states he had a wound on his abdomen that occurred 2 weeks ago. Shortly afterwards it became red. The redness is gotten worse. Last evening his left leg and foot became red. There are areas of excoriation. He denies double vision or blurred vision. He denies rhinorrhea, congestion postnasal drainage. Denies decreased hearing or drainage from his ears. Denies headache. Denies neck pain or neck stiffness. He denies shortness of breath or cough. Denies chest pain. He does report nausea without vomiting diarrhea. He denies dysuria, frequency, urgency or hematuria. Denies nocturia. Prior similar symptoms: Yes Recent Illness/Hospitalization: No [facility], [facility] Medical History (Updated 05/22/21 @ 20:[address] 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 Lumbar disc disease with radiculopathy Lumbar disc prolapse with compression radiculopathy Malnutrition Morbid obesity due to excess calories Other intervertebral disc degeneration, lumbar region Other intervertebral disc degeneration, lumbar region Perianal abscess Perianal abscess Spinal stenosis of lumbar region with neurogenic claudication Spinal stenosis of lumbar region with neurogenic claudication Thrombocytopenia Ulcer of left ankle Ulcer of right lower extremity with fat layer exposed Venous insufficiency Home Medications methocarbamol 750 mg PO QHS 01/07/17 [History Last Taken 07/03/20 21:00] gabapentin 300 mg PO BID 02/11/19 [History Last Taken 07/05/20 05:00] metformin 850 mg PO BIDCM #60 tab 12/26/20 [Rx Last Taken Unknown] buprenorphine 1 patch TRANSDERMAL QWEEK 04/05/21 [History Last Taken Unknown] lisinopril 10 mg PO DAILY 04/05/21 [History Last Taken Unknown] oxycodone 5 mg PO BID 04/05/21 [History Last Taken Unknown] tamsulosin 0.4 mg PO DAILY 04/05/21 [History Last Taken Unknown] dextroamphetamine-amphetamine [Adderall] 20 mg PO DAILY 05/22/21 [History Last Taken Unknown] Allergy/AdvReac Type Severity Reaction Status Date / Time No Known Allergies Allergy Verified 05/22/21 18:03 Surgical History history incision and drainage perianal abscess (~10/05/20) Social History (Updated 05/22/21 @ 19:[address] Stuart Machado MD) household members: spouse and children Smoking Status: Former smoker alcohol intake: current alcohol intake frequency: other substance use type: does not use ROS ROS ED Constitutional Constitutional ED: Reports chills, fever(s) and sweats Eyes Eyes: Denies blurry vision, change in vision or diplopia ENT ENT ED: Denies ear pain, rhinorrhea or sore throat Cardiovascular Cardiovascular: Denies chest pain, orthopnea, palpitations or racing heartbeat Respiratory/Chest Respiratory/Chest: Denies cough, dyspnea, dyspnea on exertion or orthopnea Gastrointestinal Gastrointestinal: Reports nausea; Denies abdominal pain, constipation, diarrhea or vomiting Genitourinary Genitourinary ED: Denies dysuria, hematuria or urinary frequency Musculoskeletal Musculoskeletal: Denies arthralgias, back pain, myalgias or neck pain Integumentary Reports rash; Denies abscess Neurologic Neurologic: Denies paresthesias or weakness Endocrine Endocrinology: Reports polydipsia and polyuria; Denies polyphagia EXAM Physical Exam Const Vital Signs: 05/22/21 18:01 05/22/21 18:03 05/22/21 19:04 Temperature 100 F H 100 F H 101.1 F H Temperature Source Temporal Temporal Oral Pulse Rate 104 H 104 H 91 Respiratory Rate 20 H 20 H 16 Blood Pressure 147/66 H 147/66 H 143/58 H Blood Pressure Mean 93 93 86 Pulse Ox 97 97 94 Oxygen Delivery Method Room Air Room Air Room Air 05/22/21 19:24 05/22/21 19:35 05/22/21 20:16 Temperature 101.1 F H 101.2 F H Temperature Source Oral Oral Pulse Rate 90 Respiratory Rate 19 H Blood Pressure 144/65 H Blood Pressure Mean 91 Pulse Ox 98 98 Oxygen Delivery Method Room Air Room Air Positive well nourished, well developed and obese General Appearance ED: well developed and other Patient appears ill but not toxic. Nutritional Appearance: obese HEENT Reports dry mucous membranes HEENT Narrative: Head is atraumatic normocephalic. Ears are normal. Nares patent. No posterior pharyngeal erythema. Mouth ED: Yes dry mucous membranes Mouth: dry mucous membranes Eyes PERRL and EOMs intact bilaterally General Eye ED: Negative for pale conjunctiva or scleral icterus Neck No no lymphadenopathy, No supple and No no JVD Chest Wall inspection of chest normal Resp normal respiratory effort and clear to auscultation bilaterally Cardio regular rhythm, S1 normal heart sound, S2 normal heart sound and no murmurs Rate: tachycardic GI normal to inspection, nondistended, normoactive bowel sounds, non-tender and non-distended Palpation: soft Bladder / Kidney Exam: other Back/Spine no CVA tenderness Cervical Spine: Negative for cervical spine tenderness Thoracic Spine / Upper Back: paraspinal muscle tenderness; Negative for thoracic spinal tenderness Extremity Negative for normal to inspection General Extremety ED: Yes edema and tenderness General Extremity: edema Neuro oriented x3, CN's II-XII intact bilaterally and no sensory deficits noted Sensorium / Orientation: alert Motor Exam: strength 5/5 throughout Psych mental status grossly normal Skin No no rashes or lesions noted and No no wounds MDM MDM MDM Narrative Medical decision making narrative: Patient has history of MRSA cellulitis. He has evidence of cellulitis of the left leg and foot as well as abdomen. He was started on Zosyn and vancomycin. Sepsis order set was initiated. He did receive a fluid bolus. He will require admission to the hospital. He has been made aware of this. Appropriate blood work obtained to determine if patient has sepsis versus severe sepsis with organ dysfunction versus septic shock. Lab Data Attestation: I reviewed the patient's lab results. Lab results narrative: Will review prior labs to determine if patient's thrombocytopenia is new. If this says he has organ dysfunction with severe sepsis. Patient has history of thrombocytopenia. Lactate elevated 3.2. This indicates organ dysfunction. Hospitalist been paged for admission. Labs: Laboratory Results - last 24 hr 05/22/21 05/22/21 05/22/21 19:21 19:21 19:21 WBC 6.2 RBC 4.03 L Hgb 12.8 L Hct 37.8 L MCV 93.8 MCH 31.8 MCHC 33.9 RDW Std Deviation 48.6 H RDW Coeff of Ramya 14.1 Plt Count 42 L* MPV 12.3 H Immature Gran % (Auto) 0.600 Neut % (Auto) 85.2 H Lymph % (Auto) 6.8 L [place] % (Auto) 6.3 Eos % (Auto) 0.6 Baso % (Auto) 0.5 Absolute Neuts (auto) 5.3 Absolute Lymphs (auto) 0.42 L Nucleated RBC % 0 Differential Comment Diff Path Review May foll Platelet Estimate MKD DEC RBC Morphology NORM C+C PT 17.6 H INR 1.5 APTT 43.4 H Sodium 137 Potassium 4.0 Chloride 105 Carbon Dioxide 28.0 Anion Gap 4 L BUN 8 Creatinine 0.90 Estim Creat Clear Calc 121.27 Est GFR (MDRD) Af Amer 116 Est GFR (MDRD) Non-Af 96 BUN/Creatinine Ratio 8.9 L Glucose 235 H Lactic Acid Calcium 8.3 L Total Bilirubin 2.90 H AST 39 H ALT 36 Alkaline Phosphatase 104 Total Protein 6.4 Albumin 2.9 L Globulin 3.5 Albumin/Globulin Ratio 0.8 L Urine Color Urine Clarity Urine pH Ur Specific [place] Urine Protein Urine Glucose (UA) Urine Ketones Urine Occult Blood Urine Nitrite Urine Bilirubin Urine Urobilinogen Ur Leukocyte Esterase 05/22/21 05/22/21 19:21 20:19 WBC RBC Hgb Hct MCV MCH MCHC RDW Std Deviation RDW Coeff of Ramya Plt Count MPV Immature Gran % (Auto) Neut % (Auto) Lymph % (Auto) [place] % (Auto) Eos % (Auto) Baso % (Auto) Absolute Neuts (auto) Absolute Lymphs (auto) Nucleated RBC % Differential Comment Diff Path Review Platelet Estimate RBC Morphology PT INR APTT Sodium Potassium Chloride Carbon Dioxide Anion Gap BUN Creatinine Estim Creat Clear Calc Est GFR (MDRD) Af Amer Est GFR (MDRD) Non-Af BUN/Creatinine Ratio Glucose Lactic Acid 3.2 H* Calcium Total Bilirubin AST ALT Alkaline Phosphatase Total Protein Albumin Globulin Albumin/Globulin Ratio Urine Color [place] Urine Clarity Clear Urine pH 6.5 Ur Specific [place] 1.015 Urine Protein 30 H Urine Glucose (UA) 50 H Urine Ketones 5 H Urine Occult Blood 250 H Urine Nitrite Negative Urine Bilirubin Negative Urine Urobilinogen 4 H Ur Leukocyte Esterase 25 H EKG Initial EKG: Attestation: I personally reviewed and interpreted this EKG as follows: Interpretation: Sinus Rhythm (Normal sinus rhythm. EKG is normal. Ventricular rate 89. PA interval 156 ms. Cures duration 96 ms. QT duration 4 to 10 ms. [place] is normal.) Critical Care Time Critical Care Time: Yes Critical care time (excluding procedures): 30-74 minutes (32), Including time spent: (History, physical, documentation, interpretation of laboratory results, review of prior records, initiation of therapy for severe sepsis), Discussing w/Patient &/or Family/Secondary Special Education Teacher, Discussing w/Consultants and Arranging Admission or Transfer Discharge Plan Dx/Rx/DC Orders Clinical Impression: Severe sepsis with acute organ dysfunction, Thrombocytopenia, Cellulitis of left lower leg, Abdominal wall cellulitis Disposition Disposition: Acute Care [facility]
[2021-05-22] MEDS: 0.9% Normal Saline 1,000 ML 999 ML IV ×3 (19:25→23:59)
[2021-05-22] MEDS: Acetaminophen 325 MG Tablet 650 MG PO (19:25)
[2021-05-22 19:47] LABS: Absolute Lymphocyte Count 0.42 X10^3/uL (0.83-4.51); Absolute Neutrophil Count 5.3 X10^3/uL (2.0-7.7); Basophil# 0.03 X10^3/uL; Basophil% 0.5 % (0-1); Eosinophil# 0.04 X10^3/uL; Eosinophils% 0.6 % (0-5); Hematocrit 37.8 % (40-54); Hemoglobin 12.8 g/dL (13.0-16.5); Lymphocyte # 0.42 X10^3/ul (0.83-4.51); Lymphocyte % 6.8 % (19-41); Mean Corp Hgb Conc 33.9 g/dL (32-36); Mean Corpuscular Hgb 31.8 pg (27.0-32.0); Mean Corpuscular Volume 93.8 fL (80-94); Mean Platelet Vol. 12.3 fl (6.2-12.0); Monocyte# 0.39 X10^3/uL; Monocyte% 6.3 % (0-10); NRBC Flagged by Analyzer 0 % (0-5); Neutrophil # 5.27 X10^3/uL (2.7-7.7); Neutrophil % 85.2 % (47-70); POSITIVE COUNT YES; POSITIVE DIFFERENTIAL YES; RBC Distribution Width CV 14.1 % (11.6-14.6); RBC Distribution Width SD 48.6 fl (35.1-43.9); Red Blood Count 4.03 M/mm3 (4.6-6.2); White Blood Count 6.2 K/mm3 (4.4-11.0)
[2021-05-22 19:56] LABS: Differential Indicated SCAN CRITERIA MET; Platelet Count 42 K/mm3 (150-450)
[2021-05-22 19:57] LABS: International Normalized Ratio 1.5; Partial Thromboplast Time 43.4 Seconds (24.1-36.2); Prothrombin Time (Protime)PT. 17.6 SECONDS (11.7-14.9)
[2021-05-22 20:03] LABS: ALB/GLOB Ratio 0.8 RATIO (0.9-2.4); AST(SGOT) 39 U/L (15-37); Alanine Aminotransfer ALT/SGPT 36 U/L (16-61); Albumin, Serum 2.9 g/dL (3.2-5.0); Alkaline Phosphatase 104 U/L (45-117); Anion Gap 4 (5-15); BUN 8 mg/dL (7-18); BUN/Creat Ratio 8.9 RATIO (10-20); Calcium,Total 8.3 mg/dL (8.5-10.1); Chloride 105 mmol/L (98-107); EST Glomerular Filtration Rate 96 mL/min (>60); Est Glom Filt Rate - Afr Amer 116 mL/min (>60); Estimated Creatinine Clearance 121.27 ml/min; Globulin 3.5 g/dL (2.2-4.2); Glucose 235 mg/dL (74-106); Protein, Total 6.4 g/dL (6.4-8.2); Sodium Level 137 mmol/L (136-145)
[2021-05-22 20:19] LABS: Lactic Acid 3.2 mmol/L (0.4-1.9)
[2021-05-22 20:24] LABS: Bacteria 0 SEEN /hpf (None Seen); Mucous, Urine 0 SEEN /hpf (<or=2+)
[2021-05-22 20:26] LABS: Color, Urine Amber (Yellow); Glucose, Dipstick 50 mg/dl (Normal); Ketone-Dipstick 5 mg/dl (Negative); Leukocyte Esterase-Dipstick 25 /ul (Negative); Nitrite-Dipstick Negative (Negative); Occult Blood-Urine 250 /ul (Negative); Protein-Dipstick 30 mg/dl (Negative); Specific Gravity, Urine 1.015 (1.002-1.030); Urine Bilirubin Dipstick Negative (Negative); Urine Clarity Clear (Clear); Urine Urobilinogen 4 mg/dl (Normal); Urine pH 6.5 (5.0 - 8.0)
[2021-05-22 20:32] LABS: Platelet Estimate MKD DEC (ADEQ); Red Cell Morphology NORM C+C NORMAL (NORM C&C)
[2021-05-22 20:46] LABS: Red Blood Cells-Urine 10-25 SEEN /hpf (0-5); Squamous Epithelial Cells - UA 0-5 SEEN /hpf (0-5); White Blood Cells 0-5 SEEN /hpf (0-5)
--- NOTE | 2021-05-22 21:20 | PCM.HP.STD ---
HPI - General HPI Narrative LIBRADO CARLSON, is a 46 M with multiple comorbidities as listed below came to ER with his for left leg redness, swelling along with lower abdominal wall cellulitis, fever with chills and nausea for about 2 weeks. Patient returned from vacation in [place] and he was in swimming pool, and beach. He has history of Soriano treated cirrhosis with thrombocytopenia. Lower abdominal wall cellulitis started with scratch about 2 weeks ago and gradually spread out. Today noticed left leg redness which is spread proximally. Patient having fever with chills, T-max 101.8 Fahrenheit noted at home. He has mild nausea but denies other systemic symptoms of headache or shortness of breath. Denies new urinary tract symptoms including burning micturition alteration of bowel habit. No vomiting. In ED, T-max 101.1 F, heart rate 104/min, no tachypnea or hypoxia. Lactic acid 3.2. UA negative. He was last admitted between July 05, 2020- July 07, 2020 for sepsis secondary to left lower extremity cellulitis, atypical chest pain probably musculoskeletal. Patient quit smoking about 10 years ago. [facility] Medical History (Updated 05/22/21 @ 21:[address] Dariel Goel MD) Cellulitis Cellulitis of left ankle Diabetes mellitus with complication DVT (deep venous thrombosis) Edema Gout attack Intervertebral disc disorder with radiculopathy of lumbar region Intervertebral disc disorder with radiculopathy of lumbar region Liver cirrhosis secondary to SORIANO Lumbar disc disease with radiculopathy Lumbar disc prolapse with compression radiculopathy Malnutrition Morbid obesity due to excess calories Other intervertebral disc degeneration, lumbar region Other intervertebral disc degeneration, lumbar region Perianal abscess Perianal abscess Spinal stenosis of lumbar region with neurogenic claudication Spinal stenosis of lumbar region with neurogenic claudication Thrombocytopenia Ulcer of left ankle Ulcer of right lower extremity with fat layer exposed Venous insufficiency Home Medications methocarbamol 750 mg PO QHS 01/07/17 [History Last Taken 05/21/21] gabapentin 300 mg PO BID 02/11/19 [History Last Taken 05/22/21] metformin 850 mg PO BIDCM #60 tab 10/06/20 [Rx Last Taken 05/22/21] buprenorphine 1 patch TRANSDERMAL FR 04/05/21 [History Last Taken 05/17/21] lisinopril 10 mg PO DAILY 04/05/21 [History Last Taken 05/22/21] oxycodone 5 mg PO BID 04/05/21 [History Last Taken 05/22/21] tamsulosin 0.4 mg PO DAILY 04/05/21 [History Last Taken 05/21/21] dextroamphetamine-amphetamine [Adderall] 20 mg PO DAILY 05/22/21 [History Last Taken 05/08/21] Allergy/AdvReac Type Severity Reaction Status Date / Time No Known Allergies Allergy Verified 05/22/21 18:03 Surgical History history incision and drainage perianal abscess (~10/05/20) Social History household members: spouse and children Smoking Status: Former smoker alcohol intake: current alcohol intake frequency: other substance use type: does not use ROS ROS Narrative Constitutional: Reports fever, malaise and nausea as mentioned HPI HEENT: Reports systems reviewed and no addt'l complaints, except as documented Respiratory/Chest: Denies chest pain, shortness of breath at rest or with exertion Gastrointestinal: No ascites. Denies coffee ground emesis, hematemesis or vomiting Genitourinary: Denies burning urination or new urinary tract symptoms Musculoskeletal: No joint pain and limited range of motion Neurologic: Denies seizure-like activity skin: Rash as mentioned in HPI Endocrinology: Reports systems reviewed and no addt'l complaints, except as documented Hematologic/Lymphatic: Reports systems reviewed and no addt'l complaints, except as documented Rest 12 ROS are negative except as mentioned in HPI Vital Signs Vital Signs Vital Signs: 05/22/21 18:01 05/22/21 18:03 05/22/21 19:04 Temperature 100 F H 100 F H 101.1 F H Temperature Source Temporal Temporal Oral Pulse Rate 104 H 104 H 91 Respiratory Rate 20 H 20 H 16 Blood Pressure 147/66 H 147/66 H 143/58 H Blood Pressure Mean 93 93 86 Pulse Ox 97 97 94 Oxygen Delivery Method Room Air Room Air Room Air 05/22/21 19:24 05/22/21 19:35 05/22/21 20:16 Temperature 101.1 F H 101.2 F H Temperature Source Oral Oral Pulse Rate 90 Respiratory Rate 19 H Blood Pressure 144/65 H Blood Pressure Mean 91 Pulse Ox 98 98 Oxygen Delivery Method Room Air Room Air Weight Weight: 350 lb Body Mass Index (BMI) 43.7 Physical Exam Narrative General: Alert, Oriented x3, Cooperative HEENT: Atraumatic, PERRLA, EOMI, Normocephalic Oral: Oral mucosa dry. No Gingival or Mucosal Lesions/ Ulcerations Neck: Supple, No JVD, Negative Carotid Bruits Lungs: Air entry diminished in bilateral lung bases. No crepitation/rhonchi Cardiovascular: Regular rate, Regular Rhythm, Normal S1, Normal S2, No murmurs Abdomen: Bowel Sounds Present, Soft, Non Tender, Non-Distended : No renal angle tenderness. No suprapubic tenderness. Extremities: No edema, Capillary Refill Less than 3 Seconds Skin: Redness, mild tenderness over lower abdominal wall with a scratch lemuel. No obvious abscess. Erythema, petechial rash, mild induration and swelling over left lower leg below knee. Musculoskeletal: No Tenderness to Palpation of Joints or Extremities Neurological: Cranial nerves II-XII grossly intact, DTR 2+/4 and Symmetrical, Neuro grossly intact Psych/Mental Status: Normal Affect, Appropriate. Results Lab / Micro Data Result Diagrams: 05/22/21 19:21 05/22/21 19:21 Labs: Laboratory Results - last 24 hr 05/22/21 19:21: WBC 6.2, RBC 4.03 L, Hgb 12.8 L, Hct 37.8 L, MCV 93.8, MCH 31.8, MCHC 33.9, RDW Std Deviation 48.6 H, RDW Coeff of Ramya 14.1, Plt Count 42 L*, MPV 12.3 H, Immature Gran % (Auto) 0.600, Neut % (Auto) 85.2 H, Lymph % (Auto) 6.8 L, [place] % (Auto) 6.3, Eos % (Auto) 0.6, Baso % (Auto) 0.5, Absolute Neuts (auto) 5.3, Absolute Lymphs (auto) 0.42 L, Nucleated RBC % 0, Differential Comment , Diff Path Review May , Platelet Estimate MKD DEC, RBC Morphology NORM C+C 05/22/21 19:21: PT 17.6 H, INR 1.5, APTT 43.4 H 05/22/21 19:21: Sodium 137, Potassium 4.0, Chloride 105, Carbon Dioxide 28.0, Anion Gap 4 L, BUN 8, Creatinine 0.90, Estim Creat Clear Calc 121.27, Est GFR (MDRD) Af Amer 116, Est GFR (MDRD) Non-Af 96, BUN/Creatinine Ratio 8.9 L, Glucose 235 H, Calcium 8.3 L, Total Bilirubin 2.90 H, AST 39 H, ALT 36, Alkaline Phosphatase 104, Total Protein 6.4, Albumin 2.9 L, Globulin 3.5, Albumin/Globulin Ratio 0.8 L 05/22/21 19:21: Lactic Acid 3.2 H* 05/22/21 20:19: Urine Color [place], Urine Clarity Clear, Urine pH 6.5, Ur Specific [place] 1.015, Urine Protein 30 H, Urine Glucose (UA) 50 H, Urine Ketones 5 H, Urine Occult Blood 250 H, Urine Nitrite Negative, Urine Bilirubin Negative, Urine Urobilinogen 4 H, Ur Leukocyte Esterase 25 H, Urine RBC 10-25 SEEN, Urine WBC 0-5 SEEN, Ur Squamous Epith Cells 0-5 SEEN, Urine Bacteria 0 SEEN, Urine Mucus 0 SEEN Assessment & Plan Assessment/Plan (1) Abdominal wall cellulitis: (2) Cellulitis of left lower leg: (3) Severe sepsis: PLAN: This 39-year-old gentleman admitted with severe sepsis secondary to abdominal wall and left leg cellulitis. 1. Severe sepsis (fever, tachycardia, lactic acidosis) secondary to abdominal wall and left leg cellulitis: Patient is being admitted in ICU as per severe sepsis protocol. Started on broad-spectrum antibiotic IV vancomycin and Zosyn in ED. With history of cirrhosis, exposure to sea water, skin infection/cellulitis there is risk for vibrio infection. Therefore, doxycycline added. Continuous Improvement [place] and ID consult. IV fluid normal saline bolus as per severe sepsis protocol with strict I&O monitoring and discontinue if fluid overload. Total bilirubin is elevated 2.9, baseline around 1.4, INR 1.5, baseline 1.2 suggestive of liver endorgan dysfunction exacerbated by severe sepsis 2. Soriano related cirrhosis with thrombocytopenia: Currently patient does not have ascites or GI bleed or other decompensation except thrombocytopenia. Watch for fluid overload. 3. Hypertension: Hold antihypertensive medication as patient is in severe sepsis. 4. Chronic pain secondary to bulging disks in his lower back: Hold muscle relaxant. Patient follows Dr. Beck and is on OxyIR. 5. BPH: On Flomax. DVT: SCDs. Pharmacological prophylaxis contraindicated in view of thrombocytopenia. Living will/advanced directive/end of life care: Patient does not have living will or advanced directive. His is next to kin. After discussion of benefits/risks procedures involved with full code, DNR CC arrest and DNR CC, the patient opted for full code. Patient does want artificial life support including intubation, tube feed, ventilator and/chest compression, central venous catheter, vasopressor and DC shock if needed Total time spent in [id number] encounter in discussion of advanced directive 16 minutes. Charges/Coding Visit Charges Inpatient E&M: 32231 Init Hosp L3 Procedures Hospitalists Procedures: 42189 Advncd Care Plan 30 Min
[2021-05-22 21:50] LABS: CPK Total, Creatine Kinase 75 U/L (39-308); Magnesium 1.5 mg/dL (1.6-2.6)
[2021-05-22] MEDS: Doxycycline 100 MG CAPSULE PO (23:13)
[2021-05-22] MEDS: Gabapentin 300 MG Capsule PO (23:13)
[2021-05-22] MEDS: oxyCODONE 5 MG Tablet PO (23:28)
[2021-05-22 23:36] LABS: Bedside Glucose 166 mg/dL (70-110)
[2021-05-22 23:40] LABS: Reflex Lactate? Y
--- NOTE | 2021-05-22 23:43 | PCM.RX.CS ---
Consult Pharmacy has been consulted to manage selected antiobiotic: Vancomycin Type of Consult: New start Suspected Infection: Sepsis Labs: Sodium 137 mmol/L (136-145) 05/22/21 19:21 Potassium 4.0 mmol/L (3.5-5.1) 05/22/21 19:21 Chloride 105 mmol/L (98-107) 05/22/21 19:21 Carbon Dioxide 28.0 mmol/L (21.0-32.0) 05/22/21 19:21 Anion Gap 4 (5-15) L 05/22/21 19:21 BUN 8 mg/dL (7-18) 05/22/21 19:21 Creatinine 0.90 mg/dL (0.70-1.30) 05/22/21 19:21 Est GFR (MDRD) Af Amer 116 mL/min (>60) 05/22/21 19:21 Est GFR (MDRD) Non-Af 96 mL/min (>60) 05/22/21 19:21 BUN/Creatinine Ratio 8.9 RATIO (10-20) L 05/22/21 19:21 Glucose 235 mg/dL (74-106) H 05/22/21 19:21 Microbiology: Microbiology 05/22/21 21:27 Mucosa - Nose SARS-CoV-2 Antigen (Rapid) - Final Weight used for dosin.4 kg Estimated Creatinine Clearance: 165 Goal Trough: 15-20 mcg/mL Pharmacy Plan for Drug Dosing: Pharmacy Service will continue to monitor and adjust dosing as required. Medications Vancomycin HCl 1,500 mg/ (Sodium Chloride) 530 mls @ 250 mls/hr IV Q8H OPAL Discontinued Medications Vancomycin HCl 2,000 mg/ (Sodium Chloride) 540 mls @ 250 mls/hr IV X1 ONE Stop: 05/22/21 21:23 Last Admin: 05/22/21 23:23 Dose: Infused Documented by: Follow-Up Labs: Trough Vancomycin Labs to be done on [date and time ordered]: 05/23 @ 1930
[2021-05-23] VITALS (12 sets, daily range): BP systolic 101–154; BP diastolic 48–95; PULSE 51–96; RESP 15–26; TEMP 36.2–37.2; O2SAT 92–97
[2021-05-23 01:03] LABS: Lactic Acid 1.5 mmol/L (0.4-1.9)
[2021-05-23] MEDS: 0.9% Normal Saline 1,000 ML 999 ML IV ×2 (01:22→02:27)
[2021-05-23] MEDS: oxyCODONE 5 MG Tablet PO ×4 (04:46→19:58)
[2021-05-23] MEDS: 0.9% Normal Saline 1,000 ML 75 ML IV (04:46)
[2021-05-23 05:13] LABS: Absolute Lymphocyte Count 0.75 X10^3/uL (0.83-4.51); Absolute Neutrophil Count 3.3 X10^3/uL (2.0-7.7); Basophil# 0.03 X10^3/uL; Basophil% 0.6 % (0-1); Eosinophil# 0.07 X10^3/uL; Eosinophils% 1.5 % (0-5); Hematocrit 33.9 % (40-54); Hemoglobin 11.5 g/dL (13.0-16.5); Lymphocyte # 0.75 X10^3/ul (0.83-4.51); Lymphocyte % 16.1 % (19-41); Mean Corp Hgb Conc 33.9 g/dL (32-36); Mean Corpuscular Hgb 31.9 pg (27.0-32.0); Mean Corpuscular Volume 94.2 fL (80-94); Mean Platelet Vol. 13.1 fl (6.2-12.0); Monocyte# 0.49 X10^3/uL; Monocyte% 10.5 % (0-10); NRBC Flagged by Analyzer 0 % (0-5); Neutrophil # 3.26 X10^3/uL (2.7-7.7); Neutrophil % 70.2 % (47-70); POSITIVE COUNT YES; RBC Distribution Width CV 14.1 % (11.6-14.6); RBC Distribution Width SD 48.4 fl (35.1-43.9); White Blood Count 4.7 K/mm3 (4.4-11.0)
[2021-05-23 05:15] LABS: Differential Indicated SCAN CRITERIA MET; Platelet Count 37 K/mm3 (150-450)
[2021-05-23 05:31] LABS: AST(SGOT) 32 U/L (15-37); Alanine Aminotransfer ALT/SGPT 30 U/L (16-61); Albumin, Serum 2.8 g/dL (3.2-5.0); Alkaline Phosphatase 93 U/L (45-117); Anion Gap 4 (5-15); BUN 7 mg/dL (7-18); BUN/Creat Ratio 10.8 RATIO (10-20); Calcium,Total 7.4 mg/dL (8.5-10.1); Chloride 109 mmol/L (98-107); Creatinine, Serum 0.65 mg/dL (0.70-1.30); EST Glomerular Filtration Rate 140 mL/min (>60); Est Glom Filt Rate - Afr Amer 169 mL/min (>60); Estimated Creatinine Clearance 167.92 ml/min; Globulin 2.8 g/dL (2.2-4.2); Glucose 144 mg/dL (74-106); Phosphorus 2.2 mg/dL (2.5-4.9); Potassium 3.7 mmol/L (3.5-5.1); Protein, Total 5.6 g/dL (6.4-8.2); Sodium Level 139 mmol/L (136-145)
--- NOTE | 2021-05-23 05:39 | CON.PCM.CC_ITS ---
Assessment & Plan Assessment/Plan (1) Cellulitis: QUALIFIERS: Laterality: right Site of cellulitis: extremity Site of cellulitis of extremity: lower extremity Qualified Code(s): L03.115 - Cellulitis of right lower limb PLAN: RECOMMENDATIONS: 1. Discontinue p.o. doxycycline and continue IV antimicrobials as ordered. 2. The patient remains hemodynamically stable. Okay to discontinue supplemental IV fluids. 3. Encourage incentive spirometer use and mobilize patient as tolerated. 4. The patient is medically stable for transfer out of the intensive care unit. 5. Given the patient's lack of ICU or pulmonary needs, will sign off. Please call with any additional questions. IMPRESSIONS: 1. Combined abdominal wall and lower extremity cellulitis The patient presented to the hospital with a right lower quadrant abdominal wound with surrounding cellulitis and induration along with left lower extremity cellulitis. The patient did spike a fever overnight with a T-max of 101.2 ?F. The patient has remained hemodynamically stable. Lactic acidemia has resolved. Underlying cellulitis appears to be improving in light of antimicrobial therapy. Plan to continue antimicrobials as ordered. Continuous IV fluids can be discontinued. Based upon my clinical evaluation of the patient at the bedside he does not appear septic. Therefore, sepsis has been ruled out. 2. Chronic thrombocytopenia Likely secondary to underlying liver disease. Platelet count appears stable when compared to prior lab values in our system. No indication for transfusion. 3. History of nonalcoholic fatty liver disease/obesity/hypertension/chronic pain syndrome Complicates care, management, recovery and prognosis. Continue home medications as indicated. Encourage incentive spirometer use and mobilize patient as tolerated. This note was generated with [email or web address] dictation software. It may contain incorrect words, spelling, and punctuation that were not noted in checking the note before signing. HPI Consult Data Date of Consult: 05/23/21 HPI Narrative Reason for Consultation: Sepsis due to cellulitis HPI Narrative: The patient is a 46-year-old male, with a history as outlined below, who presented to the emergency department on May 22 with fevers, chills and concerns for cellulitis. The patient does report a history of recurrent lower extremity cellulitis. He stated that his last lower extremity infection occurred approximately 1 year ago. The patient recently was on a beach vacation and stated that he noticed a small wound with surrounding cellulitis developing in his right lower abdominal quadrant. The area became progressively erythematous and indurated. He then went on to develop subjective fevers and chills. The patient is a non-smoker. He does confirm a history of obstructive sleep apnea, but reports noncompliance with home Pap therapy. On presentation to the emergency department, the patient was noted to be febrile tachycardic and tachypneic. Laboratory evaluation revealed no evidence of a leukocytosis. Although the patient was thrombocytopenic, this is a chronic finding. Coagulation profile revealed an INR of 1.5. Chemistry profile rev ealed a lactate of 3.2. Total bili was elevated to 2.9. Urine analysis was unremarkable. Rapid coronavirus antigen testing was negative. Blood cultures were obtained. The patient did receive IV fluid resuscitation along with broad- spectrum antimicrobials. He was subsequently admitted to the medical intensive care unit for further management. 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 Lumbar disc disease with radiculopathy Lumbar disc prolapse with compression radiculopathy Malnutrition Morbid obesity due to excess calories Other intervertebral disc degeneration, lumbar region Other intervertebral disc degeneration, lumbar region Perianal abscess Perianal abscess Spinal stenosis of lumbar region with neurogenic claudication Spinal stenosis of lumbar region with neurogenic claudication Thrombocytopenia Ulcer of left ankle Ulcer of right lower extremity with fat layer exposed Venous insufficiency Home Medications methocarbamol 750 mg PO QHS 01/07/17 [History Last Taken 05/21/21] gabapentin 300 mg PO BID 02/11/19 [History Last Taken 05/22/21] metformin 850 mg PO BIDCM #60 tab 10/06/20 [Rx Last Taken 05/22/21] buprenorphine 1 patch TRANSDERMAL FR 04/05/21 [History Last Taken 05/17/21] lisinopril 10 mg PO DAILY 04/05/21 [History Last Taken 05/22/21] oxycodone 5 mg PO BID 04/05/21 [History Last Taken 05/22/21] tamsulosin 0.4 mg PO DAILY 04/05/21 [History Last Taken 05/21/21] dextroamphetamine-amphetamine [Adderall] 20 mg PO DAILY 05/22/21 [History Last Taken 05/08/21] Allergy/AdvReac Type Severity Reaction Status Date / Time No Known Allergies Allergy Verified 05/22/21 18:03 Surgical History (Updated 05/22/21 @ 22:57 by Estela Arcos) history incision and drainage perianal abscess (~10/05/20) History of gastric surgery Social History household members: spouse and children Smoking Status: Former smoker alcohol intake: current alcohol intake frequency: other substance use type: does not use ROS Constitutional Constitutional: Reports chills and fever(s) Eyes Eyes: Denies blurry vision or change in vision ENT HEENT: Denies dizziness, epistaxis, headache(s), loss taste/smell or nasal congestion Cardiovascular Cardiovascular: Reports edema; Denies chest pain, dizziness or dyspnea Respiratory/Chest Respiratory/Chest: Reports snoring; Denies dyspnea Gastrointestinal Gastrointestinal: Denies abdominal pain, diarrhea, nausea or vomiting Genitourinary Genitourinary: Denies difficulty urinating Musculoskeletal Musculoskeletal: Reports back pain; Denies arthralgias Integumentary Integumentary: Reports rash Neurologic Neurologic: Denies abnormal gait or abnormal speech Psychiatric Psychiatric: Reports anxiety Endocrine Endocrinology: Denies fatigue or polydipsia Hematologic/Lymphatic Hematologic/Lymphatic: Denies easy bleeding or easy bruising Physical Exam Const alert, oriented x3 and no apparent distress Constitutional Narrative: Nontoxic in appearance, sitting upright in bed. General Appearance: cooperative Nutritional Appearance: morbidly obese HEENT normocephalic, head/scalp atraumatic and moist oral mucous membranes Eyes PERRL, EOMs intact bilaterally and conjunctivae normal Neck supple General: trachea midline Resp normal respiratory effort and no use of accessory muscles Effort and Inspection: able to speak in complete sentences Auscultation: Negative for rales, rhonchi or wheezes Cardio regular rate and regular rhythm GI normal to inspection, nondistended, normoactive bowel sounds Extremity General Extremity: edema left lower extremity Skin Skin Narrative: Small healed skin defect noted in right lower abdominal wall with surrounding erythema and resolving induration. Resolving pretibial erythema is noted in the left lower extremity as well. Neuro oriented x3, CN's II-XII intact bilaterally, moves all extremities and no focal motor deficits Psych cooperative and affect normal Lab / Micro Data Result Diagrams: 05/23/21 05:00 05/23/21 05:00 Labs: Laboratory Results - last 24 hr 05/22/21 16:21: Magnesium 1.5 L, Total Creatine Kinase 75 05/22/21 19:21: WBC 6.2, RBC 4.03 L, Hgb 12.8 L, Hct 37.8 L, MCV 93.8, MCH 31.8, MCHC 33.9, RDW Std Deviation 48.6 H, RDW Coeff of Ramya 14.1, Plt Count 42 L*, MPV 12.3 H, Immature Gran % (Auto) 0.600, Neut % (Auto) 85.2 H, Lymph % (Auto) 6.8 L , [place] % (Auto) 6.3, Eos % (Auto) 0.6, Baso % (Auto) 0.5, Absolute Neuts (auto) 5.3, Absolute Lymphs (auto) 0.42 L, Nucleated RBC % 0, Differential Comment , Diff Path Review May elly, Platelet Estimate MKD DEC, RBC Morphology NORM C+C 05/22/21 19:21: PT 17.6 H, INR 1.5, APTT 43.4 H 05/22/21 19:21: Sodium 137, Potassium 4.0, Chloride 105, Carbon Dioxide 28.0, Anion Gap 4 L, BUN 8, Creatinine 0.90, Estim Creat Clear Calc 121.27, Est GFR (MDRD) Af Amer 116, Est GFR (MDRD) Non-Af 96, BUN/Creatinine Ratio 8.9 L, Glucose 235 H, Calcium 8.3 L, Total Bilirubin 2.90 H, AST 39 H, ALT 36, Alkaline Phosphatase 104, Total Protein 6.4, Albumin 2.9 L, Globulin 3.5, Albumin/Globulin Ratio 0.8 L 05/22/21 19:21: Lactic Acid 3.2 H* 05/22/21 20:19: Urine Color Mad[place], Urine Clarity Clear, Urine pH 6.5, Ur Specific [place] 1.015, Urine Protein 30 H, Urine Glucose (UA) 50 H, Urine [place] 5 H, Urine Occult Blood 250 H, Urine Nitrite Negative, Urine Bilirubin Negative, Urine Urobilinogen 4 H, Ur Leukocyte Esterase 25 H, Urine RBC 10-25 SEEN, Urine WBC 0-5 SEEN, Ur Squamous Epith Cells 0-5 SEEN, Urine Bacteria 0 SEEN, Urine Mucus 0 SEEN 05/22/21 23:18: POC Glucose 166 H 05/23/21 00:08: Lactic Acid 1.5 05/23/21 05:00: WBC 4.7, RBC 3.60 L, Hgb 11.5 L, Hct 33.9 L, MCV 94.2 H, MCH 31.9, MCHC 33.9, RDW Std Deviation 48.4 H, RDW Coeff of Ramya 14.1, Plt Count 37 L*, MPV 13.1 H, Immature Gran % (Auto) 1.100 H, Neut % (Auto) 70.2 H, Lymph % (Auto) 16.1 L, [place] % (Auto) 10.5 H, Eos % (Auto) 1.5, Baso % (Auto) 0.6, Absolute Neuts (auto) 3.3, Absolute Lymphs (auto) 0.75 L, Nucleated RBC % 0 05/23/21 05:00: Sodium 139, Potassium 3.7, Chloride 109 H, Carbon Dioxide 26.0, Anion Gap 4 L, BUN 7, Creatinine 0.65 L, Estim Creat Clear Calc 167.92, Est GFR (MDRD) Af Amer 169, Est GFR (MDRD) Non-Af 140, BUN/Creatinine Ratio 10.8, Glucose 144 H, Calcium 7.4 L, Phosphorus 2.2 L, Total Bilirubin 2.60 H, AST 32, ALT 30, Alkaline Phosphatase 93, Total Protein 5.6 L, Albumin 2.8 L, Globulin 2.8, Albumin/Globulin Ratio 1.0 Micro: Microbiology 05/22/21 21:27 Mucosa - Nose SARS-CoV-2 Antigen (Rapid) - Final Charges/Coding Visit Charges Inpatient E&M: 93257 Init Hosp L3
--- NOTE | 2021-05-23 07:16 | PN.HOSP_ITS ---
Subjective Subjective Patient is a 39-year-old with multiple comorbidities including obesity with BMI of 45.2, diabetes mellitus type 2, nonalcoholic fatty liver disease who presented with erythema and redness involving anterior abdominal wall as well as left lower extremity. An assessment of severe sepsis secondary to cellulitis of anterior abdominal wall and left lower extremities made admitted to the intensive care unit for subsequent ma Objective Data Objective Data Vital Signs: Vital Signs Temp Pulse Resp BP Pulse Ox 97.1 F L 51 L 26 H 101/73 92 05/23/21 06:00 05/23/21 06:00 05/23/21 06:00 05/23/21 06:00 05/23/21 06:00 Oxygen Flow Rate (L/min) 50 Oxygen Delivery Method Airvo Weight: 164.2 kg Body Mass Index (BMI) 44.4 Intake & Output: Intake and Output for Last 24 Hours 05/21/21 05/22/21 05/23/21 23:59 23:59 23:59 Intake Total 2640 / 2840 3330 / 3330 Output Total 890 / 890 Balance 2640 / 2520 2440 / 2440 Lab / Micro Data Result Diagrams: 05/23/21 05:00 05/23/21 05:00 Labs: Laboratory Results - last 24 hr 05/22/21 16:21: Magnesium 1.5 L, Total Creatine Kinase 75 05/22/21 19:21: WBC 6.2, RBC 4.03 L, Hgb 12.8 L, Hct 37.8 L, MCV 93.8, MCH 31.8, MCHC 33.9, RDW Std Deviation 48.6 H, RDW Coeff of Ramya 14.1, Plt Count 42 L*, MPV 12.3 H, Immature Gran % (Auto) 0.600, Neut % (Auto) 85.2 H, Lymph % (Auto) 6.8 L , [place] % (Auto) 6.3, Eos % (Auto) 0.6, Baso % (Auto) 0.5, Absolute Neuts (auto) 5.3, Absolute Lymphs (auto) 0.42 L, Nucleated RBC % 0, Differential Comment , Diff Path Review May , Platelet Estimate MKD DEC, RBC Morphology NORM C+C 05/22/21 19:21: PT 17.6 H, INR 1.5, APTT 43.4 H 05/22/21 19:21: Sodium 137, Potassium 4.0, Chloride 105, Carbon Dioxide 28.0, Anion Gap 4 L, BUN 8, Creatinine 0.90, Estim Creat Clear Calc 121.27, Est GFR (MDRD) Af Amer 116, Est GFR (MDRD) Non-Af 96, BUN/Creatinine Ratio 8.9 L, Glucose 235 H, Calcium 8.3 L, Total Bilirubin 2.90 H, AST 39 H, ALT 36, Alkaline Phosphatase 104, Total Protein 6.4, Albumin 2.9 L, Globulin 3.5, A lbumin/Globulin Ratio 0.8 L 05/22/21 19:21: Lactic Acid 3.2 H* 05/22/21 20:19: Urine Color Mad[place], Urine Clarity Clear, Urine pH 6.5, Ur Specific [place] 1.015, Urine Protein 30 H, Urine Glucose (UA) 50 H, Urine Ketones 5 H, Urine Occult Blood 250 H, Urine Nitrite Negative, Urine Bilirubin Negative, Urine Urobilinogen 4 H, Ur Leukocyte Esterase 25 H, Urine RBC 10-25 SEEN, Urine WBC 0-5 SEEN, Ur Squamous Epith Cells 0-5 SEEN, Urine Bacteria 0 SEEN, Urine Mucus 0 SEEN 05/22/21 23:18: POC Glucose 166 H 05/23/21 00:08: Lactic Acid 1.5 05/23/21 05:00: WBC 4.7, RBC 3.60 L, Hgb 11.5 L, Hct 33.9 L, MCV 94.2 H, MCH 31.9, MCHC 33.9, RDW Std Deviation 48.4 H, RDW Coeff of Ramya 14.1, Plt Count 37 L*, MPV 13.1 H, Immature Gran % (Auto) 1.100 H, Neut % (Auto) 70.2 H, Lymph % ( Auto) 16.1 L, [place] % (Auto) 10.5 H, Eos % (Auto) 1.5, Baso % (Auto) 0.6, Absolute Neuts (auto) 3.3, Absolute Lymphs (auto) 0.75 L, Nucleated RBC % 0, Diff Path Review February05/23/21 05:00: Sodium 139, Potassium 3.7, Chloride 109 H, Carbon Dioxide 26.0, Anion Gap 4 L, BUN 7, Creatinine 0.65 L, Estim Creat Clear Calc 167.92, Est GFR (MDRD) Af Amer 169, Est GFR (MDRD) Non-Af 140, BUN/Creatinine Ratio 10.8, Glucose 144 H, Calcium 7.4 L, Phosphorus 2.2 L, Total Bilirubin 2.60 H, AST 32, ALT 30, Alkaline Phosphatase 93, Total Protein 5.6 L, Albumin 2.8 L, Globulin 2.8, Albumin/Globulin Ratio 1.0 Micro: Microbiology 05/22/21 21:27 Mucosa - Nose SARS-CoV-2 Antigen (Rapid) - Final Physical Exam Narrative GENERAL: cooperative HEENT: Atraumatic; EYES; Anicteric, Normal Conjunctiva NECK; supple, normal thyroid, RESPIRATORY: Diminished to auscultation CARDIOVASCULAR: Regular S1 S2, GI: soft, normoactive bowel sounds, : No Renal angle tenderness; EXTREMITIES: No edema, no clubbing, MUSCULOSKELETAL: no muscle waisting NEURO: Awake; no lateralizing signs. SKIN: An area of erythema and warmth around the periumbilical region and anterior surface of the left lower extremity PSYCH; Flat affect Assessment & Plan Assessment/Plan (1) Abdominal wall cellulitis: (2) Cellulitis of left lower leg: (3) Severe sepsis: PLAN: Patient is a 39-year-old with multiple comorbidities including obesity with BMI of 45.2, diabetes mellitus type 2, nonalcoholic fatty liver disease who presented with erythema and redness involving anterior abdominal wall as well as left lower extremity. An assessment of severe sepsis secondary to cellulitis of anterior abdominal wall and left lower extremities made admitted to the intensive care unit for subsequent management 1. Severe sepsis Secondary to anterior abdominal wall cellulitis as well as left lower leg cellulitis. Patient was admitted to the intensive care initially managed per protocol with aggressive IV fluid resuscitation, broad-spectrum antibiotic therapy with vancomycin and Zosyn after cultures have been obtained subsequent monitoring of patient's progress with serial lactic acid levels 2. Diabetes mellitus type II -patient's oral hypoglycemics held. Placed on long acting insulin, Accu-Cheks a.c. and at bedtime and covered with sliding scale insulin 3. Nonalcoholic fatty liver disease ?With complications including thrombocytopenia, monitoring with daily CBCs 4. Thrombocytopenia secondary to nonalcoholic fatty liver disease ?Monitoring with daily CBCs patient currently does not have any bleeding episodes 5. Obesity with BMI of 45.2 ?Weight loss advised 6. BPH ?Symptoms controlled with tamsulosin discontinued 7. Essential hypertension ?Patient blood pressure medications were held on admission. Has since been resumed 8. Chronic pain syndrome -secondary to bulging disc in his lower back. Patient is on gabapentin as well as chronic narcotics 9. DVT prophylaxis ?Chemoprophylaxis contraindicated in view of patient low platelet counts would encourage early ambulation Charges/Coding Visit Charges Inpatient E&M: 36761 Subs Hosp L3
[2021-05-23 07:36] LABS: Hemoglobin A1c 6.3 % (3.8-5.6)
[2021-05-23] MEDS: Tamsulosin HCl 0.4 MG Capsule PO (08:09)
[2021-05-23] MEDS: Gabapentin 300 MG Capsule PO ×2 (08:09→22:07)
[2021-05-23] MEDS: Doxycycline 100 MG CAPSULE PO (08:09)
[2021-05-23] MEDS: Na Biphos/Potassium Phosphate PACKET 1 PACKET PO ×3 (08:11→22:37)
--- NOTE | 2021-05-23 09:09 | NURSING ---
report called to med-surg 3 for transfer to room 325, transferred per chair with belongings
[2021-05-23 10:54] LABS: Pathologist Review Reviewed
[2021-05-23 10:58] LABS: Pathologist Review Reviewed
--- NOTE | 2021-05-23 11:00 | CASEMGMT ---
RN AIDAN Face to Face with patient for initial transition planning/care coordination assessment. RN CM introduced self and role at [facility]. Patient lying in bed, alert and oriented. Patient willing to participate in assessment and is able to answer all questions appropriately. Care providers, pharmacy, and demographics verified. Patient wishes to discharge home, denies need for home health at this time. Patient states he has no further needs or concerns at this time. CM to follow for discharge planning needs that may arise. 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 3 steps to enter the home. Patient states he is independent at home. Transportation: self/ DME/HHC: Patient denies DME or previous HHC Disposition Plan: Patient to discharge home with family support and follow-up plans in place. Mitzi FERRELL, RN, CM
[2021-05-23] MEDS: Lisinopril 10 MG Tablet PO (11:45)
[2021-05-23] MEDS: Insulin Lispro 100 UNIT/ML INSULN.PEN SC ×3 (11:47→22:03)
[2021-05-23 11:56] LABS: Bedside Glucose 259 mg/dL (70-110)
--- NOTE | 2021-05-23 14:19 | CASEMGMT ---
Palliative screening tool completed for [facility] 3. Patient does not meet criteria at this time.
--- NOTE | 2021-05-23 15:58 | CON.PCM.ID_ITS ---
Assessment & Plan Assessment/Plan (1) Severe sepsis: PLAN: Will check BLE doppler. Cont vanc/zosyn for now. Is at risk for pseudomonas with recent water exposures while on vacation in [place]. Will follow, thank you, d/w Dr. 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 Was in [place] on vacation, but did not go in ocean, did swim in hotel pool/water park. Has gotten covid vaccine. Came to ED, lactic acid elevated, fever to 101.2. Admitted on vanc/zosyn/doxy. Feeling a little better today. Full ROS performed and neg except as noted above. 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 Lumbar disc disease with radiculopathy Lumbar disc prolapse with compression radiculopathy Malnutrition Morbid obesity due to excess calories Other intervertebral disc degeneration, lumbar region Other intervertebral disc degeneration, lumbar region Perianal abscess Perianal abscess Spinal stenosis of lumbar region with neurogenic claudication Spinal stenosis of lumbar region with neurogenic claudication Thrombocytopenia Ulcer of left ankle Ulcer of right lower extremity with fat layer exposed Venous insufficiency Home Medications methocarbamol 750 mg PO QHS 01/07/17 [History Last Taken 05/21/21] gabapentin 300 mg PO BID 02/11/19 [History Last Taken 05/22/21] metformin 850 mg PO BIDCM #60 tab 10/06/20 [Rx Last Taken 05/22/21] buprenorphine 1 patch TRANSDERMAL FR 04/05/21 [History Last Taken 05/17/21] lisinopril 10 mg PO DAILY 04/05/21 [History Last Taken 05/22/21] oxycodone 5 mg PO BID 04/05/21 [History Last Taken 05/22/21] tamsulosin 0.4 mg PO DAILY 04/05/21 [History Last Taken 05/21/21] dextroamphetamine-amphetamine [Adderall] 20 mg PO DAILY 05/22/21 [History Last Taken 05/08/21] Allergy/AdvReac Type Severity Reaction Status Date / Time No Known Allergies Allergy Verified 05/22/21 18:03 Surgical History (Updated 05/22/21 @ 22:57 by Estela Arcos) history incision and drainage perianal abscess (~10/05/20) History of gastric surgery Social History household members: spouse and children Smoking Status: Former smoker alcohol intake: current alcohol intake frequency: other substance use type: does not use Physical Exam Const alert and oriented x3 General Appearance: cooperative HEENT normocephalic and head/scalp atraumatic Eyes PERRL and EOMs intact bilaterally Neck supple and No nodes Resp normal air movement and clear to auscultation bilaterally Cardio regular rate and regular rhythm GI non-tender; Negative for non-distended Extremity General Extremity: edema Skin Skin Narrative: Redness/warmth/tenderness on RLQ and BLE Neuro CN's II-XII intact bilaterally Medical Records Data Medical Nutrition Assessment Dietitian: Nutrition Therapy Diagnosis Start: 05/23/21 10:01 Freq: Status: Active Protocol: Document 05/23/21 10:30 AG (Rec: 05/23/21 10:30 [id number]) Nutrition Malnutrition Evidence of Malnutrition Exists No Intake Problem Decreased Nutrient Needs (specify) Etiology (sodium) r/t DEAN cirrhosis Signs/Symptoms as evidenced by recommended 2000mg sodium/day and estimated PO intake exceeding sodium recommendations Status Active Problem Recommendation Dietitian Recommendations/Changes will change diet to 2200 calorie controlled, sodium restricted Lab / Micro Data Result Diagrams: 05/23/21 05:00 05/23/21 05:00 Labs: Laboratory Results - last 24 hr 05/22/21 16:21: Magnesium 1.5 L, Total Creatine Kinase 75 05/22/21 19:21: WBC 6.2, RBC 4.03 L, Hgb 12.8 L, Hct 37.8 L, MCV 93.8, MCH 31.8, MCHC 33.9, RDW Std Deviation 48.6 H, RDW Coeff of Ramya 14.1, Plt Count 42 L*, MPV 12.3 H, Immature Gran % (Auto) 0.600, Neut % (Auto) 85.2 H, Lymph % (Auto) 6.8 L , [place] % (Auto) 6.3, Eos % (Auto) 0.6, Baso % (Auto) 0.5, Absolute Neuts (auto) 5.3, Absolute Lymphs (auto) 0.42 L, Nucleated RBC % 0, Differential Comment , Diff Path Review Reviewed, Platelet Estimate MKD DEC, RBC Morphology NORM C+C 05/22/21 19:21: PT 17.6 H, INR 1.5, APTT 43.4 H 05/22/21 19:21: Sodium 137, Potassium 4.0, Chloride 105, Carbon Dioxide 28.0, Anion Gap 4 L, BUN 8, Creatinine 0.90, Estim Creat Clear Calc 121.27, Est GFR (MDRD) Af Amer 116, Est GFR (MDRD) Non-Af 96, BUN/Creatinine Ratio 8.9 L, Glucose 235 H, Calcium 8.3 L, Total Bilirubin 2.90 H, AST 39 H, ALT 36, Alkaline Phosphatase 104, Total Protein 6.4, Albumin 2.9 L, Globulin 3.5, Albumin/Globuli n Ratio 0.8 L 05/22/21 19:21: Lactic Acid 3.2 H* 05/22/21 20:19: Urine Color [place], Urine Clarity Clear, Urine pH 6.5, Ur Specific [place] 1.015, Urine Protein 30 H, Urine Glucose (UA) 50 H, Urine Ketones 5 H, Urine Occult Blood 250 H, Urine Nitrite Negative, Urine Bilirubin Negative, Urine Urobilinogen 4 H, Ur Leukocyte Esterase 25 H, Urine RBC 10-25 SEEN, Urine WBC 0-5 SEEN, Ur Squamous Epith Cells 0-5 SEEN, Urine Bacteria 0 SEEN, Urine Mucus 0 SEEN 05/22/21 23:18: POC Glucose 166 H 05/23/21 00:08: Lactic Acid 1.5 05/23/21 05:00: WBC 4.7, RBC 3.60 L, Hgb 11.5 L, Hct 33.9 L, MCV 94.2 H, MCH 31.9, MCHC 33.9, RDW Std Deviation 48.4 H, RDW Coeff of Ramya 14.1, Plt Count 37 L*, MPV 13.1 H, Immature Gran % (Auto) 1.100 H, Neut % (Auto) 70.2 H, Lymph % (Auto) 16.1 L, [place] % (Auto) 10.5 H, Eos % (Auto) 1.5, Baso % (Auto) 0.6, Absolute Neuts (auto) 3.3, Absolute Lymphs (auto) 0.75 L, Nucleated RBC % 0, Diff Path Review Reviewed 05/23/21 05:00: Sodium 139, Potassium 3.7, Chloride 109 H, Carbon Dioxide 26.0, Anion Gap 4 L, BUN 7, Creatinine 0.65 L, Estim Creat Clear Calc 167.92, Est GFR (MDRD) Af Amer 169, Est GFR (MDRD) Non-Af 140, BUN/Creatinine Ratio 10.8, Glucose 144 H, Calcium 7.4 L, Phosphorus 2.2 L, Total Bilirubin 2.60 H, AST 32, ALT 30, Alkaline Phosphatase 93, Total Protein 5.6 L, Albumin 2.8 L, Globulin 2.8, Albumin/Globulin Ratio 1.0 05/23/21 05:00: Hemoglobin A1c 6.3 H 05/23/21 11:44: POC Glucose 259 H Micro: Microbiology 05/22/21 21:27 Mucosa - Nose SARS-CoV-2 Antigen (Rapid) - Final
--- NOTE | 2021-05-23 15:58 | VDLE_ITS ---
Reason For Study: BLE Swelling RIGHT LEFT GSV is normal. GSV is normal. CFV is compressible, spontaneous, phasic, CFV is compressible, spontaneous, phasic, competent and demonstrates normal competent, and demonstrates normal augmentation. augmentation. FV is compressible, spontaneous, phasic, FV is compressible, spontaneous, phasic, competent and demonstrates normal competent and demonstrates normal augmentation. augmentation. POP V is compressible, spontaneous, phasic, POP V is compressible, spontaneous, phasic, competent and demonstrates normal competent and demonstrates normal augmentation. augmentation. T/P Trunk is compressible. T/P Trunk is compressible. PTV is compressible. PTV is compressible. RT PerV is compressible. LT PerV is compressible. Procedure This is a venous duplex using B-mode, color flow and spectral Doppler. Exam performed portable in patient room. A preliminary report was called and/or faxed to [facility] [place]. VL/Venous Duplex US - Moses Extrem Interpretation Summary No evidence for acute deep venous thrombosis bilateral lower extremities with p atent and compressible bilateral great saphenous veins. Ordering Physician: Kyle Martinez Referring Physician: Migdalia Carroll Performed By: Mitzi Nash RVT
[2021-05-23 17:01] LABS: Bedside Glucose 190 mg/dL (70-110)
--- NOTE | 2021-05-23 21:21 | PCM.RX.CS ---
Consult Pharmacy has been consulted to manage selected antiobiotic: Vancomycin Type of Consult: Follow-up Suspected Infection: Skin/Soft tissue Prior Doses of Antibiotics Received/Current Regimen: Has been on 1500mg iv q8h. Labs: Sodium 139 mmol/L (136-145) 05/23/21 05:00 Potassium 3.7 mmol/L (3.5-5.1) 05/23/21 05:00 Chloride 109 mmol/L (98-107) H 05/23/21 05:00 Carbon Dioxide 26.0 mmol/L (21.0-32.0) 05/23/21 05:00 Anion Gap 4 (5-15) L 05/23/21 05:00 BUN 7 mg/dL (7-18) 05/23/21 05:00 Creatinine 0.65 mg/dL (0.70-1.30) L 05/23/21 05:00 Est GFR (MDRD) Af Amer 169 mL/min (>60) 05/23/21 05:00 Est GFR (MDRD) Non-Af 140 mL/min (>60) 05/23/21 05:00 BUN/Creatinine Ratio 10.8 RATIO (10-20) 05/23/21 05:00 Glucose 144 mg/dL (74-106) H 05/23/21 05:00 Vancomycin Trough 11.0 ug/mL (5.0-15.0) 05/23/21 19:40 Microbiology: Microbiology 05/22/21 19:21 Blood Culture (Wb) - Anticubital Left Blood Culture - Preliminary 05/22/21 21:27 Mucosa - Nose SARS-CoV-2 Antigen (Rapid) - Final Weight used for dosin kg Estimated Creatinine Clearance: >120ml/min Goal Trough: 15-20 mcg/mL Pharmacy Plan for Drug Dosing: Today's trough level was 11.0 ~ 6.5 hrs post last dose. Goal range is 15-20 mcg/ml. Have changed dose to 2000mg iv q8h per protocol. Another trough level ordered for 05.25.21 before 4th dose. Pharmacy Service will continue to monitor and adjust dosing as required. Follow-Up Labs: Trough Vancomycin - 05.25.21@0330 before 0400 dose
[2021-05-23 22:16] LABS: Bedside Glucose 209 mg/dL (70-110)
[2021-05-24] MEDS: oxyCODONE 5 MG Tablet PO ×5 (02:35→23:43)
[2021-05-24 02:57] VITALS: BP 139/42; PULSE 82; RESP 20; TEMP 36.8; O2SAT 95
[2021-05-24] MEDS: Insulin Lispro 100 UNIT/ML INSULN.PEN SC ×4 (06:44→23:33)
[2021-05-24 06:56] LABS: Bedside Glucose 175 mg/dL (70-110)
[2021-05-24 07:18] VITALS: O2SAT 95
--- NOTE | 2021-05-24 07:35 | PN.HOSP_ITS ---
Subjective Subjective Patient seen erythema involving anterior abdominal wall as well as left lower extremity persists. Blood cultures positive for gram-positive cocci final identification pending Objective Data Objective Data Vital Signs: Vital Signs Temp Pulse Resp BP Pulse Ox 98.3 F 82 20 H 139/42 H 95 05/24/21 02:57 05/24/21 02:57 05/24/21 02:57 05/24/21 02:57 05/24/21 02:57 Oxygen Flow Rate (L/min) 50 Oxygen Delivery Method Room Air Weight: 166.2 kg Body Mass Index (BMI) 44.4 Intake & Output: Intake and Output for Last 24 Hours 05/22/21 05/23/21 05/24/21 23:59 23:59 23:59 Intake Total 2640 / 2840 6670.75 / 7370.75 2790 / 2790 Output Total 2590 / 3290 1400 / 1400 Balance 2640 / 2520 4080.75 / 4080.75 1390 / 1390 Medical Nutrition Assessment Dietitian: Nutrition Therapy Diagnosis Start: 05/23/21 10:01 Freq: Status: Active Protocol: Document 05/23/21 10:30 AG (Rec: 05/23/21 10:30 AG [id number]) Nutrition Malnutrition Evidence of Malnutrition Exists No Intake Problem Decreased Nutrient Needs (specify) Etiology (sodium) r/t DEAN cirrhosis Signs/Symptoms as evidenced by recommended 2000mg sodium/day and estimated PO intake exceeding sodium recommendations Status Active Problem Recommendation Dietitian Recommendations/Changes will change diet to 2200 calorie controlled, sodium restricted Lab / Micro Data Result Diagrams: 05/24/21 07:20 05/24/21 07:20 Labs: Laboratory Results - last 24 hr 05/22/21 19:21: Diff Path Review Reviewed 05/23/21 05:00: Diff Path Review Reviewed 05/23/21 05:00: Hemoglobin A1c 6.3 H 05/23/21 11:44: POC Glucose 259 H 05/23/21 16:44: POC Glucose 190 H 05/23/21 19:40: Vancomycin Trough 11.0 05/23/21 22:01: POC Glucose 209 H 05/24/21 06:42: POC Glucose 175 H Micro: Microbiology 05/22/21 19:21 Blood Culture (Wb) - Anticubital Left Blood Culture - Preliminary 05/22/21 21:27 Mucosa - Nose SARS-CoV-2 Antigen (Rapid) - Final Physical Exam Narrative GENERAL: cooperative HEENT: Atraumatic; EYES; Anicteric, Normal Conjunctiva NECK; supple, normal thyroid, RESPIRATORY: Diminished to auscultation CARDIOVASCULAR: Regular S1 S2, GI: soft, normoactive bowel sounds, : No Renal angle tenderness; EXTREMITIES: No edema, no clubbing, MUSCULOSKELETAL: no muscle waisting NEURO: Awake; no lateralizing signs. SKIN: An area of erythema and warmth around the periumbilical region and anterior surface of the left lower extremity PSYCH; Flat affect Assessment & Plan Assessment/Plan (1) Abdominal wall cellulitis: (2) Cellulitis of left lower leg: (3) Severe sepsis: PLAN: Patient is a 39-year-old with multiple comorbidities including obesity with BMI of 45.2, diabetes mellitus type 2, nonalcoholic fatty liver disease who presented with erythema and redness involving anterior abdominal wall as well as left lower extremity. An assessment of severe sepsis secondary to cellulitis of anterior abdominal wall and left lower extremities made admitted to the intensive care unit for subsequent management 1. Severe sepsis Secondary to anterior abdominal wall cellulitis as well as left lower leg cellulitis. Patient was admitted to the intensive care initially managed per protocol with aggressive IV fluid resuscitation, broad-spectrum antibiotic th erapy with vancomycin and Zosyn after cultures have been obtained subsequent monitoring of patient's progress with serial lactic acid levels 05/24/2021; Patient seen erythema involving anterior abdominal wall as well as left lower extremity persists. Blood cultures positive for gram-positive cocci final identification pending. Patient was also seen in consultation by Dr. Martinez his notes and recommendations reviewed 2. Diabetes mellitus type II -patient's oral hypoglycemics held. Placed on long acting insulin, Accu-Cheks a.c. and at bedtime and covered with sliding scale insulin 3. Nonalcoholic fatty liver disease ?With complications including thrombocytopenia, monitoring with daily CBCs 4. Thrombocytopenia secondary to nonalcoholic fatty liver disease ?Monitoring with daily CBCs patient currently does not have any bleeding episodes 5. Obesity with BMI of 45.2 ?Weight loss advised 6. BPH ?Symptoms controlled with tamsulosin discontinued 7. Essential hypertension ?Patient blood pressure medications were held on admission. Has since been resumed 8. Chronic pain syndrome -secondary to bulging disc in his lower back. Patient is on gabapentin as well as chronic narcotics 9. DVT prophylaxis ?Chemoprophylaxis contraindicated in view of patient low platelet counts would encourage early ambulation Charges/Coding Visit Charges Inpatient E&M: 04244 Subs Hosp L2
[2021-05-24 07:39] LABS: Absolute Lymphocyte Count 0.69 X10^3/uL (0.83-4.51); Absolute Neutrophil Count 1.6 X10^3/uL (2.0-7.7); Basophil# 0.02 X10^3/uL; Basophil% 0.7 % (0-1); Eosinophil# 0.11 X10^3/uL; Lymphocyte # 0.69 X10^3/ul (0.83-4.51); Lymphocyte % 24.9 % (19-41); Mean Corp Hgb Conc 34.3 g/dL (32-36); Mean Corpuscular Volume 93.3 fL (80-94); Mean Platelet Vol. 12.5 fl (6.2-12.0); Monocyte# 0.38 X10^3/uL; Monocyte% 13.7 % (0-10); NRBC Flagged by Analyzer 0 % (0-5); Neutrophil # 1.55 X10^3/uL (2.7-7.7); POSITIVE COUNT YES; RBC Distribution Width SD 47.8 fl (35.1-43.9); Red Blood Count 3.75 M/mm3 (4.6-6.2); White Blood Count 2.8 K/mm3 (4.4-11.0)
[2021-05-24 08:06] LABS: Platelet Count 39 K/mm3 (150-450)
[2021-05-24 08:07] LABS: Differential Indicated SCAN CRITERIA MET
[2021-05-24 08:09] LABS: AST(SGOT) 29 U/L (15-37); Alanine Aminotransfer ALT/SGPT 28 U/L (16-61); Albumin, Serum 2.6 g/dL (3.2-5.0); Alkaline Phosphatase 101 U/L (45-117); Anion Gap 3 (5-15); BUN 8 mg/dL (7-18); BUN/Creat Ratio 13.5 RATIO (10-20); Calcium,Total 7.7 mg/dL (8.5-10.1); Chloride 109 mmol/L (98-107); Creatinine, Serum 0.59 mg/dL (0.70-1.30); EST Glomerular Filtration Rate 155 mL/min (>60); Est Glom Filt Rate - Afr Amer 188 mL/min (>60); Estimated Creatinine Clearance 184.99 ml/min; Globulin 3.1 g/dL (2.2-4.2); Glucose 179 mg/dL (74-106); Magnesium 1.8 mg/dL (1.6-2.6); Potassium 3.9 mmol/L (3.5-5.1); Protein, Total 5.7 g/dL (6.4-8.2); Sodium Level 139 mmol/L (136-145)
[2021-05-24 08:27] LABS: Platelet Estimate MKD DEC (ADEQ)
[2021-05-24 09:29] VITALS: BP 146/72; PULSE 89; RESP 20; TEMP 36.8; O2SAT 96
[2021-05-24] MEDS: Lisinopril 10 MG Tablet PO (09:40)
[2021-05-24] MEDS: Tamsulosin HCl 0.4 MG Capsule PO (09:40)
[2021-05-24] MEDS: Gabapentin 300 MG Capsule PO ×2 (09:40→23:32)
[2021-05-24] MEDS: Morphine 2 MG/ML Syringe IV ×3 (09:41→19:39)
[2021-05-24] MEDS: 0.9% Saline Lock 10 ML Syringe IV ×3 (09:41→23:32)
[2021-05-24 12:01] LABS: Bedside Glucose 206 mg/dL (70-110)
--- NOTE | 2021-05-24 12:18 | ECHOCS_ITS ---
Reason For Study: Murmur Procedure This was a 2D Doppler, Color Flow transthoracic echocardiogram. The study was technically difficult. Contrast injection was performed. Exam performed portable in patient room. Left Ventricle Normal LV size. Moderate concentric left ventricular hypertrophy. Left ventricular systolic function is normal. The estimated ejection fraction is 70 %. Diastolic function is indeterminate. No regional wall motion abnormalities noted. Right Ventricle Normal RV size. Normal systolic function. Atria The left atrium is moderately enlarged. The right atrium is mildly enlarged. No doppler evidence for ASD. Mitral Valve There is no mitral annular calcification. Mild focal mitral valve calcification of the anterior leaflet. Mild (1+) mitral valve insufficiency. Tricuspid Valve Normal tricuspid valve. Trivial tricuspid valve insufficiency. Right ventricular systolic pressure estimated to be 45 mmHg. Aortic Valve Trisinus/trileaflet aortic valve. Normal aortic valve. Pulmonic Valve The pulmonic valve is not well visualized. Great Vessels Normal sized aortic root. Pericardium/Pleural No pericardial effusion. Medication Diluted definity 3ml given slow IV push to enhance endocardial definition. MMode/2D Measurements & Calculations LVIDd: 5.7 cm IVSd: 1.5 cm LVOT diam: 2.1 cm LVIDs: 3.1 cm LVPWd: 1.5 cm FS: 45.4 % LVOT area: 3.6 cm2 Ao root diam: 3.9 cm LAV(MOD-bp): 140.6 ml LA A4 area: 37.8 cm2 LA dimension: 5.7 cm LAV(MOD-bp) Indexed: 50.0 ml/m2 LAV(MOD-sp2): 124.7 ml LAV(MOD-sp4): 147.5 ml RA A4 area: 30.1 cm2 Time Measurements MV dec time: 0.29 sec Doppler Measurements & Calculations MV E max roland: 138.5 cm/sec Lat Peak E' Roland: 15.6 cm/sec Med Peak E' Roland: 14.0 cm/sec MV A max roland: 101.1 cm/sec E/E' lat: 8.9 E/E' med: 9.9 MV E/A: 1.4 MV V2 max: 170.8 cm/sec MV P1/2t max roland: 170.0 cm/sec Ao V2 max: 236.8 cm/sec MV max P.7 mmHg MV P1/2t: 68.1 msec Ao max P.5 mmHg MV V2 mean: 98.2 cm/sec MV dec slope: 730.6 cm/sec2 MV mean P.4 mmHg MV V2 VTI: 43.6 cm MVA(P1/2t): 3.2 cm2 PA V2 max: 146.8 cm/sec TR max roland: 324.1 cm/sec TR max P.0 mmHg ECHO/Echo Complete W/ Contrast Interpretation Summary The study was technically difficult. Contrast injection was performed. Left ventricular systolic function is normal. The estimated ejection fraction is 70 %. Moderate concentric left ventricular hypertrophy. The left atrium is moderately enlarged. The right atrium is mildly enlarged. Mild focal mitral valve calcification of the anterior leaflet. Mild (1+) mitral valve insufficiency. Trivial tricuspid valve insufficiency. Right ventricular systolic pressure estimated to be 45 mmHg. Diastolic function is indeterminate. Ordering Physician: Kyle Martinez Referring Physician: Migdalia Carroll [employer]GER[employer] Performed By: Aleks Chacko RCS
--- NOTE | 2021-05-24 15:14 | PCM.PN.ID ---
Physical Exam Narrative Feeling better, abd less sore and red. No fever, no new joint pain. Has chronic back pain. Const alert and no apparent distress General Appearance: cooperative Resp normal air movement and clear to auscultation bilaterally Cardio regular rate and regular rhythm GI normal to inspection, nondistended, normoactive bowel sounds Extremity General Extremity: edema Skin Skin Narrative: Abd and BLE less red ID ID: Route of nutrition/ use of supplements: [] Nutritional Intake: [] IV Site: [] Bernabe Catheter: [] Assessment & Plan Assessment/Plan (1) Severe sepsis: PLAN: No DVT on BLE doppler. Cont vanc/zosyn for now. Bcx with staph aureus. Will repeat bcx and check echo. 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
[2021-05-24 17:03] VITALS: BP 146/62; PULSE 79; RESP 18; TEMP 36.8; O2SAT 94
[2021-05-24 17:46] LABS: Bedside Glucose 197 mg/dL (70-110)
[2021-05-24 19:44] VITALS: BP 127/79; PULSE 89; RESP 18; TEMP 37; O2SAT 97
[2021-05-24 23:41] LABS: Bedside Glucose 231 mg/dL (70-110)
[2021-05-25 04:01] LABS: Vancomycin, Trough Level 13.3 ug/mL (5.0-15.0)
[2021-05-25 04:02] VITALS: BP 125/44; PULSE 89; RESP 18; TEMP 36.6; O2SAT 97
[2021-05-25] MEDS: 0.9% Saline Lock 10 ML Syringe IV ×2 (04:06→18:59)
[2021-05-25] MEDS: Morphine 2 MG/ML Syringe IV ×5 (04:07→22:19)
--- NOTE | 2021-05-25 04:48 | PCM.RX.CS ---
Consult Pharmacy has been consulted to manage selected antiobiotic: Vancomycin Type of Consult: Follow-up Labs: Sodium 139 mmol/L (136-145) 05/24/21 07:20 Potassium 3.9 mmol/L (3.5-5.1) 05/24/21 07:20 Chloride 109 mmol/L (98-107) H 05/24/21 07:20 Carbon Dioxide 27.0 mmol/L (21.0-32.0) 05/24/21 07:20 Anion Gap 3 (5-15) L 05/24/21 07:20 BUN 8 mg/dL (7-18) 05/24/21 07:20 Creatinine 0.59 mg/dL (0.70-1.30) L 05/24/21 07:20 Est GFR (MDRD) Af Amer 188 mL/min (>60) 05/24/21 07:20 Est GFR (MDRD) Non-Af 155 mL/min (>60) 05/24/21 07:20 BUN/Creatinine Ratio 13.5 RATIO (10-20) 05/24/21 07:20 Glucose 179 mg/dL (74-106) H 05/24/21 07:20 Vancomycin Trough 13.3 ug/mL (5.0-15.0) 05/25/21 03:30 Microbiology: Microbiology 05/22/21 19:21 Blood Culture (Wb) - Anticubital Left Blood Culture - Preliminary Staphylococcus aureus 05/22/21 21:27 Mucosa - Nose SARS-CoV-2 Antigen (Rapid) - Final Goal Trough: 15-20 mcg/mL Pharmacy Plan for Drug Dosing: Pharmacy Service will continue to monitor and adjust dosing as required. TROUGH 13.3, DRAW NEXT TROUGH 05/27 @ 1130 PER SLIGHTLY LOW LEVEL Follow-Up Labs: Trough Vancomycin Labs to be done on [date and time ordered]: 05/27 @ 1130
[2021-05-25] MEDS: oxyCODONE 5 MG Tablet PO ×3 (06:33→16:52)
[2021-05-25] MEDS: Insulin Lispro 100 UNIT/ML INSULN.PEN SC ×4 (06:33→22:19)
[2021-05-25 06:40] LABS: Bedside Glucose 195 mg/dL (70-110)
[2021-05-25 07:21] LABS: Absolute Lymphocyte Count 0.72 X10^3/uL (0.83-4.51); Absolute Neutrophil Count 1.3 X10^3/uL (2.0-7.7); Basophil# 0.03 X10^3/uL; Basophil% 1.2 % (0-1); Eosinophil# 0.16 X10^3/uL; Eosinophils% 6.4 % (0-5); Hematocrit 33.6 % (40-54); Hemoglobin 11.6 g/dL (13.0-16.5); Lymphocyte # 0.72 X10^3/ul (0.83-4.51); Lymphocyte % 28.7 % (19-41); Mean Corp Hgb Conc 34.5 g/dL (32-36); Mean Corpuscular Volume 92.6 fL (80-94); Mean Platelet Vol. 12.3 fl (6.2-12.0); Monocyte# 0.32 X10^3/uL; Monocyte% 12.7 % (0-10); NRBC Flagged by Analyzer 0 % (0-5); Neutrophil # 1.27 X10^3/uL (2.7-7.7); Neutrophil % 50.6 % (47-70); POSITIVE COUNT YES; Platelet Count 48 K/mm3 (150-450); RBC Distribution Width SD 47.8 fl (35.1-43.9); Red Blood Count 3.63 M/mm3 (4.6-6.2); White Blood Count 2.5 K/mm3 (4.4-11.0)
[2021-05-25 07:27] LABS: Differential Indicated SCAN CRITERIA MET
[2021-05-25 07:31] LABS: Anion Gap 4 (5-15); BUN 7 mg/dL (7-18); BUN/Creat Ratio 12.1 RATIO (10-20); Calcium,Total 7.6 mg/dL (8.5-10.1); Chloride 109 mmol/L (98-107); Creatinine, Serum 0.58 mg/dL (0.70-1.30); EST Glomerular Filtration Rate 160 mL/min (>60); Est Glom Filt Rate - Afr Amer 193 mL/min (>60); Estimated Creatinine Clearance 188.18 ml/min; Glucose 218 mg/dL (74-106); Potassium 3.7 mmol/L (3.5-5.1); Sodium Level 140 mmol/L (136-145)
[2021-05-25 08:02] VITALS: O2SAT 95
--- NOTE | 2021-05-25 08:05 | PN.HOSP_ITS ---
Subjective Subjective Patient seen, blood cultures came back positive for staph aureus, transthoracic echo obtained subsequently was negative for endocarditis. Repeat blood cultures ordered Objective Data Objective Data Vital Signs: Vital Signs Temp Pulse Resp BP Pulse Ox 97.8 F 89 18 125/44 H 95 05/25/21 04:02 05/25/21 04:02 05/25/21 04:02 05/25/21 04:02 05/25/21 08:02 Oxygen Flow Rate (L/min) 50 Oxygen Delivery Method Room Air Weight: 166.2 kg Body Mass Index (BMI) 44.4 Intake & Output: Intake and Output for Last 24 Hours 05/23/21 05/24/21 05/25/21 23:59 23:59 23:59 Intake Total 6670.75 / 7370.75 5088.25 / 5088.25 590 / 590 Output Total 2590 / 3290 2600 / 2600 800 / 800 Balance 4080.75 / 4080.75 2488.25 / 2488.25 -210 / -210 Medical Nutrition Assessment Dietitian: Nutrition Therapy Diagnosis Start: 05/23/21 10:01 Freq: Status: Active Protocol: Document 05/23/21 10:30 AG (Rec: 05/23/21 10:30 AG [id number]) Nutrition Malnutrition Evidence of Malnutrition Exists No Intake Problem Decreased Nutrient Needs (specify) Etiology (sodium) r/t DEAN cirrhosis Signs/Symptoms as evidenced by recommended 2000mg sodium/day and estimated PO intake exceeding sodium recommendations Status Active Problem Recommendation Dietitian Recommendations/Changes will change diet to 2200 calorie controlled, sodium restricted Lab / Micro Data Result Diagrams: 05/25/21 07:05 05/25/21 07:05 Labs: Laboratory Results - last 24 hr 05/24/21 07:20: WBC 2.8 L, RBC 3.75 L, Hgb 12.0 L, Hct 35.0 L, MCV 93.3, MCH 32.0, MCHC 34.3, RDW Std Deviation 47.8 H, RDW Coeff of Ramya 14.0, Plt Count 39 L*, MPV 12.5 H, Immature Gran % (Auto) 0.700, Neut % (Auto) 56.0, Lymph % (Auto) 24.9, [place] % (Auto) 13.7 H, Eos % (Auto) 4.0, Baso % (Auto) 0.7, Absolute Neuts (auto) 1.6 L, Absolute Lymphs (auto) 0.69 L, Nucleated RBC % 0, Differential Comment COMMENT, Diff Path Review February foll, Platelet Estimate MKD 05/24/21 07:20: Sodium 139, Potassium 3.9, Chloride 109 H, Carbon Dioxide 27.0, Anion Gap 3 L, BUN 8, Creatinine 0.59 L, Estim Creat Clear Calc 184.99, Est GFR (MDRD) Af Amer 188, Est GFR (MDRD) Non-Af 155, BUN/Creatinine Ratio 13.5, Glucose 179 H, Calcium 7.7 L, Magnesium 1.8, Total Bilirubin 1.60 H, Direct Bilirubin 0.50 H, AST 29, ALT 28, Alkaline Phosphatase 101, Total Protein 5.7 L, Albumin 2.6 L, Globulin 3.1 05/24/21 11:51: POC Glucose 206 H 05/24/21 17:05: POC Glucose 197 H 05/24/21 23:30: POC Glucose 231 H 05/25/21 03:30: Vancomycin Trough 13.3 05/25/21 06:32: POC Glucose 195 H 05/25/21 07:05: WBC 2.5 L, RBC 3.63 L, Hgb 11.6 L, Hct 33.6 L, MCV 92.6, MCH 32.0, MCHC 34.5, RDW Std Deviation 47.8 H, RDW Coeff of Ramya 14.0, Plt Count 48 L*, MPV 12.3 H, Immature Gran % (Auto) 0.400, Neut % (Auto) 50.6, Lymph % (Auto) 28.7, [place] % (Auto) 12.7 H, Eos % (Auto) 6.4 H, Baso % (Auto) 1.2 H, Absolute Neuts (auto) 1.3 L, Absolute Lymphs (auto) 0.72 L, Nucleated RBC % 0 05/25/21 07:05: Sodium 140, Potassium 3.7, Chloride 109 H, Carbon Dioxide 27.0, Anion Gap 4 L, BUN 7, Creatinine 0.58 L, Estim Creat Clear Calc 188.18, Est GFR (MDRD) Af Amer 193, Est GFR (MDRD) Non-Af 160, BUN/Creatinine Ratio 12.1, Glucose 218 H, Calcium 7.6 L Micro: Microbiology 05/22/21 19:21 Blood Culture (Wb) - Anticubital Left Blood Culture - Preliminary Staphylococcus aureus 05/22/21 19:33 Blood Culture (Wb) - Anticubital Right Blood Culture - Preliminary No growth in 48 hours. 05/22/21 21:27 Mucosa - Nose SARS-CoV-2 Antigen (Rapid) - Final Radiography Diagnostic Testing: Radiology Impression Venous Doppler Study 05/23/21 15:58 Interpretation Summary No evidence for acute deep venous thrombosis bilateral lower extremities with patent and compressible bilateral great saphenous veins. Ordering Physician: Kyle Martinez Referring Physician: Migdalia Carroll Performed By: Mitzi Nash RVT Echocardiogram 05/24/21 12:18 Interpretation Summary The study was technically difficult. Contrast injection was performed. Left ventricular systolic function is normal. The estimated ejection fraction is 70 %. Moderate concentric left ventricular hypertrophy. The left atrium is moderately enlarged. The right atrium is mildly enlarged. Mild focal mitral valve calcification of the anterior leaflet. Mild (1+) mitral valve insufficiency. Trivial tricuspid valve insufficiency. Right ventricular systolic pressure estimated to be 45 mmHg. Diastolic function is indeterminate. Ordering Physician: Kyle Martinez Referring Physician: Migdalia Carroll [employer]PER[employer]OR [employer] Performed By: Aleks Chacko RCS Physical Exam Narrative GENERAL: cooperative HEENT: Atraumatic; EYES; Anicteric, Normal Conjunctiva NECK; supple, normal thyroid, RESPIRATORY: Diminished to auscultation CARDIOVASCULAR: Regular S1 S2, GI: soft, normoactive bowel sounds, : No Renal angle tenderness; EXTREMITIES: No edema, no clubbing, MUSCULOSKELETAL: no muscle waisting NEURO: Awake; no lateralizing signs. SKIN: An area of erythema and warmth around the periumbilical region and anterior surface of the left lower extremity PSYCH; Flat affect Assessment & Plan Assessment/Plan (1) Abdominal wall cellulitis: (2) Cellulitis of left lower leg: (3) Severe sepsis: PLAN: Patient is a 39-year-old with multiple comorbidities including obesity with BMI of 45.2, diabetes mellitus type 2, nonalcoholic fatty liver disease who presented with erythema and redness involving anterior abdominal wall as well as left lower extremity. An assessment of severe sepsis secondary to cellulitis of anterior abdominal wall and left lower extremities made admitted to the intensive care unit for subsequent management 1. Severe sepsis Secondary to anterior abdominal wall cellulitis as well as left lower leg cellulitis. Patient was admitted to the intensive care initially managed per protocol with aggressive IV fluid resuscitation, broad-spectrum antibiotic therapy with vancomycin and Zosyn after cultures have been obtained subsequent monitoring of patient's progress with serial lactic acid levels 05/24/2021; Patient seen erythema involving anterior abdominal wall as well as left lower extremity persists. Blood cultures positive for gram-positive cocci final identification pending. Patient was also seen in consultation by Dr. Martinez his notes and recommendations reviewed -05/25/2021; blood cultures came back positive for staph aureus, transthoracic echo obtained subsequently was negative for endocarditis. Repeat blood cultures ordered 2. Diabetes mellitus type II -patient's oral hypoglycemics held. Placed on long acting insulin, Accu-Cheks a.c. and at bedtime and covered with sliding scale insulin 3. Nonalcoholic fatty liver disease ?With complications including thrombocytopenia, monitoring with daily CBCs 4. Thrombocytopenia secondary to nonalcoholic fatty liver disease ?Monitoring with daily CBCs patient currently does not have any bleeding episodes 5. Obesity with BMI of 45.2 ?Weight loss advised 6. BPH ?Symptoms controlled with tamsulosin discontinued 7. Essential hypertension ?Patient blood pressure medications were held on admission. Has since been resumed 8. Chronic pain syndrome -secondary to bulging disc in his lower back. Patient is on gabapentin as well as chronic narcotics 9. DVT prophylaxis ?Chemoprophylaxis contraindicated in view of patient low platelet counts would encourage early ambulation Charges/Coding Visit Charges Inpatient E&M: 19093 Subs Hosp L2
[2021-05-25 08:13] LABS: Platelet Estimate MKD DEC (ADEQ)
[2021-05-25 09:40] VITALS: BP 152/65; PULSE 83; RESP 18; TEMP 36.8; O2SAT 95
[2021-05-25] MEDS: Lisinopril 10 MG Tablet PO (09:48)
[2021-05-25] MEDS: Gabapentin 300 MG Capsule PO ×2 (09:48→22:22)
[2021-05-25] MEDS: Tamsulosin HCl 0.4 MG Capsule PO (09:48)
[2021-05-25 12:20] LABS: Bedside Glucose 216 mg/dL (70-110)
[2021-05-25 16:00] VITALS: BP 150/62; PULSE 80; RESP 18; TEMP 36.9; O2SAT 96
[2021-05-25 17:26] LABS: Bedside Glucose 241 mg/dL (70-110)
[2021-05-25 22:14] VITALS: BP 166/67; PULSE 82; RESP 18; TEMP 36.9; O2SAT 96
[2021-05-25] MEDS: Acetaminophen 325 MG Tablet 650 MG PO (22:19)
[2021-05-25 22:36] LABS: Bedside Glucose 264 mg/dL (70-110)
[2021-05-26] MEDS: Morphine 2 MG/ML Syringe IV ×3 (01:47→21:53)
[2021-05-26 02:00] VITALS: BP 118/41; PULSE 95; RESP 18; TEMP 36.9; O2SAT 95
[2021-05-26] MEDS: Acetaminophen 325 MG Tablet 650 MG PO ×2 (06:56→20:01)
[2021-05-26] MEDS: oxyCODONE 5 MG Tablet PO ×4 (06:56→20:01)
[2021-05-26] MEDS: Insulin Lispro 100 UNIT/ML INSULN.PEN SC ×4 (06:59→21:47)
[2021-05-26 07:00] LABS: Absolute Lymphocyte Count 0.74 X10^3/uL (0.83-4.51); Absolute Neutrophil Count 1.1 X10^3/uL (2.0-7.7); Basophil# 0.03 X10^3/uL; Basophil% 1.3 % (0-1); Eosinophil# 0.15 X10^3/uL; Eosinophils% 6.7 % (0-5); Hematocrit 33.2 % (40-54); Hemoglobin 11.5 g/dL (13.0-16.5); Lymphocyte # 0.74 X10^3/ul (0.83-4.51); Lymphocyte % 32.9 % (19-41); Mean Corp Hgb Conc 34.6 g/dL (32-36); Mean Corpuscular Hgb 32.5 pg (27.0-32.0); Mean Corpuscular Volume 93.8 fL (80-94); Mean Platelet Vol. 11.8 fl (6.2-12.0); Monocyte# 0.26 X10^3/uL; Monocyte% 11.6 % (0-10); NRBC Flagged by Analyzer 0 % (0-5); Neutrophil # 1.06 X10^3/uL (2.7-7.7); Neutrophil % 47.1 % (47-70); POSITIVE COUNT YES; Platelet Count 50 K/mm3 (150-450); RBC Distribution Width CV 14.3 % (11.6-14.6); RBC Distribution Width SD 49.1 fl (35.1-43.9); Red Blood Count 3.54 M/mm3 (4.6-6.2); White Blood Count 2.3 K/mm3 (4.4-11.0)
[2021-05-26 07:01] VITALS: BP 134/52; PULSE 84; RESP 18; TEMP 36.4; O2SAT 95
[2021-05-26 07:02] LABS: Differential Indicated SCAN CRITERIA MET
[2021-05-26 07:03] LABS: Anion Gap 4 (5-15); BUN 7 mg/dL (7-18); BUN/Creat Ratio 13.2 RATIO (10-20); Calcium,Total 7.9 mg/dL (8.5-10.1); Chloride 107 mmol/L (98-107); Creatinine, Serum 0.53 mg/dL (0.70-1.30); EST Glomerular Filtration Rate 178 mL/min (>60); Est Glom Filt Rate - Afr Amer 215 mL/min (>60); Estimated Creatinine Clearance 205.94 ml/min; Glucose 239 mg/dL (74-106); Potassium 3.9 mmol/L (3.5-5.1); Sodium Level 139 mmol/L (136-145)
[2021-05-26 07:10] LABS: Bedside Glucose 218 mg/dL (70-110)
[2021-05-26 07:28] LABS: Platelet Estimate MKD DEC (ADEQ)
--- NOTE | 2021-05-26 07:29 | PN.HOSP_ITS ---
Subjective Subjective Patient seen had a relatively uneventful night. Repeat blood cultures pending. Objective Data Objective Data Vital Signs: Vital Signs Temp Pulse Resp BP Pulse Ox 97.6 F L 84 18 134/52 H 95 05/26/21 07:01 05/26/21 07:01 05/26/21 07:01 05/26/21 07:01 05/26/21 07:01 Oxygen Flow Rate (L/min) 50 Oxygen Delivery Method Room Air Weight: 166.2 kg Body Mass Index (BMI) 44.4 Intake & Output: Intake and Output for Last 24 Hours 05/24/21 05/25/21 05/26/21 23:59 23:59 23:59 Intake Total 5088.25 / 5088.25 2820 / 2820 1190 / 1190 Output Total 2600 / 2600 2675 / 2675 Balance 2488.25 / 2488.25 145 / 145 1190 / 1190 Medical Nutrition Assessment Dietitian: Nutrition Therapy Diagnosis Start: 05/23/21 10:01 Freq: Status: Active Protocol: Document 05/23/21 10:30 AG (Rec: 05/23/21 10:30 [id number]) Nutrition Malnutrition Evidence of Malnutrition Exists No Intake Problem Decreased Nutrient Needs (specify) Etiology (sodium) r/t DEAN cirrhosis Signs/Symptoms as evidenced by recommended 2000mg sodium/day and estimated PO intake exceeding sodium recommendations Status Active Problem Recommendation Dietitian Recommendations/Changes will change diet to 2200 calorie controlled, sodium restricted Lab / Micro Data Result Diagrams: 05/26/21 06:13 05/26/21 06:13 Labs: Laboratory Results - last 24 hr 05/25/21 07:05: WBC 2.5 L, RBC 3.63 L, Hgb 11.6 L, Hct 33.6 L, MCV 92.6, MCH 32.0, MCHC 34.5, RDW Std Deviation 47.8 H, RDW Coeff of Ramya 14.0, Plt Count 48 L*, MPV 12.3 H, Immature Gran % (Auto) 0.400, Neut % (Auto) 50.6, Lymph % (Auto) 28.7, [place] % (Auto) 12.7 H, Eos % (Auto) 6.4 H, Baso % (Auto) 1.2 H, Absolute Neuts (auto) 1.3 L, Absolute Lymphs (auto) 0.72 L, Nucleated RBC % 0, Diff Path Review February, Platelet Estimate D 05/25/21 07:05: Sodium 140, Potassium 3.7, Chloride 109 H, Carbon Dioxide 27.0, Anion Gap 4 L, BUN 7, Creatinine 0.58 L, Estim Creat Clear Calc 188.18, Est GFR (MDRD) Af Amer 193, Est GFR (MDRD) Non-Af 160, BUN/Creatinine Ratio 12.1, Glucose 218 H, Calcium 7.6 L 05/25/21 11:41: POC Glucose 216 H 05/25/21 16:40: POC Glucose 241 H 05/25/21 22:13: POC Glucose 264 H 05/26/21 06:13: WBC 2.3 L, RBC 3.54 L, Hgb 11.5 L, Hct 33.2 L, MCV 93.8, MCH 32.5 H, MCHC 34.6, RDW Std Deviation 49.1 H, RDW Coeff of Ramya 14.3, Plt Count 50 L*, MPV 11.8, Immature Gran % (Auto) 0.400, Neut % (Auto) 47.1, Lymph % (Auto) 32.9, [place] % (Auto) 11.6 H, Eos % (Auto) 6.7 H, Baso % (Auto) 1.3 H, Absolute Neuts (auto) 1.1 L, Absolute Lymphs (auto) 0.74 L, Nucleated RBC % 0, Platelet Estimate D 05/26/21 06:13: Sodium 139, Potassium 3.9, Chloride 107, Carbon Dioxide 28.0, Anion Gap 4 L, BUN 7, Creatinine 0.53 L, Estim Creat Clear Calc 205.94, Est GFR (MDRD) Af Amer 215, Est GFR (MDRD) Non-Af 178, BUN/Creatinine Ratio 13.2, Glucose 239 H, Calcium 7.9 L 05/26/21 06:59: POC Glucose 218 H Micro: Microbiology 05/22/21 19:21 Blood Culture (Wb) - Anticubital Left Blood Culture - Preliminary Staphylococcus aureus 05/22/21 19:33 Blood Culture (Wb) - Anticubital Right Blood Culture - Preliminary No growth in 48 hours. 05/22/21 21:27 Mucosa - Nose SARS-CoV-2 Antigen (Rapid) - Final Physical Exam Narrative GENERAL: cooperative HEENT: Atraumatic; EYES; Anicteric, Normal Conjunctiva NECK; supple, normal thyroid, RESPIRATORY: Diminished to auscultation CARDIOVASCULAR: Regular S1 S2, GI: soft, normoactive bowel sounds, : No Renal angle tenderness; EXTREMITIES: No edema, no clubbing, MUSCULOSKELETAL: no muscle waisting NEURO: Awake; no lateralizing signs. SKIN: An area of erythema and warmth around the periumbilical region and anterior surface of the left lower extremity PSYCH; Flat affect Assessment & Plan Assessment/Plan (1) Abdominal wall cellulitis: (2) Cellulitis of left lower leg: (3) Severe sepsis: PLAN: Patient is a 39-year-old with multiple comorbidities including obesity with BMI of 45.2, diabetes mellitus type 2, nonalcoholic fatty liver di sease who presented with erythema and redness involving anterior abdominal wall as well as left lower extremity. An assessment of severe sepsis secondary to cellulitis of anterior abdominal wall and left lower extremities made admitted to the intensive care unit for subsequent management 1. Severe sepsis Secondary to anterior abdominal wall cellulitis as well as left lower leg cellulitis. Patient was admitted to the intensive care initially managed per protocol with aggressive IV fluid resuscitation, broad-spectrum antibiotic therapy with vancomycin and Zosyn after cultures have been obtained subsequent monitoring of patient's progress with serial lactic acid levels 05/24/2021; Patient seen erythema involving anterior abdominal wall as well as left lower extremity persists. Blood cultures positive for gram-positive cocci final identification pending. Patient was also seen in consultation by Dr. Martinez his notes and recommendations reviewed -05/25/2021; blood cultures came back positive for staph aureus, transthoracic echo obtained subsequently was negative for endocarditis. Repeat blood cultures ordered -05/26/2021; Patient seen had a relatively uneventful night. Repeat blood cultures pending. 2. Diabetes mellitus type II -patient's oral hypoglycemics held. Placed on long acting insulin, Accu-Cheks a.c. and at bedtime and covered with sliding scale insulin 3. Nonalcoholic fatty liver disease ?With complications including thrombocytopenia, monitoring with daily CBCs 4. Thrombocytopenia secondary to nonalcoholic fatty liver disease ?Monitoring with daily CBCs patient currently does not have any bleeding episodes 5. Obesity with BMI of 45.2 ?Weight loss advised 6. BPH ?Symptoms controlled with tamsulosin discontinued 7. Essential hypertension ?Patient blood pressure medications were held on admission. Has since been resumed 8. Chronic pain syndrome -secondary to bulging disc in his lower back. Patient is on gabapentin as well as chronic narcotics 9. DVT prophylaxis ?Chemoprophylaxis contraindicated in view of patient low platelet counts would encourage early ambulation Charges/Coding Visit Charges Inpatient E&M: 69077 Subs Hosp L2
[2021-05-26 07:37] VITALS: O2SAT 95
[2021-05-26] MEDS: Tamsulosin HCl 0.4 MG Capsule PO (10:50)
[2021-05-26] MEDS: Lisinopril 10 MG Tablet PO (10:50)
[2021-05-26] MEDS: Gabapentin 300 MG Capsule PO ×2 (10:50→21:44)
[2021-05-26 11:06] LABS: Bedside Glucose 263 mg/dL (70-110)
[2021-05-26 13:00] VITALS: BP 165/67; PULSE 80; RESP 18; TEMP 36.8; O2SAT 97
[2021-05-26 17:30] LABS: Bedside Glucose 186 mg/dL (70-110)
[2021-05-26 20:00] VITALS: BP 120/84; PULSE 80; RESP 18; TEMP 36.8; O2SAT 98
[2021-05-26] MEDS: 0.9% Saline Lock 10 ML Syringe IV (20:06)
[2021-05-26 21:55] LABS: Bedside Glucose 268 mg/dL (70-110)
--- NOTE | 2021-05-26 23:37 | NURSING ---
Pt got 2 Robert barbie brought to ED, I told Pt he is on a Carb Consistent diet and already had a snack tonight. I told him I was letting the morning nurse know so she could tell the Dr that he was not following his diet orders. Pt said Thanks and took the barbie.
[2021-05-27 03:49] VITALS: BP 169/72; PULSE 94; RESP 18; TEMP 36.6; O2SAT 96
[2021-05-27] MEDS: oxyCODONE 5 MG Tablet PO ×3 (04:24→15:28)
[2021-05-27] MEDS: Acetaminophen 325 MG Tablet 650 MG PO (04:24)
[2021-05-27 04:54] VITALS: BP 169/72; PULSE 94
[2021-05-27] MEDS: hydrALAZINE 20 MG/ML Vial 5 MG IV (04:54)
[2021-05-27] MEDS: Insulin Lispro 100 UNIT/ML INSULN.PEN SC ×2 (06:39→12:07)
[2021-05-27 06:46] LABS: Bedside Glucose 153 mg/dL (70-110)
[2021-05-27 08:34] VITALS: BP 169/85; PULSE 83; RESP 18; TEMP 36.7; O2SAT 96
[2021-05-27] MEDS: Tamsulosin HCl 0.4 MG Capsule PO (10:00)
[2021-05-27] MEDS: Gabapentin 300 MG Capsule PO (10:00)
[2021-05-27] MEDS: Lisinopril 10 MG Tablet PO (10:01)
[2021-05-27 11:42] LABS: Absolute Lymphocyte Count 0.72 X10^3/uL (0.83-4.51); Absolute Neutrophil Count 1.3 X10^3/uL (2.0-7.7); Basophil# 0.03 X10^3/uL; Basophil% 1.2 % (0-1); Eosinophil# 0.14 X10^3/uL; Eosinophils% 5.7 % (0-5); Hematocrit 34.8 % (40-54); Hemoglobin 11.9 g/dL (13.0-16.5); Lymphocyte # 0.72 X10^3/ul (0.83-4.51); Lymphocyte % 29.1 % (19-41); Mean Corp Hgb Conc 34.2 g/dL (32-36); Mean Corpuscular Volume 93.5 fL (80-94); Mean Platelet Vol. 12.2 fl (6.2-12.0); Monocyte# 0.24 X10^3/uL; Monocyte% 9.7 % (0-10); NRBC Flagged by Analyzer 0 % (0-5); Neutrophil # 1.33 X10^3/uL (2.7-7.7); Neutrophil % 53.9 % (47-70); POSITIVE COUNT YES; Platelet Count 55 K/mm3 (150-450); RBC Distribution Width CV 14.6 % (11.6-14.6); RBC Distribution Width SD 49.8 fl (35.1-43.9); Red Blood Count 3.72 M/mm3 (4.6-6.2); White Blood Count 2.5 K/mm3 (4.4-11.0)
[2021-05-27 11:55] LABS: Bedside Glucose 196 mg/dL (70-110)
[2021-05-27 12:05] LABS: Vancomycin, Trough Level 15.5 ug/mL (5.0-15.0)
[2021-05-27 12:10] LABS: ALB/GLOB Ratio 0.8 RATIO (0.9-2.4); AST(SGOT) 34 U/L (15-37); Alanine Aminotransfer ALT/SGPT 27 U/L (16-61); Albumin, Serum 2.6 g/dL (3.2-5.0); Alkaline Phosphatase 109 U/L (45-117); Anion Gap 3 (5-15); BUN 7 mg/dL (7-18); BUN/Creat Ratio 13.3 RATIO (10-20); Calcium,Total 8.3 mg/dL (8.5-10.1); Chloride 108 mmol/L (98-107); Creatinine, Serum 0.53 mg/dL (0.70-1.30); EST Glomerular Filtration Rate 178 mL/min (>60); Est Glom Filt Rate - Afr Amer 216 mL/min (>60); Estimated Creatinine Clearance 205.94 ml/min; Globulin 3.2 g/dL (2.2-4.2); Glucose 236 mg/dL (74-106); Potassium 4.2 mmol/L (3.5-5.1); Protein, Total 5.8 g/dL (6.4-8.2); Sodium Level 141 mmol/L (136-145)
[2021-05-27 12:31] VITALS: O2SAT 96
--- NOTE | 2021-05-27 13:21 | PCM.DC ---
Discharge Instructions Diet Discharge Diet: Low fat / Low cholesterol and 2000 mg Sodium Diet Activity Discharge Activity: Return to Normal Activity Follow Up Care Test Results: Test results from this visit will be discussed in further detail at your follow-up appointment, if applicable. Discharge Plan Admission Admit Date/Time: 05/22/21 21:19 Primary Reason for Your Visit: ABDOMINAL WALL CELLULITIS Attending Provider: Kimberly Mae Primary Care Provider: Migdalia Carroll NP Consulting Providers: Kyle Martinez ; Papi Kong ; Parker Kirkland ; Li Haque PRODUCTION SUPERVISOR TRAINEE Instructions Patient Instructions: ED Chest Pain, Noncardiac Additional Instructions / Restrictions: Continue to take all your antibiotics as prescribed. 2 weeks. Follow-up with your primary care doctor within 1-2 weeks. Discharge Orders/Prescriptions Prescriptions: New linezolid 600 mg tablet 600 mg PO BID 10 Days Qty: 20 RF: 0 glimepiride [Amaryl] 1 mg tablet 1 mg PO DAILY 30 Days Qty: 30 RF: 0 Continued methocarbamol 500 MG tablet 750 mg PO QHS RF: 0 gabapentin 300 MG capsule 300 mg PO BID RF: 0 metformin 850 MG tablet 850 mg PO BIDCM Qty: 60 RF: 0 lisinopril 10 mg tablet 10 mg PO DAILY RF: 0 buprenorphine 10 mcg/hour patch weekly 1 patch transdermal FR RF: 0 tamsulosin 0.4 mg capsule 0.4 mg PO DAILY RF: 0 oxycodone 5 mg tablet 5 mg PO BID RF: 0 dextroamphetamine-amphetamine [Adderall] 20 mg Tablet 20 mg PO DAILY RF: 0 Referrals / Follow Up: Migdalia Carroll PRODUCTION SUPERVISOR TRAINEE, PRODUCTION SUPERVISOR TRAINEE-C [Primary Care Provider] - Within 2 Weeks Disposition Disposition (needs filled in before D/C Order can be placed): Home, Self Care
--- NOTE | 2021-05-27 13:28 | DS.PCM_ITS ---
Providers Date of Admission: 05/22/21 Date of Discharge: 05/27/21 Primary Care Physician: LALITA Degroot Consultations 05/22/21 22:32 Consult: Infectious Disease Routine Consulting Provider: Kyle Martinez Reason for Consult: severe sepsis due to cellulitis in lower abd and left leg EMERGENT Consult: No Notified: Yes Date Notified: 05/23/21 Time Notified: 07:23 Method of Notification: Text Consult: [facility] Assistant Director / Pulmonary Medicine Routine Consulting Provider: Pulmonary Medicine cristi [place] Reason for Consult: severe sepsis due to cellulitis EMERGENT Consult: No Notified: Yes Date Notified: 05/22/21 Time Notified: 21:10 Method of Notification: Text Reason For Visit: SEVERE SEPSIS, SORIANO CIRRHSOSIS Diagnosis Discharge Diagnosis (1) Abdominal wall cellulitis: Status: Acute Code(s): L03.311 - Cellulitis of abdominal wall (2) Cellulitis of left lower leg: Status: Resolved Code(s): L03.116 - Cellulitis of left lower limb (3) Severe sepsis: Status: Resolved Code(s): A41.9 - Sepsis, unspecified organism; R65.20 - Severe sepsis without septic shock Medications at Discharge Home Medications methocarbamol 750 mg PO QHS 01/07/17 gabapentin 300 mg PO BID 02/11/19 metformin 850 mg PO BIDCM #60 tab 10/06/20 buprenorphine 1 patch TRANSDERMAL FR 04/05/21 lisinopril 10 mg PO DAILY 04/05/21 oxycodone 5 mg PO BID 04/05/21 tamsulosin 0.4 mg PO DAILY 04/05/21 dextroamphetamine-amphetamine [Adderall] 20 mg PO DAILY 05/22/21 glimepiride [Amaryl] 1 mg PO DAILY 30 Days #30 tab 05/27/21 linezolid 600 mg PO BID 10 Days #20 tab 05/27/21 Hospital Course Operations None Procedures 2-D Echocardiogram Summary of Care Provided Minutes Spent on Discharge: 45 Hospital Course: 46 y/o male with multiple co-morbidities who comes in with complaints of left leg redness as well as lower abdominal wall cellulitis, fever and chills ongoing for about 2 weeks. Patient had returned from vacation in [place] where he was remain in the beach. He has history of Soriano. On admission, he was febrile, he had left lower leg erythema. He was managed as severe sepsis secondary to abdominal wall and left leg cellulitis. Patient improved on IV vancomycin and Zosyn and doxycycline. ID and critical care were consulted. Blood cultures came back positive for MSSA. 2D echo was negative for vegetation. Repeat blood cultures was negative. Patient was discharged with 10 days of linezolid. He will follow-up with his primary care doctor within 1 to 2 weeks. Physical Exam Narrative GENERAL: alert, oriented x3, cooperative HEENT: Atraumatic; EYES; Anicteric, Normal Conjunctiva NECK; supple, normal thyroid, RESPIRATORY: CTA CARDIOVASCULAR: HS I +II, regular, no murmurs GI: Rash over anterior abdominal, erythema, soft, normoactive bowel sounds, nontender Medical Records Data Medical Nutrition Assessment Dietitian: Malnutrition Criteria Met Start: 05/23/21 10:01 Freq: Status: Active Protocol: Document 05/23/21 10:30 AG (Rec: 05/23/21 10:30 AG [id number]) Nutrition Malnutrition Evidence of Malnutrition Exists No Intake Problem Decreased Nutrient Needs (specify) Etiology (sodium) r/t SORIANO cirrhosis Signs/Symptoms as evidenced by recommended 2000mg sodium/day and estimated PO intake exceeding sodium recommendations Status Active Problem Recommendation Dietitian Recommendations/Changes will change diet to 2200 calorie controlled, sodium restricted Weight / BMI Weight Weight: 166.2 kg Body Mass Index (BMI) 44.4 ABG / Lab / Microbiology Data Result Diagrams: 05/27/21 11:26 05/27/21 11:26 Laboratory: Laboratory Results - last 24 hr 05/26/21 17:18: POC Glucose 186 H 05/26/21 21:45: POC Glucose 268 H 05/27/21 06:38: POC Glucose 153 H 05/27/21 11:26: Vancomycin Trough 15.5 H 05/27/21 11:26: WBC 2.5 L, RBC 3.72 L, Hgb 11.9 L, Hct 34.8 L, MCV 93.5, MCH 32.0, MCHC 34.2, RDW Std Deviation 49.8 H, RDW Coeff of Ramya 14.6, Plt Count 55 L , MPV 12.2 H, Immature Gran % (Auto) 0.400, Neut % (Auto) 53.9, Lymph % (Auto) 29.1, [place] % (Auto) 9.7, Eos % (Auto) 5.7 H, Baso % (Auto) 1.2 H, Absolute Neuts (auto) 1.3 L, Absolute Lymphs (auto) 0.72 L, Nucleated RBC % 0 05/27/21 11:26: Sodium 141, Potassium 4.2, Chloride 108 H, Carbon Dioxide 30.0, Anion Gap 3 L, BUN 7, Creatinine 0.53 L, Estim Creat Clear Calc 205.94, Est GFR (MDRD) Af Amer 216, Est GFR (MDRD) Non-Af 178, BUN/Creatinine Ratio 13.3, Glucose 236 H, Calcium 8.3 L, Total Bilirubin 1.10 H, AST 34, ALT 27, Alkaline Phosphatase 109, Total Protein 5.8 L, Albumin 2.6 L, Globulin 3.2, Albumin/G lobulin Ratio 0.8 L 05/27/21 11:49: POC Glucose 196 H Microbiology: Microbiology 05/25/21 09:00 Blood Culture (Wb) - Right Hand Blood Culture - Preliminary No growth in 48 hours. 05/22/21 19:21 Blood Culture (Wb) - Anticubital Left Blood Culture - Preliminary Staphylococcus aureus 05/22/21 19:33 Blood Culture (Wb) - Anticubital Right Blood Culture - Preliminary No growth in 48 hours. 05/22/21 21:27 Mucosa - Nose SARS-CoV-2 Antigen (Rapid) - Final D/C Instructions Discharge Diet: Low fat / Low cholesterol and 2000 mg Sodium Diet Meaningful Use Info Meaningful Use Diagnoses (Choose all that apply): None applicable Discharge Plan Admission Admit Date/Time: 05/22/21 21:19 Primary Reason for Your Visit: ABDOMINAL WALL CELLULITIS Attending Provider: Kimberly Mae Primary Care Provider: Migdalia Carroll NP Consulting Providers: Kyle Martinez ; Papi Kong ; Parker Kirkland ; Li Haque COMPUTER INSTALLATION ENGINEER Instructions Patient Instructions: ED Chest Pain, Noncardiac Additional Instructions / Restrictions: Continue to take all your antibiotics as prescribed. 2 weeks. Follow-up with your primary care doctor within 1-2 weeks. Discharge Orders/Prescriptions Prescriptions: New linezolid 600 mg tablet 600 mg PO BID 10 Days Qty: 20 RF: 0 glimepiride [Amaryl] 1 mg tablet 1 mg PO DAILY 30 Days Qty: 30 RF: 0 Continued methocarbamol 500 MG tablet 750 mg PO QHS RF: 0 gabapentin 300 MG capsule 300 mg PO BID RF: 0 metformin 850 MG tablet 850 mg PO BIDCM Qty: 60 RF: 0 lisinopril 10 mg tablet 10 mg PO DAILY RF: 0 buprenorphine 10 mcg/hour patch weekly 1 patch transdermal FR RF: 0 tamsulosin 0.4 mg capsule 0.4 mg PO DAILY RF: 0 oxycodone 5 mg tablet 5 mg PO BID RF: 0 dextroamphetamine-amphetamine [Adderall] 20 mg Tablet 20 mg PO DAILY RF: 0 Referrals / Follow Up: Migdalia Carroll COMPUTER INSTALLATION ENGINEER, COMPUTER INSTALLATION ENGINEER-C [Primary Care Provider] - Within 2 Weeks Disposition Disposition (needs filled in before D/C Order can be placed): Home, Self Care Charges/Coding Visit Charges Inpatient E&M: 73972 Disch Hosp
[2021-05-27 15:25] LABS: Pathologist Review Reviewed
--- NOTE | 2021-05-27 15:25 | PCM.PN.ID ---
Physical Exam Narrative Feeling well, rash much improved, no fever Const alert and no apparent distress General Appearance: cooperative Resp normal air movement and clear to auscultation bilaterally Cardio regular rate and regular rhythm GI normal to inspection, nondistended, normoactive bowel sounds Extremity General Extremity: edema Skin Skin Narrative: rash on BLE resolved, minimal abd redness ID ID: Route of nutrition/ use of supplements: [] Nutritional Intake: [] IV Site: [] Bernabe Catheter: [] Assessment & Plan Assessment/Plan (1) Severe sepsis: PLAN: No DVT on BLE doppler. Bcx with MSSA. Echo neg for veg. Rapid clearance of bcx and resolution of fever. Source is cellulitis. Ok for home with 10 more days linezolid. 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
[2021-05-27 15:31] LABS: Pathologist Review Reviewed
[2021-05-27 15:41] VITALS: BP 138/70; PULSE 78; RESP 18; TEMP 37.2; O2SAT 95
--- NOTE | 2021-05-28 13:04 | CASEMGMT ---
MARIA EUGENIA BERMUDEZ Discharge Follow-up Phone Call: AMARILIS: 13 Strata: 3 Call Date: 05/27/21 Discharge Date: 05/26/21 Time of Call: 1304 Duration: 1 min Admitting Diagnosis: Severe sepsis DEAN cirrhosis MARIA EUGENIA BERMUDEZ attempted to complete follow-up phone call after recent hospitalization. No answer, voice message left with return contact information.
== END 2021-05-27 15:40 | disposition home or self-care (01) | DRG 872 ==
LOC: ED 20:32 → ICU 21:51 → MS3 05-23 10:22
PROVIDERS: Internal Medicine; Internal Medicine Infectious Disease; Admitting Provider Internal Medicine; Emergency Provider Emergency Medicine; PCP Nurse Practitioner; Visit Provider Internal Medicine
DX: A41.9 Sepsis, unspecified organism (principal); L03.116 Cellulitis of left lower limb; L03.311 Cellulitis of abdominal wall; Z68.42 Body mass index [BMI] 45.0-49.9, adult; R65.20 Severe sepsis without septic shock; A49.01 Methicillin susceptible Staphylococcus aureus infection, unspecified site; K75.81 Nonalcoholic steatohepatitis (NASH); D69.59 Other secondary thrombocytopenia; K74.60 Unspecified cirrhosis of liver; N40.0 Benign prostatic hyperplasia without lower urinary tract symptoms; I10 Essential (primary) hypertension; Z66 Do not resuscitate; G89.4 Chronic pain syndrome; Z87.891 Personal history of nicotine dependence; E11.9 Type 2 diabetes mellitus without complications; G47.33 Obstructive sleep apnea (adult) (pediatric); Z91.19 Patient's noncompliance with other medical treatment and regimen
CPT/HCPCS: 36415; 80048; 80053; 80076; 80202; 81001; 82550; 82962; 83036; 83605; 83735; 84100; 85025; 85610; 85730; 87040; 87077; 87186; 87426; 93005; 93306; 93970; 97802; 99251; 99284; J7030; J7040; J7050; Q9957; A4216; C8929; G0463; J3490

== ENCOUNTER 2021-05-29 10:12 | Outpatient (RCR) | payer OTHER, SELFPAY | END 2021-05-29 10:13 | disposition home or self-care (01) | LOC: PT 10:12 | PROVIDERS: PCP Nurse Practitioner; Referring Provider Anesthesiology; Visit Provider Anesthesiology | DX: R69 Illness, unspecified (principal) ==

== ENCOUNTER → 2021-06-25 07:11 | Outpatient (CLI) | payer OTHER, SELFPAY ==
--- NOTE | 2021-06-25 07:21 | MRI_ITS ---
History: BACK PAIN, right leg pain Technique: T1 and T2 MR imaging of the lumbar spine performed without contrast enhancement in axial and sagittal planes. Comparison: July 05, 2019 Findings: Alignment of the lumbar vertebral bodies is normal. No bone that of edema. Mild disc space narrowing at L5-S1. Conus medullaris and cauda equina are normal. Paraspinal soft tissues are normal. L1-2: Mild disc bulging without significant impingement on the spinal canal or neuroforamina. L2-3: No disc protrusion. Normal caliber spinal canal and neural foramina. L3-4: No disc protrusion. Normal caliber spinal canal and neural foramina. L4-5: No disc protrusion. Normal caliber spinal canal. Mild narrowing of the right neural foramen related to lateral disc bulging unchanged from prior exam. L5-S1: Interval decrease in the size of the disc herniation. No significant impingement on the thecal sac. Mild narrowing of the neural foramina related to facet arthropathy and lateral disc osteophyte prominence. IMPRESSION: Resolving L5-S1 disc herniation. No spinal stenosis. Mild narrowing of the right L4-5 and bilateral L5-S1 neural foramina. at 1703 Reported and signed by: Jeremy Daily MD Electronically Signed: Jeremy Daily MD at 17:02 EDT Tel , Service support , MRI/Spine Lumbar (Routine)
== END ==
PROVIDERS: PCP Nurse Practitioner; Referring Provider Anesthesiology; Visit Provider Anesthesiology
DX: M54.16 Radiculopathy, lumbar region (principal)
CPT/HCPCS: 72148

== ENCOUNTER 2021-09-19 20:39 | Emergency (ER) | payer OTHER, SELFPAY ==
[2021-09-19 20:40] VITALS: BP 147/75; PULSE 91; RESP 18; TEMP 36.7; O2SAT 96; BMI 37.6
[2021-09-19 23:22] VITALS: BP 163/66; PULSE 90; RESP 16; O2SAT 99
[2021-09-20 00:07] LABS: Absolute Lymphocyte Count 1.16 X10^3/uL (0.83-4.51); Absolute Neutrophil Count 2.8 X10^3/uL (2.0-7.7); Basophil# 0.04 X10^3/uL; Basophil% 0.9 % (0-1); Eosinophil# 0.23 X10^3/uL; Eosinophils% 4.9 % (0-5); Hematocrit 36.1 % (40-54); Hemoglobin 12.5 g/dL (13.0-16.5); Lymphocyte # 1.16 X10^3/ul (0.83-4.51); Lymphocyte % 24.7 % (19-41); Mean Corp Hgb Conc 34.6 g/dL (32-36); Mean Corpuscular Hgb 31.9 pg (27.0-32.0); Mean Corpuscular Volume 92.1 fL (80-94); Mean Platelet Vol. 10.6 fl (6.2-12.0); Monocyte# 0.48 X10^3/uL; Monocyte% 10.2 % (0-10); NRBC Flagged by Analyzer 0 % (0-5); Neutrophil # 2.77 X10^3/uL (2.7-7.7); Neutrophil % 58.9 % (47-70); POSITIVE COUNT YES; Platelet Count 74 K/mm3 (150-450); RBC Distribution Width CV 14.8 % (11.6-14.6); RBC Distribution Width SD 50.2 fl (35.1-43.9); Red Blood Count 3.92 M/mm3 (4.6-6.2); White Blood Count 4.7 K/mm3 (4.4-11.0)
[2021-09-20 00:08] LABS: Differential Indicated SCAN CRITERIA MET
[2021-09-20] MEDS: Morphine 4 MG/ML Syringe IV (00:09)
[2021-09-20] MEDS: Ondansetron 4 MG/2 ML Vial IV (00:10)
[2021-09-20 00:25] LABS: Anion Gap 5 (5-15); BUN 9 mg/dL (7-18); BUN/Creat Ratio 12.7 RATIO (10-20); Calcium,Total 8.2 mg/dL (8.5-10.1); Chloride 112 mmol/L (98-107); Creatinine, Serum 0.71 mg/dL (0.70-1.30); EST Glomerular Filtration Rate 127 mL/min (>60); Est Glom Filt Rate - Afr Amer 153 mL/min (>60); Estimated Creatinine Clearance 153.73 ml/min; Glucose 212 mg/dL (74-106); Potassium 4.1 mmol/L (3.5-5.1); Sodium Level 142 mmol/L (136-145)
--- NOTE | 2021-09-20 01:19 | EDS_ITS ---
HPI History of Present Illness Chief Complaint: Lower Extremity Injury Informant: patient Onset/Context/Timing Onset: Days Context: Gradual Onset Current Severity: Mild Maximum Severity: Moderate Narrative Narrative: Patient presents secondary to right lower extremity redness and swelling. He states he started noticing pain around his right knee on Thursday, 4 days ago. 2 days later it turned slightly red and he went to urgent care. They started him on doxycycline and Keflex. He states in spite of that it continues to be red and swollen. He denies fever or chills. Patient does have a history of DVT but states he is not chronically on anticoagulants because of a history of liver cirrhosis. 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 Lumbar disc disease with radiculopathy Lumbar disc prolapse with compression radiculopathy Malnutrition Morbid obesity due to excess calories Other intervertebral disc degeneration, lumbar region Perianal abscess Spinal stenosis of lumbar region with neurogenic claudication Thrombocytopenia Ulcer of left ankle Ulcer of right lower extremity with fat layer exposed Venous insufficiency Home Medications methocarbamol 750 mg PO QHS 01/07/17 [History Last Taken 05/21/21] gabapentin 300 mg PO BID 02/11/19 [History Last Taken 05/22/21] metformin 850 mg PO BIDCM #60 tab 10/06/20 [Rx Last Taken 05/22/21] buprenorphine 1 patch TRANSDERMAL FR 04/05/21 [History Last Taken 05/17/21] lisinopril 10 mg PO DAILY 04/05/21 [History Last Taken 05/22/21] oxycodone 7.5 mg PO DAILY 04/05/21 [History Last Taken 05/22/21] tamsulosin 0.4 mg PO DAILY 04/05/21 [History Last Taken 05/21/21] dextroamphetamine-amphetamine [Adderall] 20 mg PO DAILY 05/22/21 [History Last Taken 05/08/21] cephalexin 500 mg PO DAILY 09/19/21 [History Last Taken Unknown] doxycycline monohydrate 100 mg PO BID 09/19/21 [History Last Taken Unknown] Allergy/AdvReac Type Severity Reaction Status Date / Time No Known Allergies Allergy Verified 09/19/21 23:15 Surgical History history incision and drainage perianal abscess (~10/05/20) History of gastric surgery Social History household members: spouse and children Smoking Status: Former smoker alcohol intake: current alcohol intake frequency: other substance use type: does not use ROS ROS ED Constitutional Constitutional ED: Denies chills or fever(s) Eyes Eyes: Denies change in vision ENT ENT ED: Denies sore throat Cardiovascular Cardiovascular: Denies chest pain Respiratory/Chest Respiratory/Chest: Denies cough or dyspnea Gastrointestinal Gastrointestinal: Denies abdominal pain, diarrhea, nausea or vomiting Musculoskeletal Musculoskeletal: Reports myalgias; Denies back pain Integumentary Reports rash Neurologic Neurologic: Denies headache(s) or weakness Allergic/Immunologic Allergic/Immunologic ED: Denies urticaria EXAM Physical Exam Const Vital Signs: 09/19/21 20:40 09/19/21 23:22 Temperature 98.0 F Temperature Source Temporal Pulse Rate 91 90 Respiratory Rate 18 16 Blood Pressure 147/75 H 163/66 H Blood Pressure Mean 99 98 Pulse Ox 96 99 Oxygen Delivery Method Room Air Room Air Positive well nourished and well developed General Appearance ED: well developed Eyes PERRL and EOMs intact bilaterally Neck no lymphadenopathy and supple Chest Wall inspection of chest normal and palpation of chest normal Resp normal respiratory effort and clear to auscultation bilaterally Cardio regular rate and regular rhythm GI normal to inspection, nondistended, normoactive bowel sounds and non-tender Palpation: soft Extremity Extremity Narrative: Patient has mild erythema over the right lower extremity and across the top of the right knee. Mild warmth noted. Good range of motion at the knee. Calf is swollen with slight tenderness. Palpable distal pulses. Neuro oriented x3 Sensorium / Orientation: alert Psych mental status grossly normal MDM MDM MDM Narrative Medical decision making narrative: Blood cultures, lab work obtained. Lab Data Attestation: I reviewed the patient's lab results. Labs: Laboratory Results - last 24 hr 09/19/21 09/20/21 23:50 00:00 WBC 4.7 RBC 3.92 L Hgb 12.5 L Hct 36.1 L MCV 92.1 MCH 31.9 MCHC 34.6 RDW Std Deviation 50.2 H RDW Coeff of Ramya 14.8 H Plt Count 74 L MPV 10.6 Immature Gran % (Auto) 0.400 Neut % (Auto) 58.9 Lymph % (Auto) 24.7 [place] % (Auto) 10.2 H Eos % (Auto) 4.9 Baso % (Auto) 0.9 Absolute Neuts (auto) 2.8 Absolute Lymphs (auto) 1.16 Nucleated RBC % 0 Sodium 142 Potassium 4.1 Chloride 112 H Carbon Dioxide 25.0 Anion Gap 5 BUN 9 Creatinine 0.71 Estim Creat Clear Calc 153.73 Est GFR (MDRD) Af Amer 153 Est GFR (MDRD) Non-Af 127 BUN/Creatinine Ratio 12.7 Glucose 212 H Calcium 8.2 L Treatment and Re-Evaluation Comments:: Lab work is unremarkable with a normal white count. He has not had a fever. My biggest concern at this point is possible DVT given his history. I am unable to get a venous ultrasound tonight. He will be given a dose of Lovenox and ultrasound for tomorrow will be ordered. He is to continue his current antibiotics. Discharge Plan Triage Chief Complaint: Lower Extremity Injury ED Provider: Milly Grady Dx/Rx/DC Orders Clinical Impression: Leg edema, right, Cellulitis Instructions: ED Cellulitis, ED Peripheral Edema, Unilateral Prescriptions: No Action methocarbamol 500 MG tablet 750 mg PO QHS RF: 0 gabapentin 300 MG capsule 300 mg PO BID RF: 0 metformin 850 MG tablet 850 mg PO BIDCM Qty: 60 RF: 0 lisinopril 10 mg tablet 10 mg PO DAILY RF: 0 buprenorphine 10 mcg/hour patch weekly 1 patch transdermal FR RF: 0 tamsulosin 0.4 mg capsule 0.4 mg PO DAILY RF: 0 oxycodone 5 mg tablet 7.5 mg PO DAILY RF: 0 dextroamphetamine-amphetamine [Adderall] 20 mg Tablet 20 mg PO DAILY RF: 0 doxycycline monohydrate 100 mg capsule 100 mg PO BID RF: 0 cephalexin 500 mg capsule 500 mg PO DAILY RF: 0 Other Ambulatory Orders: Venous Duplex US, Unilateral (Routine) Facility: [facility] - Location: [facility] Ordered By: Dr. Milly Grady Primary Care Provider: Migdalia Carroll PROJECT COACH Referrals: Migdalia Carroll PROJECT COACH, PROJECT COACH-C [Primary Care Provider] - 5-7 Days Disposition Disposition: Home, Self Care
[2021-09-20 01:26] LABS: Differential Comment SCANNED; Platelet Estimate SLT DEC (ADEQ)
[2021-09-20 01:28] VITALS: BP 159/70; PULSE 89; RESP 18; TEMP 36.8; O2SAT 98
[2021-09-20] MEDS: Enoxaparin 120 MG/0.8 ML Syringe SC (01:38)
[2021-09-20 01:39] VITALS: BP 150/87
== END 2021-09-20 01:40 | disposition home or self-care (01) ==
PROVIDERS: Emergency Provider Emergency Medicine; PCP Nurse Practitioner
DX: L03.115 Cellulitis of right lower limb (principal); Z87.891 Personal history of nicotine dependence; D69.6 Thrombocytopenia, unspecified; E11.9 Type 2 diabetes mellitus without complications; I87.2 Venous insufficiency (chronic) (peripheral); M10.9 Gout, unspecified; Z79.84 Long term (current) use of oral hypoglycemic drugs; Z86.718 Personal history of other venous thrombosis and embolism; K74.60 Unspecified cirrhosis of liver; K75.81 Nonalcoholic steatohepatitis (NASH)
CPT/HCPCS: 80048; 85025; 87040; 96372; 96374; 96375; 99283; A4216; J2405

== ENCOUNTER → 2021-09-20 10:49 | Outpatient (CLI) | payer OTHER, SELFPAY ==
--- NOTE | 2021-09-20 10:52 | VDLE_ITS ---
Reason For Study: Swelling RIGHT GSV is normal. CFV is compressible, spontaneous, phasic, competent and demonstrates normal augmentation. FV is compressible, spontaneous, phasic, competent and demonstrates normal augmentation. POP V is compressible, spontaneous, phasic, competent and demonstrates normal augmentation. T/P Trunk is compressible. PTV is compressible. RT PerV is compressible. Procedure This is a venous duplex using B-mode, color flow and spectral Doppler. Exam performed in department. A preliminary report was called and/or faxed to PCP: Carly. Pt seen in ED 09/19/2021. VL/Venous Duplex US, Unilateral Interpretation Summary There is no evidence of right lower extremity deep vein thrombosis. Right great saphenous vein appears patent and compressible segmentally. Ordering Physician: Milly Grady Referring Physician: Migdalia Carroll Performed By: Mitzi Nash RVT
== END ==
PROVIDERS: PCP Nurse Practitioner; Referring Provider Emergency Medicine; Visit Provider Emergency Medicine
DX: R22.41 Localized swelling, mass and lump, right lower limb (principal)
CPT/HCPCS: 93971

== ENCOUNTER 2021-09-24 16:42 | Emergency (ER) | payer OTHER, SELFPAY ==
[2021-09-24 16:43] VITALS: BP 146/96; PULSE 105; RESP 18; TEMP 36.3; O2SAT 97; BMI 45.0
== END 2021-09-24 16:54 ==
LOC: ED 17:01
PROVIDERS: PCP Nurse Practitioner
DX: L03.90 Cellulitis, unspecified (principal)

== ENCOUNTER 2021-11-01 11:08 | Outpatient (CLI) | payer OTHER, SELFPAY ==
--- NOTE | 2021-11-01 11:12 | RAD_ITS ---
STUDY: X-RAY - LUMBAR SPINE REASON FOR EXAM: Male, 46 years old. Low back pain TECHNIQUE: 2 view(s) of the lumbar spine were obtained. COMPARISON: None FINDINGS: Normal lumbar lordosis. There is no substantial scoliosis. There is a normal alignment of the vertebrae. Normal vertebral bodies and endplates. Normal disc space heights except for mild narrowing at L5/S1. There is no demonstrated fracture. The soft tissue structures are unremarkable. RAD/Lumbar Spine 2 or 3 Views IMPRESSION: Mild degenerative changes at L5/S1, otherwise unremarkable lumbar spine Electronically Signed: Srinivasa Ac MD at 13:31 EST , Service support ,
== END 2021-11-01 23:59 | disposition short-term general hospital (02) ==
LOC: RAD 11:11
PROVIDERS: PCP Nurse Practitioner; Referring Provider Anesthesiology Pain Medicine; Visit Provider Anesthesiology Pain Medicine
DX: M47.898 Other spondylosis, sacral and sacrococcygeal region (principal)
CPT/HCPCS: 72100

== ENCOUNTER 2021-12-25 11:31 | Observation (INO) | payer OTHER, SELFPAY ==
[2021-12-25] VITALS (7 sets, daily range): BP systolic 104–155; BP diastolic 57–72; PULSE 75–117; RESP 9–18; TEMP 36.8–37.1; O2SAT 92–97; BMI 41.3; BMI 41.5
--- NOTE | 2021-12-25 11:46 | EKG12_ITS ---
Test Reason : Blood Pressure : / mmHG Vent. Rate : 086 BPM Atrial Rate : 086 BPM P-R Int : 172 ms QRS Dur : 084 ms QT Int : 370 ms P-R-T Axes : 054 026 059 degrees QTc Int : 442 ms Normal sinus rhythm Septal infarct , age undetermined Abnormal ECG Confirmed by MICHAEL CULLNE, PHIL ([id number]), editor news ADRIÁN VELASQUEZ ([id number]) on 12/27/2021 7:22:37 AM Referred By: Confirmed By:ISACC RODRIGUEZ MD
--- NOTE | 2021-12-25 11:47 | EDS_ITS ---
HPI History of Present Illness Chief Complaint: Cellulitis Narrative Narrative: Patient with past medical history of nonalcoholic cirrhosis of the liver, varices, hypertension, borderline diabetes, and multiple episodes of cellulitis of his lower extremities presents with cellulitis of his left thigh that began yesterday. He states that 2 weeks ago he had cellulitis on his right thigh which cleared with doxycycline somewhat. He said he stopped taking it, the cellulitis reappeared. He has frequent bouts of this, and states that he has had it at least 20 times. His last hospitalization was at [facility]. He also states that it spreads rapidly and he becomes septic. He denies any fevers or chills but noticed redness of his left thigh yesterday. He states he called his primary care physician and was told to go to urgent care to get put on antibiotics, and had an appointment today with Dr. Box. He saw someone else in the office who told him to come to the emergency department for IV antibiotics because he states that vancomycin and another antibiotic are the only things that work for his cellulitis. He states there was a small spot on his posterior thigh yesterday which to his left inner thigh today. [facility] Medical History (Updated 12/25/21 @ 14:37 by Jovan Montes MD) Cellulitis Cellulitis of left ankle Depression Diabetes mellitus with complication DVT (deep venous thrombosis) Edema Gout attack Insomnia Intervertebral disc disorder with radiculopathy of lumbar region Liver cirrhosis secondary to DENA Lumbar disc disease with radiculopathy Lumbar disc prolapse with compression radiculopathy Malnutrition Morbid obesity due to excess calories Other intervertebral disc degeneration, lumbar region Perianal abscess Spinal stenosis of lumbar region with neurogenic claudication Thrombocytopenia Ulcer of left ankle Ulcer of right lower extremity with fat layer exposed Venous insufficiency Home Medications methocarbamol 750 mg PO QHS 01/07/17 [History Last Taken 12/24/21] gabapentin 300 mg PO BID 02/11/19 [History Last Taken 12/25/21] metformin 850 mg PO BIDCM #60 tab 10/06/20 [Rx Last Taken 12/25/21] buprenorphine 1 patch TRANSDERMAL FR 04/05/21 [History Last Taken 12/20/21] lisinopril 10 mg PO DAILY 04/05/21 [History Last Taken 12/25/21] oxycodone 2.5 mg PO DAILY 04/05/21 [History Last Taken 12/25/21] tamsulosin 0.4 mg PO DAILY 04/05/21 [History Last Taken 12/24/21] dextroamphetamine-amphetamine [Adderall] 20 mg PO DAILY 05/22/21 [History Last Taken 12/25/21] doxycycline monohydrate 100 mg PO BID 09/19/21 [History Last Taken 12/25/21] lamotrigine 100 mg PO DAILY 12/25/21 [History Last Taken 12/25/21] omeprazole 40 mg PO DAILY 12/25/21 [History Last Taken 12/25/21] oxycodone 5 mg PO DAILY 12/25/21 [History Last Taken 12/24/21] quetiapine 50 mg PO DAILY 12/25/21 [History Last Taken 12/24/21] sildenafil 50 mg PO X1 PRN 12/25/21 [History Last Taken Unknown] Allergy/AdvReac Type Severity Reaction Status Date / Time No Known Allergies Allergy Verified 12/25/21 11:34 Surgical History history incision and drainage perianal abscess (~10/05/20) History of gastric surgery Social History household members: spouse and children Smoking Status: Former smoker alcohol intake: current alcohol intake frequency: other substance use type: does not use ROS ROS ED ROS Narrative Constitutional: No fever, no chills. HEENT: No sore throat. No neck pain. No loss of vision. No rhinorrhea. Cardiovascular: No chest pain. No palpitations. No pedal edema. Respiratory: No cough, no shortness of breath. Abdominal: No abdominal pain. No nausea. No vomiting. Genitourinary: No dysuria. No hematuria. Musculoskeletal: No myalgias. No arthralgias. Neurologic: No headaches. No dizziness. No lightheadedness. Skin: No rash. Cellulitis of left thigh. Positive redness/erythema. Psychiatric: No depression. No anxiety. EXAM Physical Exam Narrative Exam Narrative: Afebrile. Vital signs noted. HEENT: Normocephalic. Atraumatic. PERRL, EOMI. Neck soft and supple. No point tenderness or step off. Cardiovascular: Positive tachycardia.. No murmurs, rubs, or gallops appreciated. Respiratory: No tachypnea. Lungs clear to auscultation bilaterally. Gastrointestinal: Abdomen soft, nontender, with normoactive bowel sounds. No rebound or guarding. Neurological: Awake. Alert. Nonfocal, nonlateralizing. Skin: No rash. Moderately sized patch of cellulitis with warmth and redness on left inner thigh. Full range of motion of joints. Palpable dorsalis pedis pulse. Musculoskeletal: No pedal edema. Full range of motion extremities. Const Vital Signs: 12/25/21 11:32 12/25/21 12:01 12/25/21 12:16 Temperature 98.7 F 98.3 F Temperature Source Temporal Oral Pulse Rate 117 H 91 Respiratory Rate 16 16 Respiratory Effort Normal Non-Labored Respiratory Pattern Normal Blood Pressure 155/72 H 132/59 H Blood Pressure Mean 99 83 Pulse Ox 97 95 Oxygen Delivery Method Room Air Room Air 12/25/21 12:34 12/25/21 13:03 12/25/21 14:33 Temperature 98.2 F 98.3 F 98.7 F Temperature Source Oral Oral Oral Pulse Rate 75 78 87 Respiratory Rate 17 16 13 Respiratory Effort Respiratory Pattern Blood Pressure 104/58 L 119/57 L 117/58 L Blood Pressure Mean 73 77 77 Pulse Ox 95 95 97 Oxygen Delivery Method Room Air Room Air Room Air MDM MDM MDM Narrative Medical decision making narrative: Comprehensive work-up was pursued. He does have a chronically low WBC count of 3.5. Hemoglobin normal at 14.3. He has chronic thrombocytopenia with platelet count of 56. INR normal at 1.5. Electrolyte panel/CMP shows a glucose of 200 with anion gap normal at 6. He states he is borderline diabetic. Total bilirubin is elevated 2.6 which is also chronic. Urinalysis shows no evidence of infection. There are red blood cells contained within. His lactic acid is elevated at 3.1. My interpretation of his chest x-ray shows normal, no acute process. No infiltrate or pneumothorax. Radiology confirms this. He was started on antibiotics in the form of Zosyn and vancomycin. Given his cellulitis, elevated lactic acid, he will be placed on observation after discussion with Dr. Julio. Patient will be assigned to observation on the general medical floor. He is in stable condition. He did request pain medication and was administered morphine for analgesia. Lab Data Labs: Laboratory Results - last 24 hr 12/25/21 12/25/21 12/25/21 12:00 12:00 12:00 WBC 3.5 L RBC 4.43 L Hgb 14.3 Hct 40.5 MCV 91.4 MCH 32.3 H MCHC 35.3 RDW Std Deviation 48.5 H RDW Coeff of Ramya 14.5 Plt Count 56 L MPV 11.8 Immature Gran % (Auto) 0.300 Neut % (Auto) 54.9 Lymph % (Auto) 29.2 Milam % (Auto) 9.1 Eos % (Auto) 5.1 H Baso % (Auto) 1.4 H Absolute Neuts (auto) 1.9 L Absolute Lymphs (auto) 1.03 Nucleated RBC % 0 PT 17.2 H INR 1.5 APTT 43.2 H Sodium 138 Potassium 3.6 Chloride 106 Carbon Dioxide 26.0 Anion Gap 6 BUN 8 Creatinine 0.89 Estim Creat Clear Calc 122.64 Est GFR (MDRD) Af Amer 118 Est GFR (MDRD) Non-Af 97 BUN/Creatinine Ratio 9.0 L Glucose 200 H Lactic Acid Calcium 8.5 Total Bilirubin 2.60 H AST 33 ALT 28 Alkaline Phosphatase 97 Total Protein 6.5 Albumin 2.9 L Globulin 3.6 Albumin/Globulin Ratio 0.8 L Urine Color Urine Clarity Urine pH Ur Specific [place] Urine Protein Urine Glucose (UA) Urine Ketones Urine Occult Blood Urine Nitrite Urine Bilirubin Urine Urobilinogen Ur Leukocyte Esterase Urine RBC Urine WBC Ur Squamous Epith Cells Urine Bacteria Urine Mucus 12/25/21 12/25/21 12:00 12:10 WBC RBC Hgb Hct MCV MCH MCHC RDW Std Deviation RDW Coeff of Ramya Plt Count MPV Immature Gran % (Auto) Neut % (Auto) Lymph % (Auto) [place] % (Auto) Eos % (Auto) Baso % (Auto) Absolute Neuts (auto) Absolute Lymphs (auto) Nucleated RBC % PT INR APTT Sodium Potassium Chloride Carbon Dioxide Anion Gap BUN Creatinine Estim Creat Clear Calc Est GFR (MDRD) Af Amer Est GFR (MDRD) Non-Af BUN/Creatinine Ratio Glucose Lactic Acid 3.1 H* Calcium Total Bilirubin AST ALT Alkaline Phosphatase Total Protein Albumin Globulin Albumin/Globulin Ratio Urine Color Yellow Urine Clarity Sl. Cloudy Urine pH 6.0 Ur Specific [place] 1.020 Urine Protein 30 H Urine Glucose (UA) Normal Urine Ketones 5 H Urine Occult Blood 250 H Urine Nitrite Negative Urine Bilirubin 1 H Urine Urobilinogen 1 H Ur Leukocyte Esterase 25 H Urine RBC 25-50 SEEN Urine WBC 0-5 SEEN Ur Squamous Epith Cells 0-5 SEEN Urine Bacteria 0 SEEN Urine Mucus 0 SEEN Radiography Diagnostic Testing: Clinical Impression(s) from Imaging Studies Chest X-Ray 12/25/21 12:34 IMPRESSION: Stable, nonacute portable x-ray examination of the chest. Electronically Signed: Desmond Zamora MD (Brooks) at 12:55 EDT Reading Location ID and State: [address] [place] [address] , Service support , Discharge Plan Dx/Rx/DC Orders Clinical Impression: Cellulitis of left thigh, Thrombocytopenia, Lactic acidosis Disposition Disposition: Acute Care Hospital [facility]
[2021-12-25] MEDS: 0.9% Normal Saline 1,000 ML 999 ML IV (12:12)
[2021-12-25 12:13] LABS: Absolute Lymphocyte Count 1.03 X10^3/uL (0.83-4.51); Absolute Neutrophil Count 1.9 X10^3/uL (2.0-7.7); Basophil# 0.05 X10^3/uL; Basophil% 1.4 % (0-1); Eosinophil# 0.18 X10^3/uL; Eosinophils% 5.1 % (0-5); Hematocrit 40.5 % (40-54); Hemoglobin 14.3 g/dL (13.0-16.5); Lymphocyte # 1.03 X10^3/ul (0.83-4.51); Lymphocyte % 29.2 % (19-41); Mean Corp Hgb Conc 35.3 g/dL (32-36); Mean Corpuscular Hgb 32.3 pg (27.0-32.0); Mean Corpuscular Volume 91.4 fL (80-94); Mean Platelet Vol. 11.8 fl (6.2-12.0); Monocyte# 0.32 X10^3/uL; Monocyte% 9.1 % (0-10); NRBC Flagged by Analyzer 0 % (0-5); Neutrophil # 1.94 X10^3/uL (2.7-7.7); Neutrophil % 54.9 % (47-70); POSITIVE COUNT YES; Platelet Count 56 K/mm3 (150-450); RBC Distribution Width CV 14.5 % (11.6-14.6); RBC Distribution Width SD 48.5 fl (35.1-43.9); Red Blood Count 4.43 M/mm3 (4.6-6.2); White Blood Count 3.5 K/mm3 (4.4-11.0)
[2021-12-25 12:14] LABS: Bacteria 0 SEEN /hpf (None Seen); Mucous, Urine 0 SEEN /hpf (<or=2+)
[2021-12-25 12:16] LABS: Color, Urine Yellow (Yellow); Glucose, Dipstick Normal (Normal); Ketone-Dipstick 5 mg/dl (Negative); Leukocyte Esterase-Dipstick 25 /ul (Negative); Nitrite-Dipstick Negative (Negative); Occult Blood-Urine 250 /ul (Negative); Protein-Dipstick 30 mg/dl (Negative); Urine Bilirubin Dipstick 1 mg/dL (Negative); Urine Clarity Sl. Cloudy (Clear); Urine Urobilinogen 1 mg/dl (Normal)
[2021-12-25 12:24] LABS: ALB/GLOB Ratio 0.8 RATIO (0.9-2.4); AST(SGOT) 33 U/L (15-37); Alanine Aminotransfer ALT/SGPT 28 U/L (16-61); Albumin, Serum 2.9 g/dL (3.2-5.0); Alkaline Phosphatase 97 U/L (45-117); Anion Gap 6 (5-15); BUN 8 mg/dL (7-18); Calcium,Total 8.5 mg/dL (8.5-10.1); Chloride 106 mmol/L (98-107); Creatinine, Serum 0.89 mg/dL (0.70-1.30); EST Glomerular Filtration Rate 97 mL/min (>60); Est Glom Filt Rate - Afr Amer 118 mL/min (>60); Estimated Creatinine Clearance 122.64 ml/min; Globulin 3.6 g/dL (2.2-4.2); Glucose 200 mg/dL (74-106); Potassium 3.6 mmol/L (3.5-5.1); Protein, Total 6.5 g/dL (6.4-8.2); Sodium Level 138 mmol/L (136-145)
[2021-12-25 12:24] LABS: Red Blood Cells-Urine 25-50 SEEN /hpf (0-5)
[2021-12-25 12:25] LABS: Squamous Epithelial Cells - UA 0-5 SEEN /hpf (0-5); White Blood Cells 0-5 SEEN /hpf (0-5)
[2021-12-25 12:28] LABS: International Normalized Ratio 1.5; Partial Thromboplast Time 43.2 Seconds (24.1-36.2); Prothrombin Time (Protime)PT. 17.2 SECONDS (11.7-14.9)
--- NOTE | 2021-12-25 12:34 | RAD_ITS ---
STUDY: X-RAY CHEST REASON FOR EXAM: Male, 46 years old. Tachycardia Pat states cellulitis in upper left thigh. pt states hx of the same multiple times. pt started antibiotics yesterday but it is 3x worse today TECHNIQUE: AP COMPARISON: 07/05/2020 FINDINGS: The lungs are clear and expanded. There is no demonstrated pleural abnormality. Normal size heart. Normal mediastinum and akil. Normal visualized pulmonary arteries. Normal visualized aortic arch and descending thoracic aorta. Normal visualized thoracic spine. Normal visualized ribs, clavicles, and shoulders. There is no demonstrated abnormality of the visualized soft tissue structures of the upper abdomen. RAD/Chest 1 View (Portable) IMPRESSION: Stable, nonacute portable x-ray examination of the chest. Electronically Signed: Desmond Zamora MD (Brooks) at 12:55 EDT ,
[2021-12-25 12:40] LABS: Lactic Acid 3.1 mmol/L (0.4-1.9)
[2021-12-25] MEDS: Morphine 4 MG/ML Syringe IV (13:44)
--- NOTE | 2021-12-25 14:22 | HP.PCM.HOS_ITS ---
HPI - General General Date of Admission: 12/25/21 Date of Service: 12/25/21 Chief Complaint: Cellulitis of the left upper leg HPI Narrative LIBRADO CARLSON, is a 46 M who presents to the emergency room at [facility] with a chief complaint of increased redness and warmth of his left upper leg, patient has had a history of cellulitis before, he was started on antibiotics yesterday by his PCP, he is reevaluated today and was told to go to the ER for assessment. Labs were obtained in the emergency room, patient's white blood cell count was low at 3.5, platelet count was 56,000, patient's history profile was unremarkabl e except for glucose of 200. Patient's lactic acid was elevated at 3.1, patient's total bilirubin was 2.6. Patient's urinalysis was unremarkable, at the time my examination patient was not tachypneic or tachycardic, his blood pressure was normal, the patient was afebrile. Patient will be placed in observation status on MedSurg for cellulitis of the left upper leg, I will place him on Ancef and vancomycin IV, he will be reevaluated tomorrow, emergency room physician ordered blood cultures on the patient. [facility] Medical History (Updated 12/25/21 @ 12:06 by Rebecca De Santiago) Cellulitis Cellulitis of left ankle Depression Diabetes mellitus with complication DVT (deep venous thrombosis) Edema Gout attack Insomnia Intervertebral disc disorder with radiculopathy of lumbar region Liver cirrhosis secondary to DEAN Lumbar disc disease with radiculopathy Lumbar disc prolapse with compression radiculopathy Malnutrition Morbid obesity due to excess calories Other intervertebral disc degeneration, lumbar region Perianal abscess Spinal stenosis of lumbar region with neurogenic claudication Thrombocytopenia Ulcer of left ankle Ulcer of right lower extremity with fat layer exposed Venous insufficiency Home Medications methocarbamol 750 mg PO QHS 01/07/17 [History Last Taken 12/24/21] gabapentin 300 mg PO BID 02/11/19 [History Last Taken 12/25/21] metformin 850 mg PO BIDCM #60 tab 10/06/20 [Rx Last Taken 12/25/21] buprenorphine 1 patch TRANSDERMAL FR 04/05/21 [History Last Taken 12/20/21] lisinopril 10 mg PO DAILY 04/05/21 [History Last Taken 12/25/21] oxycodone 2.5 mg PO DAILY 04/05/21 [History Last Taken 12/25/21] tamsulosin 0.4 mg PO DAILY 04/05/21 [History Last Taken 12/24/21] dextroamphetamine-amphetamine [Adderall] 20 mg PO DAILY 05/22/21 [History Last Taken 12/25/21] doxycycline monohydrate 100 mg PO BID 09/19/21 [History Last Taken 12/25/21] lamotrigine 100 mg PO DAILY 12/25/21 [History Last Taken 12/25/21] omeprazole 40 mg PO DAILY 12/25/21 [History Last Taken 12/25/21] oxycodone 5 mg PO DAILY 12/25/21 [History Last Taken 12/24/21] quetiapine 50 mg PO DAILY 12/25/21 [History Last Taken 12/24/21] sildenafil 50 mg PO X1 PRN 12/25/21 [History Last Taken Unknown] Allergy/AdvReac Type Severity Reaction Status Date / Time No Known Allergies Allergy Verified 12/25/21 11:34 Surgical History history incision and drainage perianal abscess (~10/05/20) History of gastric surgery Social History household members: spouse and children Smoking Status: Former smoker alcohol intake: current alcohol intake frequency: other substance use type: does not use ROS Constitutional Constitutional: Denies anorexia, change in weight, fever(s), night sweats or weakness Eyes Eyes: Denies blurry vision, change in vision, discharge from eye(s) or eye pain Cardiovascular Cardiovascular: Denies chest pain, claudication, edema or palpitations Respiratory/Chest Respiratory/Chest: Denies cough, hemoptysis, shortness of breath at rest or shortness of breath with exertion Gastrointestinal Gastrointestinal: Denies abdominal pain, constipation, diarrhea, hematemesis, hematochezia, melena, nausea or vomiting Genitourinary Genitourinary: Denies dysuria, hematuria, urinary frequency, urinary hesitancy, urinary incontinence or urinary urgency Musculoskeletal Musculoskeletal: Denies back pain, joint pain, joint stiffness, joint swelling, myalgias or neck pain Neurologic Neurologic: Denies abnormal gait, abnormal speech, dizziness, focal weakness, headache(s), loss of vision, numbness, other visual disturbances, paresthesias, syncope or tingling Psychiatric Psychiatric: Denies anxiety, cognitive impairment, depression, irritability, mood swings or suicidal ideation Endocrine Endocrinology: Denies change in body appearance, cold intolerance, excessive sweating, heat intolerance, polydipsia or polyuria Hematologic/Lymphatic Hematologic/Lymphatic: Denies none, anemia, easy bleeding, easy bruising or lymphadenopathy Allergic/Immunologic Allergic/Immunologic: Denies rhinitis, urticaria, eczemia or asthma Vital Signs Vital Signs Vital Signs: 12/25/21 11:32 12/25/21 12:01 12/25/21 12:16 Temperature 98.7 F 98.3 F Temperature Source Temporal Oral Pulse Rate 117 H 91 Respiratory Rate 16 16 Respiratory Effort Normal Non-Labored Respiratory Pattern Normal Blood Pressure 155/72 H 132/59 H Blood Pressure Mean 99 83 Pulse Ox 97 95 Oxygen Delivery Method Room Air Room Air 12/25/21 12:34 12/25/21 13:03 Temperature 98.2 F 98.3 F Temperature Source Oral Oral Pulse Rate 75 78 Respiratory Rate 17 16 Respiratory Effort Respiratory Pattern Blood Pressure 104/58 L 119/57 L Blood Pressure Mean 73 77 Pulse Ox 95 95 Oxygen Delivery Method Room Air Room Air Weight Weight: 150 kg Body Mass Index (BMI) 41.3 Physical Exam Const alert, oriented x3, no apparent distress and healthy appearing General Appearance: cooperative, well kempt and well developed Orientation / Consciousness: awake, oriented to person, oriented to place and oriented to time HEENT normocephalic, head/scalp atraumatic, hearing grossly normal bilaterally and moist oral mucous membranes Eyes PERRL, EOMs intact bilaterally and conjunctivae normal Neck nuchal rigidity, supple, no JVD, thyroid normal and no carotid bruits General: trachea midline Resp normal respiratory effort, no retractions, no use of accessory muscles and clear to auscultation bilaterally Auscultation: Negative for rales, rhonchi or wheezes Cardio regular rate, regular rhythm, S1 normal heart sound, S2 normal heart sound, no murmurs, no rub and no gallops GI normal to inspection, nondistended, normoactive bowel sounds, soft to palpation, non-tender and non-distended Extremity Extremity Narrative: There is a large area of rash over the patient's left inner and posterior thigh area, this area is warm to the touch, and does not appear overtly tender however. Skin Skin Narrative: Redness is noted of the patient's left upper leg, the area is several centimeters in diameter and encompasses the left inner thigh and posterior thigh area. There are also superficial eschared areas noted over the patient's left upper leg-no drainage is noted from these areas. General Skin Exam: no breakdown Neuro oriented x3, CN's II-XII intact bilaterally, no focal motor deficits and no sensory deficits noted Sensorium / Orientation: awake and alert Speech: speech normal Psych affect normal Results Lab / Micro Data Result Diagrams: 12/25/21 12:00 12/25/21 12:00 Labs: Laboratory Results - last 24 hr 12/25/21 12:00: WBC 3.5 L, RBC 4.43 L, Hgb 14.3, Hct 40.5, MCV 91.4, MCH 32.3 H, MCHC 35.3, RDW Std Deviation 48.5 H, RDW Coeff of Ramya 14.5, Plt Count 56 L, MPV 11.8, Immature Gran % (Auto) 0.300, Neut % (Auto) 54.9, Lymph % (Auto) 29.2, [place] % (Auto) 9.1, Eos % (Auto) 5.1 H, Baso % (Auto) 1.4 H, Absolute Neuts (auto) 1.9 L, Absolute Lymphs (auto) 1.03, Nucleated RBC % 0 12/25/21 12:00: PT 17.2 H, INR 1.5, APTT 43.2 H 12/25/21 12:00: Sodium 138, Potassium 3.6, Chloride 106, Carbon Dioxide 26.0, Anion Gap 6, BUN 8, Creatinine 0.89, Estim Creat Clear Calc 122.64, Est GFR (MDRD) Af Amer 118, Est GFR (MDRD) Non-Af 97, BUN/Creatinine Ratio 9.0 L, Glucose 200 H, Calcium 8.5, Total Bilirubin 2.60 H, AST 33, ALT 28, Alkaline Phosphatase 97, Total Protein 6.5, Albumin 2.9 L, Globulin 3.6, Albumin/Globulin Ratio 0.8 L 12/25/21 12:00: Lactic Acid 3.1 H* 12/25/21 12:10: Urine Color Yellow, Urine Clarity Sl. Cloudy, Urine pH 6.0, Ur Specific [place] 1.020, Urine Protein 30 H, Urine Glucose (UA) Normal, Urine K etones 5 H, Urine Occult Blood 250 H, Urine Nitrite Negative, Urine Bilirubin 1 H, Urine Urobilinogen 1 H, Ur Leukocyte Esterase 25 H, Urine RBC 25-50 SEEN, Urine WBC 0-5 SEEN, Ur Squamous Epith Cells 0-5 SEEN, Urine Bacteria 0 SEEN, Urine Mucus 0 SEEN Radiology Impression Chest X-Ray 12/25/21 12:34 IMPRESSION: Stable, nonacute portable x-ray examination of the chest. Electronically Signed: Desmond Zamora MD (Brooks) at 12:55 EDT Reading Location ID and State: [address] [place] [address] , Service support , Assessment & Plan Assessment/Plan (1) Liver cirrhosis secondary to DEAN: PLAN: 1. Cellulitis of the left upper leg-patient will be admitted placed in observation on MedSurg, he will receive IV vancomycin and IV Ancef, he will be reevaluated tomorrow, repeat CBC will be obtained tomorrow as well as a repeat chemistry panel. #2 nonalcoholic cirrhosis of the liver-patient has a history of this disorder, his platelet count is low and his white blood cell count is low which appears to be chronic in nature. Patient's bilirubin is usually elevated slightly also. #3 increased lactic acid-etiology unclear, I do not feel the patient has sepsis at this time, blood cultures were obtained in the emergency room. #4 morbid obesity-complicates care and recovery #5 essential hypertension-patient will remain on his present medication #6 chronic depression/anxiety-patient will remain on his present medications he takes as an outpatient. #7 type 2 diabetes-patient's blood sugars will be monitored, sliding scale insulin will be used, due to his elevated lactic acid, his Metformin will be held #8 degenerative disc disease of the lumbar spine with radiculopathy-patient is on gabapentin and buprenorphine patch, this will be continued #9 ADHD-patient is on Adderall 20 mg daily, this will be continued in the hospital Charges/Coding Visit Charges OBSV E&M: 24092 Initial observation care L3
[2021-12-25 16:06] LABS: Reflex Lactate? Y
[2021-12-25 17:21] LABS: Lactic Acid 1.6 mmol/L (0.4-1.9)
[2021-12-25 21:51] LABS: Bedside Glucose 135 mg/dL (74-106)
[2021-12-25] MEDS: Cefazolin 2 GM in 0.9% Normal Saline 100 ML IV (22:22)
[2021-12-25] MEDS: lamoTRIgine 100 MG Tablet PO (22:23)
[2021-12-25] MEDS: Tamsulosin HCl 0.4 MG Capsule PO (22:23)
[2021-12-25] MEDS: QUEtiapine 25 MG Tablet 50 MG PO (22:24)
[2021-12-25] MEDS: Gabapentin 300 MG Capsule PO (22:24)
[2021-12-25] MEDS: Methocarbamol 750 MG Tablet PO (22:24)
[2021-12-25] MEDS: oxyCODONE 5 MG Tablet PO (22:34)
--- NOTE | 2021-12-25 22:51 | PCM.RX.CS ---
Consult Pharmacy has been consulted to manage selected antiobiotic: Vancomycin Type of Consult: New start Suspected Infection: Skin/Soft tissue Prior Doses of Antibiotics Received/Current Regimen: Medications Vancomycin HCl 1,750 mg/ (Sodium Chloride) 535 mls @ 250 mls/hr IV Q12H OPAL Discontinued Medications Vancomycin HCl 2,000 mg/ (Sodium Chloride) 540 mls @ 250 mls/hr IV X1 ONE Stop: 12/25/21 15:10 Last Admin: 12/25/21 16:42 Dose: Infused Labs: Sodium 138 mmol/L (136-145) 12/25/21 12:00 Potassium 3.6 mmol/L (3.5-5.1) 12/25/21 12:00 Chloride 106 mmol/L (98-107) 12/25/21 12:00 Carbon Dioxide 26.0 mmol/L (21.0-32.0) 12/25/21 12:00 Anion Gap 6 (5-15) 12/25/21 12:00 BUN 8 mg/dL (7-18) 12/25/21 12:00 Creatinine 0.89 mg/dL (0.70-1.30) 12/25/21 12:00 Est GFR (MDRD) Af Amer 118 mL/min (>60) 12/25/21 12:00 Est GFR (MDRD) Non-Af 97 mL/min (>60) 12/25/21 12:00 BUN/Creatinine Ratio 9.0 RATIO (10-20) L 12/25/21 12:00 Glucose 200 mg/dL (74-106) H 12/25/21 12:00 Weight used for dosin kg Estimated Creatinine Clearance: 123 Goal Trough: 10-15 mcg/mL Pharmacy Plan for Drug Dosing: Pharmacy Service will continue to monitor and adjust dosing as required. Follow-Up Labs: Trough Vancomycin Labs to be done on [date and time ordered]: 12/27/21 @0200
[2021-12-26 03:23] VITALS: BP 104/54; PULSE 79; RESP 18; TEMP 36.8; O2SAT 92
[2021-12-26] MEDS: Cefazolin 2 GM in 0.9% Normal Saline 100 ML IV ×3 (05:49→21:03)
[2021-12-26 06:21] LABS: Absolute Lymphocyte Count 1.04 X10^3/uL (0.83-4.51); Absolute Neutrophil Count 1.6 X10^3/uL (2.0-7.7); Basophil# 0.03 X10^3/uL; Eosinophil# 0.15 X10^3/uL; Eosinophils% 4.8 % (0-5); Hematocrit 34.6 % (40-54); Hemoglobin 12.3 g/dL (13.0-16.5); Lymphocyte # 1.04 X10^3/ul (0.83-4.51); Lymphocyte % 33.5 % (19-41); Mean Corp Hgb Conc 35.5 g/dL (32-36); Mean Corpuscular Volume 90.1 fL (80-94); Monocyte# 0.26 X10^3/uL; Monocyte% 8.4 % (0-10); NRBC Flagged by Analyzer 0 % (0-5); Neutrophil # 1.62 X10^3/uL (2.7-7.7); Neutrophil % 52.3 % (47-70); POSITIVE COUNT YES; Platelet Count 52 K/mm3 (150-450); RBC Distribution Width CV 14.3 % (11.6-14.6); Red Blood Count 3.84 M/mm3 (4.6-6.2); White Blood Count 3.1 K/mm3 (4.4-11.0)
[2021-12-26 06:45] LABS: Anion Gap 4 (5-15); BUN 9 mg/dL (7-18); BUN/Creat Ratio 13.7 RATIO (10-20); Chloride 111 mmol/L (98-107); Creatinine, Serum 0.66 mg/dL (0.70-1.30); EST Glomerular Filtration Rate 138 mL/min (>60); Est Glom Filt Rate - Afr Amer 167 mL/min (>60); Estimated Creatinine Clearance 165.37 ml/min; Glucose 108 mg/dL (74-106); Potassium 4.1 mmol/L (3.5-5.1); Sodium Level 140 mmol/L (136-145)
[2021-12-26 07:46] LABS: Bedside Glucose 106 mg/dL (74-106)
[2021-12-26 09:30] VITALS: BP 137/63; PULSE 85; RESP 18; TEMP 36.8; O2SAT 96
[2021-12-26] MEDS: Gabapentin 300 MG Capsule PO ×2 (10:22→21:03)
[2021-12-26] MEDS: Lisinopril 10 MG Tablet PO (10:22)
[2021-12-26] MEDS: Pantoprazole Sodium 40 MG Tablet PO (10:22)
[2021-12-26] MEDS: AMPHETAMINE PO ×2 (10:24→14:48)
[2021-12-26] MEDS: DEXTROAMPHETAMINE PO ×2 (10:24→14:48)
[2021-12-26] MEDS: oxyCODONE 5 MG Tablet 2.5 MG PO (10:28)
[2021-12-26 11:16] LABS: Bedside Glucose 150 mg/dL (74-106)
[2021-12-26] MEDS: Insulin Lispro 100 UNIT/ML INSULN.PEN SC (12:41)
[2021-12-26] MEDS: 0.9% Saline Lock 10 ML Syringe IV (13:04)
[2021-12-26] MEDS: oxyCODONE 5 MG Tablet PO (14:48)
--- NOTE | 2021-12-26 15:25 | PN.HOSP_ITS ---
Subjective Subjective Follow-up on left upper thigh cellulitis: Patient was seen and examined. Denied any new complaints. Denied any fever or chills. Redness of the upper thigh was improving. Objective Data Objective Data Vital Signs: Vital Signs Temp Pulse Resp BP Pulse Ox 98.2 F 85 18 137/63 H 96 12/26/21 09:30 12/26/21 09:30 12/26/21 09:30 12/26/21 09:30 12/26/21 09:30 Oxygen Delivery Method Room Air Weight: 151 kg Body Mass Index (BMI) 41.5 Intake & Output: Intake and Output for Last 24 Hours 12/24/21 12/25/21 12/26/21 23:59 23:59 23:59 Intake Total 2049 755 / 755 Output Total 0 / 0 Balance 2049 755 / 755 Lab / Micro Data Result Diagrams: 12/26/21 04:57 12/26/21 04:57 Labs: Laboratory Results - last 24 hr 12/25/21 16:30: Lactic Acid 1.6 12/25/21 21:47: POC Glucose 135 H 12/26/21 04:57: WBC 3.1 L, RBC 3.84 L, Hgb 12.3 L, Hct 34.6 L, MCV 90.1, MCH 32.0, MCHC 35.5, RDW Std Deviation 47.0 H, RDW Coeff of Ramya 14.3, Plt Count 52 L , MPV 12.0, Immature Gran % (Auto) 0.000, Neut % (Auto) 52.3, Lymph % (Auto) 33.5, [place] % (Auto) 8.4, Eos % (Auto) 4.8, Baso % (Auto) 1.0, Absolute Neuts ( auto) 1.6 L, Absolute Lymphs (auto) 1.04, Nucleated RBC % 0 12/26/21 04:57: Sodium 140, Potassium 4.1, Chloride 111 H, Carbon Dioxide 25.0, Anion Gap 4 L, BUN 9, Creatinine 0.66 L, Estim Creat Clear Calc 165.37, Est GFR (MDRD) Af Amer 167, Est GFR (MDRD) Non-Af 138, BUN/Creatinine Ratio 13.7, Glucose 108 H, Calcium 8.0 L 12/26/21 07:35: POC Glucose 106 12/26/21 11:12: POC Glucose 150 H Micro: Microbiology 12/25/21 12:10 Urine, Clean Catch Urine Culture - Preliminary Mixed Gram Positive Organisms Physical Exam Narrative Physical exam: General: Alert, Oriented x3, Cooperative, No apparent distress, Well developed HEENT: Atraumatic Oral: Moist Mucosa Neck: Supple Lungs: Clear to auscultation Cardiovascular: HS I+II, regular, no murmurs Abdomen: Bowel Sounds Present, Soft, Non Tender Extremities: Bilateral trace pedal edema Skin: Erythema of the left anterior and medial thigh, improved Neurological: Grossly intact Psych/Mental Status: Appropriate Assessment & Plan Assessment/Plan (1) Liver cirrhosis secondary to DEAN: PLAN: 1. Acute cellulitis of the left upper thigh, improving Continue on IV vancomycin and cefazolin 2. Hypertension, controlled, continue on lisinopril 3. Nonalcoholic liver cirrhosis, with chronic leukopenia and thrombocytopenia Continue on PPI, 4. Morbid obesity, BMI 41.6, complicates care, lifestyle modification advised 5. Type II DM, blood sugars are controlled, repeat lactic acid is 1.6 from 3.1 Resume back on Metformin 6. Rest of chronic medical conditions including ADHD/anxiety/depression/degenerative disc disease of the lumbar spine Continue on Adderall, gabapentin, buprenorphine 7. DVT PPx- SCDs on account of thrombocytopenia Charges/Coding Visit Charges Inpatient E&M: 94869 Subs Hosp L2
[2021-12-26 15:30] VITALS: BP 143/65; PULSE 86; RESP 18; TEMP 36.7; O2SAT 94
[2021-12-26 17:06] LABS: Bedside Glucose 121 mg/dL (74-106)
[2021-12-26] MEDS: metFORMIN HCl 850 MG Tablet PO (17:59)
[2021-12-26] MEDS: Methocarbamol 750 MG Tablet PO (21:03)
[2021-12-26] MEDS: Tamsulosin HCl 0.4 MG Capsule PO (21:03)
[2021-12-26] MEDS: lamoTRIgine 100 MG Tablet PO (21:03)
[2021-12-26] MEDS: QUEtiapine 25 MG Tablet 50 MG PO (21:03)
[2021-12-26 21:16] LABS: Bedside Glucose 113 mg/dL (74-106)
[2021-12-26 21:30] VITALS: BP 145/71; PULSE 88; RESP 18; TEMP 36.9; O2SAT 95
[2021-12-27 02:25] LABS: Vancomycin, Trough Level 9.1 ug/mL (5.0-15.0)
[2021-12-27 03:30] VITALS: BP 140/68; PULSE 90; RESP 18; TEMP 36.6; O2SAT 97
--- NOTE | 2021-12-27 04:12 | PCM.RX.CS ---
Consult Pharmacy has been consulted to manage selected antiobiotic: Vancomycin Type of Consult: Follow-up Suspected Infection: Skin/Soft tissue Prior Doses of Antibiotics Received/Current Regimen: Medications Vancomycin HCl 2,000 mg/ (Sodium Chloride) 540 mls @ 250 mls/hr IV Q12H OPAL Vancomycin HCl 1,750 mg/ (Sodium Chloride) 535 mls @ 250 mls/hr IV Q12H OPAL Stop: 12/27/21 05:00 Last Admin: 12/27/21 02:46 Dose: 250 mls/hr Documented by: Labs: Sodium 140 mmol/L (136-145) 12/26/21 04:57 Potassium 4.1 mmol/L (3.5-5.1) 12/26/21 04:57 Chloride 111 mmol/L (98-107) H 12/26/21 04:57 Carbon Dioxide 25.0 mmol/L (21.0-32.0) 12/26/21 04:57 Anion Gap 4 (5-15) L 12/26/21 04:57 BUN 9 mg/dL (7-18) 12/26/21 04:57 Creatinine 0.66 mg/dL (0.70-1.30) L 12/26/21 04:57 Est GFR (MDRD) Af Amer 167 mL/min (>60) 12/26/21 04:57 Est GFR (MDRD) Non-Af 138 mL/min (>60) 12/26/21 04:57 BUN/Creatinine Ratio 13.7 RATIO (10-20) 12/26/21 04:57 Glucose 108 mg/dL (74-106) H 12/26/21 04:57 Vancomycin Trough 9.1 ug/mL (5.0-15.0) 12/27/21 02:00 Microbiology: Microbiology 12/25/21 12:10 Urine, Clean Catch Urine Culture - Preliminary Mixed Gram Positive Organisms Weight used for dosin kg Estimated Creatinine Clearance: 165 Goal Trough: 10-15 mcg/mL Pharmacy Plan for Drug Dosing: Vancomycin trough level of 9.1 was slightly below the target range of 10-15. With his trending increase in clearance, we will increase the dose to 2000mg q12h. Another trough will be drawn prior to the 4th dose of the new regimen. Pharmacy Service will continue to monitor and adjust dosing as required. Follow-Up Labs: Trough Vancomycin Labs to be done on [date and time ordered]: 12/29/21 @0233
[2021-12-27] MEDS: Cefazolin 2 GM in 0.9% Normal Saline 100 ML IV (06:13)
[2021-12-27 07:06] LABS: Bedside Glucose 118 mg/dL (74-106)
--- NOTE | 2021-12-27 08:23 | PCM.DC.SUM ---
Providers Date of Admission: 12/25/21 Date of Discharge: 12/27/21 Primary Care Physician: Migdalia Carroll, VICE PRESIDENT QUALITY-C Reason For Visit: LEFT UPPER THIGH CELLULITIS Diagnosis Discharge Diagnosis (1) Liver cirrhosis secondary to DEAN: Status: Chronic Code(s): K75.81 - Nonalcoholic steatohepatitis (DEAN); K74.60 - Unspecified cirrhosis of liver Medications at Discharge Home Medications methocarbamol 750 mg PO QHS 01/07/17 gabapentin 300 mg PO BID 02/11/19 metformin 850 mg PO BIDCM #60 tab 10/06/20 buprenorphine 1 patch TRANSDERMAL FR 04/05/21 lisinopril 10 mg PO DAILY 04/05/21 oxycodone 2.5 mg PO DAILY 04/05/21 tamsulosin 0.4 mg PO QHS 04/05/21 dextroamphetamine-amphetamine 15 mg PO BID 12/25/21 lamotrigine 100 mg PO QHS 12/25/21 omeprazole 40 mg PO DAILY 12/25/21 oxycodone 5 mg PO QHS 12/25/21 quetiapine 50 mg PO QHS 12/25/21 sildenafil 50 mg PO X1 PRN 12/25/21 cephalexin 500 mg PO .QID 5 Days #20 cap 12/27/21 Hospital Course Operations None Procedures None Summary of Care Provided Minutes Spent on Discharge: 35 Hospital Course: 46-year-old with multiple comorbidities who comes in with left upper thigh redness and warmth that started a day before admission. Patient was started on oral antibiotics by his primary care doctor but it got worse and he followed up and was asked to go to the emergency room. In the ED, patient had clinical evidence of worsening cellulitis of the left upper thigh. He was started on IV cefazolin and vancomycin and admitted to PCU. Throughout his hospital stay, there were no acute events. His cellulitis continued to improve after 1 day. He was kept 1 more day and his cellulitis appears to have resolved. He was discharged on 5 more days of Keflex making a total of 1 week of antibiotics. He will need to follow-up with his primary care doctor within 1 to 2 weeks. Physical Exam Narrative Physical exam: General: Alert, Oriented x3, Cooperative, No apparent distress, Well developed HEENT: Atraumatic Oral: Moist Mucosa Neck: Supple Lungs: Clear to auscultation Cardiovascular: HS I+II, regular, no murmurs Abdomen: Bowel Sounds Present, Soft, Non Tender Extremities: Bilateral trace pedal edema Skin: Erythema of the left anterior and medial thigh, almost gone. Neurological: Grossly intact Psych/Mental Status: Appropriate Weight / BMI Weight Weight: 151 kg Body Mass Index (BMI) 41.5 ABG / Lab / Microbiology Data Result Diagrams: 12/26/21 04:57 12/26/21 04:57 Laboratory: Laboratory Results - last 24 hr 12/26/21 11:12: POC Glucose 150 H 12/26/21 16:54: POC Glucose 121 H 12/26/21 21:09: POC Glucose 113 H 12/27/21 02:00: Vancomycin Trough 9.1 12/27/21 06:39: POC Glucose 118 H Microbiology: Microbiology 12/25/21 12:10 Urine, Clean Catch Urine Culture - Preliminary Mixed Gram Positive Organisms D/C Instructions Discharge Diet: Low fat / Low cholesterol and 2000 mg Sodium Diet Meaningful Use Info Meaningful Use Diagnoses (Choose all that apply): None applicable Discharge Plan Admission Admit Date/Time: 12/25/21 20:57 Primary Reason for Your Visit: Left upper thigh cellulitis Attending Provider: Kimberly Mae Primary Care Provider: Migdalia Carroll [employer]ICE PRESIDENT [employer]ALITY Instructions Additional Instructions / Restrictions: Complete your antibiotics as scheduled. Continue to follow-up with your primary care doctor within 1 to 2 weeks. Discharge Orders/Prescriptions Prescriptions: New cephalexin 500 mg capsule 500 mg PO .QID 5 Days Qty: 20 RF: 0 Continued methocarbamol 500 MG tablet 750 mg PO QHS RF: 0 gabapentin 300 MG capsule 300 mg PO BID RF: 0 metformin 850 MG tablet 850 mg PO BIDCM Qty: 60 RF: 0 lisinopril 10 mg tablet 10 mg PO DAILY RF: 0 buprenorphine 10 mcg/hour patch weekly 1 patch transdermal FR RF: 0 tamsulosin 0.4 mg capsule 0.4 mg PO QHS RF: 0 oxycodone 5 mg tablet 2.5 mg PO DAILY RF: 0 sildenafil 50 mg tablet 50 mg PO X1 PRN (Reason: Erectile Dysfunction) RF: 0 lamotrigine 25 mg tablet 100 mg PO QHS RF: 0 quetiapine 50 mg tablet 50 mg PO QHS RF: 0 omeprazole 40 mg capsule,delayed release(DR/EC) 40 mg PO DAILY RF: 0 oxycodone 5 mg tablet 5 mg PO QHS RF: 0 dextroamphetamine-amphetamine 15 mg Tablet 15 mg PO BID RF: 0 Discontinued doxycycline monohydrate 100 mg capsule 100 mg PO BID RF: 0 Referrals / Follow Up: Migdalia Carroll VICE PRESIDENT QUALITY, VICE PRESIDENT [employer]-C [Primary Care Provider] - Within 2 Weeks Disposition Disposition (needs filled in before D/C Order can be placed): Home, Self Care Charges/Coding Visit Charges Inpatient E&M: 68676 Disch Hosp
[2021-12-27] MEDS: oxyCODONE 5 MG Tablet 2.5 MG PO (09:00)
[2021-12-27] MEDS: metFORMIN HCl 850 MG Tablet PO (09:00)
[2021-12-27] MEDS: Pantoprazole Sodium 40 MG Tablet PO (09:00)
[2021-12-27] MEDS: Gabapentin 300 MG Capsule PO (09:00)
[2021-12-27] MEDS: Lisinopril 10 MG Tablet PO (09:00)
[2021-12-27] MEDS: AMPHETAMINE PO (09:01)
[2021-12-27] MEDS: DEXTROAMPHETAMINE PO (09:01)
[2021-12-27 09:04] VITALS: BP 140/68; PULSE 90; RESP 18; TEMP 36.6; O2SAT 97
== END 2021-12-27 08:17 | disposition home or self-care (01) ==
LOC: ED 11:57 → PCU 14:37
PROVIDERS: Admitting Provider Internal Medicine; Emergency Provider Emergency Medicine; PCP Nurse Practitioner; Visit Provider Internal Medicine
DX: L03.116 Cellulitis of left lower limb (principal); K74.60 Unspecified cirrhosis of liver; Z68.41 Body mass index [BMI] 40.0-44.9, adult; E66.01 Morbid (severe) obesity due to excess calories; D69.6 Thrombocytopenia, unspecified; E87.2 Acidosis; K75.81 Nonalcoholic steatohepatitis (NASH); I10 Essential (primary) hypertension; F32.A Depression, unspecified; R73.03 Prediabetes; Z79.899 Other long term (current) drug therapy; Z86.718 Personal history of other venous thrombosis and embolism; Z87.891 Personal history of nicotine dependence; Z79.84 Long term (current) use of oral hypoglycemic drugs; F41.9 Anxiety disorder, unspecified; F90.9 Attention-deficit hyperactivity disorder, unspecified type; M51.16 Intervertebral disc disorders with radiculopathy, lumbar region
CPT/HCPCS: 36415; 71045; 80048; 80053; 80202; 81001; 82962; 83605; 85025; 85610; 85730; 87040; 87086; 87088; 93005; 96361; 96365; 96366; 96367; 96375; 97802; 99218; 99285; J7030; J7040; J7050; A4216; G0378

== ENCOUNTER → 2022-02-13 | Outpatient (CLI) | payer OTHER, SELFPAY ==
[2022-02-13 11:59] LABS: Amphetamine Urine VISTA POSITIVE (<1000 ng/mL); Barbiturate Urine VISTA NEGATIVE (< 200 ng/mL); Benzodiazepine Urine VISTA NEGATIVE (< 200 ng/mL); Cocaine Urine VISTA NEGATIVE (< 300 ng/mL); Ecstacy Urine VISTA NEGATIVE (< 500 ng/mL); Methadone Urine VISTA NEGATIVE (< 300 ng/mL); PCP Urine VISTA NEGATIVE (< 25 ng/mL); THC Urine VISTA NEGATIVE (< 50 ng/mL); Vista UDS pH Range 6
== END | disposition home or self-care (01) ==
LOC: LAB 11:19
PROVIDERS: PCP Internal Medicine; Referring Provider Anesthesiology Pain Medicine; Visit Provider Anesthesiology Pain Medicine
DX: F11.20 Opioid dependence, uncomplicated (principal)
CPT/HCPCS: 80307

== ENCOUNTER 2022-03-20 08:37 | Emergency (ER) | payer OTHER, SELFPAY ==
[2022-03-20 08:38] VITALS: BP 165/71; PULSE 123; RESP 20; TEMP 36.6; O2SAT 97; BMI 41.2
--- NOTE | 2022-03-20 08:58 | VDLE_ITS ---
Reason For Study: Left groin pain Procedure LEFT This is a venous duplex using B-mode, color GSV is normal. flow and spectral Doppler. CFV is compressible, spontaneous, phasic, Exam performed portable in ED. competent, and demonstrates normal A preliminary report was called and/or faxed augmentation. to ED RN. FV is compressible, spontaneous, phasic, competent and demonstrates normal augmentation. POP V is compressible, spontaneous, phasic, competent and demonstrates normal augmentation. T/P Trunk is compressible. PTV is compressible. LT PerV is compressible. Lymph nodes noted in the left groin area with arterial flow. VL/Venous Duplex US, Unilateral Interpretation Summary There is no evidence of left lower extremity deep vein thrombosis. Left great s aphenous vein appears patent and compressible segmentally. Left groin lymph nodes measuring 2.94 x 1. 28 cm and 1.17 x 1.3 cm and 3.09 x 1.5 x 1.74cm Ordering Physician: Rick Encinas Referring Physician: Omari Box M.D. Performed By: Mitzi Nash RVT
[2022-03-20 09:02] VITALS: BP 165/71; PULSE 123; RESP 20; TEMP 36.6; O2SAT 97
[2022-03-20 09:30] LABS: Absolute Lymphocyte Count 0.93 X10^3/uL (0.83-4.51); Absolute Neutrophil Count 4.7 X10^3/uL (2.0-7.7); Basophil# 0.04 X10^3/uL; Basophil% 0.6 % (0-1); Eosinophil# 0.22 X10^3/uL; Eosinophils% 3.3 % (0-5); Hematocrit 38.3 % (40-54); Hemoglobin 13.4 g/dL (13.0-16.5); Lymphocyte # 0.93 X10^3/ul (0.83-4.51); Lymphocyte % 14.1 % (19-41); Mean Corpuscular Hgb 32.1 pg (27.0-32.0); Mean Corpuscular Volume 91.8 fL (80-94); Mean Platelet Vol. 11.4 fl (6.2-12.0); Monocyte# 0.63 X10^3/uL; Monocyte% 9.6 % (0-10); NRBC Flagged by Analyzer 0 % (0-5); Neutrophil # 4.72 X10^3/uL (2.7-7.7); Neutrophil % 71.6 % (47-70); POSITIVE COUNT YES; Platelet Count 70 K/mm3 (150-450); RBC Distribution Width CV 14.9 % (11.6-14.6); RBC Distribution Width SD 50.6 fl (35.1-43.9); Red Blood Count 4.17 M/mm3 (4.6-6.2); White Blood Count 6.6 K/mm3 (4.4-11.0)
[2022-03-20] MEDS: Ketorolac 15 MG/ML Vial IV (09:30)
[2022-03-20 09:31] LABS: Anion Gap 8 (5-15); BUN 10 mg/dL (7-18); BUN/Creat Ratio 11.6 RATIO (10-20); Calcium,Total 8.8 mg/dL (8.5-10.1); Chloride 109 mmol/L (98-107); Creatinine, Serum 0.86 mg/dL (0.70-1.30); EST Glomerular Filtration Rate 101 mL/min (>60); Est Glom Filt Rate - Afr Amer 122 mL/min (>60); Estimated Creatinine Clearance 126.91 ml/min; Glucose 186 mg/dL (74-106); Potassium 3.6 mmol/L (3.5-5.1); Sodium Level 139 mmol/L (136-145)
[2022-03-20 09:37] LABS: D-Dimer Quantitative (DVT/PE) < 0.27 FEU/ug/m (0.27-0.49)
--- NOTE | 2022-03-20 10:35 | EX.ED.GUMALE ---
HPI History of Present Illness Chief Complaint: Male Pain/Injury Detail of Chief Complaint: cellulitis LLE Informant: patient Pain Onset: Yesterday Context: Gradual Onset Timing: Continuous Current Severity: Moderate Maximum Severity: Moderate Worsened by: palpation Relieved by: leaving alone Penile Discharge Genital Discharge Amount: None Narrative Narrative: Patient presents with mildly sore redness that is warm to his left medial mid-thigh that looks and feels like cellulitis he has had several times in the past. He has lower extremity edema due to venous insufficiency, he has a history of DVTs that are remote, he states he had some calf pain recently that then went away and he saw his PCP and had some blood work that did not include a D-dimer as well as a chest x-ray because he has had some dyspnea for the past 2 weeks, no chest pain. No palpitations or syncope. He states today the redness that he noticed yesterday is significantly more prominent, and his groin really hurts. That started before the redness, in the left groin, several days ago, and it feels worse now and is more painful than the red area in his left leg. He denies any fevers or chills or other systemic symptoms. [facility] Medical History Cellulitis Cellulitis of left ankle Cirrhosis Depression Diabetes mellitus with complication DVT (deep venous thrombosis) Edema Gout attack Insomnia Intervertebral disc disorder with radiculopathy of lumbar region Liver cirrhosis secondary to DEAN Lumbar disc disease with radiculopathy Lumbar disc prolapse with compression radiculopathy Malnutrition Morbid obesity due to excess calories Other intervertebral disc degeneration, lumbar region Perianal abscess Sleep apnea Spinal stenosis of lumbar region with neurogenic claudication Thrombocytopenia Ulcer of left ankle Ulcer of right lower extremity with fat layer exposed Vein disorder Venous insufficiency Home Medications methocarbamol 750 mg PO QHS 01/07/17 [History Last Taken 12/24/21] gabapentin 300 mg PO BID 02/11/19 [History Last Taken 12/25/21] metformin 850 mg PO BIDCM #60 tab 10/06/20 [Rx Last Taken 12/25/21] lisinopril 40 mg PO DAILY 04/05/21 [History Last Taken 12/25/21] oxycodone 2.5 mg PO DAILY 04/05/21 [History Last Taken 12/25/21] tamsulosin 0.4 mg PO QHS 04/05/21 [History Last Taken 12/24/21] dextroamphetamine-amphetamine 15 mg PO BID 12/25/21 [History Last Taken 12/25/21] lamotrigine 100 mg PO QHS 12/25/21 [History Last Taken 12/25/21] omeprazole 40 mg PO DAILY 12/25/21 [History Last Taken 12/25/21] oxycodone 5 mg PO QHS 12/25/21 [History Last Taken 12/24/21] quetiapine 50 mg PO QHS 12/25/21 [History Last Taken 12/24/21] sildenafil 50 mg PO X1 PRN 12/25/21 [History Last Taken Unknown] doxycycline monohydrate 100 mg PO BID #20 capsule 03/20/22 [Rx Last Taken Unknown] Allergy/AdvReac Type Severity Reaction Status Date / Time No Known Allergies Allergy Verified 03/20/22 08:40 Surgical History history incision and drainage perianal abscess (~10/05/20) History of cholecystectomy History of gastric surgery Status post laparoscopic Lazaro fundoplication Social History household members: spouse and children Smoking Status: Former smoker alcohol intake: current alcohol intake frequency: other substance use type: does not use ROS ROS ED Constitutional Constitutional ED: Denies chills or fever(s) Eyes Eyes: Denies change in vision or diplopia ENT ENT ED: Denies rhinorrhea or sore throat Cardiovascular Cardiovascular: Denies chest pain or palpitations Respiratory/Chest Respiratory/Chest: Reports dyspnea; Denies cough Gastrointestinal Gastrointestinal: Denies abdominal pain, diarrhea, nausea or vomiting Genitourinary Genitourinary ED: Denies dysuria or hematuria Musculoskeletal Musculoskeletal: Reports as per HPI and extremity pain; Denies back pain or neck pain Integumentary Reports as per HPI and rash; Denies abscess Neurologic Neurologic: Denies headache(s), paresthesias or weakness Psychiatric Psychiatric: Denies anxiety or suicidal thoughts EXAM Physical Exam Const Vital Signs: 03/20/22 08:38 03/20/22 09:02 Temperature 98 F 98 F Temperature Source Temporal Temporal Pulse Rate 123 H 123 H Respiratory Rate 20 H 20 H Blood Pressure 165/71 H 165/71 H Blood Pressure Mean 102 102 Pulse Ox 97 97 Oxygen Delivery Method Room Air Room Air Positive well nourished, well developed and obese General Appearance ED: well developed and NAD Nutritional Appearance: obese HEENT Reports moist mucous membranes normocephalic and atraumatic Eyes PERRL and EOMs intact bilaterally Neck full ROM and supple Resp normal respiratory effort and clear to auscultation bilaterally Cardio regular rate, regular rhythm and no murmurs GI non-tender and non-distended Auscultation: normoactive bowel sounds Palpation: soft Back/Spine no CVA tenderness General Back: other FROM Extremity full ROM Extremity Narrative: Mildly tender at a not well-circumscribed patch of erythema left mid medial thigh, there is a central scabbed abrasion/lesion without an abscess or induration. Area is warm. It is blanching. No lymphangitis. There is tender palpable lymphadenopathy in the left groin, without any buboes or erythema or any skin abnormalities there, this exam is somewhat limited due to the patient's pannus, but I was able to visualize it and the fact that his scrotum is normal-appearing and nontender. General Extremety ED: Yes edema and tenderness; Negative for pulses abnormal General Extremity: edema bilateral lower extremity Details: moderate (Symmetric bilaterally, nontender distally, with dark discolored changes consistent with chronic stasis dermatitis); Negative for pulses abnormal Neuro oriented x3, CN's II-XII intact bilaterally and no sensory deficits noted Sensorium / Orientation: awake and alert Motor Exam: strength 5/5 throughout Skin no rashes or lesions noted and no wounds MDM MDM MDM Narrative Medical decision making narrative: I did an ultrasound of the patient's left lower extremity which was negative for DVT and also a D-dimer, increasing the sensitivity of this and ruling out pulmonary embolus as cause for his dyspnea. He had a chest x-ray outpatient that was unremarkable, so we did not do any more imaging of his chest since it was not indicated. He does not have significant white blood count, he was treated empirically with vancomycin and 2000 mg while we were obtaining this work-up, and given Toradol for the discomfort in his groin, he requested something. On reevaluation her rashes not significantly clinically different, so I think outpatient treatment is reasonable. Patient was asking for something else for his groin pain which I think is due to lymphadenopathy. I offered him ice pack and Tylenol but he does not want that. I advised him that I will not be offering any narcotics for discomfort in his groin from lymphadenopathy. Lab Data Attestation: I reviewed the patient's lab results. Labs: Laboratory Results - last 24 hr 03/20/22 03/20/22 03/20/22 09:02 09:02 09:02 WBC 6.6 RBC 4.17 L Hgb 13.4 Hct 38.3 L MCV 91.8 MCH 32.1 H MCHC 35.0 RDW Std Deviation 50.6 H RDW Coeff of Ramya 14.9 H Plt Count 70 L MPV 11.4 Immature Gran % (Auto) 0.800 Neut % (Auto) 71.6 H Lymph % (Auto) 14.1 L [place] % (Auto) 9.6 Eos % (Auto) 3.3 Baso % (Auto) 0.6 Absolute Neuts (auto) 4.7 Absolute Lymphs (auto) 0.93 Nucleated RBC % 0 D-Dimer Quant (PE/DVT) < 0.27 L Sodium 139 Potassium 3.6 Chloride 109 H Carbon Dioxide 22.0 Anion Gap 8 BUN 10 Creatinine 0.86 Estim Creat Clear Calc 126.91 Est GFR (MDRD) Af Amer 122 Est GFR (MDRD) Non-Af 101 BUN/Creatinine Ratio 11.6 Glucose 186 H Calcium 8.8 Discharge Plan Triage Chief Complaint: Male Pain/Injury ED Provider: Rick Encinas Dx/Rx/DC Orders Clinical Impression: Cellulitis of left thigh, Venous insufficiency, Reactive lymphadenopathy Instructions: Lymphadenopathy, ED Cellulitis Prescriptions: New doxycycline monohydrate 100 MG capsule 100 mg PO BID Qty: 20 RF: 0 No Action methocarbamol 500 MG tablet 750 mg PO QHS RF: 0 gabapentin 300 MG capsule 300 mg PO BID RF: 0 metformin 850 MG tablet 850 mg PO BIDCM Qty: 60 RF: 0 lisinopril 10 mg tablet 40 mg PO DAILY RF: 0 tamsulosin 0.4 mg capsule 0.4 mg PO QHS RF: 0 oxycodone 5 mg tablet 2.5 mg PO DAILY RF: 0 sildenafil 50 mg tablet 50 mg PO X1 PRN (Reason: Erectile Dysfunction) RF: 0 lamotrigine 25 mg tablet 100 mg PO QHS RF: 0 quetiapine 50 mg tablet 50 mg PO QHS RF: 0 omeprazole 40 mg capsule,delayed release(DR/EC) 40 mg PO DAILY RF: 0 oxycodone 5 mg tablet 5 mg PO QHS RF: 0 dextroamphetamine-amphetamine 15 mg Tablet 15 mg PO BID RF: 0 Primary Care Provider: Omari Box Referrals: Omari Box MD [Primary Care Provider] - 1-2 Days if not improving Disposition Disposition: Home, Self Care
[2022-03-20] MEDS: Doxycycline 100 MG CAPSULE PO (11:14)
[2022-03-20 12:17] VITALS: RESP 18
== END 2022-03-20 12:19 | disposition home or self-care (01) ==
PROVIDERS: Emergency Provider Emergency Medicine; PCP Internal Medicine; Visit Provider Emergency Medicine
DX: L03.116 Cellulitis of left lower limb (principal); I87.2 Venous insufficiency (chronic) (peripheral); R06.00 Dyspnea, unspecified; R59.0 Localized enlarged lymph nodes; R10.30 Lower abdominal pain, unspecified; Z87.891 Personal history of nicotine dependence
CPT/HCPCS: 80048; 85025; 85379; 93971; 96365; 96366; 96375; 99282; J7040; J7050; A4216

== ENCOUNTER 2022-04-03 09:25 | Emergency (ER) | payer OTHER, SELFPAY ==
[2022-04-03 09:26] VITALS: BP 106/50; PULSE 112; RESP 20; TEMP 37; O2SAT 96; BMI 41.0
--- NOTE | 2022-04-03 09:51 | EKG12_ITS ---
Test Reason : LOWER EXT Blood Pressure : / mmHG Vent. Rate : 096 BPM Atrial Rate : 096 BPM P-R Int : 158 ms QRS Dur : 092 ms QT Int : 364 ms P-R-T Axes : 025 017 045 degrees QTc Int : 459 ms Normal sinus rhythm Normal ECG Confirmed by CHARISSA CULLEN, KIAN ([id number]), state editor ELICIA BARBA ([id number]) on 04/04/2022 11:19:34 AM Referred By: ELEANOR Confirmed By:KIAN CARRINGTON MD
[2022-04-03 10:08] VITALS: BP 101/53; PULSE 94; RESP 15; TEMP 37.2; O2SAT 95
[2022-04-03] MEDS: 0.9% Normal Saline 1,000 ML 999 ML IV (10:09)
[2022-04-03] MEDS: HYDROcodone Bitartrate/Apap 5/325 Tablet PO (10:13)
[2022-04-03] MEDS: Ondansetron 4 MG/2 ML Vial IV (10:15)
[2022-04-03 10:19] VITALS: TEMP 37.2; O2SAT 95
[2022-04-03 10:21] LABS: Absolute Neutrophil Count 7.3 X10^3/uL (2.0-7.7); Basophil# 0.02 X10^3/uL; Basophil% 0.2 % (0-1); Eosinophil# 0.06 X10^3/uL; Eosinophils% 0.7 % (0-5); Hematocrit 38.5 % (40-54); Hemoglobin 13.8 g/dL (13.0-16.5); Lymphocyte % 5.9 % (19-41); Mean Corp Hgb Conc 35.8 g/dL (32-36); Mean Corpuscular Hgb 33.3 pg (27.0-32.0); Mean Platelet Vol. 11.8 fl (6.2-12.0); Monocyte% 7.1 % (0-10); NRBC Flagged by Analyzer 0 % (0-5); Neutrophil # 7.25 X10^3/uL (2.7-7.7); Neutrophil % 85.7 % (47-70); POSITIVE COUNT YES; POSITIVE DIFFERENTIAL YES; Platelet Count 53 K/mm3 (150-450); RBC Distribution Width CV 14.7 % (11.6-14.6); RBC Distribution Width SD 50.8 fl (35.1-43.9); Red Blood Count 4.14 M/mm3 (4.6-6.2); White Blood Count 8.5 K/mm3 (4.4-11.0)
[2022-04-03 10:22] LABS: Differential Indicated SCAN CRITERIA MET
[2022-04-03 10:23] LABS: International Normalized Ratio 1.6; Prothrombin Time (Protime)PT. 18.5 SECONDS (11.7-14.9)
[2022-04-03 10:31] LABS: AST(SGOT) 27 U/L (15-37); Alanine Aminotransfer ALT/SGPT 32 U/L (16-61); Alkaline Phosphatase 82 U/L (45-117); Anion Gap 7 (5-15); BUN 13 mg/dL (7-18); BUN/Creat Ratio 13.3 RATIO (10-20); Calcium,Total 8.6 mg/dL (8.5-10.1); Chloride 107 mmol/L (98-107); Creatinine, Serum 0.97 mg/dL (0.70-1.30); EST Glomerular Filtration Rate 87 mL/min (>60); Est Glom Filt Rate - Afr Amer 106 mL/min (>60); Estimated Creatinine Clearance 112.52 ml/min; Globulin 3.1 g/dL (2.2-4.2); Glucose 171 mg/dL (74-106); Potassium 4.1 mmol/L (3.5-5.1); Protein, Total 6.1 g/dL (6.4-8.2); Sodium Level 137 mmol/L (136-145)
--- NOTE | 2022-04-03 10:31 | VDLE_ITS ---
Reason For Study: Pain Procedure LEFT This is a venous duplex using B-mode, color GSV is normal. flow and spectral Doppler. CFV is compressible, spontaneous, phasic, Exam performed portable in ED. competent, and demonstrates normal A preliminary report was called and/or faxed augmentation. to ED RN. FV is compressible, spontaneous, phasic, competent and demonstrates normal augmentation. POP V is compressible, spontaneous, phasic, competent and demonstrates normal augmentation. T/P Trunk is compressible. PTV is compressible. LT PerV is compressible. Lymph nodes noted in the left groin area with arterial flow. VL/Venous Duplex US, Unilateral Interpretation Summary There is no evidence of left lower extremity deep vein thrombosis. Left great s aphenous vein appears patent and compressible segmentally. Left groin adenopathy noted with a vascula r lymph node measuring 2.97 cm and an additional lymph node measuring 3.02 cm Ordering Physician: Stuart Machado Referring Physician: Omari Box M.D. Performed By: Mitzi Nash RVT
--- NOTE | 2022-04-03 10:32 | ED.VIS.LOWEX ---
HPI History of Present Illness Chief Complaint: Lower Extremity Injury Detail of Chief Complaint: Pain, swelling left calf Informant: patient Occured/Mechanism Mechanism/Context: Yes other see comment below Comment: Patient has history of DVT right and left leg. He also has history of recurrent current cellulitis of the left leg. He states he has had cellulitis approximately 20 times. Onset/Context/Timing Context: Sudden Onset Timing: Continuous Quality of Pain: Aching Location: Left calf Current Severity: Mild Maximum Severity: Moderate Worsened by: Movement and walking Relieved by: None thing Associated Symptoms Associated Symptoms: Positive for - (Documented fever to 102.2 last evening. He states he feels ill. He also complains of nausea.); Negative for Parasthesia, Weakness or Loss of Funtion Narrative Narrative: Pain is a 46-year-old male with history of DVT right and left lower extremity in the remote past. He is presently on no anticoagulant. He also has history of recurrent cellulitis left leg. He presents because of left calf pain and swelling. Symptoms started last evening. He denies shortness of breath or difficulty breathing. He states his temperature was 102.2 ?F last evening. He did take antipyretic 2 to 3 hours prior to presentation. He denies headache. He denies visual, ocular auditory symptoms. He denies cardiac or respiratory symptoms. He does report of nausea and not feeling well. He denies vomiting or diarrhea. He denies urinary symptoms. He denies history of trauma. He does have history of venous insufficiency. He also states it takes a long time for cuts to heal. 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 Lumbar disc disease with radiculopathy Lumbar disc prolapse with compression radiculopathy Malnutrition Morbid obesity due to excess calories Other intervertebral disc degeneration, lumbar region Perianal abscess Sleep apnea Spinal stenosis of lumbar region with neurogenic claudication Thrombocytopenia Ulcer of left ankle Ulcer of right lower extremity with fat layer exposed Vein disorder Venous insufficiency Home Medications methocarbamol 500 mg tablet 750 mg PO QHS leg cramps 03/29/17 [History Last Taken 12/24/21] gabapentin 300 mg capsule 300 mg PO BID neuropathy 02/11/19 [History Last Taken 12/25/21] metformin 850 mg tablet 850 mg PO BIDCM #60 tabs 10/06/20 [Rx Last Taken 12/25/21] lisinopril 10 mg tablet 40 mg PO DAILY blood pressure 04/05/21 [History Last Taken 12/25/21] oxycodone 5 mg tablet 2.5 mg PO DAILY PAIN 04/05/21 [History Last Taken 12/25/21] tamsulosin 0.4 mg capsule 0.4 mg PO QHS prostate 04/05/21 [History Last Taken 12/24/21] dextroamphetamine-amphetamine 15 mg tablet 15 mg PO BID 12/25/21 [History Last Taken 12/25/21] lamotrigine 25 mg tablet 100 mg PO QHS seizures 12/25/21 [History Last Taken 12/25/21] omeprazole 40 mg capsule,delayed release 40 mg PO DAILY GERD 12/25/21 [History Last Taken 12/25/21] oxycodone 5 mg tablet 5 mg PO QHS PAIN 12/25/21 [History Last Taken 12/24/21] quetiapine 50 mg tablet 50 mg PO QHS mental health 12/25/21 [History Last Taken 12/24/21] sildenafil 50 mg tablet 50 mg PO X1 PRN Erectile Dysfunction 12/25/21 [History Last Taken Unknown] cephalexin 500 mg capsule 500 mg PO Q6 #28 CAPSULES 04/03/22 [Rx Last Taken Unknown] sulfamethoxazole 800 mg-trimethoprim 160 mg tablet 1 tab PO BID #14 TABLETS 04/03/22 [Rx Last Taken Unknown] Allergy/AdvReac Type Severity Reaction Status Date / Time No Known Allergies Allergy Verified 04/03/22 09:28 Surgical History history incision and drainage perianal abscess (~10/05/20) History of cholecystectomy History of gastric surgery Status post laparoscopic Lazaro fundoplication Social History household members: spouse and children Smoking Status: Former smoker alcohol intake: current alcohol intake frequency: other substance use type: does not use ROS ROS ED Constitutional Constitutional ED: Reports chills and fever(s); Denies subjective, sweats or weight loss Eyes Eyes: Denies blurry vision, change in vision or diplopia ENT ENT ED: Denies ear pain, rhinorrhea or sore throat Cardiovascular Cardiovascular: Denies chest pain, orthopnea, palpitations, paroxysmal nocturnal dyspnea or racing heartbeat Respiratory/Chest Respiratory/Chest: Denies cough, dyspnea, dyspnea on exertion, orthopnea, paroxysmal nocturnal dyspnea or sputum Gastrointestinal Gastrointestinal: Reports nausea; Denies abdominal pain, constipation, diarrhea or vomiting Genitourinary Genitourinary ED: Denies dysuria, hematuria or urinary frequency Musculoskeletal Musculoskeletal: Reports arthralgias and myalgias; Denies back pain or neck pain Neurologic Neurologic: Reports headache(s); Denies paresthesias or weakness Psychiatric Psychiatric: Denies anxiety or depression Endocrine Endocrinology: Denies polydipsia, polyphagia or polyuria Hematologic/Lymphatic Hematologic/Lymphatic: Denies easy bleeding, easy bruising or lymphadenopathy Allergic/Immunologic Allergic/Immunologic ED: Denies mouth swelling or tongue swelling EXAM Physical Exam Narrative Exam Narrative: Patient does not appear well. He does not appear toxic, however. Const Vital Signs: 04/03/22 09:26 04/03/22 10:08 04/03/22 10:19 Temperature 98.6 F 98.9 F Temperature Source Temporal Temporal Pulse Rate 112 H 94 Respiratory Rate 20 H 15 Blood Pressure 106/50 L 101/53 L Blood Pressure Mean 68 69 Pulse Ox 96 95 95 Oxygen Delivery Method Room Air Room Air Room Air 04/03/22 10:19 04/03/22 11:05 04/03/22 11:05 Temperature 98.9 F 98.9 F Temperature Source Temporal Temporal Pulse Rate 94 Respiratory Rate 16 Blood Pressure 123/71 H Blood Pressure Mean 88 Pulse Ox 96 Oxygen Delivery Method Room Air 04/03/22 11:05 04/03/22 12:25 04/03/22 12:25 Temperature 98.9 F 98.4 F Temperature Source Temporal Temporal Pulse Rate 93 99 Respiratory Rate 16 20 H Blood Pressure 123/71 H 114/44 L Blood Pressure Mean 88 67 Pulse Ox 96 95 Oxygen Delivery Method Room Air Room Air 04/03/22 12:25 Temperature 98.4 F Temperature Source Temporal Pulse Rate 98 Respiratory Rate 18 Blood Pressure 114/44 L Blood Pressure Mean 67 Pulse Ox 95 Oxygen Delivery Method Room Air Positive well nourished, well developed and obese General Appearance ED: well developed and NAD Nutritional Appearance: obese HEENT Reports moist mucous membranes normocephalic and atraumatic Eyes PERRL Eyes Narrative: Extract muscles are intact. Sclera is anicteric. Conjunctive is pink. Neck full ROM and supple Resp normal respiratory effort, no retractions and clear to auscultation bilaterally Cardio regular rhythm, S1 normal heart sound, S2 normal heart sound and no murmurs Rate: tachycardic GI non-tender, non-distended and no masses Inspection: Negative for abdominal distention Auscultation: hypoactive bowel sounds Palpation: soft Back/Spine no CVA tenderness Thoracic Spine / Upper Back: Negative for thoracic spinal tenderness Lumbar Spine / Lower Back: Negative for lumbar spinal tenderness Extremity Negative for normal to inspection Extremity Narrative: Patient has swelling of both right and left leg. There is evidence of venous stasis dermatitis. The left calf is swollen in comparison to the right circumflex circumference is approximately 2.5 to 3 cm larger. There is tenderness along the distribution deep venous system. There is slight increased pigmentation of the left calf. 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 There is no lymphangitis, induration or fluctuance. There is no popliteal tenderness or lymphadenopathy. There is shotty nodes in the left inguinal area with tenderness. Femoral pulses palpable. DP and PT pulse are palpable on the left. General Extremety ED: Yes edema; Negative for cyanosis General Extremity: edema; Negative for cyanosis Neuro oriented x3, CN's II-XII intact bilaterally and moves all extremities Sensory Exam: No sensory level loss detected Motor Exam: strength 5/5 throughout Deep Tendon Reflexes: Rt Patellar (L4): 1+, Lt Patellar (L4): 1+, Rt Ankle (S1): 1+ and Lt Ankle (S1): 1+ Deep Tendon Reflexes Back: Rt Patellar (L4): 1+, Lt Patellar (L4): 1+, Rt Ankle (S1): 1+ and Lt Ankle (S1): 1+ Plantar Reflex: Downgoing: bilateral Psych mental status grossly normal Psych Narrative: Thought process is normal. Skin Skin Narrative: Described under the extremity portion of the chart. Lesions: No no lesions MDM MDM MDM Narrative Medical decision making narrative: Differential diagnosis to be cellulitis versus DVT. Suspect cellulitis however since white count is normal and presently is not febrile will obtain venous duplex study to evaluate for DVT since he has had a DVT in the past. Sepsis work-up was initiated. Because principal impression is cellulitis he was treated with Unasyn. Lab Data Attestation: I reviewed the patient's lab results. Lab results narrative: CBC is remarkable for shift with 86% segs; however, the white count is normal. There is no bandemia. Coags reveal elevated PT and PTT of 18.5 and 39.0. We will verify patient's medications and determine if he is or is not on anticoagulant. Comprehensive metabolic panel is marked for glucose of 171 and total bili of 2.8. Otherwise, comprehensive metabolic panel is unremarkable. Lactate is L evaded at at 2.6. Patient is not diabetic and is on no oral hypoglycemic agents that would explain his elevated lactate. Has a source of infection. Since there is no endorgan dysfunction even though his lactate is elevated he does not meet criteria for sepsis. We will treat with cephalexin and Bactrim since he has no allergies. He states he is normally admitted. He was informed he does not meet criteria for admission. I informed him he does have an infection. It appears to be be due to an early skin infection, cellulitis. Labs: Laboratory Results - last 24 hr 04/03/22 04/03/22 04/03/22 10:03 10:03 10:03 WBC 8.5 RBC 4.14 L Hgb 13.8 Hct 38.5 L MCV 93.0 MCH 33.3 H MCHC 35.8 RDW Std Deviation 50.8 H RDW Coeff of Ramya 14.7 H Plt Count 53 L MPV 11.8 Immature Gran % (Auto) 0.400 Neut % (Auto) 85.7 H Lymph % (Auto) 5.9 L [place] % (Auto) 7.1 Eos % (Auto) 0.7 Baso % (Auto) 0.2 Absolute Neuts (auto) 7.3 Absolute Lymphs (auto) 0.50 L Nucleated RBC % 0 Platelet Estimate MKD DEC PT 18.5 H INR 1.6 APTT 39.0 H Sodium 137 Potassium 4.1 Chloride 107 Carbon Dioxide 23.0 Anion Gap 7 BUN 13 Creatinine 0.97 Estim Creat Clear Calc 112.52 Est GFR (MDRD) Af Amer 106 Est GFR (MDRD) Non-Af 87 BUN/Creatinine Ratio 13.3 Glucose 171 H Lactic Acid Calcium 8.6 Total Bilirubin 2.80 H AST 27 ALT 32 Alkaline Phosphatase 82 Total Protein 6.1 L Albumin 3.0 L Globulin 3.1 Albumin/Globulin Ratio 1.0 Urine Color Urine Clarity Urine pH Ur Specific [place] Urine Protein Urine Glucose (UA) Urine Ketones Urine Occult Blood Urine Nitrite Urine Bilirubin Urine Urobilinogen Ur Leukocyte Esterase Urine RBC Urine WBC Ur Squamous Epith Cells Urine Bacteria Urine Mucus 04/03/22 04/03/22 10:03 11:00 WBC RBC Hgb Hct MCV MCH MCHC RDW Std Deviation RDW Coeff of Ramya Plt Count MPV Immature Gran % (Auto) Neut % (Auto) Lymph % (Auto) [place] % (Auto) Eos % (Auto) Baso % (Auto) Absolute Neuts (auto) Absolute Lymphs (auto) Nucleated RBC % Platelet Estimate PT INR APTT Sodium Potassium Chloride Carbon Dioxide Anion Gap BUN Creatinine Estim Creat Clear Calc Est GFR (MDRD) Af Amer Est GFR (MDRD) Non-Af BUN/Creatinine Ratio Glucose Lactic Acid 2.6 H* Calcium Total Bilirubin AST ALT Alkaline Phosphatase Total Protein Albumin Globulin Albumin/Globulin Ratio Urine Color [place] Urine Clarity Sl. Cloudy Urine pH 6.0 Ur Specific [place] 1.020 Urine Protein 30 H Urine Glucose (UA) Normal Urine Ketones 15 H Urine Occult Blood 150 H Urine Nitrite Positive H Urine Bilirubin 1 H Urine Urobilinogen 8 H Ur Leukocyte Esterase 25 H Urine RBC 0-5 SEEN Urine WBC 0-5 SEEN Ur Squamous Epith Cells 0-5 SEEN Urine Bacteria RARE Urine Mucus 2+ EKG Initial EKG: Attestation: I personally reviewed and interpreted this EKG as follows: Interpretation: Sinus Rhythm (Ventricular rate is 96. EKG is normal. CA interval is 158 ms. QRS duration is 92 ms. QT duration is 364 ms and axis is normal.) Treatment and Re-Evaluation Narrative: Patient looks better and reports he feels better after IV fluids and antibiotics. Patient was informed of his test results. Patient was informed he does not meet criteria for admission. The reevaluation was at 1250. Discharge Plan Triage Chief Complaint: Lower Extremity Injury ED Provider: Stuart Machado Dx/Rx/DC Orders Clinical Impression: Cellulitis of left leg without foot, Acidosis, lactic, Serum total bilirubin elevated Instructions: ED Cellulitis Prescriptions: New sulfamethoxazole-trimethoprim [sulfamethoxazole-trimethoprim] 800-160 mg tablet 1 tab PO BID Qty: 14 0RF cephalexin [cephalexin] 500 mg capsule 500 mg PO Q6 Qty: 28 0RF No Action methocarbamol 500 MG tablet 750 mg PO QHS gabapentin 300 MG capsule 300 mg PO BID Rx Instructions: take 300 mg BID metformin 850 MG tablet 850 mg PO BIDCM Qty: 60 0RF lisinopril 10 mg tablet 40 mg PO DAILY Label Comments: Take 1 tablet by mouth once daily. tamsulosin 0.4 mg capsule 0.4 mg PO QHS oxycodone 5 mg tablet 2.5 mg PO DAILY sildenafil 50 mg tablet 50 mg PO X1 PRN (Reason: Erectile Dysfunction) Label Comments: Take 1 tab. by mouth once daily as needed 1 hour before sexual activity; may take up to 4 hours before sexual activity. lamotrigine 25 mg tablet 100 mg PO QHS Label Comments: take 1 tablet by mouth every evening for 7 days then 2 tablets by... (REFER TO PRESCRIPTION NOTES). quetiapine 50 mg tablet 50 mg PO QHS Label Comments: take 1 tablet by mouth at bedtime omeprazole 40 mg capsule,delayed release(DR/EC) 40 mg PO DAILY Label Comments: Take 1 capsule by mouth once daily. oxycodone 5 mg tablet 5 mg PO QHS Label Comments: TAKE 1/2 (ONE-HALF) OF A TABLET THREE TIMES DAILY FOR 28 DAYS dextroamphetamine-amphetamine 15 mg Tablet 15 mg PO BID Primary Care Provider: Omari Box Referrals: Omari Box MD [Primary Care Provider] - 2 Days for wound check Disposition Disposition: Home, Self Care
[2022-04-03 10:46] LABS: Lactic Acid 2.6 mmol/L (0.4-1.9)
[2022-04-03 10:49] LABS: Platelet Estimate MKD DEC (ADEQ)
[2022-04-03 11:05] VITALS: BP 123/71; PULSE 93; PULSE 94; RESP 16; TEMP 37.2; O2SAT 96
[2022-04-03 11:15] LABS: Color, Urine Amber (Yellow); Glucose, Dipstick Normal (Normal); Ketone-Dipstick 15 mg/dl (Negative); Leukocyte Esterase-Dipstick 25 /ul (Negative); Nitrite-Dipstick Positive (Negative); Occult Blood-Urine 150 /ul (Negative); Protein-Dipstick 30 mg/dl (Negative); Urine Clarity Sl. Cloudy (Clear); Urine Urobilinogen 8 mg/dl (Normal)
[2022-04-03 11:31] LABS: Urine Bilirubin Dipstick 1 mg/dL (Negative)
[2022-04-03 11:35] LABS: Bacteria RARE /hpf (None Seen); Red Blood Cells-Urine 0-5 SEEN /hpf (0-5); Squamous Epithelial Cells - UA 0-5 SEEN /hpf (0-5); White Blood Cells 0-5 SEEN /hpf (0-5)
[2022-04-03 11:36] LABS: Mucous, Urine 2+ /hpf (<or=2+)
[2022-04-03 12:25] VITALS: BP 114/44; PULSE 98; PULSE 99; RESP 18; RESP 20; TEMP 36.9; O2SAT 95
[2022-04-03 12:59] VITALS: BP 113/59; PULSE 97; RESP 12; O2SAT 95
[2022-04-03 14:11] LABS: Reflex Lactate? Y
== END 2022-04-03 13:04 | disposition home or self-care (01) ==
PROVIDERS: Emergency Provider Emergency Medicine; PCP Internal Medicine; Visit Provider Emergency Medicine
DX: L03.116 Cellulitis of left lower limb (principal); M79.662 Pain in left lower leg; Z87.891 Personal history of nicotine dependence; R11.0 Nausea; E87.2 Acidosis; Z86.718 Personal history of other venous thrombosis and embolism
CPT/HCPCS: 80053; 81001; 83605; 85025; 85610; 85730; 87040; 93005; 93971; 99285; J7030; A4216; J0295; J2405

== ENCOUNTER 2022-04-25 14:44 | Emergency (ER) | payer OTHER, SELFPAY ==
[2022-04-25 14:45] VITALS: BP 127/44; PULSE 104; RESP 18; TEMP 37.1; O2SAT 92; BMI 40.6
[2022-04-25 14:46] VITALS: BP 127/44; PULSE 104; RESP 18; TEMP 37.1; O2SAT 92
--- NOTE | 2022-04-25 15:02 | VDLE_ITS ---
Reason For Study: LEG SWELLING RIGHT LEFT CFV is compressible, spontaneous, phasic, GSV is normal. competent and demonstrates normal CFV is compressible, spontaneous, phasic, augmentation. competent, and demonstrates normal Procedure augmentation. This is a venous duplex using B-mode, color FV is compressible, spontaneous, phasic, flow and spectral Doppler. competent and demonstrates normal Exam performed portable in ED. augmentation. The exam was of adequate technical quality. POP V is compressible, spontaneous, phasic, A preliminary report was called and/or faxed competent and demonstrates normal to ER Physician. augmentation. T/P Trunk is compressible. PTV is compressible. LT PerV is compressible. Lymph nodes noted in the left groin area with arterial flow. VL/Venous Duplex US, Unilateral Interpretation Summary There is no evidence of left lower extremity deep vein thrombosis. Left great s aphenous vein appears patent and compressible segmentally. Left groin 1.26 x 1.96cm lymph node Normal flow patterns right common femoral vein Ordering Physician: Milly Grady Referring Physician: Omari Box M.D. Performed By: Timothy Rangel
--- NOTE | 2022-04-25 15:04 | EX.ED.DYSGE1 ---
HPI History of Present Illness Chief Complaint: Cellulitis Informant: patient Onset/Context/Timing Onset: Today Current Severity: Moderate Maximum Severity: Moderate Narrative Narrative: Patient has a history of recurrent cellulitis to his lower extremities. He woke this morning with erythema to his left thigh. Because the area seems so involved he was sent from urgent care to the emergency room. He reports that temperature of 100.5 in urgent care today. He did take ibuprofen approximately an hour prior to arrival. On review of records it appears patient was seen here in late March with similar. He was treated with Bactrim and Keflex at that time. He states he did take a dose of doxycycline this morning. His doctor had given him a prescription to have at home because he gets such frequent cellulitis. 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 Lumbar disc disease with radiculopathy Lumbar disc prolapse with compression radiculopathy Malnutrition Morbid obesity due to excess calories Other intervertebral disc degeneration, lumbar region Perianal abscess Sleep apnea Spinal stenosis of lumbar region with neurogenic claudication Thrombocytopenia Ulcer of left ankle Ulcer of right lower extremity with fat layer exposed Vein disorder Venous insufficiency Home Medications methocarbamol 500 mg tablet 750 mg PO QHS leg cramps 01/07/17 [History Last Taken 12/24/21] gabapentin 300 mg capsule 300 mg PO BID neuropathy 02/11/19 [History Last Taken 12/25/21] metformin 850 mg tablet 850 mg PO BIDCM #60 tabs 10/06/20 [Rx Last Taken 12/25/21] lisinopril 10 mg tablet 40 mg PO DAILY blood pressure 04/05/21 [History Last Taken 12/25/21] oxycodone 5 mg tablet 2.5 mg PO DAILY PAIN 04/05/21 [History Last Taken 12/25/21] tamsulosin 0.4 mg capsule 0.4 mg PO QHS prostate 04/05/21 [History Last Taken 12/24/21] dextroamphetamine-amphetamine 15 mg tablet 15 mg PO BID 12/25/21 [History Last Taken 12/25/21] lamotrigine 25 mg tablet 100 mg PO QHS seizures 12/25/21 [History Last Taken 12/25/21] omeprazole 40 mg capsule,delayed release 40 mg PO DAILY GERD 12/25/21 [History Last Taken 12/25/21] oxycodone 5 mg tablet 5 mg PO QHS PAIN 12/25/21 [History Last Taken 12/24/21] quetiapine 50 mg tablet 50 mg PO QHS mental health 12/25/21 [History Last Taken 12/24/21] sildenafil 50 mg tablet 50 mg PO X1 PRN Erectile Dysfunction 12/25/21 [History Last Taken Unknown] cephalexin 500 mg capsule 500 mg PO Q6 #28 CAPSULES 04/03/22 [Rx Last Taken Unknown] sulfamethoxazole 800 mg-trimethoprim 160 mg tablet 1 tab PO BID #14 TABLETS 04/03/22 [Rx Last Taken Unknown] cephalexin 500 mg capsule 500 mg PO Q6 #40 caps 04/25/22 [Rx Last Taken Unknown] ondansetron 4 mg disintegrating tablet 4 mg PO Q8H PRN nausea and vomiting #10 tabs 04/25/22 [Rx Last Taken Unknown] sulfamethoxazole 800 mg-trimethoprim 160 mg tablet (Bactrim DS) 1 tab PO BID #20 tabs 04/25/22 [Rx Last Taken Unknown] Allergy/AdvReac Type Severity Reaction Status Date / Time No Known Allergies Allergy Verified 04/25/22 14:47 Surgical History history incision and drainage perianal abscess (~10/05/20) History of cholecystectomy History of gastric surgery Status post laparoscopic Lazaro fundoplication Social History household members: spouse and children Smoking Status: Former smoker alcohol intake: current alcohol intake frequency: other substance use type: does not use ROS ROS ED Constitutional Constitutional ED: Reports fever(s); Denies chills Eyes Eyes: Denies change in vision or discharge from eye(s) ENT ENT ED: Denies discharge from eye(s), rhinorrhea or sore throat Cardiovascular Cardiovascular: Denies chest pain or palpitations Respiratory/Chest Respiratory/Chest: Denies cough or dyspnea Gastrointestinal Gastrointestinal: Reports abdominal pain; Denies diarrhea, nausea or vomiting Genitourinary Genitourinary ED: Denies difficulty urinating or dysuria Musculoskeletal Musculoskeletal: Reports back pain and extremity pain Integumentary Reports other Details: Cellulitis left lower extremity ; Denies Abrasions or rash Neurologic Neurologic: Denies headache(s) or weakness Psychiatric Psychiatric: Denies anxiety or depression Allergic/Immunologic Allergic/Immunologic ED: Denies lip swelling or urticaria EXAM Physical Exam Const Vital Signs: 04/25/22 14:45 04/25/22 14:46 Temperature 98.7 F 98.7 F Temperature Source Temporal Temporal Pulse Rate 104 H 104 H Respiratory Rate 18 18 Blood Pressure 127/44 H 127/44 H Blood Pressure Mean 71 Pulse Ox 92 92 Oxygen Delivery Method Room Air Room Air Positive well nourished and well developed General Appearance ED: well developed HEENT Reports normocephalic and head/scalp atraumatic Eyes PERRL and EOMs intact bilaterally Neck supple Chest Wall inspection of chest normal and palpation of chest normal Resp normal respiratory effort and clear to auscultation bilaterally Cardio regular rate and regular rhythm GI normal to inspection, nondistended, normoactive bowel sounds Palpation: soft Extremity Extremity Narrative: Cellulitis of the left thigh measuring 20 x 40 cm. No open wounds. Neuro oriented x3 and no sensory deficits noted Sensorium / Orientation: alert Motor Exam: strength 5/5 throughout Psych mental status grossly normal Skin no rashes or lesions noted MDM MDM MDM Narrative Medical decision making narrative: IV line established. Lab work obtained and patient given a dose of Unasyn. Venous ultrasound of the left leg obtained. Patient was given a dose of morphine for pain control. Lab Data Attestation: I reviewed the patient's lab results. Labs: Laboratory Results - last 24 hr 04/25/22 04/25/22 04/25/22 15:35 15:35 15:35 WBC 5.3 RBC 3.81 L Hgb 12.3 L Hct 35.4 L MCV 92.9 MCH 32.3 H MCHC 34.7 RDW Std Deviation 49.6 H RDW Coeff of Ramya 14.6 Plt Count 51 L MPV 11.3 Immature Gran % (Auto) 0.400 Neut % (Auto) 75.2 H Lymph % (Auto) 11.8 L [place] % (Auto) 10.5 H Eos % (Auto) 1.5 Baso % (Auto) 0.6 Absolute Neuts (auto) 4.0 Absolute Lymphs (auto) 0.62 L Nucleated RBC % 0 Differential Comment SEE COMMENT Platelet Estimate MOD DEC RBC Morphology N CHROM Anisocytosis RARE Macrocytosis RARE ESR < 1 Sodium 137 Potassium 4.2 Chloride 109 H Carbon Dioxide 24.0 Anion Gap 4 L BUN 13 Creatinine 0.82 Estim Creat Clear Calc 133.10 Est GFR (MDRD) Af Amer 129 Est GFR (MDRD) Non-Af 107 BUN/Creatinine Ratio 15.9 Glucose 154 H Lactic Acid 1.8 Calcium 8.1 L C-React Prot Ext Range 13.80 H Radiography Diagnostic Testing: Clinical Impression(s) from Imaging Studies Venous Doppler Study 04/25/22 15:02 Interpretation Summary There is no evidence of left lower extremity deep vein thrombosis. Left great saphenous vein appears patent and compressible segmentally. Left groin 1.26 x 1.96cm lymph node Normal flow patterns right common femoral vein Ordering Physician: Milly Grady Referring Physician: Omari Box M.D. Performed By: Timothy Rangel Treatment and Re-Evaluation Narrative: Venous ultrasound reveals no evidence of DVT. Lab work reveals normal white count with 75% neutrophils. Sed rate is less than 1. CRP is elevated at 13.8. Lactic acid is 1.8. Chemistry studies are unremarkable. Test results discussed with patient and family at bedside. At this time he is only had 1 dose of doxycycline at home. He did well with Bactrim and Keflex at home with the last encounter and I will write him for this again. Area of erythema will be outlined. He was advised that if the erythema spreads beyond he can return for IV antibiotics once we document that he is failed outpatient therapy. Discharge Plan Triage Chief Complaint: Cellulitis ED Provider: Milly Grady Dx/Rx/DC Orders Clinical Impression: Cellulitis Instructions: ED Cellulitis Prescriptions: New sulfamethoxazole-trimethoprim [Bactrim DS] 800-160 mg tablet 1 tab PO BID Qty: 20 0RF cephalexin 500 mg capsule 500 mg PO Q6 Qty: 40 0RF ondansetron 4 mg tablet,disintegrating 4 mg PO Q8H PRN (Reason: nausea and vomiting) Qty: 10 0RF No Action methocarbamol 500 MG tablet 750 mg PO QHS gabapentin 300 MG capsule 300 mg PO BID Rx Instructions: take 300 mg BID metformin 850 MG tablet 850 mg PO BIDCM Qty: 60 0RF lisinopril 10 mg tablet 40 mg PO DAILY Label Comments: Take 1 tablet by mouth once daily. tamsulosin 0.4 mg capsule 0.4 mg PO QHS oxycodone 5 mg tablet 2.5 mg PO DAILY sildenafil 50 mg tablet 50 mg PO X1 PRN (Reason: Erectile Dysfunction) Label Comments: Take 1 tab. by mouth once daily as needed 1 hour before sexual activity; may take up to 4 hours before sexual activity. lamotrigine 25 mg tablet 100 mg PO QHS Label Comments: take 1 tablet by mouth every evening for 7 days then 2 tablets by... (REFER TO PRESCRIPTION NOTES). quetiapine 50 mg tablet 50 mg PO QHS Label Comments: take 1 tablet by mouth at bedtime omeprazole 40 mg capsule,delayed release(DR/EC) 40 mg PO DAILY Label Comments: Take 1 capsule by mouth once daily. oxycodone 5 mg tablet 5 mg PO QHS Label Comments: TAKE 1/2 (ONE-HALF) OF A TABLET THREE TIMES DAILY FOR 28 DAYS dextroamphetamine-amphetamine 15 mg Tablet 15 mg PO BID sulfamethoxazole-trimethoprim [sulfamethoxazole-trimethoprim] 800-160 mg tablet 1 tab PO BID Qty: 14 0RF cephalexin [cephalexin] 500 mg capsule 500 mg PO Q6 Qty: 28 0RF Primary Care Provider: Omari Box Referrals: Omari Box MD [Primary Care Provider] - 5-7 Days Disposition Disposition: Home, Self Care
[2022-04-25] MEDS: Ondansetron 4 MG/2 ML Vial IV (15:40)
[2022-04-25] MEDS: Morphine 4 MG/ML Syringe IV (15:41)
[2022-04-25] MEDS: 0.9% Normal Saline 1,000 ML 150 ML IV (15:42)
[2022-04-25 15:46] VITALS: BP 125/50; PULSE 100; RESP 16; TEMP 37.1; O2SAT 93
[2022-04-25 15:52] LABS: Absolute Lymphocyte Count 0.62 X10^3/uL (0.83-4.51); Basophil# 0.03 X10^3/uL; Basophil% 0.6 % (0-1); Eosinophil# 0.08 X10^3/uL; Eosinophils% 1.5 % (0-5); Hematocrit 35.4 % (40-54); Hemoglobin 12.3 g/dL (13.0-16.5); Lymphocyte # 0.62 X10^3/ul (0.83-4.51); Lymphocyte % 11.8 % (19-41); Mean Corp Hgb Conc 34.7 g/dL (32-36); Mean Corpuscular Hgb 32.3 pg (27.0-32.0); Mean Corpuscular Volume 92.9 fL (80-94); Mean Platelet Vol. 11.3 fl (6.2-12.0); Monocyte# 0.55 X10^3/uL; Monocyte% 10.5 % (0-10); NRBC Flagged by Analyzer 0 % (0-5); Neutrophil # 3.95 X10^3/uL (2.7-7.7); Neutrophil % 75.2 % (47-70); POSITIVE COUNT YES; Platelet Count 51 K/mm3 (150-450); RBC Distribution Width CV 14.6 % (11.6-14.6); RBC Distribution Width SD 49.6 fl (35.1-43.9); Red Blood Count 3.81 M/mm3 (4.6-6.2); White Blood Count 5.3 K/mm3 (4.4-11.0)
[2022-04-25 16:08] LABS: Anion Gap 4 (5-15); BUN 13 mg/dL (7-18); BUN/Creat Ratio 15.9 RATIO (10-20); Calcium,Total 8.1 mg/dL (8.5-10.1); Chloride 109 mmol/L (98-107); Creatinine, Serum 0.82 mg/dL (0.70-1.30); EST Glomerular Filtration Rate 107 mL/min (>60); Est Glom Filt Rate - Afr Amer 129 mL/min (>60); Glucose 154 mg/dL (74-106); Potassium 4.2 mmol/L (3.5-5.1); Sodium Level 137 mmol/L (136-145)
[2022-04-25 16:13] LABS: Lactic Acid 1.8 mmol/L (0.4-1.9)
[2022-04-25 16:18] LABS: Differential Indicated SCAN CRITERIA MET
[2022-04-25 16:21] LABS: Platelet Estimate MOD DEC (ADEQ)
[2022-04-25 16:23] LABS: Red Cell Morphology N CHROM NORMAL (NORM C&C)
[2022-04-25 16:24] LABS: Anisocytosis RARE; Erythrocyte Sedimentation Rate < 1 mm/hr (0-20); Macrocytosis RARE
[2022-04-25 16:46] VITALS: BP 130/55; PULSE 98; RESP 16; TEMP 37.1; O2SAT 94
== END 2022-04-25 17:22 | disposition home or self-care (01) ==
PROVIDERS: Emergency Provider Emergency Medicine; PCP Internal Medicine; Visit Provider Emergency Medicine
DX: L03.116 Cellulitis of left lower limb (principal); E11.69 Type 2 diabetes mellitus with other specified complication; Z87.891 Personal history of nicotine dependence; Z79.84 Long term (current) use of oral hypoglycemic drugs
CPT/HCPCS: 80048; 83605; 85025; 85652; 86140; 87040; 93971; 96361; 96365; 96375; 99283; J7030; A4216; J0295; J2405

== ENCOUNTER 2022-05-25 22:56 | Emergency (ER) | payer OTHER, SELFPAY ==
[2022-05-25 22:56] VITALS: BP 160/73; PULSE 101; RESP 20; TEMP 36.9; O2SAT 100; BMI 39.4
[2022-05-26 00:10] LABS: Absolute Lymphocyte Count 0.64 X10^3/uL (0.83-4.51); Absolute Neutrophil Count 2.7 X10^3/uL (2.0-7.7); Basophil# 0.02 X10^3/uL; Basophil% 0.5 % (0-1); Eosinophil# 0.13 X10^3/uL; Eosinophils% 3.4 % (0-5); Hematocrit 34.5 % (40-54); Hemoglobin 11.7 g/dL (13.0-16.5); Lymphocyte # 0.64 X10^3/ul (0.83-4.51); Lymphocyte % 16.6 % (19-41); Mean Corp Hgb Conc 33.9 g/dL (32-36); Mean Corpuscular Hgb 32.2 pg (27.0-32.0); Mean Platelet Vol. 11.1 fl (6.2-12.0); Monocyte# 0.41 X10^3/uL; Monocyte% 10.6 % (0-10); NRBC Flagged by Analyzer 0 % (0-5); Neutrophil # 2.65 X10^3/uL (2.7-7.7); Neutrophil % 68.6 % (47-70); POSITIVE COUNT YES; RBC Distribution Width SD 52.4 fl (35.1-43.9); Red Blood Count 3.63 M/mm3 (4.6-6.2); White Blood Count 3.9 K/mm3 (4.4-11.0)
[2022-05-26 00:11] LABS: Differential Indicated SCAN CRITERIA MET; Platelet Count 45 K/mm3 (150-450)
[2022-05-26 00:22] LABS: Anion Gap 4 (5-15); BUN 10 mg/dL (7-18); BUN/Creat Ratio 11.7 RATIO (10-20); Calcium,Total 7.9 mg/dL (8.5-10.1); Chloride 114 mmol/L (98-107); Creatinine, Serum 0.86 mg/dL (0.70-1.30); EST Glomerular Filtration Rate 101 mL/min (>60); Est Glom Filt Rate - Afr Amer 123 mL/min (>60); Estimated Creatinine Clearance 125.55 ml/min; Glucose 255 mg/dL (74-106); Potassium 4.1 mmol/L (3.5-5.1); Sodium Level 142 mmol/L (136-145)
[2022-05-26] MEDS: HYDROcodone Bitartrate/Apap 5/325 Tablet PO (00:23)
[2022-05-26 00:34] LABS: Differential Comment SCANNED
--- NOTE | 2022-05-26 00:37 | EDS_ITS ---
HPI History of Present Illness Chief Complaint: Cellulitis Informant: patient Onset/Context/Timing Onset: Today Context: Gradual Onset Timing: Continuous Quality: Burning, throbbing Location: Left lower leg Worsened by: Palpation Relieved by: Nothing Narrative Narrative: Patient presents with redness and swelling to his left lower leg that began today. Patient states he started having subjective fevers and chills last night. Patient states he has a history of cellulitis in his left lower leg and his antibiotics at home. Patient states he started taking doxycycline last night. Patient states he has taken 3 doses of this. Patient states his redness and swelling is getting worse. Patient admits to some drainage from the anterior aspect of the left lower leg. Patient describes his pain as burning and throbbing. Patient states it is worse with palpation. Patient denies any trauma or injury. 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 Lumbar disc disease with radiculopathy Lumbar disc prolapse with compression radiculopathy Malnutrition Morbid obesity due to excess calories Other intervertebral disc degeneration, lumbar region Perianal abscess Sleep apnea Spinal stenosis of lumbar region with neurogenic claudication Thrombocytopenia Ulcer of left ankle Ulcer of right lower extremity with fat layer exposed Vein disorder Venous insufficiency Home Medications methocarbamol 500 mg tablet 750 mg PO QHS leg cramps 01/07/17 [History Last Taken 12/24/21] gabapentin 300 mg capsule 300 mg PO BID neuropathy 02/11/19 [History Last Taken 12/25/21] metformin 850 mg tablet 850 mg PO BIDCM #60 tabs 10/06/20 [Rx Last Taken 12/25/21] lisinopril 10 mg tablet 40 mg PO DAILY blood pressure 04/05/21 [History Last Taken 12/25/21] oxycodone 5 mg tablet 2.5 mg PO DAILY PAIN 04/05/21 [History Last Taken 12/25/21] tamsulosin 0.4 mg capsule 0.4 mg PO QHS prostate 04/05/21 [History Last Taken 12/24/21] dextroamphetamine-amphetamine 15 mg tablet 15 mg PO BID 12/25/21 [History Last Taken 12/25/21] lamotrigine 25 mg tablet 100 mg PO QHS seizures 12/25/21 [History Last Taken 12/25/21] omeprazole 40 mg capsule,delayed release 40 mg PO DAILY GERD 12/25/21 [History Last Taken 12/25/21] oxycodone 5 mg tablet 5 mg PO QHS PAIN 12/25/21 [History Last Taken 12/24/21] quetiapine 50 mg tablet 50 mg PO QHS mental health 12/25/21 [History Last Taken 12/24/21] sildenafil 50 mg tablet 50 mg PO X1 PRN Erectile Dysfunction 12/25/21 [History Last Taken Unknown] cephalexin 500 mg capsule 500 mg PO Q6 #28 CAPSULES 04/03/22 [Rx Last Taken Unknown] sulfamethoxazole 800 mg-trimethoprim 160 mg tablet 1 tab PO BID #14 TABLETS 04/03/22 [Rx Last Taken Unknown] cephalexin 500 mg capsule 500 mg PO Q6 #40 caps 04/25/22 [Rx Last Taken Unknown] ondansetron 4 mg disintegrating tablet 4 mg PO Q8H PRN nausea and vomiting #10 tabs 04/25/22 [Rx Last Taken Unknown] sulfamethoxazole 800 mg-trimethoprim 160 mg tablet (Bactrim DS) 1 tab PO BID #20 tabs 04/25/22 [Rx Last Taken Unknown] Allergy/AdvReac Type Severity Reaction Status Date / Time No Known Allergies Allergy Verified 05/25/22 22:58 Surgical History history incision and drainage perianal abscess (~10/05/20) History of cholecystectomy History of gastric surgery Status post laparoscopic Lazaro fundoplication Social History household members: spouse and children Smoking Status: Former smoker alcohol intake: current alcohol intake frequency: other substance use type: does not use ROS ROS ED Constitutional Constitutional ED: Reports chills, fever(s) and subjective Eyes Eyes: Denies blurry vision or change in vision ENT ENT ED: Denies rhinorrhea or sore throat Cardiovascular Cardiovascular: Denies chest pain or palpitations Respiratory/Chest Respiratory/Chest: Denies cough or dyspnea Gastrointestinal Gastrointestinal: Denies nausea or vomiting Genitourinary Genitourinary ED: Denies dysuria or hematuria Musculoskeletal Musculoskeletal: Reports back pain; Denies neck pain Integumentary Denies abscess or rash Neurologic Neurologic: Denies headache(s) or weakness Allergic/Immunologic Allergic/Immunologic ED: Denies mouth swelling or urticaria EXAM Physical Exam Const Vital Signs: 05/25/22 22:56 Temperature 98.4 F Temperature Source Temporal Pulse Rate 101 H Respiratory Rate 20 H Blood Pressure 160/73 H Blood Pressure Mean 102 Pulse Ox 100 Oxygen Delivery Method Room Air Positive well nourished, well developed and obese General Appearance ED: well developed and NAD Nutritional Appearance: obese HEENT Reports moist mucous membranes Extremity Extremity Narrative: There is some erythema and warmth to the left lower leg, foot, and ankle. There is some mild serous drainage from a small open wound over the anterior aspect of the left lower leg. There is no purulent drainage noted. There is no abscess formation. Sensation was intact to light touch in the digits. Capillary refill was less than 2 seconds in all digits. Pedal pulses are equal bilaterally. There is good range of motion. General Extremety ED: Yes edema and tenderness General Extremity: edema Neuro oriented x3, CN's II-XII intact bilaterally and no sensory deficits noted Sensorium / Orientation: alert Motor Exam: strength 5/5 throughout Psych mental status grossly normal MDM MDM MDM Narrative Medical decision making narrative: Patient was given a dose of Unasyn here. Patient was given a dose of [place]. CBC shows a white blood cell count of 3.9, hemoglobin was 11.7 and hematocrit was 34.5. Platelets were 45. These are consistent with prior results. Basic metabolic profile showed a slightly elevated glucose of 255 but was otherwise within normal limits. Patient was instructed to continue his doxycycline as prescribed. Patient was instructed to follow-up with his primary care physician in 3 to 5 days. Patient understood and was agreeable with the plan. All questions were answered. Lab Data Attestation: I reviewed the patient's lab results. Labs: Laboratory Results - last 24 hr 05/25/22 05/25/22 23:59 23:59 WBC 3.9 L RBC 3.63 L Hgb 11.7 L Hct 34.5 L MCV 95.0 H MCH 32.2 H MCHC 33.9 RDW Std Deviation 52.4 H RDW Coeff of Ramya 15.0 H Plt Count 45 L* MPV 11.1 Immature Gran % (Auto) 0.300 Neut % (Auto) 68.6 Lymph % (Auto) 16.6 L [place] % (Auto) 10.6 H Eos % (Auto) 3.4 Baso % (Auto) 0.5 Absolute Neuts (auto) 2.7 Absolute Lymphs (auto) 0.64 L Nucleated RBC % 0 Differential Comment SCANNED Diff Path Review May foll Sodium 142 Potassium 4.1 Chloride 114 H Carbon Dioxide 24.0 Anion Gap 4 L BUN 10 Creatinine 0.86 Estim Creat Clear Calc 125.55 Est GFR (MDRD) Af Amer 123 Est GFR (MDRD) Non-Af 101 BUN/Creatinine Ratio 11.7 Glucose 255 H Calcium 7.9 L Discharge Plan Triage Chief Complaint: Cellulitis ED Provider: Robe Bojorquez Dx/Rx/DC Orders Clinical Impression: Cellulitis of left lower leg, Thrombocytopenia, Morbid obesity due to excess calories Instructions: ED Cellulitis Prescriptions: No Action methocarbamol 500 MG tablet 750 mg PO QHS gabapentin 300 MG capsule 300 mg PO BID Rx Instructions: take 300 mg BID metformin 850 MG tablet 850 mg PO BIDCM Qty: 60 0RF lisinopril 10 mg tablet 40 mg PO DAILY Label Comments: Take 1 tablet by mouth once daily. tamsulosin 0.4 mg capsule 0.4 mg PO QHS oxycodone 5 mg tablet 2.5 mg PO DAILY sildenafil 50 mg tablet 50 mg PO X1 PRN (Reason: Erectile Dysfunction) Label Comments: Take 1 tab. by mouth once daily as needed 1 hour before sexual activity; may take up to 4 hours before sexual activity. lamotrigine 25 mg tablet 100 mg PO QHS Label Comments: take 1 tablet by mouth every evening for 7 days then 2 tablets by... (REFER TO PRESCRIPTION NOTES). quetiapine 50 mg tablet 50 mg PO QHS Label Comments: take 1 tablet by mouth at bedtime omeprazole 40 mg capsule,delayed release(DR/EC) 40 mg PO DAILY Label Comments: Take 1 capsule by mouth once daily. oxycodone 5 mg tablet 5 mg PO QHS Label Comments: TAKE 1/2 (ONE-HALF) OF A TABLET THREE TIMES DAILY FOR 28 DAYS dextroamphetamine-amphetamine 15 mg Tablet 15 mg PO BID sulfamethoxazole-trimethoprim [sulfamethoxazole-trimethoprim] 800-160 mg tablet 1 tab PO BID Qty: 14 0RF cephalexin [cephalexin] 500 mg capsule 500 mg PO Q6 Qty: 28 0RF sulfamethoxazole-trimethoprim [Bactrim DS] 800-160 mg tablet 1 tab PO BID Qty: 20 0RF cephalexin 500 mg capsule 500 mg PO Q6 Qty: 40 0RF ondansetron 4 mg tablet,disintegrating 4 mg PO Q8H PRN (Reason: nausea and vomiting) Qty: 10 0RF Primary Care Provider: Omari Box Referrals: Omari Box MD [Primary Care Provider] - 3-5 Days Disposition Disposition: Home, Self Care
[2022-05-26 01:19] VITALS: BP 144/74; PULSE 75; RESP 16; O2SAT 99
[2022-05-27 07:03] LABS: Pathologist Review Reviewed
== END 2022-05-26 01:22 | disposition home or self-care (01) ==
PROVIDERS: Emergency Provider Emergency Medicine; PCP Internal Medicine; Visit Provider Emergency Medicine
DX: L03.116 Cellulitis of left lower limb (principal); E66.01 Morbid (severe) obesity due to excess calories; D69.6 Thrombocytopenia, unspecified; Z87.891 Personal history of nicotine dependence; Z86.718 Personal history of other venous thrombosis and embolism
CPT/HCPCS: 80048; 85025; 99283; J7050; A4216; J0295

== ENCOUNTER → 2022-06-05 | Outpatient (CLI) | payer OTHER, SELFPAY ==
[2022-06-05 15:46] LABS: Amphetamine Urine VISTA POSITIVE (<1000 ng/mL); Barbiturate Urine VISTA NEGATIVE (< 200 ng/mL); Benzodiazepine Urine VISTA NEGATIVE (< 200 ng/mL); Cocaine Urine VISTA NEGATIVE (< 300 ng/mL); Ecstacy Urine VISTA NEGATIVE (< 500 ng/mL); Methadone Urine VISTA NEGATIVE (< 300 ng/mL); PCP Urine VISTA NEGATIVE (< 25 ng/mL); THC Urine VISTA NEGATIVE (< 50 ng/mL); Vista UDS pH Range 5
== END | disposition home or self-care (01) ==
LOC: LAB 14:17
PROVIDERS: PCP Internal Medicine; Referring Provider Anesthesiology Pain Medicine; Visit Provider Anesthesiology Pain Medicine
DX: F11.20 Opioid dependence, uncomplicated (principal)
CPT/HCPCS: 80307

== ENCOUNTER 2022-09-14 13:01 | Emergency (ER) | payer OTHER, SELFPAY ==
[2022-09-14 13:02] VITALS: BP 143/51; PULSE 128; RESP 16; TEMP 37.3; O2SAT 96; BMI 39.9
--- NOTE | 2022-09-14 13:13 | EKG12_ITS ---
Test Reason : Blood Pressure : / mmHG Vent. Rate : 111 BPM Atrial Rate : 111 BPM P-R Int : 142 ms QRS Dur : 092 ms QT Int : 376 ms P-R-T Axes : 054 015 051 degrees QTc Int : 511 ms Sinus tachycardia Otherwise normal ECG Confirmed by JILLIAN CULLEN, HERMILA ([id number]), order editor ELICIA BARBA ([id number]) on 09/15/2022 10:08:10 AM Referred By: Alicia Confirmed By:HERMILA WALSH MD
[2022-09-14 13:54] VITALS: BP 115/48; PULSE 105; RESP 22; TEMP 37.3; O2SAT 95
[2022-09-14] MEDS: 0.9% Normal Saline 1,000 ML 1000 ML IV (13:54)
--- NOTE | 2022-09-14 13:56 | EX.ED.DYSGE1 ---
HPI History of Present Illness Chief Complaint: Cellulitis Informant: patient Onset/Context/Timing Onset: Yesterday Context: Gradual Onset Timing: Continuous Quality: Black spots, lightheadedness Location: Vision Worsened by: Nothing Relieved by: Nothing Narrative Narrative: Patient presents with lightheadedness and tachycardia that began yesterday evening. Patient states it has gradually gotten worse. Patient states he was seeing spots in his vision while he was trying to watch television last night. Patient states they were black spots. Patient thinks they were in both eyes. Patient states nothing makes his symptoms worse and nothing makes them better. Patient woke up today and noted some redness and warmth to the medial aspect of his right thigh. Patient has had cellulitis before. Patient denies any nausea or vomiting. Patient admits to some right-sided abdominal pain. Patient denies any nausea or vomiting. Patient denies any fevers or chills. 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 Lumbar disc disease with radiculopathy Lumbar disc prolapse with compression radiculopathy Malnutrition Morbid obesity due to excess calories Other intervertebral disc degeneration, lumbar region Perianal abscess Sleep apnea Spinal stenosis of lumbar region with neurogenic claudication Thrombocytopenia Ulcer of left ankle Ulcer of right lower extremity with fat layer exposed Vein disorder Venous insufficiency Home Medications methocarbamol 500 mg tablet 750 mg PO QHS leg cramps 01/07/17 [History Last Taken 12/24/21] gabapentin 300 mg capsule 300 mg PO BID neuropathy 02/11/19 [History Last Taken 12/25/21] lisinopril 10 mg tablet 40 mg PO DAILY blood pressure 04/05/21 [History Last Taken 12/25/21] tamsulosin 0.4 mg capsule 0.4 mg PO QHS prostate 04/05/21 [History Last Taken 12/24/21] dextroamphetamine-amphetamine 15 mg tablet 15 mg PO BID 12/25/21 [History Last Taken 12/25/21] lamotrigine 25 mg tablet 100 mg PO QHS seizures 12/25/21 [History Last Taken 12/25/21] omeprazole 40 mg capsule,delayed release 40 mg PO DAILY GERD 12/25/21 [History Last Taken 12/25/21] oxycodone 5 mg tablet 5 mg PO DAILY PAIN 12/25/21 [History Last Taken 12/24/21] quetiapine 50 mg tablet 50 mg PO QHS mental health 12/25/21 [History Last Taken 12/24/21] sildenafil 50 mg tablet 50 mg PO X1 PRN Erectile Dysfunction 12/25/21 [History Last Taken Unknown] ondansetron 4 mg disintegrating tablet 4 mg PO Q8H PRN nausea and vomiting #10 tabs 04/25/22 [Rx Last Taken Unknown] amoxicillin 875 mg-potassium clavulanate 125 mg tablet 875 mg PO Q12H #20 TABLETS 09/14/22 [Rx Last Taken Unknown] metformin 850 mg tablet 1,000 mg PO QHS 09/14/22 [History Last Taken Unknown] Allergy/AdvReac Type Severity Reaction Status Date / Time No Known Allergies Allergy Verified 09/14/22 13:01 Surgical History history incision and drainage perianal abscess (~10/05/20) History of cholecystectomy History of gastric surgery Status post laparoscopic Lazaro fundoplication Social History household members: spouse and children Smoking Status: Former smoker quit date: 10/12/11 pack-years: 2 Tobacco: How many years used: 20 alcohol intake: never substance use type: does not use ROS ROS ED Constitutional Constitutional ED: Denies chills or fever(s) Eyes Eyes: Denies blurry vision or change in vision ENT ENT ED: Denies rhinorrhea or sore throat Cardiovascular Cardiovascular: Denies chest pain or palpitations Respiratory/Chest Respiratory/Chest: Denies cough or dyspnea Gastrointestinal Gastrointestinal: Reports abdominal pain; Denies nausea or vomiting Genitourinary Genitourinary ED: Denies dysuria or hematuria Musculoskeletal Musculoskeletal: Reports back pain; Denies neck pain Integumentary Reports rash; Denies abscess Neurologic Neurologic: Reports headache(s); Denies weakness Allergic/Immunologic Allergic/Immunologic ED: Denies mouth swelling or urticaria EXAM Physical Exam Const Vital Signs: 09/14/22 13:02 09/14/22 13:17 09/14/22 13:54 Temperature 99.2 F H 99.1 F Temperature Source Temporal Oral Pulse Rate 128 H 105 H Respiratory Rate 16 22 H Respiratory Effort Short of Breath Respiratory Pattern Tachypnea Blood Pressure 143/51 H 115/48 L Blood Pressure Mean 81 70 Pulse Ox 96 95 Oxygen Delivery Method Room Air Room Air 09/14/22 14:04 09/14/22 15:04 Temperature 98.8 F 98.5 F Temperature Source Oral Oral Pulse Rate 101 H 104 H Respiratory Rate 20 H 19 H Respiratory Effort Respiratory Pattern Blood Pressure 119/42 L 118/36 L Blood Pressure Mean 67 63 Pulse Ox 95 94 Oxygen Delivery Method Room Air Room Air Positive well nourished, well developed, obese and unkempt General Appearance ED: unkempt, well developed and NAD Nutritional Appearance: obese HEENT Reports moist mucous membranes Neck supple and no JVD Resp normal respiratory effort and clear to auscultation bilaterally Cardio regular rate, regular rhythm and no murmurs GI normal to inspection, nondistended, normoactive bowel sounds Palpation: soft and tender RLQ; Negative for guarding or rebound tenderness present Extremity normal to inspection General Extremety ED: Negative for edema or tenderness General Extremity: Negative for edema Neuro oriented x3, CN's II-XII intact bilaterally and no sensory deficits noted Sensorium / Orientation: alert Motor Exam: strength 5/5 throughout Psych mental status grossly normal Appearance: unkempt Skin Skin Narrative: There is some erythema and warmth over the medial aspect of the right thigh. There is no induration. There is no abscess formation. There is no fluctuance. There is no discharge or drainage. There are no petechia noted. There is no involvement of mucous membranes. MDM MDM MDM Narrative Medical decision making narrative: Patient was given IV fluids. Blood cultures were obtained. Patient was given a dose of Ancef. Patient was given a dose of morphine. EKG was obtained. On my interpretation, it showed a sinus tachycardia with a rate of 111. NM interval, QRS interval, and QTc intervals were all normal. Inman was normal. There are no acute ST or T wave changes. CBC shows a mild anemia with a hemoglobin of 10.9 hematocrit 31.7. White blood cell count was normal. Platelets were 45. These are consistent with prior results. Comprehensive metabolic profile showed a glucose of 272. Anion gap was normal. Total bilirubin was slightly elevated at 3.1. AST was slightly elevated at 49. ALT was normal. Alkaline phosphatase was normal. Lactate was slightly elevated at 2.3. COVID-19 rapid antigen was obtained and was negative. Influenza A and influenza B antigens were obtained and were negative. Patient is feeling better on reevaluation. Patient's heart rate improved after IV fluids to 104. Patient was given prescription for Augmentin. Patient was instructed to follow-up with his primary care physician in 3 to 5 days. Patient was instructed return if worse in any way. Patient understood and was agreeable with the plan. All questions were answered. Lab Data Attestation: I reviewed the patient's lab results. Labs: Laboratory Results - last 24 hr 09/14/22 09/14/22 09/14/22 13:42 13:42 13:42 WBC 5.6 RBC 3.42 L Hgb 10.9 L Hct 31.7 L MCV 92.7 MCH 31.9 MCHC 34.4 RDW Std Deviation 51.8 H RDW Coeff of Ramya 15.4 H Plt Count 45 L* MPV 11.4 Immature Gran % (Auto) 0.200 Neut % (Auto) 83.8 H Lymph % (Auto) 7.2 L [place] % (Auto) 6.7 Eos % (Auto) 1.6 Baso % (Auto) 0.5 Absolute Neuts (auto) 4.7 Absolute Lymphs (auto) 0.40 L Nucleated RBC % 0 Diff Path Review May foll Platelet Estimate MOD DEC Poikilocytosis RARE Anisocytosis RARE Ovalocytes 1+ Sodium 138 Potassium 4.2 Chloride 109 H Carbon Dioxide 23.0 Anion Gap 6 BUN 12 Creatinine 1.20 Estim Creat Clear Calc 89.98 Est GFR (MDRD) Af Amer 83 Est GFR (MDRD) Non-Af 69 BUN/Creatinine Ratio 10.0 Glucose 272 H Lactic Acid 2.3 H* Calcium 8.3 L Total Bilirubin 3.10 H AST 49 H ALT 24 Alkaline Phosphatase 83 Total Protein 5.8 L Albumin 2.6 L Globulin 3.2 Albumin/Globulin Ratio 0.8 L EKG Initial EKG: Attestation: I personally reviewed and interpreted this EKG as follows: Interpretation: No Acute Injury Pattern and Sinus Tachycardia (111) Prior EKG tracings: available for review Prior: Unchanged (04/03/2022) Discharge Plan Triage Chief Complaint: Cellulitis ED Provider: Robe Bojorquez Dx/Rx/DC Orders Clinical Impression: Cellulitis of right thigh, Thrombocytopenia Instructions: ED Cellulitis Prescriptions: New amoxicillin-pot clavulanate [amoxicillin-pot clavulanate] 875-125 mg tablet 875 mg PO Q12H Qty: 20 0RF No Action methocarbamol 500 MG tablet 750 mg PO QHS gabapentin 300 MG capsule 300 mg PO BID Rx Instructions: take 300 mg BID lisinopril 10 mg tablet 40 mg PO DAILY Label Comments: Take 1 tablet by mouth once daily. tamsulosin 0.4 mg capsule 0.4 mg PO QHS sildenafil 50 mg tablet 50 mg PO X1 PRN (Reason: Erectile Dysfunction) Label Comments: Take 1 tab. by mouth once daily as needed 1 hour before sexual activity; may take up to 4 hours before sexual activity. lamotrigine 25 mg tablet 100 mg PO QHS Label Comments: take 1 tablet by mouth every evening for 7 days then 2 tablets by... (REFER TO PRESCRIPTION NOTES). quetiapine 50 mg tablet 50 mg PO QHS Label Comments: take 1 tablet by mouth at bedtime omeprazole 40 mg capsule,delayed release(DR/EC) 40 mg PO DAILY Label Comments: Take 1 capsule by mouth once daily. oxycodone 5 mg tablet 5 mg PO DAILY Label Comments: TAKE 1/2 (ONE-HALF) OF A TABLET THREE TIMES DAILY FOR 28 DAYS dextroamphetamine-amphetamine 15 mg Tablet 15 mg PO BID ondansetron 4 mg tablet,disintegrating 4 mg PO Q8H PRN (Reason: nausea and vomiting) Qty: 10 0RF metformin 850 MG tablet 1,000 mg PO QHS Primary Care Provider: Omari Box Referrals: Omari Box MD [Primary Care Provider] - 3-5 Days Disposition Disposition: Home, Self Care
[2022-09-14 14:04] VITALS: BP 119/42; PULSE 101; RESP 20; TEMP 37.1; O2SAT 95
[2022-09-14 14:05] LABS: Absolute Neutrophil Count 4.7 X10^3/uL (2.0-7.7); Basophil# 0.03 X10^3/uL; Basophil% 0.5 % (0-1); Eosinophil# 0.09 X10^3/uL; Eosinophils% 1.6 % (0-5); Hematocrit 31.7 % (40-54); Hemoglobin 10.9 g/dL (13.0-16.5); Lymphocyte % 7.2 % (19-41); Mean Corp Hgb Conc 34.4 g/dL (32-36); Mean Corpuscular Hgb 31.9 pg (27.0-32.0); Mean Corpuscular Volume 92.7 fL (80-94); Mean Platelet Vol. 11.4 fl (6.2-12.0); Monocyte# 0.37 X10^3/uL; Monocyte% 6.7 % (0-10); NRBC Flagged by Analyzer 0 % (0-5); Neutrophil # 4.65 X10^3/uL (2.7-7.7); Neutrophil % 83.8 % (47-70); POSITIVE COUNT YES; POSITIVE DIFFERENTIAL YES; RBC Distribution Width CV 15.4 % (11.6-14.6); RBC Distribution Width SD 51.8 fl (35.1-43.9); Red Blood Count 3.42 M/mm3 (4.6-6.2); White Blood Count 5.6 K/mm3 (4.4-11.0)
[2022-09-14 14:16] LABS: Differential Indicated SCAN CRITERIA MET; Platelet Count 45 K/mm3 (150-450)
--- NOTE | 2022-09-14 14:18 | ED.RN ---
PLATELETS 45. DR ROLON
[2022-09-14 14:20] LABS: ALB/GLOB Ratio 0.8 RATIO (0.9-2.4); AST(SGOT) 49 U/L (15-37); Alanine Aminotransfer ALT/SGPT 24 U/L (16-61); Albumin, Serum 2.6 g/dL (3.2-5.0); Alkaline Phosphatase 83 U/L (45-117); Anion Gap 6 (5-15); BUN 12 mg/dL (7-18); Calcium,Total 8.3 mg/dL (8.5-10.1); Chloride 109 mmol/L (98-107); EST Glomerular Filtration Rate 69 mL/min (>60); Est Glom Filt Rate - Afr Amer 83 mL/min (>60); Estimated Creatinine Clearance 89.98 ml/min; Globulin 3.2 g/dL (2.2-4.2); Glucose 272 mg/dL (74-106); Potassium 4.2 mmol/L (3.5-5.1); Protein, Total 5.8 g/dL (6.4-8.2); Sodium Level 138 mmol/L (136-145)
[2022-09-14 14:28] LABS: Lactic Acid 2.3 mmol/L (0.4-1.9)
[2022-09-14] MEDS: Morphine 4 MG/ML Syringe IV (14:40)
[2022-09-14 14:43] LABS: Anisocytosis RARE; Ovalocyte 1+; Platelet Estimate MOD DEC (ADEQ); Poikilocytosis RARE
[2022-09-14 15:04] VITALS: BP 118/36; PULSE 104; RESP 19; TEMP 36.9; O2SAT 94
[2022-09-14] MEDS: Cefazolin 1 GM/50 ML BAG IV (15:17)
[2022-09-14 16:00] VITALS: BP 128/45; PULSE 103; RESP 21; TEMP 37.3; O2SAT 97
[2022-09-14 18:00] LABS: Reflex Lactate? Y
--- NOTE | 2022-09-15 13:31 | ED.RN ---
LAB CALLS TO ED WITH POSITIVE BLOOD CULTURE RESULTS FOR GRAM POSITIVE COCCI AND CLUSTERS. DR. MI INFORMED, REPORTS AUGMENTIN (THE PRESCRIPTION THE PT WAS SENT HOME WITH) SHOULD COVER MOST GRAM POSITIVE COCCI, BUT TO AWAIT THE SENSITIVITY RESULTS BEFORE INITIATING CALL BACK.
[2022-09-15 13:57] LABS: Pathologist Review Reviewed
== END 2022-09-14 16:48 | disposition home or self-care (01) ==
PROVIDERS: Emergency Provider Emergency Medicine; PCP Internal Medicine; Visit Provider Emergency Medicine
DX: L03.115 Cellulitis of right lower limb (principal); E11.622 Type 2 diabetes mellitus with other skin ulcer; L97.312 Non-pressure chronic ulcer of right ankle with fat layer exposed; L97.329 Non-pressure chronic ulcer of left ankle with unspecified severity; D69.6 Thrombocytopenia, unspecified; Z87.891 Personal history of nicotine dependence; R10.9 Unspecified abdominal pain; Z79.84 Long term (current) use of oral hypoglycemic drugs; E66.9 Obesity, unspecified; Z20.822 Contact with and (suspected) exposure to COVID-19
CPT/HCPCS: 80053; 83605; 85025; 87040; 87077; 87149; 87186; 87428; 93005; 96361; 96365; 96375; 99284; J7030; A4216

== ENCOUNTER → 2022-10-27 | Outpatient (CLI) | payer OTHER, SELFPAY ==
--- NOTE | 2022-10-27 16:24 | MRI_ITS ---
PROCEDURE: LUMBAR SPINE MRI WITHOUT CONTRAST COMPARISONS: 06/25/2021 CLINICAL INDICATION: Low back pain, right posterior pelvic pain and radiculopathy TECHNIQUE: Noncontrast lumbosacral spine MRI study was performed multiple sequences in sagittal and axial planes. FINDINGS: Alignment of the lumbosacral spine is normal. Normal vertebral marrow signal. Normal partially visualized sacroiliac joints. The conus medullaris terminates at L1. No abnormal signal within the visualized cord. L1-L2: Normal disc height and morphology. Normal spinal canal and neuroforamina. L2-L3: Normal disc height and morphology. Normal spinal canal and neuroforamina. L3-L4: Normal disc height and morphology. Normal spinal canal and neuroforamina. L4-L5: Normal disc height and morphology. Normal spinal canal and neuroforamina. L5-S1: Modic type II endplate change. Disc bulge. Mild bilateral neural foraminal stenosis. No spinal canal stenosis. Mild paraspinous muscle fatty infiltration. MRI/Spine Lumbar (Routine) IMPRESSION: Mild bilateral neural foraminal stenosis at L5-S1 may be slightly progressed compared to 06/25/2021. Electronically Signed: Warren Cole MD at 20:49 EST ,
== END | disposition home or self-care (01) ==
PROVIDERS: PCP Internal Medicine; Referring Provider Orthopaedic Surgery; Visit Provider Orthopaedic Surgery
DX: M48.062 Spinal stenosis, lumbar region with neurogenic claudication (principal); M54.16 Radiculopathy, lumbar region; M48.07 Spinal stenosis, lumbosacral region
CPT/HCPCS: 72148

== ENCOUNTER 2023-01-24 18:15 | Emergency (ER) | payer OTHER, SELFPAY ==
[2023-01-24] VITALS (7 sets, daily range): BP systolic 103–167; BP diastolic 21–78; PULSE 103–106; RESP 17–22; TEMP 37.6; O2SAT 93–100; BMI 43.7
--- NOTE | 2023-01-24 18:24 | EX.ED.DYSGE1 ---
HPI History of Present Illness Chief Complaint: General Illness Narrative Narrative: 47-year-old male here with fever, chills. States he recently changed his BuSpar prescription and thinks this may be a precipitant. He also states he has had sepsis before from cellulitis. Denies any new skin changes. Denies any shortness of breath, cough. Denies any abdominal pain or vomiting. He does note nausea. Denies any chest pain. Denies any urinary complaints or diarrhea. Denies any recent sick contacts. 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 Lumbar disc disease with radiculopathy Lumbar disc prolapse with compression radiculopathy Malnutrition Morbid obesity due to excess calories Other intervertebral disc degeneration, lumbar region Perianal abscess Sleep apnea Spinal stenosis of lumbar region with neurogenic claudication Thrombocytopenia Ulcer of left ankle Ulcer of right lower extremity with fat layer exposed Vein disorder Venous insufficiency Home Medications gabapentin 300 mg capsule 300 mg PO BID neuropathy 02/11/19 [History Last Taken 12/25/21] lisinopril 10 mg tablet 40 mg PO DAILY blood pressure 04/05/21 [History Last Taken 12/25/21] tamsulosin 0.4 mg capsule 0.4 mg PO QHS prostate 04/05/21 [History Last Taken 12/24/21] dextroamphetamine-amphetamine 15 mg tablet 15 mg PO BID 12/25/21 [History Last Taken 12/25/21] lamotrigine 25 mg tablet 100 mg PO QHS seizures 12/25/21 [History Last Taken 12/25/21] omeprazole 40 mg capsule,delayed release 40 mg PO DAILY GERD 12/25/21 [History Last Taken 12/25/21] quetiapine 50 mg tablet 50 mg PO QHS mental health 12/25/21 [History Last Taken 12/24/21] sildenafil 50 mg tablet 50 mg PO X1 PRN Erectile Dysfunction 12/25/21 [History Last Taken Unknown] ondansetron 4 mg disintegrating tablet 4 mg PO Q8H PRN nausea and vomiting #10 tabs 04/25/22 [Rx Last Taken Unknown] metformin 850 mg tablet 1,000 mg PO QHS 09/14/22 [History Last Taken Unknown] duloxetine 30 mg capsule,delayed release 30 mg PO PRN muscle cramps 01/24/23 [History Last Taken Unknown] cephalexin 500 mg capsule 500 mg PO Q6 7 days #28 CAPSULES 01/25/23 [Rx Last Taken Unknown] oxycodone 5 mg capsule 5 mg PO Q6H PRN pain 2 days #8 caps 01/25/23 [Rx Last Taken Unknown] sulfamethoxazole 800 mg-trimethoprim 160 mg tablet (Bactrim DS) 1 tab PO BID 7 days #14 tabs 01/25/23 [Rx Last Taken Unknown] Allergy/AdvReac Type Severity Reaction Status Date / Time No Known Allergies Allergy Verified 01/24/23 18:17 Surgical History history incision and drainage perianal abscess (~10/05/20) History of cholecystectomy History of gastric surgery Status post laparoscopic Lazaro fundoplication Social History household members: spouse and children Smoking Status: Former smoker quit date: 10/12/11 pack-years: 2 Tobacco: How many years used: 20 alcohol intake: never substance use type: does not use ROS ROS ED ROS Narrative Constitutional: Endorses fever chills, body aches HEENT: Denies sore throat Neck: Denies neck pain Cardiovascular: Denies chest pain, syncope Respiratory: Denies shortness of breath GI: Denies nausea vomiting or abdominal pain : Denies changes in urinary habits Musculoskeletal: Denies muscle or joint pain Neurologic: Denies numbness weakness or loss of sensation Skin denies rash EXAM Physical Exam Narrative Exam Narrative: Nursing triage notes reviewed, Vital signs reviewed Constitutional: please see mdm HENT: MMM Eyes: Pupils equal round and reactive to light, Extraocular muscles intact Neck: No stridor, no JVD, full neck ROM Lungs: Clear to auscultation, No wheezing or rales. No increased work of breathing, no conversational dyspnea, no accessory muscle use, no nasal flaring. No respiratory distress noted Heart: Regular rate and rhythm, No murmurs, No rubs and No gallops, 2+ distal pulses (radial, femoral, posterior tibial) in all extremities Abdomen: Soft, there is no tenderness, rigidity, rebound or guarding, no obvious peritoneal signs, no palpable pulsatile abdominal masses, no auscultated abdominal bruit : No CVAT Extremities: No edema, compartments are soft Neuro: No focal neurological deficits, cranial nerves II through XII intact, 5/5 strength in all extremities. Intact sensation to light touch in all extremities, 2+ reflexes bilateral patella dens. Normal gait. No ataxia. Skin: Confluent area of erythema noted to left inner thigh, no crepitus or bullae, no perineal involvement Const Vital Signs: 01/24/23 18:15 01/24/23 19:12 01/24/23 19:23 Temperature 99.7 F H Temperature Source Temporal Pulse Rate 106 H Respiratory Rate 18 Respiratory Pattern Tachypnea Blood Pressure 167/52 H Blood Pressure Mean 90 Pulse Ox 100 Oxygen Delivery Method Room Air Room Air 01/24/23 19:30 01/24/23 21:00 01/24/23 21:15 Temperature Temperature Source Pulse Rate 106 H 106 H Respiratory Rate 19 H 17 Respiratory Pattern Blood Pressure 119/31 L 121/64 H 119/21 L Blood Pressure Mean 49 77 44 Pulse Ox 93 94 Oxygen Delivery Method 01/24/23 21:50 01/24/23 22:30 01/24/23 23:30 Temperature Temperature Source Pulse Rate 103 H 105 H 104 H Respiratory Rate 17 22 H 21 H Respiratory Pattern Blood Pressure 103/45 L 141/78 H 107/39 L Blood Pressure Mean 62 97 59 Pulse Ox 93 95 93 Oxygen Delivery Method MDM MDM MDM Narrative Medical decision making narrative: Chief Complaint: Fever chills External records reviewed: Ejection fraction 70% from echocardiogram in 2019 I considered the following differential diagnosis: Patient was initially tachycardic otherwise hemodynamically stable afebrile and nontoxic-appearing. Exam concerning for cellulitis otherwise no focus of infection. He was treated initially with fluids and Toradol for inflammation control. His initial lactate was elevated concerning for sepsis however his CBC did not show evidence of leukocytosis suggesting some inflammation. He was given additional liters of fluid and given Unasyn IV. Patient was reassessed repeat lactate was downtrending. Remainder of his labs were unremarkable. I suspect the patient's presentation is likely secondary to cellulitis. He is relatively high risk with diabetes. I offered the patient admission however patient through shared decision making decided to be discharged home with oral antibiotics as he felt much better. I discussed risk of elevated lactate. Risk and benefits were understood by patient and significant other. I believe this is appropriate at least try an outpatient course of therapy and to discuss strict return precautions and follow-up instructions. He was discharged on Bactrim and Keflex. He was given oxycodone for pain control at home Factors affecting care: History of hypertension, liver cirrhosis, Social determinants of health: Former smoker History obtained from others: Shared decision making: I will have a discussion with the patient and or visitors regarding risk/benefits of further testing or admission. They will be made aware of of the risk/benefits inherent in this decision they will be given the opportunity to voice understanding. Consults: None Lab Data Attestation: I reviewed the patient's lab results. Lab results narrative: CBC without leukocytosis suggestive of systemic inflammation, severe anemia, baseline thrombocytopenia UA without evidence of UTI BMP without evidence of significant electrolyte abnormalities, no anion gap to suggest endorgan hypoperfusion, no acute kidney injury. LFTs show no evidence of significant hepatobiliary pathology, noted elevated total bilirubin however this is downtrending from prior study on 09/14/2022. Troponin is negative, no evidence of myocardial ischemia Initial lactate elevated concerning for endorgan hypoperfusion. Will give additional fluids and repeat lactate to ensure it is downtrending. Repeat lactate is downtrending which is reassuring COVID flu negative Labs: Laboratory Results - last 24 hr 01/24/23 01/24/23 01/24/23 19:00 19:00 19:00 WBC 2.2 L RBC 3.00 L Hgb 8.7 L Hct 28.0 L MCV 93.3 MCH 29.0 MCHC 31.1 L RDW Std Deviation 51.1 H RDW Coeff of Ramya 15.2 H Plt Count 46 L* MPV 12.1 H Immature Gran % (Auto) 0.000 Neut % (Auto) 75.4 H Lymph % (Auto) 10.7 L [place] % (Auto) 11.6 H Eos % (Auto) 2.3 Baso % (Auto) 0.0 Absolute Neuts (auto) 1.6 L Absolute Lymphs (auto) 0.23 L Nucleated RBC % 0 Differential Comment SCANNED Diff Path Review May foll Sodium 139 Potassium 4.1 Chloride 111 H Carbon Dioxide 25.0 Anion Gap 3 L BUN 7 Creatinine 1.04 Estim Creat Clear Calc 103.82 Est GFR (MDRD) Af Amer 98 Est GFR (MDRD) Non-Af 81 BUN/Creatinine Ratio 6.7 L Glucose 201 H Lactic Acid 3.1 H* Calcium 8.8 Total Bilirubin 1.60 H AST 38 H ALT 26 Alkaline Phosphatase 105 Troponin I High Sens 28 Total Protein 6.3 L Albumin 2.7 L Globulin 3.6 Albumin/Globulin Ratio 0.8 L Urine Color Urine Clarity Urine pH Ur Specific Pinch Urine Protein Urine Glucose (UA) Urine Ketones Urine Occult Blood Urine Nitrite Urine Bilirubin Urine Urobilinogen Ur Leukocyte Esterase Urine RBC Urine WBC Ur Squamous Epith Cells Urine Bacteria Urine Mucus 01/24/23 01/24/23 19:05 23:10 WBC RBC Hgb Hct MCV MCH MCHC RDW Std Deviation RDW Coeff of Ramya Plt Count MPV Immature Gran % (Auto) Neut % (Auto) Lymph % (Auto) [place] % (Auto) Eos % (Auto) Baso % (Auto) Absolute Neuts (auto) Absolute Lymphs (auto) Nucleated RBC % Differential Comment Diff Path Review Sodium Potassium Chloride Carbon Dioxide Anion Gap BUN Creatinine Estim Creat Clear Calc Est GFR (MDRD) Af Amer Est GFR (MDRD) Non-Af BUN/Creatinine Ratio Glucose Lactic Acid 2.6 H* Calcium Total Bilirubin AST ALT Alkaline Phosphatase Troponin I High Sens Total Protein Albumin Globulin Albumin/Globulin Ratio Urine Color Yellow Urine Clarity Clear Urine pH 6.0 Ur Specific Pinch 1.020 Urine Protein 15 H Urine Glucose (UA) 100 H Urine Ketones Negative Urine Occult Blood 250 H Urine Nitrite Negative Urine Bilirubin Negative Urine Urobilinogen 4 H Ur Leukocyte Esterase Negative Urine RBC 0-5 SEEN Urine WBC 0-5 SEEN Ur Squamous Epith Cells 0 SEEN Urine Bacteria RARE Urine Mucus 0 SEEN Radiography Chest X-Ray - ED: Read by ED Physician Diagnostic Testing: Clinical Impression(s) from Imaging Studies Chest X-Ray 01/24/23 19:26 IMPRESSION: Normal x-ray examination of the chest. Electronically Signed: Anibal Silva MD at 19:49 EDT , I have personally reviewed the patient's chest x-ray. Chest x-ray is unremarkable for pulmonary edema, pneumothorax, pneumonia or focal cardiopulmonary abnormality. Discharge Plan Triage Chief Complaint: General Illness ED Provider: Aaron Rodriguez Dx/Rx/DC Orders Clinical Impression: Thrombocytopenia, Cellulitis, Sepsis Instructions: Cellulitis Dc Prescriptions: New sulfamethoxazole-trimethoprim [Bactrim DS] 800-160 mg tablet 1 tab PO BID 7 Days Qty: 14 0RF cephalexin 500 mg capsule 500 mg PO Q6 7 Days Qty: 28 0RF oxycodone 5 mg capsule 5 mg PO Q6H PRN (Reason: pain) 2 Days Qty: 8 0RF No Action gabapentin 300 MG capsule 300 mg PO BID Rx Instructions: take 300 mg BID lisinopril 10 mg tablet 40 mg PO DAILY Label Comments: Take 1 tablet by mouth once daily. tamsulosin 0.4 mg capsule 0.4 mg PO QHS sildenafil 50 mg tablet 50 mg PO X1 PRN (Reason: Erectile Dysfunction) Label Comments: Take 1 tab. by mouth once daily as needed 1 hour before sexual activity; may take up to 4 hours before sexual activity. lamotrigine 25 mg tablet 100 mg PO QHS Label Comments: take 1 tablet by mouth every evening for 7 days then 2 tablets by... (REFER TO PRESCRIPTION NOTES). quetiapine 50 mg tablet 50 mg PO QHS Label Comments: take 1 tablet by mouth at bedtime omeprazole 40 mg capsule,delayed release(DR/EC) 40 mg PO DAILY Label Comments: Take 1 capsule by mouth once daily. dextroamphetamine-amphetamine 15 mg Tablet 15 mg PO BID ondansetron 4 mg tablet,disintegrating 4 mg PO Q8H PRN (Reason: nausea and vomiting) Qty: 10 0RF metformin 850 MG tablet 1,000 mg PO QHS duloxetine 30 mg capsule,delayed release(DR/EC) 30 mg PO PRN (Reason: muscle cramps) Primary Care Provider: Omari Box Referrals: Omari Box MD [Primary Care Provider] - Activity Restrictions/Additional Instructions: Thank you for trusting us with your care today! Please take all antibiotics until course complete. Please return if you cannot tolerate antibiotics by mouth or if her symptoms change or worsen in any way Please take Tylenol (2 pills, 650 mg), ibuprofen (2 pills, 400 mg) every 6 hours as needed for pain and fever control. Please return to the emergency department if your symptoms change or worsen. Please follow with your primary care physician for further outpatient evaluation and management. Disposition Disposition: Home, Self Care
--- NOTE | 2023-01-24 18:41 | EKG12_ITS ---
Test Reason : DYSRHYTHMIA Blood Pressure : / mmHG Vent. Rate : 102 BPM Atrial Rate : 102 BPM P-R Int : 150 ms QRS Dur : 094 ms QT Int : 362 ms P-R-T Axes : 066 025 061 degrees QTc Int : 471 ms Sinus tachycardia Otherwise normal ECG Confirmed by LIUDMILA NUNEZ ([id number]), newspaper editor LEICIA BARBA ([id number]) on 01/27/2023 7:03:49 AM Referred By: REDD Confirmed By:LIUDMILA NUNEZ
[2023-01-24] MEDS: 0.9% Normal Saline 1,000 ML 999 ML IV ×2 (19:06→23:06)
[2023-01-24] MEDS: Ketorolac 15 MG/ML Vial IV (19:06)
[2023-01-24 19:08] LABS: Absolute Lymphocyte Count 0.23 X10^3/uL (0.83-4.51); Absolute Neutrophil Count 1.6 X10^3/uL (2.0-7.7); Eosinophil# 0.05 X10^3/uL; Eosinophils% 2.3 % (0-5); Hemoglobin 8.7 g/dL (13.0-16.5); Lymphocyte # 0.23 X10^3/ul (0.83-4.51); Lymphocyte % 10.7 % (19-41); Mean Corp Hgb Conc 31.1 g/dL (32-36); Mean Corpuscular Volume 93.3 fL (80-94); Mean Platelet Vol. 12.1 fl (6.2-12.0); Monocyte# 0.25 X10^3/uL; Monocyte% 11.6 % (0-10); NRBC Flagged by Analyzer 0 % (0-5); Neutrophil # 1.62 X10^3/uL (2.7-7.7); Neutrophil % 75.4 % (47-70); POSITIVE COUNT YES; POSITIVE DIFFERENTIAL YES; RBC Distribution Width CV 15.2 % (11.6-14.6); RBC Distribution Width SD 51.1 fl (35.1-43.9); White Blood Count 2.2 K/mm3 (4.4-11.0)
[2023-01-24 19:13] LABS: Mucous, Urine 0 SEEN /hpf (<or=2+); Squamous Epithelial Cells - UA 0 SEEN /hpf (0-5)
[2023-01-24 19:14] LABS: Differential Indicated SCAN CRITERIA MET
[2023-01-24 19:15] LABS: Platelet Count 46 K/mm3 (150-450)
[2023-01-24 19:15] LABS: Color, Urine Yellow (Yellow); Glucose, Dipstick 100 mg/dl (Normal); Ketone-Dipstick Negative (Negative); Leukocyte Esterase-Dipstick Negative /ul (Negative); Nitrite-Dipstick Negative (Negative); Occult Blood-Urine 250 /ul (Negative); Protein-Dipstick 15 mg/dl (Negative); Urine Bilirubin Dipstick Negative (Negative); Urine Clarity Clear (Clear); Urine Urobilinogen 4 mg/dl (Normal)
[2023-01-24 19:21] LABS: Bacteria RARE /hpf (None Seen); Red Blood Cells-Urine 0-5 SEEN /hpf (0-5); White Blood Cells 0-5 SEEN /hpf (0-5)
[2023-01-24 19:25] LABS: ALB/GLOB Ratio 0.8 RATIO (0.9-2.4); AST(SGOT) 38 U/L (15-37); Alanine Aminotransfer ALT/SGPT 26 U/L (16-61); Albumin, Serum 2.7 g/dL (3.2-5.0); Alkaline Phosphatase 105 U/L (45-117); Anion Gap 3 (5-15); BUN 7 mg/dL (7-18); BUN/Creat Ratio 6.7 RATIO (10-20); Calcium,Total 8.8 mg/dL (8.5-10.1); Chloride 111 mmol/L (98-107); Creatinine, Serum 1.04 mg/dL (0.70-1.30); EST Glomerular Filtration Rate 81 mL/min (>60); Est Glom Filt Rate - Afr Amer 98 mL/min (>60); Estimated Creatinine Clearance 103.82 ml/min; Globulin 3.6 g/dL (2.2-4.2); Glucose 201 mg/dL (74-106); Potassium 4.1 mmol/L (3.5-5.1); Protein, Total 6.3 g/dL (6.4-8.2); Sodium Level 139 mmol/L (136-145); Troponin-I HS 28 pg/mL (3.0-78.0)
--- NOTE | 2023-01-24 19:26 | RAD_ITS ---
STUDY: X-RAY CHEST REASON FOR EXAM: Male, 47 years old. fever, chills TECHNIQUE: PA and lateral views of the chest. COMPARISON: 12/25/2021 FINDINGS: The lungs are clear and expanded. There is no demonstrated pleural abnormality. Normal size heart. Normal mediastinum and akil. Normal visualized pulmonary arteries. Normal visualized aortic arch and descending thoracic aorta. Normal visualized thoracic spine. Normal visualized ribs, clavicles, and shoulders. There is no demonstrated abnormality of the visualized soft tissue structures of the upper abdomen. RAD/Chest PA and Lateral IMPRESSION: Normal x-ray examination of the chest. Electronically Signed: Anibal Silva MD at 19:49 EDT ,
[2023-01-24 19:44] LABS: Lactic Acid 3.1 mmol/L (0.4-1.9)
[2023-01-24 19:49] LABS: Differential Comment SCANNED
[2023-01-24] MEDS: Ondansetron 4 MG/2 ML Vial IV (20:56)
[2023-01-24] MEDS: Morphine 4 MG/ML Syringe IV ×2 (21:46→23:05)
[2023-01-24 23:02] LABS: Reflex Lactate? Y
[2023-01-25 00:06] LABS: Lactic Acid 2.6 mmol/L (0.4-1.9)
[2023-01-25 00:38] VITALS: BP 138/60; PULSE 105; RESP 18; O2SAT 95
[2023-01-27 12:47] LABS: Pathologist Review Reviewed
== END 2023-01-25 00:39 | disposition home or self-care (01) ==
PROVIDERS: Emergency Provider Emergency Medicine; PCP Internal Medicine; Visit Provider Emergency Medicine
DX: A41.9 Sepsis, unspecified organism (principal); D69.6 Thrombocytopenia, unspecified; E11.9 Type 2 diabetes mellitus without complications; I10 Essential (primary) hypertension; L03.90 Cellulitis, unspecified; Z87.891 Personal history of nicotine dependence; R11.0 Nausea
CPT/HCPCS: 71046; 80053; 81001; 83605; 84484; 85025; 87040; 87086; 87428; 93005; 99284; J0295; J2405

== ENCOUNTER 2023-05-14 15:30 | Emergency (ER) | payer OTHER, SELFPAY ==
[2023-05-14 15:31] VITALS: BP 147/52; PULSE 107; RESP 18; TEMP 36.6; O2SAT 96
--- NOTE | 2023-05-14 15:41 | RAD_ITS ---
STUDY: XR Knee Complete 4 Views or More 05/14/2023 4:47 PM REASON FOR EXAM: Male, 48 years old. pain TECHNIQUE: XR Knee 4 Views LEFT COMPARISON: None FINDINGS: Normal visualized distal femur. Normal visualized proximal tibia and fibula. Normal proximal tibiofibular articulation. There is mild degenerative arthrosis of the medial femorotibial compartment. Normal lateral femorotibial compartment. There is mild degenerative arthrosis of the patellofemoral articulation. There is a soft tissue prominence in the suprapatellar region suggesting a small volume joint effusion. The soft tissue structures are unremarkable. RAD/Knee 4 or More Views IMPRESSION: Degenerative arthrosis. There is a soft tissue prominence in the suprapatellar region suggesting a small volume joint effusion. Electronically Signed: Sj Goddard MD at 16:49 EDT ,
[2023-05-14 15:56] VITALS: BMI 43.2
--- NOTE | 2023-05-14 16:05 | EDS_ITS ---
<Statement entered by Milly Grady MD - 05/14/23 23:33> I have personally performed a face to face assessment of the patient and have reviewed the BRAVO Note. Patient presents with left knee pain. He states he was walking and felt a popping sensation in his left knee. He did not hyperextend his knee or rolled his ankle. He does have a history of a meniscal injury and had an injection in this knee in the past. Patient sitting upright in bed. He appears uncomfortable but he is in no acute distress. Head and neck examination unremarkable. Heart is regular rate and rhythm. Lung sounds are clear. Left lower extremity examination reveals mild tenderness diffusely around the knee. No significant edema is noted at this time. Strong distal pulses. Left knee x-rays per my interpretation reveal no evidence of acute bony injury. Chronic changes noted. Radiology interpretation reviewed. Patient placed in Girma wrap and given crutches. He may weight-bear as tolerated. Analgesics provided and he will follow-up with orthopedics. HPI History of Present Illness Chief Complaint: Lower Extremity Injury Narrative
--- NOTE | 2023-05-14 16:05 | EX.ED.DYSGE1 ---
HPI History of Present Illness Chief Complaint: Lower Extremity Injury Narrative Narrative: Patient presenting today due to pain to his left knee that he has had since this afternoon. He reports that while he was walking, he felt a pop in his left knee and had immediate pain. He reports that this has happened before but not this severe. He does have a history of meniscal injury to his left knee that did not require surgery but he did have gel injection. He denies any other injury. 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 Lumbar disc disease with radiculopathy Lumbar disc prolapse with compression radiculopathy Malnutrition Morbid obesity due to excess calories Other intervertebral disc degeneration, lumbar region Perianal abscess Sleep apnea Spinal stenosis of lumbar region with neurogenic claudication Thrombocytopenia Ulcer of left ankle Ulcer of right lower extremity with fat layer exposed Vein disorder Venous insufficiency Home Medications gabapentin 300 mg capsule 300 mg PO BID neuropathy 02/11/19 [History Last Taken 12/25/21] lisinopril 10 mg tablet 40 mg PO DAILY blood pressure 04/05/21 [History Last Taken 12/25/21] tamsulosin 0.4 mg capsule 0.4 mg PO QHS prostate 04/05/21 [History Last Taken 12/24/21] dextroamphetamine-amphetamine 15 mg tablet 15 mg PO BID 12/25/21 [History Last Taken 12/25/21] lamotrigine 25 mg tablet 100 mg PO QHS seizures 12/25/21 [History Last Taken 12/25/21] omeprazole 40 mg capsule,delayed release 40 mg PO DAILY GERD 12/25/21 [History Last Taken 12/25/21] quetiapine 50 mg tablet 50 mg PO QHS mental health 12/25/21 [History Last Taken 12/24/21] sildenafil 50 mg tablet 50 mg PO X1 PRN Erectile Dysfunction 12/25/21 [History Last Taken Unknown] ondansetron 4 mg disintegrating tablet 4 mg PO Q8H PRN nausea and vomiting #10 tabs 04/25/22 [Rx Last Taken Unknown] metformin 850 mg tablet 1,000 mg PO QHS 09/14/22 [History Last Taken Unknown] duloxetine 30 mg capsule,delayed release 30 mg PO PRN muscle cramps 01/24/23 [History Last Taken Unknown] cephalexin 500 mg capsule 500 mg PO Q6 7 days #28 CAPSULES 01/25/23 [Rx Last Taken Unknown] oxycodone 5 mg capsule 5 mg PO Q6H PRN pain 2 days #8 caps 01/25/23 [Rx Last Taken Unknown] sulfamethoxazole 800 mg-trimethoprim 160 mg tablet (Bactrim DS) 1 tab PO BID 7 days #14 tabs 01/25/23 [Rx Last Taken Unknown] hydrocodone-acetaminophen 5-325mg 5mg-325mg 1 tab PO Q4H PRN PRN Pain 3 days #10 TABLETS 05/14/23 [Rx Last Taken Unknown] Allergy/AdvReac Type Severity Reaction Status Date / Time No Known Allergies Allergy Verified 05/14/23 15:30 Surgical History history incision and drainage perianal abscess (~10/05/20) History of cholecystectomy History of gastric surgery Status post laparoscopic Lazaro fundoplication Social History household members: spouse and children Smoking Status: Former smoker quit date: 10/12/11 pack-years: 2 Tobacco: How many years used: 20 alcohol intake: never substance use type: does not use ROS ROS ED Constitutional Constitutional ED: Denies chills or fever(s) Cardiovascular Cardiovascular: Denies chest pain Respiratory/Chest Respiratory/Chest: Denies cough or dyspnea Gastrointestinal Gastrointestinal: Denies abdominal pain, nausea or vomiting Genitourinary Genitourinary ED: Denies dysuria, hematuria or urinary frequency Musculoskeletal Musculoskeletal: Reports arthralgias; Denies myalgias Integumentary Denies abscess, Abrasions or rash Neurologic Neurologic: Denies paresthesias or weakness Allergic/Immunologic Allergic/Immunologic ED: Denies mouth swelling EXAM Physical Exam Const Vital Signs: 05/14/23 15:31 Temperature 98 F Temperature Source Temporal Pulse Rate 107 H Respiratory Rate 18 Blood Pressure 147/52 H Blood Pressure Mean 83 Pulse Ox 96 Oxygen Delivery Method Room Air Positive well nourished, well developed and no apparent distress General Appearance ED: well developed HEENT Reports normocephalic and head/scalp atraumatic Mouth ED: Yes moist mucous membranes normal Eyes PERRL and EOMs intact bilaterally Neck full ROM and supple Chest Wall inspection of chest normal Resp normal respiratory effort and clear to auscultation bilaterally Cardio regular rate and regular rhythm GI soft to palpation, non-tender, non-distended and no masses Back/Spine normal ROM and normal to inspection Extremity normal to inspection Extremity Narrative: Limited range of motion to the left knee due to pain, pain with valgus stress and pain to the medial inferior aspect of the left knee. DP pulses 2+ and equal bilaterally, good capillary refill, sensation intact. No edema or erythema to the knee. Neuro oriented x3, CN's II-XII intact bilaterally, moves all extremities, no focal motor deficits and no sensory deficits noted Sensorium / Orientation: awake and alert Psych mental status grossly normal and thought process normal Skin no rashes or lesions noted and no wounds MDM MDM MDM Narrative Medical decision making narrative: Patient presenting today with pain to his left knee that started this afternoon while he was walking and he heard a pop. He reports that this has happened before and he does have a prior meniscal injury to his left knee that required gel injection. He did not require surgery on his knee. He does not currently have an orthopedic provider. He does appear to be uncomfortable and is unable to bear weight onto his left knee. He does have pain into the medial aspect of his knee and pain with valgus stress. He will be given crutches, x-ray obtained to rule out fracture and shows soft tissue prominence in the suprapatellar region suggestive of a small joint effusion. There is no obvious edema to the knee, no erythema to suggest infection or septic joint. He was given pain control here and will be given a short course of [place] for home. He has been given orthopedic follow-up and RICE instructions. He will be discharged home in stable condition and is comfortable with plan. Radiography X-Ray: Read by ED Physician and Read by Radiologist Diagnostic Testing: Clinical Impression(s) from Imaging Studies Knee X-Ray 05/14/23 15:41 IMPRESSION: Degenerative arthrosis. There is a soft tissue prominence in the suprapatellar region suggesting a small volume joint effusion. Electronically Signed: Sj Goddard MD at 16:49 EDT , Discharge Plan Triage Chief Complaint: Lower Extremity Injury ED Midlevel Provider: Muriel Mcgarry ED Provider: Milly Grady Dx/Rx/DC Orders Clinical Impression: Knee pain, left Instructions: Knee Pain Prescriptions: New hydrocodone-acetaminophen 5-325 mg tablet 1 tab PO Q4H PRN PRN (Reason: Pain) 3 Days Qty: 10 0RF No Action gabapentin 300 MG capsule 300 mg PO BID Rx Instructions: take 300 mg BID lisinopril 10 mg tablet 40 mg PO DAILY Patient Comments: Take 1 tablet by mouth once daily. tamsulosin 0.4 mg capsule 0.4 mg PO QHS sildenafil 50 mg tablet 50 mg PO X1 PRN (Reason: Erectile Dysfunction) Patient Comments: Take 1 tab. by mouth once daily as needed 1 hour before sexual activity; may take up to 4 hours before sexual activity. lamotrigine 25 mg tablet 100 mg PO QHS Patient Comments: take 1 tablet by mouth every evening for 7 days then 2 tablets by... (REFER TO PRESCRIPTION NOTES). quetiapine 50 mg tablet 50 mg PO QHS Patient Comments: take 1 tablet by mouth at bedtime omeprazole 40 mg capsule,delayed release(DR/EC) 40 mg PO DAILY Patient Comments: Take 1 capsule by mouth once daily. dextroamphetamine-amphetamine 15 mg Tablet 15 mg PO BID ondansetron 4 mg tablet,disintegrating 4 mg PO Q8H PRN (Reason: nausea and vomiting) Qty: 10 0RF metformin 850 MG tablet 1,000 mg PO QHS duloxetine 30 mg capsule,delayed release(DR/EC) 30 mg PO PRN (Reason: muscle cramps) sulfamethoxazole-trimethoprim [Bactrim DS] 800-160 mg tablet 1 tab PO BID 7 Days Qty: 14 0RF cephalexin 500 mg capsule 500 mg PO Q6 7 Days Qty: 28 0RF oxycodone 5 mg capsule 5 mg PO Q6H PRN (Reason: pain) 2 Days Qty: 8 0RF Primary Care Provider: Omari Box Referrals: Kilo Lyn MD [Med Staff - Active Staff] - 3-5 Days Omari Box MD [Primary Care Provider] - Activity Restrictions/Additional Instructions: please follow-up with orthopedics, keep knee elevated, ice it several times a day for the next few days. Disposition Disposition: Home, Self Care Discharge Date/Time: 05/14/23 17:33
[2023-05-14] MEDS: HYDROcodone Bitartrate/Apap 5/325 Tablet PO (16:36)
== END 2023-05-14 17:33 | disposition home or self-care (01) ==
PROVIDERS: Emergency Provider Emergency Medicine; PCP Internal Medicine; Visit Provider Emergency Medicine
DX: M25.562 Pain in left knee (principal); E11.9 Type 2 diabetes mellitus without complications; F32.A Depression, unspecified; Z79.899 Other long term (current) drug therapy; Z79.84 Long term (current) use of oral hypoglycemic drugs; Z90.49 Acquired absence of other specified parts of digestive tract; Z87.891 Personal history of nicotine dependence; X58.XXXA Exposure to other specified factors, initial encounter; Y93.01 Activity, walking, marching and hiking
CPT/HCPCS: 73564; 99282

== ENCOUNTER 2023-06-02 14:42 | Inpatient (IN) | payer OTHER, SELFPAY ==
[2023-06-02] VITALS (9 sets, daily range): BP systolic 106–147; BP diastolic 44–92; PULSE 72–100; RESP 16–20; TEMP 35.5–37.1; O2SAT 94–98; BMI 42.0; BMI 42.2
--- NOTE | 2023-06-02 15:32 | EX.ED.DYSGE1 ---
HPI History of Present Illness Chief Complaint: Cellulitis Narrative Narrative: Patient presents with right leg pain and redness that started when he woke up this morning just a few hours ago his redness was just below the knee and now its more than penitentiary up his thigh. He has a history of cellulitis due to venous insufficiency, he also has a history of sepsis with this. He noticed a temperature 102 at home. He has no inguinal pain. 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 Lumbar disc disease with radiculopathy Lumbar disc prolapse with compression radiculopathy Malnutrition Morbid obesity due to excess calories Other intervertebral disc degeneration, lumbar region Perianal abscess Sleep apnea Spinal stenosis of lumbar region with neurogenic claudication Thrombocytopenia Ulcer of left ankle Ulcer of right lower extremity with fat layer exposed Vein disorder Venous insufficiency Home Medications gabapentin 300 mg capsule 300 mg PO BID NERVE PAIN 02/11/19 [History Last Taken 06/02/23] tamsulosin 0.4 mg capsule 0.4 mg PO QHS PROSTATE 04/05/21 [History Last Taken 06/01/23] dextroamphetamine-amphetamine 15 mg tablet 15 mg PO BID ADHD 12/25/21 [History Last Taken 06/02/23] lamotrigine 25 mg tablet 100 mg PO QHS DEPRESSION 12/25/21 [History Last Taken 06/01/23] omeprazole 40 mg capsule,delayed release 40 mg PO DAILY GERD 12/25/21 [History Last Taken 06/02/23] quetiapine 50 mg tablet 50 mg PO QHS MOOD 12/25/21 [History Last Taken 06/01/23] sildenafil 50 mg tablet 50 mg PO X1 PRN Erectile Dysfunction 12/25/21 [History Last Taken Unknown] ibuprofen 800 mg tablet 800 mg PO Q8H PRN FEVER/PAIN 06/02/23 [History Last Taken Unknown] lisinopril 40 mg tablet 40 mg PO DAILY BLOOD PRESSURE 06/02/23 [History Last Taken 06/02/23] metformin 1,000 mg tablet 1,000 mg PO BID DIABETES 06/02/23 [History Last Taken 06/02/23] promethazine 25 mg tablet 25 mg PO Q8H PRN NAUSEA/VOMITING 06/02/23 [History Last Taken Unknown] tizanidine 4 mg tablet 4 mg PO Q8H PRN MUSCLE SPASMS 06/02/23 [History Last Taken Unknown] Allergy/AdvReac Type Severity Reaction Status Date / Time No Known Allergies Allergy Verified 06/02/23 14:44 Surgical History history incision and drainage perianal abscess (~10/05/20) History of cholecystectomy History of gastric surgery Status post laparoscopic Lazaro fundoplication Social History household members: spouse and children Smoking Status: Former smoker quit date: 10/12/11 pack-years: 2 Tobacco: How many years used: 20 alcohol intake: never substance use type: does not use ROS ROS ED ROS Narrative Past medical history: Reviewed Medications: Reviewed Social history: Noncontributory Review of systems: All systems negative except as indicated General: Fever of 102 Eyes: No visual changes ENT: No upper airway congestion, normal voice Neck: No neck pain Cardiovascular: No chest pain Respiratory: No shortness of breath or cough Gastrointestinal: No abdominal pain, nausea vomiting or diarrhea Genitourinary: No dysuria Musculoskeletal: Right lower extremity cellulitis as in HPI Skin: As above Neurological: No memory loss, confusion or any focal weakness EXAM Physical Exam Narrative Exam Narrative: Physical exam General: Well nourished, Well developed, No Acute Distress Head: Normocephalic, Atraumatic ENT: Moist mucous membranes Neck: Supple, Nontender, No lymphadenopathy Cardiovascular: Regular rate, Regular rhythm Respiratory: No distress, CTA bilaterally Abdomen: Soft, Nontender, Nondistended Back: Nontender, Normal Inspection. Negative for: CVA tenderness Extremities: Right lower extremity erythema, a couple of old wounds around the ankle, the erythema and calor consistent with cellulitis are all the way just past the penitentiary up the thigh. It is circumferential. No streaking and no inguinal lymphadenopathy. No crepitus or signs of neck Fash Skin: As above no other rash Neurological: Alert, Normal Strength, Normal Sensation Const Vital Signs: 06/02/23 14:42 06/02/23 14:44 06/02/23 15:44 Temperature 96 F L 98.6 F 98.5 F Temperature Source Temporal Temporal Temporal Pulse Rate 100 72 95 Respiratory Rate 20 H 18 16 Blood Pressure 143/59 H 112/44 L 119/61 Blood Pressure Mean 87 66 80 Pulse Ox 95 94 96 Oxygen Delivery Method Room Air Room Air Room Air 06/02/23 16:00 Temperature 98.7 F Temperature Source Temporal Pulse Rate 93 Respiratory Rate 18 Blood Pressure 106/80 Blood Pressure Mean 88 Pulse Ox 95 Oxygen Delivery Method Room Air MDM MDM MDM Narrative Medical decision making narrative: Patient does not have leukocytosis, however he has significant cellulitis and he has a history of sepsis and aggressive cellulitis, again he had fever at home and his cellulitis is rapidly progressing therefore I believe he needs to be admitted. I have ruled out sepsis. I have ruled out any kind of abscess clinically, there is no signs of necrotizing fasciitis. Patient has clear cellulitis I do not believe he has a DVT therefore DVT scan was not done. I do not believe the patient needs an x-ray of his leg. I will admit him to the hospital for IV antibiotics and observation Lab Data Labs: Laboratory Results - last 24 hr 06/02/23 15:40 WBC 5.2 RBC 3.37 L Hgb 9.5 L Hct 29.6 L MCV 87.8 MCH 28.2 MCHC 32.1 RDW Std Deviation 55.3 H RDW Coeff of Ramya 17.6 H Plt Count 59 L MPV 12.2 H Immature Gran % (Auto) 0.400 Neut % (Auto) 71.4 H Lymph % (Auto) 13.4 L Kerr % (Auto) 11.7 H Eos % (Auto) 2.7 Baso % (Auto) 0.4 Absolute Neuts (auto) 3.7 Absolute Lymphs (auto) 0.70 L Nucleated RBC % 0 Sodium 137 Potassium 3.7 Chloride 107 Carbon Dioxide 27.0 Anion Gap 3 L BUN 10 Creatinine 0.85 Estim Creat Clear Calc 125.65 Est GFR (MDRD) Af Amer 123 Est GFR (MDRD) Non-Af 101 BUN/Creatinine Ratio 11.7 Glucose 128 H Lactic Acid 1.9 Calcium 8.4 L Total Bilirubin 3.80 H AST 31 ALT 22 Alkaline Phosphatase 87 Total Protein 6.5 Albumin 2.8 L Globulin 3.7 Albumin/Globulin Ratio 0.8 L Discharge Plan Triage Chief Complaint: Cellulitis ED Provider: Warren Brewster Dx/Rx/DC Orders Clinical Impression: Cellulitis, Morbid obesity due to excess calories, Fever Prescriptions: No Action gabapentin 300 MG capsule 300 mg PO BID Rx Instructions: take 300 mg BID tamsulosin 0.4 mg capsule 0.4 mg PO QHS sildenafil 50 mg tablet 50 mg PO X1 PRN (Reason: Erectile Dysfunction) Patient Comments: Take 1 tab. by mouth once daily as needed 1 hour before sexual activity; may take up to 4 hours before sexual activity. lamotrigine 25 mg tablet 100 mg PO QHS Patient Comments: take 1 tablet by mouth every evening for 7 days then 2 tablets by... (REFER TO PRESCRIPTION NOTES). quetiapine 50 mg tablet 50 mg PO QHS omeprazole 40 mg capsule,delayed release(DR/EC) 40 mg PO DAILY dextroamphetamine-amphetamine 15 mg Tablet 15 mg PO BID promethazine 25 mg tablet 25 mg PO Q8H PRN (Reason: NAUSEA/VOMITING) tizanidine 4 mg tablet 4 mg PO Q8H PRN (Reason: MUSCLE SPASMS) ibuprofen 800 mg tablet 800 mg PO Q8H PRN (Reason: FEVER/PAIN) lisinopril 40 mg tablet 40 mg PO DAILY metformin 1,000 mg tablet 1,000 mg PO BID Primary Care Provider: Omari Box Referrals: Omari Box MD [Primary Care Provider] - Disposition Disposition: Acute Care [facility]
[2023-06-02] MEDS: 0.9% Normal Saline 1,000 ML 1000 ML IV (15:59)
[2023-06-02 16:12] LABS: Lactic Acid 1.9 mmol/L (0.4-1.9)
[2023-06-02 16:21] LABS: Absolute Neutrophil Count 3.7 X10^3/uL (2.0-7.7); Basophil# 0.02 X10^3/uL; Basophil% 0.4 % (0-1); Eosinophil# 0.14 X10^3/uL; Eosinophils% 2.7 % (0-5); Hematocrit 29.6 % (40-54); Hemoglobin 9.5 g/dL (13.0-16.5); Lymphocyte % 13.4 % (19-41); Mean Corp Hgb Conc 32.1 g/dL (32-36); Mean Corpuscular Hgb 28.2 pg (27.0-32.0); Mean Corpuscular Volume 87.8 fL (80-94); Mean Platelet Vol. 12.2 fl (6.2-12.0); Monocyte# 0.61 X10^3/uL; Monocyte% 11.7 % (0-10); NRBC Flagged by Analyzer 0 % (0-5); Neutrophil # 3.74 X10^3/uL (2.7-7.7); Neutrophil % 71.4 % (47-70); POSITIVE COUNT YES; Platelet Count 59 K/mm3 (150-450); RBC Distribution Width CV 17.6 % (11.6-14.6); RBC Distribution Width SD 55.3 fl (35.1-43.9); Red Blood Count 3.37 M/mm3 (4.6-6.2); White Blood Count 5.2 K/mm3 (4.4-11.0)
[2023-06-02 16:39] LABS: ALB/GLOB Ratio 0.8 RATIO (0.9-2.4); AST(SGOT) 31 U/L (15-37); Alanine Aminotransfer ALT/SGPT 22 U/L (16-61); Albumin, Serum 2.8 g/dL (3.2-5.0); Alkaline Phosphatase 87 U/L (45-117); Anion Gap 3 (5-15); BUN 10 mg/dL (7-18); BUN/Creat Ratio 11.7 RATIO (10-20); Calcium,Total 8.4 mg/dL (8.5-10.1); Chloride 107 mmol/L (98-107); Creatinine, Serum 0.85 mg/dL (0.70-1.30); EST Glomerular Filtration Rate 101 mL/min (>60); Est Glom Filt Rate - Afr Amer 123 mL/min (>60); Estimated Creatinine Clearance 125.65 ml/min; Globulin 3.7 g/dL (2.2-4.2); Glucose 128 mg/dL (74-106); Potassium 3.7 mmol/L (3.5-5.1); Protein, Total 6.5 g/dL (6.4-8.2); Sodium Level 137 mmol/L (136-145)
[2023-06-02] MEDS: Morphine 4 MG/ML Syringe IV (16:43)
[2023-06-02] MEDS: Ondansetron 4 MG/2 ML Vial IV (16:43)
--- NOTE | 2023-06-02 17:19 | NURSING ---
MED SURG OBS ISAIAS CELLULITIS
--- NOTE | 2023-06-02 17:38 | HP.PCM.HOS_ITS ---
HPI - General General Date of Admission: 06/02/23 Date of Service: 06/02/23 Chief Complaint: High fever 102 at home and right leg swelling, redness and pain HPI Narrative LIBRADO CARLSON, is a 48 M with history of recurrent cellulitis in legs in the past came to ED for right lower extremity swelling redness and pain and high- grade fever. Patient stated that he woke up with redness in right knee and then after few hours it went up to the upper medial thigh with swelling and pain. He describes the pain localized about 4-5/10 intensity. He measured a temperature 102 Fahrenheit in ED and was feeling nauseated therefore he took Tylenol and Phenergan at home. Patient is stated that he takes Phenergan before actual vomiting/retching and dry heaving as was told by . he had ruptured esophageal vessels because of vomiting in the past. In ED, heart rate 100/min otherwise vitals in normal limit. Last BP 106/80. Labs reviewed and discussed in assessment and plan. Patient history of Dean related cirrhosis and has severe thrombocytopenia but denies any decompensation including ascites, paracentesis or encephalopathy. Total bili is elevated. Patient was given IV vancomycin and Zosyn in the ER and further admitted. 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 Lumbar disc disease with radiculopathy Lumbar disc prolapse with compression radiculopathy Malnutrition Morbid obesity due to excess calories Other intervertebral disc degeneration, lumbar region Perianal abscess Sleep apnea Spinal stenosis of lumbar region with neurogenic claudication Thrombocytopenia Ulcer of left ankle Ulcer of right lower extremity with fat layer exposed Vein disorder Venous insufficiency Home Medications gabapentin 300 mg capsule 300 mg PO BID NERVE PAIN 02/11/19 [History Last Taken 06/02/23] tamsulosin 0.4 mg capsule 0.4 mg PO QHS PROSTATE 04/05/21 [History Last Taken 06/01/23] dextroamphetamine-amphetamine 15 mg tablet 15 mg PO BID ADHD 12/25/21 [History Last Taken 06/02/23] lamotrigine 25 mg tablet 100 mg PO QHS DEPRESSION 12/25/21 [History Last Taken 06/01/23] omeprazole 40 mg capsule,delayed release 40 mg PO DAILY GERD 12/25/21 [History Last Taken 06/02/23] quetiapine 50 mg tablet 50 mg PO QHS MOOD 12/25/21 [History Last Taken 06/01/23] sildenafil 50 mg tablet 50 mg PO X1 PRN Erectile Dysfunction 12/25/21 [History Last Taken Unknown] ibuprofen 800 mg tablet 800 mg PO Q8H PRN FEVER/PAIN 06/02/23 [History Last Taken Unknown] lisinopril 40 mg tablet 40 mg PO DAILY BLOOD PRESSURE 06/02/23 [History Last Taken 06/02/23] metformin 1,000 mg tablet 1,000 mg PO BID DIABETES 06/02/23 [History Last Taken 06/02/23] promethazine 25 mg tablet 25 mg PO Q8H PRN NAUSEA/VOMITING 06/02/23 [History Last Taken Unknown] tizanidine 4 mg tablet 4 mg PO Q8H PRN MUSCLE SPASMS 06/02/23 [History Last Taken Unknown] Allergy/AdvReac Type Severity Reaction Status Date / Time No Known Allergies Allergy Verified 06/02/23 14:44 Surgical History history incision and drainage perianal abscess (~10/05/20) History of cholecystectomy History of gastric surgery Status post laparoscopic Lazaro fundoplication Social History household members: spouse and children Smoking Status: Former smoker quit date: 10/12/11 pack-years: 2 Tobacco: How many years used: 20 alcohol intake: never substance use type: does not use ROS ROS Narrative Constitutional: Reports acute fatigue and weakness. He said he felt low energy today. Fever as described in HPI. No headache HEENT: Reports systems reviewed and no addt'l complaints, except as documented Respiratory/Chest: No acute shortness of breath or respiratory distress or wheezing. CVS: No chest pain or pressure. Gastrointestinal: Denies coffee ground emesis, hematemesis or vomiting Genitourinary: Denies burning urination or new urinary tract symptoms Musculoskeletal: Chronic lower back pain/joint pain. No acute injury. Leg swelling endocrine HPI Neurologic: Denies seizure-like symptoms. skin: No ulcer. No rash Endocrinology: Reports systems reviewed and no addt'l complaints, except as documented Hematologic/Lymphatic: Thrombocytopenia. Cirrhosis. Reports systems reviewed and no addt'l complaints, except as documented Rest 14 ROS are negative except as mentioned in HPI Vital Signs Vital Signs Vital Signs: 06/02/23 14:42 06/02/23 14:44 06/02/23 15:44 Temperature 96 F L 98.6 F 98.5 F Temperature Source Temporal Temporal Temporal Pulse Rate 100 72 95 Respiratory Rate 20 H 18 16 Blood Pressure 143/59 H 112/44 L 119/61 Blood Pressure Mean 87 66 80 Pulse Ox 95 94 96 Oxygen Delivery Method Room Air Room Air Room Air 06/02/23 16:00 Temperature 98.7 F Temperature Source Temporal Pulse Rate 93 Respiratory Rate 18 Blood Pressure 106/80 Blood Pressure Mean 88 Pulse Ox 95 Oxygen Delivery Method Room Air Weight Weight: 336 lb Body Mass Index (BMI) 42.0 Results Lab / Micro Data 06/02/23 15:40 06/02/23 15:40 Labs: Laboratory Results - last 24 hr 06/02/23 15:40: WBC 5.2, RBC 3.37 L, Hgb 9.5 L, Hct 29.6 L, MCV 87.8, MCH 28.2, MCHC 32.1, RDW Std Deviation 55.3 H, RDW Coeff of Ramya 17.6 H, Plt Count 59 L, MPV 12.2 H, Immature Gran % (Auto) 0.400, Neut % (Auto) 71.4 H, Lymph % (Auto) 13.4 L, Hale % (Auto) 11.7 H, Eos % (Auto) 2.7, Baso % (Auto) 0.4, Absolute Neuts (auto) 3.7, Absolute Lymphs (auto) 0.70 L, Nucleated RBC % 0, Sodium 137, Potassium 3.7, Chloride 107, Carbon Dioxide 27.0, Anion Gap 3 L, BUN 10, Creatinine 0.85, Estim Creat Clear Calc 125.65, Est GFR (MDRD) Af Amer 123, Est GFR (MDRD) Non-Af 101, BUN/Creatinine Ratio 11.7, Glucose 128 H, Lactic Acid 1.9, Calcium 8.4 L, Total Bilirubin 3.80 H, AST 31, ALT 22, Alkaline Phosphatase 87, Total Protein 6.5, Albumin 2.8 L, Globulin 3.7, Albumin/Globulin Ratio 0.8 L Assessment & Plan Assessment/Plan (1) Cellulitis: QUALIFIERS: Site of cellulitis: extremity Site of cellulitis of extremity: lower extremity Laterality: right Qualified Code(s): L03.115 - Cellulitis of right lower limb PLAN: Plan 1. Acute on recurrent cellulitis of right upper extremity rapidly evolving: Patient is being admitted to [facility] floor. Lactic acid 1.9. Currently patient does not have signs and symptoms of sepsis. Patient does not look toxic. Lactic acid ordered. Started on IV vancomycin and Unasyn. ESR and CRP ordered. No leukocytosis but ALC 0.7 thousand. Neutrophilia and monocytosis. Venous duplex of lower extremities ordered stat. Patient has chronic venous edema of lower extremities and had one-time DVT in the past. He said he took anticoagulant for few days as he cannot take it because of history of cirrhosis and thrombocytopenia. 2. Hypertension: Currently blood pressure is in systolic 100s. Lisinopril dose decreased to 20 mg daily with holding parameters. 3. Nonalcoholic liver cirrhosis, with chronic thrombocytopenia, compensated with history of GERD: Continue PPI. Platelet count is chronically low 59,000. Total bili 3.8. Differential bilirubin ordered. Chronic hypoalbuminemia. Transaminases alkaline phos within normal limit. Patient denies drinking alcohol. 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 4. Morbid obesity, BMI 42.0 kg/m?: Weight loss counseling done. Complicates care, lifestyle modification advised 5. Type II DM, blood sugars are controlled: 6. chronic medical conditions including ADHD/anxiety/depression/degenerative disc disease of the lumbar spine: Continue gabapentin and lamotrigine. Hold Adderall as it is nonformulary 7. DVT PPx- SCDs because of severe thrombocytopenia. Thrombocytopenia CODE STATUS: Full code verified. Patient does not have advanced directive/living will. His is next to kin. Laboratory Results 06/02/23 15:40: WBC 5.2, RBC 3.37 L, Hgb 9.5 L, Hct 29.6 L, MCV 87.8, MCH 28.2, MCHC 32.1, RDW Std Deviation 55.3 H, RDW Coeff of Ramya 17.6 H, Plt Count 59 L, MPV 12.2 H, Immature Gran % (Auto) 0.400, Neut % (Auto) 71.4 H, Lymph % (Auto) 13.4 L, Hale % (Auto) 11.7 H, Eos % (Auto) 2.7, Baso % (Auto) 0.4, Absolute Neuts (auto) 3.7, Absolute Lymphs (auto) 0.70 L, Nucleated RBC % 0, Sodium 137, Potassium 3.7, Chloride 107, Carbon Dioxide 27.0, Anion Gap 3 L, BUN 10, Creatinine 0.85, Estim Creat Clear Calc 125.65, Est GFR (MDRD) Af Amer 123, Est GFR (MDRD) Non-Af 101, BUN/Creatinine Ratio 11.7, Glucose 128 H, Lactic Acid 1.9, Calcium 8.4 L, Total Bilirubin 3.80 H, AST 31, ALT 22, Alkaline Phosphatase 87, Total Protein 6.5, Albumin 2.8 L, Globulin 3.7, Albumin/Globulin Ratio 0.8 L Charges/Coding Visit Charges Inpatient E&M: 05155 Init Hosp L3
--- NOTE | 2023-06-02 17:56 | VDLE_ITS ---
Reason For Study: BLE Swelling RIGHT LEFT GSV is normal. CFV is compressible, spontaneous, phasic, CFV is compressible, spontaneous, phasic, competent, and demonstrates normal competent and demonstrates normal augmentation. augmentation. FV is compressible, spontaneous, phasic, FV is compressible, spontaneous, phasic, competent and demonstrates normal competent and demonstrates normal augmentation. augmentation. POP V is compressible, spontaneous, phasic, POP V is compressible, spontaneous, phasic, competent and demonstrates normal competent and demonstrates normal augmentation. augmentation. T/P Trunk is compressible. T/P Trunk is compressible. PTV is compressible. PTV is compressible. LT PerV is compressible. RT PerV is compressible. LT SSV and GSV below knee are non- Enlarged lymph node noted in RT groin compressible w/ bright intraluminal echoes. measuring approximately 1.97cm x 1.17cm. Consistent with HX of venous ablation. GSV Procedure above knee is compressible. This is a venous duplex using B-mode, color flow and spectral Doppler. Exam performed portable in patient room. The exam was diagnostic. A preliminary report was called and/or faxed to [facility]. VL/Venous Duplex US - Moses Extrem Interpretation Summary Deep veins of the bilateral lower extremity are patent and compressible segment ally. There is no evidence of bilateral lower extremity deep vein thrombosis. The right great sap henous vein appears patent and compressible segmentally. Left great saphenous and small saphenous veins with visualized chronic thrombus consistent with prior ablation Ordering Physician: Dariel Goel Referring Physician: Omari Box M.D. Performed By: Gavin Rangel RVT
[2023-06-02 18:16] LABS: Bilirubin, Direct 0.71 mg/dL (0.00-0.30)
[2023-06-02] MEDS: KCL 20MEQ in 0.9% NS 20 MEQ/1,000 ML IV.SOLN. 75 MEQ IV (19:10)
--- NOTE | 2023-06-02 19:47 | PCM.RX.CS ---
Consult Antibiotic Management Pharmacy has been consulted to manage selected antiobiotic: Vancomycin Type of Intervention Type of Consult: New start Suspected Infection Suspected Infection: Skin/Soft tissue Labs Labs: Sodium 137 mmol/L (136-145) 06/02/23 15:40 Potassium 3.7 mmol/L (3.5-5.1) 06/02/23 15:40 Chloride 107 mmol/L (98-107) 06/02/23 15:40 Carbon Dioxide 27.0 mmol/L (21.0-32.0) 06/02/23 15:40 Anion Gap 3 (5-15) L 06/02/23 15:40 BUN 10 mg/dL (7-18) 06/02/23 15:40 Creatinine 0.85 mg/dL (0.70-1.30) 06/02/23 15:40 Est GFR (MDRD) Af Amer 123 mL/min (>60) 06/02/23 15:40 Est GFR (MDRD) Non-Af 101 mL/min (>60) 06/02/23 15:40 BUN/Creatinine Ratio 11.7 RATIO (10-20) 06/02/23 15:40 Glucose 128 mg/dL (74-106) H 06/02/23 15:40 Dosing Weight Weight used for dosin kg Estimated Creatinine Clearance Estimated Creatinine Clearance: 177ml/min Goal Trough Goal Trough: 10-15 mcg/mL Pharmacy Plan for Drug Dosing Pharmacy Plan for Drug Dosing: NEW START IV VANCOMYCIN Consulting Physician: Dr. Goel Indication: Cellulitis Goal Trough: 10-15 SrCr: 0.85 CrCl: 177 mls/min (using an adjusted body weight of 111.9 kg) Comments: pt received a 2000mg x1 dose of Vancomycin in the ER on 06/02/23 at 1643 Vancomycin Dose: based on pts weight and renal function, recommend an initial dose of 1750mg q12h starting 06/03/23 at 0500. trough prior to the 4th total dose Pending Level: 06/04/23 at 0430 Pharmacy Service will continue to monitor and adjust dosing as required. Follow-Up Labs Follow-Up Labs: Trough: Vancomycin (06/04/23 @ 0430)
[2023-06-02] MEDS: oxyCODONE 5 MG Tablet PO (20:16)
[2023-06-02] MEDS: lamoTRIgine 100 MG Tablet PO (22:11)
[2023-06-02] MEDS: Tamsulosin HCl 0.4 MG Capsule PO (22:11)
[2023-06-02] MEDS: Gabapentin 300 MG Capsule PO (22:11)
[2023-06-02] MEDS: QUEtiapine 25 MG Tablet 50 MG PO (22:11)
[2023-06-03 03:36] VITALS: BP 128/71; PULSE 104; RESP 18; TEMP 37.3; O2SAT 97
[2023-06-03] MEDS: oxyCODONE 5 MG Tablet PO ×4 (03:46→19:55)
[2023-06-03 06:25] LABS: Absolute Lymphocyte Count 0.65 X10^3/uL (0.83-4.51); Absolute Neutrophil Count 1.9 X10^3/uL (2.0-7.7); Basophil# 0.02 X10^3/uL; Basophil% 0.6 % (0-1); Eosinophil# 0.15 X10^3/uL; Eosinophils% 4.8 % (0-5); Hematocrit 27.6 % (40-54); Hemoglobin 8.5 g/dL (13.0-16.5); Lymphocyte # 0.65 X10^3/ul (0.83-4.51); Lymphocyte % 20.9 % (19-41); Mean Corp Hgb Conc 30.8 g/dL (32-36); Mean Corpuscular Hgb 28.1 pg (27.0-32.0); Mean Corpuscular Volume 91.4 fL (80-94); Monocyte# 0.39 X10^3/uL; Monocyte% 12.5 % (0-10); NRBC Flagged by Analyzer 0 % (0-5); Neutrophil # 1.89 X10^3/uL (2.7-7.7); Neutrophil % 60.9 % (47-70); POSITIVE COUNT YES; Platelet Count 55 K/mm3 (150-450); RBC Distribution Width CV 17.5 % (11.6-14.6); RBC Distribution Width SD 58.4 fl (35.1-43.9); Red Blood Count 3.02 M/mm3 (4.6-6.2); White Blood Count 3.1 K/mm3 (4.4-11.0)
[2023-06-03 06:49] LABS: ALB/GLOB Ratio 0.7 RATIO (0.9-2.4); AST(SGOT) 31 U/L (15-37); Alanine Aminotransfer ALT/SGPT 21 U/L (16-61); Albumin, Serum 2.5 g/dL (3.2-5.0); Alkaline Phosphatase 96 U/L (45-117); Anion Gap 4 (5-15); BUN 9 mg/dL (7-18); BUN/Creat Ratio 12.1 RATIO (10-20); Calcium,Total 8.1 mg/dL (8.5-10.1); Chloride 112 mmol/L (98-107); Creatinine, Serum 0.74 mg/dL (0.70-1.30); EST Glomerular Filtration Rate 119 mL/min (>60); Est Glom Filt Rate - Afr Amer 144 mL/min (>60); Estimated Creatinine Clearance 144.32 ml/min; Globulin 3.7 g/dL (2.2-4.2); Glucose 141 mg/dL (74-106); Protein, Total 6.2 g/dL (6.4-8.2); Sodium Level 141 mmol/L (136-145)
--- NOTE | 2023-06-03 07:20 | PCM.PN.HOSP ---
Reason for Visit Reason for Visit: Diagnoses Cellulitis of right lower limb (06/02/23) Subjective Subjective Patient is a 48-year-old gentleman admitted with redness to the right thigh with associated fever. Diagnosed with cellulitis admitted to regular nursing floor for further management Objective Data Objective Data Vital Signs: Vital Signs Temp Pulse Resp BP Pulse Ox O2 Del Method 99.1 F 104 H 18 128/71 H 97 Room Air 06/03/23 03:36 06/03/23 03:36 06/03/23 03:36 06/03/23 03:36 06/03/23 03:36 06/03/23 03:52 Oxygen Delivery Method Room Air Weight: 153.1 kg Body Mass Index (BMI) 42.2 Intake & Output: Intake and Output for Last 24 Hours 06/01/23 06/02/23 06/03/23 23:59 23:59 23:59 Intake Total 190 / 1902 1772.75 / 1772.75 Balance 190 / 1902 1772.75 / 1772.75 Lab / Micro Data 06/03/23 05:30 06/03/23 05:30 Labs: Laboratory Results - last 24 hr 06/02/23 15:40: WBC 5.2, RBC 3.37 L, Hgb 9.5 L, Hct 29.6 L, MCV 87.8, MCH 28.2, MCHC 32.1, RDW Std Deviation 55.3 H, RDW Coeff of Ramya 17.6 H, Plt Count 59 L, MPV 12.2 H, Immature Gran % (Auto) 0.400, Neut % (Auto) 71.4 H, Lymph % (Auto) 13.4 L, Wright % (Auto) 11.7 H, Eos % (Auto) 2.7, Baso % (Auto) 0.4, Absolute Neuts (auto) 3.7, Absolute Lymphs (auto) 0.70 L, Nucleated RBC % 0, Sodium 137, Potassium 3.7, Chloride 107, Carbon Dioxide 27.0, Anion Gap 3 L, BUN 10, Creatinine 0.85, Estim Creat Clear Calc 125.65, Est GFR (MDRD) Af Amer 123, Est GFR (MDRD) Non-Af 101, BUN/Creatinine Ratio 11.7, Glucose 128 H, Lactic Acid 1.9, Calcium 8.4 L, Total Bilirubin 3.80 H, Direct Bilirubin 0.71 H, AST 31, ALT 22, Alkaline Phosphatase 87, Total Protein 6.5, Albumin 2.8 L, Globulin 3.7, Albumin/Globulin Ratio 0.8 L 06/03/ 05:30: WBC 3.1 L, RBC 3.02 L, Hgb 8.5 L, Hct 27.6 L, MCV 91.4, MCH 28.1, MCHC 30.8 L, RDW Std Deviation 58.4 H, RDW Coeff of Ramya 17.5 H, Plt Count 55 L, MPV 11.0, Immature Gran % (Auto) 0.300, Neut % (Auto) 60.9, Lymph % (Auto) 20.9, Wright % (Auto) 12.5 H, Eos % (Auto) 4.8, Baso % (Auto) 0.6, Absolute Neuts (auto) 1.9 L, Absolute Lymphs (auto) 0.65 L, Nucleated RBC % 0, Sodium 141, Potassium 4.0, Chloride 112 H, Carbon Dioxide 25.0, Anion Gap 4 L, BUN 9, Creatinine 0.74, Estim Creat Clear Calc 144.32, Est GFR (MDRD) Af Amer 144, Est GFR (MDRD) Non-Af 119, BUN/Creatinine Ratio 12.1, Glucose 141 H, Calcium 8.1 L, Total Bilirubin 2.20 H, AST 31, ALT 21, Alkaline Phosphatase 96, Total Protein 6.2 L, Albumin 2.5 L, Globulin 3.7, Albumin/Globulin Ratio 0.7 L Physical Exam Narrative GENERAL: cooperative HEENT: Atraumatic; normocephalic EYES; Anicteric, Normal Conjunctiva NECK; supple, normal thyroid, RESPIRATORY: Diminished to auscultation CARDIOVASCULAR: Regular S1 S2, GI: soft, normoactive bowel sounds, : No Renal angle tenderness; EXTREMITIES: No edema, no clubbing, MUSCULOSKELETAL: no muscle wasting NEURO: Awake; no lateralizing signs. SKIN: Erythema involving the medial aspect of the right thigh PSYCH; Flat affect Assessment & Plan Assessment/Plan (1) Cellulitis: QUALIFIERS: Laterality: right Site of cellulitis: extremity Site of cellulitis of extremity: lower extremity Qualified Code(s): L03.115 - Cellulitis of right lower limb PLAN: Plan Patient is a 48-year-old gentleman admitted with redness to the right thigh with associated fever. Diagnosed with cellulitis admitted to regular nursing floor for further management 1. Cellulitis ? Apparently recurrent admitted to regular nursing floor. Managed with vancomycin and Unasyn cultures sent on admission 2. Essential hypertension ? Patient blood pressure was apparently low on admission patient is on lisinopril dose adjusted 3. Diabetes mellitus type 2 ? On metformin held on admission placed on Accu-Cheks before meals and at bedtime with sliding scale coverage 4. GERD ? On PPI 5. Cirrhosis of the liver ? Secondary to NAFLD possibly from his underlying diabetes. 6. Thrombocytopenia ? Secondary to his cirrhosis of the liver monitoring with daily CBCs 7. Class III obesity with BMI of 42.2 ? Complicating care weight loss advised 8. Depression with anxiety ? Did continue patient psychotropic medications 9. Anemia - Secondary to chronic disorder monitoring H&H and transfuse if patient becomes symptomatic or hemoglobin falls below 7 10. DVT prophylaxis ? Chemoprophylaxis avoided given patient low platelet count Time spent in the patient's overall evaluation,decision-making process, review of diagnostic data, adjustment of management, discussion with other providers, nursing nursing and ancillary staff involved in patient's care documentation, 50 Minutes Charges/Coding Visit Charges Inpatient E&M: 03918 [facility] Hosp L3
[2023-06-03 08:35] VITALS: BP 153/79; PULSE 94; RESP 18; TEMP 36.6; O2SAT 98
[2023-06-03] MEDS: Gabapentin 300 MG Capsule PO ×2 (08:40→22:57)
[2023-06-03] MEDS: DEXTROAMPHETAMINE PO ×2 (08:40→16:38)
[2023-06-03] MEDS: AMPHETAMINE PO ×2 (08:40→16:38)
[2023-06-03] MEDS: Pantoprazole Sodium 40 MG Tablet PO (08:41)
[2023-06-03] MEDS: Lisinopril 20 MG Tablet PO (08:41)
--- NOTE | 2023-06-03 13:00 | CASEMGMT ---
RN?CM?ORIENTAL RUG REPAIRER?CM?to room to meet with patient for initial transition planning/care coordination?assessment.?RN?CM?introduced self and role at [facility].? Pt voices understanding and consents to?assessment?at this time.? Pt resting in bed in no distress at this time.? Pt is A/O at this time and answers all questions appropriately.?? Care providers, pharmacy, and demographics verified/updated at this time. PCP: Dr Box Specialists: ASHWIN Soriano--[facility]--pt states for depression. Ortho @ [facility]. Dr Corley-GI/hepatology, Dr Felix--vascular [facility]. Preferred Pharmacy: [facility] Retail Insurance: [employer] R[employer] Prescription Benefit:?Yes Living Will/HPOA:?Pt does not currently have LW/HCPOA and declines info at this time. LNOK: [place] Living Arrangements: Lives w/ and 2 adult kids in 2-story home w/3 steps to enter. FFSU. Pt is independent w/ADL's. Pt/ share home mgnt tasks. Transportation:?Pt, DME: ?States has the following DME:?functioning glucometer w/supplies, lymphadema boots, TENS unit ?Pt states no need for further DME at this time.? HHC/SNF: No hx of either. No HHC needs identified. Pt wishes to return home and states has no concerns with going home at time of discharge.? ?CM?to follow for any discharge planning/needs.? Pt voices no concerns/needs at this time.? Advised pt to ask for?CM?if any questions/concerns/needs arise.? Voices understanding. PLAN:??Home. Claus SINGHN?RN?CM
[2023-06-03 14:17] VITALS: BP 154/75; PULSE 95; RESP 18; TEMP 36.5; O2SAT 100
[2023-06-03 21:00] VITALS: BP 165/80; PULSE 94; RESP 20; TEMP 36.7; O2SAT 95
[2023-06-03] MEDS: QUEtiapine 25 MG Tablet 50 MG PO (22:57)
[2023-06-03] MEDS: lamoTRIgine 100 MG Tablet PO (22:57)
[2023-06-03] MEDS: Tamsulosin HCl 0.4 MG Capsule PO (22:57)
[2023-06-04 02:23] VITALS: BP 128/57; PULSE 93; RESP 20; TEMP 36.8; O2SAT 94
[2023-06-04] MEDS: oxyCODONE 5 MG Tablet PO (02:30)
[2023-06-04 06:18] LABS: Vancomycin, Trough Level 9.3 ug/mL (5.0-15.0)
--- NOTE | 2023-06-04 07:20 | PCM.RX.CS ---
Consult Antibiotic Management Pharmacy has been consulted to manage selected antiobiotic: Vancomycin Type of Intervention Type of Consult: Follow-up Suspected Infection Suspected Infection: Skin/Soft tissue Prior Doses of Antibiotics Prior Doses of Antibiotics Received/Current Regimen: Currently on 1750mg iv q12h. Labs Labs: Sodium 141 mmol/L (136-145) 06/03/23 05:30 Potassium 4.0 mmol/L (3.5-5.1) 06/03/23 05:30 Chloride 112 mmol/L (98-107) H 06/03/23 05:30 Carbon Dioxide 25.0 mmol/L (21.0-32.0) 06/03/23 05:30 Anion Gap 4 (5-15) L 06/03/23 05:30 BUN 9 mg/dL (7-18) 06/03/23 05:30 Creatinine 0.74 mg/dL (0.70-1.30) 06/03/23 05:30 Est GFR (MDRD) Af Amer 144 mL/min (>60) 06/03/23 05:30 Est GFR (MDRD) Non-Af 119 mL/min (>60) 06/03/23 05:30 BUN/Creatinine Ratio 12.1 RATIO (10-20) 06/03/23 05:30 Glucose 141 mg/dL (74-106) H 06/03/23 05:30 Vancomycin Trough 9.3 ug/mL (5.0-15.0) 06/04/23 04:40 Dosing Weight Weight used for dosin kg Estimated Creatinine Clearance Estimated Creatinine Clearance: >120 Goal Trough Goal Trough: 10-15 mcg/mL Pharmacy Plan for Drug Dosing Pharmacy Plan for Drug Dosing: Trough today 9.3 12 hrs post dose. Cr 0.74, Cl >120 using adjusted body weight 111.9kg. Recommend increasing dose to 2000mg iv q12h. Trough before 4th dose. Pharmacy Service will continue to monitor and adjust dosing as required. Follow-Up Labs Follow-Up Labs: Trough: Vancomycin (8 0530)
--- NOTE | 2023-06-04 08:03 | PCM.PN.HOSP ---
Reason for Visit Reason for Visit: Diagnoses Cellulitis of right lower limb (06/02/23) Subjective Subjective She has seen significant improvement in the erythema. Plans for patient to be assessed for possible discharge Objective Data Objective Data Vital Signs: Vital Signs Temp Pulse Resp BP Pulse Ox O2 Del Method 98.2 F 93 20 H 128/57 H 94 Room Air 06/04/23 02:23 06/04/23 02:23 06/04/23 02:23 06/04/23 02:23 06/04/23 02:23 06/04/23 02:30 Oxygen Delivery Method Room Air Weight: 153.1 kg Body Mass Index (BMI) 42.2 Intake & Output: Intake and Output for Last 24 Hours 06/02/23 06/03/23 06/04/23 23:59 23:59 23:59 Intake Total 1901 / 1901 3141.50 / 3141.50 624 / 624 Balance 1901 / 1901 3141.50 / 3141.50 624 / 624 Lab / Micro Data 06/03/23 05:30 06/03/23 05:30 Labs: Laboratory Results - last 24 hr 06/04/23 04:40: Vancomycin Trough 9.3 Radiography Diagnostic Testing: Radiology Impression Venous Doppler Study 06/02/23 17:56 Interpretation Summary Deep veins of the bilateral lower extremity are patent and compressible segmentally. There is no evidence of bilateral lower extremity deep vein thrombosis. The right great saphenous vein appears patent and compressible segmentally. Left great saphenous and small saphenous veins with visualized chronic thrombus consistent with prior ablation Ordering Physician: Dariel Goel Referring Physician: Omari Box M.D. Performed By: Gavin Rangel RVT Physical Exam Narrative GENERAL: cooperative HEENT: Atraumatic; normocephalic EYES; Anicteric, Normal Conjunctiva NECK; supple, normal thyroid, RESPIRATORY: Diminished to auscultation CARDIOVASCULAR: Regular S1 S2, GI: soft, normoactive bowel sounds, : No Renal angle tenderness; EXTREMITIES: No edema, no clubbing, MUSCULOSKELETAL: no muscle wasting NEURO: Awake; no lateralizing signs. SKIN: Slight erythema involving the medial aspect of the right thigh PSYCH; Flat affect Assessment & Plan Assessment/Plan (1) Cellulitis: QUALIFIERS: Laterality: right Site of cellulitis: extremity Site of cellulitis of extremity: lower extremity Qualified Code(s): L03.115 - Cellulitis of right lower limb PLAN: Plan Patient is a 48-year-old gentleman admitted with redness to the right thigh with associated fever. Diagnosed with cellulitis admitted to regular nursing floor for further management 1. Cellulitis ? Apparently recurrent admitted to regular nursing floor. Managed with vancomycin and Unasyn cultures sent on admission ? 06/04/2023; patient responded to treatment plan is for patient to be assessed for possible 2. Essential hypertension ? Patient blood pressure was apparently low on admission patient is on lisinopril dose adjusted 3. Diabetes mellitus type 2 ? On metformin held on admission placed on Accu-Cheks before meals and at bedtime with sliding scale coverage 4. GERD ? On PPI 5. Cirrhosis of the liver ? Secondary to NAFLD possibly from his underlying diabetes. 6. Thrombocytopenia ? Secondary to his cirrhosis of the liver monitoring with daily CBCs 7. Class III obesity with BMI of 42.2 ? Complicating care weight loss advised 8. Depression with anxiety ? Did continue patient psychotropic medications 9. Anemia - Secondary to chronic disorder monitoring H&H and transfuse if patient becomes symptomatic or hemoglobin falls below 7 10. DVT prophylaxis ? Chemoprophylaxis avoided given patient low platelet count Time spent in the patient's overall evaluation,decision-making process, review of diagnostic data, adjustment of management, discussion with other providers, nursing nursing and ancillary staff involved in patient's care documentation, 35 minutes Charges/Coding Visit Charges Inpatient E&M: 05212 Subs Hosp L2
[2023-06-04 08:33] VITALS: BP 133/64; PULSE 92; RESP 18; TEMP 36.6; O2SAT 98
[2023-06-04] MEDS: AMPHETAMINE PO (08:39)
[2023-06-04] MEDS: Lisinopril 20 MG Tablet PO (08:39)
[2023-06-04] MEDS: Gabapentin 300 MG Capsule PO (08:39)
[2023-06-04] MEDS: Pantoprazole Sodium 40 MG Tablet PO (08:39)
[2023-06-04] MEDS: DEXTROAMPHETAMINE PO (08:39)
--- NOTE | 2023-06-04 09:11 | PCM.DC.SUM ---
Providers Date of Admission: 06/02/23 Date of Discharge: 06/04/23 Primary Care Physician: Dr. Omari Box MD Reason For Visit: CELLULITIS Diagnosis Discharge Diagnosis (1) Cellulitis: Status: Acute Code(s): L03.90 - Cellulitis, unspecified Qualifiers: Site of cellulitis: extremity Site of cellulitis of extremity: lower extremity Laterality: right Qualified Code(s): L03.115 - Cellulitis of right lower limb Plan Patient is a 48-year-old gentleman admitted with redness to the right thigh with associated fever. Diagnosed with cellulitis admitted to regular nursing floor for further management 1. Cellulitis ? Apparently recurrent admitted to regular nursing floor. Managed with vancomycin and Unasyn cultures sent on admission ? 06/04/2023; patient responded to treatment plan is for patient to be assessed for possible 2. Essential hypertension ? Patient blood pressure was apparently low on admission patient is on lisinopril dose adjusted 3. Diabetes mellitus type 2 ? On metformin held on admission placed on Accu-Cheks before meals and at bedtime with sliding scale coverage 4. GERD ? On PPI 5. Cirrhosis of the liver ? Secondary to NAFLD possibly from his underlying diabetes. 6. Thrombocytopenia ? Secondary to his cirrhosis of the liver monitoring with daily CBCs 7. Class III obesity with BMI of 42.2 ? Complicating care weight loss advised 8. Depression with anxiety ? Did continue patient psychotropic medications 9. Anemia - Secondary to chronic disorder monitoring H&H and transfuse if patient becomes symptomatic or hemoglobin falls below 7 10. DVT prophylaxis ? Chemoprophylaxis avoided given patient low platelet count Time spent in the patient's overall evaluation,decision-making process, review of diagnostic data, adjustment of management, discussion with other providers, nursing nursing and ancillary staff involved in patient's care documentation, 35 minutes Medications at Discharge Home Medications gabapentin 300 mg capsule 300 mg PO BID NERVE PAIN 02/11/19 tamsulosin 0.4 mg capsule 0.4 mg PO QHS PROSTATE 04/05/21 dextroamphetamine-amphetamine 15 mg tablet 15 mg PO BID ADHD 12/25/21 lamotrigine 25 mg tablet 100 mg PO QHS DEPRESSION 12/25/21 omeprazole 40 mg capsule,delayed release 40 mg PO DAILY GERD 12/25/21 quetiapine 50 mg tablet 50 mg PO QHS MOOD 12/25/21 sildenafil 50 mg tablet 50 mg PO X1 PRN Erectile Dysfunction 12/25/21 ibuprofen 800 mg tablet 800 mg PO Q8H PRN FEVER/PAIN 06/02/23 lisinopril 40 mg tablet 40 mg PO DAILY BLOOD PRESSURE 06/02/23 metformin 1,000 mg tablet 1,000 mg PO BID DIABETES 06/02/23 promethazine 25 mg tablet 25 mg PO Q8H PRN NAUSEA/VOMITING 06/02/23 tizanidine 4 mg tablet 4 mg PO Q8H PRN MUSCLE SPASMS 06/02/23 cefdinir 300 mg capsule 300 mg PO BID #10 caps 06/04/23 Hospital Course Summary of Care Provided Minutes Spent on Discharge: 35 Physical Exam Narrative GENERAL: cooperative HEENT: Atraumatic; normocephalic EYES; Anicteric, Normal Conjunctiva NECK; supple, normal thyroid, RESPIRATORY: Diminished to auscultation CARDIOVASCULAR: Regular S1 S2, GI: soft, normoactive bowel sounds, : No Renal angle tenderness; EXTREMITIES: No edema, no clubbing, MUSCULOSKELETAL: no muscle wasting NEURO: Awake; no lateralizing signs. SKIN: Slight erythema involving the medial aspect of the right thigh PSYCH; Flat affect Weight / BMI Weight Weight: 153.1 kg Body Mass Index (BMI) 42.2 ABG / Lab / Microbiology Data 06/03/23 05:30 06/03/23 05:30 Laboratory: Laboratory Results - last 24 hr 06/04/23 04:40: Vancomycin Trough 9.3 Radiography Diagnostic Testing: Radiology Impression Venous Doppler Study 06/02/23 17:56 Interpretation Summary Deep veins of the bilateral lower extremity are patent and compressible segmentally. There is no evidence of bilateral lower extremity deep vein thrombosis. The right great saphenous vein appears patent and compressible segmentally. Left great saphenous and small saphenous veins with visualized chronic thrombus consistent with prior ablation Ordering Physician: Dariel Goel Referring Physician: Oamri Box M.D. Performed By: Juan Carlos, Gavin, RVT D/C Instructions Discharge Diet: 1800 Calorie Control Diet Discharge Activity: Return to Normal Activity Call your doctor if you observe: Fever of 101 or Higher, Shortness of breath, Fainting spells and Chest pain Meaningful Use Info Meaningful Use Diagnoses (Choose all that apply): None applicable Discharge Plan Admission Admit Date/Time: 06/02/23 17:50 Attending Provider: Curtis Weeks Primary Care Provider: Omari Box Consulting Providers: Dariel Goel Discharge Orders/Prescriptions Prescriptions: New cefdinir 300 mg capsule 300 mg PO BID Qty: 10 0RF Continued gabapentin 300 MG capsule 300 mg PO BID Rx Instructions: take 300 mg BID tamsulosin 0.4 mg capsule 0.4 mg PO QHS sildenafil 50 mg tablet 50 mg PO X1 PRN (Reason: Erectile Dysfunction) Patient Comments: Take 1 tab. by mouth once daily as needed 1 hour before sexual activity; may take up to 4 hours before sexual activity. lamotrigine 25 mg tablet 100 mg PO QHS Patient Comments: take 1 tablet by mouth every evening for 7 days then 2 tablets by... (REFER TO PRESCRIPTION NOTES). quetiapine 50 mg tablet 50 mg PO QHS omeprazole 40 mg capsule,delayed release(DR/EC) 40 mg PO DAILY dextroamphetamine-amphetamine 15 mg Tablet 15 mg PO BID promethazine 25 mg tablet 25 mg PO Q8H PRN (Reason: NAUSEA/VOMITING) tizanidine 4 mg tablet 4 mg PO Q8H PRN (Reason: MUSCLE SPASMS) ibuprofen 800 mg tablet 800 mg PO Q8H PRN (Reason: FEVER/PAIN) lisinopril 40 mg tablet 40 mg PO DAILY metformin 1,000 mg tablet 1,000 mg PO BID Referrals / Follow Up: Omari Box MD [Primary Care Provider] - Disposition Disposition (needs filled in before D/C Order can be placed): Home, Self Care Charges/Coding Visit Charges Inpatient E&M: 16154 Disch Hosp >30min
--- NOTE | 2023-06-04 10:03 | PHA.DC.MC.R ---
Pharmacy [facility] has performed discharge medication reconciliation and counseling for this patient. The patient was counseled on the following discharge medications and changes in medications for homegoing were reviewed. 1. CEFDINIR The Reason for Use, instructions for use, and potential side effects were reviewed for all new medications. The patient's questions regarding all of their medications were answered. The patient was able to verbally demonstrate an understanding of their discharge medications. The patient's discharge medication list was reviewed for discrepancies and discrepancies were resolved. Patient counselled by Dalia Toro PharmD Candidate Medications at Discharge Home Medications gabapentin 300 mg capsule 300 mg PO BID NERVE PAIN 02/11/19 tamsulosin 0.4 mg capsule 0.4 mg PO QHS PROSTATE 04/05/21 dextroamphetamine-amphetamine 15 mg tablet 15 mg PO BID ADHD 12/25/21 lamotrigine 25 mg tablet 100 mg PO QHS DEPRESSION 12/25/21 omeprazole 40 mg capsule,delayed release 40 mg PO DAILY GERD 12/25/21 quetiapine 50 mg tablet 50 mg PO QHS MOOD 12/25/21 sildenafil 50 mg tablet 50 mg PO X1 PRN Erectile Dysfunction 12/25/21 ibuprofen 800 mg tablet 800 mg PO Q8H PRN FEVER/PAIN 06/02/23 lisinopril 40 mg tablet 40 mg PO DAILY BLOOD PRESSURE 06/02/23 metformin 1,000 mg tablet 1,000 mg PO BID DIABETES 06/02/23 promethazine 25 mg tablet 25 mg PO Q8H PRN NAUSEA/VOMITING 06/02/23 tizanidine 4 mg tablet 4 mg PO Q8H PRN MUSCLE SPASMS 06/02/23 cefdinir 300 mg capsule 300 mg PO BID #10 caps 06/04/23
== END 2023-06-04 11:18 | disposition home or self-care (01) | DRG 603 ==
LOC: ED 17:10 → MS3 06-03 07:10
PROVIDERS: Admitting Provider Internal Medicine; Emergency Provider Emergency Medicine; PCP Internal Medicine; Visit Provider Internal Medicine
DX: L03.115 Cellulitis of right lower limb (principal); D61.818 Other pancytopenia; Z68.41 Body mass index [BMI] 40.0-44.9, adult; D69.6 Thrombocytopenia, unspecified; D63.8 Anemia in other chronic diseases classified elsewhere; K74.60 Unspecified cirrhosis of liver; E11.9 Type 2 diabetes mellitus without complications; E66.01 Morbid (severe) obesity due to excess calories; I10 Essential (primary) hypertension; K21.9 Gastro-esophageal reflux disease without esophagitis; F41.8 Other specified anxiety disorders; L03.116 Cellulitis of left lower limb; Z87.891 Personal history of nicotine dependence
CPT/HCPCS: 36415; 80053; 80202; 82248; 83605; 85025; 93970; 94668; 99252; 99282; J7030; J7040; J7050; A4216; G0463; J0295; J2405

== ENCOUNTER 2023-08-21 13:21 | Inpatient (IN) | payer OTHER, SELFPAY ==
[2023-08-21 13:22] VITALS: BP 151/70; PULSE 91; RESP 18; TEMP 37.2; O2SAT 99
--- NOTE | 2023-08-21 13:31 | EDS_ITS ---
HPI History of Present Illness Chief Complaint: Lower Extremity Injury Informant: patient Narrative Narrative: Patient presenting with pain, swelling, redness in his left lower extremity that feels like prior episodes of cellulitis, started in his medial left foot and ankle, and has progressed up to his knee despite taking doxycycline that he had at home for this for the past 4 days. He states initially for the first 2 days of this he had fevers and chills, measuring up to 103. No fevers in the last few days. No groin pain. Some swelling in his foot where this started, but no discharge, no swelling in the leg other than his normal edema that he has ely aterally, that he associates with chronic venous insufficiency, which is why he has been told he gets recurrent cellulitis. [facility] Medical History Cellulitis Cellulitis of left ankle Chronic pain Cirrhosis Depression Diabetes mellitus with complication DVT (deep venous thrombosis) Edema Former smoker GERD (gastroesophageal reflux disease) Gout attack Insomnia Intervertebral disc disorder with radiculopathy of lumbar region Liver cirrhosis secondary to DEAN Lumbar disc disease with radiculopathy Lumbar disc prolapse with compression radiculopathy Malnutrition Morbid obesity due to excess calories Osteoporosis Other intervertebral disc degeneration, lumbar region Perianal abscess Rheumatoid arthritis Sleep apnea Spinal stenosis of lumbar region with neurogenic claudication Thrombocytopenia Ulcer of left ankle Ulcer of right lower extremity with fat layer exposed Vein disorder Venous insufficiency Home Medications gabapentin 300 mg capsule 300 mg PO BID NERVE PAIN 02/11/19 [History Last Taken 06/02/23] tamsulosin 0.4 mg capsule 0.4 mg PO QHS PROSTATE 04/05/21 [History Last Taken 06/01/23] dextroamphetamine-amphetamine 15 mg tablet 15 mg PO BID ADHD 12/25/21 [History Last Taken 06/02/23] lamotrigine 25 mg tablet 100 mg PO QHS DEPRESSION 12/25/21 [History Last Taken 06/01/23] omeprazole 40 mg capsule,delayed release 40 mg PO DAILY GERD 12/25/21 [History Last Taken 06/02/23] quetiapine 50 mg tablet 50 mg PO QHS MOOD 12/25/21 [History Last Taken 06/01/23] sildenafil 50 mg tablet 50 mg PO X1 PRN Erectile Dysfunction 12/25/21 [History Last Taken Unknown] ibuprofen 800 mg tablet 800 mg PO Q8H PRN FEVER/PAIN 06/02/23 [History Last Taken Unknown] lisinopril 40 mg tablet 40 mg PO DAILY BLOOD PRESSURE 06/02/23 [History Last Taken 06/02/23] metformin 1,000 mg tablet 1,000 mg PO BID DIABETES 06/02/23 [History Last Taken 06/02/23] promethazine 25 mg tablet 25 mg PO Q8H PRN NAUSEA/VOMITING 06/02/23 [History Last Taken Unknown] tizanidine 4 mg tablet 4 mg PO Q8H PRN MUSCLE SPASMS 06/02/23 [History Last Taken Unknown] cefdinir 300 mg capsule 300 mg PO BID #10 caps 06/04/23 [Rx Last Taken Unknown] Allergy/AdvReac Type Severity Reaction Status Date / Time No Known Allergies Allergy Verified 08/21/23 13:22 Surgical History history incision and drainage perianal abscess (~10/05/20) History of cholecystectomy History of gastric surgery Status post laparoscopic Lazaro fundoplication Social History household members: spouse and children Smoking Status: Former smoker quit date: 10/12/11 pack-years: 2 Tobacco: How many years used: 20 alcohol intake: never substance use type: does not use ROS ROS ED Constitutional Constitutional ED: Reports chills and fever(s) Cardiovascular Cardiovascular: Reports leg edema; Denies chest pain Respiratory/Chest Respiratory/Chest: Denies dyspnea Musculoskeletal Musculoskeletal: Reports extremity pain; Denies neck pain Integumentary Denies Abrasions, rash or wounds Neurologic Neurologic: Denies paresthesias or weakness EXAM Physical Exam Const Vital Signs: 08/21/23 13:22 Temperature 98.9 F Temperature Source Temporal Pulse Rate 91 Respiratory Rate 18 Blood Pressure 151/70 H Blood Pressure Mean 97 Pulse Ox 99 Oxygen Delivery Method Room Air Positive well nourished and well developed General Appearance ED: well developed and NAD Neck full ROM and supple Back/Spine normal ROM and normal to inspection Extremity full ROM Extremity Narrative: Cellulitis medial aspect of the left lower leg into the foot and ankle, no lymphangitis, see below. Full range of motion of joints including the ankle. Neuro oriented x3, no focal motor deficits and no sensory deficits noted Sensorium / Orientation: alert Psych mental status grossly normal and thought process normal Skin no wounds Skin Narrative: Significant hyperemia that blanches with significant tenderness at the medial aspect of the foot and ankle closer to the hindfoot. The plantar aspect and the lateral foot, dorsal foot are not affected. It is affecting the medial aspect of the ankle and on up to the medial aspect of the calf. It does not emanate around the leg further, nor does it go all the way to the knee joint or proximally. There is no calf tenderness except for palpating in the erythematous area of cellulitis, there is no subcutaneous emphysema, there is no palpable cords, he has symmetric edema bilaterally, and no inguinal lymphadenopathy. MDM MDM MDM Narrative Medical decision making narrative: Obtain three-view x-ray of the left ankle, to evaluate for subcutaneous emphysem a that could be an indicator of necrotizing fasciitis. On my interpretation I do not see any. Radiology in agreement that there is just soft tissue swelling. His labs shows pancytopenia. My suspicion is that he has Dean cirrhosis and that is causing this. Much of it is unchanged. Given that he has been on oral doxycycline for the past 4 days, cellulitis has been spreading and he clearly has failed that, he is amenable to staying in the hospital with IV antibiotics. He states Zosyn and vancomycin worked in the past we started those. History & Record Review Additional record(s) reviewed:: Prior labs Lab Data Attestation: I reviewed the patient's lab results. Labs: Laboratory Results - last 24 hr 08/21/23 13:39 WBC 3.3 L RBC 3.29 L Hgb 9.4 L Hct 29.4 L MCV 89.4 MCH 28.6 MCHC 32.0 RDW Std Deviation 55.8 H RDW Coeff of Ramya 17.2 H Plt Count 63 L MPV 11.0 Immature Gran % (Auto) 0.300 Neut % (Auto) 55.0 Lymph % (Auto) 27.2 [place] % (Auto) 10.3 H Eos % (Auto) 6.3 H Baso % (Auto) 0.9 Absolute Neuts (auto) 1.8 L Absolute Lymphs (auto) 0.90 Nucleated RBC % 0 Sodium 139 Potassium 3.6 Chloride 106 Carbon Dioxide 26.0 Anion Gap 7 BUN 8 Creatinine 0.90 Est GFR (MDRD) Af Amer 116 Est GFR (MDRD) Non-Af 96 BUN/Creatinine Ratio 8.9 L Glucose 192 H Calcium 7.7 L Radiography Diagnostic Testing: Clinical Impression(s) from Imaging Studies Ankle X-Ray 08/21/23 13:45 IMPRESSION: Diffuse soft tissue swelling. Electronically Signed: Timothy Guo MD at 13:59 EST , Discharge Plan Dx/Rx/DC Orders Clinical Impression: Cellulitis of left lower extremity, Pancytopenia, Failure of outpatient treatment Disposition Disposition: Acute Care Hospital [facility]
[2023-08-21] MEDS: Morphine 4 MG/ML Syringe IV ×2 (13:43→17:08)
--- NOTE | 2023-08-21 13:45 | RAD_ITS ---
STUDY: X-RAY - LEFT ANKLE REASON FOR EXAM: Male, 48 years old. Infection - attn medially TECHNIQUE: 3 view(s) of the ankle. COMPARISON: None. FINDINGS: Normal visualized distal tibia and fibula. Normal medial and lateral malleoli. Normal tibiotalar articulation and ankle mortise. Calcaneal spurs. The visualized subtalar, talonavicular, calcaneocuboid and tarsal articulations are normal. Diffuse soft tissue swelling. RAD/Ankle min 3 Views IMPRESSION: Diffuse soft tissue swelling. Electronically Signed: Timothy Guo MD at 13:59 EST ,
[2023-08-21 13:53] LABS: Absolute Neutrophil Count 1.8 X10^3/uL (2.0-7.7); Basophil# 0.03 X10^3/uL; Basophil% 0.9 % (0-1); Eosinophil# 0.21 X10^3/uL; Eosinophils% 6.3 % (0-5); Hematocrit 29.4 % (40-54); Hemoglobin 9.4 g/dL (13.0-16.5); Lymphocyte % 27.2 % (19-41); Mean Corpuscular Hgb 28.6 pg (27.0-32.0); Mean Corpuscular Volume 89.4 fL (80-94); Monocyte# 0.34 X10^3/uL; Monocyte% 10.3 % (0-10); NRBC Flagged by Analyzer 0 % (0-5); Neutrophil # 1.82 X10^3/uL (2.7-7.7); POSITIVE COUNT YES; Platelet Count 63 K/mm3 (150-450); RBC Distribution Width CV 17.2 % (11.6-14.6); RBC Distribution Width SD 55.8 fl (35.1-43.9); Red Blood Count 3.29 M/mm3 (4.6-6.2); White Blood Count 3.3 K/mm3 (4.4-11.0)
[2023-08-21] MEDS: Piperacil/Tazobactam 3.375 GM in 0.9% Normal Saline (50mL MB+) 50 ML IV ×2 (13:57→22:23)
[2023-08-21 14:06] LABS: Anion Gap 7 (5-15); BUN 8 mg/dL (7-18); BUN/Creat Ratio 8.9 RATIO (10-20); Calcium,Total 7.7 mg/dL (8.5-10.1); Chloride 106 mmol/L (98-107); EST Glomerular Filtration Rate 96 mL/min (>60); Est Glom Filt Rate - Afr Amer 116 mL/min (>60); Glucose 192 mg/dL (74-106); Potassium 3.6 mmol/L (3.5-5.1); Sodium Level 139 mmol/L (136-145)
[2023-08-21 14:26] VITALS: BMI 43.0
--- NOTE | 2023-08-21 14:40 | PCM.HP.STD ---
HPI - General General Date of Admission: 08/21/23 HPI Narrative LIBRADO CARLSON, is a 48 M who presents to the hospital with cellulitis that has not resolved after 4 days of antibiotics. He states that he has frequent episodes of cellulitis and so his doctor has prescribed him antibiotics to keep at home to start taking if he notices redness he says that he has been taking doxycycline for the last 4 days without any improvement. In the ER white count is 3.3 and he is afebrile but states that he had a temperature of 103 over the first couple of days with his cellulitis. He went to urgent care who recommended that he come into the ED. [facility] Medical History Cellulitis Cellulitis of left ankle Chronic pain Cirrhosis Depression Diabetes mellitus with complication DVT (deep venous thrombosis) Edema Former smoker GERD (gastroesophageal reflux disease) Gout attack Insomnia Intervertebral disc disorder with radiculopathy of lumbar region Liver cirrhosis secondary to DEAN Lumbar disc disease with radiculopathy Lumbar disc prolapse with compression radiculopathy Malnutrition Morbid obesity due to excess calories Osteoporosis Other intervertebral disc degeneration, lumbar region Perianal abscess Rheumatoid arthritis Sleep apnea Spinal stenosis of lumbar region with neurogenic claudication Thrombocytopenia Ulcer of left ankle Ulcer of right lower extremity with fat layer exposed Vein disorder Venous insufficiency Home Medications gabapentin 300 mg capsule 300 mg PO BID NERVE PAIN 02/11/19 [History Last Taken 06/02/23] tamsulosin 0.4 mg capsule 0.4 mg PO QHS PROSTATE 04/05/21 [History Last Taken 06/01/23] dextroamphetamine-amphetamine 15 mg tablet 15 mg PO BID ADHD 12/25/21 [History Last Taken 06/02/23] lamotrigine 25 mg tablet 100 mg PO QHS DEPRESSION 12/25/21 [History Last Taken 06/01/23] omeprazole 40 mg capsule,delayed release 40 mg PO DAILY GERD 12/25/21 [History Last Taken 06/02/23] quetiapine 50 mg tablet 50 mg PO QHS MOOD 12/25/21 [History Last Taken 06/01/23] sildenafil 50 mg tablet 50 mg PO X1 PRN Erectile Dysfunction 12/25/21 [History Last Taken Unknown] lisinopril 40 mg tablet 40 mg PO DAILY BLOOD PRESSURE 06/02/23 [History Last Taken 06/02/23] metformin 1,000 mg tablet 1,000 mg PO BID DIABETES 06/02/23 [History Last Taken 06/02/23] promethazine 25 mg tablet 25 mg PO Q8H PRN NAUSEA/VOMITING 06/02/23 [History Last Taken Unknown] tizanidine 4 mg tablet 4 mg PO Q8H PRN MUSCLE SPASMS 06/02/23 [History Last Taken Unknown] Allergy/AdvReac Type Severity Reaction Status Date / Time No Known Allergies Allergy Verified 08/21/23 13:22 Family History (Updated 08/21/23 @ 14:[address] Govind Domínguez MD) Other COPD (chronic obstructive pulmonary disease) Cancer Hypertension Surgical History history incision and drainage perianal abscess (~10/05/20) History of cholecystectomy History of gastric surgery Status post laparoscopic Lazaro fundoplication Social History household members: spouse and children Smoking Status: Former smoker quit date: 10/12/11 pack-years: 2 Tobacco: How many years used: 20 alcohol intake: never substance use type: does not use ROS Constitutional Constitutional: Reports fever(s); Denies chills, fatigue or malaise Eyes Eyes: Denies blurry vision ENT HEENT: Denies headache(s) or nasal discharge Cardiovascular Cardiovascular: Reports edema; Denies chest pain, dyspnea on exertion or syncope Respiratory/Chest Respiratory/Chest: Denies cough, shortness of breath at rest or shortness of breath with exertion Gastrointestinal Gastrointestinal: Denies constipation, diarrhea, nausea or vomiting Genitourinary Genitourinary: Denies dysuria Integumentary Integumentary: Reports erythema Neurologic Neurologic: Denies focal weakness, numbness or tremor(s) Psychiatric Psychiatric: Denies anxiety or depression Vital Signs Vital Signs Vital Signs: 08/21/23 13:22 Temperature 98.9 F Temperature Source Temporal Pulse Rate 91 Respiratory Rate 18 Blood Pressure 151/70 H Blood Pressure Mean 97 Pulse Ox 99 Oxygen Delivery Method Room Air Weight Weight: 344 lb 12.847 oz Body Mass Index (BMI) 43.0 Physical Exam Narrative General: Alert, Oriented x3, Cooperative, No apparent distress HEENT: Atraumatic, PERRLA, EOMI, Normocephalic Oral: Moist Mucosa Neck: Supple, No JVD Lungs: Diminished, Normal air movement, No rhonchi, No wheeze, No rales Cardiovascular: Regular rate, Regular Rhythm, Normal S1, Normal S2, No murmurs Abdomen: Soft, Non Tender, Non-Distended, No Hepato-splenomegaly Extremities: Left lower extremity edema, Capillary Refill Less than 3 Seconds Skin: Minimal erythema on the medial aspect of his left foot up to his ankle Musculoskeletal: No Tenderness to Palpation of Joints or Extremities Neurological: Cranial nerves II-XII grossly intact, Motor Exam 5/5 strength throughout, Sensory exam intact to light touch and pain Psych/Mental Status: Normal Affect, Appropriate Results Lab / Micro Data 08/21/23 13:39 08/21/23 13:39 Labs: Laboratory Results - last 24 hr 08/21/23 13:39: WBC 3.3 L, RBC 3.29 L, Hgb 9.4 L, Hct 29.4 L, MCV 89.4, MCH 28.6, MCHC 32.0, RDW Std Deviation 55.8 H, RDW Coeff of Ramya 17.2 H, Plt Count 63 L, MPV 11.0, Immature Gran % (Auto) 0.300, Neut % (Auto) 55.0, Lymph % (Auto) 27.2, [place] % (Auto) 10.3 H, Eos % (Auto) 6.3 H, Baso % (Auto) 0.9, Absolute Neuts (auto) 1.8 L, Absolute Lymphs (auto) 0.90, Nucleated RBC % 0, Sodium 139, Potassium 3.6, Chloride 106, Carbon Dioxide 26.0, Anion Gap 7, BUN 8, Creatinine 0.90, Est GFR (MDRD) Af Amer 116, Est GFR (MDRD) Non-Af 96, BUN/Creatinine Ratio 8.9 L, Glucose 192 H, Calcium 7.7 L Radiology Impression Ankle X-Ray 08/21/23 13:45 IMPRESSION: Diffuse soft tissue swelling. Electronically Signed: Timothy Guo MD at 13:59 EST , Assessment & Plan Assessment/Plan (1) Failure of outpatient treatment: (2) Cellulitis of left lower extremity: PLAN: Plan 1. Left lower extremity cellulitis with failure of outpatient therapy ? We will place him on Zosyn as it does not look like staph infection ? Obtain a venous Doppler ? X-ray of the ankle just demonstrates swelling ? She is a diabetic but there does not appear to be any ulcerations or wounds in the vicinity of this redness 2. Nonalcoholic liver cirrhosis with chronic thrombocytopenia/GERD ? He states that he has had DVTs in the past cannot take any blood thinners secondary to his cirrhosis and varices ? Thrombocytopenia is chronic in the 60s ? Continue with PPI when verified 3. HTN ? Blood pressures are currently stable, can resume his home blood pressure medications when verified ? We will monitor and make adjustments as necessary 4. DM2 ? We will place on a carb controlled diet ? We will hold his home metformin ? Continue with sliding scale insulin ? Accu-Cheks ACHS ? We will monitor make adjustments as necessary 5. Anxiety/depression ? Stable ? Continue with his home medications when verified DVT: SCDs 76 minutes was spent on direct patient care, including documentation as well as chart review and collaboration with colleagues Charges/Coding Visit Charges Inpatient E&M: 72236 Init Hosp L3
[2023-08-21] MEDS: Vancomycin HCl 2,000 MG in 0.9% Normal Saline (500mL Bag) 500 ML 250 MG IV (15:46)
[2023-08-21 17:53] VITALS: BMI 42.7
[2023-08-21 18:03] VITALS: BP 151/79; PULSE 90; RESP 18; TEMP 36.8; O2SAT 99
[2023-08-21 18:32] LABS: Bedside Glucose 112 mg/dL (74-106)
[2023-08-21] MEDS: oxyCODONE 5 MG Tablet PO (20:09)
[2023-08-21 21:46] VITALS: BP 152/50; PULSE 86; RESP 20; TEMP 36.7; O2SAT 97
[2023-08-21] MEDS: QUEtiapine 25 MG Tablet 50 MG PO (21:52)
[2023-08-21] MEDS: Insulin Lispro 100 UNIT/ML INSULN.PEN SC (22:22)
[2023-08-21 22:32] LABS: Bedside Glucose 187 mg/dL (74-106)
[2023-08-22 05:28] VITALS: BP 149/66; PULSE 94; RESP 18; TEMP 36.7; O2SAT 98
[2023-08-22] MEDS: oxyCODONE 5 MG Tablet PO ×3 (05:31→20:55)
[2023-08-22] MEDS: Piperacil/Tazobactam 3.375 GM in 0.9% Normal Saline (50mL MB+) 50 ML IV ×3 (05:34→20:57)
[2023-08-22 07:12] LABS: Absolute Lymphocyte Count 1.12 X10^3/uL (0.83-4.51); Absolute Neutrophil Count 1.5 X10^3/uL (2.0-7.7); Basophil# 0.04 X10^3/uL; Basophil% 1.3 % (0-1); Eosinophils% 6.3 % (0-5); Hematocrit 30.3 % (40-54); Hemoglobin 9.6 g/dL (13.0-16.5); Lymphocyte # 1.12 X10^3/ul (0.83-4.51); Lymphocyte % 35.6 % (19-41); Mean Corp Hgb Conc 31.7 g/dL (32-36); Mean Corpuscular Hgb 28.6 pg (27.0-32.0); Mean Corpuscular Volume 90.2 fL (80-94); Mean Platelet Vol. 10.9 fl (6.2-12.0); Monocyte# 0.29 X10^3/uL; Monocyte% 9.2 % (0-10); NRBC Flagged by Analyzer 0 % (0-5); Neutrophil # 1.49 X10^3/uL (2.7-7.7); Neutrophil % 47.3 % (47-70); POSITIVE COUNT YES; Platelet Count 67 K/mm3 (150-450); RBC Distribution Width CV 17.8 % (11.6-14.6); RBC Distribution Width SD 58.4 fl (35.1-43.9); Red Blood Count 3.36 M/mm3 (4.6-6.2); White Blood Count 3.2 K/mm3 (4.4-11.0)
[2023-08-22 07:13] LABS: Bedside Glucose 99 mg/dL (74-106)
[2023-08-22 07:50] LABS: Anion Gap 5 (5-15); BUN 8 mg/dL (7-18); Calcium,Total 8.2 mg/dL (8.5-10.1); Chloride 110 mmol/L (98-107); EST Glomerular Filtration Rate 109 mL/min (>60); Est Glom Filt Rate - Afr Amer 132 mL/min (>60); Glucose 120 mg/dL (74-106); Sodium Level 140 mmol/L (136-145)
[2023-08-22] MEDS: Gabapentin 300 MG Capsule PO ×2 (07:56→16:49)
[2023-08-22] MEDS: AMPHETAMINE PO ×2 (07:57→15:04)
[2023-08-22] MEDS: Lisinopril 40 MG Tablet PO (07:57)
[2023-08-22] MEDS: DEXTROAMPHETAMINE PO ×2 (07:57→15:04)
[2023-08-22] MEDS: Pantoprazole Sodium 40 MG Tablet PO (07:57)
[2023-08-22] MEDS: lamoTRIgine 100 MG Tablet 200 MG PO (07:57)
--- NOTE | 2023-08-22 08:28 | PCM.PN.HOSP ---
Reason for Visit Reason for Visit: Diagnoses Cellulitis of left lower limb (08/21/23) Other specified health status (08/21/23) Objective Data Objective Data Vital Signs: Vital Signs Temp Pulse Resp BP Pulse Ox O2 Del Method 98.1 F 94 18 149/66 H 98 Room Air 08/22/23 05:28 08/22/23 05:28 08/22/23 05:28 08/22/23 05:28 08/22/23 05:28 08/22/23 07:50 Oxygen Delivery Method Room Air Weight: 341 lb 14.991 oz Body Mass Index (BMI) 42.7 Intake & Output: Intake and Output for Last 24 Hours 08/20/23 08/21/23 08/22/23 23:59 23:59 23:59 Intake Total 590 / 590 50 / 50 Balance 590 / 590 50 / 50 Lab / Micro Data 08/22/23 07:00 08/22/23 07:00 Labs: Laboratory Results - last 24 hr 08/21/23 13:39: WBC 3.3 L, RBC 3.29 L, Hgb 9.4 L, Hct 29.4 L, MCV 89.4, MCH 28.6, MCHC 32.0, RDW Std Deviation 55.8 H, RDW Coeff of Ramya 17.2 H, Plt Count 63 L, MPV 11.0, Immature Gran % (Auto) 0.300, Neut % (Auto) 55.0, Lymph % (Auto) 27.2, Esmeralda % (Auto) 10.3 H, Eos % (Auto) 6.3 H, Baso % (Auto) 0.9, Absolute Neuts (auto) 1.8 L, Absolute Lymphs (auto) 0.90, Nucleated RBC % 0, Sodium 139, Potassium 3.6, Chloride 106, Carbon Dioxide 26.0, Anion Gap 7, BUN 8, Creatinine 0.90, Est GFR (MDRD) Af Amer 116, Est GFR (MDRD) Non-Af 96, BUN/Creatinine Ratio 8.9 L, Glucose 192 H, Calcium 7.7 L 08/21/23 18:07: POC Glucose 112 H 08/21/23 21:51: POC Glucose 187 H 08/22/23 06:17: POC Glucose 99 08/22/23 07:00: WBC 3.2 L, RBC 3.36 L, Hgb 9.6 L, Hct 30.3 L, MCV 90.2, MCH 28.6, MCHC 31.7 L, RDW Std Deviation 58.4 H, RDW Coeff of Ramya 17.8 H, Plt Count 67 L, MPV 10.9, Immature Gran % (Auto) 0.300, Neut % (Auto) 47.3, Lymph % (Auto) 35.6, Esmeralda % (Auto) 9.2, Eos % (Auto) 6.3 H, Baso % (Auto) 1.3 H, Absolute Neuts (auto) 1.5 L, Absolute Lymphs (auto) 1.12, Nucleated RBC % 0, Sodium 140, Potassium 4.0, Chloride 110 H, Carbon Dioxide 25.0, Anion Gap 5, BUN 8, Creatinine 0.80, Estim Creat Clear Calc 133.50, Est GFR (MDRD) Af Amer 132, Est GFR (MDRD) Non-Af 109, BUN/Creatinine Ratio 10.0, Glucose 120 H, Calcium 8.2 L Radiography Diagnostic Testing: Radiology Impression Ankle X-Ray 08/21/23 13:45 IMPRESSION: Diffuse soft tissue swelling. 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 Complain of pain over the medial malleolus deep inside. Denies any trauma injury or ankle rotation. Denies smoking. Quit smoking October 2011, 2 pack years of smoking. General: Alert, Oriented x3, Cooperative HEENT: Atraumatic, PERRLA, EOMI, Normocephalic Oral: Oral mucosa moist. No Gingival or Mucosal Lesions/ Ulcerations Neck: Supple, No JVD, Negative Carotid Bruits Lungs: Air entry diminished in bilateral lung bases. No crepitation/rhonchi Cardiovascular: Regular rate, Regular Rhythm, Normal S1, Normal S2, No murmurs Abdomen: Bowel Sounds Present, Soft, Non Tender, Non-Distended : No renal angle tenderness. No suprapubic tenderness. Extremities: Tenderness present over medial malleolus. Mild reactive edema around medial illness. Capillary Refill Less than 3 Seconds Skin: minimal erythema on the medial aspect of his left foot up to his ankle Musculoskeletal: No Tenderness to Palpation of Joints or Extremities Neurological: Cranial nerves II-XII grossly intact, DTR 2+/4. No acute focal neurological deficit. Psych/Mental Status: Normal Affect, Appropriate. Assessment & Plan Assessment/Plan (1) Failure of outpatient treatment: (2) Cellulitis of left lower extremity: PLAN: Plan 48-year-old gentleman being admitted for pain swelling redness of left lower extremity which she felt like prior episode of cellulitis. It is started on medial left foot and ankle and progressed proximally to knee. Patient is on doxycycline at home for past 4 days. Patient had fever and chills up to 203 Fahrenheit in first 2 days. Patient has bilateral lower extremity edema with chronic venous insufficiency and recurrent cellulitis . 1. Left lower extremity cellulitis with failure of outpatient therapy: Patient was started on IV Zosyn in the ED and continued. Vancomycin added. MRSA nasal screen ordered. I have suspicion that patient might have gout although denies any prior history of gout. Uric acid and CRP ordered. X-ray of the ankle injury reviewed shows soft tissue swelling but no bony involvement. No external wounds. Labs reviewed. Mild leukopenia but seems chronic from May 2023. Mild normocytic normochromic anemia. MRSA nasal screen ordered. Vancomycin added. 2. 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 ? He states that he has had DVTs in the past cannot take any blood thinners secondary to his cirrhosis and varices. On PPI Patient had mild hyperbilirubinemia in the past 3.29 May 2023 but most recent 2.2. No liver chemistry during this admission. liver chemistry ordered. 3. HTN ? Blood pressures are in acceptable range. Continue home blood pressure medications when verified monitor and make adjustments as necessary 4. DM2 1800 diabetic diet. A1c ordered.Glucose was high during admission 192 but in the morning 120. Last A1c 6.3 in May 2021 ? Continue with sliding scale insulin ? Accu-Cheks ACHS monitor make adjustments as necessary 5. Anxiety/depression ? Continue with his home medications when verified DVT: SCDs Clinical Impression(s) from Imaging Studies Ankle X-Ray 08/21/23 13:45 IMPRESSION: Diffuse soft tissue swelling. Charges/Coding Visit Charges Inpatient E&M: 24145 Subs Hosp L2
[2023-08-22 09:02] LABS: AST(SGOT) 30 U/L (15-37); Alanine Aminotransfer ALT/SGPT 23 U/L (16-61); Albumin, Serum 2.6 g/dL (3.2-5.0); Alkaline Phosphatase 120 U/L (45-117); Bilirubin, Direct 0.82 mg/dL (0.00-0.30); GGTP 57 U/L (15-85); Globulin 3.6 g/dL (2.2-4.2); Protein, Total 6.2 g/dL (6.4-8.2)
--- NOTE | 2023-08-22 09:15 | VDLE_ITS ---
Reason For Study: Pain LLE Procedure LEFT This is a venous duplex using B-mode, color CFV is compressible, spontaneous, phasic, flow and spectral Doppler. competent, and demonstrates normal Exam performed portable in patient room. augmentation. A preliminary report was called and/or faxed FV is compressible, spontaneous, phasic, to Bianca DEL CID. competent and demonstrates normal augmentation. POP V is compressible, spontaneous, phasic, competent and demonstrates normal augmentation. T/P Trunk is compressible. PTV is compressible. LT PerV is compressible. Lt GSV absent s/p EVLA Lymph nodes noted Lt Groin measuring 1.01cm x 2.61cm and 1.02cm x 2.07cm. VL/Venous Duplex US, Unilateral Interpretation Summary Deep veins of the left lower extremity are patent and compressible segmentally. There is no evidence of left lower extremity deep vein thrombosis. Left great saphenous vein occluded consistent with previous thermal ablation Left inguinal lymph nodes noted measuring 1.01cm x 2.61cm and 1.02cm x 2.07cm. Ordering Physician: Dariel Goel Referring Physician: Omari Box Performed By: Charissa Aj, CYNDI, RVT
[2023-08-22 10:00] VITALS: BP 131/54; PULSE 84; RESP 18; TEMP 36.9; O2SAT 98
--- NOTE | 2023-08-22 10:06 | NURSING ---
Call from Charissa in vascular stating pt was negative for a DVT.
[2023-08-22 10:11] LABS: Hemoglobin A1c 5.4 % (3.8-5.6)
[2023-08-22] MEDS: Vancomycin HCl 2,000 MG in 0.9% Normal Saline (500mL Bag) 500 ML 250 MG IV (10:32)
--- NOTE | 2023-08-22 10:45 | CASEMGMT ---
MARIA EUGENIA BERMUDEZ Assessment: Face to Face with pt for initial transition planning/care coordination assessment. RN AIDAN introduced self and role at [facility], pt voices understanding and consents to assessment. Pt is A&O x4 and answers all questions appropriately at this time. Pt lying in bed in no distress. Care providers, pharmacy, and demographics verified/updated. Admitting Dx: LLE cellulitis PCP:Isauro Specialists:JENIFER Adame for psychiatrist; NAYLA Shah Preferred Pharmacy: [facility] Retail Insurance: [employer] Prescription Benefit: yes LNOK: Carmencita Ceballos, Living Arrangements: Pt lives with and two children in a two story home with FFSU and 3 steps to enter without a rail. Pt reports he is I in ADL's and denies concerns at home. Transportation: Pt drives self and denies concerns with transportation. Pt states he does not go out of the home very often. DME:cane, walker, BGM with sufficient supply of strips and lancets HHC/SNF: Denies hx of Pt states no concerns with going home at time of dc. Pt denies having any open wounds. Pt states no further concerns/needs. CM to follow. Advised pt to ask CM if any further question/concerns/needs arise, voices understanding. Pt Goal: Home Plan: Home
[2023-08-22] MEDS: Insulin Lispro 100 UNIT/ML INSULN.PEN SC ×2 (11:56→20:58)
[2023-08-22 11:59] LABS: Bedside Glucose 158 mg/dL (74-106)
--- NOTE | 2023-08-22 12:02 | PCM.RX.CS ---
Consult Antibiotic Management Pharmacy has been consulted to manage selected antiobiotic: Vancomycin Type of Intervention Type of Consult: New start Suspected Infection Suspected Infection: Skin/Soft tissue Prior Doses of Antibiotics Prior Doses of Antibiotics Received/Current Regimen: Received 2000mg iv x 1 as loading dose on 08.22.23. Labs Labs: Sodium 140 mmol/L (136-145) 08/22/23 07:00 Potassium 4.0 mmol/L (3.5-5.1) 08/22/23 07:00 Chloride 110 mmol/L (98-107) H 08/22/23 07:00 Carbon Dioxide 25.0 mmol/L (21.0-32.0) 08/22/23 07:00 Anion Gap 5 (5-15) 08/22/23 07:00 BUN 8 mg/dL (7-18) 08/22/23 07:00 Creatinine 0.80 mg/dL (0.70-1.30) 08/22/23 07:00 Est GFR (MDRD) Af Amer 132 mL/min (>60) 08/22/23 07:00 Est GFR (MDRD) Non-Af 109 mL/min (>60) 08/22/23 07:00 BUN/Creatinine Ratio 10.0 RATIO (10-20) 08/22/23 07:00 Glucose 120 mg/dL (74-106) H 08/22/23 07:00 Dosing Weight Weight used for dosin kg Estimated Creatinine Clearance Estimated Creatinine Clearance: >120ml/min Goal Trough Goal Trough: 15-20 mcg/mL Pharmacy Plan for Drug Dosing Pharmacy Plan for Drug Dosing: Recommend a starting dose of 1500mg iv q8 beginning 8 hrs after 2000mg loading dose. Trough level ordered for before 4th total dose per protocol.. Pharmacy Service will continue to monitor and adjust dosing as required. Follow-Up Labs Follow-Up Labs: Trough: Vancomycin (08.23.23@0930 before 1000 dose)
[2023-08-22 12:33] LABS: M R Staph aureus DNA By PCR Negative (Negative); Probe Check PASS; Specimen Processing Control PASS
[2023-08-22 15:09] VITALS: BP 143/53; PULSE 92; RESP 18; TEMP 36.8; O2SAT 96
[2023-08-22] MEDS: Tamsulosin HCl 0.4 MG Capsule PO (16:49)
[2023-08-22 17:08] LABS: Bedside Glucose 145 mg/dL (74-106)
[2023-08-22 20:43] VITALS: BP 131/57; PULSE 97; RESP 20; TEMP 36.8; O2SAT 99
[2023-08-22] MEDS: QUEtiapine 25 MG Tablet 50 MG PO (20:57)
[2023-08-22] MEDS: 0.9% Saline Lock 10 ML Syringe IV (21:05)
[2023-08-22 21:34] LABS: Bedside Glucose 151 mg/dL (74-106)
[2023-08-23 04:12] VITALS: BP 138/59; PULSE 90; RESP 16; TEMP 36.4; O2SAT 99
[2023-08-23] MEDS: oxyCODONE 5 MG Tablet PO ×2 (04:15→09:09)
[2023-08-23] MEDS: Piperacil/Tazobactam 3.375 GM in 0.9% Normal Saline (50mL MB+) 50 ML IV (05:29)
[2023-08-23 05:39] LABS: Absolute Lymphocyte Count 0.96 X10^3/uL (0.83-4.51); Absolute Neutrophil Count 1.2 X10^3/uL (2.0-7.7); Basophil# 0.02 X10^3/uL; Basophil% 0.8 % (0-1); Eosinophil# 0.15 X10^3/uL; Eosinophils% 5.9 % (0-5); Hematocrit 29.9 % (40-54); Hemoglobin 9.4 g/dL (13.0-16.5); Lymphocyte # 0.96 X10^3/ul (0.83-4.51); Lymphocyte % 37.5 % (19-41); Mean Corp Hgb Conc 31.4 g/dL (32-36); Mean Corpuscular Hgb 28.6 pg (27.0-32.0); Mean Corpuscular Volume 90.9 fL (80-94); Mean Platelet Vol. 11.2 fl (6.2-12.0); Monocyte# 0.25 X10^3/uL; Monocyte% 9.8 % (0-10); NRBC Flagged by Analyzer 0 % (0-5); Neutrophil # 1.17 X10^3/uL (2.7-7.7); Neutrophil % 45.6 % (47-70); POSITIVE COUNT YES; Platelet Count 64 K/mm3 (150-450); RBC Distribution Width CV 17.3 % (11.6-14.6); RBC Distribution Width SD 57.7 fl (35.1-43.9); Red Blood Count 3.29 M/mm3 (4.6-6.2); White Blood Count 2.6 K/mm3 (4.4-11.0)
[2023-08-23 06:00] LABS: Anion Gap 5 (5-15); BUN 9 mg/dL (7-18); Calcium,Total 8.4 mg/dL (8.5-10.1); Chloride 109 mmol/L (98-107); Creatinine, Serum 0.75 mg/dL (0.70-1.30); EST Glomerular Filtration Rate 118 mL/min (>60); Est Glom Filt Rate - Afr Amer 142 mL/min (>60); Glucose 124 mg/dL (74-106); Potassium 3.9 mmol/L (3.5-5.1); Sodium Level 141 mmol/L (136-145)
[2023-08-23 08:55] VITALS: BP 131/62; PULSE 93; RESP 18; TEMP 37.1; O2SAT 99
[2023-08-23] MEDS: Pantoprazole Sodium 40 MG Tablet PO (09:00)
[2023-08-23] MEDS: AMPHETAMINE PO (09:00)
[2023-08-23] MEDS: DEXTROAMPHETAMINE PO (09:00)
[2023-08-23] MEDS: Gabapentin 300 MG Capsule PO (09:00)
[2023-08-23] MEDS: Lisinopril 40 MG Tablet PO (09:00)
[2023-08-23] MEDS: lamoTRIgine 100 MG Tablet 200 MG PO (09:00)
--- NOTE | 2023-08-23 09:38 | DCINST_ITS ---
Discharge Instructions Diet Discharge Diet: No restrictions Activity Discharge Activity: Return to Normal Activity Weight Bearing Status: Weight bearing as tolerated Dressing / Incision Call your doctor if you observe: Fever of 101 or Higher, Coldness, Increased Pain, Numbness or Tingling, Change in Color, Inability to urinate, Inability to have a bowel movement, Shortness of breath, Dizziness, Fainting spells, Swelling in the ankles, Chest pain, Prolonged hiccupping, Increased palpitations (irregular heartbeat) and Calf discomfort Follow Up Care When: IN 2 WEEKS Test Results: Test results from this visit will be discussed in further detail at your follow- up appointment, if applicable. Discharge Plan Admission Admit Date/Time: 08/21/23 14:37 Primary Reason for Your Visit: Right leg cellulitis, acute on recurrent. Attending Provider: Dariel Goel Primary Care Provider: Omari Box Consulting Providers: Govind Domínguez Discharge Orders/Prescriptions Prescriptions: New cephalexin 500 mg capsule 500 mg PO TID 7 Days Qty: 21 0RF Continued gabapentin 300 MG capsule 300 mg PO BID Rx Instructions: take 300 mg BID tamsulosin 0.4 mg capsule 0.4 mg PO QHS sildenafil 50 mg tablet 50 mg PO X1 PRN (Reason: Erectile Dysfunction) Patient Comments: Take 1 tab. by mouth once daily as needed 1 hour before sexual activity; may take up to 4 hours before sexual activity. lamotrigine 25 mg tablet 100 mg PO QHS Patient Comments: take 1 tablet by mouth every evening for 7 days then 2 tablets by... (REFER TO PRESCRIPTION NOTES). quetiapine 50 mg tablet 50 mg PO QHS omeprazole 40 mg capsule,delayed release(DR/EC) 40 mg PO DAILY dextroamphetamine-amphetamine 15 mg Tablet 15 mg PO BID promethazine 25 mg tablet 25 mg PO Q8H PRN (Reason: NAUSEA/VOMITING) tizanidine 4 mg tablet 4 mg PO Q8H PRN (Reason: MUSCLE SPASMS) lisinopril 40 mg tablet 40 mg PO DAILY metformin 1,000 mg tablet 1,000 mg PO BID lamotrigine 200 mg tablet 200 mg PO DAILY Patient Comments: Take 1 tablet by mouth every morning. Please schedule follow-up appt for further refills methocarbamol 750 mg tablet PO DAILY Referrals / Follow Up: Margarita Ruffin MD [Non-Staff] - Within 2 Weeks (Advised to follow with PCP for MRI if left medial malleolus pain does not go away in 1 week.) Kyle Martinez MD [Med Staff - Active Staff] - Within 1 Month (for recurrent cellulitis) Omari Box MD [Primary Care Provider] - Disposition Disposition (needs filled in before D/C Order can be placed): Home, Self Care
--- NOTE | 2023-08-23 09:44 | DS.PCM_ITS ---
Providers Date of Admission: 08/21/23 Primary Care Physician: Dr. Omari Box MD Reason For Visit: LLE CELLULITIS Diagnosis Discharge Diagnosis (1) Failure of outpatient treatment: Status: Acute Code(s): Z78.9 - Other specified health status (2) Cellulitis of left lower extremity: Status: Acute Code(s): L03.116 - Cellulitis of left lower limb Plan 48-year-old gentleman being admitted for pain swelling redness of left lower extremity which she felt like prior episode of cellulitis. It is started on medial left foot and ankle and progressed proximally to knee. Patient is on doxycycline at home for past 4 days. Patient had fever and chills up to 103 Fahrenheit in first 2 days. Patient has bilateral lower extremity edema with chronic venous insufficiency and recurrent cellulitis . 1. Left lower extremity cellulitis with failure of outpatient therapy: Patient was started on IV Zosyn in the ED and continued. Vancomycin added. MRSA nasal screen ordered. I have suspicion that patient might have gout although denies any prior history of gout. Uric acid and CRP ordered. X-ray of the ankle injury reviewed shows soft tissue swelling but no bony involvement. No external wounds. Labs reviewed. Mild leukopenia but seems chronic from May 2023. Mild normocytic normochromic anemia. MRSA nasal screen ordered. Vancomycin added. 08/23: MRSA nasal screen negative. Patient pain and swelling better and redness resolved. Patient wants to go home. Discharged home Keflex for 7 more days. I talked to give Bactrim but did not feel pressing need in view of MRSA nasal screen negative and also patient has hyperbilirubinemia And borderline weight alkaline phosphatase. 2. 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 ? He states that he has had DVTs in the past cannot take any blood thinners secondary to his cirrhosis and varices. On PPI Patient had mild hyperbilirubinemia in the past 3.29 May 2023 but most recent 2.2. No liver chemistry during this admission. liver chemistry ordered. 08/23: Total bilirubin level 2.1 since baseline's similar to May 2023. Transaminases normal. CRP elevated probably due to cellulitis. Avoid hepatotoxic medications or alcohol therefore another reason for not giving him Bactrim. 3. HTN ? Blood pressures are in acceptable range. Continue home blood pressure medications when verified monitor and make adjustments as necessary 4. DM2 1800 diabetic diet. Glucose was high during admission 192 but in the morning 120. Last A1c 6.3 in May 2021 ? Continue with sliding scale insulin ? Accu-Cheks ACHS 08/23: Blood sugar is controlled. A1c 5.4%. 5. Anxiety/depression ? Continue with his home medications when verified DVT: SCDs Discharge medication reconciliation done. Discharge follow-up instructions completed. Discharge process discussed with the patient and all questions were answered to patient's satisfaction. Follow with PCP in 1 to 2 weeks Total time spent, exact 35 minutes on discharge meds reconciliation, examination, coordination of care with nurses and ancillary staff, review of imaging and blood test and discussion with the patient on follow-up instruct ions. Clinical Impression(s) from Imaging Studies Ankle X-Ray 08/21/23 13:45 IMPRESSION: Diffuse soft tissue swelling. Medications at Discharge Home Medications gabapentin 300 mg capsule 300 mg PO BID NERVE PAIN 02/11/19 tamsulosin 0.4 mg capsule 0.4 mg PO QHS PROSTATE 04/05/21 dextroamphetamine-amphetamine 15 mg tablet 15 mg PO BID ADHD 12/25/21 lamotrigine 25 mg tablet 100 mg PO QHS DEPRESSION 12/25/21 omeprazole 40 mg capsule,delayed release 40 mg PO DAILY GERD 12/25/21 quetiapine 50 mg tablet 50 mg PO QHS MOOD 12/25/21 sildenafil 50 mg tablet 50 mg PO X1 PRN Erectile Dysfunction 12/25/21 lisinopril 40 mg tablet 40 mg PO DAILY BLOOD PRESSURE 06/02/23 metformin 1,000 mg tablet 1,000 mg PO BID DIABETES 06/02/23 promethazine 25 mg tablet 25 mg PO Q8H PRN NAUSEA/VOMITING 06/02/23 tizanidine 4 mg tablet 4 mg PO Q8H PRN MUSCLE SPASMS 06/02/23 lamotrigine 200 mg tablet 200 mg PO DAILY depression 08/21/23 methocarbamol 750 mg tablet mg PO DAILY depression 08/21/23 cephalexin 500 mg capsule 500 mg PO TID 7 days #21 caps 08/23/23 Physical Exam Narrative Seen and examined on the day of discharge. Right medial malleolus lower leg pain tenderness and swelling better. Erythema resolved. Quit smoking October 2011, 2 pack years of smoking. Physical exam General: Alert, Oriented x3, Cooperative HEENT: Atraumatic, PERRLA, EOMI, Normocephalic Oral: Oral mucosa moist. No Gingival or Mucosal Lesions/ Ulcerations Neck: Supple, No JVD, Negative Carotid Bruits Lungs: Air entry diminished in bilateral lung bases. No crepitation/rhonchi Cardiovascular: Regular rate, Regular Rhythm, Normal S1, Normal S2, No murmurs Abdomen: Bowel Sounds Present, Soft, Non Tender, Non-Distended : No renal angle tenderness. No suprapubic tenderness. Extremities: Mild tenderness present over medial malleolus. Induration and antibiotic resolved. Capillary Refill Less than 3 Seconds Skin: Erythema resolved. Musculoskeletal: No Tenderness to Palpation of Joints or Extremities Neurological: Cranial nerves II-XII grossly intact, DTR 2+/4. No acute focal neurological deficit. Psych/Mental Status: Normal Affect, Appropriate. Weight / BMI Weight Weight: 341 lb 14.991 oz Body Mass Index (BMI) 42.7 ABG / Lab / Microbiology Data 08/23/23 04:50 08/23/23 04:50 Laboratory: Laboratory Results - last 24 hr 08/22/23 07:00: Hemoglobin A1c 5.4, Uric Acid 3.0 L, C-React Prot Ext Range 10.50 H 08/22/23 09:47: MRSA (PCR) Negative 08/22/23 11:39: POC Glucose 158 H 08/22/23 16:48: POC Glucose 145 H 08/22/23 20:54: POC Glucose 151 H 08/23/23 04:50: WBC 2.6 L, RBC 3.29 L, Hgb 9.4 L, Hct 29.9 L, MCV 90.9, MCH 28.6, MCHC 31.4 L, RDW Std Deviation 57.7 H, RDW Coeff of Ramya 17.3 H, Plt Count 64 L, MPV 11.2, Immature Gran % (Auto) 0.400, Neut % (Auto) 45.6 L, Lymph % (Auto) 37.5, [place] % (Auto) 9.8, Eos % (Auto) 5.9 H, Baso % (Auto) 0.8, Absolute Neuts (auto) 1.2 L, Absolute Lymphs (auto) 0.96, Nucleated RBC % 0, Sodium 141, Potassium 3.9, Chloride 109 H, Carbon Dioxide 27.0, Anion Gap 5, BUN 9, Creatinine 0.75, Estim Creat Clear Calc 142.40, Est GFR (MDRD) Af Amer 142, Est GFR (MDRD) Non-Af 118, BUN/Creatinine Ratio 12.0, Glucose 124 H, Calcium 8.4 L D/C Instructions Discharge Diet: No restrictions Weight Bearing Status: Weight bearing as tolerated Call your doctor if you observe: Fever of 101 or Higher, Coldness, Increased Pain, Numbness or Tingling, Change in Color, Inability to urinate, Inability to have a bowel movement, Shortness of breath, Dizziness, Fainting spells, Swelling in the ankles, Chest pain, Prolonged hiccupping, Increased palpitations (irregular heartbeat) and Calf discomfort When: IN 2 WEEKS Meaningful Use Info Meaningful Use Diagnoses (Choose all that apply): None applicable Discharge Plan Admission Admit Date/Time: 08/21/23 14:37 Primary Reason for Your Visit: Right leg cellulitis, acute on recurrent. Attending Provider: Dariel Goel Primary Care Provider: Omari Box Consulting Providers: Govind Domínguez Discharge Orders/Prescriptions Prescriptions: New cephalexin 500 mg capsule 500 mg PO TID 7 Days Qty: 21 0RF Continued gabapentin 300 MG capsule 300 mg PO BID Rx Instructions: take 300 mg BID tamsulosin 0.4 mg capsule 0.4 mg PO QHS sildenafil 50 mg tablet 50 mg PO X1 PRN (Reason: Erectile Dysfunction) Patient Comments: Take 1 tab. by mouth once daily as needed 1 hour before sexual activity; may take up to 4 hours before sexual activity. lamotrigine 25 mg tablet 100 mg PO QHS Patient Comments: take 1 tablet by mouth every evening for 7 days then 2 tablets by... (REFER TO PRESCRIPTION NOTES). quetiapine 50 mg tablet 50 mg PO QHS omeprazole 40 mg capsule,delayed release(DR/EC) 40 mg PO DAILY dextroamphetamine-amphetamine 15 mg Tablet 15 mg PO BID promethazine 25 mg tablet 25 mg PO Q8H PRN (Reason: NAUSEA/VOMITING) tizanidine 4 mg tablet 4 mg PO Q8H PRN (Reason: MUSCLE SPASMS) lisinopril 40 mg tablet 40 mg PO DAILY metformin 1,000 mg tablet 1,000 mg PO BID lamotrigine 200 mg tablet 200 mg PO DAILY Patient Comments: Take 1 tablet by mouth every morning. Please schedule follow-up appt for further refills methocarbamol 750 mg tablet PO DAILY Referrals / Follow Up: Margarita Ruffin MD [Non-Staff] - Within 2 Weeks (Advised to follow with PCP for MRI if left medial malleolus pain does not go away in 1 week.) Kyle Martinez MD [Med Staff - Active Staff] - Within 1 Month (for recurrent cellulitis) Omari Box MD [Primary Care Provider] - Disposition Disposition (needs filled in before D/C Order can be placed): Home, Self Care Charges/Coding Visit Charges Inpatient E&M: 84103 Disch Hosp >30min
[2023-08-23] MEDS: Insulin Lispro 100 UNIT/ML INSULN.PEN SC (11:22)
[2023-08-23 22:07] LABS: Bedside Glucose 183 mg/dL (74-106)
[2023-08-24 10:03] LABS: Vitamin D,25 Hydroxy 13.2 ng/mL
== END 2023-08-23 12:55 | disposition home or self-care (01) | DRG 300 ==
LOC: ED 13:57 → MS3 15:38
PROVIDERS: Admitting Provider Family Medicine; Emergency Provider Emergency Medicine; PCP Internal Medicine; Visit Provider Internal Medicine
DX: E11.59 Type 2 diabetes mellitus with other circulatory complications (principal); D61.818 Other pancytopenia; L03.116 Cellulitis of left lower limb; K75.81 Nonalcoholic steatohepatitis (NASH); E11.65 Type 2 diabetes mellitus with hyperglycemia; Z79.4 Long term (current) use of insulin; F32.A Depression, unspecified; I10 Essential (primary) hypertension; I87.2 Venous insufficiency (chronic) (peripheral); K21.9 Gastro-esophageal reflux disease without esophagitis; F41.9 Anxiety disorder, unspecified; E55.9 Vitamin D deficiency, unspecified; Z87.891 Personal history of nicotine dependence; Z79.899 Other long term (current) drug therapy; Z79.84 Long term (current) use of oral hypoglycemic drugs
CPT/HCPCS: 36415; 73610; 80048; 80076; 82306; 82962; 82977; 83036; 84550; 85025; 86140; 87641; 93971; 99284; J7040; J7050; A4216; J0295

== ENCOUNTER 2023-08-25 07:30 | Emergency (ER) | payer OTHER, SELFPAY ==
[2023-08-25 07:31] VITALS: BP 159/68; PULSE 106; RESP 20; TEMP 36.6; O2SAT 99; BMI 41.8
--- NOTE | 2023-08-25 07:41 | ED.VIS.FALL ---
HPI HPI - Fall History of Present Illness Chief Complaint: Fall Informant: patient Narrative Narrative: Patient presents after accidentally falling out of bed this morning. This patient accidentally rolled out of bed. He landed on a yeti cup that was on the ground and hurt his right anterior lateral ribs. He bumped his head on the nightstand over the left eye but there is only a small bruise. He is not on blood thinners. He has no headache. There is no loss of consciousness. No numbness tingling or weakness. He is not short of breath but it hurts a little bit to breathe. It is not in his abdomen that got hit. 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 Lumbar disc disease with radiculopathy Lumbar disc prolapse with compression radiculopathy Malnutrition Morbid obesity due to excess calories Osteoporosis Other intervertebral disc degeneration, lumbar region Perianal abscess Rheumatoid arthritis Sleep apnea Spinal stenosis of lumbar region with neurogenic claudication Thrombocytopenia Ulcer of left ankle Ulcer of right lower extremity with fat layer exposed Vein disorder Venous insufficiency Home Medications gabapentin 300 mg capsule 300 mg PO BID NERVE PAIN 02/11/19 [History Last Taken 06/02/23] tamsulosin 0.4 mg capsule 0.4 mg PO QHS PROSTATE 04/05/21 [History Last Taken 06/01/23] dextroamphetamine-amphetamine 15 mg tablet 15 mg PO BID ADHD 12/25/21 [History Last Taken 08/20/23] lamotrigine 25 mg tablet 100 mg PO QHS DEPRESSION 12/25/21 [History Last Taken 06/01/23] omeprazole 40 mg capsule,delayed release 40 mg PO DAILY GERD 12/25/21 [History Last Taken 06/02/23] quetiapine 50 mg tablet 50 mg PO QHS MOOD 12/25/21 [History Last Taken 06/01/23] sildenafil 50 mg tablet 50 mg PO X1 PRN Erectile Dysfunction 12/25/21 [History Last Taken Unknown] lisinopril 40 mg tablet 40 mg PO DAILY BLOOD PRESSURE 06/02/23 [History Last Taken 06/02/23] metformin 1,000 mg tablet 1,000 mg PO BID DIABETES 06/02/23 [History Last Taken 06/02/23] promethazine 25 mg tablet 25 mg PO Q8H PRN NAUSEA/VOMITING 06/02/23 [History Last Taken Unknown] tizanidine 4 mg tablet 4 mg PO Q8H PRN MUSCLE SPASMS 06/02/23 [History Last Taken Unknown] lamotrigine 200 mg tablet 200 mg PO DAILY depression 08/21/23 [History Last Taken 08/19/23] methocarbamol 750 mg tablet mg PO DAILY depression 08/21/23 [History Last Taken 08/19/23] cephalexin 500 mg capsule 500 mg PO TID 7 days #21 caps 08/23/23 [Rx Last Taken Unknown] tramadol 50 mg tablet 50 mg PO Q8H PRN pain (scale score 7-10) #10 tabs 08/23/23 [Rx Last Taken Unknown] hydrocodone-acetaminophen 5-325mg 5mg-325mg 1 tab PO Q6H PRN PRN Pain 3 days #10 TABLETS 08/25/23 [Rx Last Taken Unknown] Allergy/AdvReac Type Severity Reaction Status Date / Time No Known Allergies Allergy Verified 08/25/23 07:33 Family History Other COPD (chronic obstructive pulmonary disease) Cancer Hypertension Surgical History history incision and drainage perianal abscess (~10/05/20) History of cholecystectomy History of gastric surgery Status post laparoscopic Lazaro fundoplication Social History household members: spouse and children Smoking Status: Former smoker quit date: 10/12/11 pack-years: 2 Tobacco: How many years used: 20 alcohol intake: never substance use type: does not use ROS ROS ED ROS Narrative Patient was recently in the hospital with cellulitis of his left heel ankle area. But it is continuing to improve. Constitutional Constitutional ED: Denies chills or fever(s) Eyes Eyes: Denies blurry vision, change in vision or diplopia Cardiovascular Cardiovascular: Reports chest pain Respiratory/Chest Respiratory/Chest: Denies cough or dyspnea Gastrointestinal Gastrointestinal: Denies nausea or vomiting Musculoskeletal Musculoskeletal: Denies back pain or neck pain Integumentary Reports other Details: Contusion of her left ; Denies rash Neurologic Neurologic: Denies headache(s), paresthesias or weakness Hematologic/Lymphatic Hematologic/Lymphatic: Denies easy bleeding or easy bruising EXAM Physical Exam Narrative Exam Narrative: CONSTITUTIONAL: Patient is nontoxic in appearance. The patient looks comfortable. HEENT: There is a small contusion of the left eyebrow. But no step-off swelling or tenderness. EYES: No conjunctival injection. No proptosis. No sign of subconjunctival hemorrhage. No involvement of the eye. NECK:No JVD. No stridor. No tenderness or pain with range of motion. CARDIOVASCULAR: Regular rate. Regular rhythm. No notable murmur. No JVD. RESPIRATORY: No respiratory distress. It does hurt when he takes a deep breath. He has left anterior chest wall tenderness. This is clearly up on the ribs not down in the abdomen. There is no subcu air. There is no crepitance or step-off. Saturations are normal at 99% on room air showing no hypoxia. GASTROINTESTINAL: Not distended. Bowel sounds are normal. No tenderness. No guarding. No rebound. No palpable mass. No bruit is heard. GENITOURINARY: No tenderness over the bladder. No CVA tenderness. MUSCULOSKELETAL: Atraumatic. He has the area that was infected written off and marker near the heel. It looks actually quite well. NEUROLOGICAL: Patient is alert and appropriate. No focal deficit noted. SKIN: No noted rashes. No diaphoresis. PSYCHIATRIC: Patient is calm. Mood is appropriate. Const Vital Signs: 08/25/23 07:31 08/25/23 08:00 08/25/23 08:03 Temperature 97.9 F Temperature Source Temporal Pulse Rate 106 H Respiratory Rate 20 H Respiratory Effort Normal Normal Blood Pressure 159/68 H Blood Pressure Mean 98 Pulse Ox 99 Oxygen Delivery Method Room Air Room Air MDM MDM MDM Narrative Medical decision making narrative: My independent interpretation of the patient's 6 view series of the right ribs and chest show no obvious displaced fracture. No pneumothorax. There are diffuse increased markings but some of this may be due to body habitus also. Final reading is pending. Final reading is consistent with above. I will give the patient some meds for pain. Few tramadol recently. I did check online prescribing report. But he has an acute injury. We discussed reasons to return. Radiography Diagnostic Testing: Clinical Impression(s) from Imaging Studies Ribs w/Chest X-Ray 08/25/23 07:55 IMPRESSION: RIBS: Normal x-ray examination of the ribs. CHEST: Normal x-ray examination of the chest. Electronically Signed: Timothy Guo MD at 8:51 EST , Discharge Plan Triage Chief Complaint: Fall ED Provider: Abimael Mackey Dx/Rx/DC Orders Clinical Impression: Accidental fall from bed, Contusion of right chest wall Instructions: ED Chest Wall Contusion Prescriptions: New hydrocodone-acetaminophen [hydrocodone-acetaminophen] 5-325 mg tablet 1 tab PO Q6H PRN PRN (Reason: Pain) 3 Days Qty: 10 0RF No Action gabapentin 300 MG capsule 300 mg PO BID Rx Instructions: take 300 mg BID tamsulosin 0.4 mg capsule 0.4 mg PO QHS sildenafil 50 mg tablet 50 mg PO X1 PRN (Reason: Erectile Dysfunction) Patient Comments: Take 1 tab. by mouth once daily as needed 1 hour before sexual activity; may take up to 4 hours before sexual activity. lamotrigine 25 mg tablet 100 mg PO QHS Patient Comments: take 1 tablet by mouth every evening for 7 days then 2 tablets by... (REFER TO PRESCRIPTION NOTES). quetiapine 50 mg tablet 50 mg PO QHS omeprazole 40 mg capsule,delayed release(DR/EC) 40 mg PO DAILY dextroamphetamine-amphetamine 15 mg Tablet 15 mg PO BID promethazine 25 mg tablet 25 mg PO Q8H PRN (Reason: NAUSEA/VOMITING) tizanidine 4 mg tablet 4 mg PO Q8H PRN (Reason: MUSCLE SPASMS) lisinopril 40 mg tablet 40 mg PO DAILY metformin 1,000 mg tablet 1,000 mg PO BID lamotrigine 200 mg tablet 200 mg PO DAILY Patient Comments: Take 1 tablet by mouth every morning. Please schedule follow-up appt for further refills methocarbamol 750 mg tablet PO DAILY cephalexin 500 mg capsule 500 mg PO TID 7 Days Qty: 21 0RF tramadol 50 mg tablet 50 mg PO Q8H PRN (Reason: pain (scale score 7-10)) Qty: 10 0RF Primary Care Provider: Omari Box Referrals: Omari Box MD [Primary Care Provider] - 3-5 Days Disposition Disposition: Home, Self Care
--- NOTE | 2023-08-25 07:55 | RAD_ITS ---
STUDY: X-RAY - UNILATERAL RIBS ( RIGHT ) WITH CHEST REASON FOR EXAM: Male, 48 years old. Right anterior rib pain following a fall. TECHNIQUE - RIBS: 4 view(s) of the ribs. TECHNIQUE - CHEST: Single PA view of the chest. COMPARISON: Comparison is made with prior chest radiograph dated January 24, 2023. FINDINGS - RIBS: Normal visualized ribs without a demonstrated fracture. FINDINGS - CHEST: The lungs are clear and expanded. There is no demonstrated pleural abnormality. Normal size heart. Normal mediastinum and akil. Normal visualized pulmonary arteries. Normal visualized aortic arch and descending thoracic aorta. Normal visualized thoracic spine. Normal visualized ribs, clavicles, and shoulders. There is no demonstrated abnormality of the visualized soft tissue structures of the upper abdomen. RAD/Ribs Uni Min 3V w/PA Chest IMPRESSION: RIBS: Normal x-ray examination of the ribs. CHEST: Normal x-ray examination of the chest. Electronically Signed: Timothy Guo MD at 8:51 EST ,
[2023-08-25] MEDS: oxyCODONE 5 MG Tablet PO (09:23)
== END 2023-08-25 09:32 | disposition home or self-care (01) ==
LOC: ED 09:04
PROVIDERS: Emergency Provider Emergency Medicine; PCP Internal Medicine; Visit Provider Emergency Medicine
DX: S20.211A Contusion of right front wall of thorax, initial encounter (principal); S00.12XA Contusion of left eyelid and periocular area, initial encounter; W06.XXXA Fall from bed, initial encounter; Z87.891 Personal history of nicotine dependence
CPT/HCPCS: 71101; 99283

== ENCOUNTER 2023-08-31 15:11 | Emergency (ER) | payer OTHER, SELFPAY ==
[2023-08-31 15:13] VITALS: BP 141/60; PULSE 81; RESP 16; TEMP 36.6; O2SAT 97
--- NOTE | 2023-08-31 16:26 | EX.ED.DYSGE1 ---
HPI <LALITA Correa - Last Filed: 08/31/23 19:02> History of Present Illness Chief Complaint: GI Bleed Narrative Narrative: Patient is a 48-year-old male with history of Soriano, venous insufficiency, obesity, vascular disease who presents to the emergency department for worsening right rib pain as well as blood in stool. Patient was seen here on August 25, 2023, patient fell out of bed and landed on a yeti cup on his right anterior ribs. He was seen here, x-rays were completed and there was no fracture. Patient states the pain is getting much worse, he also had 1 episode of blood in his stool today. He denies any abdominal pain. Denies any history of hemorrhoids or diverticulitis. Denies any abdominal surgeries. Patient states that the reason why he is here is mostly secondary to pain to his right ribs. 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 Lumbar disc disease with radiculopathy Lumbar disc prolapse with compression radiculopathy Malnutrition Morbid obesity due to excess calories Osteoporosis Other intervertebral disc degeneration, lumbar region Perianal abscess Rheumatoid arthritis Sleep apnea Spinal stenosis of lumbar region with neurogenic claudication Thrombocytopenia Ulcer of left ankle Ulcer of right lower extremity with fat layer exposed Vein disorder Venous insufficiency Home Medications gabapentin 300 mg capsule 300 mg PO BID NERVE PAIN 02/11/19 [History Last Taken 06/02/23] tamsulosin 0.4 mg capsule 0.4 mg PO QHS PROSTATE 04/05/21 [History Last Taken 06/01/23] dextroamphetamine-amphetamine 15 mg tablet 15 mg PO BID ADHD 12/25/21 [History Last Taken 08/20/23] lamotrigine 25 mg tablet 100 mg PO QHS DEPRESSION 12/25/21 [History Last Taken 06/01/23] omeprazole 40 mg capsule,delayed release 40 mg PO DAILY GERD 12/25/21 [History Last Taken 06/02/23] quetiapine 50 mg tablet 50 mg PO QHS MOOD 12/25/21 [History Last Taken 06/01/23] sildenafil 50 mg tablet 50 mg PO X1 PRN Erectile Dysfunction 12/25/21 [History Last Taken Unknown] lisinopril 40 mg tablet 40 mg PO DAILY BLOOD PRESSURE 06/02/23 [History Last Taken 06/02/23] metformin 1,000 mg tablet 1,000 mg PO BID DIABETES 06/02/23 [History Last Taken 06/02/23] promethazine 25 mg tablet 25 mg PO Q8H PRN NAUSEA/VOMITING 06/02/23 [History Last Taken Unknown] tizanidine 4 mg tablet 4 mg PO Q8H PRN MUSCLE SPASMS 06/02/23 [History Last Taken Unknown] lamotrigine 200 mg tablet 200 mg PO DAILY depression 08/21/23 [History Last Taken 08/19/23] methocarbamol 750 mg tablet mg PO DAILY depression 08/21/23 [History Last Taken 08/19/23] cephalexin 500 mg capsule 500 mg PO TID 7 days #21 caps 08/23/23 [Rx Last Taken Unknown] tramadol 50 mg tablet 50 mg PO Q8H PRN pain (scale score 7-10) #10 tabs 08/23/23 [Rx Last Taken Unknown] hydrocodone-acetaminophen 5-325mg 5mg-325mg 1 tab PO Q6H PRN PRN Pain 3 days #10 TABLETS 08/25/23 [Rx Last Taken Unknown] cholecalciferol (vitamin D3) 1,250 mcg (50,000 unit) capsule 50,000 unit PO QWEEK 1 month #4 caps 08/26/23 [Rx Last Taken Unknown] hydrocodone-acetaminophen 5-325mg 5mg-325mg 1 tab PO Q6H PRN PRN Pain 3 days #10 TABLETS 08/31/23 [Rx Last Taken Unknown] Allergy/AdvReac Type Severity Reaction Status Date / Time No Known Allergies Allergy Verified 08/31/23 15:16 Family History Other COPD (chronic obstructive pulmonary disease) Cancer Hypertension Surgical History history incision and drainage perianal abscess (~10/05/20) History of cholecystectomy History of gastric surgery Status post laparoscopic Lazaro fundoplication Social History household members: spouse and children Smoking Status: Former smoker quit date: 10/12/11 pack-years: 2 Tobacco: How many years used: 20 alcohol intake: never substance use type: does not use ROS <LALITA Correa - Last Filed: 08/31/23 19:02> ROS ED ROS Narrative Constitutional: Negative for fever, chills, weight loss, weakness Eyes: Negative for vision loss, vision change, double vision ENT: Negative for any sore throat, ear pain, congestion Cardiovascular: Negative for any chest pain, tightness, palpitations Respiratory: Negative for any cough, sputum production, hemoptysis, dyspnea, dyspnea on exertion, orthopnea Gastrointestinal: Negative for any abdominal pain, nausea, vomiting, diarrhea, constipation,blood in vomit. Positive for blood in stool : Negative for any urinary frequency, dysuria, retention, blood in urine Muscle skeletal: Negative for any myalgias, arthralgias, neck pain. Positive for right anterior rib pain Neurological: Negative for any headache, syncope, numbness or tingling, dizziness Skin: Negative for any rashes, lumps, itching, abrasions, lacerations Psychiatric: Negative for any depression, anxiety, stress, suicidal ideation, homicidal ideation Hematologic: Negative for any easy bruising, excessive bruising, easy bleeding Allergies: Negative for any eczema, hives, rash EXAM <LALITA Correa - Last Filed: 08/31/23 19:02> Physical Exam Narrative Exam Narrative: Vital signs reviewed. Patient looks mildly uncomfortable secondary to right rib pain HEET: Head normocephalic atraumatic, TMs clear bilaterally. Posterior pharynx is clear, moist mucous membranes. Nares clear bilaterally. Neck: Supple with no lymphadenopathy or tenderness. No signs of meningismus. Cardiac: Regular rate and rhythm no murmurs gallops or rubs, equal peripheral pulses bilaterally. Respiratory: Lungs clear to auscultation bilaterally. Positive for chest tenderness just underneath the right breast anterior radiating laterally. Equal breath sounds in all quadrants. No crepitus noted. Abdomen: Soft, nontender, nondistended. No abdominal bruit or pulsatile masses. No hepatosplenomegaly Extremities: No peripheral edema, no signs of gross trauma or deformity. Active full range of motion of all extremities. Neuro: Cranial nerves II through XII intact, no focal neurological deficits. Skin: Clean dry and intact with no rash, purpura, petechiae, vesicles or pustules. Backs/flank: No CVA tenderness, no midline spinal tenderness, no deformity. Psych: Normal mood and affect. No SI, HI or acute psychosis. Rectal: Rectal exam was completed with female nurse physician's aide. There was no evidence of any hemorrhage, there is no dried blood around the anus, there is no evidence of chronic or acute hemorrhoid. I did have slight stool on my finger, this was brown in color. Const Vital Signs: 08/31/23 15:13 08/31/23 17:12 Temperature 97.8 F Temperature Source Temporal Pulse Rate 81 96 Respiratory Rate 16 16 Blood Pressure 141/60 H 141/68 H Blood Pressure Mean 87 92 Pulse Ox 97 99 Oxygen Delivery Method Room Air Room Air Positive well nourished and well developed General Appearance ED: well developed <Dr. Robe Bojorquez DO - Last Filed: 08/31/23 20:10> Physical Exam Const Vital Signs: 08/31/23 15:13 08/31/23 17:12 Temperature 97.8 F Temperature Source Temporal Pulse Rate 81 96 Respiratory Rate 16 16 Blood Pressure 141/60 H 141/68 H Blood Pressure Mean 87 92 Pulse Ox 97 99 Oxygen Delivery Method Room Air Room Air MDM <LALITA Correa - Last Filed: 08/31/23 19:02> MDM Lab Data Labs: Laboratory Results - last 24 hr 08/31/23 08/31/23 16:33 16:55 WBC 2.7 L RBC 3.03 L Hgb 8.9 L Hct 27.7 L MCV 91.4 MCH 29.4 MCHC 32.1 RDW Std Deviation 57.4 H RDW Coeff of Ramya 17.2 H Plt Count 64 L MPV 11.5 Immature Gran % (Auto) 0.400 Neut % (Auto) 56.2 Lymph % (Auto) 28.5 Woods % (Auto) 9.1 Eos % (Auto) 4.7 Baso % (Auto) 1.1 H Absolute Neuts (auto) 1.5 L Absolute Lymphs (auto) 0.78 L Nucleated RBC % 0 Sodium 141 Potassium 3.9 Chloride 110 H Carbon Dioxide 28.0 Anion Gap 3 L BUN 10 Creatinine 0.95 Est GFR (MDRD) Af Amer 108 Est GFR (MDRD) Non-Af 89 BUN/Creatinine Ratio 10.5 Glucose 177 H Calcium 7.8 L Total Bilirubin 2.10 H Direct Bilirubin 0.73 H AST 30 ALT 22 Alkaline Phosphatase 122 H Total Protein 5.9 L Albumin 2.4 L Globulin 3.5 Lipase 35 Urine Color Yellow Urine Clarity Clear Urine pH 5.0 Ur Specific [place] 1.025 Urine Protein 30 H Urine Glucose (UA) 50 H Urine Ketones 5 H Urine Occult Blood 250 H Urine Nitrite Negative Urine Bilirubin 1 H Urine Urobilinogen 1 H Ur Leukocyte Esterase 25 H Urine RBC 10-25 SEEN Urine WBC 0-5 SEEN Ur Squamous Epith Cells 0 SEEN Urine Bacteria 0 SEEN Urine Mucus 0 SEEN Radiography Diagnostic Testing: Clinical Impression(s) from Imaging Studies Chest CT 08/31/23 17:28 IMPRESSION: No definite acute or significant abnormality seen of the chest. Electronically Signed: Marshall Paris MD at 17:50 EST , Treatment and Re-Evaluation :: Patient appears to be in mild discomfort secondary to rib pain, patient appears nontoxic, vital signs are stable. Presenting to the emergency department with ongoing right rib pain after a fall on 25 August, as well as blood in his stool. Differential diagnosis includes diverticulitis, rib fracture, rib contusion, pneumothorax. Patient will receive basic laboratory values concerning that H&H is stable. Patient will receive a CT scan of the chest to ensure there is no rib fracture, pneumothorax. Patient be given IV fluids, Zofran as well as morphine. Patient was stool occult positive. Patient had no bouts here of rectal bleeding. Laboratory values showed leukopenia which is chronic for the patient over the last year into 2021. 2.7 which is baseline. Patient's hemoglobin is 8.9, patient ranges anywhere from 8.7-9.4 over the last several months. Chemistries show blood glucose of 177, alkaline phosphate 122 total protein 5.9 with albumin 2.4. Lipase was negative. Patient did receive a CT scan of the chest concerning for any rib fracture, lung injury. The CT showed no definite acute or significant abnormality seen of the chest. Patient was given a Harpster here secondary to requesting more pain medicine. He states that the morphine did help. At this time, patient's vital signs remained stable. Patient has no evidence of any rib fractures, pneumothorax. Patient's blood levels are baseline. Patient will follow-up with Dr. Christine ramirez. He is instructed return for worsening rectal bleeding, fever, chills, nausea or vomiting. All questions were answered, patient be given a incentive spirometer for home. Patient questions were answered, patient stable for discharge <Dr. Robe Bojorquez, DO - Last Filed: 08/31/23 20:10> [facility] Narrative Medical decision making narrative: I have personally performed a face to face assessment of the patient and have reviewed the BRAVO Note. I performed a substantive portion of the visit including all aspects of the following. My andrews findings include: History: Patient presents with lower rib pain that began after a fall a few days ago. Patient states the pain has been persistent. Patient states it is mainly over the right lower ribs. Patient states it is worse with movement. Patient also admits to an episode of rectal bleeding that became worse today. Patient denies any abdominal pain. Patient denies any nausea or vomiting. Patient denies any fevers or chills. Exam: Vital signs are are stable. Patient is afebrile. Patient is in no acute distress. There is tenderness over the right lower ribs. There is no bony crepitance or step-off. Heart was regular rate and rhythm. Lungs are clear and equal bilaterally. There is good respiratory effort noted. Abdomen is soft. Bowel sounds are normal. There is no tenderness. There is no rebound or guarding noted. Cranial nerves II through XII are intact. There are no focal motor or sensory deficits noted. Medical Decision Making: Differential diagnosis includes lower gastrointestinal bleeding, hemorrhoid, anemia, electrolyte abnormality, pneumonia, occult rib fracture, and pancreatitis. CBC will be obtained to assess for leukocytosis and anemia. Comprehensive metabolic profile will be obtained to assess for electrolyte abnormality and renal function. Lipase will be obtained to assess for pancreatitis. Urinalysis will be obtained to assess for urinary tract infection and hematuria. CBC was reviewed. White blood cell count was 2.7. Hemoglobin was 8.9 and hematocrit was 27.7. Platelets were 64. Comprehensive metabolic profile was reviewed. Total bilirubin was slightly elevated 2.10. Direct bilirubin was 0.73. Alkaline phosphatase was slightly elevated at 122. AST and ALT were within normal limits. Lipase was reviewed and was normal. Urinalysis was reviewed. Occult blood was 250 with 10-25 red blood cells. There is no evidence of urinary tract infection. CT scan of the chest was reviewed. There is no evidence of pneumonia or occult rib fracture. There is no pneumothorax. This was interpreted by the radiologist was also independently reviewed by myself. Patient was advised of his findings. Patient was instructed to follow-up with his primary care physician in 5 to 7 days. Patient was instructed return if worse in any way. Patient understood and was agreeable with the plan. All questions were answered. Lab Data Labs: Laboratory Results - last 24 hr 08/31/23 08/31/23 16:33 16:55 WBC 2.7 L RBC 3.03 L Hgb 8.9 L Hct 27.7 L MCV 91.4 MCH 29.4 MCHC 32.1 RDW Std Deviation 57.4 H RDW Coeff of Ramya 17.2 H Plt Count 64 L MPV 11.5 Immature Gran % (Auto) 0.400 Neut % (Auto) 56.2 Lymph % (Auto) 28.5 Woods % (Auto) 9.1 Eos % (Auto) 4.7 Baso % (Auto) 1.1 H Absolute Neuts (auto) 1.5 L Absolute Lymphs (auto) 0.78 L Nucleated RBC % 0 Sodium 141 Potassium 3.9 Chloride 110 H Carbon Dioxide 28.0 Anion Gap 3 L BUN 10 Creatinine 0.95 Est GFR (MDRD) Af Amer 108 Est GFR (MDRD) Non-Af 89 BUN/Creatinine Ratio 10.5 Glucose 177 H Calcium 7.8 L Total Bilirubin 2.10 H Direct Bilirubin 0.73 H AST 30 ALT 22 Alkaline Phosphatase 122 H Total Protein 5.9 L Albumin 2.4 L Globulin 3.5 Lipase 35 Urine Color Yellow Urine Clarity Clear Urine pH 5.0 Ur Specific [place] 1.025 Urine Protein 30 H Urine Glucose (UA) 50 H Urine Ketones 5 H Urine Occult Blood 250 H Urine Nitrite Negative Urine Bilirubin 1 H Urine Urobilinogen 1 H Ur Leukocyte Esterase 25 H Urine RBC 10-25 SEEN Urine WBC 0-5 SEEN Ur Squamous Epith Cells 0 SEEN Urine Bacteria 0 SEEN Urine Mucus 0 SEEN Radiography Diagnostic Testing: Clinical Impression(s) from Imaging Studies Chest CT 08/31/23 17:28 IMPRESSION: No definite acute or significant abnormality seen of the chest. Electronically Signed: Marshall Paris MD at 17:50 EST , Discharge Plan Triage Chief Complaint: GI Bleed Other Complaint: Chest Other ED Midlevel Provider: Warren Kang ED Provider: Robe Bojorquez Dx/Rx/DC Orders Prescriptions: No Action gabapentin 300 MG capsule 300 mg PO BID Rx Instructions: take 300 mg BID tamsulosin 0.4 mg capsule 0.4 mg PO QHS sildenafil 50 mg tablet 50 mg PO X1 PRN (Reason: Erectile Dysfunction) Patient Comments: Take 1 tab. by mouth once daily as needed 1 hour before sexual activity; may take up to 4 hours before sexual activity. lamotrigine 25 mg tablet 100 mg PO QHS Patient Comments: take 1 tablet by mouth every evening for 7 days then 2 tablets by... (REFER TO PRESCRIPTION NOTES). quetiapine 50 mg tablet 50 mg PO QHS omeprazole 40 mg capsule,delayed release(DR/EC) 40 mg PO DAILY dextroamphetamine-amphetamine 15 mg Tablet 15 mg PO BID promethazine 25 mg tablet 25 mg PO Q8H PRN (Reason: NAUSEA/VOMITING) tizanidine 4 mg tablet 4 mg PO Q8H PRN (Reason: MUSCLE SPASMS) lisinopril 40 mg tablet 40 mg PO DAILY metformin 1,000 mg tablet 1,000 mg PO BID hydrocodone-acetaminophen [hydrocodone-acetaminophen] 5-325 mg tablet 1 tab PO Q6H PRN PRN (Reason: Pain) 3 Days Qty: 10 0RF lamotrigine 200 mg tablet 200 mg PO DAILY Patient Comments: Take 1 tablet by mouth every morning. Please schedule follow-up appt for further refills methocarbamol 750 mg tablet PO DAILY cephalexin 500 mg capsule 500 mg PO TID 7 Days Qty: 21 0RF tramadol 50 mg tablet 50 mg PO Q8H PRN (Reason: pain (scale score 7-10)) Qty: 10 0RF cholecalciferol (vitamin D3) 1,250 mcg (50,000 unit) capsule 50,000 unit PO QWEEK 30 Days Qty: 4 1RF Primary Care Provider: Omari Box Referrals: Omari Box MD [Primary Care Provider] -
[2023-08-31] MEDS: Ondansetron 4 MG/2 ML Vial IV (16:40)
[2023-08-31] MEDS: 0.9% Normal Saline (1000mL) 1,000 ML 1000 ML IV (16:40)
[2023-08-31] MEDS: Morphine 4 MG/ML Syringe IV (16:40)
[2023-08-31 17:00] LABS: Bacteria 0 SEEN /hpf (None Seen); Mucous, Urine 0 SEEN /hpf (<or=2+); Squamous Epithelial Cells - UA 0 SEEN /hpf (0-5)
[2023-08-31 17:01] LABS: Absolute Lymphocyte Count 0.78 X10^3/uL (0.83-4.51); Absolute Neutrophil Count 1.5 X10^3/uL (2.0-7.7); Basophil# 0.03 X10^3/uL; Basophil% 1.1 % (0-1); Eosinophil# 0.13 X10^3/uL; Eosinophils% 4.7 % (0-5); Hematocrit 27.7 % (40-54); Hemoglobin 8.9 g/dL (13.0-16.5); Lymphocyte # 0.78 X10^3/ul (0.83-4.51); Lymphocyte % 28.5 % (19-41); Mean Corp Hgb Conc 32.1 g/dL (32-36); Mean Corpuscular Hgb 29.4 pg (27.0-32.0); Mean Corpuscular Volume 91.4 fL (80-94); Mean Platelet Vol. 11.5 fl (6.2-12.0); Monocyte# 0.25 X10^3/uL; Monocyte% 9.1 % (0-10); NRBC Flagged by Analyzer 0 % (0-5); Neutrophil # 1.54 X10^3/uL (2.7-7.7); Neutrophil % 56.2 % (47-70); POSITIVE COUNT YES; Platelet Count 64 K/mm3 (150-450); RBC Distribution Width CV 17.2 % (11.6-14.6); RBC Distribution Width SD 57.4 fl (35.1-43.9); Red Blood Count 3.03 M/mm3 (4.6-6.2); White Blood Count 2.7 K/mm3 (4.4-11.0)
[2023-08-31 17:11] LABS: AST(SGOT) 30 U/L (15-37); Alanine Aminotransfer ALT/SGPT 22 U/L (16-61); Albumin, Serum 2.4 g/dL (3.2-5.0); Alkaline Phosphatase 122 U/L (45-117); Anion Gap 3 (5-15); BUN 10 mg/dL (7-18); BUN/Creat Ratio 10.5 RATIO (10-20); Bilirubin, Direct 0.73 mg/dL (0.00-0.30); Calcium,Total 7.8 mg/dL (8.5-10.1); Chloride 110 mmol/L (98-107); Creatinine, Serum 0.95 mg/dL (0.70-1.30); EST Glomerular Filtration Rate 89 mL/min (>60); Est Glom Filt Rate - Afr Amer 108 mL/min (>60); Globulin 3.5 g/dL (2.2-4.2); Glucose 177 mg/dL (74-106); Lipase 35 U/L (13-75); Potassium 3.9 mmol/L (3.5-5.1); Protein, Total 5.9 g/dL (6.4-8.2); Sodium Level 141 mmol/L (136-145)
[2023-08-31 17:12] VITALS: BP 141/68; PULSE 96; RESP 16; O2SAT 99
[2023-08-31 17:21] LABS: Color, Urine Yellow (Yellow); Glucose, Dipstick 50 mg/dl (Normal); Ketone-Dipstick 5 mg/dl (Negative); Leukocyte Esterase-Dipstick 25 /ul (Negative); Nitrite-Dipstick Negative (Negative); Occult Blood-Urine 250 /ul (Negative); Protein-Dipstick 30 mg/dl (Negative); Specific Gravity, Urine 1.025 (1.002-1.030); Urine Clarity Clear (Clear); Urine Urobilinogen 1 mg/dl (Normal)
[2023-08-31 17:23] LABS: Urine Bilirubin Dipstick 1 mg/dL (Negative)
[2023-08-31 17:28] LABS: Red Blood Cells-Urine 10-25 SEEN /hpf (0-5)
--- NOTE | 2023-08-31 17:28 | CT_ITS ---
INDICATION: rib injury EXAMINATION: CT CHEST WITHOUT CONTRAST - CT Chest W/O Contrast Injection TECHNIQUE: Helically acquired images were obtained of the chest. A radiation dose optimization technique was used for this scan. IV Contrast dosage and agent: None. COMPARISON: None. FINDINGS: LUNGS, PLEURA AND LARGE AIRWAYS: No masses, consolidation, or edema. No pleural effusion or thickening. No pneumothorax. THYROID: No thyroid lesions. HEART AND PERICARDIUM: Heart size is normal. No pericardial effusion. CORONARY ARTERIES: Coronary artery calcification is not seen. VESSELS: Thoracic aorta is not dilated. MEDIASTINUM AND SHERLYN: Although no gross mediastinal or hilar mass or adenopathy is seen, adenopathy is difficult to exclude without IV contrast was not given. Esophagus is unremarkable. No hiatal hernia. UPPER ABDOMEN: There is splenomegaly, but no definite acute pathology. BONES: No suspicious lytic or blastic abnormality. CT/Chest without Contrast IMPRESSION: No definite acute or significant abnormality seen of the chest. Electronically Signed: Marshall Paris MD at 17:50 EST ,
[2023-08-31 17:29] LABS: White Blood Cells 0-5 SEEN /hpf (0-5)
[2023-08-31] MEDS: HYDROcodone Bitartrate/Apap 5/325 Tablet PO (18:59)
[2023-08-31 19:00] VITALS: BP 134/92; RESP 16; O2SAT 97
== END 2023-08-31 19:48 | disposition home or self-care (01) ==
PROVIDERS: Nurse Practitioner; Emergency Provider Emergency Medicine; PCP Internal Medicine; Visit Provider Emergency Medicine
DX: K92.2 Gastrointestinal hemorrhage, unspecified (principal); E66.01 Morbid (severe) obesity due to excess calories; Z87.891 Personal history of nicotine dependence; R07.81 Pleurodynia
CPT/HCPCS: 71250; 80048; 80076; 81001; 82274; 83690; 85025; 96361; 96374; 96375; 99284; J7030; A4216; J2405

== ENCOUNTER 2023-09-11 12:55 | Emergency (ER) | payer OTHER, SELFPAY ==
[2023-09-11] VITALS (7 sets, daily range): BP systolic 145–181; BP diastolic 64–88; PULSE 102–107; RESP 18–28; TEMP 36.6–37.2; O2SAT 95–99; BMI 42.0
--- NOTE | 2023-09-11 14:02 | ED.VIS.GI ---
HPI HPI - GI History of Present Illness Chief Complaint: Abd Pain Detail of Chief Complaint: Right-sided abdominal pain with nausea and vomiting Informant: patient Abdominal Pain/Flank Pain Onset: Today and Yesterday Context: Gradual Onset Timing: Continuous Quality: Aching Location: RUQ Current Severity: Moderate Maximum Severity: Moderate Worsened by: Nothing Relieved by: Nothing Nausea/Vomiting/Emesis GI Symptom: Positive for Nausea and Vomiting Onset: Today and Yesterday Severity: Moderate Diarrhea/Melena/Hematochezia GI Symptom: Positive for Diarrhea Onset: Today Stool Quality: Positive for Loose Severity: Mild Associated Symptoms Associated Symptoms: Negative for Dysuria, Frequency, Hematuria or Urgency Narrative Narrative: 48-year-old male history of fatty liver disease and cirrhosis, diabetes and prior DVT. Has had a prior Lazaro fundoplication for nausea and vomiting and is also had a prior cholecystectomy. Patient states last night he started having right upper quadrant abdominal pain with nausea vomiting. Denies any fever. No dysuria. No significant diarrhea. 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 Lumbar disc disease with radiculopathy Lumbar disc prolapse with compression radiculopathy Malnutrition Morbid obesity due to excess calories Osteoporosis Other intervertebral disc degeneration, lumbar region Perianal abscess Rheumatoid arthritis Sleep apnea Spinal stenosis of lumbar region with neurogenic claudication Thrombocytopenia Ulcer of left ankle Ulcer of right lower extremity with fat layer exposed Vein disorder Venous insufficiency Home Medications gabapentin 300 mg capsule 300 mg PO BID NERVE PAIN 02/11/19 [History Last Taken 06/02/23] tamsulosin 0.4 mg capsule 0.4 mg PO QHS PROSTATE 04/05/21 [History Last Taken 06/01/23] dextroamphetamine-amphetamine 15 mg tablet 15 mg PO BID ADHD 12/25/21 [History Last Taken 08/20/23] lamotrigine 25 mg tablet 100 mg PO QHS DEPRESSION 12/25/21 [History Last Taken 06/01/23] omeprazole 40 mg capsule,delayed release 40 mg PO DAILY GERD 12/25/21 [History Last Taken 06/02/23] quetiapine 50 mg tablet 50 mg PO QHS MOOD 12/25/21 [History Last Taken 06/01/23] sildenafil 50 mg tablet 50 mg PO X1 PRN Erectile Dysfunction 12/25/21 [History Last Taken Unknown] lisinopril 40 mg tablet 40 mg PO DAILY BLOOD PRESSURE 06/02/23 [History Last Taken 06/02/23] metformin 1,000 mg tablet 1,000 mg PO BID DIABETES 06/02/23 [History Last Taken 06/02/23] promethazine 25 mg tablet 25 mg PO Q8H PRN NAUSEA/VOMITING 06/02/23 [History Last Taken Unknown] tizanidine 4 mg tablet 4 mg PO Q8H PRN MUSCLE SPASMS 06/02/23 [History Last Taken Unknown] lamotrigine 200 mg tablet 200 mg PO DAILY depression 08/21/23 [History Last Taken 08/19/23] methocarbamol 750 mg tablet mg PO DAILY depression 08/21/23 [History Last Taken 08/19/23] cephalexin 500 mg capsule 500 mg PO TID 7 days #21 caps 08/23/23 [Rx Last Taken Unknown] tramadol 50 mg tablet 50 mg PO Q8H PRN pain (scale score 7-10) #10 tabs 08/23/23 [Rx Last Taken Unknown] hydrocodone-acetaminophen 5-325mg 5mg-325mg 1 tab PO Q6H PRN PRN Pain 3 days #10 TABLETS 08/25/23 [Rx Last Taken Unknown] cholecalciferol (vitamin D3) 1,250 mcg (50,000 unit) capsule 50,000 unit PO QWEEK 1 month #4 caps 08/26/23 [Rx Last Taken Unknown] hydrocodone-acetaminophen 5-325mg 5mg-325mg 1 tab PO Q6H PRN PRN Pain 3 days #10 TABLETS 08/31/23 [Rx Last Taken Unknown] ondansetron 4 mg disintegrating tablet 4 mg PO Q6H PRN nausea and vomiting #10 tabs 09/11/23 [Rx Last Taken Unknown] Allergy/AdvReac Type Severity Reaction Status Date / Time No Known Allergies Allergy Verified 08/31/23 15:16 Family History Other COPD (chronic obstructive pulmonary disease) Cancer Hypertension Surgical History history incision and drainage perianal abscess (~10/05/20) History of cholecystectomy History of gastric surgery Status post laparoscopic Lazaro fundoplication Social History household members: spouse and children Smoking Status: Current every day smoker tobacco type: cigarettes Tobacco: How many years used: 20 alcohol intake: never substance use type: does not use ROS ROS ED ROS Narrative Nausea vomiting. Right upper quadrant abdominal pain. Review of Systems ROS Unobtainable: Denies due to encephalopathy Constitutional Constitutional ED: Denies chills or fever(s) ENT ENT ED: Denies ear pain Cardiovascular Cardiovascular: Denies chest pain or palpitations Respiratory/Chest Respiratory/Chest: Denies cough or dyspnea Gastrointestinal Gastrointestinal: Reports abdominal pain, nausea and vomiting; Denies constipation Genitourinary Genitourinary ED: Denies dysuria or hematuria Musculoskeletal Musculoskeletal: Denies arthralgias or back pain Integumentary Denies abscess or Abrasions Neurologic Neurologic: Denies headache(s) Psychiatric Psychiatric: Denies anxiety or depression Endocrine Endocrinology: Denies polydipsia, polyphagia or polyuria Hematologic/Lymphatic Hematologic/Lymphatic: Denies easy bleeding or easy bruising Allergic/Immunologic Allergic/Immunologic ED: Denies mouth swelling, tongue swelling or urticaria EXAM Physical Exam Narrative Exam Narrative: 48-year-old male actively nauseated and retching. Vital signs are stable afebrile. H EENT exam unremarkable. Neck nontender. Lungs to auscultation bilaterally. Heart regular rhythm no murmur. Chest were nontender. Abdomen soft mild right upper quadrant tenderness. No Shi sign. Nondistended. Normal bowel sounds. Soft. No hernia or mass. No obstruction. Right lower quadrant and left side abdomen is nontender. No hernia or mass. Moving all 4 extremities. Back nontender. Neurologically is awake and alert. Const Vital Signs: 09/11/23 12:56 09/11/23 12:58 09/11/23 14:00 Temperature 99 F 97.9 F Temperature Source Temporal Temporal Pulse Rate 106 H 102 H Respiratory Rate 22 H 20 H 18 Blood Pressure 181/88 H 180/82 H Blood Pressure Mean 119 114 Pulse Ox 99 99 Oxygen Delivery Method Room Air Room Air Room Air 09/11/23 14:05 09/11/23 15:49 09/11/23 16:03 Temperature 97.9 F Temperature Source Temporal Pulse Rate 107 H 104 H 105 H Respiratory Rate 21 H 20 H 27 H Blood Pressure 145/64 H 147/64 H 167/69 H Blood Pressure Mean 91 91 101 Pulse Ox 97 96 97 Oxygen Delivery Method Room Air Room Air Room Air Positive well nourished, well developed and obese; Negative for cachectic, contractures or unkempt General Appearance ED: well developed and NAD; Negative for unkempt, cachectic, contractures or pallor Nutritional Appearance: obese; Negative for cachectic HEENT Reports moist mucous membranes normocephalic and atraumatic; Negative for trauma or tenderness Eyes PERRL and EOMs intact bilaterally General Eye ED: Negative for pale conjunctiva or scleral icterus Neck no lymphadenopathy and no JVD General: Negative for tenderness Carotids: Negative for other Lymph Lymphatic: Negative for other Resp normal respiratory effort and clear to auscultation bilaterally Effort and Inspection: Negative for respiratory distress Auscultation: Negative for rales, rhonchi or wheezes Cardio regular rate, regular rhythm, S1 normal heart sound, S2 normal heart sound and no murmurs Rate: Negative for bradycardia or tachycardic Rhythm: Negative for abnormal rhythm GI non-distended and no masses; Negative for non-tender Inspection: Negative for abdominal distention Auscultation: normoactive bowel sounds Palpation: soft and tender; Negative for guarding Back/Spine no CVA tenderness General Back: Negative for CVA tenderness Cervical Spine: Negative for cervical spine tenderness Thoracic Spine / Upper Back: Negative for thoracic spinal tenderness Lumbar Spine / Lower Back: Negative for lumbar spinal tenderness Coccyx: Negative for other Extremity full ROM General Extremety ED: Negative for edema or tenderness General Extremity: Negative for edema Neuro CN's II-XII intact bilaterally and moves all extremities Sensorium / Orientation: alert, oriented to person, oriented to place and oriented to time; Negative for orientation impaired, confused or lethargic Motor Exam: strength 5/5 throughout Psych mental status grossly normal and thought process normal Appearance: Negative for unkempt Attitude: No agitated Mood & Affect: Negative for depressed, anxious or tearful Skin no wounds General Skin Exam: Negative for jaundice or pallor Lesions: no lesions Rashes: no rashes Trauma: Negative for abrasion Nails: Negative for discolored MDM MDM MDM Narrative Medical decision making narrative: 48-year-old male right upper quadrant abdominal pain with nausea vomiting. Prior cholecystectomy. Prior Niesen fundoplication. History of cirrhosis and fatty liver. Patient will be treated with IV fluids, Zofran and morphine and screening labs. I do not think he needs any imaging at this time. Repeat exam at 3:05 PM. Patient is showing some improvement of his discomfort after history of morphine and Zofran. Awaiting CAT scan results. His acute labs today are consistent with his chronic pancytopenia. His liver enzymes are not significantly changed. Repeat exam patient doing well at 4:31 PM. He will be discharged home with outpatient follow-up. I do not have a specific cause for his acute on chronic abdominal pain. There is no significant findings on his CAT scan other than his chronic cirrhosis nor on his lab work. History & Record Review Discussion w/independent historian: Patient Additional record(s) reviewed:: Prior inpatient record, Prior outpatient record, Prior ED visit, Prior labs and No prior records Lab Data Attestation: I reviewed the patient's lab results. Lab results narrative: CBC shows a white count of 4.2. H&H 9.9 and 31.1. Consistent with his chronic anemia. Platelet counts are low at 51. The patient has a pancytopenia. CMP shows a gap of 3. Normal BUN of 8 and creatinine 0.9. Glucose 154. Liver enzymes [place] bilirubin 2.5. Alk phos 132. Lipase is normal at 26. Urinalysis shows positive nitrites however the microscopic shows no white cells. No red cells. No bacteria. Labs: Laboratory Results - last 24 hr 09/11/23 09/11/23 13:58 16:01 WBC 4.2 L RBC 3.44 L Hgb 9.9 L Hct 31.1 L MCV 90.4 MCH 28.8 MCHC 31.8 L RDW Std Deviation 54.8 H RDW Coeff of Ramya 16.5 H Plt Count 51 L MPV 10.7 Immature Gran % (Auto) 0.500 Neut % (Auto) 81.5 H Lymph % (Auto) 6.6 L [place] % (Auto) 8.5 Eos % (Auto) 2.4 Baso % (Auto) 0.5 Absolute Neuts (auto) 3.5 Absolute Lymphs (auto) 0.28 L Nucleated RBC % 0 Differential Comment COMMENT Diff Path Review May foll Platelet Estimate MOD DEC Sodium 136 Potassium 4.1 Chloride 106 Carbon Dioxide 27.0 Anion Gap 3 L BUN 8 Creatinine 0.92 Estim Creat Clear Calc 116.09 Est GFR (MDRD) Af Amer 112 Est GFR (MDRD) Non-Af 93 BUN/Creatinine Ratio 8.7 L Glucose 154 H Calcium 8.5 Total Bilirubin 2.50 H AST 31 ALT 20 Alkaline Phosphatase 132 H Total Protein 6.3 L Albumin 2.4 L Globulin 3.9 Albumin/Globulin Ratio 0.6 L Lipase 26 Urine Color Yellow Urine Clarity Sl. Cloudy Urine pH 8.0 Ur Specific [place] 1.015 Urine Protein 500 H Urine Glucose (UA) Normal Urine Ketones 5 H Urine Occult Blood 250 H Urine Nitrite Positive H Urine Bilirubin Negative Urine Urobilinogen 1 H Ur Leukocyte Esterase 25 H Urine RBC > 100 SEEN Urine WBC 0-5 SEEN Ur Squamous Epith Cells 0 SEEN Urine Bacteria 0 SEEN Urine Mucus 0 SEEN Radiography Diagnostic Testing: Clinical Impression(s) from Imaging Studies Abdomen/Pelvis CT 09/11/23 15:08 IMPRESSION: 1. Persistent findings of liver cirrhosis, portal hypertension and cavernous transformation of the portal vein. 2. Anasarca. 3. Small pericardial effusion. Electronically Signed: Jeremy Daily MD at 16:21 EST , Abdominal CAT scan showed chronic changes consistent with his history of liver cirrhosis and portal hypertension. Otherwise chronic changes. No acute abnormality accounting for his pain. Discharge Plan Triage Chief Complaint: Abd Pain ED Provider: Reji Gr Dx/Rx/DC Orders Clinical Impression: Cirrhosis, Chronic anemia, History of diabetes mellitus, Abdominal pain Instructions: Abdominal Pain Prescriptions: New ondansetron 4 mg tablet,disintegrating 4 mg PO Q6H PRN (Reason: nausea and vomiting) Qty: 10 0RF No Action gabapentin 300 MG capsule 300 mg PO BID Rx Instructions: take 300 mg BID tamsulosin 0.4 mg capsule 0.4 mg PO QHS sildenafil 50 mg tablet 50 mg PO X1 PRN (Reason: Erectile Dysfunction) Patient Comments: Take 1 tab. by mouth once daily as needed 1 hour before sexual activity; may take up to 4 hours before sexual activity. lamotrigine 25 mg tablet 100 mg PO QHS Patient Comments: take 1 tablet by mouth every evening for 7 days then 2 tablets by... (REFER TO PRESCRIPTION NOTES). quetiapine 50 mg tablet 50 mg PO QHS omeprazole 40 mg capsule,delayed release(DR/EC) 40 mg PO DAILY dextroamphetamine-amphetamine 15 mg Tablet 15 mg PO BID promethazine 25 mg tablet 25 mg PO Q8H PRN (Reason: NAUSEA/VOMITING) tizanidine 4 mg tablet 4 mg PO Q8H PRN (Reason: MUSCLE SPASMS) lisinopril 40 mg tablet 40 mg PO DAILY metformin 1,000 mg tablet 1,000 mg PO BID hydrocodone-acetaminophen [hydrocodone-acetaminophen] 5-325 mg tablet 1 tab PO Q6H PRN PRN (Reason: Pain) 3 Days Qty: 10 0RF lamotrigine 200 mg tablet 200 mg PO DAILY Patient Comments: Take 1 tablet by mouth every morning. Please schedule follow-up appt for further refills methocarbamol 750 mg tablet PO DAILY cephalexin 500 mg capsule 500 mg PO TID 7 Days Qty: 21 0RF tramadol 50 mg tablet 50 mg PO Q8H PRN (Reason: pain (scale score 7-10)) Qty: 10 0RF cholecalciferol (vitamin D3) 1,250 mcg (50,000 unit) capsule 50,000 unit PO QWEEK 30 Days Qty: 4 1RF hydrocodone-acetaminophen 5-325 mg tablet 1 tab PO Q6H PRN PRN (Reason: Pain) 3 Days Qty: 10 0RF Primary Care Provider: Omari Box Referrals: Omari Box MD [Primary Care Provider] - 3-5 Days if not improving Activity Restrictions/Additional Instructions: Your labs today are your baseline. The CAT scan did not show any signs of anything causing the pain. Follow-up with your primary care physician if not improving. Zofran as needed for nausea. Disposition Disposition: Home, Self Care
[2023-09-11] MEDS: Ondansetron 4 MG/2 ML Vial IV (14:10)
[2023-09-11] MEDS: 0.9% Normal Saline (1000mL) 1,000 ML 1000 ML IV (14:10)
[2023-09-11] MEDS: morphine 8 MG/ML Syringe IV (14:10)
[2023-09-11 14:16] LABS: Absolute Lymphocyte Count 0.28 X10^3/uL (0.83-4.51); Absolute Neutrophil Count 3.5 X10^3/uL (2.0-7.7); Basophil# 0.02 X10^3/uL; Basophil% 0.5 % (0-1); Eosinophils% 2.4 % (0-5); Hematocrit 31.1 % (40-54); Hemoglobin 9.9 g/dL (13.0-16.5); Lymphocyte # 0.28 X10^3/ul (0.83-4.51); Lymphocyte % 6.6 % (19-41); Mean Corp Hgb Conc 31.8 g/dL (32-36); Mean Corpuscular Hgb 28.8 pg (27.0-32.0); Mean Corpuscular Volume 90.4 fL (80-94); Mean Platelet Vol. 10.7 fl (6.2-12.0); Monocyte# 0.36 X10^3/uL; Monocyte% 8.5 % (0-10); NRBC Flagged by Analyzer 0 % (0-5); Neutrophil # 3.46 X10^3/uL (2.7-7.7); Neutrophil % 81.5 % (47-70); POSITIVE COUNT YES; POSITIVE DIFFERENTIAL YES; Platelet Count 51 K/mm3 (150-450); RBC Distribution Width CV 16.5 % (11.6-14.6); RBC Distribution Width SD 54.8 fl (35.1-43.9); Red Blood Count 3.44 M/mm3 (4.6-6.2); White Blood Count 4.2 K/mm3 (4.4-11.0)
[2023-09-11 14:18] LABS: Differential Indicated SCAN CRITERIA MET
[2023-09-11 14:29] LABS: ALB/GLOB Ratio 0.6 RATIO (0.9-2.4); AST(SGOT) 31 U/L (15-37); Alanine Aminotransfer ALT/SGPT 20 U/L (16-61); Albumin, Serum 2.4 g/dL (3.2-5.0); Alkaline Phosphatase 132 U/L (45-117); Anion Gap 3 (5-15); BUN 8 mg/dL (7-18); BUN/Creat Ratio 8.7 RATIO (10-20); Calcium,Total 8.5 mg/dL (8.5-10.1); Chloride 106 mmol/L (98-107); Creatinine, Serum 0.92 mg/dL (0.70-1.30); EST Glomerular Filtration Rate 93 mL/min (>60); Est Glom Filt Rate - Afr Amer 112 mL/min (>60); Estimated Creatinine Clearance 116.09 ml/min; Globulin 3.9 g/dL (2.2-4.2); Glucose 154 mg/dL (74-106); Lipase 26 U/L (13-75); Potassium 4.1 mmol/L (3.5-5.1); Protein, Total 6.3 g/dL (6.4-8.2); Sodium Level 136 mmol/L (136-145)
[2023-09-11 14:45] LABS: Platelet Estimate MOD DEC (ADEQ)
--- NOTE | 2023-09-11 15:08 | CT_ITS ---
EXAM: CT ABDOMEN AND PELVIS WITH INTRAVENOUS CONTRAST CLINICAL INDICATION: right sided abd pain TECHNIQUE: Helically acquired images were obtained of the abdomen and pelvis with intravenous contrast. This CT exam was performed using one or more of the following dose reduction techniques: automated exposure control, adjustment of the mA and/or kV according to patient size, and/or use of iterative reconstruction technique. CONTRAST: IV 100mL Isovue-300 COMPARISON: CT abdomen and pelvis 10/05/2020. FINDINGS: LOWER THORAX: Normal. Normal heart size. Small pericardial effusion. ABDOMEN: LIVER: Nodular liver contour suggestive of cirrhosis. GALLBLADDER AND BILE DUCTS: Cholecystectomy clips are in place. PANCREAS: Normal. No focal cystic or solid mass. SPLEEN: Spleen is quite enlarged measuring 20.5 cm in cephalocaudad dimension. ADRENALS: Normal. No nodules. KIDNEYS AND URETERS: Normal. Normal renal size and position. No hydronephrosis. STOMACH AND BOWEL: Deformity of the gastric fundus consistent with fundoplication. PELVIS: APPENDIX: Appendix is visualized and normal in appearance. BLADDER: Normal. REPRODUCTIVE: Unremarkable as visualized. No mass. ABDOMEN and PELVIS: INTRAPERITONEAL SPACE: Normal. No ascites or other fluid collection. No free air. BONES/JOINTS: No suspicious lytic or blastic abnormality. SOFT TISSUES: Edematous changes of the subcutaneous tissues. No discrete abdominal or pelvic wall hernia. 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 The markedly dilated varicose vessels within the retroperitoneum again seen. Abdominal aorta is non-dilated. LYMPH NODES: No adenopathy. CT/Abdomen/Pelvis W IV Cont ONLY IMPRESSION: 1. Persistent findings of liver cirrhosis, portal hypertension and cavernous transformation of the portal vein. 2. Anasarca. 3. Small pericardial effusion. Electronically Signed: Jeremy Daily MD at 16:21 EST ,
[2023-09-11 16:04] LABS: Bacteria 0 SEEN /hpf (None Seen); Mucous, Urine 0 SEEN /hpf (<or=2+); Squamous Epithelial Cells - UA 0 SEEN /hpf (0-5)
[2023-09-11 16:09] LABS: Color, Urine Yellow (Yellow); Glucose, Dipstick Normal (Normal); Ketone-Dipstick 5 mg/dl (Negative); Leukocyte Esterase-Dipstick 25 /ul (Negative); Nitrite-Dipstick Positive (Negative); Occult Blood-Urine 250 /ul (Negative); Protein-Dipstick 500 mg/dl (Negative); Specific Gravity, Urine 1.015 (1.002-1.030); Urine Bilirubin Dipstick Negative (Negative); Urine Clarity Sl. Cloudy (Clear); Urine Urobilinogen 1 mg/dl (Normal)
[2023-09-11 16:26] LABS: Red Blood Cells-Urine > 100 SEEN /hpf (0-5); White Blood Cells 0-5 SEEN /hpf (0-5)
--- NOTE | 2023-09-11 16:43 | NURSING ---
Dr. Gr verbalized knowing of foot issue.
[2023-09-14 13:28] LABS: Pathologist Review Reviewed
== END 2023-09-11 16:48 | disposition home or self-care (01) ==
PROVIDERS: Emergency Provider Emergency Medicine; PCP Internal Medicine; Visit Provider Emergency Medicine
DX: R10.11 Right upper quadrant pain (principal); K74.60 Unspecified cirrhosis of liver; E11.9 Type 2 diabetes mellitus without complications; D64.9 Anemia, unspecified; R11.2 Nausea with vomiting, unspecified; Z90.49 Acquired absence of other specified parts of digestive tract; F32.A Depression, unspecified; Z79.899 Other long term (current) drug therapy; K21.9 Gastro-esophageal reflux disease without esophagitis; Z79.84 Long term (current) use of oral hypoglycemic drugs; F17.210 Nicotine dependence, cigarettes, uncomplicated
CPT/HCPCS: 74177; 80053; 81001; 83690; 85025; 96361; 96374; 96375; 99284; J7030; Q9967; A4216; J2405

== ENCOUNTER 2023-10-24 16:39 | Inpatient (IN) | payer OTHER, SELFPAY ==
[2023-10-24 16:39] VITALS: BP 154/63; PULSE 109; RESP 24; TEMP 36.1; O2SAT 96; BMI 44.4
--- NOTE | 2023-10-24 16:52 | EX.ED.DYSGE1 ---
HPI History of Present Illness Chief Complaint: Cellulitis Informant: patient Narrative Narrative: Patient presents saying that he feels he has cellulitis of his left leg/thigh. Started in the thigh this morning, and he states he has a history of this due to lymphedema both lower extremities and venous insufficiency, so his doctor has given him a prescription for cephalexin to start early whenever this occurs, so he did that this morning. He had fever up to 102 so he took Tylenol to help bring that down, but he was surprised that the redness has seemed to spread very quickly on his lower extremity than usual. He has some pain in his groin as well. He denies any other symptoms that could explain the fever. 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 Lumbar disc disease with radiculopathy Lumbar disc prolapse with compression radiculopathy Malnutrition Morbid obesity due to excess calories Osteoporosis Other intervertebral disc degeneration, lumbar region Perianal abscess Rheumatoid arthritis Sleep apnea Spinal stenosis of lumbar region with neurogenic claudication Thrombocytopenia Ulcer of left ankle Ulcer of right lower extremity with fat layer exposed Vein disorder Venous insufficiency Home Medications gabapentin 300 mg capsule 300 mg PO BID NERVE PAIN 02/11/19 [History Last Taken 06/02/23] tamsulosin 0.4 mg capsule 0.4 mg PO QHS PROSTATE 04/05/21 [History Last Taken 06/01/23] dextroamphetamine-amphetamine 15 mg tablet 15 mg PO BID ADHD 12/25/21 [History Last Taken 08/20/23] lamotrigine 25 mg tablet 100 mg PO QHS DEPRESSION 12/25/21 [History Last Taken 06/01/23] omeprazole 40 mg capsule,delayed release 40 mg PO DAILY GERD 12/25/21 [History Last Taken 06/02/23] quetiapine 50 mg tablet 50 mg PO QHS MOOD 12/25/21 [History Last Taken 06/01/23] sildenafil 50 mg tablet 50 mg PO X1 PRN Erectile Dysfunction 12/25/21 [History Last Taken Unknown] lisinopril 40 mg tablet 40 mg PO DAILY BLOOD PRESSURE 06/02/23 [History Last Taken 06/02/23] metformin 1,000 mg tablet 1,000 mg PO BID DIABETES 06/02/23 [History Last Taken 06/02/23] promethazine 25 mg tablet 25 mg PO Q8H PRN NAUSEA/VOMITING 06/02/23 [History Last Taken Unknown] tizanidine 4 mg tablet 4 mg PO Q8H PRN MUSCLE SPASMS 06/02/23 [History Last Taken Unknown] lamotrigine 200 mg tablet 200 mg PO DAILY depression 08/21/23 [History Last Taken 08/19/23] methocarbamol 750 mg tablet mg PO DAILY depression 08/21/23 [History Last Taken 08/19/23] cephalexin 500 mg capsule 500 mg PO TID 7 days #21 caps 08/23/23 [Rx Last Taken Unknown] tramadol 50 mg tablet 50 mg PO Q8H PRN pain (scale score 7-10) #10 tabs 08/23/23 [Rx Last Taken Unknown] hydrocodone-acetaminophen 5-325mg 5mg-325mg 1 tab PO Q6H PRN PRN Pain 3 days #10 TABLETS 08/25/23 [Rx Last Taken Unknown] cholecalciferol (vitamin D3) 1,250 mcg (50,000 unit) capsule 50,000 unit PO QWEEK 1 month #4 caps 08/26/23 [Rx Last Taken Unknown] hydrocodone-acetaminophen 5-325mg 5mg-325mg 1 tab PO Q6H PRN PRN Pain 3 days #10 TABLETS 08/31/23 [Rx Last Taken Unknown] ondansetron 4 mg disintegrating tablet 4 mg PO Q6H PRN nausea and vomiting #10 tabs 09/11/23 [Rx Last Taken Unknown] Allergy/AdvReac Type Severity Reaction Status Date / Time No Known Allergies Allergy Verified 10/24/23 16:41 Family History Other COPD (chronic obstructive pulmonary disease) Cancer Hypertension Surgical History history incision and drainage perianal abscess (~10/05/20) History of cholecystectomy History of gastric surgery Status post laparoscopic Lazaro fundoplication Social History household members: spouse and children Smoking Status: Current every day smoker tobacco type: cigarettes Tobacco: How many years used: 20 alcohol intake: never substance use type: does not use ROS ROS ED Constitutional Constitutional ED: Reports chills and fever(s) ENT ENT ED: Denies rhinorrhea or sore throat Cardiovascular Cardiovascular: Reports leg edema; Denies chest pain or palpitations Respiratory/Chest Respiratory/Chest: Denies cough or dyspnea Gastrointestinal Gastrointestinal: Denies abdominal pain, diarrhea, nausea or vomiting Genitourinary Genitourinary ED: Denies dysuria or hematuria Musculoskeletal Musculoskeletal: Reports extremity pain; Denies neck pain Integumentary Reports rash; Denies Abrasions or wounds Neurologic Neurologic: Denies headache(s), paresthesias or weakness EXAM Physical Exam Const Vital Signs: 10/24/23 16:39 Temperature 97 F L Temperature Source Temporal Pulse Rate 109 H Respiratory Rate 24 H Blood Pressure 154/63 H Blood Pressure Mean 93 Pulse Ox 96 Oxygen Delivery Method Room Air Positive well nourished, well developed and obese General Appearance ED: well developed and NAD Nutritional Appearance: obese Neck full ROM and supple Chest Wall inspection of chest normal and palpation of chest normal Resp normal respiratory effort and clear to auscultation bilaterally Cardio regular rate and regular rhythm Rate: tachycardic GI normal to inspection, nondistended, normoactive bowel sounds, non-tender and non-distended Back/Spine normal ROM and normal to inspection Extremity Extremity Narrative: Tender blanching erythema without induration or an abscess mainly on the distal 4/5 of the medial left thigh. There is some extension into the proximal medial calf and there is an area on the medial foot that is affected but it does not appear to necessarily be contiguous all the way down to the foot. All compartments are soft and nondistended. Full range of motion. No subcutaneous emphysema palpable. No lymphangitis. Possibly some mild tender left inguinal lymphadenopathy. Neuro oriented x3, no focal motor deficits and no sensory deficits noted Sensorium / Orientation: alert Psych mental status grossly normal and thought process normal Skin no wounds Skin Narrative: Tender erythema left thigh and lower leg see above. No subcutaneous emphysema. Consistent with cellulitis. No palpable abscess or induration. Couple of small superficial wounds within this area, not necessarily the nidus. Sepsis Attestation Sepsis Alert: Yes Sepsis Attestation: Agree w/Sepsis Date exam was performed: 10/24/23 Time exam was performed: 17:40 Possible Source of Sepsis: Skin/soft tissue Sepsis Organ Dysfunction Criteria Present: Platelets <100,000 / uL and Lactic Acid > 2 mmol/L Supportive Findings: acute leukocytosis w/ left shift, tachycardia, SARAI with doubled Cr although Cr not as high as 2.0 Fluid Resuscitation Fluid Resuscitation ordered: Fluids not indicated (not septic shock) MDM MDM MDM Narrative Medical decision making narrative: Immediately after my exam I ronald a line around the borders of the cellulitis as best as I could estimate, patient agreed with the line that I ronald, with a skin marking pen. It is to be cardiac he reportedly had a fever earlier but is not febrile now, clinically he looks a little anxious but stable. Septic workup obtained, including blood cultures and lactate, and a 2 view x-ray of the left thigh to evaluate for subcutaneous air which may be seen with necrotizing fasciitis. Although this is considered, I do not see any definitive evidence of subcutaneous gas production on the 4-view x-ray of the left thigh on my interpretation. He was empirically given IV Ancef 2 g prior to getting any labs back but after cultures obtained, to empirically treat erysipelas caused by strep which is also in the differential diagnosis and is more common. Other labs are noted including lactic acidosis 3.7. He does have a leukocytosis and mild SARAI compared to his usual kidney function. On reevaluation after all of this, there is no extension of the erythema outside of the lines that we ronald. Discussed with hospitalist for admission essentially to treat and observe and rule out necrotizing fasciitis. Lab Data Attestation: I reviewed the patient's lab results. Labs: Laboratory Results - last 24 hr 10/24/23 16:56 WBC 13.5 H RBC 3.15 L Hgb 10.0 L Hct 29.4 L MCV 93.3 MCH 31.7 MCHC 34.0 RDW Std Deviation 56.9 H RDW Coeff of Ramya 16.8 H Plt Count 81 L MPV 11.7 Immature Gran % (Auto) 0.200 Neut % (Auto) 81.7 H Lymph % (Auto) 9.0 L [place] % (Auto) 6.5 Eos % (Auto) 1.9 Baso % (Auto) 0.7 Absolute Neuts (auto) 11.0 H Absolute Lymphs (auto) 1.21 Nucleated RBC % 0 Sodium 140 Potassium 3.6 Chloride 109 H Carbon Dioxide 23.0 Anion Gap 8 BUN 24 H Creatinine 1.77 H Estim Creat Clear Calc 82.33 Est GFR (MDRD) Af Amer 53 L Est GFR (MDRD) Non-Af 44 L BUN/Creatinine Ratio 13.6 Glucose 150 H Lactic Acid 3.7 H* Calcium 7.6 L Radiography Diagnostic Testing: Clinical Impression(s) from Imaging Studies Femur X-Ray 10/24/23 17:15 IMPRESSION: No acute radiographic abnormalities. Electronically Signed: Papi Freeman MD at 17:41 EST , Discharge Plan Dx/Rx/DC Orders Clinical Impression: Cellulitis of left thigh, SARAI (acute kidney injury), Sepsis Disposition Disposition: Acute Care [facility]
--- NOTE | 2023-10-24 17:15 | RAD_ITS ---
INDICATION: pain/infection EXAMINATION/TECHNIQUE: X-RAY - LEFT XR Femur Min 2 Views COMPARISON: None. FINDINGS: No acute fracture or malalignment. No blastic or lytic lesions. No degenerative changes are seen. Mild soft tissue swelling. RAD/Femur Min 2 Views IMPRESSION: No acute radiographic abnormalities. Electronically Signed: Papi Freeman MD at 17:41 EST ,
[2023-10-24 17:31] LABS: Absolute Lymphocyte Count 1.21 X10^3/uL (0.83-4.51); Basophil% 0.7 % (0-1); Eosinophil# 0.26 X10^3/uL; Eosinophils% 1.9 % (0-5); Hematocrit 29.4 % (40-54); Lymphocyte # 1.21 X10^3/ul (0.83-4.51); Mean Corpuscular Hgb 31.7 pg (27.0-32.0); Mean Corpuscular Volume 93.3 fL (80-94); Mean Platelet Vol. 11.7 fl (6.2-12.0); Monocyte# 0.88 X10^3/uL; Monocyte% 6.5 % (0-10); NRBC Flagged by Analyzer 0 % (0-5); Neutrophil % 81.7 % (47-70); POSITIVE COUNT YES; Platelet Count 81 K/mm3 (150-450); RBC Distribution Width CV 16.8 % (11.6-14.6); RBC Distribution Width SD 56.9 fl (35.1-43.9); Red Blood Count 3.15 M/mm3 (4.6-6.2); White Blood Count 13.5 K/mm3 (4.4-11.0)
[2023-10-24] MEDS: Cefazolin 2 GM in 0.9% Normal Saline (100mL Bag) 100 ML IV (17:36)
[2023-10-24 17:37] LABS: Anion Gap 8 (5-15); BUN 24 mg/dL (7-18); BUN/Creat Ratio 13.6 RATIO (10-20); Calcium,Total 7.6 mg/dL (8.5-10.1); Chloride 109 mmol/L (98-107); Creatinine, Serum 1.77 mg/dL (0.70-1.30); EST Glomerular Filtration Rate 44 mL/min (>60); Est Glom Filt Rate - Afr Amer 53 mL/min (>60); Estimated Creatinine Clearance 82.33 ml/min; Glucose 150 mg/dL (74-106); Potassium 3.6 mmol/L (3.5-5.1); Sodium Level 140 mmol/L (136-145)
[2023-10-24 17:41] VITALS: BP 115/60; PULSE 93; RESP 18; TEMP 36.8; O2SAT 98
[2023-10-24 17:47] LABS: Lactic Acid 3.7 mmol/L (0.4-1.9)
--- NOTE | 2023-10-24 18:09 | PCM.HP.STD ---
HPI - General General Date of Admission: 10/24/23 Date of Service: 10/24/23 Chief Complaint: LLE redness, discomfort. 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 with chronic anemia/chronic thrombocytopenia, Rheumatoid arthritis, Hx VTE, GERD s/p Lazaro, Chronic back pain, Former tobacco use who presents to the [facility] ED on 10/24/2023 with redness, discomfort and swelling of his left leg and thigh starting on AM update presentation with unfortunately chronic lymphedema to both lower extremities with venous insufficiency with PCP prescribe Keflex started which she had previously given his history of frequent issues with cellulitis prompting to start this medication however he noted a fever onset up to 102 prompting Tylenol with some improvement however the redness continued to spread very quickly going even into his groin prompting eventual ED evaluation. He notes pain 7-8/10 in severity to the LLE, dull aching and sharp as well. He was given recent morphine and notes some mild improvement but not marked. Workup in the ED included T99, heart rate 109, BP 154/63, respiratory rate 24, 96% on room air, CBC with WBC 13.5, hemoglobin 10, MCV 93.3, platelet 81 with left shift, BMP with chloride 109, BUN/creatinine 24/1.77, GFR 44, glucose 150, lactic acid 3.7, calcium 7.6, plain film of the left femur with no acute radiographically noted abnormalities, blood culture x 2 pending per ED. In the ED patient administered IV cefazolin, IV morphine 4 mg IV x 1. [facility] Medical History (Updated 10/24/23 @ 18:[address] 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 Lumbar disc disease with radiculopathy Lumbar disc prolapse with compression radiculopathy Malnutrition Morbid obesity due to excess calories Osteoporosis Other intervertebral disc degeneration, lumbar region Perianal abscess Rheumatoid arthritis Sleep apnea Spinal stenosis of lumbar region with neurogenic claudication Thrombocytopenia Ulcer of left ankle Ulcer of right lower extremity with fat layer exposed Vein disorder Venous insufficiency Home Medications gabapentin 300 mg capsule 300 mg PO Q8H NERVE PAIN 02/11/19 [History Last Taken 06/02/23] tamsulosin 0.4 mg capsule 0.4 mg PO QHS PROSTATE 04/05/21 [History Last Taken 06/01/23] dextroamphetamine-amphetamine 15 mg tablet 15 mg PO BID ADHD 12/25/21 [History Last Taken 08/20/23] omeprazole 40 mg capsule,delayed release 40 mg PO DAILY GERD 12/25/21 [History Last Taken 06/02/23] sildenafil 50 mg tablet 50 mg PO X1 PRN Erectile Dysfunction 12/25/21 [History Last Taken Unknown] lisinopril 40 mg tablet 40 mg PO DAILY BLOOD PRESSURE 06/02/23 [History Last Taken 06/02/23] metformin 1,000 mg tablet 1,000 mg PO BID DIABETES 06/02/23 [History Last Taken 06/02/23] promethazine 25 mg tablet 25 mg PO Q8H PRN NAUSEA/VOMITING 06/02/23 [History Last Taken Unknown] tizanidine 4 mg tablet 4 mg PO Q8H PRN MUSCLE SPASMS 06/02/23 [History Last Taken Unknown] lamotrigine 200 mg tablet 200 mg PO DAILY depression 08/21/23 [History Last Taken 08/19/23] cephalexin 500 mg capsule 500 mg PO TID 7 days #21 caps 08/23/23 [Rx Last Taken 10/24/23 08:00] tramadol 50 mg tablet 50 mg PO Q8H PRN pain (scale score 7-10) #10 tabs 08/23/23 [Rx Last Taken Unknown] cholecalciferol (vitamin D3) 1,250 mcg (50,000 unit) capsule 50,000 unit PO QWEEK 1 month #4 caps 08/26/23 [Rx Last Taken Unknown] ondansetron 4 mg disintegrating tablet 4 mg PO Q6H PRN nausea and vomiting #10 tabs 09/11/23 [Rx Last Taken Unknown] buspirone 5 mg tablet 5 mg PO TID mood 10/24/23 [History Last Taken Unknown] desvenlafaxine succinate 25 mg tablet,extended release 24 hr 25 mg PO DAILY depression 10/24/23 [History Last Taken Unknown] lorazepam 1 mg tablet 1 mg PO DAILY PRN panic attacks 10/24/23 [History Last Taken Unknown] metoprolol succinate 100 mg tablet,extended release 24 hr 100 mg PO 10/24/23 [History Last Taken Unknown] quetiapine 25 mg tablet 50 mg PO QHS mood 10/24/23 [History Last Taken Unknown] semaglutide 0.25 mg or 0.5 mg (2 mg/3 mL) subcutaneous pen injector (Ozempic) 0.25 mg subcut QWEEK 10/24/23 [History Last Taken 10/21/23] spironolactone 50 mg tablet 50 mg PO DAILY BP 10/24/23 [History Last Taken Unknown] Allergy/AdvReac Type Severity Reaction Status Date / Time No Known Allergies Allergy Verified 10/24/23 16:41 Family History (Updated 10/24/23 @ 18:[address] Catrachita Infante MD) Mother Cancer COPD (chronic obstructive pulmonary disease) Hypertension Father Cancer COPD (chronic obstructive pulmonary disease) Hypertension Surgical History history incision and drainage perianal abscess (~10/05/20) History of cholecystectomy History of gastric surgery Status post laparoscopic Lazaro fundoplication Social History household members: spouse and children Smoking Status: Former smoker quit date: 10/12/11 pack-years: 2 Tobacco: How many years used: 20 alcohol intake: never substance use type: does not use ROS ROS Narrative Admission Review of Systems: CONSTITUTIONAL: No weight loss, + fever, chills, weakness or fatigue. HEENT: Eyes: No visual loss, blurred vision, double vision or yellow sclerae. Ears, Nose, Throat: No hearing loss, sneezing, congestion, runny nose or sore throat. SKIN: No rash or itching, lesions, wounds except + notable LLE redness/warmth/increased edema spreading from lower LLE to upper thigh region. CARDIOVASCULAR: No chest pain, chest pressure or chest discomfort, palpitations, edema, orthopnea, syncopal events. RESPIRATORY: No shortness of breath, cough or sputum, wheezing, hemoptysis. GASTROINTESTINAL: No anorexia, nausea, vomiting or diarrhea, abdominal pain, melena, BRBPR. GENITOURINARY: No dysuria, frequency, urgency or retention. NEUROLOGICAL: + History of leg spasms. No headache, dizziness, syncope, paralysis, ataxia, numbness or tingling in the extremities, focal weakness, change in bowel or bladder control, seizure. MUSCULOSKELETAL: + muscle, back pain, joint pain or stiffness. HEMATOLOGIC: + chronic anemia, no bleeding or easy bruising. LYMPHATICS: No enlarged nodes. No history of splenectomy. PSYCHIATRIC: + History of anxiety and pression with noted panic attacks also. ENDOCRINOLOGIC: No reports of sweating, cold or heat intolerance. No polyuria or polydipsia. ALLERGIES: No history of asthma, hives, eczema or rhinitis. Vital Signs Vital Signs Vital Signs: 10/24/23 16:39 Temperature 97 F L Temperature Source Temporal Pulse Rate 109 H Respiratory Rate 24 H Blood Pressure 154/63 H Blood Pressure Mean 93 Pulse Ox 96 Oxygen Delivery Method Room Air Weight Weight: 356 lb Body Mass Index (BMI) 44.4 Physical Exam Narrative Physical Examination: General: Awake, alert, oriented x 3 and cooperative, seated upright in bed the ED bed, extremely restless, notes ongoing pain to left lower extremity and that morphine did not help this pain well. Skin: Normal color, normal turgor, no icterus, no cyanosis except for occasional pink regions to the extremities, left lower extremity with erythema extending from the proximal left lower extremity to the upper thigh medially with increased warmth complicated by bilateral lower extremity lymphedema HEENT: AT/NC, EOMI, PERRLA, mildly dry MM, goal to discern carotid bruit/JVD given significantly thickened neck. Lungs: Diminished, distant breath sounds, mildly increased respiratory rate but no distress, no rales, ronchi or wheezing. Heart: Mildly tachycardic with regular rhythm; no gallop, rub audible. Abdomen: Soft, morbidly obese, no tenderness to palpation, distant BS, difficult to discern distention and HSM habitus. Extremities: No cyanosis, no clubbing, chronic lower extremity lymphedema, see skin. Neurological: Patient awake, alert, oriented as noted, cognitive function intact; pupils equally reactive to light and accommodation, cranial nerves grossly normal, moving all 4 extremities, no focal deficits, strength moderately to severely globally decreased secondary to acute presentation complaints. Psychiatric: Affect appears extremely restless, anxious, underlying depression and anxiety. Results Lab / Micro Data 10/24/23 16:56 10/24/23 16:56 Labs: Laboratory Results - last 24 hr 10/24/23 16:56: WBC 13.5 H, RBC 3.15 L, Hgb 10.0 L, Hct 29.4 L, MCV 93.3, MCH 31.7, MCHC 34.0, RDW Std Deviation 56.9 H, RDW Coeff of Ramya 16.8 H, Plt Count 81 L, MPV 11.7, Immature Gran % (Auto) 0.200, Neut % (Auto) 81.7 H, Lymph % (Auto) 9.0 L, [place] % (Auto) 6.5, Eos % (Auto) 1.9, Baso % (Auto) 0.7, Absolute Neuts (auto) 11.0 H, Absolute Lymphs (auto) 1.21, Nucleated RBC % 0, Sodium 140, Potassium 3.6, Chloride 109 H, Carbon Dioxide 23.0, Anion Gap 8, BUN 24 H, Creatinine 1.77 H, Estim Creat Clear Calc 82.33, Est GFR (MDRD) Af Amer 53 L, Est GFR (MDRD) Non-Af 44 L, BUN/Creatinine Ratio 13.6, Glucose 150 H, Lactic Acid 3.7 H*, Calcium 7.6 L Imagaing Radiology Impression Femur X-Ray 10/24/23 17:15 IMPRESSION: No acute radiographic abnormalities. 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 with chronic anemia/chronic thrombocytopenia, Rheumatoid arthritis, Hx VTE, GERD s/p Lazaro, Chronic back pain who presents to the [facility] ED on 10/24/2023 with redness, discomfort and swelling of his left leg and thigh starting on AM update presentation with unfortunately chronic lymphedema to both lower extremities with venous insufficiency with PCP prescribe Keflex started which she had previously given his history of frequent issues with cellulitis prompting to start this medication however he noted a fever onset up to 102 prompting Tylenol with some improvement however the redness continued to spread very quickly going even into his groin prompting eventual ED evaluation. #1. Acute LLE Cellulitis with notable tachycardia, lactic acidosis 3.7 and acute kidney injury (not c/w sepsis as lower SOFA/qSOFA scoring): Will admit to MS, given systemic signs of infection with tachycardia, tachypnea, elevated white count, acute kidney injury and significant lactic acidosis to be cautious we will maintain in the interim on IV vancomycin and IV Zosyn for cellulitic order set, will obtain Wound Cx, will obtain Wound MRSA PCR, plan repeat CBC in AM, continue affected extremity elevation above heart when seated and in bed, monitor erythema outline with VS checks, low threshold to obtain duplex US to assure no DVT concurrently. #2. Acute kidney injury: Secondary to acute presentation #1. Admission BUN/Cr 04/11.77, prior baseline creatinine noted to be 0.7-0.9 with most recent 09/11/2023 creatinine 0.92. Will hydrate cautiously given underlying cirrhotic history, hold nephrotoxic medications and repeat chemistry in AM. If no improvement would plan FeNa and renal ultrasound assessment. #3. 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 #4. Chronic lymphedema: Will place neck Girma wraps with bilateral lower extremity elevation. #5. Hypertension: Will closely monitor blood pressure, holding lisinopril given acute kidney injury, will have as needed IV hydralazine in interim. #6. Hyperlipidemia: Given cirrhotic history not on statin therapy, defer to outpatient. #7. Anxiety and depression: We will cautiously continue patient home dose of venlafaxine, Seroquel as well as lamotrigine level but very cautiously given renal function with alteration as needed. Will also continue as needed Ativan for panic attacks in addition to scheduled buspirone but again may need altered pending renal function and continued assessment. #8. Diabetes mellitus type II: Hold oral home regimen, ADA diet, accu checks w/ ISS, given #1 and history of frequent presentation with cellulitis will request hemoglobin A1c. #9. Chronic neuropathy: We will continue patient home gabapentin regimen with renal dosing as needed. #10. Former Tobacco Abuse: Encouraged continued tobacco cessation. #11. Morbid Obesity: Weight loss and lifestyle changes encouraged. #12. ZULEYMA: CPAP nightly. #13. DVT Prophylaxis: Heparin; however, given thrombocytopenia if plt decrease would discontinue. #14. CODE status: Full Code. Charges/Coding Visit Charges Inpatient E&M: 01222 Init Hosp L3
[2023-10-24 18:12] VITALS: BP 120/74; PULSE 90; RESP 14; O2SAT 98
[2023-10-24] MEDS: Morphine 4 MG/ML Syringe IV (18:12)
[2023-10-24 18:54] VITALS: BP 128/52; PULSE 91; RESP 18; O2SAT 100
[2023-10-24] MEDS: Ondansetron 4 MG/2 ML Vial IV (19:19)
[2023-10-24 20:04] VITALS: BMI 44.6
[2023-10-24 20:23] VITALS: O2SAT 97
[2023-10-24] MEDS: 0.9% Normal Saline (1000mL) 1,000 ML 100 ML IV (20:42)
[2023-10-24] MEDS: Vancomycin HCl 2,000 MG in 0.9% Normal Saline (500mL Bag) 500 ML 250 MG IV (20:42)
[2023-10-24 21:13] LABS: Reflex Lactate? Y
[2023-10-24] MEDS: QUEtiapine 25 MG Tablet 50 MG PO (21:41)
[2023-10-24] MEDS: Gabapentin 300 MG Capsule PO (21:41)
[2023-10-24] MEDS: busPIRone 5 MG Tablet PO (21:41)
[2023-10-24] MEDS: HYDROmorphone 0.5 MG/0.5 ML SYRINGE IV (21:41)
[2023-10-24] MEDS: Heparin Injection (Vial) 5,000 UNIT/ML VIAL 5000 UNIT SC (21:42)
[2023-10-24] MEDS: lamoTRIgine 100 MG Tablet PO (21:42)
[2023-10-24] MEDS: Tamsulosin HCl 0.4 MG Capsule 0.400000000000000022 MG PO (21:43)
[2023-10-24 22:04] LABS: Lactic Acid 1.6 mmol/L (0.4-1.9)
--- NOTE | 2023-10-24 22:31 | PCM.RX.CS ---
Consult Antibiotic Management Pharmacy has been consulted to manage selected antibiotic: Vancomycin Type of Intervention Type of Consult: New start Labs Labs: Sodium 140 mmol/L (136-145) 10/24/23 16:56 Potassium 3.6 mmol/L (3.5-5.1) 10/24/23 16:56 Chloride 109 mmol/L (98-107) H 10/24/23 16:56 Carbon Dioxide 23.0 mmol/L (21.0-32.0) 10/24/23 16:56 Anion Gap 8 (5-15) 10/24/23 16:56 BUN 24 mg/dL (7-18) H 10/24/23 16:56 Creatinine 1.77 mg/dL (0.70-1.30) H 10/24/23 16:56 Est GFR (MDRD) Af Amer 53 mL/min (>60) L 10/24/23 16:56 Est GFR (MDRD) Non-Af 44 mL/min (>60) L 10/24/23 16:56 BUN/Creatinine Ratio 13.6 RATIO (10-20) 10/24/23 16:56 Glucose 150 mg/dL (74-106) H 10/24/23 16:56 Dosing Weight Weight used for dosin kg Estimated Creatinine Clearance Estimated Creatinine Clearance: 82.5 Goal Trough Goal Trough: 15-20 mcg/mL Pharmacy Plan for Drug Dosing Pharmacy Plan for Drug Dosing: Pharmacy Service will continue to monitor and adjust dosing as required. Follow-Up Labs Follow-Up Labs: Trough: Vancomycin Date/Time Labs Ordered Labs to be done on [date and time ordered]: 10/26 @ 0831
[2023-10-24] MEDS: Insulin Lispro 100 UNIT/ML INSULN.PEN SC (22:41)
[2023-10-24] MEDS: Piperacil/Tazobactam 3.375 GM in 0.9% Normal Saline (50mL MB+) 50 ML IV (22:42)
--- NOTE | 2023-10-25 01:11 | CPS ---
Patient refuses to wear cpap at home and does not want to wear it at the hospital.
[2023-10-25 02:00] VITALS: BP 165/65; PULSE 100; RESP 18; TEMP 36.4; O2SAT 100
[2023-10-25 02:36] LABS: Bedside Glucose 158 mg/dL (74-106)
[2023-10-25 06:00] VITALS: BMI 44.5
[2023-10-25] MEDS: Piperacil/Tazobactam 3.375 GM in 0.9% Normal Saline (50mL MB+) 50 ML IV ×3 (06:10→22:12)
[2023-10-25] MEDS: busPIRone 5 MG Tablet PO ×3 (06:11→21:06)
[2023-10-25 06:28] LABS: Absolute Lymphocyte Count 0.85 X10^3/uL (0.83-4.51); Absolute Neutrophil Count 3.2 X10^3/uL (2.0-7.7); Basophil# 0.03 X10^3/uL; Basophil% 0.6 % (0-1); Eosinophil# 0.19 X10^3/uL; Hematocrit 26.1 % (40-54); Hemoglobin 8.9 g/dL (13.0-16.5); Lymphocyte # 0.85 X10^3/ul (0.83-4.51); Mean Corp Hgb Conc 34.1 g/dL (32-36); Mean Corpuscular Volume 93.9 fL (80-94); Mean Platelet Vol. 11.2 fl (6.2-12.0); Monocyte# 0.47 X10^3/uL; NRBC Flagged by Analyzer 0 % (0-5); Neutrophil # 3.16 X10^3/uL (2.7-7.7); Neutrophil % 67.2 % (47-70); POSITIVE COUNT YES; Platelet Count 53 K/mm3 (150-450); RBC Distribution Width CV 16.4 % (11.6-14.6); RBC Distribution Width SD 56.4 fl (35.1-43.9); Red Blood Count 2.78 M/mm3 (4.6-6.2); White Blood Count 4.7 K/mm3 (4.4-11.0)
[2023-10-25 06:40] LABS: ALB/GLOB Ratio 0.5 RATIO (0.9-2.4); AST(SGOT) 40 U/L (15-37); Alanine Aminotransfer ALT/SGPT 20 U/L (16-61); Albumin, Serum 1.6 g/dL (3.2-5.0); Alkaline Phosphatase 112 U/L (45-117); Anion Gap 5 (5-15); BUN 25 mg/dL (7-18); BUN/Creat Ratio 16.6 RATIO (10-20); Calcium,Total 7.3 mg/dL (8.5-10.1); Chloride 112 mmol/L (98-107); Creatinine, Serum 1.51 mg/dL (0.70-1.30); EST Glomerular Filtration Rate 52 mL/min (>60); Est Glom Filt Rate - Afr Amer 63 mL/min (>60); Estimated Creatinine Clearance 96.68 ml/min; Globulin 3.3 g/dL (2.2-4.2); Glucose 135 mg/dL (74-106); Potassium 3.7 mmol/L (3.5-5.1); Protein, Total 4.9 g/dL (6.4-8.2); Sodium Level 141 mmol/L (136-145)
[2023-10-25] MEDS: HYDROmorphone 0.5 MG/0.5 ML SYRINGE IV (06:56)
[2023-10-25 07:02] LABS: Bedside Glucose 124 mg/dL (74-106)
[2023-10-25 07:49] VITALS: O2SAT 95
[2023-10-25 08:00] VITALS: BP 154/98; PULSE 112; RESP 18; TEMP 36.9; O2SAT 99
[2023-10-25] MEDS: lamoTRIgine 100 MG Tablet 200 MG PO (08:10)
[2023-10-25] MEDS: Gabapentin 300 MG Capsule PO ×2 (08:10→21:05)
[2023-10-25] MEDS: Pantoprazole Sodium 40 MG Tablet PO (08:10)
[2023-10-25] MEDS: DEXTROAMPHETAMINE PO ×2 (08:11→15:30)
[2023-10-25] MEDS: Heparin Injection (Vial) 5,000 UNIT/ML VIAL 5000 UNIT SC ×2 (08:11→21:06)
[2023-10-25] MEDS: AMPHETAMINE PO ×2 (08:11→15:30)
[2023-10-25] MEDS: 0.9% Normal Saline (1000mL) 1,000 ML 100 ML IV (09:36)
[2023-10-25] MEDS: Ondansetron 4 MG/2 ML Vial IV (09:41)
[2023-10-25] MEDS: 0.9% Saline Lock 10 ML Syringe IV (09:41)
[2023-10-25] MEDS: Vancomycin HCl 2,000 MG in 0.9% Normal Saline (500mL Bag) 500 ML 250 MG IV ×2 (09:46→20:43)
[2023-10-25] MEDS: Insulin Lispro 100 UNIT/ML INSULN.PEN SC ×2 (11:17→22:10)
[2023-10-25] MEDS: oxyCODONE 5 MG Tablet PO ×3 (11:19→21:05)
[2023-10-25 11:34] LABS: Bedside Glucose 205 mg/dL (74-106)
[2023-10-25 14:06] VITALS: BP 137/57; PULSE 113; RESP 18; TEMP 37.1; O2SAT 96
[2023-10-25 16:59] LABS: Bedside Glucose 121 mg/dL (74-106)
--- NOTE | 2023-10-25 18:44 | PN.HOSP_ITS ---
Reason for Visit Reason for Visit: Diagnoses Cellulitis of left lower limb (10/24/23) Acute kidney failure, unspecified (10/24/23) Subjective Subjective Patient was seen and examined today, his white count today was 4.7, Staphylococcus species was detected on the patient's blood PCR, patient is currently on Zosyn and vancomycin. The reddened area over the patient's left inner leg does not look severe today. Objective Data Objective Data Vital Signs: Vital Signs Temp Pulse Resp BP Pulse Ox O2 Del Method 98.8 F 113 H 18 137/57 H 96 Room Air 10/25/23 14:06 10/25/23 14:06 10/25/23 14:06 10/25/23 14:06 10/25/23 14:06 10/25/23 14:06 Oxygen Delivery Method Room Air Weight: 162.4 kg Body Mass Index (BMI) 44.5 Intake & Output: Intake and Output for Last 24 Hours 10/23/23 10/24/23 10/25/23 23:59 23:59 23:59 Intake Total 650 / 950 2340 / 2340 Balance 650 / 950 2340 / 2340 Lab / Micro Data 10/26/23 08:20 10/26/23 08:20 Labs: Laboratory Results - last 24 hr 10/24/23 21:31: Lactic Acid 1.6 10/24/23 22:35: POC Glucose 158 H 10/25/23 05:51: WBC 4.7, RBC 2.78 L, Hgb 8.9 L, Hct 26.1 L, MCV 93.9, MCH 32.0, MCHC 34.1, RDW Std Deviation 56.4 H, RDW Coeff of Ramya 16.4 H, Plt Count 53 L, MPV 11.2, Immature Gran % (Auto) 0.200, Neut % (Auto) 67.2, Lymph % (Auto) 18.0 L, [place] % (Auto) 10.0, Eos % (Auto) 4.0, Baso % (Auto) 0.6, Absolute Neuts (auto) 3.2, Absolute Lymphs (auto) 0.85, Nucleated RBC % 0, Sodium 141, Potassium 3.7, Chloride 112 H, Carbon Dioxide 24.0, Anion Gap 5, BUN 25 H, Creatinine 1.51 H, Estim Creat Clear Calc 96.68, Est GFR (MDRD) Af Amer 63, Est GFR (MDRD) Non-Af 52 L, BUN/Creatinine Ratio 16.6, Glucose 135 H, Calcium 7.3 L, Total Bilirubin 1.90 H, AST 40 H, ALT 20, Alkaline Phosphatase 112, Total Protein 4.9 L, Albumin 1.6 L, Globulin 3.3, Albumin/Globulin Ratio 0.5 L 10/25/23 06:14: POC Glucose 124 H 10/25/23 11:15: POC Glucose 205 H 10/25/23 16:36: POC Glucose 121 H Micro: Microbiology 10/24/23 16:56 Blood Culture (Wb) - Anticubital Left Bacteria Detection (PCR) - Preliminary Staphylococcus aureus 10/24/23 16:56 Blood Culture (Wb) - Anticubital Left Blood Culture - Preliminary Physical Exam Const alert, oriented x3 and no apparent distress Constitutional Narrative: Patient is morbidly obese General Appearance: cooperative, well kempt and well developed Orientation / Consciousness: awake, oriented to person, oriented to place and oriented to time HEENT normocephalic, head/scalp atraumatic and moist oral mucous membranes Eyes PERRL, EOMs intact bilaterally and conjunctivae normal Neck supple, no JVD, thyroid normal and no carotid bruits General: trachea midline Resp normal respiratory effort, no retractions, no use of accessory muscles and clear to auscultation bilaterally Auscultation: Negative for rales, rhonchi or wheezes Cardio regular rate, regular rhythm, S1 normal heart sound, S2 normal heart sound, no murmurs, no rub and no gallops GI normal to inspection, nondistended, normoactive bowel sounds, soft to palpation, non-tender and non-distended GI Narrative: Patient is morbidly obese Extremity Extremity Narrative: There is marked nonpitting edema noted of both lower legs, worse on the left, there is some redness to the inside of the patient's left upper leg extending into the left lower leg proximally Skin Skin Narrative: Patient appears to have some small abrasions over his left leg Neuro oriented x3, CN's II-XII intact bilaterally, moves all extremities, no focal motor deficits and no sensory deficits noted Sensorium / Orientation: awake and alert Speech: speech normal Psych affect normal Assessment & Plan Assessment/Plan (1) Cellulitis of left thigh: PLAN: Plan 1. Left leg cellulitis with staph bacteremia-await culture results, patient remains on Zosyn and vancomycin #2 Acute kidney injury-resolved at this time, patient has significant lower extremity edema and may need to be placed on diuretics briefly, he took Aldactone as an outpatient, he was on Lasix at 1 time. 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 #4 chronic depression-patient is on several psychiatric medications, these will be continued #5 Essential hypertension-patient's lisinopril is being held at this time due to his SARAI, blood pressure appears to be adequately controlled so I will leave him off this medication at this time and reevaluate #6 Type 2 [id number] will continue and he will be given sliding scale insulin as indicated, patient is on Ozempic as an outpatient and metformin-these are being held #7 morbid obesity-complicates care, medical course, recovery, and prognosis #8 chronic neuropathy secondary to diabetes-patient is currently on gabapentin Total clinical time spent by myself addressing the patient's medical issues, reviewing all of his data, and collaborating with patient's care team: 35 min Charges/Coding Visit Charges Inpatient E&M: 46931 Subs Hosp L2
[2023-10-25 20:00] VITALS: BP 143/65; PULSE 102; RESP 18; TEMP 37.2; O2SAT 97
[2023-10-25] MEDS: QUEtiapine 25 MG Tablet 50 MG PO (21:05)
[2023-10-25] MEDS: lamoTRIgine 100 MG Tablet PO (21:05)
[2023-10-25] MEDS: Tamsulosin HCl 0.4 MG Capsule 0.400000000000000022 MG PO (21:06)
[2023-10-25 23:43] LABS: Bedside Glucose 172 mg/dL (74-106)
[2023-10-26] MEDS: oxyCODONE 5 MG Tablet PO ×5 (01:32→19:02)
[2023-10-26 02:00] VITALS: BP 144/66; PULSE 98; RESP 18; TEMP 36.6; O2SAT 97
[2023-10-26] MEDS: Piperacil/Tazobactam 3.375 GM in 0.9% Normal Saline (50mL MB+) 50 ML IV ×3 (05:07→21:09)
[2023-10-26] MEDS: busPIRone 5 MG Tablet PO ×3 (05:07→21:08)
[2023-10-26 06:00] VITALS: BMI 45.3; BMI 46.4
[2023-10-26 06:43] LABS: Bedside Glucose 141 mg/dL (74-106)
[2023-10-26 08:00] VITALS: PULSE 84; RESP 16; O2SAT 99
[2023-10-26] MEDS: AMPHETAMINE PO ×2 (08:24→15:04)
[2023-10-26] MEDS: Heparin Injection (Vial) 5,000 UNIT/ML VIAL 5000 UNIT SC ×2 (08:24→21:09)
[2023-10-26] MEDS: lamoTRIgine 100 MG Tablet 200 MG PO (08:24)
[2023-10-26] MEDS: DEXTROAMPHETAMINE PO ×2 (08:24→15:04)
[2023-10-26] MEDS: Pantoprazole Sodium 40 MG Tablet PO (08:25)
[2023-10-26] MEDS: Gabapentin 300 MG Capsule PO ×2 (08:26→21:24)
[2023-10-26 08:35] VITALS: BP 130/62; PULSE 100; RESP 16; TEMP 36.8; O2SAT 99
[2023-10-26 08:36] LABS: Absolute Lymphocyte Count 1.01 X10^3/uL (0.83-4.51); Basophil# 0.04 X10^3/uL; Basophil% 1.1 % (0-1); Eosinophil# 0.27 X10^3/uL; Eosinophils% 7.2 % (0-5); Hematocrit 27.6 % (40-54); Hemoglobin 9.3 g/dL (13.0-16.5); Lymphocyte # 1.01 X10^3/ul (0.83-4.51); Lymphocyte % 26.9 % (19-41); Mean Corp Hgb Conc 33.7 g/dL (32-36); Mean Corpuscular Hgb 31.3 pg (27.0-32.0); Mean Corpuscular Volume 92.9 fL (80-94); Mean Platelet Vol. 12.4 fl (6.2-12.0); Monocyte# 0.46 X10^3/uL; Monocyte% 12.2 % (0-10); NRBC Flagged by Analyzer 0 % (0-5); Neutrophil # 1.97 X10^3/uL (2.7-7.7); Neutrophil % 52.3 % (47-70); POSITIVE COUNT YES; Platelet Count 59 K/mm3 (150-450); RBC Distribution Width CV 16.2 % (11.6-14.6); RBC Distribution Width SD 55.8 fl (35.1-43.9); Red Blood Count 2.97 M/mm3 (4.6-6.2); White Blood Count 3.8 K/mm3 (4.4-11.0)
[2023-10-26 08:57] LABS: Differential Indicated SCAN CRITERIA MET
[2023-10-26 09:06] LABS: Differential Comment SCANNED
[2023-10-26] MEDS: Acetaminophen 325 MG Tablet 650 MG PO ×2 (10:12→21:24)
[2023-10-26] MEDS: Vancomycin Trough/Random Due 1 LAB MC (10:23)
--- NOTE | 2023-10-26 10:47 | CASEMGMT ---
MARIA EUGENIA BERMUDEZ Assessment Face to Face with patient for initial transition planning/care coordination assessment. MARIA EUGENIA BERMUDEZ introduced self and role at [facility], pt voices understanding. Pt is A&Ox4 and is resting comfortably in bed and is calm. Care providers, pharmacy, and demographics verified. Admitting dx: LLE Cellulitis LACE Strata: 4 PCP: Isauro Specialists: Jacquelin Waddell (GI), Wendi (DIRECT SUPPORT PROFESSIONAL, Psychiatry). Pt states he stopped seeing pain management. Preferred Pharmacy:[facility] Insurance:R RONNIE Prescription Benefit: Yes LNOK: - Carmencita Ceballos Living Arrangements: Pt states living with his , son, and daughter in a 2 story home with a basement with 3 steps to enter the home with no hand rail. Pt states the up and downstairs are not equipped with hand rails. Pt states he has a FFSU and does not go up or downstairs. Pt states he has had 2 recent falls and is trying to be more careful around the house. ADLs/IADLs: States independent Transportation: Pt states that he is able to drive but does not drive far because of venous insufficiency. Pt drives. DME: Pt states he has crutches and a walker at home and uses the walker occasionally d/t knee pain. HHC/SNF: Denies history or needs. Pt?s goal: DC Home Plan: DC Home with his family via his once medically cleared. Denies further needs at this time. Samy Lyn RN, CM
[2023-10-26 11:35] LABS: Vancomycin, Trough Level 20.9 ug/mL (5.0-15.0)
--- NOTE | 2023-10-26 12:05 | PCM.RX.CS ---
Consult Antibiotic Management Pharmacy has been consulted to manage selected antibiotic: Vancomycin Type of Intervention Type of Consult: Follow-up Prior Doses of Antibiotics Prior Doses of Antibiotics Received/Current Regimen: 10/24/23 2000mg x1 10/25/23 2000mg @ 0946,2043 Labs Labs: Vancomycin Trough 20.9 ug/mL (5.0-15.0) H 10/26/23 08:20 Microbiology Microbiology: Microbiology 10/24/23 16:56 Blood Culture (Wb) - Anticubital Left Bacteria Detection (PCR) - Final Staphylococcus aureus 10/24/23 16:56 Blood Culture (Wb) - Anticubital Left Blood Culture - Preliminary Staphylococcus aureus Dosing Weight Weight used for dosin kg Estimated Creatinine Clearance Estimated Creatinine Clearance: 97 Goal Trough Goal Trough: 15-20 mcg/mL Pharmacy Plan for Drug Dosing Pharmacy Plan for Drug Dosing: Due to trough level on 10/25/23 @ 0820 of 20.9 Decrease dose of Vancomycin 1750mg q12h starting 10/26/23 @ 1300 Pharmacy Service will continue to monitor and adjust dosing as required. Follow-Up Labs Follow-Up Labs: Trough: Vancomycin Date/Time Labs Ordered Labs to be done on [date and time ordered]: 10/28/23 @ 12:30 AM
[2023-10-26 12:21] LABS: Bedside Glucose 159 mg/dL (74-106)
[2023-10-26 12:26] LABS: Anion Gap 4 (5-15); BUN 18 mg/dL (7-18); BUN/Creat Ratio 15.4 RATIO (10-20); Calcium,Total 7.5 mg/dL (8.5-10.1); Chloride 112 mmol/L (98-107); Creatinine, Serum 1.17 mg/dL (0.70-1.30); EST Glomerular Filtration Rate 70 mL/min (>60); Est Glom Filt Rate - Afr Amer 85 mL/min (>60); Estimated Creatinine Clearance 127.97 ml/min; Glucose 133 mg/dL (74-106); Sodium Level 140 mmol/L (136-145)
[2023-10-26] MEDS: Vancomycin HCl 1,750 MG in 0.9% Normal Saline (500mL Bag) 500 ML 250 MG IV (12:31)
--- NOTE | 2023-10-26 13:38 | ECHOCS_ITS ---
Reason For Study: Murmur Procedure This was a 2D Doppler, Color Flow transthoracic echocardiogram. The study was technically difficult. Contrast injection was performed. Patient had a difficult time staying still. Exam performed portable in patient room. Left Ventricle Moderate concentric left ventricular hypertrophy. The estimated ejection fraction is 60-65 %. Right Ventricle Normal right ventricle. Normal systolic function. Atria The left atrium is moderately enlarged. The right atrium is mildly enlarged. Mitral Valve The mitral valve is structurally normal. No prolapse or stenosis seen. Tricuspid Valve Normal tricuspid valve. Aortic Valve Mild focal aortic valve calcification. Pulmonic Valve The pulmonic valve is not well visualized. Great Vessels Normal aortic root. Pericardium/Pleural No pericardial effusion. Medication Diluted definity 3ml given slow IV push to enhance endocardial definition. MMode/2D Measurements & Calculations LVIDd: 5.7 cm IVSd: 1.4 cm Ao root diam: 3.5 cm LVIDs: 3.8 cm LVPWd: 1.5 cm LA dimension: 5.7 cm FS: 34.2 % LAV(MOD-bp): 115.8 ml LVAd ap4: 51.4 cm2 SV(MOD-sp4): 146.6 ml LAV(MOD-bp) Indexed: 40.5 ml/m2 LVLd ap4: 10.2 cm LAV(MOD-sp2): 121.6 ml EDV(MOD-sp4): 211.2 ml LAV(MOD-sp4): 103.8 ml EDV(sp4-el): 219.0 ml LVAs ap4: 25.7 cm2 LVLs ap4: 8.4 cm ESV(MOD-sp4): 64.5 ml ESV(sp4-el): 66.1 ml EF(MOD-sp4): 69.4 % EF(sp4-el): 69.8 % SV(sp4-el): 152.9 ml LA A4 area: 30.4 cm2 Time Measurements MV dec time: 0.18 sec Doppler Measurements & Calculations MV E max roland: 125.5 cm/sec Lat Peak E' Roland: 17.2 cm/sec MV V2 max: 179.2 cm/sec E/E' lat: 7.3 MV max P.9 mmHg MV V2 mean: 110.8 cm/sec MV mean P.8 mmHg MV V2 VTI: 41.6 cm MV P1/2t max roland: 144.9 cm/sec Ao V2 max: 256.1 cm/sec PA V2 max: 123.3 cm/sec MV P1/2t: 92.0 msec Ao max P.2 mmHg Ao V2 mean: 157.7 cm/sec MV dec slope: 461.2 cm/sec2 Ao mean P.9 mmHg MVA(P1/2t): 2.4 cm2 Ao V2 VTI: 43.8 cm ECHO/Echo Complete W/ Contrast Interpretation Summary The estimated ejection fraction is 60-65 %.. Moderate concentric left ventricular hypertrophy Normal LV systolic function. No significant valvular abnormality No significant change from prior e echocardiogram Ordering Physician: Kyle Martinez Performed By: Aleks Chacko RCS
[2023-10-26 13:51] VITALS: BP 136/78; PULSE 98; RESP 12; TEMP 36.8; O2SAT 99
[2023-10-26] MEDS: 0.9% Normal Saline (250mL Bag) 250 ML 15 ML IV (15:00)
[2023-10-26] MEDS: Potassium Chloride Oral Tablet 20 MEQ PO (15:01)
[2023-10-26] MEDS: Furosemide 40 MG Tablet PO (15:01)
[2023-10-26 17:13] LABS: Bedside Glucose 152 mg/dL (74-106)
[2023-10-26 17:32] VITALS: BP 134/72; PULSE 96; RESP 14; TEMP 36.9; O2SAT 99
--- NOTE | 2023-10-26 19:44 | PCM.PN.HOSP ---
Reason for Visit Reason for Visit: Diagnoses Cellulitis of left lower limb (10/24/23) Acute kidney failure, unspecified (10/24/23) Subjective Subjective Patient was seen and examined today, his blood culture resulted positive for MRSA according to infectious diseases, I am unable to find the exact identification of MRSA however on the patient's lab work-it appears that he does have Staph aureus but sensitivities were not resulted, I had a brief discussion with infectious diseases who will see the patient in consultation. Patient has continued lower extremity edema, I made a decision today to place him on oral Lasix, I will repeat his BMP tomorrow. Objective Data Objective Data Vital Signs: Vital Signs Temp Pulse Resp BP Pulse Ox O2 Del Method 98.4 F 96 14 134/72 H 99 Room Air 10/26/23 17:32 10/26/23 17:32 10/26/23 17:32 10/26/23 17:32 10/26/23 17:32 10/26/23 17:32 Oxygen Delivery Method Room Air Weight: 169.4 kg Body Mass Index (BMI) 46.4 Intake & Output: Intake and Output for Last 24 Hours 10/24/23 10/25/23 10/26/23 23:59 23:59 23:59 Intake Total 650 / 950 3880 / 4380 1635 / 1635 Balance 650 / 950 3880 / 4380 1635 / 1635 Lab / Micro Data 10/26/23 08:20 10/26/23 08:20 Labs: Laboratory Results - last 24 hr 10/25/23 22:09: POC Glucose 172 H 10/26/23 06:01: POC Glucose 141 H 10/26/23 08:20: WBC 3.8 L, RBC 2.97 L, Hgb 9.3 L, Hct 27.6 L, MCV 92.9, MCH 31.3, MCHC 33.7, RDW Std Deviation 55.8 H, RDW Coeff of Ramya 16.2 H, Plt Count 59 L, MPV 12.4 H, Immature Gran % (Auto) 0.300, Neut % (Auto) 52.3, Lymph % (Auto) 26.9, [place] % (Auto) 12.2 H, Eos % (Auto) 7.2 H, Baso % (Auto) 1.1 H, Absolute Neuts (auto) 2.0, Absolute Lymphs (auto) 1.01, Nucleated RBC % 0, Differential Comment SCANNED, Sodium 140, Potassium 4.0, Chloride 112 H, Carbon Dioxide 24.0, Anion Gap 4 L, BUN 18, Creatinine 1.17, Estim Creat Clear Calc 127.97, Est GFR (MDRD) Af Amer 85, Est GFR (MDRD) Non-Af 70, BUN/Creatinine Ratio 15.4, Glucose 133 H, Calcium 7.5 L, Vancomycin Trough 20.9 H 10/26/23 11:44: POC Glucose 159 H 10/26/23 16:33: POC Glucose 152 H Micro: Microbiology 10/24/23 16:56 Blood Culture (Wb) - Anticubital Left Bacteria Detection (PCR) - Final Staphylococcus aureus 10/24/23 16:56 Blood Culture (Wb) - Anticubital Left Blood Culture - Preliminary Staphylococcus aureus Physical Exam Narrative alert, oriented x3 and no apparent distress Constitutional Narrative: Patient is morbidly obese General Appearance: cooperative, well kempt and well developed Orientation / Consciousness: awake, oriented to person, oriented to place and oriented to time HEENT normocephalic, head/scalp atraumatic and moist oral mucous membranes Eyes PERRL, EOMs intact bilaterally and conjunctivae normal Neck supple, no JVD, thyroid normal and no carotid bruits General: trachea midline Resp normal respiratory effort, no retractions, no use of accessory muscles and clear to auscultation bilaterally Auscultation: Negative for rales, rhonchi or wheezes Cardio regular rate, regular rhythm, S1 normal heart sound, S2 normal heart sound, no murmurs, no rub and no gallops GI normal to inspection, nondistended, normoactive bowel sounds, soft to palpation, non-tender and non-distended GI Narrative: Patient is morbidly obese Extremity Extremity Narrative: There is marked nonpitting edema noted of both lower legs, worse on the left, there is some redness to the inside of the patient's left upper leg extending into the left lower leg proximally Skin Skin Narrative: Patient appears to have some small abrasions over his left leg Neuro oriented x3, CN's II-XII intact bilaterally, moves all extremities, no focal motor deficits and no sensory deficits noted Sensorium / Orientation: awake and alert Speech: speech normal Psych affect normal Assessment & Plan Assessment/Plan (1) Cellulitis of left thigh: PLAN: Plan 1. Left leg cellulitis with probable methicillin resistant staph bacteremia-await culture results, patient remains on Zosyn and vancomycin, I discussed the case with infectious diseases who will see the patient in consultation #2 Acute kidney injury-resolved at this time, patient has significant lower extremity edema, I placed the patient on p.o. 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 #4 chronic depression-patient is on several psychiatric medications, these will be continued #5 Essential hypertension-patient's lisinopril is being held at this time due to his SARAI, blood pressure appears to be adequately controlled so I will leave him off this medication at this time and reevaluate #6 Type 2 [id number]-Erux-Xmrpo will continue and he will be given sliding scale insulin as indicated, patient is on Ozempic as an outpatient and metformin-these are being held #7 morbid obesity-complicates care, medical course, recovery, and prognosis #8 chronic neuropathy secondary to diabetes-patient is currently on gabapentin Total clinical time spent by myself addressing the patient's medical issues, reviewing all of his data, and collaborating with patient's care team: 35 min Capacity Legal Infection Prevention Practitioner Reflex Medical hold order details:: IF a medical hold is selected below, a suggested order for a MEDICAL HOLD will reflex upon signing the document. Next of kin: [place] law dictates a PRIORITY LIST for identifying legal decision-maker/legal next of kin in the following order (LNOK): 1st: The patient?s legal guardian, if any 2nd: The patient's spouse (if status is questionable, consult Risk Management) 3rd: The patient?s adult child(yesy) (majority, if multiple children) 4th: The patient?s parents 5th: The patient?s adult siblings (majority, if multiple children siblings) Charges/Coding Visit Charges Inpatient E&M: 13860 Subs Hosp L2
[2023-10-26] MEDS: Tamsulosin HCl 0.4 MG Capsule 0.400000000000000022 MG PO (21:08)
[2023-10-26] MEDS: QUEtiapine 25 MG Tablet 50 MG PO (21:09)
[2023-10-26] MEDS: lamoTRIgine 100 MG Tablet PO (21:09)
[2023-10-26] MEDS: Insulin Lispro 100 UNIT/ML INSULN.PEN SC (21:20)
[2023-10-26 21:40] VITALS: BP 136/69; PULSE 104; RESP 16; TEMP 37; O2SAT 96
[2023-10-26 21:54] LABS: Bedside Glucose 200 mg/dL (74-106)
[2023-10-26] MEDS: Pramipexole Di-HCl 0.125 MG Tablet PO (22:01)
[2023-10-27] MEDS: Vancomycin HCl 1,750 MG in 0.9% Normal Saline (500mL Bag) 500 ML 250 MG IV (01:52)
[2023-10-27] MEDS: busPIRone 5 MG Tablet PO ×3 (04:23→21:43)
[2023-10-27] MEDS: Piperacil/Tazobactam 3.375 GM in 0.9% Normal Saline (50mL MB+) 50 ML IV (04:23)
[2023-10-27] MEDS: Acetaminophen 325 MG Tablet 650 MG PO ×4 (04:27→18:29)
[2023-10-27 04:31] VITALS: BP 155/62; PULSE 98; RESP 18; TEMP 36.4; O2SAT 97
[2023-10-27 06:00] VITALS: BMI 46.6
[2023-10-27 06:34] LABS: Bedside Glucose 140 mg/dL (74-106)
[2023-10-27 08:28] LABS: Absolute Lymphocyte Count 0.92 X10^3/uL (0.83-4.51); Absolute Neutrophil Count 1.5 X10^3/uL (2.0-7.7); Basophil# 0.04 X10^3/uL; Basophil% 1.3 % (0-1); Eosinophil# 0.21 X10^3/uL; Eosinophils% 7.1 % (0-5); Hematocrit 28.1 % (40-54); Hemoglobin 9.3 g/dL (13.0-16.5); Lymphocyte # 0.92 X10^3/ul (0.83-4.51); Mean Corp Hgb Conc 33.1 g/dL (32-36); Mean Corpuscular Volume 93.7 fL (80-94); Mean Platelet Vol. 11.4 fl (6.2-12.0); Monocyte# 0.33 X10^3/uL; Monocyte% 11.1 % (0-10); NRBC Flagged by Analyzer 0 % (0-5); Neutrophil # 1.46 X10^3/uL (2.7-7.7); Neutrophil % 49.2 % (47-70); POSITIVE COUNT YES; Platelet Count 64 K/mm3 (150-450); RBC Distribution Width CV 16.2 % (11.6-14.6); RBC Distribution Width SD 55.3 fl (35.1-43.9)
[2023-10-27 08:42] LABS: Anion Gap 4 (5-15); BUN 17 mg/dL (7-18); BUN/Creat Ratio 14.8 RATIO (10-20); Chloride 111 mmol/L (98-107); Creatinine, Serum 1.15 mg/dL (0.70-1.30); EST Glomerular Filtration Rate 72 mL/min (>60); Est Glom Filt Rate - Afr Amer 87 mL/min (>60); Estimated Creatinine Clearance 130.19 ml/min; Glucose 127 mg/dL (74-106); Potassium 4.1 mmol/L (3.5-5.1); Sodium Level 140 mmol/L (136-145)
[2023-10-27 09:50] VITALS: BP 174/50; PULSE 102; RESP 18; TEMP 36.6; O2SAT 99
[2023-10-27] MEDS: lamoTRIgine 100 MG Tablet 200 MG PO (09:54)
[2023-10-27] MEDS: Pantoprazole Sodium 40 MG Tablet PO (09:54)
[2023-10-27] MEDS: Furosemide 40 MG Tablet PO (09:54)
[2023-10-27] MEDS: Potassium Chloride Oral Tablet 20 MEQ PO (09:55)
[2023-10-27] MEDS: Gabapentin 300 MG Capsule PO ×2 (09:55→21:54)
[2023-10-27] MEDS: oxyCODONE 5 MG Tablet PO ×3 (09:55→18:29)
[2023-10-27] MEDS: Heparin Injection (Vial) 5,000 UNIT/ML VIAL 5000 UNIT SC ×2 (09:55→21:43)
[2023-10-27] MEDS: DEXTROAMPHETAMINE PO ×2 (10:00→14:59)
[2023-10-27] MEDS: AMPHETAMINE PO ×2 (10:00→14:59)
--- NOTE | 2023-10-27 10:42 | PCM.CONS.GEN ---
Assessment & Plan Assessment/Plan (1) MSSA bacteremia: PLAN: MSSA bacteremia from LLE cellulitis - will repeat bcx and check TTE. Will narrow vanc/zosyn to cefazolin. Will need to consider fci po suppressive abx once bacteremia is treated given frequent episodes of cellulitis. Will follow, thank you HPI Consult Data Date of Consult: 10/27/23 HPI Narrative Reason for Consultation: bacteremia HPI Narrative: LIBRADO CARLSON, is a 48 M with cirrhosis, recurrent cellulitis, presented 10/24 with one day onset rapidly progressive LLE redness, pain, chills. Started on thigh, no known inciting events. Thinks has cellulitis 20 times in past 5 years. Started keflex 10/24 at home but due to worsening, came to ED. Feeling better. Redness resolved but still swelling and soreness in legs. No new joint or back pain. Wears compression stockings. Full ROS performed and neg except as noted above. FOR[facility]LY [facility], [facility] Medical History (Updated 10/27/23 @ 10:[address] 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 Lumbar disc disease with radiculopathy Lumbar disc prolapse with compression radiculopathy Malnutrition Morbid obesity due to excess calories Osteoporosis Other intervertebral disc degeneration, lumbar region Perianal abscess Rheumatoid arthritis Sleep apnea Spinal stenosis of lumbar region with neurogenic claudication Thrombocytopenia Ulcer of left ankle Ulcer of right lower extremity with fat layer exposed Vein disorder Venous insufficiency Home Medications gabapentin 300 mg capsule 300 mg PO Q12H NERVE PAIN 02/11/19 [History Last Taken 10/24/23] tamsulosin 0.4 mg capsule 0.4 mg PO QHS PROSTATE 04/05/21 [History Last Taken 10/23/23] dextroamphetamine-amphetamine 15 mg tablet 15 mg PO BID ADHD 12/25/21 [History Last Taken 10/24/23] omeprazole 40 mg capsule,delayed release 40 mg PO DAILY GERD 12/25/21 [History Last Taken 10/24/23] sildenafil 50 mg tablet 50 mg PO X1 PRN Erectile Dysfunction 12/25/21 [History Last Taken Unknown] lisinopril 40 mg tablet 40 mg PO DAILY BLOOD PRESSURE 06/02/23 [History Last Taken 10/24/23] metformin 1,000 mg tablet 1,000 mg PO BID DIABETES 06/02/23 [History Last Taken 10/24/23] promethazine 25 mg tablet 25 mg PO Q8H PRN NAUSEA/VOMITING 06/02/23 [History Last Taken Unknown] tizanidine 4 mg tablet 4 mg PO Q8H PRN MUSCLE SPASMS 06/02/23 [History Last Taken Unknown] lamotrigine 200 mg tablet 200 mg PO DAILY depression 08/21/23 [History Last Taken 10/24/23] cephalexin 500 mg capsule 500 mg PO TID atb 7 days #21 caps 08/23/23 [Rx Last Taken 10/24/23 08:00] ondansetron 4 mg disintegrating tablet 4 mg PO Q6H PRN nausea and vomiting #10 tabs 09/11/23 [Rx Last Taken Unknown] buspirone 5 mg tablet 5 mg PO TID mood 10/24/23 [History Last Taken 10/24/23] desvenlafaxine succinate 25 mg tablet,extended release 24 hr 25 mg PO DAILY depression 10/24/23 [History Last Taken 10/24/23] lorazepam 1 mg tablet 1 mg PO DAILY PRN panic attacks 10/24/23 [History Last Taken 10/12/23] metoprolol succinate 100 mg tablet,extended release 24 hr 100 mg PO Q12H hrt 10/24/23 [History Last Taken Unknown] quetiapine 25 mg tablet 50 mg PO QHS mood 10/24/23 [History Last Taken 10/23/23] semaglutide 0.25 mg or 0.5 mg (2 mg/3 mL) subcutaneous pen injector (Ozempic) 0.25 mg subcut QWEEK 10/24/23 [History Last Taken 10/21/23] spironolactone 50 mg tablet 50 mg PO DAILY BP 10/24/23 [History Last Taken 10/24/23] Allergy/AdvReac Type Severity Reaction Status Date / Time No Known Allergies Allergy Verified 10/24/23 16:41 Family History (Updated 10/24/23 @ 18:[address] Catrachita Infante MD) Mother Cancer COPD (chronic obstructive pulmonary disease) Hypertension Father Cancer COPD (chronic obstructive pulmonary disease) Hypertension Surgical History history incision and drainage perianal abscess (~10/05/20) History of cholecystectomy History of gastric surgery Status post laparoscopic Lazaro fundoplication Social History household members: spouse and children Smoking Status: Former smoker quit date: 10/12/11 pack-years: 2 Tobacco: How many years used: 20 alcohol intake: never substance use type: does not use Physical Exam Const alert, oriented x3 and no apparent distress General Appearance: cooperative HEENT normocephalic and head/scalp atraumatic Eyes PERRL and EOMs intact bilaterally Neck supple and No nodes Resp normal air movement and clear to auscultation bilaterally Cardio regular rate and regular rhythm Heart Sounds: murmur GI soft to palpation, non-tender and non-distended Extremity General Extremity: edema Skin no rashes or lesions noted Skin Narrative: no splinter hemorrhages on hands or feet Neuro CN's II-XII intact bilaterally Lab / Micro Data Attestation: I reviewed the patient's lab results. 10/27/23 07:39 10/27/23 07:39 Labs: Laboratory Results - last 24 hr 10/26/23 08:20: Sodium 140, Potassium 4.0, Chloride 112 H, Carbon Dioxide 24.0, Anion Gap 4 L, BUN 18, Creatinine 1.17, Estim Creat Clear Calc 127.97, Est GFR (MDRD) Af Amer 85, Est GFR (MDRD) Non-Af 70, BUN/Creatinine Ratio 15.4, Glucose 133 H, Calcium 7.5 L, Vancomycin Trough 20.9 H 10/26/23 11:44: POC Glucose 159 H 10/26/23 16:33: POC Glucose 152 H 10/26/23 21:19: POC Glucose 200 H 10/27/23 06:15: POC Glucose 140 H 10/27/23 07:39: WBC 3.0 L, RBC 3.00 L, Hgb 9.3 L, Hct 28.1 L, MCV 93.7, MCH 31.0, MCHC 33.1, RDW Std Deviation 55.3 H, RDW Coeff of Ramya 16.2 H, Plt Count 64 L, MPV 11.4, Immature Gran % (Auto) 0.300, Neut % (Auto) 49.2, Lymph % (Auto) 31.0, [place] % (Auto) 11.1 H, Eos % (Auto) 7.1 H, Baso % (Auto) 1.3 H, Absolute Neuts (auto) 1.5 L, Absolute Lymphs (auto) 0.92, Nucleated RBC % 0, Sodium 140, Potassium 4.1, Chloride 111 H, Carbon Dioxide 25.0, Anion Gap 4 L, BUN 17, Creatinine 1.15, Estim Creat Clear Calc 130.19, Est GFR (MDRD) Af Amer 87, Est GFR (MDRD) Non-Af 72, BUN/Creatinine Ratio 14.8, Glucose 127 H, Calcium 8.0 L Micro: Microbiology 10/24/23 17:15 Blood Culture (Wb) - Anticubital Right Blood Culture - Preliminary No growth in 48 hours. 10/24/23 16:56 Blood Culture (Wb) - Anticubital Left Bacteria Detection (PCR) - Final Staphylococcus aureus 10/24/23 16:56 Blood Culture (Wb) - Anticubital Left Blood Culture - Final Staphylococcus aureus Capacity Legal Bank Credit Card Collection Clerk Reflex Medical hold order details:: IF a medical hold is selected below, a suggested order for a MEDICAL HOLD will reflex upon signing the document. Next of kin: [place] law dictates a PRIORITY LIST for identifying legal decision-maker/legal next of kin in the following order (LNOK): 1st: The patient?s legal guardian, if any 2nd: The patient's spouse (if status is questionable, consult Risk Management) 3rd: The patient?s adult child(yesy) (majority, if multiple children) 4th: The patient?s parents 5th: The patient?s adult siblings (majority, if multiple children siblings)
[2023-10-27 12:10] VITALS: BP 167/62; PULSE 106; RESP 20; TEMP 36.8; O2SAT 99
[2023-10-27] MEDS: HYDROmorphone 0.5 MG/0.5 ML SYRINGE IV ×2 (12:13→17:33)
[2023-10-27] MEDS: Cefazolin 2 GM in 0.9% Normal Saline (100mL Bag) 100 ML IV ×2 (12:13→17:29)
[2023-10-27] MEDS: Insulin Lispro 100 UNIT/ML INSULN.PEN SC ×3 (12:13→21:43)
[2023-10-27] MEDS: 0.9% Saline Lock 10 ML Syringe IV ×2 (12:13→17:29)
[2023-10-27 13:46] LABS: Bedside Glucose 159 mg/dL (74-106)
[2023-10-27 14:00] VITALS: BP 161/78; PULSE 112; RESP 20; TEMP 37.2; O2SAT 96
[2023-10-27] MEDS: Benztropine Mesylate 0.5 MG TABLET PO ×2 (14:58→21:43)
--- NOTE | 2023-10-27 16:46 | PN.HOSP_ITS ---
Reason for Visit Reason for Visit: Diagnoses Methicillin susceptible Staphylococcus aureus infection as the cause of diseases classified elsewhere (10/24/23) Cellulitis of left lower limb (10/24/23) Acute kidney failure, unspecified (10/24/23) Bacteremia (10/24/23) Subjective Subjective Patient was seen and examined today, his blood cultures were positive for MSSA, patient was placed on cefazolin today. 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 He also complains of generalized pain in the left side of his body-am not sure what this is from, he says at 1 oxycodone is not helping so I have increased the dose to 2. Patient still has significant lower extremity edema. Objective Data Objective Data Vital Signs: Vital Signs Temp Pulse Resp BP Pulse Ox O2 Del Method 98.9 F 112 H 20 H 161/78 H 96 Room Air 10/27/23 14:00 10/27/23 14:00 10/27/23 14:00 10/27/23 14:00 10/27/23 14:00 10/27/23 15:04 Oxygen Delivery Method Room Air Weight: 169.4 kg Body Mass Index (BMI) 46.6 Intake & Output: Intake and Output for Last 24 Hours 10/25/23 10/26/23 10/27/23 23:59 23:59 23:59 Intake Total 3880 / 4380 1727.25 / 1727.25 761.25 / 761.25 Balance 3880 / 4380 1727.25 / 1727.25 761.25 / 761.25 Lab / Micro Data 10/27/23 07:39 10/27/23 07:39 Labs: Laboratory Results - last 24 hr 10/26/23 16:33: POC Glucose 152 H 10/26/23 21:19: POC Glucose 200 H 10/27/23 06:15: POC Glucose 140 H 10/27/23 07:39: WBC 3.0 L, RBC 3.00 L, Hgb 9.3 L, Hct 28.1 L, MCV 93.7, MCH 31.0, MCHC 33.1, RDW Std Deviation 55.3 H, RDW Coeff of Ramya 16.2 H, Plt Count 64 L, MPV 11.4, Immature Gran % (Auto) 0.300, Neut % (Auto) 49.2, Lymph % (Auto) 31.0, Kidder % (Auto) 11.1 H, Eos % (Auto) 7.1 H, Baso % (Auto) 1.3 H, Absolute Neuts (auto) 1.5 L, Absolute Lymphs (auto) 0.92, Nucleated RBC % 0, Sodium 140, Potassium 4.1, Chloride 111 H, Carbon Dioxide 25.0, Anion Gap 4 L, BUN 17, Creatinine 1.15, Estim Creat Clear Calc 130.19, Est GFR (MDRD) Af Amer 87, Est GFR (MDRD) Non-Af 72, BUN/Creatinine Ratio 14.8, Glucose 127 H, Calcium 8.0 L 10/27/23 12:04: POC Glucose 159 H Micro: Microbiology 10/24/23 17:15 Blood Culture (Wb) - Anticubital Right Blood Culture - Preliminary No growth in 48 hours. 10/24/23 16:56 Blood Culture (Wb) - Anticubital Left Bacteria Detection (PCR) - Final Staphylococcus aureus 10/24/23 16:56 Blood Culture (Wb) - Anticubital Left Blood Culture - Final Staphylococcus aureus Radiography Diagnostic Testing: Radiology Impression Echocardiogram 10/26/23 13:38 Interpretation Summary The estimated ejection fraction is 60-65 %.. Moderate concentric left ventricular hypertrophy Normal LV systolic function. No significant valvular abnormality No significant change from prior e echocardiogram Ordering Physician: Kyle Martinez Performed By: Aleks Chacko RCS Physical Exam Narrative alert, oriented x3 and no apparent distress Constitutional Narrative: Patient is morbidly obese General Appearance: cooperative, well kempt and well developed Orientation / Consciousness: awake, oriented to person, oriented to place and oriented to time HEENT normocephalic, head/scalp atraumatic and moist oral mucous membranes Eyes PERRL, EOMs intact bilaterally and conjunctivae normal Neck supple, no JVD, thyroid normal and no carotid bruits General: trachea midline Resp normal respiratory effort, no retractions, no use of accessory muscles and clear to auscultation bilaterally Auscultation: Negative for rales, rhonchi or wheezes Cardio regular rate, regular rhythm, S1 normal heart sound, S2 normal heart sound, no murmurs, no rub and no gallops GI normal to inspection, nondistended, normoactive bowel sounds, soft to palpation, non-tender and non-distended GI Narrative: Patient is morbidly obese Extremity Extremity Narrative: There is marked nonpitting edema noted of both lower legs, worse on the left, there is some redness to the inside of the patient's left upper leg extending into the left lower leg proximally Skin Skin Narrative: Patient appears to have some small abrasions over his left leg Neuro oriented x3, CN's II-XII intact bilaterally, moves all extremities, no focal motor deficits and no sensory deficits noted Sensorium / Orientation: awake and alert Speech: speech normal Psych affect normal Const alert and no apparent distress General Appearance: cooperative Resp normal air movement and clear to auscultation bilaterally Cardio regular rate and regular rhythm GI soft to palpation, non-tender and non-distended Extremity General Extremity: edema Skin no rashes or lesions noted Assessment & Plan Assessment/Plan (1) MSSA bacteremia: (2) Cellulitis of left thigh: PLAN: Plan 1. 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-patient follows up with a GI physician as an outpatient, his diuretics may need to be adjusted #4 chronic depression-patient is on several psychiatric medications, these will be continued #5 Essential hypertension-patient's lisinopril is being held at this time due to his SARAI, blood pressure appears to be adequately controlled so I will leave him off this medication at this time and reevaluate #6 Type 2 [id number] will continue and he will be given sliding scale insulin as indicated, patient is on Ozempic as an outpatient and metformin-these are being held #7 morbid obesity-complicates care, medical course, recovery, and prognosis #8 chronic neuropathy secondary to diabetes-patient is currently on gabapentin Total clinical time spent by myself addressing the patient's medical issues, reviewing all of his data, and collaborating with patient's care team: 35 min Capacity Legal Pearl Diver Reflex Medical hold order details:: IF a medical hold is selected below, a suggested order for a MEDICAL HOLD will reflex upon signing the document. Next of kin: [place] law dictates a PRIORITY LIST for identifying legal decision-maker/legal next of kin in the following order (LNOK): 1st: The patient?s legal guardian, if any 2nd: The patient's spouse (if status is questionable, consult Risk Management) 3rd: The patient?s adult child(yesy) (majority, if multiple children) 4th: The patient?s parents 5th: The patient?s adult siblings (majority, if multiple children siblings) Charges/Coding Visit Charges Inpatient E&M: 93819 Subs Hosp L2
[2023-10-27 17:30] VITALS: BP 147/96; PULSE 106; RESP 18; TEMP 36.8; O2SAT 96
[2023-10-27 17:48] LABS: Bedside Glucose 158 mg/dL (74-106)
[2023-10-27] MEDS: lamoTRIgine 100 MG Tablet PO (21:43)
[2023-10-27] MEDS: Tamsulosin HCl 0.4 MG Capsule 0.400000000000000022 MG PO (21:43)
[2023-10-27] MEDS: QUEtiapine 25 MG Tablet 50 MG PO (21:43)
[2023-10-27 22:00] VITALS: BP 147/71; PULSE 108; RESP 18; TEMP 37; O2SAT 99
[2023-10-27 22:51] LABS: Bedside Glucose 157 mg/dL (74-106)
[2023-10-28] MEDS: Acetaminophen 325 MG Tablet 650 MG PO ×3 (00:53→22:08)
[2023-10-28] MEDS: oxyCODONE 5 MG Tablet PO ×4 (00:53→22:08)
[2023-10-28 02:56] VITALS: BP 170/82; PULSE 109; RESP 22; TEMP 36.5; O2SAT 99
[2023-10-28] MEDS: HYDROmorphone 0.5 MG/0.5 ML SYRINGE IV (02:56)
[2023-10-28] MEDS: 0.9% Saline Lock 10 ML Syringe IV ×3 (02:58→17:41)
[2023-10-28] MEDS: Cefazolin 2 GM in 0.9% Normal Saline (100mL Bag) 100 ML IV ×3 (03:02→17:41)
[2023-10-28 04:19] VITALS: BP 134/86; PULSE 102; RESP 18; TEMP 36.6; O2SAT 99
[2023-10-28 05:43] VITALS: BMI 44.8
[2023-10-28] MEDS: busPIRone 5 MG Tablet PO ×3 (06:28→22:10)
[2023-10-28 06:54] LABS: Bedside Glucose 136 mg/dL (74-106)
[2023-10-28 08:02] VITALS: BP 139/62; PULSE 92; RESP 17; TEMP 36.7
[2023-10-28 08:14] VITALS: PULSE 92; RESP 17; O2SAT 100
--- NOTE | 2023-10-28 08:52 | WOUNDNOTE ---
Was asked to see patient for small open area to abdomen that is draining purulent drainage. this nurse in to assess the abdomen. there is a very small open area to the mid lower abdomen that measures approx 0.2cm x 0.2cm. very small amount of serous drainage noted. was not able to express any purulent drainage. there is no surrounding erythema. patient does have some dependent edema to the pannus. cleansed site with soap and water. pat dry. applied a foam dressing with silicone backing to absorb any drainage. pt tolerated well. no need for wound care at this time.
[2023-10-28 09:07] VITALS: BMI 47.2
[2023-10-28] MEDS: Gabapentin 300 MG Capsule PO ×2 (09:09→22:08)
[2023-10-28] MEDS: Potassium Chloride Oral Tablet 20 MEQ PO (09:10)
[2023-10-28] MEDS: Pantoprazole Sodium 40 MG Tablet PO (09:12)
[2023-10-28] MEDS: Furosemide 40 MG Tablet PO ×2 (09:13→22:09)
[2023-10-28] MEDS: lamoTRIgine 100 MG Tablet 200 MG PO (09:16)
[2023-10-28] MEDS: Benztropine Mesylate 0.5 MG TABLET PO ×2 (09:17→22:09)
[2023-10-28] MEDS: Heparin Injection (Vial) 5,000 UNIT/ML VIAL 5000 UNIT SC ×2 (09:19→22:09)
[2023-10-28] MEDS: AMPHETAMINE PO ×2 (09:31→14:58)
[2023-10-28] MEDS: DEXTROAMPHETAMINE PO ×2 (09:31→14:58)
--- NOTE | 2023-10-28 09:35 | WOUNDNOTE ---
wound photo: abdomen
[2023-10-28] MEDS: Insulin Lispro 100 UNIT/ML INSULN.PEN SC ×2 (11:11→16:47)
[2023-10-28 11:30] LABS: Bedside Glucose 158 mg/dL (74-106)
[2023-10-28] MEDS: Furosemide 100 MG/10 ML Vial 60 MG IV (11:41)
[2023-10-28] MEDS: Spironolactone 50 MG Tablet PO (11:44)
--- NOTE | 2023-10-28 12:52 | PCM.PN.ID ---
Physical Exam Narrative Feeling ok, no fever, swelling improved. Const alert and no apparent distress General Appearance: cooperative Resp normal air movement and clear to auscultation bilaterally Cardio regular rate and regular rhythm GI soft to palpation, non-tender and non-distended Extremity General Extremity: edema Skin no rashes or lesions noted ID ID: Route of nutrition/ use of supplements: [] Nutritional Intake: [] IV Site: [] Bernabe Catheter: [] Assessment & Plan Assessment/Plan (1) MSSA bacteremia: PLAN: MSSA bacteremia from LLE cellulitis - repeat bcx neg at 48h and no veg seen on TTE. Will cont cefazolin. Will need to consider residential po suppressive abx once bacteremia is treated given frequent episodes of cellulitis. Will follow
[2023-10-28 14:09] VITALS: BP 151/91; PULSE 102; RESP 18; TEMP 36.7; O2SAT 93
--- NOTE | 2023-10-28 15:11 | NURSING ---
reviewed student charting
[2023-10-28 17:06] LABS: Bedside Glucose 157 mg/dL (74-106)
--- NOTE | 2023-10-28 20:04 | PN.HOSP_ITS ---
Reason for Visit Reason for Visit: Diagnoses Methicillin susceptible Staphylococcus aureus infection as the cause of diseases classified elsewhere (10/24/23) Cellulitis of left lower limb (10/24/23) Acute kidney failure, unspecified (10/24/23) Bacteremia (10/24/23) Subjective Subjective Patient was seen and examined today, he continues to have significant edema especially in the lower extremities. I placed the patient on some Aldactone today and gave him 1 dose of IV Lasix. Patient's blood culture results show no growth at 48 hours from the culture that was done on 10/24/2023, culture done on 10/26/2023 shows no growth in 48 hours, the blood culture from 10/27/2023 is pending. Patient is still having tardive dyskinetic movements. Objective Data Objective Data Vital Signs: Vital Signs Temp Pulse Resp BP Pulse Ox O2 Del Method 98.0 F 102 H 18 151/91 H 93 Room Air 10/28/23 14:09 10/28/23 14:09 10/28/23 14:09 10/28/23 14:09 10/28/23 14:09 10/28/23 14:09 Oxygen Delivery Method Room Air Weight: 171.458 kg Body Mass Index (BMI) 47.2 Intake & Output: Intake and Output for Last 24 Hours 10/26/23 10/27/23 10/28/23 23:59 23:59 23:59 Intake Total 1727.25 / 1727.25 977.00 / 977.00 332 / 332 Balance 1727.25 / 1727.25 977.00 / 977.00 332 / 332 Lab / Micro Data 10/27/23 07:39 10/27/23 07:39 Labs: Laboratory Results - last 24 hr 10/27/23 21:46: POC Glucose 157 H 10/28/23 06:28: POC Glucose 136 H 10/28/23 11:02: POC Glucose 158 H 10/28/23 16:46: POC Glucose 157 H Micro: Microbiology 10/26/23 14:19 Blood Culture (Wb) - Anticubital Left Blood Culture - Preliminary No growth in 48 hours. 10/24/23 17:15 Blood Culture (Wb) - Anticubital Right Blood Culture - Preliminary No growth in 48 hours. 10/24/23 16:56 Blood Culture (Wb) - Anticubital Left Bacteria Detection (PCR) - Final Staphylococcus aureus 10/24/23 16:56 Blood Culture (Wb) - Anticubital Left Blood Culture - Final Staphylococcus aureus Physical Exam Narrative alert, oriented x3 and no apparent distress Constitutional Narrative: Patient is morbidly obese General Appearance: cooperative, well kempt and well developed Orientation / Consciousness: awake, oriented to person, oriented to place and oriented to time HEENT normocephalic, head/scalp atraumatic and moist oral mucous membranes Eyes PERRL, EOMs intact bilaterally and conjunctivae normal Neck supple, no JVD, thyroid normal and no carotid bruits General: trachea midline Resp normal respiratory effort, no retractions, no use of accessory muscles and clear to auscultation bilaterally Auscultation: Negative for rales, rhonchi or wheezes Cardio regular rate, regular rhythm, S1 normal heart sound, S2 normal heart sound, no murmurs, no rub and no gallops GI normal to inspection, nondistended, normoactive bowel sounds, soft to palpation, non-tender and non-distended GI Narrative: Patient is morbidly obese Extremity Extremity Narrative: There is marked nonpitting edema noted of both lower legs, worse on the left, there is some redness to the inside of the patient's left upper leg extending into the left lower leg proximally Skin Skin Narrative: Patient appears to have some small abrasions over his left leg Neuro oriented x3, CN's II-XII intact bilaterally, moves all extremities, no focal motor deficits and no sensory deficits noted Sensorium / Orientation: awake and alert Speech: speech normal Psych affect normal Const alert and no apparent distress General Appearance: cooperative Resp normal air movement and clear to auscultation bilaterally Cardio regular rate and regular rhythm GI soft to palpation, non-tender and non-distended Extremity General Extremity: edema Skin no rashes or lesions noted Assessment & Plan Assessment/Plan (1) MSSA bacteremia: (2) Cellulitis of left thigh: PLAN: Plan 1. Left leg cellulitis with probable methicillin resistant staph bacteremia- await culture results, patient is now on Ancef per ID #2 Acute kidney injury-resolved at this time, patient has significant lower extremity edema, patient remains on Lasix, again Aldactone was ordered on the patient today and I gave him 1 dose of IV Lasix. 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-patient follows up with a GI physician as an outpatient, his diuretics may need to be adjusted #4 chronic depression-patient is on several psychiatric medications, these will be continued #5 Essential hypertension-patient's lisinopril is being held at this time due to his SARAI, blood pressure appears to be adequately controlled so I will leave him off this medication at this time and reevaluate #6 Type 2 [id number] will continue and he will be given sliding scale insulin as indicated, patient is on Ozempic as an outpatient and metformin-these are being held #7 morbid obesity-complicates care, medical course, recovery, and prognosis #8 chronic neuropathy secondary to diabetes-patient is currently on gabapentin Total clinical time spent by myself addressing the patient's medical issues, reviewing all of his data, and collaborating with patient's care team: 35 min Capacity Legal Party Plan Sales Consultant Reflex Medical hold order details:: IF a medical hold is selected below, a suggested order for a MEDICAL HOLD will reflex upon signing the document. Next of kin: [place] law dictates a PRIORITY LIST for identifying legal decision-maker/legal next of kin in the following order (LNOK): 1st: The patient?s legal guardian, if any 2nd: The patient's spouse (if status is questionable, consult Risk Management) 3rd: The patient?s adult child(yesy) (majority, if multiple children) 4th: The patient?s parents 5th: The patient?s adult siblings (majority, if multiple children siblings) Charges/Coding Visit Charges Inpatient E&M: 46879 Subs Hosp L2
[2023-10-28] MEDS: Tamsulosin HCl 0.4 MG Capsule 0.400000000000000022 MG PO (22:09)
[2023-10-28] MEDS: QUEtiapine 25 MG Tablet 50 MG PO (22:10)
[2023-10-28] MEDS: lamoTRIgine 100 MG Tablet PO (22:10)
[2023-10-28 22:15] VITALS: BP 159/78; PULSE 101; RESP 18; TEMP 36.9; O2SAT 98
[2023-10-28 23:02] LABS: Bedside Glucose 149 mg/dL (74-106)
[2023-10-29] MEDS: 0.9% Saline Lock 10 ML Syringe IV ×3 (03:15→11:41)
[2023-10-29] MEDS: Cefazolin 2 GM in 0.9% Normal Saline (100mL Bag) 100 ML IV ×2 (03:15→09:34)
[2023-10-29] MEDS: Acetaminophen 325 MG Tablet 650 MG PO (03:18)
[2023-10-29] MEDS: oxyCODONE 5 MG Tablet PO ×2 (03:18→07:31)
[2023-10-29 03:28] VITALS: BP 154/65; PULSE 101; RESP 18; TEMP 36.6; O2SAT 98
[2023-10-29 06:00] VITALS: BMI 47.2
[2023-10-29] MEDS: busPIRone 5 MG Tablet PO (06:54)
[2023-10-29 07:22] LABS: Bedside Glucose 116 mg/dL (74-106)
[2023-10-29] MEDS: Potassium Chloride Oral Tablet 20 MEQ PO (07:33)
[2023-10-29] MEDS: DEXTROAMPHETAMINE PO (07:36)
[2023-10-29] MEDS: AMPHETAMINE PO (07:36)
[2023-10-29 08:30] LABS: Anion Gap 3 (5-15); BUN 14 mg/dL (7-18); BUN/Creat Ratio 12.2 RATIO (10-20); Chloride 108 mmol/L (98-107); Creatinine, Serum 1.15 mg/dL (0.70-1.30); EST Glomerular Filtration Rate 72 mL/min (>60); Est Glom Filt Rate - Afr Amer 87 mL/min (>60); Estimated Creatinine Clearance 131.14 ml/min; Glucose 128 mg/dL (74-106); Potassium 3.6 mmol/L (3.5-5.1); Sodium Level 140 mmol/L (136-145)
[2023-10-29 09:28] VITALS: BP 134/64; PULSE 112; RESP 18; TEMP 36.7; O2SAT 94
[2023-10-29] MEDS: Furosemide 40 MG Tablet PO (09:34)
[2023-10-29] MEDS: Benztropine Mesylate 0.5 MG TABLET PO (09:35)
[2023-10-29] MEDS: lamoTRIgine 100 MG Tablet 200 MG PO (09:35)
[2023-10-29] MEDS: Spironolactone 50 MG Tablet PO (09:35)
[2023-10-29] MEDS: Gabapentin 300 MG Capsule PO (09:35)
[2023-10-29] MEDS: Pantoprazole Sodium 40 MG Tablet PO (09:35)
[2023-10-29] MEDS: Heparin Injection (Vial) 5,000 UNIT/ML VIAL 5000 UNIT SC (09:36)
--- NOTE | 2023-10-29 10:32 | PN.ID_ITS ---
Physical Exam Narrative Feeling better, mild abd soreness, no fever Const alert and no apparent distress Resp normal air movement and clear to auscultation bilaterally Cardio regular rate and regular rhythm GI soft to palpation, non-tender and non-distended Extremity General Extremity: edema ID ID: Route of nutrition/ use of supplements: [] Nutritional Intake: [] IV Site: [] Bernabe Catheter: [] Assessment & Plan Assessment/Plan (1) MSSA bacteremia: PLAN: MSSA bacteremia from LLE cellulitis - repeat bcx neg at 48h and no veg seen on TTE. On cefazolin. Will need to consider pen[facility]entiary po suppressive abx once bacteremia is treated given frequent episodes of cellulitis. Ok for home with 10 days po levaquin. ID followup in 2 weeks. Will follow
--- NOTE | 2023-10-29 11:07 | DCINST_ITS ---
Discharge Instructions Diet Discharge Diet: No restrictions Activity Discharge Activity: Return to Normal Activity Weight Bearing Status: Full weight bearing Follow Up Care Test Results: Test results from this visit will be discussed in further detail at your follow- up appointment, if applicable. Discharge Plan Admission Admit Date/Time: 10/24/23 18:15 Primary Reason for Your Visit: staph bacteremia Attending Provider: Josue Julio Primary Care Provider: Omari Box Consulting Providers: Catrachita Infante; Kyle Martinez Discharge Orders/Prescriptions Prescriptions: New levofloxacin 500 mg tablet 500 mg PO DAILY Qty: 10 0RF quetiapine 25 mg Tablet 50 mg PO QHS Qty: 0 0RF furosemide 40 mg Tablet 40 mg PO 1XD Qty: 30 0RF potassium chloride 20 mEq Tablet,Er Particles/Crystals 20 meq PO DAILYCM Qty: 30 0RF lamotrigine 100 mg Tablet 100 mg PO QHS Qty: 0 0RF spironolactone 50 mg Tablet 50 mg PO DAILY Qty: 0 0RF benztropine 1 mg tablet 1 mg PO BID Qty: 60 0RF Continued gabapentin 300 MG capsule 300 mg PO Q12H Rx Instructions: take 300 mg BID tamsulosin 0.4 mg capsule 0.4 mg PO QHS sildenafil 50 mg tablet 50 mg PO X1 PRN (Reason: Erectile Dysfunction) Patient Comments: Take 1 tab. by mouth once daily as needed 1 hour before sexual activity; may take up to 4 hours before sexual activity. omeprazole 40 mg capsule,delayed release(DR/EC) 40 mg PO DAILY dextroamphetamine-amphetamine 15 mg Tablet 15 mg PO BID promethazine 25 mg tablet 25 mg PO Q8H PRN (Reason: NAUSEA/VOMITING) tizanidine 4 mg tablet 4 mg PO Q8H PRN (Reason: MUSCLE SPASMS) metformin 1,000 mg tablet 1,000 mg PO BID lamotrigine 200 mg tablet 200 mg PO DAILY Patient Comments: Take 1 tablet by mouth every morning. Please schedule follow-up appt for further refills quetiapine 25 mg tablet 50 mg PO QHS Patient Comments: Take 1 tablet by mouth daily at bedtime. buspirone 5 mg tablet 5 mg PO TID Patient Comments: Take 1 tablet by mouth three times daily. metoprolol succinate 100 mg tablet extended release 24 hr 100 mg PO Q12H Patient Comments: not taking because it makes him feel funny lorazepam 1 mg tablet 1 mg PO DAILY PRN (Reason: panic attacks) Patient Comments: Take 1 tablet by mouth once daily as needed (severe panic symptoms) for up to 30 days. spironolactone 50 mg tablet 50 mg PO DAILY desvenlafaxine succinate 25 mg tablet extended release 24 hr 25 mg PO DAILY Patient Comments: Take 1 tablet by mouth daily with breakfast. Ozempic 0.25 mg or 0.5 mg (2 mg/3 mL) pen injector 0.25 mg subcut QWEEK Rx Instructions: for 4 weeks Changed lisinopril 40 mg tablet 20 mg PO DAILY Qty: 1 0RF Discontinued ondansetron 4 mg tablet,disintegrating 4 mg PO Q6H PRN (Reason: nausea and vomiting) Qty: 10 0RF Hold Instructions: Order Completed Patient Comments: has script at home but does not take cephalexin 500 mg capsule 500 mg PO TID 7 Days Qty: 21 0RF Patient Comments: cellulitis Referrals / Follow Up: Omari Box MD [Primary Care Provider] - Within 1 Week (you will need your kidney functions rechecked) Disposition Disposition (needs filled in before D/C Order can be placed): Home, Self Care
[2023-10-29] MEDS: Ondansetron 4 MG/2 ML Vial IV (11:41)
[2023-10-29 11:42] LABS: Bedside Glucose 133 mg/dL (74-106)
--- NOTE | 2023-10-29 11:44 | PCM.DC.SUM ---
Providers Date of Admission: 10/24/23 Date of Discharge: 10/29/23 Primary Care Physician: Dr. Omari Box MD Consultations 10/26/23 13:43 Consult: Infectious Disease Routine Consulting Provider: Kyle Martinez Reason for Consult: MRSA EMERGENT Consult: No Notified: Yes Date Notified: 10/26/23 Time Notified: 13:43 Method of Notification: Verbal Reason For Visit: LLE CELLULITIS Diagnosis Discharge Diagnosis (1) MSSA bacteremia: Status: Acute Code(s): R78.81 - Bacteremia; B95.61 - Methicillin susceptible Staphylococcus aureus infection as the cause of diseases classified elsewhere Plan 1. Left leg cellulitis with probable methicillin sensitive staph bacteremia #2 Acute kidney injury-resolved at this time, patient has significant lower extremity edema, patient remains on Lasix, again Aldactone was ordered on the patient today and I gave him 1 dose of IV Lasix. 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-patient follows up with a GI physician as an outpatient, his diuretics may need to be adjusted #4 chronic depression-patient is on several psychiatric medications, these will be continued #5 Essential hypertension-patient's lisinopril is being held at this time due to his SARAI, blood pressure appears to be adequately controlled so I will leave him off this medication at this time and reevaluate #6 Type 2 [id number] will continue and he will be given sliding scale insulin as indicated, patient is on Ozempic as an outpatient and metformin-these are being held #7 morbid obesity-complicates care, medical course, recovery, and prognosis #8 chronic neuropathy secondary to diabetes-patient is currently on gabapentin Total clinical time spent by myself addressing the patient's medical issues, reviewing all of his data, and collaborating with patient's care team: 35 min Methicillin resistant Staphylococcus was ruled out Medications at Discharge Home Medications gabapentin 300 mg capsule 300 mg PO Q12H NERVE PAIN 02/11/19 tamsulosin 0.4 mg capsule 0.4 mg PO QHS PROSTATE 04/05/21 dextroamphetamine-amphetamine 15 mg tablet 15 mg PO BID ADHD 12/25/21 omeprazole 40 mg capsule,delayed release 40 mg PO DAILY GERD 12/25/21 sildenafil 50 mg tablet 50 mg PO X1 PRN Erectile Dysfunction 12/25/21 metformin 1,000 mg tablet 1,000 mg PO BID DIABETES 06/02/23 promethazine 25 mg tablet 25 mg PO Q8H PRN NAUSEA/VOMITING 06/02/23 tizanidine 4 mg tablet 4 mg PO Q8H PRN MUSCLE SPASMS 06/02/23 lamotrigine 200 mg tablet 200 mg PO DAILY depression 08/21/23 buspirone 5 mg tablet 5 mg PO TID mood 10/24/23 desvenlafaxine succinate 25 mg tablet,extended release 24 hr 25 mg PO DAILY depression 10/24/23 lorazepam 1 mg tablet 1 mg PO DAILY PRN panic attacks 10/24/23 metoprolol succinate 100 mg tablet,extended release 24 hr 100 mg PO Q12H hrt 10/24/23 quetiapine 25 mg tablet 50 mg PO QHS mood 10/24/23 semaglutide 0.25 mg or 0.5 mg (2 mg/3 mL) subcutaneous pen injector (Ozempic) 0.25 mg subcut QWEEK 10/24/23 spironolactone 50 mg tablet 50 mg PO DAILY BP 10/24/23 benztropine 1 mg tablet 1 mg PO BID #60 tabs 10/29/23 furosemide 40 mg tablet 40 mg PO 1XD #30 tabs 10/29/23 lamotrigine 100 mg tablet 100 mg PO QHS #0 tabs 10/29/23 levofloxacin 500 mg tablet 500 mg PO DAILY #10 tabs 10/29/23 lisinopril 40 mg tablet 20 mg (1/2 x 40 mg) PO DAILY BLOOD PRESSURE #1 TAB 10/29/23 potassium chloride 20 mEq tablet,extended release(part/cryst) 20 meq PO DAILYCM #30 tabs 10/29/23 quetiapine 25 mg tablet 50 mg (2 x 25 mg) PO QHS #0 tabs 10/29/23 spironolactone 50 mg tablet 50 mg PO DAILY #0 tabs 10/29/23 Hospital Course Operations None Procedures None Summary of Care Provided Minutes Spent on Discharge: 32 Hospital Course: This 48-year-old white male was seen in the emergency room at [facility] with complaints of redness and warmth over the inner aspect of the patient's left leg, he was felt to have a cellulitis and was admitted to [place] [id number] and placed on IV antibiotics. Patient's blood culture resulted positive for methicillin sensitive Staph aureus, patient was seen by infectious diseases who repeated blood cultures which were ultimately negative. Patient was given oral diuretics and 1 dose of IV diuretics due to lower extremity swelling from his associated chronic cirrhosis. On 10/29/2023, patient was seen and examined:alert, oriented x3 and no apparent distress Constitutional Narrative: Patient is morbidly obese General Appearance: cooperative, well kempt and well developed Orientation / Consciousness: awake, oriented to person, oriented to place and oriented to time HEENT normocephalic, head/scalp atraumatic and moist oral mucous membranes Eyes PERRL, EOMs intact bilaterally and conjunctivae normal Neck supple, no JVD, thyroid normal and no carotid bruits General: trachea midline Resp normal respiratory effort, no retractions, no use of accessory muscles and clear to auscultation bilaterally Auscultation: Negative for rales, rhonchi or wheezes Cardio regular rate, regular rhythm, S1 normal heart sound, S2 normal heart sound, no murmurs, no rub and no gallops GI normal to inspection, nondistended, normoactive bowel sounds, soft to palpation, non-tender and non-distended GI Narrative: Patient is morbidly obese Extremity Extremity Narrative: There is marked nonpitting edema noted of both lower legs, worse on the left, there is some redness to the inside of the patient's left upper leg extending into the left lower leg proximally Skin Skin Narrative: Patient appears to have some small abrasions over his left leg Neuro oriented x3, CN's II-XII intact bilaterally, moves all extremities, no focal motor deficits and no sensory deficits noted Sensorium / Orientation: awake and alert Speech: speech normal Psych affect normal Patient was discharged in stable condition on 10/29/2023 Weight / BMI Weight Weight: 171.558 kg Body Mass Index (BMI) 47.2 ABG / Lab / Microbiology Data 10/27/23 07:39 10/29/23 07:08 Laboratory: Laboratory Results - last 24 hr 10/28/23 16:46: POC Glucose 157 H 10/28/23 22:07: POC Glucose 149 H 10/29/23 06:47: POC Glucose 116 H 10/29/23 07:08: Sodium 140, Potassium 3.6, Chloride 108 H, Carbon Dioxide 29.0, Anion Gap 3 L, BUN 14, Creatinine 1.15, Estim Creat Clear Calc 131.14, Est GFR (MDRD) Af Amer 87, Est GFR (MDRD) Non-Af 72, BUN/Creatinine Ratio 12.2, Glucose 128 H, Calcium 8.0 L 10/29/23 11:12: POC Glucose 133 H Microbiology: Microbiology 10/26/23 14:19 Blood Culture (Wb) - Anticubital Left Blood Culture - Preliminary No growth in 48 hours. 10/24/23 17:15 Blood Culture (Wb) - Anticubital Right Blood Culture - Preliminary No growth in 48 hours. 10/24/23 16:56 Blood Culture (Wb) - Anticubital Left Bacteria Detection (PCR) - Final Staphylococcus aureus 10/24/23 16:56 Blood Culture (Wb) - Anticubital Left Blood Culture - Final Staphylococcus aureus D/C Instructions Discharge Diet: No restrictions Weight Bearing Status: Full weight bearing Meaningful Use Info Meaningful Use Diagnoses (Choose all that apply): None applicable Discharge Plan Admission Admit Date/Time: 10/24/23 18:15 Primary Reason for Your Visit: staph bacteremia Attending Provider: Josue Julio Primary Care Provider: Omari Box Consulting Providers: Catrachita Infante; Kyle Martinez Discharge Orders/Prescriptions Prescriptions: New levofloxacin 500 mg tablet 500 mg PO DAILY Qty: 10 0RF quetiapine 25 mg Tablet 50 mg PO QHS Qty: 0 0RF furosemide 40 mg Tablet 40 mg PO 1XD Qty: 30 0RF potassium chloride 20 mEq Tablet,Er Particles/Crystals 20 meq PO DAILYCM Qty: 30 0RF lamotrigine 100 mg Tablet 100 mg PO QHS Qty: 0 0RF spironolactone 50 mg Tablet 50 mg PO DAILY Qty: 0 0RF benztropine 1 mg tablet 1 mg PO BID Qty: 60 0RF Continued gabapentin 300 MG capsule 300 mg PO Q12H Rx Instructions: take 300 mg BID tamsulosin 0.4 mg capsule 0.4 mg PO QHS sildenafil 50 mg tablet 50 mg PO X1 PRN (Reason: Erectile Dysfunction) Patient Comments: Take 1 tab. by mouth once daily as needed 1 hour before sexual activity; may take up to 4 hours before sexual activity. omeprazole 40 mg capsule,delayed release(DR/EC) 40 mg PO DAILY dextroamphetamine-amphetamine 15 mg Tablet 15 mg PO BID promethazine 25 mg tablet 25 mg PO Q8H PRN (Reason: NAUSEA/VOMITING) tizanidine 4 mg tablet 4 mg PO Q8H PRN (Reason: MUSCLE SPASMS) metformin 1,000 mg tablet 1,000 mg PO BID lamotrigine 200 mg tablet 200 mg PO DAILY Patient Comments: Take 1 tablet by mouth every morning. Please schedule follow-up appt for further refills quetiapine 25 mg tablet 50 mg PO QHS Patient Comments: Take 1 tablet by mouth daily at bedtime. buspirone 5 mg tablet 5 mg PO TID Patient Comments: Take 1 tablet by mouth three times daily. metoprolol succinate 100 mg tablet extended release 24 hr 100 mg PO Q12H Patient Comments: not taking because it makes him feel funny lorazepam 1 mg tablet 1 mg PO DAILY PRN (Reason: panic attacks) Patient Comments: Take 1 tablet by mouth once daily as needed (severe panic symptoms) for up to 30 days. spironolactone 50 mg tablet 50 mg PO DAILY desvenlafaxine succinate 25 mg tablet extended release 24 hr 25 mg PO DAILY Patient Comments: Take 1 tablet by mouth daily with breakfast. Ozempic 0.25 mg or 0.5 mg (2 mg/3 mL) pen injector 0.25 mg subcut QWEEK Rx Instructions: for 4 weeks Changed lisinopril 40 mg tablet 20 mg PO DAILY Qty: 1 0RF Discontinued ondansetron 4 mg tablet,disintegrating 4 mg PO Q6H PRN (Reason: nausea and vomiting) Qty: 10 0RF Hold Instructions: Order Completed Patient Comments: has script at home but does not take cephalexin 500 mg capsule 500 mg PO TID 7 Days Qty: 21 0RF Patient Comments: cellulitis Referrals / Follow Up: Omari Box MD [Primary Care Provider] - 11/04/23 11:10 am (you will need your kidney functions rechecked) Disposition Disposition (needs filled in before D/C Order can be placed): Home, Self Care Charges/Coding Visit Charges Inpatient E&M: 82606 Disch Hosp >30min
--- NOTE | 2023-10-29 12:40 | CASEMGMT ---
Pt states he is safe and comfortable DC from the hospital today. Pt states he is able to drive home and denies further needs at this time.
== END 2023-10-29 13:56 | disposition home or self-care (01) | DRG 603 ==
LOC: ED 17:43 → MS3 18:58
PROVIDERS: Admitting Provider Family Medicine; Emergency Provider Emergency Medicine; PCP Internal Medicine; Visit Provider Internal Medicine
DX: L03.116 Cellulitis of left lower limb (principal); D61.818 Other pancytopenia; R78.81 Bacteremia; N17.9 Acute kidney failure, unspecified; Z68.41 Body mass index [BMI] 40.0-44.9, adult; E11.40 Type 2 diabetes mellitus with diabetic neuropathy, unspecified; E11.59 Type 2 diabetes mellitus with other circulatory complications; B95.61 Methicillin susceptible Staphylococcus aureus infection as the cause of diseases classified elsewhere; K74.60 Unspecified cirrhosis of liver; E66.01 Morbid (severe) obesity due to excess calories; I10 Essential (primary) hypertension; F32.A Depression, unspecified; I87.2 Venous insufficiency (chronic) (peripheral); E78.5 Hyperlipidemia, unspecified; I89.0 Lymphedema, not elsewhere classified; G47.33 Obstructive sleep apnea (adult) (pediatric); K21.9 Gastro-esophageal reflux disease without esophagitis; K75.81 Nonalcoholic steatohepatitis (NASH); G24.01 Drug induced subacute dyskinesia; F41.9 Anxiety disorder, unspecified; G89.29 Other chronic pain; Z87.891 Personal history of nicotine dependence; Z82.5 Family history of asthma and other chronic lower respiratory diseases
CPT/HCPCS: 36415; 73552; 80048; 80053; 80202; 82962; 83605; 85025; 87040; 87149; 87186; 93306; 94668; 99285; J7030; J7040; J7050; Q9957; A4216; C8929; J1940; J2405

== ENCOUNTER 2023-12-03 22:42 | Emergency (ER) | payer OTHER, SELFPAY ==
[2023-12-03 22:43] VITALS: BP 150/59; PULSE 110; RESP 18; TEMP 36.9; O2SAT 98; BMI 41.8
--- NOTE | 2023-12-03 23:07 | CT_ITS ---
INDICATION: periumbilical abd pain, fever, DEAN cirrhosis COMPARISON: 09/11/[address] RADIATION DOSAGE (If Supplied By Facility): CTDIvol/DLP = 29.07 / 1969.85 mGy / mGycm A radiation dose optimization technique was used for this scan. FINDINGS: Noncontrast serial CT axial images through the abdomen and pelvis with coronal and sagittal reformatted series. PANCREAS: No peripancreatic fat stranding. BOWEL/MESENTERY: No dilated bowel loops. Small dependent pelvic free fluid. No free air. APPENDIX: Normal caliber appendix. GALLBLADDER: Absent gallbladder with surgical clips in the gallbladder fossa. LIVER/STOMACH: Cirrhotic liver. SPLEEN: Splenomegaly measuring up to 21 cm. URINARY COLLECTING SYSTEM/ KIDNEYS: No obstructing ureteral calculus. No significant renal parenchymal abnormality. AORTA/GREAT VESSELS: Extensive central abdominal varices. LUNG BASES: Tiny right pleural effusion. Small amount of pericardial fluid. BONES: Old right lateral lower rib fracture deformities. CT/Abdomen/Pelvis W IV Cont ONLY IMPRESSION: Sequela of portal venous hypertension and hepatic cirrhosis as above, to include extensive central abdominal varices. No acute abdominal abnormality is identified, to include normal appendix and no evidence of obstructing ureteral calculus. Tiny right pleural effusion. Small amount of pericardial fluid. Electronically Signed: Matthew Lopez MD at 1:31 EST ,
--- NOTE | 2023-12-03 23:09 | ED.VIS.GI ---
HPI HPI - GI History of Present Illness Chief Complaint: Abd Pain Informant: patient Abdominal Pain/Flank Pain Onset: Today Timing: Continuous Quality: Dull Location: - (Supraumbilical) Current Severity: Severe Maximum Severity: Severe Nausea/Vomiting/Emesis GI Symptom: Negative for Nausea or Vomiting Diarrhea/Melena/Hematochezia GI Symptom: Negative for Diarrhea, Melena or Hematochezia Associated Symptoms Associated Symptoms: Negative for Dysuria or Hematuria Narrative Narrative: Patient states he woke up this morning with mid abdominal pain that has not migrated or radiated since then but has continuously worsened all day and presents around 2300 for this continuous discomfort. He has had fevers and chills throughout the day, stating at 1 point he measured his temperature of 102. He has a history of Soriano cirrhosis. Has a history of a cholecystectomy as well as a Lazaro. He states he usually does not have abdominal pain but the last time he had this discomfort he states he had some type of bad abdominal infection that he could see suggesting that it was part of the abdominal wall, and that it made him septic. 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 Lumbar disc disease with radiculopathy Lumbar disc prolapse with compression radiculopathy Malnutrition Morbid obesity due to excess calories Osteoporosis Other intervertebral disc degeneration, lumbar region Perianal abscess Rheumatoid arthritis Sepsis Sleep apnea Spinal stenosis of lumbar region with neurogenic claudication Thrombocytopenia Ulcer of left ankle Ulcer of right lower extremity with fat layer exposed Vein disorder Venous insufficiency Home Medications gabapentin 300 mg capsule 300 mg PO Q12H NERVE PAIN 02/11/19 [History Last Taken 10/24/23] tamsulosin 0.4 mg capsule 0.4 mg PO QHS PROSTATE 04/05/21 [History Last Taken 10/23/23] dextroamphetamine-amphetamine 15 mg tablet 15 mg PO BID ADHD 12/25/21 [History Last Taken 10/24/23] omeprazole 40 mg capsule,delayed release 40 mg PO DAILY GERD 12/25/21 [History Last Taken 10/24/23] sildenafil 50 mg tablet 50 mg PO X1 PRN Erectile Dysfunction 12/25/21 [History Last Taken Unknown] metformin 1,000 mg tablet 1,000 mg PO BID DIABETES 06/02/23 [History Last Taken 10/24/23] promethazine 25 mg tablet 25 mg PO Q8H PRN NAUSEA/VOMITING 06/02/23 [History Last Taken Unknown] tizanidine 4 mg tablet 4 mg PO Q8H PRN MUSCLE SPASMS 06/02/23 [History Last Taken Unknown] lamotrigine 200 mg tablet 200 mg PO DAILY depression 08/21/23 [History Last Taken 10/24/23] buspirone 5 mg tablet 5 mg PO TID mood 10/24/23 [History Last Taken 10/24/23] desvenlafaxine succinate 25 mg tablet,extended release 24 hr 25 mg PO DAILY depression 10/24/23 [History Last Taken 10/24/23] lorazepam 1 mg tablet 1 mg PO DAILY PRN panic attacks 10/24/23 [History Last Taken 10/12/23] metoprolol succinate 100 mg tablet,extended release 24 hr 100 mg PO Q12H hrt 10/24/23 [History Last Taken Unknown] quetiapine 25 mg tablet 50 mg PO QHS mood 10/24/23 [History Last Taken 10/23/23] semaglutide 0.25 mg or 0.5 mg (2 mg/3 mL) subcutaneous pen injector (Ozempic) 0.25 mg subcut QWEEK 10/24/23 [History Last Taken 12/02/23] spironolactone 50 mg tablet 50 mg PO DAILY BP 10/24/23 [History Last Taken 10/24/23] benztropine 1 mg tablet 1 mg PO BID #60 tabs 10/29/23 [Rx Last Taken Unknown] furosemide 40 mg tablet 40 mg PO 1XD #30 tabs 10/29/23 [Rx Last Taken Unknown] lamotrigine 100 mg tablet 100 mg PO QHS #0 tabs 10/29/23 [Rx Last Taken Unknown] lisinopril 40 mg tablet 20 mg (1/2 x 40 mg) PO DAILY BLOOD PRESSURE #1 TAB 10/29/23 [Rx Last Taken 10/24/23] potassium chloride 20 mEq tablet,extended release(part/cryst) 20 meq PO DAILYCM #30 tabs 10/29/23 [Rx Last Taken Unknown] quetiapine 25 mg tablet 50 mg (2 x 25 mg) PO QHS #0 tabs 10/29/23 [Rx Last Taken Unknown] spironolactone 50 mg tablet 50 mg PO DAILY #0 tabs 10/29/23 [Rx Last Taken Unknown] cephalexin 500 mg capsule 500 mg PO Q12H PRN takes w fver and leg pain as needed 12/03/23 [History Last Taken Unknown] Allergy/AdvReac Type Severity Reaction Status Date / Time No Known Allergies Allergy Verified 12/03/23 22:45 Family History (Updated 10/24/23 @ 18:[address] Catrachita Infante MD) Mother Cancer COPD (chronic obstructive pulmonary disease) Hypertension Father Cancer COPD (chronic obstructive pulmonary disease) Hypertension Surgical History history incision and drainage perianal abscess (~10/05/20) History of cholecystectomy History of gastric surgery Status post laparoscopic Lazaro fundoplication Social History household members: spouse and children Smoking Status: Former smoker quit date: 10/12/11 pack-years: 2 Tobacco: How many years used: 20 alcohol intake: never substance use type: does not use ROS ROS ED Constitutional Constitutional ED: Reports chills, fever(s) and malaise Eyes Eyes: Denies change in vision or diplopia ENT ENT ED: Denies rhinorrhea or sore throat Cardiovascular Cardiovascular: Denies chest pain or palpitations Respiratory/Chest Respiratory/Chest: Denies cough or dyspnea Gastrointestinal Gastrointestinal: Reports abdominal pain; Denies diarrhea, hematochezia, melena, nausea or vomiting Genitourinary Genitourinary ED: Denies dysuria or hematuria Musculoskeletal Musculoskeletal: Denies back pain or neck pain Integumentary Reports other Details: chronic sores on abd ; Denies abscess or rash Neurologic Neurologic: Denies headache(s), paresthesias or weakness Psychiatric Psychiatric: Denies suicidal thoughts EXAM Physical Exam Const Vital Signs: 12/03/23 22:43 Temperature 98.4 F Temperature Source Temporal Pulse Rate 110 H Respiratory Rate 18 Blood Pressure 150/59 H Blood Pressure Mean 89 Pulse Ox 98 Oxygen Delivery Method Room Air Positive well nourished and well developed General Appearance ED: well developed and NAD HEENT Reports moist mucous membranes normocephalic and atraumatic Eyes PERRL and EOMs intact bilaterally Neck full ROM and supple Resp normal respiratory effort and clear to auscultation bilaterally Cardio regular rate, regular rhythm and no murmurs GI non-distended GI Narrative: Mild tenderness in the right upper quadrant, but more significant tenderness just supraumbilical. There is some mild involuntary guarding here but no rebound tenderness. I do not palpate any hernias in this area or other lumps. There are several scattered superficial subcentimeter sores on the abdominal wall/skin that are nontender and without any surrounding cellulitis or discharge. Patient states that these look as usual and are not the source of his pain. Inspection is otherwise unremarkable. The rest of the abdomen is nontender. Auscultation: normoactive bowel sounds Palpation: soft Back/Spine no CVA tenderness General Back: other FROM Extremity normal to inspection General Extremety ED: Yes edema; Negative for pulses abnormal or tenderness General Extremity: edema bilateral lower extremity Details: moderate (Without tenderness or signs of cellulitis/acute infection); Negative for pulses abnormal Neuro oriented x3, CN's II-XII intact bilaterally and no sensory deficits noted Sensorium / Orientation: awake and alert Motor Exam: strength 5/5 throughout Skin no rashes or lesions noted and no wounds MDM MDM MDM Narrative Medical decision making narrative: Given the patient's prior history and report of having a fever at home, septic workup was obtained and a CT of the abdomen/pelvis. His lactate is elevated but this is nonspecific given that he has nonalcoholic cirrhosis. His total bilirubin is elevated associated with this. He has thrombocytopenia which is chronic for him. He does not have leukocytosis and the rest of his labs are unremarkable including his renal function. In the meantime he was given morphine. I reviewed the CT images and the result which I agree with, it is negative for anything acute/inflammatory, it shows findings of his cirrhosis and some varices in his abdomen but nothing that I think is likely to be causing this pain. He was given dicyclomine, Mylanta, and another dose of morphine. On reevaluation he is doing better. He is okay going home. I recommend close outpatient follow-up if his symptoms do not self-resolved. Differential includes functional causes of intestinal pain, I think that the varices are much less likely to be related, similar with his cirrhosis. He does have some ascites, but he does not have rebound tenderness to suggest that he has spontaneous bacterial peritonitis. Lab Data Attestation: I reviewed the patient's lab results. Labs: Laboratory Results - last 24 hr 12/03/23 23:00 WBC 7.1 RBC 2.97 L Hgb 9.4 L Hct 27.5 L MCV 92.6 MCH 31.6 MCHC 34.2 RDW Std Deviation 51.6 H RDW Coeff of Ramya 15.6 H Plt Count 67 L MPV 10.8 Immature Gran % (Auto) 0.700 Neut % (Auto) 76.3 H Lymph % (Auto) 13.2 L Dickey % (Auto) 6.1 Eos % (Auto) 3.0 Baso % (Auto) 0.7 Absolute Neuts (auto) 5.4 Absolute Lymphs (auto) 0.93 Nucleated RBC % 0 Sodium 141 Potassium 3.7 Chloride 112 H Carbon Dioxide 26.0 Anion Gap 3 L BUN 8 Creatinine 1.07 Estim Creat Clear Calc 131.68 Est GFR (MDRD) Af Amer 94 Est GFR (MDRD) Non-Af 78 BUN/Creatinine Ratio 7.5 L Glucose 156 H Lactic Acid 2.9 H* Calcium 8.3 L Total Bilirubin 3.20 H AST 46 H ALT 26 Alkaline Phosphatase 111 Total Protein 5.6 L Albumin 1.9 L Globulin 3.7 Albumin/Globulin Ratio 0.5 L Lipase 52 Urine Color [place] Urine Clarity Clear Urine pH 6.5 Ur Specific [place] 1.015 Urine Protein 100 H Urine Glucose (UA) Normal Urine Ketones Negative Urine Occult Blood 250 H Urine Nitrite Negative Urine Bilirubin 1 H Urine Urobilinogen 4 H Ur Leukocyte Esterase 100 H Urine RBC > 100 SEEN Urine WBC 5-10 SEEN Ur Squamous Epith Cells 0-5 SEEN Urine Bacteria RARE Urine Mucus 0 SEEN Radiography Diagnostic Testing: Clinical Impression(s) from Imaging Studies Abdomen/Pelvis CT 12/03/23 23:07 IMPRESSION: Sequela of portal venous hypertension and hepatic cirrhosis as above, to include extensive central abdominal varices. No acute abdominal abnormality is identified, to include normal appendix and no evidence of obstructing ureteral calculus. Tiny right pleural effusion. Small amount of pericardial fluid. 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 by mouth once daily as needed 1 hour before sexual activity; may take up to 4 hours before sexual activity. omeprazole 40 mg capsule,delayed release(DR/EC) 40 mg PO DAILY dextroamphetamine-amphetamine 15 mg Tablet 15 mg PO BID promethazine 25 mg tablet 25 mg PO Q8H PRN (Reason: NAUSEA/VOMITING) tizanidine 4 mg tablet 4 mg PO Q8H PRN (Reason: MUSCLE SPASMS) metformin 1,000 mg tablet 1,000 mg PO BID lamotrigine 200 mg tablet 200 mg PO DAILY Patient Comments: Take 1 tablet by mouth every morning. Please schedule follow-up appt for further refills quetiapine 25 mg tablet 50 mg PO QHS Patient Comments: Take 1 tablet by mouth daily at bedtime. buspirone 5 mg tablet 5 mg PO TID Patient Comments: Take 1 tablet by mouth three times daily. metoprolol succinate 100 mg tablet extended release 24 hr 100 mg PO Q12H Patient Comments: not taking because it makes him feel funny lorazepam 1 mg tablet 1 mg PO DAILY PRN (Reason: panic attacks) Patient Comments: Take 1 tablet by mouth once daily as needed (severe panic symptoms) for up to 30 days. spironolactone 50 mg tablet 50 mg PO DAILY desvenlafaxine succinate 25 mg tablet extended release 24 hr 25 mg PO DAILY Patient Comments: Take 1 tablet by mouth daily with breakfast. Ozempic 0.25 mg or 0.5 mg (2 mg/3 mL) pen injector 0.25 mg subcut QWEEK Rx Instructions: for 4 weeks quetiapine 25 mg Tablet 50 mg PO QHS Qty: 0 0RF furosemide 40 mg Tablet 40 mg PO 1XD Qty: 30 0RF potassium chloride 20 mEq Tablet,Er Particles/Crystals 20 meq PO DAILYCM Qty: 30 0RF lamotrigine 100 mg Tablet 100 mg PO QHS Qty: 0 0RF spironolactone 50 mg Tablet 50 mg PO DAILY Qty: 0 0RF lisinopril 40 mg tablet 20 mg PO DAILY Qty: 1 0RF benztropine 1 mg tablet 1 mg PO BID Qty: 60 0RF cephalexin 500 mg capsule 500 mg PO Q12H PRN (Reason: takes w fver and leg pain as needed) Patient Comments: TAKE 1 CAPSULE BY MOUTH TWICE DAILY FOR 7 DAYS--may start onset of s/s infection Primary Care Provider: Omari Box Referrals: Omari Box MD [Primary Care Provider] - 3-5 Days if not improving Disposition Disposition: Home, Self Care Discharge Date/Time: 12/04/23 03:32
[2023-12-03] MEDS: Morphine 4 MG/ML Syringe IV (23:22)
[2023-12-03] MEDS: 0.9% Normal Saline (1000mL) 1,000 ML 125 ML IV (23:22)
[2023-12-03 23:25] LABS: Mucous, Urine 0 SEEN /hpf (<or=2+)
[2023-12-03 23:30] LABS: Color, Urine Amber (Yellow); Glucose, Dipstick Normal (Normal); Ketone-Dipstick Negative (Negative); Leukocyte Esterase-Dipstick 100 /ul (Negative); Nitrite-Dipstick Negative (Negative); Occult Blood-Urine 250 /ul (Negative); Protein-Dipstick 100 mg/dl (Negative); Specific Gravity, Urine 1.015 (1.002-1.030); Urine Bilirubin Dipstick 1 mg/dL (Negative); Urine Clarity Clear (Clear); Urine Urobilinogen 4 mg/dl (Normal); Urine pH 6.5 (5.0 - 8.0)
[2023-12-03 23:34] LABS: Bacteria RARE /hpf (None Seen); Red Blood Cells-Urine > 100 SEEN /hpf (0-5); Squamous Epithelial Cells - UA 0-5 SEEN /hpf (0-5); White Blood Cells 5-10 SEEN /hpf (0-5)
[2023-12-03 23:38] LABS: Absolute Lymphocyte Count 0.93 X10^3/uL (0.83-4.51); Absolute Neutrophil Count 5.4 X10^3/uL (2.0-7.7); Basophil# 0.05 X10^3/uL; Basophil% 0.7 % (0-1); Eosinophil# 0.21 X10^3/uL; Hematocrit 27.5 % (40-54); Hemoglobin 9.4 g/dL (13.0-16.5); Lymphocyte # 0.93 X10^3/ul (0.83-4.51); Lymphocyte % 13.2 % (19-41); Mean Corp Hgb Conc 34.2 g/dL (32-36); Mean Corpuscular Hgb 31.6 pg (27.0-32.0); Mean Corpuscular Volume 92.6 fL (80-94); Mean Platelet Vol. 10.8 fl (6.2-12.0); Monocyte# 0.43 X10^3/uL; Monocyte% 6.1 % (0-10); NRBC Flagged by Analyzer 0 % (0-5); Neutrophil # 5.39 X10^3/uL (2.7-7.7); Neutrophil % 76.3 % (47-70); POSITIVE COUNT YES; Platelet Count 67 K/mm3 (150-450); RBC Distribution Width CV 15.6 % (11.6-14.6); RBC Distribution Width SD 51.6 fl (35.1-43.9); Red Blood Count 2.97 M/mm3 (4.6-6.2); White Blood Count 7.1 K/mm3 (4.4-11.0)
[2023-12-03 23:43] LABS: ALB/GLOB Ratio 0.5 RATIO (0.9-2.4); AST(SGOT) 46 U/L (15-37); Alanine Aminotransfer ALT/SGPT 26 U/L (16-61); Albumin, Serum 1.9 g/dL (3.2-5.0); Alkaline Phosphatase 111 U/L (45-117); Anion Gap 3 (5-15); BUN 8 mg/dL (7-18); BUN/Creat Ratio 7.5 RATIO (10-20); Calcium,Total 8.3 mg/dL (8.5-10.1); Chloride 112 mmol/L (98-107); Creatinine, Serum 1.07 mg/dL (0.70-1.30); EST Glomerular Filtration Rate 78 mL/min (>60); Est Glom Filt Rate - Afr Amer 94 mL/min (>60); Estimated Creatinine Clearance 131.68 ml/min; Globulin 3.7 g/dL (2.2-4.2); Glucose 156 mg/dL (74-106); Lipase 52 U/L (13-75); Potassium 3.7 mmol/L (3.5-5.1); Protein, Total 5.6 g/dL (6.4-8.2); Sodium Level 141 mmol/L (136-145)
[2023-12-03 23:59] LABS: Lactic Acid 2.9 mmol/L (0.4-1.9)
[2023-12-04] MEDS: Dicyclomine 10 MG Capsule 20 MG PO (02:36)
[2023-12-04] MEDS: Mag Hydrox/Al Hydrox/Simeth 30 ML UDC PO (02:36)
[2023-12-04] MEDS: Morphine 4 MG/ML Syringe IV (02:37)
[2023-12-04 03:26] LABS: Reflex Lactate? Y
[2023-12-04 03:31] VITALS: BP 130/60; PULSE 75; RESP 16; TEMP 36.6; O2SAT 96
== END 2023-12-04 03:32 | disposition home or self-care (01) ==
PROVIDERS: Emergency Provider Emergency Medicine; PCP Internal Medicine; Visit Provider Emergency Medicine
DX: K75.81 Nonalcoholic steatohepatitis (NASH) (principal); K74.60 Unspecified cirrhosis of liver; D69.6 Thrombocytopenia, unspecified; E11.9 Type 2 diabetes mellitus without complications; R18.8 Other ascites; Z87.891 Personal history of nicotine dependence; R10.33 Periumbilical pain; K21.9 Gastro-esophageal reflux disease without esophagitis
CPT/HCPCS: 74177; 80053; 81001; 83605; 83690; 85025; 87040; 96361; 96374; 96376; 99284; J7030; Q9967; A4216

== ENCOUNTER 2024-01-18 22:30 | Emergency (ER) | payer OTHER, SELFPAY ==
[2024-01-18] VITALS (17 sets, daily range): BP systolic 33–73; BP diastolic 18–53; PULSE 48–144; RESP 16–25; TEMP 34.7–35.5; O2SAT 99–100; BMI 38.7
--- NOTE | 2024-01-18 22:30 | RAD_ITS ---
STUDY: X-RAY CHEST REASON FOR EXAM: Male, 48 years old. chest pain TECHNIQUE: Single AP portable view of the chest. COMPARISON: 08/25/2023 FINDINGS: Poor inspiration with some bibasilar atelectasis. There is no demonstrated pleural abnormality. Normal size heart. Normal mediastinum and akil. Normal visualized pulmonary arteries. Normal visualized aortic arch and descending thoracic aorta. Normal visualized thoracic spine. Normal visualized ribs, clavicles, and shoulders. There is no demonstrated abnormality of the visualized soft tissue structures of the upper abdomen. RAD/Chest 1 View (Portable) IMPRESSION: Poor inspiration with some bibasilar atelectasis. Electronically Signed: Anibal Silva MD at 23:23 EDT ,
--- NOTE | 2024-01-18 22:37 | EKG12_ITS ---
Test Reason : REPEAT Blood Pressure : / mmHG Vent. Rate : 060 BPM Atrial Rate : 060 BPM P-R Int : 156 ms QRS Dur : 088 ms QT Int : 466 ms P-R-T Axes : 055 017 047 degrees QTc Int : 466 ms Normal sinus rhythm Normal ECG Confirmed by Timothy Ball ([id number]), editorial writer ELICIA BARBA ([id number]) on 01/20/2024 5:46:28 AM Referred By: Confirmed By:Timothy Ball
[2024-01-18] MEDS: Rocuronium Bromide 50 MG/5 ML Vial IV (22:41)
[2024-01-18] MEDS: Etomidate 20 MG/10 ML Vial IV (22:41)
[2024-01-18] MEDS: Midazolam 5 MG/ML Syringe IV (22:46)
[2024-01-18] MEDS: 0.9% Normal Saline (1000mL) 1,000 ML 1000 ML IV (22:46)
[2024-01-18 22:55] LABS: Absolute Neutrophil Count 5.8 X10^3/uL (2.0-7.7); Basophil# 0.11 X10^3/uL; Basophil% 0.8 % (0-1); Eosinophil# 0.65 X10^3/uL; Eosinophils% 4.9 % (0-5); Hematocrit 17.9 % (40-54); Mean Corp Hgb Conc 33.5 g/dL (32-36); Mean Corpuscular Hgb 33.9 pg (27.0-32.0); Mean Corpuscular Volume 101.1 fL (80-94); Mean Platelet Vol. 11.5 fl (6.2-12.0); Monocyte# 0.87 X10^3/uL; Monocyte% 6.5 % (0-10); NRBC Flagged by Analyzer 0 % (0-5); Neutrophil # 5.75 X10^3/uL (2.7-7.7); Neutrophil % 42.9 % (47-70); POSITIVE DIFFERENTIAL YES; Platelet Count 104 K/mm3 (150-450); RBC Distribution Width CV 16.6 % (11.6-14.6); RBC Distribution Width SD 61.4 fl (35.1-43.9); Red Blood Count 1.77 M/mm3 (4.6-6.2); White Blood Count 13.4 K/mm3 (4.4-11.0)
[2024-01-18 23:04] LABS: Differential Indicated SCAN CRITERIA MET
[2024-01-18 23:06] LABS: International Normalized Ratio 3.2; Prothrombin Time (Protime)PT. 32.2 SECONDS (11.7-14.9)
[2024-01-18] MEDS: dexMEDEtomidine 400 MCG in 0.9% Normal Saline (100mL Bag) 96 ML 17.6 MCG CONT INF (23:06)
[2024-01-18 23:07] LABS: Partial Thromboplast Time 49.7 Seconds (24.1-36.2)
[2024-01-18] MEDS: Norepinephrine 8 MG in 0.9% Normal Saline (250mL Bag) 242 ML 18.8 MG CONT INF (23:08)
[2024-01-18 23:13] LABS: Alcohol, Blood (Medical)-Serum < 3.0 mg/dL
[2024-01-18 23:16] LABS: AST(SGOT) 31 U/L (15-37); Alanine Aminotransfer ALT/SGPT 14 U/L (16-61); Albumin, Serum 1.4 g/dL (3.2-5.0); Alkaline Phosphatase 82 U/L (45-117); Anion Gap 14 (5-15); BUN 15 mg/dL (7-18); BUN/Creat Ratio 8.9 RATIO (10-20); Bilirubin, Direct 0.72 mg/dL (0.00-0.30); Calcium,Total 7.4 mg/dL (8.5-10.1); Chloride 114 mmol/L (98-107); Creatinine, Serum 1.69 mg/dL (0.70-1.30); EST Glomerular Filtration Rate 46 mL/min (>60); Est Glom Filt Rate - Afr Amer 56 mL/min (>60); Estimated Creatinine Clearance 80.04 ml/min; Globulin 2.9 g/dL (2.2-4.2); Glucose 216 mg/dL (74-106); Lipase 45 U/L (13-75); Potassium 2.8 mmol/L (3.5-5.1); Protein, Total 4.3 g/dL (6.4-8.2); Sodium Level 143 mmol/L (136-145); Troponin-I HS 50 pg/mL (3.0-78.0)
--- NOTE | 2024-01-18 23:19 | CT_ITS ---
We are attempting to reach an attending provider to discuss findings. An addendum with communication details will be sent when the communication is complete. EXAM: CT ANGIOGRAPHY CHEST, ABDOMEN AND PELVIS WITH INTRAVENOUS CONTRAST CLINICAL INDICATION: aortic dissection TECHNIQUE: Helically acquired angiography images were obtained of the chest, abdomen and pelvis with intravenous contrast. This CT exam was performed using one or more of the following dose reduction techniques: automated exposure control, adjustment of the mA and/or kV according to patient size, and/or use of iterative reconstruction technique. MIP reconstructed images were created and reviewed. CONTRAST: IV 100mL [id number] RADIATION DOSE: Total DLP: 1598.59 mGy-cm. COMPARISON: Nonenhanced chest CT of 08/31/2023. Abdomen pelvis CT of 12/04/2023. Portable chest radiograph of this same date. FINDINGS: LIMITATIONS: Streak artifact from the patient''s arms. VASCULATURE: AORTA: Thoracic aorta is normal in caliber. No aortic aneurysm or dissection identified. The IVC and central abdominal varices are collapsed, as can be seen with hypotension. Upper abdominal aorta is minimally flattened. PULMONARY ARTERIES: Unremarkable. Normal in caliber. No obvious central pulmonary embolism although this study was not performed with the pulmonary embolism protocol. GREAT VESSELS OF AORTIC ARCH: Unremarkable. Normal in caliber. No dissection. CELIAC TRUNK AND MESENTERIC ARTERIES: No acute findings. No occlusion or significant stenosis. No dissection. RENAL ARTERIES: No acute findings. No occlusion or significant stenosis. No dissection. ILIAC ARTERIES: No acute findings. No occlusion or significant stenosis. No dissection. CHEST: LUNGS AND PLEURAL SPACES: Dependent atelectasis noted within both lungs. No patchy pneumonia. No pleural effusion or pneumothorax. No mass. HEART: Small- moderate pericardial effusion is present, larger than on the prior study, now measuring up to 2.3 cm in thickness along the left heart border. MEDIASTINUM: Unremarkable. No mediastinal or hilar adenopathy. Esophagus is unremarkable. No hiatal hernia. THYROID: Unremarkable. No thyroid lesions. ABDOMEN: LIVER: Liver small with a nodular contour indicating hepatic cirrhosis. GALLBLADDER AND BILE DUCTS: The gallbladder is absent. No intra- or extrahepatic biliary ductal dilation. PANCREAS: See below. SPLEEN: Spleen remains enlarged measuring 15.6 cm in AP diameter by 21 cm in cephalocaudal dimension. ADRENALS: Unremarkable. No nodules. KIDNEYS AND URETERS: Unremarkable. Normal renal size and position. No hydronephrosis. STOMACH AND BOWEL: Head and body of the pancreas are unremarkable. There is hazy fat stranding about the pancreatic uncinate process and distal duodenum, and with mild thickening of the distal duodenal wall, a new finding. No distended small bowel loops are identified. No findings of small bowel obstruction, colitis or diverticulitis identified. PELVIS: APPENDIX: No evidence of acute appendicitis. BLADDER: Urinary bladder is collapsed about a Bernabe catheter. REPRODUCTIVE: Unremarkable as visualized. No mass. CHEST, ABDOMEN and PELVIS: INTRAPERITONEAL SPACE: There is been considerable interval increase in amount of intra-abdominal fluid within the abdomen and pelvis since the prior study; a large volume of intra-abdominal fluid is present, most of which shows CT attenuation of under 20 indicating ascites, but fluid within the dependent portion of the paracolic gutters shows CT attenuation of up to 35, which could be due to hemoperitoneum mixed with the ascites versus streak artifact from the patient''s arms. There is no free air. BONES/JOINTS: Unremarkable. No suspicious lytic or blastic abnormality. No acute osseous abnormality. SOFT TISSUES: Unremarkable. No discrete abdominal or pelvic wall hernia. LYMPH NODES: Unremarkable. No enlarged lymph nodes. TUBES, LINES AND DEVICES: ET tube is in place within the trachea with its tip projected above the level of shanta. NG tube is in place and extends into the stomach. CT/CTA Chst, Abd, Pel W and/or WO IMPRESSION: Negative for PE. No aortic aneurysm or dissection. Dependent atelectasis at the lung bases. Mild/moderate pericardial effusion, larger than on the prior study. Very large volume of intra-abdominal fluid, most of which is ascites, but there is increased attenuation of the fluid in the paracolic gutters which could be due to hemoperitoneum needs with the ascites versus streak artifact from the patient''s arms. Paracentesis may be of benefit to further evaluate for hemoperitoneum. No free air. Findings of hepatic cirrhosis with marked splenomegaly again noted. Flattening of the IVC and central abdominal varices, and with slight flattening of the abdominal aorta, consistent with the clinical history of hypotension. Thickening of the distal duodenal wall with surrounding haziness, consistent with duodenitis; the haziness extends about the pancreatic uncinate process, raising possibility of a minimal pancreatitis. Nonstandard communication protocol initiated. Electronically Signed: Gaudencio Alejandra MD at 0:18 EDT ,
[2024-01-18 23:27] LABS: Differential Comment SCANNED
--- NOTE | 2024-01-18 23:43 | EKG12_ITS ---
Test Reason : CP Blood Pressure : / mmHG Vent. Rate : 148 BPM Atrial Rate : 148 BPM P-R Int : 096 ms QRS Dur : 084 ms QT Int : 298 ms P-R-T Axes : 040 040 079 degrees QTc Int : 467 ms Critical Test Result: High HR Sinus tachycardia with short AR Otherwise normal ECG Confirmed by Timothy Ball ([id number]), mapping editor ELICIA BARBA ([id number]) on 01/20/2024 5:46:17 AM Referred By: Confirmed By:Timothy Ball
[2024-01-18 23:52] LABS: Mucous, Urine 0 SEEN /hpf (<or=2+); Squamous Epithelial Cells - UA 0 SEEN /hpf (0-5); White Blood Cells 0 SEEN /hpf (0-5)
[2024-01-18 23:57] LABS: Allen Test Negative; Base Excess -21 mmol/L (-2 to +2); Bicarbonate 9.4 mmol/L (22-26); Blood Gas Specimen Type ART; Mode AC; O2 Delivery Device Adult Vent; PEEP 5; PO2 192 mmHG (75-100); RR 16; SITE R Radial; SO2 99 % (95-99); Time Given 23:53:29; Total Carbon Dioxide 11 mmol/L; pCO2 34.8 mmHg (35-45); pH 7.04 (7.35-7.45)
[2024-01-18] MEDS: 0.9% Normal Saline (1000mL) 1,000 ML 250 ML IV (23:57)
[2024-01-19] VITALS (103 sets, daily range): BP systolic 0–147; BP diastolic 0–117; PULSE 40–145; RESP 12–21; TEMP 33.3–35.7; O2SAT 98–100
[2024-01-19 00:07] LABS: Lactic Acid 12.1 mmol/L (0.4-1.9)
[2024-01-19 00:17] LABS: Color, Urine Yellow (Yellow); Glucose, Dipstick Normal (Normal); Ketone-Dipstick 5 mg/dl (Negative); Leukocyte Esterase-Dipstick 25 /ul (Negative); Nitrite-Dipstick Negative (Negative); Occult Blood-Urine 250 /ul (Negative); Protein-Dipstick 30 mg/dl (Negative); Urine Bilirubin Dipstick Negative (Negative); Urine Clarity Clear (Clear); Urine Urobilinogen 1 mg/dl (Normal)
[2024-01-19] MEDS: Sodium Bicarbonate 8.4% 50 ML Syringe 50 MEQ IV (00:23)
[2024-01-19 00:39] LABS: Bacteria RARE /hpf (None Seen); Red Blood Cells-Urine 25-50 SEEN /hpf (0-5); Transitional Epithelial - Ur 0-5 SEEN /hpf (0-5)
[2024-01-19] MEDS: Sodium Bicarbonate 150 MEQ in Dextrose 5%-Water (1000mL Bag) 1,000 ML 100 MEQ IV (00:44)
[2024-01-19] MEDS: Albumin Human 25% (100 mL) 25 GM/100 ML BAG IV (00:45)
[2024-01-19 00:50] LABS: Amphetamine Urine VISTA POSITIVE (<1000 ng/mL); Barbiturate Urine VISTA NEGATIVE (< 200 ng/mL); Benzodiazepine Urine VISTA NEGATIVE (< 200 ng/mL); Cocaine Urine VISTA NEGATIVE (< 300 ng/mL); Ecstacy Urine VISTA NEGATIVE (< 500 ng/mL); Methadone Urine VISTA NEGATIVE (< 300 ng/mL); PCP Urine VISTA NEGATIVE (< 25 ng/mL); THC Urine VISTA NEGATIVE (< 50 ng/mL); Vista UDS pH Range 5
[2024-01-19] MEDS: Phytonadione (Vit K) 10 MG in 0.9% Normal Saline (50mL Bag) 50 ML 150 MG IV (01:06)
[2024-01-19] MEDS: Vasopressin 20 UNITS in 0.9% Normal Saline (50mL Bag) 24 ML 3 UNITS CONT INF (01:08)
[2024-01-19] MEDS: Pantoprazole Sodium 80 MG in 0.9% Normal Saline (50mL Bag) 15 ML 420 MG IV BOLUS (01:32)
[2024-01-19] MEDS: Ceftriaxone 1 GM/50 ML BAG IV (01:42)
[2024-01-19] MEDS: Pantoprazole Sodium 80 MG in 0.9% Normal Saline (100mL Bag) 80 ML 10 MG CONT INF (01:45)
[2024-01-19 01:49] LABS: Hematocrit 15.7 % (40-54); POSITIVE COUNT YES
[2024-01-19] MEDS: Octreotide 0.5 MG in Dextrose 5%-Water (250mL Bag) 249 ML 25 MG CONT INF (01:50)
[2024-01-19] MEDS: Hydrocortisone Sod Succinate 100 MG/2 ML Vial IV (01:50)
[2024-01-19 01:52] LABS: Hemoglobin 4.7 g/dL (13.0-16.5)
--- NOTE | 2024-01-19 01:57 | EX.ED.DYSGE1 ---
HPI History of Present Illness Chief Complaint: Chest Pain Informant: patient, spouse/S.O. and EMS Narrative Narrative: 48-year-old male presenting to the emergency department with reported epigastric pain. Per the the patient has had some pain in his upper abdomen over the past several days. She went to take a shower and he called her stating that he was laying down and if she could come see him. She states that he was on the floor complaining of epigastric left upper quadrant pain. EMS states they arrived and found her profoundly tachycardic confused and hypertensive. They note that he was extremely pale. The patient himself cannot give much information. He is writhing in the bed. When I ask him where he is hurting he is tells me to hold on all roll over and show you. After that I do not hear much other than mumbling from the patient. 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 Lumbar disc disease with radiculopathy Lumbar disc prolapse with compression radiculopathy Malnutrition Morbid obesity due to excess calories Osteoporosis Other intervertebral disc degeneration, lumbar region Perianal abscess Rheumatoid arthritis Sepsis Sleep apnea Spinal stenosis of lumbar region with neurogenic claudication Thrombocytopenia Ulcer of left ankle Ulcer of right lower extremity with fat layer exposed Vein disorder Venous insufficiency Home Medications gabapentin 300 mg capsule 300 mg PO Q12H NERVE PAIN 02/11/19 [History Last Taken 10/24/23] tamsulosin 0.4 mg capsule 0.4 mg PO QHS PROSTATE 04/05/21 [History Last Taken 10/23/23] dextroamphetamine-amphetamine 15 mg tablet 15 mg PO BID ADHD 12/25/21 [History Last Taken 10/24/23] omeprazole 40 mg capsule,delayed release 40 mg PO DAILY GERD 12/25/21 [History Last Taken 10/24/23] sildenafil 50 mg tablet 50 mg PO X1 PRN Erectile Dysfunction 12/25/21 [History Last Taken Unknown] metformin 1,000 mg tablet 1,000 mg PO BID DIABETES 06/02/23 [History Last Taken 10/24/23] promethazine 25 mg tablet 25 mg PO Q8H PRN NAUSEA/VOMITING 06/02/23 [History Last Taken Unknown] tizanidine 4 mg tablet 4 mg PO Q8H PRN MUSCLE SPASMS 06/02/23 [History Last Taken Unknown] lamotrigine 200 mg tablet 200 mg PO DAILY depression 08/21/23 [History Last Taken 10/24/23] buspirone 5 mg tablet 5 mg PO TID mood 10/24/23 [History Last Taken 10/24/23] desvenlafaxine succinate 25 mg tablet,extended release 24 hr 25 mg PO DAILY depression 10/24/23 [History Last Taken 10/24/23] lorazepam 1 mg tablet 1 mg PO DAILY PRN panic attacks 10/24/23 [History Last Taken 10/12/23] metoprolol succinate 100 mg tablet,extended release 24 hr 100 mg PO Q12H hrt 10/24/23 [History Last Taken Unknown] quetiapine 25 mg tablet 50 mg PO QHS mood 10/24/23 [History Last Taken 10/23/23] semaglutide 0.25 mg or 0.5 mg (2 mg/3 mL) subcutaneous pen injector (Ozempic) 0.25 mg subcut QWEEK 10/24/23 [History Last Taken 12/02/23] spironolactone 50 mg tablet 50 mg PO DAILY BP 10/24/23 [History Last Taken 10/24/23] benztropine 1 mg tablet 1 mg PO BID #60 tabs 10/29/23 [Rx Last Taken Unknown] furosemide 40 mg tablet 40 mg PO 1XD #30 tabs 10/29/23 [Rx Last Taken Unknown] lamotrigine 100 mg tablet 100 mg PO QHS #0 tabs 10/29/23 [Rx Last Taken Unknown] lisinopril 40 mg tablet 20 mg (1/2 x 40 mg) PO DAILY BLOOD PRESSURE #1 TAB 10/29/23 [Rx Last Taken 10/24/23] potassium chloride 20 mEq tablet,extended release(part/cryst) 20 meq PO DAILYCM #30 tabs 10/29/23 [Rx Last Taken Unknown] quetiapine 25 mg tablet 50 mg (2 x 25 mg) PO QHS #0 tabs 10/29/23 [Rx Last Taken Unknown] spironolactone 50 mg tablet 50 mg PO DAILY #0 tabs 10/29/23 [Rx Last Taken Unknown] cephalexin 500 mg capsule 500 mg PO Q12H PRN takes w fver and leg pain as needed 12/03/23 [History Last Taken Unknown] Allergy/AdvReac Type Severity Reaction Status Date / Time No Known Allergies Allergy Verified 01/18/24 22:30 Family History (Updated 10/24/23 @ 18:[address] Catrachita Infante MD) Mother Cancer COPD (chronic obstructive pulmonary disease) Hypertension Father Cancer COPD (chronic obstructive pulmonary disease) Hypertension Surgical History history incision and drainage perianal abscess (~10/05/20) History of cholecystectomy History of gastric surgery Status post laparoscopic Lazaro fundoplication Social History household members: spouse and children Smoking Status: Former smoker quit date: 10/12/11 pack-years: 2 Tobacco: How many years used: 20 alcohol intake: never substance use type: does not use ROS ROS ED Review of Systems ROS Unobtainable: due to mental status Gastrointestinal Gastrointestinal: Reports abdominal pain EXAM Physical Exam Const Vital Signs: 01/19/24 03:46 01/19/24 03:28 01/19/24 03:46 Temperature 93.3 F L 93.2 F L 92.6 F L Temperature Source Axillary Core Core Pulse Rate 79 75 77 Respiratory Rate 18 18 18 Blood Pressure 42/12 L 36/22 L 48/23 L Blood Pressure Mean 22 26 31 Blood Pressure Source Monitor Monitor Monitor Blood Pressure Position Supine Supine Supine Blood Pressure Location Left Arm Left Arm Left Arm Pulse Ox 100 100 100 Oxygen Delivery Method Mechanical Ventilator Mechanical Ventilator Mechanical Ventilator Fraction of Inspired Oxygen (FIO2) 50 01/19/24 04:41 01/19/24 04:44 01/19/24 04:59 Temperature 92.5 F L 92.5 F L 92.4 F L Temperature Source Core Core Core Pulse Rate 77 76 73 Respiratory Rate 18 18 18 Blood Pressure 57/29 L 57/29 L 35/17 L Blood Pressure Mean 38 38 23 Blood Pressure Source Monitor Monitor Monitor Blood Pressure Position Supine Supine Supine Blood Pressure Location Left Arm Left Arm Left Arm Pulse Ox 100 100 100 Oxygen Delivery Method Mechanical Ventilator Mechanical Ventilator Mechanical Ventilator Fraction of Inspired Oxygen (FIO2) 50 01/19/24 03:15 01/19/24 03:25 01/19/24 03:30 Temperature Temperature Source Pulse Rate 67 75 76 Respiratory Rate 18 18 18 Blood Pressure 36/22 L Blood Pressure Mean 28 Blood Pressure Source Blood Pressure Position Blood Pressure Location Pulse Ox 100 100 100 Oxygen Delivery Method Mechanical Ventilator Mechanical Ventilator Fraction of Inspired Oxygen (FIO2) 01/19/24 03:40 01/19/24 03:45 01/19/24 03:47 Temperature Temperature Source Pulse Rate 80 79 79 Respiratory Rate 18 18 18 Blood Pressure 48/23 L 42/12 L Blood Pressure Mean 28 22 Blood Pressure Source Blood Pressure Position Blood Pressure Location Pulse Ox 100 100 100 Oxygen Delivery Method Mechanical Ventilator Fraction of Inspired Oxygen (FIO2) 01/19/24 03:51 01/19/24 03:55 01/19/24 04:00 Temperature Temperature Source Pulse Rate 78 79 79 Respiratory Rate 16 18 18 Blood Pressure 39/22 L 43/27 L 39/26 L Blood Pressure Mean 29 34 33 Blood Pressure Source Blood Pressure Position Blood Pressure Location Pulse Ox 100 99 99 Oxygen Delivery Method Fraction of Inspired Oxygen (FIO2) 01/19/24 04:05 01/19/24 04:10 01/19/24 04:15 Temperature Temperature Source Pulse Rate 79 80 80 Respiratory Rate 18 18 18 Blood Pressure 42/17 L 38/18 L 31/21 L Blood Pressure Mean 22 26 26 Blood Pressure Source Blood Pressure Position Blood Pressure Location Pulse Ox 100 100 99 Oxygen Delivery Method Mechanical Ventilator Fraction of Inspired Oxygen (FIO2) 50 01/19/24 04:21 01/19/24 04:26 01/19/24 04:30 Temperature Temperature Source Pulse Rate 80 79 79 Respiratory Rate 18 18 18 Blood Pressure 68/57 L 67/49 L Blood Pressure Mean 63 56 Blood Pressure Source Blood Pressure Position Blood Pressure Location Pulse Ox 100 100 100 Oxygen Delivery Method Mechanical Ventilator Fraction of Inspired Oxygen (FIO2) 50 01/19/24 04:31 01/19/24 04:36 01/19/24 04:40 Temperature Temperature Source Pulse Rate 79 78 77 Respiratory Rate 18 18 18 Blood Pressure 45/34 L 57/29 L Blood Pressure Mean 22 40 39 Blood Pressure Source Blood Pressure Position Blood Pressure Location Pulse Ox 100 100 100 Oxygen Delivery Method Fraction of Inspired Oxygen (FIO2) 01/19/24 04:45 01/19/24 04:50 01/19/24 04:56 Temperature Temperature Source Pulse Rate 76 74 74 Respiratory Rate 18 18 18 Blood Pressure 50/16 L 40/17 L 35/17 L Blood Pressure Mean 29 24 24 Blood Pressure Source Blood Pressure Position Blood Pressure Location Pulse Ox 100 100 100 Oxygen Delivery Method Fraction of Inspired Oxygen (FIO2) 01/19/24 05:00 01/19/24 05:05 01/19/24 05:10 Temperature 92.4 F L 92.3 F L Temperature Source Core Core Pulse Rate 73 72 72 Respiratory Rate 18 18 18 Blood Pressure 40/26 L 49/18 L Blood Pressure Mean 33 29 Blood Pressure Source Blood Pressure Position Blood Pressure Location Pulse Ox 100 100 100 Oxygen Delivery Method Mechanical Ventilator Mechanical Ventilator Fraction of Inspired Oxygen (FIO2) 50 50 01/19/24 05:15 01/19/24 05:16 01/19/24 05:21 Temperature 92.3 F L Temperature Source Core Pulse Rate 72 73 77 Respiratory Rate 18 18 18 Blood Pressure 68/40 L Blood Pressure Mean 27 50 Blood Pressure Source Blood Pressure Position Blood Pressure Location Pulse Ox 100 100 99 Oxygen Delivery Method Mechanical Ventilator Fraction of Inspired Oxygen (FIO2) 50 01/19/24 05:26 01/19/24 05:30 01/19/24 05:31 Temperature Temperature Source Pulse Rate 73 73 73 Respiratory Rate 18 18 18 Blood Pressure Blood Pressure Mean 24 Blood Pressure Source Blood Pressure Position Blood Pressure Location Pulse Ox 100 99 100 Oxygen Delivery Method Fraction of Inspired Oxygen (FIO2) 50 01/19/24 05:35 01/19/24 05:40 01/19/24 05:45 Temperature Temperature Source Pulse Rate 73 74 73 Respiratory Rate 18 16 18 Blood Pressure 31/21 L 49/18 L Blood Pressure Mean 26 29 Blood Pressure Source Blood Pressure Position Blood Pressure Location Pulse Ox 100 100 Oxygen Delivery Method Fraction of Inspired Oxygen (FIO2) 01/19/24 05:50 01/19/24 06:00 01/19/24 05:55 Temperature 92.6 F L Temperature Source Core Pulse Rate 79 80 79 Respiratory Rate 18 18 18 Blood Pressure 40/26 L 75/62 L 56/32 L Blood Pressure Mean 32 66 40 Blood Pressure Source Blood Pressure Position Blood Pressure Location Pulse Ox 100 100 100 Oxygen Delivery Method Mechanical Ventilator Mechanical Ventilator Fraction of Inspired Oxygen (FIO2) 60 60 01/19/24 06:00 01/19/24 06:05 01/19/24 06:11 Temperature Temperature Source Pulse Rate 102 H 92 119 H Respiratory Rate 18 18 18 Blood Pressure 75/62 L 42/32 L 44/21 L Blood Pressure Mean 68 38 30 Blood Pressure Source Blood Pressure Position Blood Pressure Location Pulse Ox 100 100 100 Oxygen Delivery Method Fraction of Inspired Oxygen (FIO2) 01/19/24 06:15 01/19/24 06:22 01/19/24 06:30 Temperature Temperature Source Pulse Rate 145 H 73 73 Respiratory Rate 18 18 Blood Pressure 31/19 L Blood Pressure Mean 25 Blood Pressure Source Blood Pressure Position Blood Pressure Location Pulse Ox 100 100 100 Oxygen Delivery Method Fraction of Inspired Oxygen (FIO2) 01/19/24 06:32 01/19/24 06:35 01/19/24 06:40 Temperature Temperature Source Pulse Rate 74 73 74 Respiratory Rate 12 18 18 Blood Pressure 82/34 L 83/59 L 41/23 L Blood Pressure Mean 47 68 28 Blood Pressure Source Blood Pressure Position Blood Pressure Location Pulse Ox 100 100 100 Oxygen Delivery Method Fraction of Inspired Oxygen (FIO2) 01/19/24 06:45 01/19/24 06:46 01/19/24 06:51 Temperature Temperature Source Pulse Rate 73 73 74 Respiratory Rate 18 15 18 Blood Pressure 77/19 L Blood Pressure Mean 24 29 Blood Pressure Source Blood Pressure Position Blood Pressure Location Pulse Ox 100 100 Oxygen Delivery Method Fraction of Inspired Oxygen (FIO2) 01/19/24 06:56 01/19/24 07:00 01/19/24 08:00 Temperature Temperature Source Pulse Rate 73 73 40 L Respiratory Rate 18 18 Blood Pressure 107/61 0/0 L Blood Pressure Mean 75 Blood Pressure Source Blood Pressure Position Blood Pressure Location Pulse Ox 100 100 Oxygen Delivery Method Fraction of Inspired Oxygen (FIO2) Positive well nourished, well developed and obese General Appearance ED: well developed Nutritional Appearance: obese HEENT Reports normocephalic, head/scalp atraumatic and dry mucous membranes HEENT Narrative: Pale lips Mouth ED: Yes dry mucous membranes Mouth: dry mucous membranes Eyes PERRL and EOMs intact bilaterally Neck no lymphadenopathy, supple and no JVD Resp Resp Narrative: Patient is tachypneic Cardio regular rate, regular rhythm and no murmurs Rate: tachycardic GI GI Narrative: Difficult to get examination as the patient is writhing. However once sedated the abdomen is soft though exam is extremely limited due to body habitus Palpation: soft Back/Spine no CVA tenderness Extremity General Extremety ED: Yes edema General Extremity: edema bilateral lower extremity Neuro Neuro Narrative: Moves all extremities. Makes attempt to answer question. Sensorium / Orientation: stuporous Psych Psych Narrative: Patient is writhing in the bed Skin Skin Narrative: Patient is profoundly pale cool to the touch in all extremities. There is evidence of mottling of the legs MDM MDM MDM Narrative Medical decision making narrative: Patient brought into the resuscitation room by EMS. Initial EKG is a sinus tachycardia. I was unable to visualize the aorta on abdominal ultrasound. Independent interpretation of the initial chest x-ray no acute process. Is patient writhing in bed repeating minimal words but I cannot get him to say that may roll overall show you where it hurts. He then decreased his mental status and was not responding to my voice but did withdrawal to sternal rub. Decision was made to intubate the patient as he appeared significantly ill. Patient underwent RSI with etomidate and rocuronium. An 8-0 endotracheal tube was placed on the first attempt without any difficulty. Was secured at 24 cm. Equal breath sounds bilaterally good color change. Patient became profoundly hypotensive. While awaiting sedation medications from pharmacy he received a dose of Versed. He was being sedated with Precedex. Because of the patient's profound illness decision was made to go ahead and place a right internal jugular central line. This was obtained on the first attempt without any difficulty. It was performed using a modified Seldinger technique under ultrasound guidance. This was secured into place. An OG tube was placed by this physician. No blood was seen when suction applied. No stool in the rectal vault. Patient was taken emergently for CTA of the aorta including chest abdomen pelvis. During this time fluids were started blood products were being prepared by blood bank. Patient was brought back to the room where he was transfused 2 units of trauma blood 2 units of packed red blood cells. 2 units of FFP were ordered. We do not have platelets available at this institution. Levophed was started and the patient received a total of 3 L normal saline fluid bolus in addition to maintenance at 250. ABG returns at 7.04 with a pCO2 of 34.8 pO2 of 191.7 and bicarb of 9.4. He was started on a bicarb drip and given 1 amp of bicarbonate. Levophed was continued to be titrated upwards. Laboratory studies are below and most significant for the lactic acid is 12 the preresuscitation hemoglobin is 6.4. INR significantly elevated at 3.2 and he is not on anticoagulants that we are aware of. He received vitamin K. Because of his history of varices I also gave him Rocephin octreotide and Protonix. I spoke with the radiologist regarding the CT results see below. I performed a very limited bedside ultrasound to see if I could appreciate any RV collapse which I am not seeing after his initial CT. Patient continues to be profoundly hypotensive despite Levophed and he was given albumin as well as vasopressin. It is clear that the patient needs a higher level of care. I spoke with the who requested that I speak with her children. I spoke with them and they are in agreement to transfer to higher level of care. He is typically seen in the [facility] system. I spoke with [facility]. They do not have any bed availability at this time and he would be waitlisted. I spoke with [facility] transfer system and then spoke with MICU at [facility]. They are requesting some additional labs and repeat ABG. Repeat ABG continues to show pH is 7.0 despite the bicarbonate therapy and increased respiratory rate to 18. We have given stress dose steroids. We have covered additionally with vancomycin and cefepime. MICU at [place] has requested the patient be clinically more stable before transfer. He still continues to be profoundly hypotensive. I believe the patient needs to be emergently transported to higher level of care. I attempted to perform bedside ultrasound again to evaluate heart function. Again I have very limited windows to see. I spoke with [facility] cardiology Dr. Ball. It is felt that not having good windows and performing a pericardiocentesis without CT surgery backup with the bleeding disorders would be ill-advised. Very difficult to obtain ABG sample from the wrist given the hypotension even with ultrasound guidance. This would make placing an art line exceedingly difficult. Body habitus would also make placing a femoral art line very difficult at this time. I spoke with [facility] MICU. Again he is very critical and unstable for transport to be excepted there. Patient was noted to begin to have PACs as well as ST elevation on the monitor. I spoke with the family at length at the bedside. We are maxing out therapy. He is continuing to receive Levophed vasopressin blood products fluids and remains critically ill. He is no longer breathing over the vent. He has become hypothermic and we are attempting to warming with bear hugger. He is an uric at this time he continues to be very pale. Spoke with [facility] and we agreed to do a paracentesis to obtain a sample of the fluid. I spoke with the family and the provided informed consent. Right lower quadrant was identified on ultrasound is having a substantial amount of fluid. The skin was washed with chlorhexidine. The skin was locally anesthetized using 1% lidocaine. Using ultrasound guidance and using a Z track I introduced the needle was able to aspirate about 20 cc of red fluid. Needle was withdrawn this was sent to the lab. I informed [facility] of the results his blood pressure is currently 38 systolic. I spoke with the family and using shared decision making we went ahead and made the decision to withdraw care. Formal DNR PLATER HELPER paperwork signed. We continued life support until his children could arrive. He received 50 mcg of fentanyl. He was terminally extubated and pressors were stopped. The patient was pronounced shortly thereafter at 0815 hrs. History & Record Review Discussion w/independent historian: EMS personnel, Patient, Family and Significant other Lab Data Attestation: I reviewed the patient's lab results. Labs: Laboratory Results - last 24 hr 01/18/24 01/18/24 01/18/24 22:35 22:35 22:38 Diff Path Review Reviewed Fibrinogen < 60 L* D-Dimer Quant (PE/DVT) > 20.00 H* Lactic Acid Troponin I High Sens Fluid Source Fluid Color Fluid Appearance Fluid WBC Fluid RBC Fluid Tot Cell Count Fld Polynuclear WBCs # Fld Polynuclear WBCs % Fluid Mononuclear WBCs Fld Mononuclear WBCs % Fluid Neutrophils Fluid Lymphocytes Fluid Monocytes Fl Pathologist Comment Fluid Comment 2 Crossmatch See Detail See Detail 01/19/24 01/19/24 01/19/24 01:42 03:15 05:15 Diff Path Review Reviewed Fibrinogen D-Dimer Quant (PE/DVT) Lactic Acid 11.8 H* Troponin I High Sens 465 H* Fluid Source ASCITES FLUID Fluid Color RED Fluid Appearance CLOUDY Fluid WBC 5.539 Fluid RBC 0.102 Fluid Tot Cell Count 5.542 Fld Polynuclear WBCs # 0.163 Fld Polynuclear WBCs % 2.9 Fluid Mononuclear WBCs 5.376 Fld Mononuclear WBCs % 97.1 Fluid Neutrophils 3 Fluid Lymphocytes 94 Fluid Monocytes 3 Fl Pathologist Comment May follow Fluid Comment 2 SEE COMMENT Crossmatch ABG Data ABG results: ABG 01/18/24 01/19/24 23:51 02:47 Specimen Type ART ART Sample Site R Radial L Radial pH 7.04 L* 7.04 L* Bicarbonate Actual 9.4 L 8.5 L Total CO2 11 9 Base Excess -21 L -22 L O2 Saturation 99 99 O2 % 80.0 70.0 ABG pCO2 34.8 L 31.6 L ABG pO2 192 H 199 H Adis Test Negative Negative Respiration Rate 16 18 O2 Delivery Device Adult Vent Adult Vent Vent Mode AC AC Tidal Volume 500.0 500.0 POC PEEP 5 5 Crit Call To/Read Back Yes Yes Blood Gas Notified Whom tonylucina kyra Blood Gas Notified Time 23:53:29 02:49:12 Radiography Diagnostic Testing: Clinical Impression(s) from Imaging Studies Chest X-Ray 01/18/24 22:30 IMPRESSION: Poor inspiration with some bibasilar atelectasis. Electronically Signed: Anibal Silva MD at 23:23 EDT , Chest/Abdomen/Pelvis CTA 01/18/24 23:19 IMPRESSION: Negative for PE. No aortic aneurysm or dissection. Dependent atelectasis at the lung bases. Mild/moderate pericardial effusion, larger than on the prior study. Very large volume of intra-abdominal fluid, most of which is ascites, but there is increased attenuation of the fluid in the paracolic gutters which could be due to hemoperitoneum needs with the ascites versus streak artifact from the patient''s arms. Paracentesis may be of benefit to further evaluate for hemoperitoneum. No free air. Findings of hepatic cirrhosis with marked splenomegaly again noted. Flattening of the IVC and central abdominal varices, and with slight flattening of the abdominal aorta, consistent with the clinical history of hypotension. Thickening of the distal duodenal wall with surrounding haziness, consistent with duodenitis; the haziness extends about the pancreatic uncinate process, raising possibility of a minimal pancreatitis. Nonstandard communication protocol initiated. Electronically Signed: Gaudencio Alejandra MD at 0:18 EDT , ADDENDUM: 01/19/24 0101 IMPRESSION: Negative for PE. No aortic aneurysm or dissection. Dependent atelectasis at the lung bases. Mild/moderate pericardial effusion, larger than on the prior study. Very large volume of intra-abdominal fluid, most of which is ascites, but there is increased attenuation of the fluid in the paracolic gutters which could be due to hemoperitoneum needs with the ascites versus streak artifact from the patient''s arms. Paracentesis may be of benefit to further evaluate for hemoperitoneum. No free air. Findings of hepatic cirrhosis with marked splenomegaly again noted. Flattening of the IVC and central abdominal varices, and with slight flattening of the abdominal aorta, consistent with the clinical history of hypotension. Thickening of the distal duodenal wall with surrounding haziness, consistent with duodenitis; the haziness extends about the pancreatic uncinate process, raising possibility of a minimal pancreatitis. Nonstandard communication protocol initiated. N.B. : The above Results were Read Back by Gaudencio Alejandra MD to Odilon Huang DO, and understanding confirmed on 01/19/2024 00:54:42 (ET). Electronically Signed: Gaudencio Alejandra MD at 0:18 EDT , EKG Initial EKG: Attestation: I personally reviewed and interpreted this EKG as follows: Comments: Sinus tachycardia ventricular rate of 148 bpm Follow-up EKG: Attestation: I personally reviewed and interpreted this EKG as follows: Comments: Normal sinus rhythm ventricular rate of 60 bpm Management Discussion w/another healthcare provider: Plumber Apprentice (MICU ([facility] MICU ([facility]) [facility] Cardiology (Dr.. 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 by mouth once daily as needed 1 hour before sexual activity; may take up to 4 hours before sexual activity. omeprazole 40 mg capsule,delayed release(DR/EC) 40 mg PO DAILY dextroamphetamine-amphetamine 15 mg Tablet 15 mg PO BID promethazine 25 mg tablet 25 mg PO Q8H PRN (Reason: NAUSEA/VOMITING) tizanidine 4 mg tablet 4 mg PO Q8H PRN (Reason: MUSCLE SPASMS) metformin 1,000 mg tablet 1,000 mg PO BID lamotrigine 200 mg tablet 200 mg PO DAILY Patient Comments: Take 1 tablet by mouth every morning. Please schedule follow-up appt for further refills quetiapine 25 mg tablet 50 mg PO QHS Patient Comments: Take 1 tablet by mouth daily at bedtime. buspirone 5 mg tablet 5 mg PO TID Patient Comments: Take 1 tablet by mouth three times daily. metoprolol succinate 100 mg tablet extended release 24 hr 100 mg PO Q12H Patient Comments: not taking because it makes him feel funny lorazepam 1 mg tablet 1 mg PO DAILY PRN (Reason: panic attacks) Patient Comments: Take 1 tablet by mouth once daily as needed (severe panic symptoms) for up to 30 days. spironolactone 50 mg tablet 50 mg PO DAILY desvenlafaxine succinate 25 mg tablet extended release 24 hr 25 mg PO DAILY Patient Comments: Take 1 tablet by mouth daily with breakfast. Ozempic 0.25 mg or 0.5 mg (2 mg/3 mL) pen injector 0.25 mg subcut QWEEK Rx Instructions: for 4 weeks quetiapine 25 mg Tablet 50 mg PO QHS Qty: 0 0RF furosemide 40 mg Tablet 40 mg PO 1XD Qty: 30 0RF potassium chloride 20 mEq Tablet,Er Particles/Crystals 20 meq PO DAILYCM Qty: 30 0RF lamotrigine 100 mg Tablet 100 mg PO QHS Qty: 0 0RF spironolactone 50 mg Tablet 50 mg PO DAILY Qty: 0 0RF lisinopril 40 mg tablet 20 mg PO DAILY Qty: 1 0RF benztropine 1 mg tablet 1 mg PO BID Qty: 60 0RF cephalexin 500 mg capsule 500 mg PO Q12H PRN (Reason: takes w fver and leg pain as needed) Patient Comments: TAKE 1 CAPSULE BY MOUTH TWICE DAILY FOR 7 DAYS--may start onset of s/s infection Primary Care Provider: Omari Box Referrals: Omari Box MD [Primary Care Provider] - Disposition Disposition: Discharge Date/Time: 01/19/24 10:40 Date/Time: 01/19/24 08:15
[2024-01-19 02:29] LABS: Acetaminophen (Tylenol) Level 4.8 ug/mL (10.0-30.0); Salicylate < 1.7 mg/dL (2.8-20.0)
[2024-01-19 02:57] LABS: Reflex Lactate? Y
[2024-01-19 02:58] LABS: Allen Test Negative; Base Excess -22 mmol/L (-2 to +2); Bicarbonate 8.5 mmol/L (22-26); Blood Gas Specimen Type ART; Mode AC; O2 Delivery Device Adult Vent; PEEP 5; PO2 199 mmHG (75-100); RR 18; SITE L Radial; SO2 99 % (95-99); Total Carbon Dioxide 9 mmol/L; pCO2 31.6 mmHg (35-45); pH 7.04 (7.35-7.45)
[2024-01-19 03:08] LABS: Fibrinogen < 60 mg/dl (203-444)
[2024-01-19] MEDS: 0.9% Normal Saline (1000mL) 1,000 ML 250 ML IV (03:15)
[2024-01-19] MEDS: Norepinephrine 8 MG in 0.9% Normal Saline (250mL Bag) 242 ML 56.3 MG CONT INF (03:28)
[2024-01-19] MEDS: Cefepime HCl 1 GM in 0.9% Normal Saline (50mL MB+) 50 ML IV (03:40)
[2024-01-19 03:50] LABS: Lactic Acid 11.8 mmol/L (0.4-1.9); Troponin-I HS 465 pg/mL (3.0-78.0)
[2024-01-19 04:09] LABS: D-Dimer Quantitative (DVT/PE) > 20.00 FEU/ug/m (0.27-0.49)
[2024-01-19] MEDS: Vancomycin HCl 2,000 MG in 0.9% Normal Saline (500mL Bag) 500 ML 250 MG IV (04:25)
[2024-01-19] MEDS: Potassium Chloride 10mEq/100mL 10 MEQ/100 ML IV.SOLN. 100 MEQ IV BOLUS ×2 (04:27→05:16)
[2024-01-19] MEDS: Lidocaine 1% (20 ml mdv) 20 ML Vial 5 ML INFILT (05:14)
[2024-01-19 07:26] LABS: Body Fluid Mononuclear WBC # 5.376 10^3/uL; Body Fluid Mononuclear WBC % 97.1 %; Body Fluid Polynuclear WBC # 0.163 10^3/uL; Body Fluid Polynuclear WBC % 2.9 %; Body Fluid Total Cells Counted 5.542 10^3/ul; Red Cell Count/Body Fluid 0.102 10^6/ul; White Blood Count/Body Fluid 5.539 10^3/uL
[2024-01-19] MEDS: fentaNYL 100 MCG/2 ML Ampul 50 MCG IV (07:39)
--- NOTE | 2024-01-19 07:44 | CPS ---
PATIENT WAS TERMINALLY EXTUBATED PER DR ESPINOSA TO 2l FOR COMFORT. hr 95. AT 744AM
--- NOTE | 2024-01-19 07:48 | ED.RN ---
PT TERMINALLY EXTUBATED. DR ESPINOSA, THIS RN, ANGIE URRUTIA RN AND RESPIRATORY IN ROOM. FAMILY REMAINS AT BEDSIDE. ALL MONITORS TURNED OFF. VERBAL AGREEMENT WITH DR ESPINOSA AND FAMILY
--- NOTE | 2024-01-19 08:20 | ED.RN ---
PT TOD AT 0879
[2024-01-19 09:04] LABS: Auto B Fluid Analyzer BKGD Ct COUNTS W/IN LIMITS (W/IN LIMITS); Body Fluid QC Type(s) BF1Q; Color/Body Fluid RED; Lymphocytes 94 %; Monocytes 3 %; Neutrophil (Segs) 3 %; Source- Body Fluid ASCITES FLUID
--- NOTE | 2024-01-19 09:27 | CHAPLAIN ---
Type of Pastoral Visit ___ Initial Visit ___ Follow-up Visit _x__ On-call Visit ___ General Patient Visit ___ Spiritual Assessment _x__ Family Conference _x__ Bereavement ___ Rapid Response ___ Code Blue ___ Other (describe below) Pastoral Care Referral From ___ Patient ___ Family _x__ Nurse ___ Physician ___ Ink Blender ___ Hris Administrator _x__ Other (describe below) Sacrament/Intervention _x__ Active listening ___ Anointing ___ Jewish _x__ Bereavement ___ Communion ___ Savanna exploration ___ ___ Life review _x__ Prayer ___ Reconciliation ___ Sacrament of Sick _x__ Supportive presence ___ Wedding ___ Other (describe below) Pastoral Comments was called by warehouse operations associate for assistance at 6:30 a.m. and arrived at ED just prior to 7:00 a.m.; patient had been intubated and medical personnel indicated pt is not expected to live without the vent; many family members were in the room and several more were in the hallways including spouse, former spouse, children, siblings, father, aunts and uncles; gave presence and offer of support to family; spouse requested prayer which was given at bedside; many tears expressed by family; later other relatives arrived and escorted to room; offered beverages and ongoing presence for nearly two hours; ultimately the patient was extubated and within minutes; talked with individual members of the family at various times as they came and went from room and during procedures; asked questions of family so they would have words to share while in the presence of the patient; notified nurses when this gear shaper left the unit following the departure of most of the family members
[2024-01-19 09:40] LABS: Appearance/Body Fluid CLOUDY
--- NOTE | 2024-01-19 11:30 | ED.RN ---
PT DENTURES FOUND ON THE BACK OF THE BED. DENTURES LABELED AND PLACED IN DENTURE CUP. NURSING PRIMARY HEALTH CARE NURSE NOTIFIED TO PICK THEM UP.
[2024-01-19 15:53] LABS: Pathologist Review Reviewed
[2024-01-19 15:54] LABS: Pathologist Review Reviewed
[2024-01-20 05:07] LABS: HEPATITIS B SURFACE AG Negative (Negative); Hep C Antibodies Non Reactive (Non Reactive); Hepatitis A IgM Antibody Negative (Negative); Hepatitis B Core AB IgM Negative (Negative)
[2024-01-20 15:40] LABS: Pathologist Comment/Body Fluid Reviewed
== END 2024-01-19 10:40 ==
PROVIDERS: Emergency Provider Emergency Medicine; PCP Internal Medicine; Visit Provider Emergency Medicine
DX: R57.1 Hypovolemic shock (principal); K74.60 Unspecified cirrhosis of liver; J96.90 Respiratory failure, unspecified, unspecified whether with hypoxia or hypercapnia; E11.9 Type 2 diabetes mellitus without complications; K75.81 Nonalcoholic steatohepatitis (NASH); Z87.891 Personal history of nicotine dependence; D65 Disseminated intravascular coagulation [defibrination syndrome]; K66.1 Hemoperitoneum; E66.9 Obesity, unspecified; E87.4 Mixed disorder of acid-base balance; K21.9 Gastro-esophageal reflux disease without esophagitis; Z79.899 Other long term (current) drug therapy; F32.A Depression, unspecified; Z79.84 Long term (current) use of oral hypoglycemic drugs; Z79.85 Long-term (current) use of injectable non-insulin antidiabetic drugs; Z90.49 Acquired absence of other specified parts of digestive tract
CPT/HCPCS: 49083; 36556; 43752; 31500; 36430; 36600; 51702; 71045; 71275; 74174; 80048; 80074; 80076; 80307; 80320; 80329; 81001; 82803; 83605; 83690; 84484; 85014; 85018; 85025; 85379; 85384; 85610; 85730; 86850; 86900; 86901; 86920; 86921; 86922; 87040; 87070; 87075; 87086; 87205; 89050; 93005; 94002; 94003; 99252; 99285; J7030; J7040; J7050; P9016; P9017; P9047; Q9967; A4216; C1751; G0463; G0480; J3490